=== PATIENT | male | born 1945 | race Caucasian/White ===

== ENCOUNTER → 2020-05-23 14:30 | Outpatient (BNV) | payer MEDICARE, SELFPAY | PROVIDERS: PCP Internal Medicine; Visit Provider Internal Medicine | DX: C15.9 Malignant neoplasm of esophagus, unspecified (principal); R13.10 Dysphagia, unspecified; G62.0 Drug-induced polyneuropathy | CPT/HCPCS: 99213; 99214; 99215; G2211 ==

== ENCOUNTER 2020-08-02 23:55 | Inpatient (IN) | payer MEDICARE, SELFPAY ==
[2020-08-03] VITALS (15 sets, daily range): BP systolic 131–160; BP diastolic 64–102; PULSE 66–94; RESP 16–18; TEMP 36.1–37.4; O2SAT 84–97; BMI 25.9
--- NOTE | 2020-08-03 00:18 | ED_ITS ---
HPI - Abdominal Pain General Chief Complaint: Abdominal Pain Stated Complaint: ABD PAIN X'S A COUPLE HOURS Time Seen by Provider: 08/03/20 00:18 Source: patient Mode of arrival: EMS Limitations: no limitations History of Present Illness HPI narrative: Patient history of esophageal cancer status post G-tube placement 2019 had small-bowel obstruction 6 months ago was doing fine for last few months today around 18:00 noticed mid abdominal pain with feeling of gas and slight distention with nausea similar to that in last time when he had small-bowel obstruction MD elicited complaint: abdominal pain Pertinent past history: constipation and other (Small-bowel obstruction) Onset (ago): hour(s) (6) Pain Consistency: constant Location: periumbilical Severity: moderate Quality: cramping Radiation: none Migration to: no migration Exacerbating factors: nothing Relieving factors: nothing Associated symptoms: nausea Related Data Home Medications Medication Instructions Recorded Confirmed cetirizine [Allergy Relief 10 mg PO DAILY 05/23/20 08/03/20 (cetirizine)] docusate calcium 100 mg PO BID 05/23/20 08/03/20 fluticasone propionate 50 mcg INTRANASAL DAILY 05/23/20 08/03/20 lisinopril 10 mg PO DAILY 05/23/20 08/03/20 omeprazole 40 mg PO DAILY 05/23/20 08/03/20 polyethylene glycol 3350 [Miralax] 17 g PO DAILY 05/23/20 08/03/20 rosuvastatin 20 mg PO DAILY 05/23/20 08/03/20 verapamil 240 mg PO DAILY 05/23/20 08/03/20 Allergies Allergy/AdvReac Type Severity Reaction Status Date / Time No Known Allergies Allergy Verified 05/23/20 15:11 [No Known Allergies*] Review of Systems Review of Systems Constitutional : No Weight loss, No Fever, No Chills ENT/Mouth : No sore throat, No Rhinorrhea Eyes: No Eye Pain, No Swelling Cardiovascular : No Chest Pain, no palpitations Respiratory : No Cough, No Sputum, no shortness of breath Gastrointestinal :+ Nausea, No Vomiting, No Diarrhea, + abdominal Pain, no black stools Genitourinary : No Dysuria, No Urinary Frequency Musculoskeletal : No joint pain, No Myalgias, No Joint Swelling Skin : No Skin Lesions, No rash Neuro : No Weakness, No Numbness, No Dizziness, No Headache Psych : No Anxiety/Panic, No Depression Heme/Lymph: No Bruising, No Lymphadenopathy Endocrine : No Polyuria, No Polydipsia All other systems reviewed and are negative Physical Exam Vital Signs: Vital Signs: Last Vital Signs Temp 97 F 08/03/20 00:18 Pulse 66 08/03/20 03:00 Resp 18 08/03/20 03:00 BP 143/90 H 08/03/20 03:00 Pulse Ox 94 08/03/20 03:00 Body Mass Index 25.9 Appearance: Alert. Oriented X3. No acute distress. Eyes: Pupils equal, round and reactive to light. ENT: Pharynx normal. Neck: Normal inspection. Neck supple. CVS: Normal heart rate and rhythm. Pulses normal. Respiratory: No respiratory distress. Breath sounds normal. Abdomen: Soft, mid abdominal tenderness with gaseous distension Bowel sounds are hyperactive, no mass palpable, no CVA tenderness Skin: Skin warm and dry. Normal skin color. Normal skin turgor. Extremities: No lower extremity edema. Neuro: Oriented X 3. No motor deficit. No sensory deficit. MDM - Abdominal Pain MDM Narrative Medical decision making narrative: Patient with mid abdominal distension with nausea clinical small-bowel obstruction CT scan showed small bowel obstruction likely from the previous G-tube. Patient felt better after NG tube was placed and 600 cc of gastric fluid drained. Case discussed Dr. Gregory surgeon will admit the patient to his service Differential Diagnosis Differential diagnosis: Likely pancreatitis and small bowel obstruction Medical Records Attestation: I reviewed the patient's medical records. Lab Data Attestation: I reviewed the patient's lab results. Result diagrams: 08/03/20 01:12 08/03/20 01:13 Labs: Lab Results 08/03/20 08/03/20 08/03/20 Range/Units 00:15 01:11 01:12 WBC 10.4 (4.8-10.8) X10*3/uL RBC 5.27 (4.60-5.80) X10*6/uL Hgb 15.9 (14.0-18.0) g/dl Hct 46.7 (42-52) % MCV 88.6 (80-98) fL MCH 30.2 (27.0-33.0) pg MCHC 34.0 (31.0-36.0) g/dl RDW 12.9 (11.0-16.0) % Plt Count 198 (160-400) X10*3/uL MPV 10.7 (9.4-12.4) fL Immature Gran % (Auto) 0.2 (0.0-0.4) % Neut % (Auto) 73.0 (45-73) % Lymph % (Auto) 16.8 L (20-40) % Beaver % (Auto) 8.7 (2-11) % Eos % (Auto) 1.1 (0-4) % Baso % (Auto) 0.2 (0-2) % Lymph # (Auto) 1.7 (1.2-4.9) X10*3/uL Beaver # (Auto) 0.9 (0.1-1.2) X10*3/uL Eos # (Auto) 0.1 (0.0-0.4) X10*3/uL Baso # (Auto) 0.0 (0.0-0.2) X10*3/uL Abs Immat Gran (auto) 0.02 (0.00-0.03) X10*3/uL Absolute Neuts (auto) 7.6 (2.0-8.3) X10*3/uL Absolute Nucleated RBC 0.000 (0.0-0.012) X10*3/uL Nucleated RBC % (auto) 0.0 (0.0-0.2) /100WBC Sodium (135-145) mmol/L Potassium (3.3-5.1) mmol/l Chloride (96-108) mmol/L Carbon Dioxide (22-29) mmol/L Anion Gap (12-20) BUN (9-16) mg/dL Creatinine (0.5-1.4) mg/dL Estim Creat Clear Calc Estimated GFR Random Glucose (60-115) mg/dL Lactic Acid 1.4 (0.5-2.0) mmol/L Calcium (8.4-10.2) mg/dL Total Bilirubin (0.0-1.0) mg/dL Direct Bilirubin (0.0-0.5) mg/dL AST (5-37) U/L ALT (0-40) U/L Alkaline Phosphatase (39-117) U/L Total Protein (6.5-8.0) g/dL Albumin (3.5-5.0) g/dL Lipase (8-78) U/L COVID-19 (NUZHAT) Negative (Negative) COVID-19 Clin Com See Note 08/03/20 08/03/20 Range/Units 01:13 01:13 WBC (4.8-10.8) X10*3/uL RBC (4.60-5.80) X10*6/uL Hgb (14.0-18.0) g/dl Hct (42-52) % MCV (80-98) fL MCH (27.0-33.0) pg MCHC (31.0-36.0) g/dl RDW (11.0-16.0) % Plt Count (160-400) X10*3/uL MPV (9.4-12.4) fL Immature Gran % (Auto) (0.0-0.4) % Neut % (Auto) (45-73) % Lymph % (Auto) (20-40) % Beaver % (Auto) (2-11) % Eos % (Auto) (0-4) % Baso % (Auto) (0-2) % Lymph # (Auto) (1.2-4.9) X10*3/uL Beaver # (Auto) (0.1-1.2) X10*3/uL Eos # (Auto) (0.0-0.4) X10*3/uL Baso # (Auto) (0.0-0.2) X10*3/uL Abs Immat Gran (auto) (0.00-0.03) X10*3/uL Absolute Neuts (auto) (2.0-8.3) X10*3/uL Absolute Nucleated RBC (0.0-0.012) X10*3/uL Nucleated RBC % (auto) (0.0-0.2) /100WBC Sodium 139 (135-145) mmol/L Potassium 4.4 (3.3-5.1) mmol/l Chloride 105 (96-108) mmol/L Carbon Dioxide 24 (22-29) mmol/L Anion Gap 14 (12-20) BUN 11 (9-16) mg/dL Creatinine 0.95 (0.5-1.4) mg/dL Estim Creat Clear Calc 61.8 Estimated GFR > 60 Random Glucose 127 H D (60-115) mg/dL Lactic Acid (0.5-2.0) mmol/L Calcium 8.7 (8.4-10.2) mg/dL Total Bilirubin 0.3 (0.0-1.0) mg/dL Direct Bilirubin 0.2 (0.0-0.5) mg/dL AST 17 (5-37) U/L ALT 13 (0-40) U/L Alkaline Phosphatase 115 (39-117) U/L Total Protein 6.8 (6.5-8.0) g/dL Albumin 4.0 (3.5-5.0) g/dL Lipase 19 (8-78) U/L COVID-19 (NUZHAT) (Negative) COVID-19 Clin Com ECG Data Attestation: I personally reviewed and interpreted this ECG as follows: Interpretation: Normal sinus rhythm heart rate 72 left axis deviation right bundle-branch block no acute ST T wave changes no acute ischemia Discharge Plan Discharge Clinical Impression: Small bowel obstruction Patient Disposition: Admitted As Inpatient [facility] Past Medical History Medical History (Updated 08/03/20 @ 02:07 by Ulisses Gregory MD) Basal cell carcinoma, scalp/neck Cervical spondylosis Diverticulosis History of jejunostomy tube placement Hypercholesterolemia Hypertension Melanoma Osteoarthritis Prostate CA Small bowel obstruction Vitamin B12 deficiency Surgical History (Updated 08/03/20 @ 02:07 by Ulisses Gregory MD) H/O esophagectomy History of appendectomy History of incisional hernia repair History of prostatectomy Social History Social History Advance Directives: No Advance Directives Information Provided: No
--- NOTE | 2020-08-03 00:25 | ECG_ITS ---
Test Reason : ABD PAIN Blood Pressure : / mmHG Vent. Rate : 072 BPM Atrial Rate : 072 BPM P-R Int : 138 ms QRS Dur : 122 ms QT Int : 424 ms P-R-T Axes : 037 -34 000 degrees QTc Int : 464 ms Normal sinus rhythm Left axis deviation Right bundle branch block Abnormal ECG When compared with ECG of 13-FEB-2020 01:45, No significant change was found Referred By: Saul Dee Electronically Signed By:MIKHAIL OLGUIN MD
--- NOTE | 2020-08-03 00:26 | XR_ITS ---
EXAMINATION: CHEST 1 VIEW CLINICAL INFORMATION: Pain. COMPARISON: 02/13/2020. TECHNIQUE: An AP view of the chest is provided. FINDINGS: The cardiac silhouette is not enlarged. A right-sided port is in unchanged position. The mediastinal and hilar contours are unremarkable. There are neither pleural effusions nor pneumothoraces. There are no consolidations. The osseous structures are stable. XR/XR chest 1V IMPRESSION: No evidence for acute disease.
--- NOTE | 2020-08-03 00:27 | CT_ITS ---
EXAMINATION: CT ABDOMEN AND PELVIS WITHOUT CONTRAST CLINICAL INFORMATION: Mid abdominal pain. COMPARISON: 02/13/2020. TECHNIQUE: Contiguous axial thin section helical images of the abdomen and pelvis were performed without oral or IV contrast. The data set was reformatted in the coronal and sagittal planes and reviewed on an independent workstation. DLP: 596 mGy-cm. FINDINGS: The visualized lung bases are clear. The visualized portions of the heart are unremarkable. The liver is of normal size and attenuation without focal lesions nor intrahepatic biliary ductal dilation. A normal gallbladder is identified. There is no wall thickening or discernible pericholecystic fluid. The spleen, pancreas, adrenal glands are unremarkable. Both kidneys are of normal size and attenuation without hydronephrosis or nephrolithiasis. There is no abdominal free fluid. There is neither mesenteric nor retroperitoneal lymphadenopathy. The patient is status post esophagectomy and gastric pull-up. There are multiple moderately dilated loops of proximal to mid small bowel. Distal loops of small bowel are slightly compressed. There is diverticulosis without evidence of diverticulitis; otherwise, unremarkable unopacified loops of small and large bowel are identified. There is no pelvic free fluid. Surgical clips are present within the left hemipelvis. The urinary bladder is unremarkable. There is neither pelvic nor inguinal lymphadenopathy. Bone windows: Neither sclerotic nor lytic bone lesions are identified. CT/CT abdomen pelvis wo con IMPRESSION: Small bowel obstruction. Diverticulosis without evidence of diverticulitis. Automated exposure control (Care Dose) Adjustment of the mA and/or kv according to patient size (this includes techniques or standardized protocols for targeted exams where dose is matched to indication / reason for exam; i.e. extremities or head).
[2020-08-03] MEDS: ondansetron HCL 4 MG/2 ML VIAL IVPUSH ×2 (00:38→19:43)
[2020-08-03] MEDS: Morphine Sulfate 4 MG/ML CARTRIDGE IVPUSH ×6 (00:38→19:43)
[2020-08-03] MEDS: 0.9 % Sodium Chloride 1,000 ML 999 ML IVCONT (00:40)
[2020-08-03 01:26] LABS: Basophils Percent Auto 0.2 % (0-2); Eosinophils Absolute Auto 0.1 X10*3/uL (0.0-0.4); Eosinophils Percent Auto 1.1 % (0-4); Hematocrit 46.7 % (42-52); Hemoglobin 15.9 g/dl (14.0-18.0); Imm Gran Abs Auto 0.02 X10*3/uL (0.00-0.03); Imm Gran Pct Auto 0.2 % (0.0-0.4); Lymphocytes Absolute Auto 1.7 X10*3/uL (1.2-4.9); Lymphocytes Percent Auto 16.8 % (20-40); Mean Corpuscular Hemoglobin 30.2 pg (27.0-33.0); Mean Corpuscular Volume 88.6 fL (80-98); Mean Platelet Volume 10.7 fL (9.4-12.4); Monocytes Absolute Auto 0.9 X10*3/uL (0.1-1.2); Monocytes Percent Auto 8.7 % (2-11); Neutrophils Absolute Auto 7.6 X10*3/uL (2.0-8.3); Platelet Count 198 X10*3/uL (160-400); Red Blood Count 5.27 X10*6/uL (4.60-5.80); Red Cell Distribution Width 12.9 % (11.0-16.0); White Blood Count 10.4 X10*3/uL (4.8-10.8)
[2020-08-03 01:27] LABS: MANUAL DIFF FLAG NO
[2020-08-03 01:33] LABS: COVID-19 Test Negative (Negative); IDNOW Serial# 9DD0AD1C
--- NOTE | 2020-08-03 01:54 | PC.NURSE ---
16F NG TUBE INSERTED BY . AWAITING FOR CONFIRMED PLACEMENT. PT TOLERATED WELL.
--- NOTE | 2020-08-03 01:58 | PM.HPGS ---
History of Present Illness History of Present Illness Date of Service: 08/03/20 Chief complaint: small bowel obstruction Narrative: Yoseph Orellana is a 74 year old male patient with a history of esophageal cancer s/p esophagectomy in [place], and a repair of an incisional hernia with mesh (Dr. Jj) and a previous history of small bowel obstruction 6 months ago now presenting with complaints of nausea and vomiting. The symptoms started at around 18:00 yesterday after eating a blueberry pie. He tried going to bed but the symptoms progressed and he subsequently presented to the emergency department after speaking with his primary care physician. In the emergency department he was found to have abdominal distension and a CT of the abdomen obtained. This revealed dilated loops of small bowel with a transition to decompressed bowel suggestive of a small bowel obstruction. NGT was placed in the ED. He is admitted to the surgical service for management of the SBO. Review of Systems Constitutional: Constitutional: Denies chills, Denies fever(s), Denies headache(s) and Denies poor appetite ENT: Denies dizziness and Denies headache(s) Cardiovascular: Cardiovascular: Denies chest pain, Denies rapid heart rate, Denies palpitations and Denies slow heart rate Respiratory: Respiratory: Denies chest congestion, Denies cough, Denies pain on inspiration and Denies wheezing Gastrointestinal: Gastrointestinal: Reports abdominal pain, Reports bloating, Reports nausea and Reports vomiting Musculoskeletal: Musculoskeletal: Denies back pain, Denies arthralgias, Denies joint swelling and Denies numbness Integumentary/Breasts: Skin/Breast: Denies change in pigmentation, Denies erythema and Denies rash Comments: Recent shingles rash on the left abdomen Neurologic: Denies confusion, Denies dizziness, Denies headache(s) and Denies numbness Psychiatric: Psychiatric: Denies anxiety, Denies confusion and Denies depression Endocrine: Endocrine: Denies palpitations Hematologic/Lymphatic: Hematologic/Lymphatic: Denies easy bleeding, Denies easy bruising and Denies lymphadenopathy Allergic/Immunologic: Allergic/Immunologic: Denies wheezing PMFSH Past Medical History Medical History (Updated 08/03/20 @ 08:17 by Ulisses Gregory MD) Basal cell carcinoma, scalp/neck Cervical spondylosis Diverticulosis History of jejunostomy tube placement Hypercholesterolemia Hypertension Melanoma Osteoarthritis Prostate CA Shingles Small bowel obstruction Vitamin B12 deficiency Surgical History Surgical History (Updated 08/03/20 @ 02:07 by Ulisses Gregory MD) H/O esophagectomy History of appendectomy History of incisional hernia repair History of prostatectomy Social History Social History Advance Directives: No Advance Directives Information Provided: No Meds Allergies Allergy/AdvReac Type Severity Reaction Status Date / Time No Known Allergies Allergy Verified 05/23/20 15:11 [No Known Allergies*] Home Medications Medication Instructions Recorded Confirmed Type cetirizine [Allergy Relief 10 mg PO DAILY 05/23/20 08/03/20 History (cetirizine)] docusate calcium 100 mg PO BID 05/23/20 08/03/20 History fluticasone propionate 50 mcg INTRANASAL DAILY 05/23/20 08/03/20 History lisinopril 10 mg PO DAILY 05/23/20 08/03/20 History omeprazole 40 mg PO DAILY 05/23/20 08/03/20 History polyethylene glycol 3350 [Miralax] 17 g PO DAILY 05/23/20 08/03/20 History rosuvastatin 20 mg PO DAILY 05/23/20 08/03/20 History verapamil 240 mg PO DAILY 05/23/20 08/03/20 History Physical Exam Vital Signs: Vital Signs: Last Vital Signs Temp 97 F 08/03/20 00:18 Pulse 72 08/03/20 01:17 Resp 18 08/03/20 01:17 BP 131/82 08/03/20 01:17 Pulse Ox 96 08/03/20 01:17 Body Mass Index 25.9 Const: General: cooperative, comfortable and well developed; No confusion Nutritional Appearance: well nourished Orientation/consciousness: patient oriented x3 and No confusion Eyes: Sclerae: sclerae normal EOM: EOMs intact bilaterally Neck: Neck: Yes normal visual inspection Resp: Effort & Inspection: normal respiratory effort, no cough and no respiratory distress Cardio: Jugular venous distension: no JVD Rate: regular rate Rhythm: regular rhythm GI: Inspection: Yes normal to inspection Palpation (GI): Soft to palpation, nontender, no guarding and not rigid Percussion: Yes normal to percussion Auscultation: normal bowel sounds Skin: General skin exam: dry skin Rashes: rashes noted (Small residual noted in the upper abdomen to the left of umbilicus) Neuro: General: patient oriented x3, no focal motor deficits and No confusion Extrem: General: Yes full ROM and Yes no clubbing, cyanosis or edema Results Results Labs: Short CBC 08/03/20 Range/Units 01:12 WBC 10.4 (4.8-10.8) X10*3/uL Hgb 15.9 (14.0-18.0) g/dl Hct 46.7 (42-52) % Plt Count 198 (160-400) X10*3/uL EXAMINATION: CT ABDOMEN AND PELVIS WITHOUT CONTRAST CLINICAL INFORMATION: Mid abdominal pain. COMPARISON: 02/13/2020. TECHNIQUE: Contiguous axial thin section helical images of the abdomen and pelvis were performed without oral or IV contrast. The data set was reformatted in the coronal and sagittal planes and reviewed on an independent workstation. DLP: 596 mGy-cm. FINDINGS: The visualized lung bases are clear. The visualized portions of the heart are unremarkable. The liver is of normal size and attenuation without focal lesions nor intrahepatic biliary ductal dilation. A normal gallbladder is identified. There is no wall thickening or discernible pericholecystic fluid. The spleen, pancreas, adrenal glands are unremarkable. Both kidneys are of normal size and attenuation without hydronephrosis or nephrolithiasis. There is no abdominal free fluid. There is neither mesenteric nor retroperitoneal lymphadenopathy. The patient is status post esophagectomy and gastric pull-up. There are multiple moderately dilated loops of proximal to mid small bowel. Distal loops of small bowel are slightly compressed. There is diverticulosis without evidence of diverticulitis; otherwise, unremarkable unopacified loops of small and large bowel are identified. There is no pelvic free fluid. Surgical clips are present within the left hemipelvis. The urinary bladder is unremarkable. There is neither pelvic nor inguinal lymphadenopathy. Bone windows: Neither sclerotic nor lytic bone lesions are identified. CT/CT abdomen pelvis wo con IMPRESSION: Small bowel obstruction. Diverticulosis without evidence of diverticulitis. Automated exposure control (Care Dose) Adjustment of the mA and/or kv according to patient size (this includes techniques or standardized protocols for targeted exams where dose is matched to indication / reason for exam; i.e. extremities or head). Dictated By:FARHAD NUNEZ MD Signed By:<Electronically signed by FARHAD NUNEZ MD in OV>08/03/20 0107 Assessment and Plan (1) Small bowel obstruction: Status: Acute 74-year-old male patient with a previous history of multiple abdominal surgeries and previous history of small-bowel obstruction managed non operatively 6 months ago now presenting with recurrent episode of abdominal distension, nausea, and vomiting. Symptoms began last evening and he subsequently presented to the emergency department. CT of the abdomen and pelvis confirmed a small-bowel obstruction perhaps due to adhesions. A nasogastric tube was placed in the emergency department and the patient reports some relief of the abdominal pain but denies passing flatus or bowel movement. Will continue with nasogastric tube decompression and IV fluid rehydration. Patient reports understanding and agrees with the plan.
[2020-08-03 02:00] LABS: Lactic Acid 1.4 mmol/L (0.5-2.0)
--- NOTE | 2020-08-03 02:00 | PC.NURSE ---
NG CONNECTED TO SUCTION AND APPROX 500ML OF STOMACH CONTENTS IN SUCTION CANISTER. PT REMAINS ALERT, RESPIRATIONS N/L. PT STATES IM FEELING MUCH BETTER. PT ON MONITOR. VS OBTAINED. AWAITING PENDING LABS.
[2020-08-03 02:06] LABS: Alanine Aminotransferase 13 U/L (0-40); Alkaline Phosphatase 115 U/L (39-117); Anion Gap 14 (12-20); Aspartate Amino Transferase 17 U/L (5-37); Bilirubin Direct 0.2 mg/dL (0.0-0.5); Bilirubin Total 0.3 mg/dL (0.0-1.0); Blood Urea Nitrogen 11 mg/dL (9-16); Calcium 8.7 mg/dL (8.4-10.2); Carbon Dioxide 24 mmol/L (22-29); Chloride 105 mmol/L (96-108); Creatinine Clr Calc Pharmacy 61.8; Estimated Glomerular Filt Rate > 60; Glucose Random 127 mg/dL (60-115); Lipase 19 U/L (8-78); Potassium 4.4 mmol/l (3.3-5.1); Sodium 139 mmol/L (135-145); Total Protein 6.8 g/dL (6.5-8.0)
--- NOTE | 2020-08-03 02:47 | PC.NURSE ---
PT C/O LOWER ABD PAIN AND CRAMPING. MD AWARE OF PAIN. PT ALERT, RESPIRATIONS EASY, N/L. NG TUBE CONECTED TO SUCTION. PT IN NAD. WILL CONTINUE TO MONITOR PT.
--- NOTE | 2020-08-03 02:55 | PC.NURSE ---
MED REC DONE.
--- NOTE | 2020-08-03 03:21 | PC.NURSE ---
PT RATING ABD PAIN 10/10, DR CHARLES AWARE AND PT MEDICATED PER EMAR FOR PAIN. NG TUBE REMAINS INTACT AND CONNECTED TO SUCTION. NO TUBE PLACEMENT PER DR CHARLES'S ORDER D/T STOMACH CONTENTS IN SUCTION CANISTER. WILL CONTINUE TO MONITOR PT.
--- NOTE | 2020-08-03 06:27 | PC.NURSE ---
report given to floor. pt on stretcher to room #380. pt left ed in nad. pt to floor at this time.
[2020-08-03] MEDS: Dextrose 5 % and Lactated Ring 1,000 ML 125 ML IVCONT ×3 (08:26→22:57)
--- NOTE | 2020-08-03 12:24 | MHC.CM.PN ---
PT REPORTS HE LIVES AT HOME WITH HIS ANGELY AND IS INDEPENDENT WITH ALL CARE AND MOBILITY. PT DENIES THE USE OF ANY DME OR HOME SERVICES. PT HAS A HCP ON FILE NAMING HIS AND SON, NANDO, HIS PRIMARY AND ALTERNATE AGENTS RESPECTIVELY. PT CONFIRMS HIS PCP IS EDGARD MARCELINO. IMM DELIVERED CURRENT DC PLAN IS HOME WITH NO SERVICES PT REPORTS HIS SON WILL PROVIDE TRANSPORTATION
[2020-08-03] MEDS: lisinopriL 10 MG TABLET PO (18:28)
[2020-08-03] MEDS: VerapamiL HCL SR 240 MG TABLET.ER PO (19:34)
[2020-08-04 03:50] VITALS: BP 133/75; PULSE 60; RESP 16; TEMP 36.6; O2SAT 94
[2020-08-04 06:00] LABS: MANUAL DIFF FLAG NO
[2020-08-04 06:05] LABS: Basophils Percent Auto 0.2 % (0-2); Eosinophils Absolute Auto 0.2 X10*3/uL (0.0-0.4); Eosinophils Percent Auto 3.2 % (0-4); Hemoglobin 13.4 g/dl (14.0-18.0); Imm Gran Abs Auto 0.01 X10*3/uL (0.00-0.03); Imm Gran Pct Auto 0.2 % (0.0-0.4); Lymphocytes Absolute Auto 1.2 X10*3/uL (1.2-4.9); Lymphocytes Percent Auto 25.7 % (20-40); Mean Corpuscular HGB Conc 32.7 g/dl (31.0-36.0); Mean Corpuscular Hemoglobin 29.9 pg (27.0-33.0); Mean Corpuscular Volume 91.5 fL (80-98); Mean Platelet Volume 10.9 fL (9.4-12.4); Monocytes Absolute Auto 0.9 X10*3/uL (0.1-1.2); Monocytes Percent Auto 19.2 % (2-11); Neutrophils Absolute Auto 2.4 X10*3/uL (2.0-8.3); Neutrophils Percent Auto 51.5 % (45-73); Platelet Count 153 X10*3/uL (160-400); Red Blood Count 4.48 X10*6/uL (4.60-5.80); Red Cell Distribution Width 13.2 % (11.0-16.0); White Blood Count 4.7 X10*3/uL (4.8-10.8)
[2020-08-04 06:31] LABS: Anion Gap 11 (12-20); Blood Urea Nitrogen 9 mg/dL (9-16); Carbon Dioxide 26 mmol/L (22-29); Chloride 109 mmol/L (96-108); Creatinine Clr Calc Pharmacy 73.4; Estimated Glomerular Filt Rate > 60; Glucose Random 117 mg/dL (60-115); Potassium 4.3 mmol/l (3.3-5.1); Sodium 142 mmol/L (135-145)
[2020-08-04] MEDS: Dextrose 5 % and Lactated Ring 1,000 ML 125 ML IVCONT ×2 (06:33→14:08)
[2020-08-04 07:59] VITALS: BP 152/78; PULSE 63; RESP 18; TEMP 37.2; O2SAT 94
[2020-08-04] MEDS: lisinopriL 10 MG TABLET PO (09:06)
[2020-08-04] MEDS: VerapamiL HCL SR 240 MG TABLET.ER PO (09:07)
--- NOTE | 2020-08-04 09:18 | PM.PNGS ---
Subjective Subjective Date of Service: 08/04/20 Interval history: Patient feels much improved this morning with decreased abdominal pain. NG tube output has decreased. He reports passing flatus and feels the urge to have a bowel movement. He denies any further nausea or vomiting. Physical Exam Vital Signs: Vital Signs: Last Vital Signs Temp 98.9 F 08/04/20 07:59 Pulse 63 08/04/20 07:59 Resp 18 08/04/20 07:59 BP 152/78 H 08/04/20 07:59 Pulse Ox 94 08/04/20 07:59 Body Mass Index 25.9 Const: General: cooperative, healthy appearing, comfortable and no acute distress Resp: Effort & Inspection: normal respiratory effort GI: Other: Soft, nondistended, nontender, no rebound, no guarding, no rigidity Skin: Other: Warm and dry, no rash Neuro: Other: Alert oriented x3 no motor weakness is Extrem: Other: Full range of motion, no edema Progress Note: A&P Assessment and plan (1) Small bowel obstruction: Status: Acute Assessment and Plan: 74-year-old male patient presenting with a history of small-bowel obstruction now hospital day number 2. Nasogastric tube was inserted in the emergency department and is now decreasing it output. Patient's abdominal exam is much improved and patient is symptomatically improved; now passing flatus but no bowel movement as of yet. Plan: Clamp NG tube for 4 hours and check residuals. If less than 100 mL residual will removed tube and start clear liquids. Patient understands and agrees with the plan. Fall Risk Details Current Medications: Current Medications Generic Name Dose Route Start Last Admin Trade Name Alexq PRN Reason Stop Dose Admin Acetaminophen 650 mg 08/03/20 06:40 Acetaminophen 325 Mg Tablet PO Q6H PRN Pain, Mild (Pain Scale 1-3) Docusate Sodium 100 mg 08/03/20 06:40 Docusate Sodium 100 Mg Capsule PO DAILY PRN Constipation Fluticasone Propionate 1 spray 08/04/20 09:00 Fluticasone Propionate Nasal 16 Gm [place] NOSTRIL-B DAILY GAYLA Dextrose/Lactated Ringer's 1,000 mls @ 125 mls/hr 08/03/20 06:40 08/04/20 06:33 D5lr IVCONT 125 mls/hr .Q8H GAYLA Administration Lisinopril 10 mg 08/03/20 17:00 08/04/20 09:06 Lisinopril 10 Mg Tablet PO 10 mg DAILY GAYLA Administration Protocol Morphine Sulfate 4 mg 08/03/20 06:40 08/03/20 19:43 Morphine Sulfate 4 Mg/Ml Cartridge IVPUSH 4 mg Q4H PRN Administration Pain, Severe (Pain Scale 7-10) Omeprazole 40 mg 08/04/20 09:00 08/04/20 09:07 Omeprazole 40 Mg Capsule.Dr PO 40 mg DAILY GAYLA Administration Ondansetron HCl 4 mg 08/03/20 06:40 08/03/20 19:43 Ondansetron Hcl 4 Mg/2 Ml Vial IVPUSH 4 mg Q8H PRN Administration Nausea and Vomiting Pharmacy Consult 1 each 08/03/20 06:40 Consult Rx Perform Med Rec MISCELLANE ONCE PRN Consult order Sodium Chloride 3 ml 08/03/20 08:00 08/04/20 09:18 0.9 % Sodium Chloride Flush 3 Ml Syringe IVFLUSH Not Given [facility] Verapamil HCl 240 mg 08/03/20 17:00 08/04/20 09:07 Verapamil Hcl Sr 240 Mg Tablet.Er PO 240 mg DAILY GAYLA Administration Protocol Zolpidem Tartrate 5 mg 08/03/20 06:40 Zolpidem Tartrate 5 Mg Tablet PO BEDTIME PRN Insomnia Time Spent With Patient Time: Total time spent is greater than 50% in coordination of care (as documented) at patient's floor/unit and/or counseling patient: Time with patient: 15 - 24 minutes
[2020-08-04 11:56] VITALS: BP 139/71; PULSE 62; RESP 18; TEMP 36.2; O2SAT 90
--- NOTE | 2020-08-04 13:15 | PC.NURSE ---
NGT CLAMPED AT 0900. RESIDUAL CHECKED AT 1300. RESIDUAL WAS 40ML. NGT REMOVED PER MD ORDER. NOTIFIED DOCTOR ELTON.
[2020-08-04 16:09] VITALS: BP 131/68; PULSE 59; RESP 18; TEMP 36.8; O2SAT 93
[2020-08-04 19:27] VITALS: BP 154/79; PULSE 63; TEMP 36.6; O2SAT 94
[2020-08-04 23:31] VITALS: BP 142/72; PULSE 59; RESP 20; TEMP 36.6; O2SAT 94
[2020-08-05 03:44] VITALS: BP 153/82; PULSE 61; RESP 19; TEMP 36.4; O2SAT 93
[2020-08-05 08:00] VITALS: BP 169/82; PULSE 74; RESP 18; TEMP 36.4; O2SAT 96
[2020-08-05] MEDS: 0.9 % Sodium Chloride Flush 3 ML SYRINGE IVFLUSH ×2 (08:26→17:20)
[2020-08-05 08:27] VITALS: BP 169/82; PULSE 74
[2020-08-05] MEDS: VerapamiL HCL SR 240 MG TABLET.ER PO (08:27)
[2020-08-05] MEDS: Fluticasone Propionate Nasal 16 GM SPRAY 1 SPRAY NOSTRIL-B (08:27)
[2020-08-05] MEDS: Omeprazole 40 MG CAPSULE.DR PO (08:27)
[2020-08-05] MEDS: lisinopriL 10 MG TABLET PO (08:27)
--- NOTE | 2020-08-05 09:26 | PM.PNGS ---
Subjective Subjective Date of Service: 08/05/20 Interval history: Nasogastric tube removed yesterday and patient did well without nausea or vomiting. He started on clear liquids last evening and was able to take a small amount. He continues to pass flatus but denies a bowel movement. He would like to stay on clear liquids for this morning. Physical Exam Vital Signs: Vital Signs: Last Vital Signs Temp 97.6 F 08/05/20 08:00 Pulse 74 08/05/20 08:27 Resp 18 08/05/20 08:00 BP 169/82 H 08/05/20 08:27 Pulse Ox 96 08/05/20 08:00 Body Mass Index 25.9 Const: General: cooperative, healthy appearing, comfortable and no acute distress Resp: Other: Breathing comfortably on room air, no respiratory distress GI: Other: Soft, nondistended, nontender to deep palpation, no rebound or guarding Skin: Other: Warm, dry, no rash Extrem: Other: No peripheral edema, normal range of motion Psych: Appearance: well kempt Speech and movement: Clear speech present Progress Note: A&P Assessment and plan (1) Small bowel obstruction: Status: Acute Assessment and Plan: Patient with a partial small-bowel obstruction which appears to be resolving with non operative means. The nasogastric tube was removed yesterday evening and he was started on clear liquids. He denies any further nausea or vomiting. I will continue the clear liquids for today and await return of full bowel function. Discharge plan when tolerating regular diet and having bowel movements. Fall Risk Details Current Medications: Current Medications Generic Name Dose Route Start Last Admin Trade Name Maureen PRN Reason Stop Dose Admin Acetaminophen 650 mg 08/03/20 06:40 Acetaminophen 325 Mg Tablet PO Q6H PRN Pain, Mild (Pain Scale 1-3) Docusate Sodium 100 mg 08/03/20 06:40 Docusate Sodium 100 Mg Capsule PO DAILY PRN Constipation Fluticasone Propionate 1 spray 08/04/20 09:00 08/05/20 08:27 Fluticasone Propionate Nasal 16 Gm [place] NOSTRIL-B 1 spray DAILY GAYLA Administration Lisinopril 10 mg 08/03/20 17:00 08/05/20 08:27 Lisinopril 10 Mg Tablet PO 10 mg DAILY GAYLA Administration Protocol Morphine Sulfate 4 mg 08/03/20 06:40 08/03/20 19:43 Morphine Sulfate 4 Mg/Ml Cartridge IVPUSH 4 mg Q4H PRN Administration Pain, Severe (Pain Scale 7-10) Omeprazole 40 mg 08/04/20 09:00 08/05/20 08:27 Omeprazole 40 Mg Capsule.Dr PO 40 mg DAILY GAYLA Administration Ondansetron HCl 4 mg 08/03/20 06:40 08/03/20 19:43 Ondansetron Hcl 4 Mg/2 Ml Vial IVPUSH 4 mg Q8H PRN Administration Nausea and Vomiting Oxycodone HCl 5 mg 08/04/20 18:47 Oxycodone Hcl Immed Release 5 Mg Tablet PO Q6H PRN Pain, Moderate (Pain Scale 4-6 Pharmacy Consult 1 each 08/03/20 06:40 Consult Rx Perform Med Rec MISCELLANE ONCE PRN Consult order Sodium Chloride 3 ml 08/03/20 08:00 08/05/20 08:26 0.9 % Sodium Chloride Flush 3 Ml Syringe IVFLUSH 3 ml QSHIFT GAYLA Administration Verapamil HCl 240 mg 08/03/20 17:00 08/05/20 08:27 Verapamil Hcl Sr 240 Mg Tablet.Er PO 240 mg DAILY GAYLA Administration Protocol Zolpidem Tartrate 5 mg 08/03/20 06:40 Zolpidem Tartrate 5 Mg Tablet PO BEDTIME PRN Insomnia Time Spent With Patient Time: Total time spent is greater than 50% in coordination of care (as documented) at patient's floor/unit and/or counseling patient: Time with patient: 15 - 24 minutes
[2020-08-05 12:00] VITALS: BP 155/85; RESP 18; TEMP 37.2; O2SAT 94
--- NOTE | 2020-08-05 12:10 | MHC.CM.PN ---
PER REVIEW OF PROGRESS NOTES, PATIENT STILL ON CLEAR LIQUIDS. PLAN IS TO DC ONCE TOLERATING PO CASE MANAGEMENT AVAILABLE FOR ANY DISCHARGE NEEDS.
[2020-08-05 16:00] VITALS: BP 146/68; PULSE 60; RESP 18; TEMP 37.2; O2SAT 100
[2020-08-05 19:29] VITALS: BP 115/67; PULSE 55; RESP 20; TEMP 37; O2SAT 98
[2020-08-06] VITALS (9 sets, daily range): BP systolic 127–160; BP diastolic 65–82; PULSE 55–77; RESP 17–19; TEMP 36.1–37.1; O2SAT 94–98
[2020-08-06] MEDS: 0.9 % Sodium Chloride Flush 3 ML SYRINGE IVFLUSH ×4 (01:02→21:54)
--- NOTE | 2020-08-06 09:05 | MHC.CM.PN ---
DISCHARGE PLAN HOME WITH NO SERVICES, SON NANDO TO TRANSPORT, POSSIBLE DISCHARGE LATER TODAY IF TOLERATES REGULAR DIET, SON TO DROP OF DENTURES. NO ANTICIPATED HOME SERVICES AT TIME OF THIS NOTE. NANDO RAMONITA [phone]
[2020-08-06] MEDS: VerapamiL HCL SR 240 MG TABLET.ER PO (09:52)
[2020-08-06] MEDS: lisinopriL 10 MG TABLET PO (09:53)
[2020-08-06] MEDS: Omeprazole 40 MG CAPSULE.DR PO (09:53)
[2020-08-06] MEDS: Fluticasone Propionate Nasal 16 GM SPRAY 1 SPRAY NOSTRIL-B (09:54)
--- NOTE | 2020-08-06 13:20 | PM.PNGS ---
Subjective Subjective Date of Service: 08/06/20 Interval history: Advanced to solid diet this morning and just had lunch. Currently denies pain. Passing flatus, had BM yesterday but not today. Reports difficulty with constipation normally. Physical Exam Vital Signs: Vital Signs: Last Vital Signs Temp 97.3 F 08/06/20 11:46 Pulse 62 08/06/20 11:46 Resp 18 08/06/20 11:46 BP 160/82 H 08/06/20 11:46 Pulse Ox 98 08/06/20 11:46 Body Mass Index 25.9 Const: General: comfortable, no acute distress and alert Orientation/consciousness: patient oriented x3 Eyes: Sclerae: sclerae normal Resp: Effort & Inspection: normal respiratory effort GI: Inspection: No distended Palpation (GI): Soft to palpation, nontender, no guarding, not rigid and No Rebound tenderness present Skin: General skin exam: no rashes or lesions noted Neuro: General: patient oriented x3 Extrem: General: Yes no clubbing, cyanosis or edema Progress Note: A&P Assessment and plan (1) Esophageal adenocarcinoma: Status: Chronic (2) Small bowel obstruction: Status: Acute Assessment and Plan: Resolved. Has evidence of return of GI function. Tolerating solid diet. VSS. Abd exam- soft, NTND. Will reassess tomorrow morning, if continues to feel well and tolerate diet, stable for d/c tomorrow. Patient comfortable with plan. Fall Risk Details Current Medications: Current Medications Generic Name Dose Route Start Last Admin Trade Name Freq PRN Reason Stop Dose Admin Acetaminophen 650 mg 08/03/20 06:40 Acetaminophen 325 Mg Tablet PO Q6H PRN Pain, Mild (Pain Scale 1-3) Docusate Sodium 100 mg 08/03/20 06:40 Docusate Sodium 100 Mg Capsule PO DAILY PRN Constipation Fluticasone Propionate 1 spray 08/04/20 09:00 08/06/20 09:54 Fluticasone Propionate Nasal 16 Gm [place] NOSTRIL-B 1 spray DAILY GAYLA Administration Lisinopril 10 mg 08/03/20 17:00 08/06/20 09:53 Lisinopril 10 Mg Tablet PO 10 mg DAILY GAYLA Administration Protocol Morphine Sulfate 4 mg 08/03/20 06:40 08/03/20 19:43 Morphine Sulfate 4 Mg/Ml Cartridge IVPUSH 4 mg Q4H PRN Administration Pain, Severe (Pain Scale 7-10) Omeprazole 40 mg 08/04/20 09:00 08/06/20 09:53 Omeprazole 40 Mg Capsule.Dr PO 40 mg DAILY GAYLA Administration Ondansetron HCl 4 mg 08/03/20 06:40 08/03/20 19:43 Ondansetron Hcl 4 Mg/2 Ml Vial IVPUSH 4 mg Q8H PRN Administration Nausea and Vomiting Oxycodone HCl 5 mg 08/04/20 18:47 Oxycodone Hcl Immed Release 5 Mg Tablet PO Q6H PRN Pain, Moderate (Pain Scale 4-6 Pharmacy Consult 1 each 08/03/20 06:40 Consult Rx Perform Med Rec MISCELLANE ONCE PRN Consult order Sodium Chloride 3 ml 08/03/20 08:00 08/06/20 09:55 0.9 % Sodium Chloride Flush 3 Ml Syringe IVFLUSH 3 ml QSHIFT GAYLA Administration Verapamil HCl 240 mg 08/03/20 17:00 08/06/20 09:52 Verapamil Hcl Sr 240 Mg Tablet.Er PO 240 mg DAILY GAYLA Administration Protocol Zolpidem Tartrate 5 mg 08/03/20 06:40 Zolpidem Tartrate 5 Mg Tablet PO BEDTIME PRN Insomnia Time Spent With Patient Time: Total time spent is greater than 50% in coordination of care (as documented) at patient's floor/unit and/or counseling patient: Time with patient: 15 - 24 minutes
--- NOTE | 2020-08-06 13:22 | PM.PNGS ---
Subjective Subjective Date of Service: 08/06/20 Interval history: Patient feels much improved today after tolerating clear liquids yesterday. He feels ready for a solid diet. He denies abdominal pain, nausea, or vomiting. He had several bowel movements in the past 24 hours. Physical Exam Vital Signs: Vital Signs: Last Vital Signs Temp 97.3 F 08/06/20 11:46 Pulse 62 08/06/20 11:46 Resp 18 08/06/20 11:46 BP 160/82 H 08/06/20 11:46 Pulse Ox 98 08/06/20 11:46 Body Mass Index 25.9 Const: General: cooperative, comfortable and no acute distress Neck: Neck: Yes normal visual inspection Resp: Other: Breathing comfortably on room air, no respiratory distress GI: Other: Soft, nondistended, nontender, no rebound or guarding Skin: Other: Warm and dry, no rash Extrem: Other: No edema Progress Note: A&P Assessment and plan (1) Small bowel obstruction: Status: Acute Assessment and Plan: 74-year-old male patient presenting with a recurrence small-bowel obstruction. The bowel obstruction is now resolved and he is tolerating clear liquids. He will be advanced to a low residue solid diet. If this is tolerated for the next several meals he would be ready for discharge to home. The patient understands and agrees with the plan. Fall Risk Details Current Medications: Current Medications Generic Name Dose Route Start Last Admin Trade Name Freq PRN Reason Stop Dose Admin Acetaminophen 650 mg 08/03/20 06:40 Acetaminophen 325 Mg Tablet PO Q6H PRN Pain, Mild (Pain Scale 1-3) Docusate Sodium 100 mg 08/03/20 06:40 Docusate Sodium 100 Mg Capsule PO DAILY PRN Constipation Fluticasone Propionate 1 spray 08/04/20 09:00 08/06/20 09:54 Fluticasone Propionate Nasal 16 Gm [place] NOSTRIL-B 1 spray DAILY GAYLA Administration Lisinopril 10 mg 08/03/20 17:00 08/06/20 09:53 Lisinopril 10 Mg Tablet PO 10 mg DAILY GAYLA Administration Protocol Morphine Sulfate 4 mg 08/03/20 06:40 08/03/20 19:43 Morphine Sulfate 4 Mg/Ml Cartridge IVPUSH 4 mg Q4H PRN Administration Pain, Severe (Pain Scale 7-10) Omeprazole 40 mg 08/04/20 09:00 08/06/20 09:53 Omeprazole 40 Mg Capsule.Dr PO 40 mg DAILY GAYLA Administration Ondansetron HCl 4 mg 08/03/20 06:40 08/03/20 19:43 Ondansetron Hcl 4 Mg/2 Ml Vial IVPUSH 4 mg Q8H PRN Administration Nausea and Vomiting Oxycodone HCl 5 mg 08/04/20 18:47 Oxycodone Hcl Immed Release 5 Mg Tablet PO Q6H PRN Pain, Moderate (Pain Scale 4-6 Pharmacy Consult 1 each 08/03/20 06:40 Consult Rx Perform Med Rec MISCELLANE ONCE PRN Consult order Sodium Chloride 3 ml 08/03/20 08:00 08/06/20 09:55 0.9 % Sodium Chloride Flush 3 Ml Syringe IVFLUSH 3 ml QSHIFT GAYLA Administration Verapamil HCl 240 mg 08/03/20 17:00 08/06/20 09:52 Verapamil Hcl Sr 240 Mg Tablet.Er PO 240 mg DAILY GAYLA Administration Protocol Zolpidem Tartrate 5 mg 08/03/20 06:40 Zolpidem Tartrate 5 Mg Tablet PO BEDTIME PRN Insomnia Time Spent With Patient Time: Total time spent is greater than 50% in coordination of care (as documented) at patient's floor/unit and/or counseling patient: Time with patient: 15 - 24 minutes
[2020-08-07 03:43] VITALS: BP 140/75; PULSE 59; RESP 19; TEMP 36.5; O2SAT 95
[2020-08-07 07:59] VITALS: BP 165/89; PULSE 58; RESP 16; TEMP 36.3; O2SAT 98
--- NOTE | 2020-08-07 08:13 | PM.PNGS ---
Subjective Subjective Date of Service: 08/07/20 <Katie Zavala PA-C - Last Filed: 08/07/20 08:15> 08/07/20 <Ulisses Gregory MD - Last Filed: 08/07/20 08:21> Interval history: Feeling well. Continues to tolerate solid diet without any further abdominal pain, nausea, vomiting. Passing flatus and has had a BM during stay. Feels ready to go home. <Katie Zavala PA-C - Last Filed: 08/07/20 08:15> Physical Exam Vital Signs: Vital Signs: Last Vital Signs Temp 97.3 F 08/07/20 07:59 Pulse 58 08/07/20 07:59 Resp 16 08/07/20 07:59 BP 165/89 H 08/07/20 07:59 Pulse Ox 98 08/07/20 07:59 Body Mass Index 25.9 <Katie Zavala PA-C - Last Filed: 08/07/20 08:15> Const: General: comfortable, no acute distress and alert <Katie Zavala PA-C - Last Filed: 08/07/20 08:15> Orientation/consciousness: patient oriented x3 <Katie Zavala PA-C - Last Filed: 08/07/20 08:15> Eyes: Sclerae: sclerae normal <Katie Zavala PA-C - Last Filed: 08/07/20 08:15> Resp: Effort & Inspection: normal respiratory effort <Katie Zavala PA-C - Last Filed: 08/07/20 08:15> GI: Inspection: No distended <Katie Zavala PA-C - Last Filed: 08/07/20 08:15> Palpation (GI): Soft to palpation and nontender <Katie Zavala PA-C - Last Filed: 08/07/20 08:15> Skin: General skin exam: no rashes or lesions noted <Katie Zavala PA-C - Last Filed: 08/07/20 08:15> Neuro: General: patient oriented x3 <Katie Zavala PA-C - Last Filed: 08/07/20 08:15> Progress Note: A&P Assessment and plan (1) Small bowel obstruction: Problem details: Resolved <Katie Zavala PA-C - Last Filed: 08/07/20 08:15> Status: Acute <Katie Zavala PA-C - Last Filed: 08/07/20 08:15> Assessment and Plan: Continues to tolerate solid diet with evidence of GI fxn. VSS. Abd exam- soft, NTND. Patient stable for d/c to home today. Can follow up as needed. Patient comfortable with plan. <Katie Zavala PA-C - Last Filed: 08/07/20 08:15> Patient is been able to tolerate lunch and dinner without nausea or vomiting. He continues to pass gas and stool feels his symptoms are much improved. Abdominal exam is soft and nondistended, nontender. Agree with the above assessment and plan. He may be discharged to home today with follow up as needed. <Ulisses Gregory MD - Last Filed: 08/07/20 08:21> (2) Esophageal adenocarcinoma: Status: Chronic <Katie Zavala PA-C - Last Filed: 08/07/20 08:15> Fall Risk Details Current Medications: Current Medications Generic Name Dose Route Start Last Admin Trade Name Freq PRN Reason Stop Dose Admin Acetaminophen 650 mg 08/03/20 06:40 Acetaminophen 325 Mg Tablet PO Q6H PRN Pain, Mild (Pain Scale 1-3) Docusate Sodium 100 mg 08/03/20 06:40 Docusate Sodium 100 Mg Capsule PO DAILY PRN Constipation Fluticasone Propionate 1 spray 08/04/20 09:00 08/06/20 09:54 Fluticasone Propionate Nasal 16 Gm [place] NOSTRIL-B 1 spray DAILY GAYLA Administration Lisinopril 10 mg 08/03/20 17:00 08/06/20 09:53 Lisinopril 10 Mg Tablet PO 10 mg DAILY GAYLA Administration Protocol Morphine Sulfate 4 mg 08/03/20 06:40 08/03/20 19:43 Morphine Sulfate 4 Mg/Ml Cartridge IVPUSH 4 mg Q4H PRN Administration Pain, Severe (Pain Scale 7-10) Omeprazole 40 mg 08/04/20 09:00 08/06/20 09:53 Omeprazole 40 Mg Capsule.Dr PO 40 mg DAILY GAYLA Administration Ondansetron HCl 4 mg 08/03/20 06:40 08/03/20 19:43 Ondansetron Hcl 4 Mg/2 Ml Vial IVPUSH 4 mg Q8H PRN Administration Nausea and Vomiting Oxycodone HCl 5 mg 08/04/20 18:47 Oxycodone Hcl Immed Release 5 Mg Tablet PO Q6H PRN Pain, Moderate (Pain Scale 4-6 Pharmacy Consult 1 each 08/03/20 06:40 Consult Rx Perform Med Rec MISCELLANE ONCE PRN Consult order Sodium Chloride 3 ml 08/03/20 08:00 08/06/20 21:54 0.9 % Sodium Chloride Flush 3 Ml Syringe IVFLUSH 3 ml QSHIFT GAYLA Administration Verapamil HCl 240 mg 08/03/20 17:00 08/06/20 09:52 Verapamil Hcl Sr 240 Mg Tablet.Er PO 240 mg DAILY GAYLA Administration Protocol Zolpidem Tartrate 5 mg 08/03/20 06:40 Zolpidem Tartrate 5 Mg Tablet PO BEDTIME PRN Insomnia <Katie Zavala PA-C - Last Filed: 08/07/20 08:15> Time Spent With Patient Time: Total time spent is greater than 50% in coordination of care (as documented) at patient's floor/unit and/or counseling patient: <Katie Zavala PA-C - Last Filed: 08/07/20 08:15> Time with patient: less than 15 minutes <Katie Zavala PA-C - Last Filed: 08/07/20 08:15>
--- NOTE | 2020-08-07 08:22 | MHC.CM.PN ---
PT DISCHARGING HOME SELF-CARE, SON TO TRANSPORT. PT TOLERATING REGULAR DIET AND HAS HAD BOWEL MOVEMENT PER REPORT.
--- NOTE | 2020-08-07 09:27 | P.DS_ITS ---
DS: Providers Provider Date of admission: 08/03/20 01:50 Primary care physician: Matthew Hirsch MD, DO DS: Diagnosis Discharge Diagnosis (1) Small bowel obstruction: Status: Acute Problem details: Resolved DS: Medications Discharge Medications Home Medications: Home Medications Medication Instructions Recorded Confirmed Allergy Relief (cetirizine) 10 mg PO DAILY 05/23/20 08/03/20 docusate calcium 100 mg PO BID 05/23/20 08/03/20 fluticasone propionate 50 mcg INTRANASAL DAILY 05/23/20 08/03/20 lisinopril 10 mg PO DAILY 05/23/20 08/03/20 omeprazole 40 mg PO DAILY 05/23/20 08/03/20 polyethylene glycol 3350 [Miralax] 17 g PO DAILY 05/23/20 08/03/20 rosuvastatin 20 mg PO DAILY 05/23/20 08/03/20 verapamil 240 mg PO DAILY 05/23/20 08/03/20 DS: Summary Hospital Course Hospital Course: BRIEF HPI:Yoseph Orellana is a 74 year old male patient with a history of esophageal cancer s/p esophagectomy in [place], and a repair of an incisional hernia with mesh (Dr. Jj) and a previous history of small bowel obstruction 6 months ago now presenting with complaints of nausea and vomiting. The sympt oms started at around 18:00 yesterday after eating a blueberry pie. He tried going to bed but the symptoms progressed and he subsequently presented to the emergency department after speaking with his primary care physician. In the emergency department he was found to have abdominal distension and a CT of the abdomen obtained. This revealed dilated loops of small bowel with a transition to decompressed bowel suggestive of a small bowel obstruction. NGT was placed in the ED. HOSPITAL COURSE: He was admitted to the surgical service for management of the SBO. The patient began to improve symptomatically with conservative measures, began to pass flatus and his NGT output decreased. His NGT was clamped and residuals checked, which were low. The NGT was therefore removed and he was started on clear liquids. He continued to feel well and moved his bowels. He was then advanced to a solid diet. He remained asymptomatic and evidence of GI function with a benign abdominal exam. On the day of discharge, he was tolerating a solid diet without N/V or any abdominal pain. His abdomen was soft, nontender and nondistended. He was clinically appearing well and felt ready for discharge. He was discharged to home on 08/07/20 in stable condition. Status at Discharge Functional status at discharge: independent ambulation Overall status at discharge: patient is back to baseline Time Spent with Patient Time attestation: Total time spent providing and/or coordinating discharge services: Physical Exam Vital Signs: Vital Signs: Last Vital Signs Temp 97.3 F 08/07/20 07:59 Pulse 58 08/07/20 07:59 Resp 16 08/07/20 07:59 BP 165/89 H 08/07/20 07:59 Pulse Ox 98 08/07/20 07:59 Body Mass Index 25.9 Const: General: comfortable, no acute distress and alert Orientation/consciousness: patient oriented x3 Eyes: Sclerae: sclerae normal Resp: Effort & Inspection: normal respiratory effort GI: Inspection: No distended Palpation (GI): Soft to palpation and nontender Skin: General skin exam: no rashes or lesions noted Neuro: General: patient oriented x3 DS: Data Data Completed and Pending Labs on day of discharge: 08/03/20 00:15 COVID-19 ID NOW (Richard) Stat 08/03/20 00:25 ECG 12 lead EKG Stat EKG Documentation DIRECTED Morphine Sulfate 4 mg IVPUSH ONCE ONE ondansetron HCL [Zofran] 4 mg IVPUSH ONCE ONE 08/03/20 00:26 XR chest 1V Stat 08/03/20 00:27 CT abdomen pelvis wo con Stat 08/03/20 00:30 0.9 % Sodium Chloride [Ns] 1,000 ml IVCONT 999 mls/hr 08/03/20 01:11 Lactic Acid Stat 08/03/20 01:12 Complete Blood Count Auto Diff Stat 08/03/20 01:13 Basic Metabolic Panel Stat Lipase Stat Liver Panel Stat 08/03/20 01:49 Transfer Order Routine 08/03/20 02:34 NG/OG Tube Insert/Maintain Q8H 08/03/20 03:05 Morphine Sulfate 4 mg IVPUSH ONCE ONE 08/03/20 06:10 Morphine Sulfate 4 mg IVPUSH ONCE ONE 08/03/20 06:40 Dextrose 5 % and Lactated Ring [D5lr] 1,000 ml IVCONT 125 mls/hr 08/03/20 Breakfast NPO Diet 08/04/20 05:38 Basic Metabolic Panel DAILY@0600 Complete Blood Count Auto Diff DAILY@0600 Laboratory Last Values WBC 4.7 X10*3/uL (4.8-10.8) L 08/04/20 05:38 RBC 4.48 X10*6/uL (4.60-5.80) L 08/04/20 05:38 Hgb 13.4 g/dl (14.0-18.0) L 08/04/20 05:38 Hct 41.0 % (42-52) L 08/04/20 05:38 MCV 91.5 fL (80-98) 08/04/20 05:38 MCH 29.9 pg (27.0-33.0) 08/04/20 05:38 MCHC 32.7 g/dl (31.0-36.0) 08/04/20 05:38 RDW 13.2 % (11.0-16.0) 08/04/20 05:38 Plt Count 153 X10*3/uL (160-400) L 08/04/20 05:38 MPV 10.9 fL (9.4-12.4) 08/04/20 05:38 Immature Gran % (Auto) 0.2 % (0.0-0.4) 08/04/20 05:38 Neut % (Auto) 51.5 % (45-73) 08/04/20 05:38 Lymph % (Auto) 25.7 % (20-40) 08/04/20 05:38 Wright % (Auto) 19.2 % (2-11) H 08/04/20 05:38 Eos % (Auto) 3.2 % (0-4) 08/04/20 05:38 Baso % (Auto) 0.2 % (0-2) 08/04/20 05:38 Lymph # (Auto) 1.2 X10*3/uL (1.2-4.9) 08/04/20 05:38 Wright # (Auto) 0.9 X10*3/uL (0.1-1.2) 08/04/20 05:38 Eos # (Auto) 0.2 X10*3/uL (0.0-0.4) 08/04/20 05:38 Baso # (Auto) 0.0 X10*3/uL (0.0-0.2) 08/04/20 05:38 Abs Immat Gran (auto) 0.01 X10*3/uL (0.00-0.03) 08/04/20 05:38 Absolute Neuts (auto) 2.4 X10*3/uL (2.0-8.3) 08/04/20 05:38 Absolute Nucleated RBC 0.000 X10*3/uL (0.0-0.012) 08/04/20 05:38 Nucleated RBC % (auto) 0.0 /100WBC (0.0-0.2) 08/04/20 05:38 Sodium 142 mmol/L (135-145) 08/04/20 05:38 Potassium 4.3 mmol/l (3.3-5.1) 08/04/20 05:38 Chloride 109 mmol/L (96-108) H 08/04/20 05:38 Carbon Dioxide 26 mmol/L (22-29) 08/04/20 05:38 Anion Gap 11 (12-20) L 08/04/20 05:38 BUN 9 mg/dL (9-16) 08/04/20 05:38 Creatinine 0.80 mg/dL (0.5-1.4) 08/04/20 05:38 Estim Creat Clear Calc 73.4 08/04/20 05:38 Estimated GFR > 60 08/04/20 05:38 Random Glucose 117 mg/dL (60-115) H 08/04/20 05:38 Lactic Acid 1.4 mmol/L (0.5-2.0) 08/03/20 01:11 Calcium 8.0 mg/dL (8.4-10.2) L D 08/04/20 05:38 Total Bilirubin 0.3 mg/dL (0.0-1.0) 08/03/20 01:13 Direct Bilirubin 0.2 mg/dL (0.0-0.5) 08/03/20 01:13 AST 17 U/L (5-37) 08/03/20 01:13 ALT 13 U/L (0-40) 08/03/20 01:13 Alkaline Phosphatase 115 U/L (39-117) 08/03/20 01:13 Total Protein 6.8 g/dL (6.5-8.0) 08/03/20 01:13 Albumin 4.0 g/dL (3.5-5.0) 08/03/20 01:13 Lipase 19 U/L (8-78) 08/03/20 01:13 COVID-19 (NUZHAT) Negative (Negative) 08/03/20 00:15 COVID-19 Clin Com See Note 08/03/20 00:15 Preliminary micro results at discharge 08/03/20 01:11 Blood Culture - Preliminary Blood - Venous No growth after 48 hours. 08/03/20 01:11 Blood Culture - Preliminary Blood - Venous No growth after 48 hours. Discharge Plan Discharge Patient Disposition: Home, Self-Care Referrals: Matthew Hirsch MD, DO [Primary Care Provider] - Ulisses Gregory MD [Physician] - (as needed) Discharge Medications: Continued omeprazole 40 mg capsule,delayed release(DR/EC) 40 mg PO DAILY RF: 0 lisinopril 10 mg tablet 10 mg PO DAILY RF: 0 verapamil 240 mg tablet extended release 240 mg PO DAILY RF: 0 polyethylene glycol 3350 [Miralax] 17 gram/dose Powder 17 g PO DAILY RF: 0 fluticasone propionate 50 mcg/actuation spray,suspension 50 mcg INTRANASAL DAILY RF: 0 docusate calcium 50 mg Capsule 100 mg PO BID RF: 0 rosuvastatin 20 mg tablet 20 mg PO DAILY RF: 0 Allergy Relief (cetirizine) 10 mg Capsule 10 mg PO DAILY RF: 0 Discharge Orders: Discharge Order (Routine); Ordered 08/07/20 Ordered By: Katie Zavala Diet: advance to usual diet Activity on Discharge: As tolerated Visit Report Forms: Patient Portal Discharge page Care Plan Goals: Return to baseline activity Health Concerns: SBO Plan of Treatment: Advance diet, discharge to home
[2020-08-07] MEDS: Fluticasone Propionate Nasal 16 GM SPRAY 1 SPRAY NOSTRIL-B (09:29)
[2020-08-07 09:30] VITALS: PULSE 58
[2020-08-07] MEDS: Omeprazole 40 MG CAPSULE.DR PO (09:30)
[2020-08-07 09:31] VITALS: BP 165/89; PULSE 58
[2020-08-07] MEDS: lisinopriL 10 MG TABLET PO (09:31)
[2020-08-07] MEDS: 0.9 % Sodium Chloride Flush 3 ML SYRINGE IVFLUSH (09:32)
[2020-08-07 12:00] VITALS: BP 186/95; PULSE 61; RESP 16; TEMP 36.2; O2SAT 97
== END 2020-08-07 16:20 | disposition home or self-care (01) | DRG 390 ==
LOC: HO.ED 08-03 01:44 → HO.S3 08-03 05:35
PROVIDERS: Admitting Provider Surgery; Emergency Provider Internal Medicine; PCP Internal Medicine; Visit Provider Surgery
DX: K56.609 Unspecified intestinal obstruction, unspecified as to partial versus complete obstruction (principal); Z20.828 Contact with and (suspected) exposure to other viral communicable diseases; Z85.01 Personal history of malignant neoplasm of esophagus; Z79.51 Long term (current) use of inhaled steroids; Z79.899 Other long term (current) drug therapy
CPT/HCPCS: 36415; 71045; 74176; 80048; 80076; 83605; 83690; 85025; 87040; 87635; 93005; 96361; 96374; 96375; 96376; 99285; J2270; J2405

== ENCOUNTER 2020-09-03 08:44 | Outpatient (REF) | payer MEDICARE, SELFPAY ==
[2020-09-03 11:49] LABS: Prostate Specific Antigen < 0.05 ng/mL (<0.05-4.0)
== END 2020-09-03 08:45 | disposition home or self-care (01) ==
LOC: HO.HMGCLDS 08:44
PROVIDERS: PCP Internal Medicine; Visit Provider Physician Assistant Surgical
DX: Z12.5 Encounter for screening for malignant neoplasm of prostate (principal); C61 Malignant neoplasm of prostate
CPT/HCPCS: 36415; 84153

== ENCOUNTER 2020-12-20 08:07 | Outpatient (REF) | payer MEDICARE, SELFPAY ==
[2020-12-20 11:26] LABS: MANUAL DIFF FLAG NO
[2020-12-20 11:40] LABS: Basophils Percent Auto 0.4 % (0-2); Eosinophils Absolute Auto 0.1 X10*3/uL (0.0-0.4); Eosinophils Percent Auto 2.6 % (0-4); Hematocrit 43.5 % (42-52); Hemoglobin 13.9 g/dl (14.0-18.0); Imm Gran Abs Auto 0.01 X10*3/uL (0.00-0.03); Imm Gran Pct Auto 0.2 % (0.0-0.4); Lymphocytes Absolute Auto 1.5 X10*3/uL (1.2-4.9); Lymphocytes Percent Auto 33.2 % (20-40); Mean Corpuscular Hemoglobin 28.6 pg (27.0-33.0); Mean Corpuscular Volume 89.5 fL (80-98); Mean Platelet Volume 11.5 fL (9.4-12.4); Monocytes Absolute Auto 0.5 X10*3/uL (0.1-1.2); Monocytes Percent Auto 11.1 % (2-11); Neutrophils Absolute Auto 2.4 X10*3/uL (2.0-8.3); Neutrophils Percent Auto 52.5 % (45-73); Platelet Count 199 X10*3/uL (160-400); Red Blood Count 4.86 X10*6/uL (4.60-5.80); Red Cell Distribution Width 13.2 % (11.0-16.0); White Blood Count 4.6 X10*3/uL (4.8-10.8)
[2020-12-20 12:15] LABS: Alanine Aminotransferase 16 U/L (0-40); Albumin Level 3.8 g/dL (3.5-5.0); Alkaline Phosphatase 106 U/L (39-117); Anion Gap 11 (12-20); Aspartate Amino Transferase 20 U/L (5-37); Bilirubin Total 0.4 mg/dL (0.0-1.0); Blood Urea Nitrogen 8 mg/dL (9-16); Calcium 9.2 mg/dL (8.4-10.2); Carbon Dioxide 28 mmol/L (22-29); Chloride 108 mmol/L (96-108); Cholesterol 146 mg/dL; Estimated Glomerular Filt Rate > 60; Glucose Fasting 83 mg/dL (60-99); HDL Cholesterol 46 mg/dL; LDL Cholesterol Calculated 74 mg/dl; Potassium 4.4 mmol/L (3.3-5.1); Sodium 143 mmol/L (135-145); Total Protein 6.4 g/dL (6.5-8.0); Triglycerides 133 mg/dL
[2020-12-20 12:24] LABS: Prostate Specific Antigen < 0.05 ng/mL (<0.05-4.0); Thyroid Stimulating Hormone 0.96 uIU/mL (0.32-4.0); Vitamin D 25-OH Total 39.7 ng/mL (>30)
== END 2020-12-20 08:08 | disposition home or self-care (01) ==
LOC: HO.HMGCLDS 08:07
PROVIDERS: PCP Internal Medicine; Visit Provider Internal Medicine
DX: Z12.5 Encounter for screening for malignant neoplasm of prostate (principal); I10 Essential (primary) hypertension; E78.00 Pure hypercholesterolemia, unspecified; Z85.46 Personal history of malignant neoplasm of prostate
CPT/HCPCS: 36415; 80053; 80061; 82306; 84153; 84443; 85025

== ENCOUNTER 2021-01-23 08:46 | Day surgery (SDC) | payer MEDICARE, SELFPAY ==
--- NOTE | 2021-01-22 22:09 | MHC.SHP ---
Pre-Procedural Eval Section A The patient is an INPATIENT: No Changes since office visit: No Cold of Flu in the past 2 weeks, No New Medical Problems, No Changes in Medication and No Patient answered all questions The History & Physical has been completed within 30 days and I have reviewed it.: Yes Section B Chief Complaint: dysphagia Allergies: Allergies Allergy/AdvReac Type Severity Reaction Status Date / Time No Known Allergies Allergy Verified 05/23/20 15:11 [No Known Allergies*] Plan I have reviewed the history and physical and performed a pertinent physical examination on my patient. No changes have occurred unless specified.
[2021-01-23 09:24] VITALS: BP 173/79; PULSE 54; RESP 16; TEMP 36.4; O2SAT 95; BMI 26.1
[2021-01-23] MEDS: Lactated Ringers 1,000 ML 100 ML IVCONT (09:45)
--- NOTE | 2021-01-23 10:44 | HO.ANESPROP2 ---
HPI - Anesthesia Eval Consult details Narrative: 75 yo male patient for EGD PMFSH Active Problems Active Problems: All Active Problems (Updated 09/21/20 @ 13:24 by Isabella Brooks MD) Esophageal adenocarcinoma (Chronic) Small bowel obstruction (Acute) Past Medical History Medical History Basal cell carcinoma, scalp/neck Cervical spondylosis Diverticulosis History of jejunostomy tube placement Hypercholesterolemia Hypertension Melanoma Osteoarthritis Prostate CA Shingles Small bowel obstruction Vitamin B12 deficiency Family History Family history of problems with anesthesia: No Surgical History Surgical History H/O esophagectomy History of appendectomy History of incisional hernia repair History of prostatectomy History of Problems with Anesthesia: No Social History Social History Household Members: Spouse Housing: [facility] Do you presently have visiting nurse or other home services: No Patient Tobacco Use Status: Former Tobacco user Years Smoked: 35 Second Hand Smoke Exposure: No Use of substances other than those prescribed or required for medical reasons: No Are you DNR?: No Advance Directives: No Advance Directives Information Provided: Yes service: Yes Current occupational status: retired Meds Allergies Allergy/AdvReac Type Severity Reaction Status Date / Time No Known Allergies Allergy Verified 05/23/20 15:11 [No Known Allergies*] Active Medications: Current Medications Generic Name Dose Route Start Last Admin Trade Name Freq PRN Reason Stop Dose Admin Lactated Ringer's 1,000 mls @ 100 mls/hr 01/23/21 10:15 01/23/21 09:45 Lr IVCONT 100 mls/hr .Q10H GAYLA Administration Home Medications Medication Instructions Recorded Confirmed Last Taken Type Allergy Relief (cetirizine) 10 mg PO DAILY 05/23/20 08/03/20 Unknown History docusate calcium 100 mg PO BID 05/23/20 08/03/20 Unknown History fluticasone propionate 50 mcg INTRANASAL DAILY 05/23/20 08/03/20 Unknown History lisinopril 10 mg PO DAILY 05/23/20 08/03/20 Unknown History omeprazole 40 mg PO DAILY 05/23/20 08/03/20 Unknown History polyethylene glycol 3350 [Miralax] 17 g PO DAILY 05/23/20 08/03/20 Unknown History rosuvastatin 20 mg PO DAILY 05/23/20 08/03/20 Unknown History verapamil 240 mg PO DAILY 05/23/20 08/03/20 Unknown History Exam Exam Date and Time: January 23, 2021 1044 Height,Weight and Vital Signs: Height 5 ft 8 in Weight 78.018 kg Last Vital Signs Temp 97.6 F 01/23/21 09:24 Pulse 54 01/23/21 09:24 Resp 16 01/23/21 09:24 BP 173/79 H 01/23/21 09:24 Pulse Ox 95 01/23/21 09:24 Airway Mallampati Class: II TM Dist: >3cm Neck ROM: Full Denture: Upper Heart: RRR ? sinus arrhythmia Lungs: CTAB Assessment and Plan Assessment Anesthesia Assessment: Anesthesia Plan Discussed and Chart Reviewed Final Anesthetic Review NPO: Yes ASA Class: II Final Preanesthetic Review: No Changes in Pt Med Stat, Meds/Allgs Chart Reviewed, Consent Obtained/Reviewed and Anes Risks/Benef Reviewed Patient Risk: Intermediate Procedure Risk: Low Assessment/Block/Sedation in SS: Assess/Block/Sedation-SS Anesthetic Plan Anesthetic Plan: MAC: Disposition: Standard PACU
[2021-01-23 11:40] VITALS: BP 95/62; PULSE 75; RESP 16; TEMP 36.2; O2SAT 94
--- NOTE | 2021-01-23 11:41 | P.BOP_ITS ---
Brief Operative Note Date of Service: 01/23/21 Pre-op diagnosis: Dysphagia Post-op diagnosis: other (Normal gastroesophageal anastomosis. Mild gastric retention) Procedure: EGD Surgeon: Matthew Powell Anesthesia: MAC Was an Fuel Storage Technician used for this Procedure?: No Estimated blood loss (mL): 0 Pathology: none sent Condition: stable Disposition: PACU
[2021-01-23 11:55] VITALS: BP 104/53; PULSE 62; RESP 18; O2SAT 97
[2021-01-23 12:04] VITALS: BP 125/71; PULSE 66; RESP 16; O2SAT 96
--- NOTE | 2021-01-25 10:56 | OP_ITS ---
SURGEON: Matthew Powell MD INDICATIONS: The patient presents for evaluation of dysphagia and personal history of esophageal cancer. Full consent has been obtained from him for this, including risks of bleeding and perforation. PREOPERATIVE DIAGNOSIS: POSTOPERATIVE DIAGNOSIS: PROCEDURE PERFORMED: Esophagogastroduodenoscopy. ESTIMATED BLOOD LOSS: COMPLICATIONS: ANESTHESIA: Monitored anesthesia care. ASSISTANTS: SPECIMENS: PREOPERATIVE DIAGNOSES: Dysphagia and history of esophageal cancer. POSTOPERATIVE DIAGNOSES: Dysphagia and history of esophageal cancer, normal anastomosis at 25 cm, mild gastric retention. DESCRIPTION OF PROCEDURE: The patient was placed in the left lateral decubitus position. The Olympus video gastroscope was passed in the posterior oropharynx and upper esophagus under direct vision. The scope was passed to 25 cm, where a normal and very patent anastomosis was noted. There was some slight areas of erythema just above this consistent with some reflux, but there were no areas of esophagitis, ulceration, nor mass. The scope easily passed the anastomosis. There was a small amount of retained food particles in the stomach. The pylorus was patent and allowed easy passage of the scope into the descending duodenum. The duodenum including the bulb appeared normal without mass or ulceration. The scope was withdrawn back into the stomach. The pylorus was at 45 cm. The stomach was insufflated and was well visualized other than the small areas of retained food. I did not visualize any sign of gastritis, ulceration, nor mass. Again, the anastomosis at 25 cm was normal and patent and therefore, no dilation was performed. Proximal to 25 cm, the esophageal mucosa appeared normal other than some areas of slight erythema. The scope was withdrawn from the patient. He tolerated the procedure well and was returned to recovery area in stable condition. IMPRESSION: 1. Normal and patent gastroesophageal anastomosis at 25 cm. 2. Mild gastric retention. PLAN: The patient will continue his daily omeprazole. At this point, I do not think any further workup is required. I suspect the sensation of some early satiety is in relation to the mild gastric retention seen today in relation to his previous surgery. As long as he is doing well, he will see me on a p.r.n. basis. This has been discussed with his . MD GARLAND Knox/JAZZMINEL / [phone]
== END 2021-01-23 12:55 | disposition home or self-care (01) ==
PROVIDERS: PCP Internal Medicine; Visit Provider Internal Medicine
PROC: (CPT 43235; principal; 2021-01-23 10:10)
DX: R13.10 Dysphagia, unspecified (principal); K31.89 Other diseases of stomach and duodenum; Z85.01 Personal history of malignant neoplasm of esophagus; I10 Essential (primary) hypertension; Z79.899 Other long term (current) drug therapy; Z92.3 Personal history of irradiation; Z92.21 Personal history of antineoplastic chemotherapy; Z98.0 Intestinal bypass and anastomosis status
CPT/HCPCS: 43235

== ENCOUNTER 2021-01-30 09:28 | Outpatient (REF) | payer MEDICARE, SELFPAY ==
--- NOTE | ~2021-01-30 | XR_ITS ---
EXAMINATION: XR ANKLE, RIGHT XR FOOT, RIGHT CLINICAL INFORMATION: Fall, trauma, pain COMPARISON: Report right foot radiographs 05/15/2006, images purged. TECHNIQUE: 2 views right ankle, 2 views right foot, and a lateral view of the combined right ankle and foot are obtained for a total of 5 views. FINDINGS: The malleoli are intact and the ankle mortise is symmetric. The talar dome shows no osteochondral lesion. The subtalar joint appears normal. The retrocalcaneal recess is preserved. There is small plantar calcaneal spur. Lateral view shows fine linear ossification at distal dorsal talus which may represent a cortical avulsion of indeterminate age. This may be correlated with patient's symptoms and clinical exam. Otherwise, the midfoot and forefoot show no fracture or dislocation. There is variable joint narrowing of the PIP and DIP joints without erosive changes. XR/XR foot RT min 3V IMPRESSION: 1. No ankle fracture or dislocation. 2. Fine linear ossification at distal dorsal talus. Recommend correlation with clinical exam to exclude acute avulsion. 3. Mild degenerative changes PIP and DIP joints. No erosive change.
--- NOTE | ~2021-01-30 | XR_ITS ---
EXAMINATION: XR ANKLE, RIGHT XR FOOT, RIGHT CLINICAL INFORMATION: Fall, trauma, pain COMPARISON: Report right foot radiographs 05/15/2006, images purged. TECHNIQUE: 2 views right ankle, 2 views right foot, and a lateral view of the combined right ankle and foot are obtained for a total of 5 views. FINDINGS: The malleoli are intact and the ankle mortise is symmetric. The talar dome shows no osteochondral lesion. The subtalar joint appears normal. The retrocalcaneal recess is preserved. There is small plantar calcaneal spur. Lateral view shows fine linear ossification at distal dorsal talus which may represent a cortical avulsion of indeterminate age. This may be correlated with patient's symptoms and clinical exam. Otherwise, the midfoot and forefoot show no fracture or dislocation. There is variable joint narrowing of the PIP and DIP joints without erosive changes. XR/XR ankle RT min 3V IMPRESSION: 1. No ankle fracture or dislocation. 2. Fine linear ossification at distal dorsal talus. Recommend correlation with clinical exam to exclude acute avulsion. 3. Mild degenerative changes PIP and DIP joints. No erosive change.
== END 2021-01-30 09:29 | disposition home or self-care (01) ==
LOC: HO.HMGCX 09:28
PROVIDERS: PCP Internal Medicine; Visit Provider Nurse Practitioner Family
DX: S99.911A Unspecified injury of right ankle, initial encounter (principal); S99.921A Unspecified injury of right foot, initial encounter; M79.89 Other specified soft tissue disorders; W19.XXXA Unspecified fall, initial encounter
CPT/HCPCS: 73610; 73630

== ENCOUNTER → 2021-02-28 08:27 | Outpatient (BNVA) | payer MEDICARE, SELFPAY | PROVIDERS: Visit Provider Physician Assistant | DX: S93.401A Sprain of unspecified ligament of right ankle, initial encounter (principal) | CPT/HCPCS: 99202 ==

== ENCOUNTER 2021-10-10 08:48 | Outpatient (REF) | payer MEDICARE, OTHER, SELFPAY ==
--- NOTE | ~2021-10-10 | CT_ITS ---
EXAMINATION: CT CHEST WITH CONTRAST CLINICAL INFORMATION: Surveillance of malignant neoplasm. COMPARISON: Prior study 02/28/2020. TECHNIQUE: Multidetector volumetric CT imaging of the chest was done. Axial MIP volume rendering provided. Sagittal and coronal reformatted images were obtained. This CT examination was performed using dose optimization techniques as appropriate, variously including the following: *Automated exposure control *Adjustment of mA and/or kV according to patient size (this includes techniques or standardized protocols for targeted exams where dose is matched to indication/reason for exam; i.e. extremities or head) *Use of iterative reconstruction technique CONTRAST: 65 mL of Omnipaque 350. 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 LUNGS: Lung parenchyma: No evidence of significant interstitial disease. Lung nodules/masses: No suspicious nodule or lung mass. There are scattered tiny lung densities measuring 3 mm or less mostly unchanged. AIRWAYS: Trachea and bronchi are normal. PLEURA: No pleural effusion or pneumothorax. MEDIASTINUM AND LIZBETH: No mediastinal, hilar or axillary lymphadenopathy. Postsurgical changes from prior esophageal resection and gastric pull-through. There is heterogeneous irregular soft tissue mass upper mediastinum sandwiched between the right thyroid lobe and right carotid and subclavian anteriorly, esophagus posteriorly and tracheal wall to the left, dorsal spine posteriorly. This mass has newly developed since prior CT scan and concerning for tumor recurrence. It measures about 3.9 x 3.6 cm. about 3.4 cm craniocaudally. The mass is abutting the adjacent carotid, however, not engulfing the vessels yet. VESSELS: HEART AND PERICARDIUM: Thoracic aorta is normal in size. Heart is normal in size. No pericardial effusion. There are coronary calcifications. Pulmonary arteries are normal in size. LOWER NECK, AXILLA: The visualized thyroid gland is unremarkable. No axillary mass or adenopathy. VISUALIZED ABDOMEN: Diffusely hypodense liver suggesting hepatic steatosis, there is subcapsular 1.1 cm hypodense area in the posterior segment right lobe. This has not changed from prior exam, not well characterized on single phase CT scan. CHEST WALL AND BONES: Port-A-Cath remains in place properly positioned. The visualized bony thorax is within normal limits. CT/CT chest w con IMPRESSION: * Newly developed superior mediastinal right paraesophageal mass 3.9 cm, sandwiched between the right thyroid, right carotid, trachea and dorsal spine, highly suspicious for neoplasm. This may be amenable for ultrasound or CT-guided biopsy. * Postsurgical changes from prior esophageal resection and gastric pull-through. * Other findings unchanged including few scattered tiny lung nodules, coronary calcification, hypodense fatty liver, subcentimeter hypodensities in the right lobe nonspecific unchanged. (Referring physician staff is being called, to be alerted of the above findings and recommendations.) CM
[2021-10-10] MEDS: iohexoL 350 MG/ML 75 ML INFUS..BTL 65 ML IV (09:43)
== END 2021-10-10 08:49 | disposition home or self-care (01) ==
LOC: HO.CT 08:48
PROVIDERS: Visit Provider Internal Medicine
DX: C15.9 Malignant neoplasm of esophagus, unspecified (principal)
CPT/HCPCS: 71260; Q9967

== ENCOUNTER 2021-10-22 14:39 | Outpatient (REF) | payer MEDICARE, OTHER, SELFPAY ==
--- NOTE | ~2021-10-22 | US_ITS ---
EXAMINATION: US SOFT TISSUE OF THE NECK CLINICAL INFORMATION: Neck mass. COMPARISON: None TECHNIQUE: Linear transducer grayscale and color Doppler examination of the right medial inferior neck paraclavicular area, posterior/inferior to thyroid, posterior to carotid artery. FINDINGS: Limited imaging through the right anterior neck. The clavicular region reveals a solid heterogeneous area low-lying slightly anterior and superior to the medial clavicle. It measures 3.74 x 3.19 x 1.74 cm. It lies adjacent to the clavicle and may represent a synovial cyst arising from the right sternoclavicular joint. A heterogeneous lymph node is not excluded. No such lesion was seen on the left side. US/US soft tiss head and/or neck IMPRESSION: Heterogeneous solid lesion right lower neck adjacent to the clavicle likely synovial cyst arising from the right AC joint. It is avascular.
== END 2021-10-22 14:40 | disposition home or self-care (01) ==
LOC: HO.US 14:39
PROVIDERS: Visit Provider Internal Medicine
DX: C15.9 Malignant neoplasm of esophagus, unspecified (principal); R22.1 Localized swelling, mass and lump, neck
CPT/HCPCS: 76536

== ENCOUNTER 2021-11-07 10:44 | Outpatient (REF) | payer MEDICARE, OTHER, SELFPAY ==
--- NOTE | ~2021-11-07 | FL_ITS ---
EXAMINATION: FL BARIUM SWALLOW CLINICAL INFORMATION: Esophageal carcinoma, dysphagia. COMPARISON: None. TECHNIQUE: Barium swallow examination is performed using fluoroscopic evaluation in addition to multiple fluoroscopic spot views. The patient is imaged both upright and prone and using both thick and thin sulfate along with effervescent granules. Fluoroscopy time: 3.1 minutes DAP: 4.559 Gycm2 Images: 49 FINDINGS: Following oral administration of thin barium, there is normal propagation of bolus from the oral cavity with a nathanael episode of laryngeal penetration on the second attempt. On oral administration of barium-coated turkey, there is normal propagation of bolus from the oral cavity through the pharynx and esophagus and into the stomach. There is moderate retention of barium in the valleculae and the piriform sinuses. On oral administration of thick barium, there is normal propagation of bolus from the oral cavity through the pharynx and esophagus and into the stomach with no laryngeal penetration or aspiration seen. Patient has gastric pull-through changes of stomach almost in the upper/mid chest area. No extrinsic compression or intrinsic abnormality seen. FL/FL barium swallow IMPRESSION: Nathanael laryngeal aspiration on thin barium. This was not visualized with thick barium and barium-coated turkey. Recommend modified barium swallow with speech therapy for further evaluation.
== END 2021-11-07 10:45 | disposition home or self-care (01) ==
LOC: HO.XRAY 10:44
PROVIDERS: Visit Provider Internal Medicine
DX: C15.9 Malignant neoplasm of esophagus, unspecified (principal); R13.10 Dysphagia, unspecified
CPT/HCPCS: 74220

== ENCOUNTER 2021-11-12 09:43 | Outpatient (REF) | payer MEDICARE, OTHER, SELFPAY ==
--- NOTE | ~2021-11-12 | PE_ITS ---
EXAMINATION: Fluorine-18 FDG PET/CT Scan CLINICAL INDICATION: Subsequent treatment management. Esophageal cancer, restaging. PROCEDURE: 60 minutes following the intravenous administration of 17.9 mCi of fluorine 18 FDG, images from the base of the skull to the mid thighs were obtained using a combined PET/CT scanner with CT scan based attenuation correction. No oral contrast was administered. No intravenous contrast was administered. Transverse, coronal, sagittal, and volume reconstruction projections were obtained. The patient's blood glucose as determined by a finger stick, was 88 mg/dl immediately prior to injection. Total CT exam dose-length product 423.51 mGy-cm * These CT images were obtained using dose optimization techniques as appropriate, variously including the following: Automated exposure control * Adjustment of mA and/or kV according to patient size (this includes techniques or standardized protocols for targeted exams where dose is matched to indication/reason for exam; i.e. extremities or head) * Use of iterative reconstruction technique COMPARISON: The previous PET CT scan dated 12/23/2018 is available for comparison. CT scans of the chest dated 10/10/2021 and 02/28/2020, and CT scan of the abdomen and pelvis dated 08/03/2020 are also available for comparison. FINDINGS: (Slice numbers described in this report are numbered superiorly to inferiorly with slice #1 in the head) NECK AND VISUALIZED HEAD: There is a mildly FDG avid soft tissue mass that arises from or abuts the posterior aspect of the, lower pole of the right thyroid lobe SUVmax 4.4, slice 60/267. On the CT images this measures approximately 3.8 x 3.0 cm in largest transverse dimensions and approximately 3.7 cm cephalocaudad. It abuts and slightly indents the adjacent right posterolateral aspect of the trachea and posteriorly abuts the prevertebral musculature at the T1 level. It also abuts or possibly arises from the adjacent right side of the upper esophagus. This is unchanged in appearance from 10/10/2021 CT scan but was not present on the prior 10/23/2018 PET/CT scan, or the more recent prior CT scan dated 02/28/2020. No other foci of abnormal FDG activity are present in the neck or visualized head. There is no cervical lymphadenopathy. THORAX: Postsurgical changes from a prior Nic-Grover procedure are noted, also unchanged from 10/10/2021 but not present on the prior 10/23/2018 PET/CT scan. There is no associated abnormal FDG activity with a pull-through. There is a 0.6 cm nodule in the lateral aspect of the left interlobar fissure, likely a fissural lymph node and unchanged from both the 12/23/2018 PET/CT scan and the more recent 10/10/2021 CT scan. This is too small to characterize on the FDG PET images. No other nodules are visualized. There is no pleural or pericardial fluid, or pneumothorax. There is no mediastinal, supraclavicular, or axillary lymphadenopathy. A right-sided chest port with internal jugular catheter terminating in the superior vena cava is noted. ABDOMEN AND PELVIS: Postsurgical changes including multiple metallic clips in the anterior abdominal wall are noted. There is no associated abnormal FDG activity. Metallic sutures and clips likely from prior anastomosis are noted in loops of small bowel in the right upper quadrant. These are new since the CT scan of the abdomen and pelvis dated 08/03/2020 and in addition a small bowel obstruction present at that time is resolved. There is mild FDG activity throughout the gastrointestinal tract but no suspicious focal component is present. There is diverticulosis without evidence of diverticulitis. The hollow viscera are otherwise unremarkable. The liver, gallbladder, and spleen are unremarkable. The kidneys, adrenal glands, and pancreas are unremarkable. There is no retroperitoneal, mesenteric, pelvic or inguinal lymphadenopathy. A very small fat-containing periumbilical hernia is present. The prostate gland has been resected and there are multiple metallic surgical clips in the prostate bed. The pelvic organs are otherwise unremarkable. MUSCULOSKELETAL: There is a small focus of minimally increased FDG activity in the right side of the lower sternum with sclerotic degenerative changes present at this site on the CT images and this is likely degenerative or posttraumatic in etiology. There are no other foci of abnormal FDG activity in the osseous structures. There are degenerative changes in the spine, most severely in the mid and lower thoracic spine. There are no suspicious sclerotic or lytic lesions visualized. VASCULAR: Diffuse vascular calcifications including coronary are noted. PET/PET CT fusion skull to thigh IMPRESSION: 1. The previously visualized mass abutting the lower pole the right thyroid lobe is mildly FDG avid. This is strongly suspicious for a malignant lesion, particularly because of its relatively short-term development since 02/28/2020. This is probably not of thyroid origin, as thyroid masses are usually more slow growing than these scans indicate. This mass should be amenable to ultrasound-guided fine-needle aspirate. 2. Postsurgical changes in the esophagus, abdomen and from prostatectomy are noted as described above. None of these is associated with abnormal FDG activity to suggest recurrent malignancy. 3. A small mild focus of increased FDG activity in the lower sternum is likely degenerative or posttraumatic in etiology. 4. No additional abnormalities suspicious for metastatic or other malignant lesions are noted. 5. Diffuse vascular calcifications including coronary.
== END 2021-11-12 09:44 | disposition home or self-care (01) ==
LOC: HO.PET 09:43
PROVIDERS: PCP Internal Medicine; Visit Provider Internal Medicine
DX: Z13.89 Encounter for screening for other disorder (principal)

== ENCOUNTER 2021-11-20 10:35 | Outpatient (REF) | payer MEDICARE, OTHER, SELFPAY ==
--- NOTE | ~2021-11-20 | US_ITS ---
EXAMINATION: US SOFT TISSUE OF THE NECK CLINICAL INFORMATION: Neck mass, right. COMPARISON: Ultrasound soft tissue of the neck 10/22/2021. Head CT November 2021. Chest CT October 2021 TECHNIQUE: Linear transducer grayscale and color Doppler examination of the right neck, supraclavicular/low neck. FINDINGS: There is a heterogeneous hypoechoic area posterior to the inferior right lobe of the thyroid gland and carotid and jugular vessels and subclavian vessels probably corresponding to the abnormal soft tissue in the right superior mediastinum seen on chest CT. This measures approximately 3.4 x 2.9 x 2.8 cm. This appears vascular. Due to the overlying of bone/right clavicular head and vessels, adequate percutaneous access could not be obtained and biopsy was not attempted. US/US soft tiss head and/or neck IMPRESSION: 3.4 x 2.9 x 2.8 cm hypoechoic heterogeneous soft tissue likely corresponding to abnormal soft tissue in the right superior mediastinum. Ultrasound-guided percutaneous fine needle aspiration was not attempted.
== END 2021-11-20 10:36 | disposition home or self-care (01) ==
LOC: HO.US 10:35
PROVIDERS: Visit Provider Internal Medicine
DX: R22.1 Localized swelling, mass and lump, neck (principal)
CPT/HCPCS: 76536

== ENCOUNTER 2021-11-26 21:11 | Inpatient (IN) | payer MEDICARE, OTHER, SELFPAY ==
--- NOTE | ~2021-11-26 | CT_ITS ---
EXAMINATION: CT ABDOMEN AND PELVIS WITH CONTRAST CLINICAL INFORMATION: Abdominal pain,nausea,hx gastroesophageal for ca, ?sbo COMPARISON: PET/CT 11/12/2021, CT abdomen pelvis 08/03/2020 TECHNIQUE: Multidetector volumetric images were obtained from the superior aspect of the liver through the pubic symphysis following administration 85 mL of Omnipaque 350 intravenous contrast. Sagittal and coronal reformatted images were obtained on the technologist's workstation. Oral contrast: No This CT examination was performed using dose optimization techniques as appropriate, variously including the following: *Automated exposure control *Adjustment of mA and/or kV according to patient size (this includes techniques or standardized protocols for targeted exams where dose is matched to indication/reason for exam; i.e. extremities or head) *Use of iterative reconstruction technique DLP: 537 mGy-cm FINDINGS: LUNG BASES: Some basilar scarring is present along with some traction bronchiectasis. LIVER, GALLBLADDER, AND BILIARY TREE: The liver is normal in size, shape, and attenuation. At least 3 tiny subcentimeter hypodensities are seen consistent with cysts. No worrisome solid focal hepatic lesion or biliary ductal dilatation is present. The gallbladder is unremarkable with no evidence of radiopaque gallstones, gallbladder wall thickening, or obvious pericholecystic inflammatory changes. PANCREAS: Unremarkable. SPLEEN: Unremarkable. ADRENAL GLANDS: Unremarkable. KIDNEYS AND URETERS: The kidneys are normal in size, shape, and attenuation. Some left-sided benign Bosniak class I parapelvic cysts are present. No suspicious solid renal masses are present. No hydronephrosis, hydroureter, or calculi seen. No perinephric stranding. BLADDER: Unremarkable. GASTROINTESTINAL TRACT: There has been a esophagectomy (partially visualized) with a gastric pull-through procedure with most of the stomach in the chest. There is small bowel obstruction present. Dilatation of the duodenum and proximal jejunum with decompression of the distal small bowel. A transition point appears to be present in the left mid abdomen (4:263 and 5:29). The colon is decompressed. Scattered colonic diverticula are present without diverticulitis. The appendix is not seen but there is no evidence of appendicitis. ABDOMINAL WALL: No significant hernia is appreciated. LYMPH NODES: No retroperitoneal lymphadenopathy. VASCULAR: Calcific atherosclerotic changes present in the aorta and iliofemoral vessels PELVIC VISCERA: Patient appears to be status post prostatectomy. OSSEOUS STRUCTURES: Unremarkable. Mild degenerative changes are present but no bony destructive lesions are seen CT/CT abdomen pelvis w con IMPRESSION: 1. Small bowel obstruction with transition point in the left midabdomen most likely secondary to stricture/adhesions. 2. Status post esophagectomy with gastric pull-through. 3. Other incidental findings as described above. Fleischner guidelines were followed.
--- NOTE | ~2021-11-26 | CT_ITS ---
PROCEDURE: CT FLUOROSCOPIC-GUIDED BIOPSY OF RIGHT ANTERIOR MEDIASTINAL MASS CLINICAL INFORMATION: Right anterior mediastinal mass in patient with history of melanoma and esophageal carcinoma. COMPARISON: 11/12/2021 and 10/10/2021. TECHNIQUE: CT fluoroscopic-guided fine-needle aspiration biopsy and core biopsy of anterior mediastinal mass. This CT examination was performed using dose optimization techniques as appropriate, variously including the following: *Automated exposure control *Adjustment of mA and/or kV according to patient size (this includes techniques or standardized protocols for targeted exams where dose is matched to indication/reason for exam; i.e. extremities or head) *Use of iterative reconstruction technique DLP: 106 mGy-cm FINDINGS: Informed consent was obtained from the patient prior to the procedure. During this process, the procedure and potential alternatives were explained, along with the intended outcome and benefits. The risks of the procedure, as well as the risk of not doing the procedure, were discussed. The patient was given the opportunity to ask questions regarding the procedure and appeared competent to make medical decisions. A signed consent form which documents this discussion was placed in the medical record. Using sterile technique and CT fluoroscopic guidance a 19-gauge guiding needle was directed along the right lateral aspect of the right thyroid gland just medial to the jugular vein and right carotid artery. A 20-gauge fine-needle aspiration biopsy was performed followed by two 20-gauge core biopsies. Preliminary cytologic result was of an adequate specimen. The patient tolerated the procedure without difficulty. CT/CT biopsy lung RT IMPRESSION: Successful right anterior mediastinal mass biopsy as described.
--- NOTE | ~2021-11-26 | FL_ITS ---
EXAMINATION: FL SMALL BOWEL SERIES CLINICAL INFORMATION: Small bowel obstruction COMPARISON: Previous CT of the abdomen and pelvis 11/26/2021 TECHNIQUE: Following a digital media sales consultant image of the abdomen, contrast was administered orally, and interval abdominal radiographs were performed to assess for contrast progression through the small bowel. Imaging was carried out up to 7 hours. FINDINGS: Credit Risk Specialist image of the abdomen demonstrates dilated loops of small bowel. There is evidence of previous ventral hernia repair. There are surgical clips in the pelvis. There are postsurgical changes from esophagectomy and gastric pull-up. There are dilated contrast filled loops of proximal small bowel. There is a caliber change with normal caliber distal small bowel. There is oral contrast seen in the nondilated distal small bowel and colon by 2 hours and 45 minutes. Appearance is suggestive of a partial proximal small bowel obstruction. Note there is retained oral contrast in the gastric pull-up that persists on the latest up to 7 hour images. FL/FL small bowel follow through IMPRESSION: Partial proximal small bowel obstruction. There is retained oral contrast in the gastric pull-up up to 7 hours. The patient should be kept upright to prevent aspiration.
--- NOTE | ~2021-11-26 | CT_ITS ---
PROCEDURE: CT FLUOROSCOPIC-GUIDED BIOPSY OF RIGHT ANTERIOR MEDIASTINAL MASS CLINICAL INFORMATION: Right anterior mediastinal mass in patient with history of melanoma and esophageal carcinoma. COMPARISON: 11/12/2021 and 10/10/2021. TECHNIQUE: CT fluoroscopic-guided fine-needle aspiration biopsy and core biopsy of anterior mediastinal mass. This CT examination was performed using dose optimization techniques as appropriate, variously including the following: *Automated exposure control *Adjustment of mA and/or kV according to patient size (this includes techniques or standardized protocols for targeted exams where dose is matched to indication/reason for exam; i.e. extremities or head) *Use of iterative reconstruction technique DLP: 106 mGy-cm FINDINGS: Informed consent was obtained from the patient prior to the procedure. During this process, the procedure and potential alternatives were explained, along with the intended outcome and benefits. The risks of the procedure, as well as the risk of not doing the procedure, were discussed. The patient was given the opportunity to ask questions regarding the procedure and appeared competent to make medical decisions. A signed consent form which documents this discussion was placed in the medical record. Using sterile technique and CT fluoroscopic guidance a 19-gauge guiding needle was directed along the right lateral aspect of the right thyroid gland just medial to the jugular vein and right carotid artery. A 20-gauge fine-needle aspiration biopsy was performed followed by two 20-gauge core biopsies. Preliminary cytologic result was of an adequate specimen. The patient tolerated the procedure without difficulty. CT/CT guided FNA IMPRESSION: Successful right anterior mediastinal mass biopsy as described.
--- NOTE | 2021-11-26 21:28 | ED.ABDPAIN ---
HPI - Abdominal Pain General Chief Complaint: Abdominal Pain Stated Complaint: CONSTIPATED Time Seen by Provider: 11/26/21 21:15 Source: patient Mode of arrival: EMS History of Present Illness HPI narrative: 76-year-old male presents via EMS with 2 days of worsening abdominal discomfort and decreasing flatus production with minimal to no stool involvement, mild nausea with small amount of bilious vomiting and patient reports and but of chills with diaphoresis just prior to arrival. Patient has a significant past medical history esophageal cancer with a gastroesophageal surgery and has had bowel obstruction previously. Patient also now reports that he has had identification of a mass again in his neck just posterior to the thyroid that is currently under investigation for biopsy and he reports that it has affected both his voice and his ability to swallow thin liquids. Related Data Home Medications Medication Instructions Recorded Confirmed cetirizine 10 mg capsule (Allergy 10 mg PO DAILY 05/23/20 09/27/21 Relief (cetirizine)) fluticasone propionate 50 50 mcg INTRANASAL DAILY 05/23/20 09/27/21 mcg/actuation nasal spray,suspension lisinopril 10 mg tablet 10 mg PO DAILY 05/23/20 09/27/21 omeprazole 40 mg capsule,delayed 40 mg PO DAILY 05/23/20 09/27/21 release polyethylene glycol 3350 17 17 g PO DAILY 05/23/20 09/27/21 gram/dose oral powder (Miralax) rosuvastatin 20 mg tablet 20 mg PO DAILY 05/23/20 09/27/21 Allergies Allergy/AdvReac Type Severity Reaction Status Date / Time No Known Allergies Allergy Verified 11/26/21 21:29 [No Known Allergies*] Review of Systems Review of Systems Pertinent positives and negatives as stated in HPI 10 point review of systems is otherwise negative. FORMERLY [facility], [facility] Past Medical History Source: nursing notes reviewed Medical History (Updated 11/26/21 @ 23:47 by Valerie Easton MD) Basal cell carcinoma, scalp/neck Cervical spondylosis Constipation Diverticulosis (~1998) Esophageal adenocarcinoma (~2017) GERD (gastroesophageal reflux disease) History of prostate cancer (~2004) History of small bowel obstruction (~2019) Hypercholesterolemia Hypertension Melanoma Osteoarthritis Personal history of nicotine dependence Shingles Throat mass Vitamin B12 deficiency Surgical History History of appendectomy History of colonoscopy History of esophagectomy (~2018) History of esophagogastroduodenoscopy (EGD) History of hemorrhoidectomy (~1993) History of incisional hernia repair (~2019) History of jejunostomy tube placement (~2018) History of meniscectomy of right knee (~2003) History of prostatectomy (~2004) Family History Family History Son Non-Hodgkin lymphoma Father Prostate cancer Mother No problems noted. Social History Social History Household Members: Spouse Housing: Condominium Are you a primary hospice care consultant to a significant other at home: No Do you presently have visiting nurse or other home services: No Alcohol intake: former Patient Tobacco Use Status: Former Tobacco user Years Smoked: 35 Second Hand Smoke Exposure: No Use of substances other than those prescribed or required for medical reasons: No Advance Directives: No Advance Directives Information Provided: No service: Yes Current occupational status: retired Current occupation: rt handed Physical Exam ED Vital Signs: Vital Signs - 24 hr 11/26/21 21:29 11/26/21 21:40 11/26/21 21:52 Temperature 98.2 F 98.2 F Pulse Rate 64 72 Respiratory Rate 18 18 18 Blood Pressure 136/76 136/76 Pulse Oximetry 96 95 11/26/21 22:15 11/26/21 23:41 Temperature Pulse Rate 63 68 Respiratory Rate 16 Blood Pressure 118/76 Pulse Oximetry 96 BMI result Body Mass Index 24.0 VITAL SIGNS: Reviewed. GENERAL: Well developed, well nourished, in no acute distress. HEAD: Normocephalic/atraumatic EYES: PERRLA, EOMI EARS: Ext canals without abnormality OROPHARYNX: no oral lesions noted, posterior pharynx clear LUNGS: Normal breath sounds. No adventitious sounds or accessory muscle use. CARDIOVASCULAR: Regular rate and rhythm without noted murmurs ABDOMEN: Soft, abdominal tenderness primarily in the left upper quadrant into left lower quadrant without rebound, non-distended with hypoactive bowel sounds. MUSCULOSKELETAL: No tenderness, deformities, or effusions noted on gross inspection. EXTREMITIES: No cyanosis, clubbing or edema. SKIN: Inspection of the skin reveals no rashes NEUROLOGIC: Alert and oriented x 4. Strength and sensation to light touch were grossly intact x 4. Course Course Course Narrative: 76-year-old male with history and clinical presentation most consistent with SBO and low clinical suspicion for perforation at this time. Patient is hemodynamically stable and will be reluctant to blindly placed nasogastric to given patient's recent diagnosis of throat mass with difficulties swallowing. Review of all investigations consistent with small-bowel obstruction, patient has received antibiotics, IV fluids, as well as pain medication. I discussed the case with general surgeon who accepts admission. MDM - Abdominal Pain Lab Data Result diagrams: 11/26/21 21:58 11/26/21 21:58 Labs: Lab Results 11/26/21 11/26/21 11/26/21 Range/Units 21:58 21:58 21:58 WBC 11.7 H (4.8-10.8) X10*3/uL RBC 5.82 H (4.60-5.80) X10*6/uL Hgb 16.6 (14.0-18.0) g/dl Hct 50.5 (42.0-52.0) % MCV 86.8 (80.0-98.0) fL MCH 28.5 (27.0-33.0) pg MCHC 32.9 (31.0-36.0) g/dl RDW 13.2 (11.0-16.0) % Plt Count 232 (160-400) X10*3/uL MPV 10.9 (9.4-12.4) fL Immature Gran % (Auto) 0.3 (0.0-0.4) % Neut % (Auto) 74.8 H (45-73) % Lymph % (Auto) 15.6 L (20-40) % [place] % (Auto) 8.4 (2-11) % Eos % (Auto) 0.6 (0-4) % Baso % (Auto) 0.3 (0-2) % Lymph # (Auto) 1.8 (1.2-4.9) X10*3/uL [place] # (Auto) 1.0 (0.1-1.2) X10*3/uL Eos # (Auto) 0.1 (0.0-0.4) X10*3/uL Baso # (Auto) 0.0 (0.0-0.2) X10*3/uL Abs Immat Gran (auto) 0.03 (0.00-0.03) X10*3/uL Absolute Neuts (auto) 8.8 H (2.0-8.3) x10*3/uL Absolute Nucleated RBC 0.000 (0.0-0.012) X10*3/uL Nucleated RBC % (auto) 0.0 (0.0-0.2) /100WBC PT 11.5 (9.9-13.0) SEC INR 1.0 (0.9-1.1) Sodium 141 (135-145) mmol/L Potassium 4.9 (3.3-5.1) mmol/L Chloride 102 (96-108) mmol/L Carbon Dioxide 27 (22-29) mmol/L Anion Gap 17 (12-20) BUN 14 (9-16) mg/dL Creatinine 1.09 (0.5-1.4) mg/dL Estim Creat Clear Calc 54.0 Estimated GFR > 60 Random Glucose 103 D (60-115) mg/dL Lactic Acid (0.5-2.0) mmol/L Calcium 9.9 (8.4-10.2) mg/dL Total Bilirubin 0.7 (0.0-1.0) mg/dL AST 23 (5-37) U/L ALT 17 (0-40) U/L Alkaline Phosphatase 102 (39-117) U/L Total Protein 7.3 (6.5-8.0) g/dL Albumin 4.1 (3.5-5.0) g/dL COVID-19 (NUZHAT) (Negative) COVID-19 Clin Com Influenza Type A (SHAILA) (Negative) Influenza Type B (SHAILA) (Negative) Influenza A & B Note 11/26/21 11/26/21 11/26/21 Range/Units 21:58 21:58 21:58 WBC (4.8-10.8) X10*3/uL RBC (4.60-5.80) X10*6/uL Hgb (14.0-18.0) g/dl Hct (42.0-52.0) % MCV (80.0-98.0) fL MCH (27.0-33.0) pg MCHC (31.0-36.0) g/dl RDW (11.0-16.0) % Plt Count (160-400) X10*3/uL MPV (9.4-12.4) fL Immature Gran % (Auto) (0.0-0.4) % Neut % (Auto) (45-73) % Lymph % (Auto) (20-40) % [place] % (Auto) (2-11) % Eos % (Auto) (0-4) % Baso % (Auto) (0-2) % Lymph # (Auto) (1.2-4.9) X10*3/uL [place] # (Auto) (0.1-1.2) X10*3/uL Eos # (Auto) (0.0-0.4) X10*3/uL Baso # (Auto) (0.0-0.2) X10*3/uL Abs Immat Gran (auto) (0.00-0.03) X10*3/uL Absolute Neuts (auto) (2.0-8.3) x10*3/uL Absolute Nucleated RBC (0.0-0.012) X10*3/uL Nucleated RBC % (auto) (0.0-0.2) /100WBC PT (9.9-13.0) SEC INR (0.9-1.1) Sodium (135-145) mmol/L Potassium (3.3-5.1) mmol/L Chloride (96-108) mmol/L Carbon Dioxide (22-29) mmol/L Anion Gap (12-20) BUN (9-16) mg/dL Creatinine (0.5-1.4) mg/dL Estim Creat Clear Calc Estimated GFR Random Glucose (60-115) mg/dL Lactic Acid 2.8 H* (0.5-2.0) mmol/L Calcium (8.4-10.2) mg/dL Total Bilirubin (0.0-1.0) mg/dL AST (5-37) U/L ALT (0-40) U/L Alkaline Phosphatase (39-117) U/L Total Protein (6.5-8.0) g/dL Albumin (3.5-5.0) g/dL COVID-19 (NUZHAT) Negative (Negative) COVID-19 Clin Com See Note Influenza Type A (SHAILA) Negative (Negative) Influenza Type B (SHAILA) Negative (Negative) Influenza A & B Note See Note ECG Data Attestation: I personally reviewed and interpreted this ECG as follows: Prior ECG tracings: available for review Interpretation: NSR, HR-84, RBBB, no STEMI, W[place]/QTC are within normal limits. Critical Care Time Critical Care Time Critical Care Time: Yes Total Critical Care Time: 30 Attestation: I personally attest to this time spent taking care of the patient. Discharge Plan Discharge Clinical Impression: SBO (small bowel obstruction), Mass of right side of neck Patient Disposition: Admitted As Inpatient
[2021-11-26 21:29] VITALS: BP 118/67; BP 136/76; PULSE 64; PULSE 65; RESP 18; TEMP 36.8; O2SAT 96; BMI 24.0
--- NOTE | 2021-11-26 21:30 | ECG_ITS ---
Test Reason : CONSTIPATION Blood Pressure : / mmHG Vent. Rate : 084 BPM Atrial Rate : 084 BPM P-R Int : 140 ms QRS Dur : 126 ms QT Int : 398 ms P-R-T Axes : 034 -48 034 degrees QTc Int : 470 ms Normal sinus rhythm Right bundle branch block Left anterior fascicular block Bifascicular block Abnormal ECG When compared with ECG of 03-AUG-2020 00:52, Nonspecific T wave abnormality has replaced inverted T waves in Inferior leads Referred By: Valerie Easton Electronically Signed By:MIKHAIL OLGUIN MD
[2021-11-26 21:40] VITALS: BP 136/76; PULSE 72; RESP 18; TEMP 36.8; O2SAT 95
[2021-11-26 21:52] VITALS: RESP 18
[2021-11-26] MEDS: fentaNYL citrate/PF 100 MCG/2 ML VIAL 25 MCG IVPUSH (21:52)
[2021-11-26] MEDS: ondansetron HCL 4 MG/2 ML VIAL IVPUSH (21:52)
--- NOTE | 2021-11-26 22:02 | PC.NURSE ---
pt a&ox3, vss, abd pain/nausea/constipation for 2d, hx of similar episode. labs drawn (1st set of cultures), 20G IV placed left forearm, 20G right hand placed by EMS. medicated per provider order. CT scan pending.
[2021-11-26 22:15] VITALS: PULSE 63
[2021-11-26 22:15] LABS: MANUAL DIFF FLAG NO
[2021-11-26 22:16] LABS: Basophils Percent Auto 0.3 % (0-2); Eosinophils Absolute Auto 0.1 X10*3/uL (0.0-0.4); Eosinophils Percent Auto 0.6 % (0-4); Hematocrit 50.5 % (42.0-52.0); Hemoglobin 16.6 g/dl (14.0-18.0); Imm Gran Abs Auto 0.03 X10*3/uL (0.00-0.03); Imm Gran Pct Auto 0.3 % (0.0-0.4); Lymphocytes Absolute Auto 1.8 X10*3/uL (1.2-4.9); Lymphocytes Percent Auto 15.6 % (20-40); Mean Corpuscular HGB Conc 32.9 g/dl (31.0-36.0); Mean Corpuscular Hemoglobin 28.5 pg (27.0-33.0); Mean Corpuscular Volume 86.8 fL (80.0-98.0); Mean Platelet Volume 10.9 fL (9.4-12.4); Monocytes Percent Auto 8.4 % (2-11); Neutrophils Absolute Auto 8.8 x10*3/uL (2.0-8.3); Neutrophils Percent Auto 74.8 % (45-73); Platelet Count 232 X10*3/uL (160-400); Red Blood Count 5.82 X10*6/uL (4.60-5.80); Red Cell Distribution Width 13.2 % (11.0-16.0); White Blood Count 11.7 X10*3/uL (4.8-10.8)
[2021-11-26 22:30] LABS: Alanine Aminotransferase 17 U/L (0-40); Albumin Level 4.1 g/dL (3.5-5.0); Alkaline Phosphatase 102 U/L (39-117); Anion Gap 17 (12-20); Aspartate Amino Transferase 23 U/L (5-37); Bilirubin Total 0.7 mg/dL (0.0-1.0); Blood Urea Nitrogen 14 mg/dL (9-16); Calcium 9.9 mg/dL (8.4-10.2); Carbon Dioxide 27 mmol/L (22-29); Chloride 102 mmol/L (96-108); Estimated Glomerular Filt Rate > 60; Glucose Random 103 mg/dL (60-115); Potassium 4.9 mmol/L (3.3-5.1); Sodium 141 mmol/L (135-145); Total Protein 7.3 g/dL (6.5-8.0)
[2021-11-26 22:31] LABS: Lactic Acid 2.8 mmol/L (0.5-2.0)
--- NOTE | 2021-11-26 22:37 | PC.NURSE ---
door operator applied - NSR. pt continues to c/o intermittent nausea and pain.
[2021-11-26 22:38] LABS: Prothrombin Time 11.5 SEC (9.9-13.0)
[2021-11-26] MEDS: iohexoL 350 MG/ML 100 ML INFUS..BTL IV (22:53)
[2021-11-26 22:57] LABS: COVID-19 Test Negative (Negative); IDNOW Serial# 16C4AD1C; Influenza A Negative (Negative); Influenza B2 Negative (Negative)
[2021-11-26] MEDS: Piperacillin Sodium/Tazobactam 3.375 GM in 0.9 % Sodium Chloride 50 ML IV (23:40)
[2021-11-26] MEDS: 0.9 % Sodium Chloride 1,000 ML 999 ML IV (23:40)
[2021-11-26 23:41] VITALS: BP 118/76; PULSE 68; RESP 16; O2SAT 96
[2021-11-27] VITALS (7 sets, daily range): BP systolic 109–139; BP diastolic 61–79; PULSE 64–95; RESP 17–20; TEMP 36–36.7; O2SAT 94–97
[2021-11-27 00:13] LABS: Reflex Lactate? Lactic Acid Added
[2021-11-27 01:01] LABS: ~Lactic Acid-LAB USE ONLY 1.8 mmol/L (0.5-2.0)
[2021-11-27] MEDS: 0.9 % Sodium Chloride 1,000 ML 100 ML IVCONT ×3 (01:14→20:58)
--- NOTE | 2021-11-27 01:21 | PC.NURSE ---
I assumed nursing care of Yoseph at 2300. Since that time he has been alert, oriented x 3, xcalm and cooperative, speech clear and appropriate, resting in bed - sleeping, wakes to verbal stimuli. Respirations non-labored. Room air sat's WNL. Skin pale/warm/dry. Yoseph is aware that his CT shows an SBO and is aware that at this time the decision has been made not to place an NGTube due to recent finding of a mass in the vicinity of his thyroid gland. He states he came to the ED with severe abdominal pain but, since the administration of Fentanyl shortly after arrival, his pain has decreased significantly to a 1-2/10. He does not feel the azam for additional pain medicines a this time but has been educated about the call mina and will notify me if his pain increases. Yoseph is TBADM and he verbalizes an understanding of this. We will continue to monitor Yoseph.
[2021-11-27] MEDS: ondansetron HCL 4 MG/2 ML VIAL IVPUSH ×3 (01:59→18:17)
[2021-11-27] MEDS: Morphine Sulfate 4 MG/ML CARTRIDGE IVPUSH ×3 (01:59→23:25)
[2021-11-27 05:32] LABS: MANUAL DIFF FLAG NO
[2021-11-27 05:43] LABS: Basophils Percent Auto 0.1 % (0-2); Eosinophils Percent Auto 0.3 % (0-4); Hematocrit 40.6 % (42.0-52.0); Hemoglobin 13.5 g/dl (14.0-18.0); Imm Gran Abs Auto 0.02 X10*3/uL (0.00-0.03); Imm Gran Pct Auto 0.3 % (0.0-0.4); Lymphocytes Absolute Auto 1.1 X10*3/uL (1.2-4.9); Lymphocytes Percent Auto 15.1 % (20-40); Mean Corpuscular HGB Conc 33.3 g/dl (31.0-36.0); Mean Corpuscular Hemoglobin 28.8 pg (27.0-33.0); Mean Corpuscular Volume 86.6 fL (80.0-98.0); Mean Platelet Volume 11.2 fL (9.4-12.4); Monocytes Absolute Auto 0.6 X10*3/uL (0.1-1.2); Monocytes Percent Auto 7.9 % (2-11); Neutrophils Absolute Auto 5.6 x10*3/uL (2.0-8.3); Neutrophils Percent Auto 76.3 % (45-73); Platelet Count 185 X10*3/uL (160-400); Red Blood Count 4.69 X10*6/uL (4.60-5.80); Red Cell Distribution Width 13.3 % (11.0-16.0); White Blood Count 7.3 X10*3/uL (4.8-10.8)
[2021-11-27 06:27] LABS: Anion Gap 12 (12-20); Blood Urea Nitrogen 12 mg/dL (9-16); Calcium 8.7 mg/dL (8.4-10.2); Carbon Dioxide 24 mmol/L (22-29); Chloride 106 mmol/L (96-108); Creatinine Clr Calc Pharmacy 64.7; Estimated Glomerular Filt Rate > 60; Glucose Random 110 mg/dL (60-115); Potassium 4.1 mmol/L (3.3-5.1); Sodium 138 mmol/L (135-145)
--- NOTE | 2021-11-27 08:14 | PHA.MEDREC ---
Pharmacy Consult ? Medication Reconciliation Pharmacy has completed the medication reconciliation.
--- NOTE | 2021-11-27 10:20 | MHC.CM.PN ---
met with pt who lives with his pt had no services prior to admission and does not anticapate needing servceis when dcd pt isvax x3 pts son will transport home
--- NOTE | 2021-11-27 11:09 | P.HPGS_ITS ---
History of Present Illness History of Present Illness Date of Service: 11/27/21 Chief complaint: SBO Narrative: Yoseph Orellana is a 76 year old male who had a distal esophagectomy with gastric pullthrough in 2019 at [facility] and has done well. he also had a j-tube placed at the time. He also has a history of prostate cancer and was operated remotely in the past for that. He has done well but has had a few episodes of SBO that have resolved with conservative care. He presented to [facility] yesterday with complaints of nausea dn vomiting and abdo pain similar to his SBO. In the past he has had ng decompression and ivf and bowel rest. he recently has been having some issues with dysphagia and swallow study shows aspiration wioth thin liquids does ok with thicker substances. Mass found behind thyroid and he needs to have that biopsied. Review of Systems Review of Systems: Yes all other systems are reviewed and are negative [facility] Past Medical History Medical History (Updated 11/26/21 @ 23:47 by Valerie Easton MD) Basal cell carcinoma, scalp/neck Cervical spondylosis Constipation Diverticulosis (~1998) Esophageal adenocarcinoma (~2017) GERD (gastroesophageal reflux disease) History of prostate cancer (~2004) History of small bowel obstruction (~2019) Hypercholesterolemia Hypertension Melanoma Osteoarthritis Personal history of nicotine dependence Shingles Throat mass Vitamin B12 deficiency Family History Family History Son Non-Hodgkin lymphoma Father Prostate cancer Mother No problems noted. Surgical History Surgical History History of appendectomy History of colonoscopy History of esophagectomy (~2018) History of esophagogastroduodenoscopy (EGD) History of hemorrhoidectomy (~1993) History of incisional hernia repair (~2019) History of jejunostomy tube placement (~2018) History of meniscectomy of right knee (~2003) History of prostatectomy (~2004) Social History Social History Household Members: Spouse Housing: Condominium Are you a primary critical care specialist to a significant other at home: No Do you presently have visiting nurse or other home services: No Alcohol intake: former Patient Tobacco Use Status: Former Tobacco user Years Smoked: 35 Second Hand Smoke Exposure: No Use of substances other than those prescribed or required for medical reasons: No Currently Displaying Signs/Symptoms of Drug Intoxication Withdrawal: No Have you been hit, kicked, punched, or otherwise hurt by someone within the past year? If so, by whom?: No Do you feel safe in your current relationship?: Yes Is there a partner from a previous relationship who is making you feel unsafe now?: No Advance Directives: No Advance Directives Information Provided: No Do you have thoughts of harming others: None Do you have a plan to hurt others: No Plan Recently lost weight without trying: Yes How much weight loss: 2-13 pounds Eating poorly because of decreased appetite: Yes Nutrition screen score: 4 Nutrition Risks: Difficulty swallowing Poor oral hygiene: No service: Yes Current occupational status: retired Current occupation: rt [employer] Allergies Allergy/AdvReac Type Severity Reaction Status Date / Time No Known Allergies Allergy Verified 11/26/21 21:29 [No Known Allergies*] Active Medications: Current Medications Sodium Chloride (Ns) 1,000 mls @ 100 mls/hr IVCONT .Q10H [facility] Last Admin: 11/27/21 01:14 Dose: 100 mls/hr Documented by: Metoclopramide HCl (Metoclopramide Hcl 10 Mg/2 Ml Vial) 10 mg IVPUSH Q6H PRN PRN Reason: Nausea Morphine Sulfate (Morphine Sulfate 4 Mg/Ml Cartridge) 4 mg IVPUSH Q4H PRN; Protocol PRN Reason: Pain, Severe (Pain Scale 7-10) Last Admin: 11/27/21 06:45 Dose: 4 mg Documented by: Ondansetron HCl (Ondansetron Hcl 4 Mg/2 Ml Vial) 4 mg IVPUSH Q8H PRN PRN Reason: Nausea and Vomiting Last Admin: 11/27/21 09:43 Dose: 4 mg Documented by: Sodium Chloride (0.9 % Sodium Chloride Flush 3 Ml Syringe) [address] [facility] Last Admin: 11/27/21 08:11 Dose: Not Given Documented by: Home Medications Medication Instructions Recorded Confirmed Last Taken Type cetirizine 10 mg capsule (Allergy 10 mg PO DAILY 05/23/20 11/27/21 11/26/21 History Relief (cetirizine)) fluticasone propionate 50 50 mcg INTRANASAL DAILY 05/23/20 11/27/21 11/26/21 History mcg/actuation nasal spray,suspension omeprazole 40 mg capsule,delayed 40 mg PO BID@0630,1630 05/23/20 11/27/21 11/26/21 History release polyethylene glycol 3350 17 17 g PO BEDTIME 05/23/20 11/27/21 11/26/21 History gram/dose oral powder (Miralax) rosuvastatin 20 mg tablet 20 mg PO BEDTIME 05/23/20 11/27/21 11/26/21 History hydrochlorothiazide 12.5 mg tablet 1 tab PO DAILY 11/27/21 11/27/21 11/26/21 History lisinopril 20 mg tablet 1 tab PO DAILY 11/27/21 11/27/21 11/26/21 History multivitamin 5 ml PO DAILY 11/27/21 11/27/21 Unknown History verapamil 240 mg 24 hr 1 cap PO DAILY 11/27/21 11/27/21 11/26/21 History capsule,extended release Physical Exam Vital Signs: Vital Signs: Last Vital Signs Temp 97 F 11/27/21 11:00 Pulse 94 11/27/21 11:00 Resp 20 11/27/21 11:00 BP 119/79 11/27/21 11:00 Pulse Ox 96 11/27/21 11:00 BMI result Body Mass Index 24.0 Const: General: cooperative, healthy appearing and acute distress (m) mild Nutritional Appearance: average body habitus Orientation/consciousness: oriented to person, oriented to place and oriented to time Eyes: General: appearance normal, both eyes and all related structures Resp: Effort & Inspection: normal respiratory effort and able to speak in complete sentences Auscultation: clear to auscultation bilaterally Cardio: Rate: regular rate Rhythm: regular rhythm GI: Other: soift nondistended mild tenderness left mid abdomen no guarding or rebound or peritoneal signs good active bowel sounds Skin: General skin exam: no rashes or lesions noted and no jaundice Neuro: General: oriented to person, oriented to place and oriented to time Extrem: General: Yes normal to inspection Psych: Appearance: grossly normal Mental Status: mental status grossly normal Speech and movement: Normal speech and movement present Affect: normal affect Results Results Labs: Short CBC 11/26/21 11/27/21 Range/Units 21:58 05:04 WBC 11.7 H 7.3 (4.8-10.8) X10*3/uL Hgb 16.6 13.5 L (14.0-18.0) g/dl Hct 50.5 40.6 L (42.0-52.0) % Plt Count 232 185 (160-400) X10*3/uL BMP 11/26/21 11/27/21 21:58 05:04 Sodium 141 138 Potassium 4.9 4.1 Chloride 102 106 Carbon Dioxide 27 24 BUN 14 12 Creatinine 1.09 0.91 Calcium 9.9 8.7 D Liver Function 11/26/21 Range/Units 21:58 Total Bilirubin 0.7 (0.0-1.0) mg/dL AST 23 (5-37) U/L ALT 17 (0-40) U/L Alkaline Phosphatase 102 (39-117) U/L Albumin 4.1 (3.5-5.0) g/dL Abdomen CT scan report/results: report reviewed and image reviewed CT scan - pelvis: report reviewed and image reviewed Assessment and Plan (1) SBO (small bowel obstruction): Status: Acute Plan 76 year old male with small bowel obstruction probably due to adhesions from previous surgeries - doing ok for now- complicated history with esophageal cancer and has had these episodes before and recovered conservatively. plan - npo and ivf and nausea meds - dry heaves no vomitus - due to increased dysphagia more cocnern with ngtube but we will see if he improves without need but if still symptomatic will try to place one. right now good bowel sounds and i want him to ambulate and move and less narcotic pain meds once this resovles he can proceed with neck mass bx. he understands and agrees with plan. abdo xr tomorrow. Quality Stroke Does the patient have a stroke diagnosis?: No VTE Prior VTE?: No VTE Risk Level:: Surgical - moderate VTE Device Contraindication: N/A - Device Ordered VTE Drug Contraindication: N/A - Med Ordered Procedures Date of Service Date of Service: 11/27/21
[2021-11-27] MEDS: Pantoprazole Sodium 40 MG/10 ML VIAL IVPUSH (12:36)
[2021-11-27] MEDS: 0.9 % Sodium Chloride Flush 3 ML SYRINGE IVFLUSH (23:25)
[2021-11-28] VITALS (10 sets, daily range): BP systolic 107–143; BP diastolic 62–76; PULSE 88–95; RESP 16–20; TEMP 36.3–37.3; O2SAT 90–94
[2021-11-28] MEDS: Pantoprazole Sodium 40 MG/10 ML VIAL IVPUSH (05:42)
[2021-11-28] MEDS: 0.9 % Sodium Chloride 1,000 ML 100 ML IVCONT ×2 (05:44→17:11)
[2021-11-28] MEDS: 0.9 % Sodium Chloride Flush 3 ML SYRINGE IVFLUSH (07:36)
--- NOTE | 2021-11-28 08:36 | P.PNGS_ITS ---
Subjective Subjective Date of Service: 11/28/21 <Katie Zavala PA-C - Last Filed: 11/28/21 08:43> 11/28/21 <Mylene Magallanes MD - Last Filed: 11/28/21 17:30> Interval history: Feels so, so . Pain is somewhat improved overall but continues to have crampy pains in upper abdomen, mostly left side. When the pain becomes severe (without medication), he becomes nauseous. Otherwise, he denies nausea. He has passed some flatus but not much and does endorse two small bowel movements. <Katie Zavala PA-C - Last Filed: 11/28/21 08:43> Physical Exam Vital Signs: Vital Signs: Last Vital Signs Temp 97.3 F 11/28/21 07:23 Pulse 94 11/28/21 07:23 Resp 20 11/28/21 07:23 BP 132/76 11/28/21 07:23 Pulse Ox 90 L 11/28/21 07:23 BMI result Body Mass Index 24.0 <Katie Zavala PA-C - Last Filed: 11/28/21 08:43> Const: General: comfortable, no acute distress and alert <TIMI Garcia Last Filed: 11/28/21 08:43> Orientation/consciousness: patient oriented x3 <TIMI Garcia Last Filed: 11/28/21 08:43> Resp: Effort & Inspection: normal respiratory effort <Katie Zavala PA-C - Last Filed: 11/28/21 08:43> GI: Inspection: No distended <TIMI Garcia Last Filed: 11/28/21 08:43> Palpation (GI): Soft to palpation, Tenderness to palpation present (GI) (upper abdomen, L>R) Negative for with no rebound tenderness, no guarding and not rigid <TIMI Garcia Last Filed: 11/28/21 08:43> Percussion: Yes normal to percussion <TIMI Garcia Last Filed: 11/28/21 08:43> Skin: General skin exam: no rashes or lesions noted <Katie Zavala PA-C - Last Filed: 11/28/21 08:43> Neuro: General: patient oriented x3 <Katie Zavala PA-C - Last Filed: 11/28/21 08:43> Extrem: General: Yes no clubbing, cyanosis or edema <Katie Zavala PA-C - Last Filed: 11/28/21 08:43> Objective Data Active Medications Sodium Chloride (Ns) 1,000 mls @ 100 mls/hr IVCONT .Q10H [facility] Last Admin: 11/28/21 05:44 Dose: 100 mls/hr Documented by: ROHAN Acetaminophen (Ofirmev) 1,000 mg in 100 mls @ 400 mls/hr IV Q6H PRN PRN Reason: Pain, Severe (Pain Scale 7-10) Stop: 11/28/21 19:59 Last Infusion: 11/28/21 07:58 Dose: 0 mls/hr Documented by: NARINDER Metoclopramide HCl (Metoclopramide Hcl 10 Mg/2 Ml Vial) 10 mg IVPUSH Q6H PRN PRN Reason: Nausea Morphine Sulfate (Morphine Sulfate 4 Mg/Ml Cartridge) 4 mg IVPUSH Q4H PRN; Protocol PRN Reason: Pain, Severe (Pain Scale 7-10) Last Admin: 11/27/21 23:25 Dose: 4 mg Documented by: ROHAN Ondansetron HCl (Ondansetron Hcl 4 Mg/2 Ml Vial) 4 mg IVPUSH Q8H PRN PRN Reason: Nausea and Vomiting Last Admin: 11/27/21 18:17 Dose: 4 mg Documented by: ANGELES Pantoprazole Sodium (Pantoprazole Sodium 40 Mg/10 Ml Vial) 40 mg IVPUSH DAILY@0630 [facility] Last Admin: 11/28/21 05:42 Dose: 40 mg Documented by: ROHAN Sodium Chloride (0.9 % Sodium Chloride Flush 3 Ml Syringe) 3 ml IVFLUSH QSHIFT [facility] Last Admin: 11/28/21 07:36 Dose: 3 ml Documented by: NARINDER <TIMI Garcia Last Filed: 11/28/21 08:43> Labs CBC & Chem 7: : 11/27/21 05:04 11/27/21 05:04 <Katie Zavala PA-C - Last Filed: 11/28/21 08:43> Microbiology Microbiology Results: Microbiology 11/26/21 23:27 Blood Culture - Preliminary Blood - Venous No growth after 24 hours. 11/26/21 22:01 Blood Culture - Preliminary Blood - Venous No growth after 24 hours. <TIMI Garcia Last Filed: 11/28/21 08:43> Procedures Date of Service Date of Service: 11/28/21 <TIMI Garcia Last Filed: 11/28/21 08:43> Progress Note: A&P Assessment and plan (1) Mass of right side of neck: Status: Acute <TIMI Garcia Last Filed: 11/28/21 08:43> (2) SBO (small bowel obstruction): Status: Acute <TIMI Garcia Last Filed: 11/28/21 08:43> Plan 76 year old male with hx of esophageal CA and subsequent distal esophagectomy and gastric pull through admitted for treatment of SBO. No significant improvement in pain however he does have some GI function. He does remain tender in the upper abdomen, specifically the left side but no peritoneal signs and he is nondistended. Will continue conservative management for now with NPO status, IVF. He was encouraged to ambulate at least 4x/day. F/u AXR tomorrow, consider SB series if no significant improvement in the next couple days. Patient comfortable with plan. Mass of right neck- undergoing w/u- US guided biopsy unable to be performed. Awaiting CT guided biopsy today. <TIMI Garcia Last Filed: 11/28/21 08:43> 76 year old male with hx of esophageal CA and subsequent distal esophagectomy and gastric pull through admitted for treatment of SBO. No significant improvement in pain however he does have some GI function. He does remain tender in the upper abdomen, specifically the left side but no peritoneal signs and he is nondistended. Will continue conservative management for now with NPO status, IVF. He was encouraged to ambulate at least 4x/day. F/u AXR tomorrow, consider SB series if no significant improvement in the next couple days. Patient comfortable with plan. Mass of right neck- undergoing w/u- US guided biopsy unable to be performed. Awaiting CT guided biopsy today. AGree with above. pt doing clinically better with sbo. had bx and path pending. slow progression of diet if xrays look good - clinical exam improved and BM and flatus. <Mylene Magallanes MD - Last Filed: 11/28/21 17:30> Fall Risk Details Current Medications: Current Medications Sodium Chloride (Ns) 1,000 mls @ 100 mls/hr IVCONT .Q10H [facility] Last Admin: 11/28/21 05:44 Dose: 100 mls/hr Documented by: Acetaminophen (Ofirmev) 1,000 mg in 100 mls @ 400 mls/hr IV Q6H PRN PRN Reason: Pain, Severe (Pain Scale 7-10) Stop: 11/28/21 19:59 Last Infusion: 11/28/21 07:58 Dose: Infused Documented by: Metoclopramide HCl (Metoclopramide Hcl 10 Mg/2 Ml Vial) 10 mg IVPUSH Q6H PRN PRN Reason: Nausea Morphine Sulfate (Morphine Sulfate 4 Mg/Ml Cartridge) 4 mg IVPUSH Q4H PRN; Protocol PRN Reason: Pain, Severe (Pain Scale 7-10) Last Admin: 11/27/21 23:25 Dose: 4 mg Documented by: Ondansetron HCl (Ondansetron Hcl 4 Mg/2 Ml Vial) 4 mg IVPUSH Q8H PRN PRN Reason: Nausea and Vomiting Last Admin: 11/27/21 18:17 Dose: 4 mg Documented by: Pantoprazole Sodium (Pantoprazole Sodium 40 Mg/10 Ml Vial) 40 mg IVPUSH DAILY@0630 [facility] Last Admin: 11/28/21 05:42 Dose: 40 mg Documented by: Sodium Chloride (0.9 % Sodium Chloride Flush 3 Ml Syringe) 3 ml IVFLUSH QSHIFT [facility] Last Admin: 11/28/21 07:36 Dose: 3 ml Documented by: <Katie Zavala PA-C - Last Filed: 11/28/21 08:43> Time Spent With Patient Time: Total time spent is greater than 50% in coordination of care (as documented) at patient's floor/unit and/or counseling patient: <Katie Zavala PA-C - Last Filed: 11/28/21 08:43> Quality Stroke Does the patient have a stroke diagnosis?: No <Katie Zavala PA-C - Last Filed: 11/28/21 08:43> VTE Prior VTE?: No <Katie Zavala PA-C - Last Filed: 11/28/21 08:43> VTE Risk Level:: Surgical - moderate <Katie Zavala PA-C - Last Filed: 11/28/21 08:43> VTE Device Contraindication: N/A - Device Ordered <Katie Zavala PA-C - Last Filed: 11/28/21 08:43> VTE Drug Contraindication: N/A - Med Ordered <Katie Zavala PA-C - Last Filed: 11/28/21 08:43>
[2021-11-28] MEDS: Morphine Sulfate 4 MG/ML CARTRIDGE IVPUSH (11:51)
[2021-11-28] MEDS: ondansetron HCL 4 MG/2 ML VIAL IVPUSH (11:51)
--- NOTE | 2021-11-28 14:55 | MHC.CM.PN ---
nurse home health care case manager note electronic medicAL RECORD REVIEWED ALONG WITH CASE DISCUSSED WITH STAFF NURSE AND PHYSICIAN , MET WITH PATIENT STILL HAVING ABD PAIN CAN BE SEVERE AND WHEN THIS HAPPENS HE FEELS NAUSEA . ADMITTED PER DOCUMENTAITON FOR SMALL BOWLE OBSTRUCTION ,PASSING FLATUS BUT NO STOOL YET. CONTINUES WITH IV HYDRPOMORPHINE , IV IV ONDAANSTERON AMINOPHLYM, METOCLOPRAMIDE AND MORPHINE SULFATE) DISCHARGE PLAN INITIIALLY HOME NO SERVICES , CASE MANGER TO CONTINUE TO FOLLOW FOR DISCHAGRE NEEDS HAS BEEN INDEPENDENT , LIVES WITH NO VNA NO DME SERVCIES ANS HAS TRANSPORTATION HOME
--- NOTE | 2021-11-28 17:57 | PC.NURSE ---
Pt down for CT guided biopsy, upon return has bandaid to right clavicle area. D/I. Denies pain. Pt seen by Dr Fulton. Popsiakhil given per MD order. Tolerating well
[2021-11-29] VITALS (7 sets, daily range): BP systolic 115–151; BP diastolic 60–78; PULSE 64–100; RESP 15–18; TEMP 36.2–37.3; O2SAT 92–96
[2021-11-29] MEDS: Morphine Sulfate 4 MG/ML CARTRIDGE IVPUSH (01:42)
[2021-11-29] MEDS: ondansetron HCL 4 MG/2 ML VIAL IVPUSH (01:42)
[2021-11-29] MEDS: 0.9 % Sodium Chloride 1,000 ML 100 ML IVCONT ×2 (01:42→16:01)
[2021-11-29] MEDS: Pantoprazole Sodium 40 MG/10 ML VIAL IVPUSH (05:45)
--- NOTE | 2021-11-29 08:02 | P.PNGS_ITS ---
Subjective Subjective Date of Service: 11/29/21 <Katie Zavala PA-C - Last Filed: 11/29/21 08:06> 11/29/21 <Ulisses Gregory MD - Last Filed: 11/29/21 16:17> Interval history: Feels much better this morning. Began to flatus and pass liquid stools early this morning. Pain resolved following this. Does not feel bloated anymore. Wants to eat and go home. <Katie Zavala PA-C - Last Filed: 11/29/21 08:06> Physical Exam Vital Signs: Vital Signs: Last Vital Signs Temp 97.2 F 11/29/21 04:00 Pulse 71 11/29/21 04:00 Resp 17 11/29/21 04:00 BP 126/67 11/29/21 04:00 Pulse Ox 94 11/29/21 04:00 BMI result Body Mass Index 24.0 <Katie Zavala PA-C - Last Filed: 11/29/21 08:06> Const: General: comfortable, no acute distress and alert <Katie Zavala PA-C - Last Filed: 11/29/21 08:06> Orientation/consciousness: patient oriented x3 <TIMI Garcia Last Filed: 11/29/21 08:06> Resp: Effort & Inspection: normal respiratory effort <Katie Zavala PA-C - Last Filed: 11/29/21 08:06> GI: Inspection: No distended <Katie Zavala PA-C - Last Filed: 11/29/21 08:06> Palpation (GI): Soft to palpation, Tenderness to palpation present (GI) (mild upper abdominal), no guarding and not rigid <Katie Zavala PA-C - Last Filed: 11/29/21 08:06> Percussion: Yes normal to percussion <TIMI Garcia Last Filed: 11/29/21 08:06> Skin: General skin exam: no rashes or lesions noted <TIMI Garcia Last Filed: 11/29/21 08:06> Neuro: General: patient oriented x3 <Katie Zavala PA-C - Last Filed: 11/29/21 08:06> Objective Data Active Medications Sodium Chloride (Ns) 1,000 mls @ 100 mls/hr IVCONT .Q10H [facility] Last Admin: 11/29/21 01:42 Dose: 100 mls/hr Documented by: SHARLENE Acetaminophen (Ofirmev) 1,000 mg in 100 mls @ 400 mls/hr IV Q6H PRN PRN Reason: Pain, Severe (Pain Scale 7-10) Stop: 11/29/21 09:29 Last Infusion: 11/28/21 22:40 Dose: 0 mls/hr Documented by: SHARLENE Metoclopramide HCl (Metoclopramide Hcl 10 Mg/2 Ml Vial) 10 mg IVPUSH Q6H PRN PRN Reason: Nausea Morphine Sulfate (Morphine Sulfate 4 Mg/Ml Cartridge) 4 mg IVPUSH Q4H PRN; Protocol PRN Reason: Pain, Severe (Pain Scale 7-10) Last Admin: 11/29/21 01:42 Dose: 4 mg Documented by: SHARLENE Ondansetron HCl (Ondansetron Hcl 4 Mg/2 Ml Vial) 4 mg IVPUSH Q8H PRN PRN Reason: Nausea and Vomiting Last Admin: 11/29/21 01:42 Dose: 4 mg Documented by: SHARLENE Pantoprazole Sodium (Pantoprazole Sodium 40 Mg/10 Ml Vial) 40 mg IVPUSH DA CHARLY@0630 [facility] Last Admin: 11/29/21 05:45 Dose: 40 mg Documented by: SHARLENE Sodium Chloride (0.9 % Sodium Chloride Flush 3 Ml Syringe) 3 ml IVFLUSH QSHIFT [facility] Last Admin: 11/28/21 20:31 Dose: Not Given Documented by: SHARLENE Non-Admin Reason: IV Running <Katie Zavala PA-C - Last Filed: 11/29/21 08:06> Labs CBC & Chem 7: : 11/27/21 05:04 11/27/21 05:04 <Katie Zavala PA-C - Last Filed: 11/29/21 08:06> Microbiology Microbiology Results: Microbiology 11/26/21 23:27 Blood Culture - Preliminary Blood - Venous No growth after 48 hours. 11/26/21 22:01 Blood Culture - Preliminary Blood - Venous No growth after 48 hours. <Katie Zavala PA-C - Last Filed: 11/29/21 08:06> Procedures Date of Service Date of Service: 11/29/21 <Katie Zavala PA-C - Last Filed: 11/29/21 08:06> Progress Note: A&P Assessment and plan (1) Mass of right side of neck: Status: Acute <Katie Zavala PA-C - Last Filed: 11/29/21 08:06> (2) SBO (small bowel obstruction): Status: Acute <Katie Zavala PA-C - Last Filed: 11/29/21 08:06> Plan 76 year old male with hx of esophageal CA and subsequent distal esophagectomy and gastric pull through admitted for treatment of SBO. SBO appears to be resolving. Resolution of pain and now with good GI function. Abd- soft, ND, mild tenderness of upper abd- markedly improved. Will advance to clear liquids and then further as tolerated. Continued to encourage ambulation. Patient comfortable with plan. Home when tolerating solid diet. CT guided biopsy of right anterior mediastinal mass performed yesterday. F/u with PCP regarding results. <Katie Zavala PA-C - Last Filed: 11/29/21 08:06> 76 year old male with hx of esophageal CA and subsequent distal esophagectomy and gastric pull through admitted for treatment of SBO. SBO appears to be resolving. Resolution of pain and now with good GI function. Abd- soft, ND, mild tenderness of upper abd- markedly improved. Will advance to clear liquids and then further as tolerated. Continued to encourage ambulation. Patient comfortable with plan. Home when tolerating solid diet. CT guided biopsy of right anterior mediastinal mass performed yesterday. F/u with PCP regarding results. Patient seen this afternoon after starting liquids. Noted increased bloating therefore stopped the liquids. Will continue to monitor. <Ulisses Gregory MD - Last Filed: 11/29/21 16:17> Fall Risk Details Current Medications: Current Medications Sodium Chloride (Ns) 1,000 mls @ 100 mls/hr IVCONT .Q10H [facility] Last Admin: 11/29/21 01:42 Dose: 100 mls/hr Documented by: Acetaminophen (Ofirmev) 1,000 mg in 100 mls @ 400 mls/hr IV Q6H PRN PRN Reason: Pain, Severe (Pain Scale 7-10) Stop: 11/29/21 09:29 Last Infusion: 11/28/21 22:40 Dose: Infused Documented by: Metoclopramide HCl (Metoclopramide Hcl 10 Mg/2 Ml Vial) 10 mg IVPUSH Q6H PRN PRN Reason: Nausea Morphine Sulfate (Morphine Sulfate 4 Mg/Ml Cartridge) 4 mg IVPUSH Q4H PRN; Protocol PRN Reason: Pain, Severe (Pain Scale 7-10) Last Admin: 11/29/21 01:42 Dose: 4 mg Documented by: Ondansetron HCl (Ondansetron Hcl 4 Mg/2 Ml Vial) 4 mg IVPUSH Q8H PRN PRN Reason: Nausea and Vomiting Last Admin: 11/29/21 01:42 Dose: 4 mg Documented by: Pantoprazole Sodium (Pantoprazole Sodium 40 Mg/10 Ml Vial) 40 mg IVPUSH DAILY@0630 [facility] Last Admin: 11/29/21 05:45 Dose: 40 mg Documented by: Sodium Chloride (0.9 % Sodium Chloride Flush 3 Ml Syringe) [facility] Last Admin: 11/28/21 20:31 Dose: Not Given Documented by: <Katie Zavala PA-C - Last Filed: 11/29/21 08:06> Time Spent With Patient Time: Total time spent is greater than 50% in coordination of care (as documented) at patient's floor/unit and/or counseling patient: <Katie Zavala PA-C - Last Filed: 11/29/21 08:06> Quality Stroke Does the patient have a stroke diagnosis?: No <Katie Zavala PA-C - Last Filed: 11/29/21 08:06> VTE Prior VTE?: No <Katie Zavala PA-C - Last Filed: 11/29/21 08:06> VTE Risk Level:: Surgical - moderate <TIMI Garcia Last Filed: 11/29/21 08:06> VTE Device Contraindication: N/A - Device Ordered <Katie Zavala PA-C - Last Filed: 11/29/21 08:06> VTE Drug Contraindication: N/A - Med Ordered <Katie Zavala PA-C - Last Filed: 11/29/21 08:06>
[2021-11-30 03:18] VITALS: BP 115/61; PULSE 60; RESP 18; TEMP 36.6; O2SAT 95
[2021-11-30] MEDS: Pantoprazole Sodium 40 MG/10 ML VIAL IVPUSH (06:04)
[2021-11-30] MEDS: 0.9 % Sodium Chloride Flush 3 ML SYRINGE IVFLUSH ×2 (07:46→15:12)
[2021-11-30 07:54] VITALS: BP 134/69; PULSE 60; RESP 20; TEMP 36.2; O2SAT 94
[2021-11-30] MEDS: ondansetron HCL 4 MG/2 ML VIAL IVPUSH (09:39)
[2021-11-30] MEDS: Metoclopramide HCl 10 MG/2 ML VIAL IVPUSH ×3 (11:08→23:16)
[2021-11-30 11:14] VITALS: BP 142/71; PULSE 67; RESP 17; TEMP 36.3; O2SAT 96
[2021-11-30 15:09] VITALS: BP 144/70; PULSE 72; RESP 18; TEMP 36.8; O2SAT 96
[2021-11-30] MEDS: 0.9 % Sodium Chloride 1,000 ML 100 ML IVCONT ×2 (15:10→23:18)
--- NOTE | 2021-11-30 15:11 | PM.PNGS ---
Subjective Subjective Date of Service: 11/30/21 Interval history: pt feeling abdominal cramping passing more gas and stool. feeling a little full with contrast that he drank Physical Exam Vital Signs: Vital Signs: Last Vital Signs Temp 98.3 F 11/30/21 15:09 Pulse 72 11/30/21 15:09 Resp 18 11/30/21 15:09 BP 144/70 H 11/30/21 15:09 Pulse Ox 96 11/30/21 15:09 BMI result Body Mass Index 24.0 Const: General: cooperative, healthy appearing and awake; No acute distress Resp: Effort & Inspection: normal respiratory effort Cardio: Rate: regular rate Rhythm: regular rhythm GI: Other: abdo soft nontender active bowel sounds nondistended Skin: General skin exam: no rashes or lesions noted Objective Data Active Medications Acetaminophen (Ofirmev) 1,000 mg in 100 mls @ 400 mls/hr IV Q6H [facility] Last Admin: 11/30/21 14:37 Dose: 400 mls/hr Documented by: NARINDER Metoclopramide HCl (Metoclopramide Hcl 10 Mg/2 Ml Vial) 10 mg IVPUSH Q6H PRN PRN Reason: Nausea Last Admin: 11/30/21 11:08 Dose: 10 mg Documented by: NARINDER Morphine Sulfate (Morphine Sulfate 4 Mg/Ml Cartridge) 4 mg IVPUSH Q4H PRN; Protocol PRN Reason: Pain, Severe (Pain Scale 7-10) Last Admin: 11/29/21 01:42 Dose: 4 mg Documented by: SHARLENE Ondansetron HCl (Ondansetron Hcl 4 Mg/2 Ml Vial) 4 mg IVPUSH Q8H PRN PRN Reason: Nausea and Vomiting Last Admin: 11/30/21 09:39 Dose: 4 mg Documented by: NARINDER Pantoprazole Sodium (Pantoprazole Sodium 40 Mg/10 Ml Vial) 40 mg IVPUSH DAILY@0630 [facility] Last Admin: 11/30/21 06:04 Dose: 40 mg Documented by: SHARLENE Sodium Chloride (0.9 % Sodium Chloride Flush 3 Ml Syringe) 3 ml IVFLUSH QSHIFT [facility] Last Admin: 11/30/21 07:46 Dose: 3 ml Documented by: NARINDER Labs CBC & Chem 7: 11/27/21 05:04 11/27/21 05:04 Procedures Date of Service Date of Service: 11/30/21 Progress Note: A&P Assessment and plan (1) SBO (small bowel obstruction): Status: Acute Assessment and Plan: pt with partial sbo due to probable adhesions from previous surgeries.- yesterday slow to progress on iquids despite having flatus and stools so gastrograffin sb protocol done earlier today - initial films showing slow transit but later films showing contrast in colon but with longer time. clinically this is consistent with his partial obstruction. pt also with some dysphagia and having aspiration with thin liquids - he had distal esophagectomy with gastric pullthough some stomach is a conduit in his chest. now pt having liquid diarrhea and passing more gas - i believe secondary to the gastrograffin moving through his system. ng tube placement attempted by me 3 times and coiling in the back of his throat and once mayb in resp tract so decided to stop. pt did throw up a bit in process of getting int in. At this time i think the risk of aspiration is worse with ng attempts so will just keep him sitting upright and go from there. axr - at 16:00 and tomorrow am i think it will show some resolution of the partial obstruction pt also had bx of neck lesion which preliminary is worrisome for metastatic cancer - final path pending pt has been very cooperative and understands and agrees with this plan Fall Risk Details Current Medications: Current Medications Acetaminophen (Ofirmev) 1,000 mg in 100 mls @ 400 mls/hr IV Q6H [facility] Last Admin: 11/30/21 14:37 Dose: 400 mls/hr Documented by: Metoclopramide HCl (Metoclopramide Hcl 10 Mg/2 Ml Vial) 10 mg IVPUSH Q6H PRN PRN Reason: Nausea Last Admin: 11/30/21 11:08 Dose: 10 mg Documented by: Morphine Sulfate (Morphine Sulfate 4 Mg/Ml Cartridge) 4 mg IVPUSH Q4H PRN; Protocol PRN Reason: Pain, Severe (Pain Scale 7-10) Last Admin: 11/29/21 01:42 Dose: 4 mg Documented by: Ondansetron HCl (Ondansetron Hcl 4 Mg/2 Ml Vial) 4 mg IVPUSH Q8H PRN PRN Reason: Nausea and Vomiting Last Admin: 11/30/21 09:39 Dose: 4 mg Documented by: Pantoprazole Sodium (Pantoprazole Sodium 40 Mg/10 Ml Vial) 40 mg IVPUSH DAILY@0630 [facility] Last Admin: 11/30/21 06:04 Dose: 40 mg Documented by: Sodium Chloride (0.9 % Sodium Chloride Flush 3 Ml Syringe) 3 ml IVFLUSH QSHIFT [facility] Last Admin: 11/30/21 07:46 Dose: 3 ml Documented by: Time Spent With Patient Time: Total time spent is greater than 50% in coordination of care (as documented) at patient's floor/unit and/or counseling patient: Quality Stroke Does the patient have a stroke diagnosis?: No VTE Prior VTE?: No VTE Risk Level:: Surgical - moderate VTE Device Contraindication: N/A - Device Ordered VTE Drug Contraindication: N/A - Med Ordered
[2021-11-30 19:02] VITALS: BP 143/70; PULSE 66; RESP 18; TEMP 36.7; O2SAT 95
[2021-11-30 23:54] VITALS: BP 165/77; PULSE 61; RESP 18; TEMP 36.4; O2SAT 95
[2021-12-01 03:28] VITALS: BP 153/70; PULSE 53; RESP 18; TEMP 36.4; O2SAT 96
[2021-12-01] MEDS: Metoclopramide HCl 10 MG/2 ML VIAL IVPUSH ×4 (04:44→23:31)
[2021-12-01] MEDS: Pantoprazole Sodium 40 MG/10 ML VIAL IVPUSH (04:44)
[2021-12-01 06:23] LABS: MANUAL DIFF FLAG NO
[2021-12-01 06:30] LABS: Basophils Percent Auto 0.4 % (0-2); Eosinophils Absolute Auto 0.1 X10*3/uL (0.0-0.4); Eosinophils Percent Auto 1.1 % (0-4); Hemoglobin 12.2 g/dl (14.0-18.0); Imm Gran Abs Auto 0.07 X10*3/uL (0.00-0.03); Imm Gran Pct Auto 1.2 % (0.0-0.4); Lymphocytes Absolute Auto 1.3 X10*3/uL (1.2-4.9); Lymphocytes Percent Auto 22.9 % (20-40); Mean Corpuscular HGB Conc 31.3 g/dl (31.0-36.0); Mean Corpuscular Hemoglobin 28.2 pg (27.0-33.0); Mean Corpuscular Volume 90.3 fL (80.0-98.0); Mean Platelet Volume 11.5 fL (9.4-12.4); Monocytes Absolute Auto 0.6 X10*3/uL (0.1-1.2); Monocytes Percent Auto 11.4 % (2-11); Neutrophils Absolute Auto 3.6 x10*3/uL (2.0-8.3); Platelet Count 182 X10*3/uL (160-400); Red Blood Count 4.32 X10*6/uL (4.60-5.80); Red Cell Distribution Width 13.9 % (11.0-16.0); White Blood Count 5.6 X10*3/uL (4.8-10.8)
[2021-12-01 08:00] VITALS: BP 122/67; PULSE 80; RESP 20; TEMP 36.4; O2SAT 100
[2021-12-01 08:41] LABS: Phosphorus 3.4 mg/dL (2.7-4.5)
[2021-12-01 08:42] LABS: Magnesium 2.1 mg/dL (1.6-2.6)
[2021-12-01 08:46] LABS: Anion Gap 18 (12-20); Blood Urea Nitrogen 15 mg/dL (9-16); Calcium 8.3 mg/dL (8.4-10.2); Carbon Dioxide 19 mmol/L (22-29); Chloride 116 mmol/L (96-108); Creatinine Clr Calc Pharmacy 69.2; Estimated Glomerular Filt Rate > 60; Glucose Random 70 mg/dL (60-115); Potassium 3.5 mmol/L (3.3-5.1); Sodium 149 mmol/L (135-145)
[2021-12-01] MEDS: 0.9 % Sodium Chloride 1,000 ML 100 ML IVCONT ×3 (09:12→23:32)
[2021-12-01 11:09] VITALS: BP 165/77; PULSE 60; RESP 19; TEMP 36.4; O2SAT 95
[2021-12-01 15:19] VITALS: BP 157/72; PULSE 52; RESP 18; TEMP 36.8; O2SAT 99
[2021-12-01 20:00] VITALS: BP 148/70; PULSE 66; RESP 18; TEMP 36.5; O2SAT 96
--- NOTE | 2021-12-01 21:22 | P.PNGS_ITS ---
Subjective Subjective Date of Service: 12/01/21 Interval history: feeling better passing lots of liquid stool, no pressure in chest, not nauseated now Physical Exam Vital Signs: Vital Signs: Last Vital Signs Temp 97.7 F 12/01/21 20:00 Pulse 66 12/01/21 20:00 Resp 18 12/01/21 20:00 BP 148/70 H 12/01/21 20:00 Pulse Ox 96 12/01/21 20:00 BMI result Body Mass Index 24.0 GI: Other: soft nontender nondistended better bowel sounds Objective Data Active Medications Acetaminophen (Ofirmev) 1,000 mg in 100 mls @ 400 mls/hr IV Q6H [facility] Last Infusion: 12/01/21 21:13 Dose: 0 mls/hr Documented by: BENOIT Sodium Chloride (Ns) 1,000 mls @ 100 mls/hr IVCONT .Q10H [facility] Last Admin: 12/01/21 16:13 Dose: 100 mls/hr Documented by: NARINDER Metoclopramide HCl (Metoclopramide Hcl 10 Mg/2 Ml Vial) 10 mg IVPUSH Q6H [facility] Last Admin: 12/01/21 17:24 Dose: 10 mg Documented by: NARINDER Morphine Sulfate (Morphine Sulfate 4 Mg/Ml Cartridge) 4 mg IVPUSH Q4H PRN; Protocol PRN Reason: Pain, Severe (Pain Scale 7-10) Last Admin: 11/29/21 01:42 Dose: 4 mg Documented by: SHARLENE Ondansetron HCl (Ondansetron Hcl 4 Mg/2 Ml Vial) 4 mg IVPUSH Q8H PRN PRN Reason: Nausea and Vomiting Last Admin: 11/30/21 09:39 Dose: 4 mg Documented by: NARINDER Sodium Chloride (0.9 % Sodium Chloride Flush 3 Ml Syringe) 3 ml IVFLUSH QSHIFT [facility] Last Admin: 12/01/21 20:56 Dose: Not Given Documented by: BENOIT Non-Admin Reason: IV Running Labs CBC & Chem 7: 12/01/21 05:33 12/01/21 05:33 Labs: Laboratory Results - last 24 hr 12/01/21 12/01/21 12/01/21 05:33 05:33 05:33 MCV 90.3 MCH 28.2 MCHC 31.3 RDW 13.9 Plt Count 182 MPV 11.5 Immature Gran % (Auto) 1.2 H Neut % (Auto) 63.0 Lymph % (Auto) 22.9 [place] % (Auto) 11.4 H Eos % (Auto) 1.1 Baso % (Auto) 0.4 Lymph # (Auto) 1.3 [place] # (Auto) 0.6 Eos # (Auto) 0.1 Baso # (Auto) 0.0 Abs Immat Gran (auto) 0.07 H Absolute Neuts (auto) 3.6 Absolute Nucleated RBC 0.000 Nucleated RBC % (auto) 0.0 Anion Gap 18 Estim Creat Clear Calc 69.2 Estimated GFR > 60 Random Glucose 70 D Calcium 8.3 L Phosphorus Magnesium 2.1 12/01/21 05:33 MCV MCH MCHC RDW Plt Count MPV Immature Gran % (Auto) Neut % (Auto) Lymph % (Auto) Thur[place] % (Auto) Eos % (Auto) Baso % (Auto) Lymph # (Auto) [place] # (Auto) Eos # (Auto) Baso # (Auto) Abs Immat Gran (auto) Absolute Neuts (auto) Absolute Nucleated RBC Nucleated RBC % (auto) Anion Gap Estim Creat Clear Calc Estimated GFR Random Glucose Calcium Phosphorus 3.4 Magnesium Procedures Date of Service Date of Service: 12/01/21 Progress Note: A&P Assessment and plan (1) SBO (small bowel obstruction): Status: Acute Assessment and Plan: 76 year old male with previous surgeries with psbo now resolving by imaging and feeling better. plan to increase diet to liquids, ambulate, cont with reglan, need to f.u on final bx pathology Fall Risk Details Current Medications: Current Medications Acetaminophen (Ofirmev) 1,000 mg in 100 mls @ 400 mls/hr IV Q6H [facility] Last Infusion: 12/01/21 21:13 Dose: Infused Documented by: Sodium Chloride (Ns) 1,000 mls @ 100 mls/hr IVCONT .Q10H [facility] Last Admin: 12/01/21 16:13 Dose: 100 mls/hr Documented by: Metoclopramide HCl (Metoclopramide Hcl 10 Mg/2 Ml Vial) 10 mg IVPUSH Q6H [facility] Last Admin: 12/01/21 17:24 Dose: 10 mg Documented by: Morphine Sulfate (Morphine Sulfate 4 Mg/Ml Cartridge) 4 mg IVPUSH Q4H PRN; Protocol PRN Reason: Pain, Severe (Pain Scale 7-10) Last Admin: 11/29/21 01:42 Dose: 4 mg Documented by: Ondansetron HCl (Ondansetron Hcl 4 Mg/2 Ml Vial) 4 mg IVPUSH Q8H PRN PRN Reason: Nausea and Vomiting Last Admin: 11/30/21 09:39 Dose: 4 mg Documented by: Sodium Chloride (0.9 % Sodium Chloride Flush 3 Ml Syringe) 3 ml IVFLUSH [facility] Last Admin: 12/01/21 20:56 Dose: Not Given Documented by: Time Spent With Patient Time: Total time spent is greater than 50% in coordination of care (as documented) at patient's floor/unit and/or counseling patient: Quality Stroke Does the patient have a stroke diagnosis?: No VTE Prior VTE?: No VTE Risk Level:: Surgical - moderate VTE Device Contraindication: N/A - Device Ordered VTE Drug Contraindication: N/A - Med Ordered
[2021-12-01 23:34] VITALS: BP 168/81; PULSE 50; RESP 16; TEMP 36.4; O2SAT 97
[2021-12-02 03:41] VITALS: BP 164/70; PULSE 50; RESP 16; TEMP 36.2; O2SAT 97
[2021-12-02] MEDS: Metoclopramide HCl 10 MG/2 ML VIAL IVPUSH ×4 (06:14→23:52)
[2021-12-02 06:59] VITALS: BP 172/70; RESP 18; TEMP 37.2; O2SAT 96
[2021-12-02] MEDS: 0.9 % Sodium Chloride 1,000 ML 100 ML IVCONT ×2 (08:49→21:15)
--- NOTE | 2021-12-02 08:52 | P.PNGS_ITS ---
Subjective Subjective Date of Service: 12/02/21 Interval history: Feels much better today. Denies pain. Tolerating clear liquids without worsening abd pain, nausea or vomiting. Continues with loose stools. OOB and ambulating. Physical Exam Vital Signs: Vital Signs: Last Vital Signs Temp 98.9 F 12/02/21 06:59 Pulse 50 12/02/21 03:41 Resp 18 12/02/21 06:59 BP 172/70 H 12/02/21 06:59 Pulse Ox 96 12/02/21 06:59 BMI result Body Mass Index 24.0 Const: General: no acute distress and alert Orientation/consciousness: patient oriented x3 Resp: Effort & Inspection: normal respiratory effort GI: Inspection: No distended Palpation (GI): Soft to palpation, Tenderness to palpation present (GI) (very mild to deep palpation, LUQ), no guarding and not rigid Percussion: Yes normal to percussion Skin: General skin exam: no rashes or lesions noted Neuro: General: patient oriented x3 Objective Data Active Medications Hydrochlorothiazide (Hydrochlorothiazide 12.5 Mg Tablet) 12.5 mg PO DAILY [facility]; Protocol Acetaminophen (Ofirmev) 1,000 mg in 100 mls @ 400 mls/hr IV Q6H [facility] Last Admin: 12/02/21 08:48 Dose: 400 mls/hr Documented by: NARINDER Sodium Chloride (Ns) 1,000 mls @ 100 mls/hr IVCONT .Q10H [facility] Last Admin: 12/02/21 08:49 Dose: 100 mls/hr Documented by: NARINDER Lisinopril (Lisinopril 20 Mg Tablet) 20 mg PO DAILY [facility]; Protocol Metoclopramide HCl (Metoclopramide Hcl 10 Mg/2 Ml Vial) 10 mg IVPUSH Q6H [facility] Last Admin: 12/02/21 06:14 Dose: 10 mg Documented by: BENOIT Omeprazole (Omeprazole 40 Mg Capsule.) 40 mg PO BID@0630,1630 [facility] Ondansetron HCl (Ondansetron Hcl 4 Mg/2 Ml Vial) 4 mg IVPUSH Q8H PRN PRN Reason: Nausea and Vomiting Last Admin: 11/30/21 09:39 Dose: 4 mg Documented by: NARINDER Sodium Chloride (0.9 % Sodium Chloride Flush 3 Ml Syringe) 3 ml IVFLUSH QSHIFT [facility] Last Admin: 12/02/21 07:02 Dose: Not Given Documented by: NARINDER Non-Admin Reason: IV Running Verapamil HCl (Verapamil Hcl Sr 240 Mg Tablet.Er) 240 mg PO DAILY [facility]; Protocol Labs CBC & Chem 7: 12/01/21 05:33 12/01/21 05:33 Microbiology Microbiology Results: Microbiology 11/26/21 23:27 Blood Culture - Final Blood - Venous No growth after 5 days. 11/26/21 22:01 Blood Culture - Final Blood - Venous No growth after 5 days. Procedures Date of Service Date of Service: 12/02/21 Progress Note: A&P Assessment and plan (1) Mass of right side of neck: Status: Acute (2) SBO (small bowel obstruction): Status: Acute Plan 76 year old male with hx of esophageal CA and subsequent distal esophagectomy and gastric pull through admitted for treatment of SBO. SB series over weekend- suggestive of PSBO. Started on reglan. Now with resolution of abd pain, nausea and passing flatus/loose stools. PSBO appears to be resolved. Tolerating clears with good GI function. Will adv ance to low residue diet. Patient comfortable with plan. Home when tolerating solid diet- possible today or tomorrow. HTN- resume home meds. CT guided biopsy of right anterior mediastinal mass performed yesterday. Pathology pending. F/u with PCP regarding results. Fall Risk Details Current Medications: Current Medications Hydrochlorothiazide (Hydrochlorothiazide 12.5 Mg Tablet) 12.5 mg PO DAILY [facility]; Protocol Acetaminophen (Ofirmev) 1,000 mg in 100 mls @ 400 mls/hr IV Q6H [facility] Last Admin: 12/02/21 08:48 Dose: 400 mls/hr Documented by: Sodium Chloride (Ns) 1,000 mls @ 100 mls/hr IVCONT .Q10H [facility] Last Admin: 12/02/21 08:49 Dose: 100 mls/hr Documented by: Lisinopril (Lisinopril 20 Mg Tablet) 20 mg PO DAILY [facility]; Protocol Metoclopramide HCl (Metoclopramide Hcl 10 Mg/2 Ml Vial) 10 mg IVPUSH Q6H [facility] Last Admin: 12/02/21 06:14 Dose: 10 mg Documented by: Omeprazole (Omeprazole 40 Mg Capsule.Dr) 40 mg PO BID@0630,1630 [facility] Ondansetron HCl (Ondansetron Hcl 4 Mg/2 Ml Vial) 4 mg IVPUSH Q8H PRN PRN Reason: Nausea and Vomiting Last Admin: 11/30/21 09:39 Dose: 4 mg Documented by: Sodium Chloride (0.9 % Sodium Chloride Flush 3 Ml Syringe) 3 ml IVFLUSH QSHIFT [facility] Last Admin: 12/02/21 07:02 Dose: Not Given Documented by: Verapamil HCl (Verapamil Hcl Sr 240 Mg Tablet.Er) 240 mg PO DAILY [facility]; Protocol Time Spent With Patient Time: Total time spent is greater than 50% in coordination of care (as documented) at patient's floor/unit and/or counseling patient: Quality Stroke Does the patient have a stroke diagnosis?: No VTE Prior VTE?: No VTE Risk Level:: Surgical - moderate VTE Device Contraindication: N/A - Device Ordered VTE Drug Contraindication: N/A - Med Ordered
[2021-12-02] MEDS: hydroCHLOROthiazide 12.5 MG TABLET PO (09:53)
[2021-12-02] MEDS: lisinopriL 20 MG TABLET PO (09:53)
[2021-12-02 10:35] VITALS: BP 165/72; PULSE 50; RESP 18; TEMP 36.6; O2SAT 97
--- NOTE | 2021-12-02 14:26 | MHC.CM.PN ---
nurse caser up note electronic medical reord reviewed along with case discussed with staff nurse . pmwt with patient ans his , he reported feeling much better and tolerating is clear liquid diet , plan is to slowly advance his diet and monitor his tolerance , has been haviong loose stools , and is ambulating with the staff in the hallways , he continues on iv fluids , iv nedications ivfluids, discharge plan after discussion today he still does not feel he needs or wants the vna at discharge , he will follow up with his pcp and his oncy dr alan mendezing the ct bx of his neck mass. transportation family pcp dr jd mccrary
[2021-12-02 15:09] VITALS: BP 144/72; PULSE 52; RESP 18; TEMP 36.6; O2SAT 95
--- NOTE | 2021-12-02 15:37 | PC.NURSE ---
Pt tolerating diet. Ambulating in hallways. Denies n/v or pain
[2021-12-02] MEDS: Omeprazole 40 MG CAPSULE.DR PO (17:35)
[2021-12-02 19:45] VITALS: BP 170/100; PULSE 50; RESP 15; TEMP 36.1; O2SAT 97
--- NOTE | 2021-12-02 21:45 | PC.NURSE ---
Patient hR in 50s, verapamil held today for HR in 40s-50s, BP is slowly elevating, Last BP 1900 170/[address] Guerin, told patient is not on his hospitalist list of patients and instructed to call surgery. Reported to Dr Cueva and was told to enter order for hospitalist consult. Also noted IVF order d/c by pharmacy, was told to continue NS @ 100/hr by Dr Cueva via [employer] connect. Patient takes in little po fluids or food.
[2021-12-02 22:44] VITALS: BP 160/68; PULSE 47; RESP 18; O2SAT 97
[2021-12-02] MEDS: Dextrose 5 % and 0.45 % NaCl 1,000 ML 50 ML IVCONT (23:07)
[2021-12-03 03:22] VITALS: BP 167/82; PULSE 55; RESP 16; TEMP 36.6; O2SAT 94
[2021-12-03] MEDS: Metoclopramide HCl 10 MG/2 ML VIAL IVPUSH ×2 (05:47→11:42)
[2021-12-03] MEDS: Omeprazole 40 MG CAPSULE.DR PO (05:47)
[2021-12-03 07:14] VITALS: BP 163/75; PULSE 52; RESP 16; TEMP 36.4; O2SAT 94
[2021-12-03] MEDS: hydroCHLOROthiazide 12.5 MG TABLET PO (07:24)
[2021-12-03] MEDS: lisinopriL 20 MG TABLET PO (07:25)
--- NOTE | 2021-12-03 07:42 | P.PNGS_ITS ---
Subjective Subjective Date of Service: 12/03/21 Patient reports: no new complaints, tolerating a regular diet and no bowel movement Physical Exam Vital Signs: Vital Signs: Last Vital Signs Temp 97.6 F 12/03/21 07:14 Pulse 52 12/03/21 07:14 Resp 16 12/03/21 07:14 BP 163/75 H 12/03/21 07:14 Pulse Ox 94 12/03/21 07:14 BMI result Body Mass Index 24.0 Const: General: no acute distress Nutritional Appearance: well nourished Orientation/consciousness: patient oriented x3 Limitations: no limitations Neck: Other: biopsy site is clean and intact without redness or discharge Resp: Effort & Inspection: normal respiratory effort, no respiratory distress, no stridor and not tachypneic GI: Inspection: Yes normal to inspection Palpation (GI): Soft to palpation, nontender, no guarding and not rigid Percussion: Yes normal to percussion Auscultation: normal bowel sounds Neuro: General: patient oriented x3 Objective Data Active Medications Hydrochlorothiazide (Hydrochlorothiazide 12.5 Mg Tablet) 12.5 mg PO DAILY [facility]; Protocol Last Admin: 12/03/21 07:24 Dose: 12.5 mg Documented by: SLOAN Comments: BP 163/75 Dextrose/Sodium Chloride (D51/2ns) 1,000 mls @ 50 mls/hr IVCONT .Q20H [facility] Last Admin: 12/02/21 23:07 Dose: 50 mls/hr Documented by: JACKSON Lisinopril (Lisinopril 20 Mg Tablet) 20 mg PO DAILY [facility]; Protocol Last Admin: 12/03/21 07:25 Dose: 20 mg Documented by: SLOAN Comments: BP 163/75 Metoclopramide HCl (Metoclopramide Hcl 10 Mg/2 Ml Vial) 10 mg IVPUSH Q6H [facility] Last Admin: 12/03/21 05:47 Dose: 10 mg Documented by: ROHAN Omeprazole (Omeprazole 40 Mg Capsule.) 40 mg PO BID@0630,1630 [facility] Last Admin: 12/03/21 05:47 Dose: 40 mg Documented by: ROHAN Ondansetron HCl (Ondansetron Hcl 4 Mg/2 Ml Vial) 4 mg IVPUSH Q8H PRN PRN Reason: Nausea and Vomiting Last Admin: 11/30/21 09:39 Dose: 4 mg Documented by: NARINDER Sodium Chloride (0.9 % Sodium Chloride Flush 3 Ml Syringe) 3 ml IVFLUSH QSHIFT [facility] Last Admin: 12/03/21 07:26 Dose: Not Given Documented by: SLOAN Non-Admin Reason: IV Running Verapamil HCl (Verapamil Hcl Sr 240 Mg Tablet.Er) 240 mg PO DAILY [facility]; Protocol Last Admin: 12/03/21 07:26 Dose: Not Given Documented by: SLOAN Non-Admin Reason: Due to pulse of 52 Labs CBC & Chem 7: 12/01/21 05:33 12/01/21 05:33 Procedures Date of Service Date of Service: 12/03/21 Progress Note: A&P Assessment and plan (1) SBO (small bowel obstruction): Status: Acute (2) Mass of right side of neck: Status: Acute (3) Esophageal adenocarcinoma: Status: Chronic Plan 76 year old male with hx of esophageal CA and subsequent distal esophagectomy and gastric pull through admitted for treatment of SBO. SB series over weekend- suggestive of PSBO. Started on reglan. Now with resolution of abd pain, nausea and passing flatus/loose stools. Patient started on regular diet yesterday and tolerated this well without nausea, vomiting, abdominal pain or distension. CT guided biopsy of right anterior mediastinal mass pathology results are pending. He will follow up with Dr. Hirsch for results. Will discharge to home today. Follow up in office in one week. Fall Risk Details Current Medications: Current Medications Hydrochlorothiazide (Hydrochlorothiazide 12.5 Mg Tablet) 12.5 mg PO DAILY [facility]; Protocol Last Admin: 12/03/21 07:24 Dose: 12.5 mg Documented by: Dextrose/Sodium Chloride (D51/2ns) 1,000 mls @ 50 mls/hr IVCONT .Q20H [facility] Last Admin: 12/02/21 23:07 Dose: 50 mls/hr Documented by: Lisinopril (Lisinopril 20 Mg Tablet) 20 mg PO DAILY [facility]; Protocol Last Admin: 12/03/21 07:25 Dose: 20 mg Documented by: Metoclopramide HCl (Metoclopramide Hcl 10 Mg/2 Ml Vial) 10 mg IVPUSH Q6H [facility] Last Admin: 12/03/21 05:47 Dose: 10 mg Documented by: Omeprazole (Omeprazole 40 Mg Capsule.Dr) 40 mg PO BID@0630,1630 [facility] Last Admin: 12/03/21 05:47 Dose: 40 mg Documented by: Ondansetron HCl (Ondansetron Hcl 4 Mg/2 Ml Vial) 4 mg IVPUSH Q8H PRN PRN Reason: Nausea and Vomiting Last Admin: 11/30/21 09:39 Dose: 4 mg Documented by: Sodium Chloride (0.9 % Sodium Chloride Flush 3 Ml Syringe) 3 ml IVFLUSH QSHIFT [facility] Last Admin: 12/03/21 07:26 Dose: Not Given Documented by: Verapamil HCl (Verapamil Hcl Sr 240 Mg Tablet.Er) 240 mg PO DAILY [facility]; Protocol Last Admin: 12/03/21 07:26 Dose: Not Given Documented by: Time Spent With Patient Time: Total time spent is greater than 50% in coordination of care (as documented) at patient's floor/unit and/or counseling patient: Quality Stroke Does the patient have a stroke diagnosis?: No VTE Prior VTE?: No VTE Risk Level:: Surgical - moderate VTE Device Contraindication: N/A - Device Ordered VTE Drug Contraindication: N/A - Med Ordered
--- NOTE | 2021-12-03 08:38 | MHC.CM.PN ---
NURSE CAWE MANAGEMENT NOTE ELECTRONIC MEIDCAL RECORD REVIEWED DISCHARGE PLAN HOME WITH (INDEPENDENT IN ADLS AND MOBILITY NO SERVICES TRANSPORTATIOJ FAMILY PCP DR EDGARD MARCELINO PATIENT TO CALL FOR [facility] DISCHARGE SURGICAL FOLLOW UP PER DISCHARGE INSTRUCTIONS MEDICARE IMM 12/02/21 MET WITH PATIENT AND HE IS EAGER TO BE DISCHARGED HOME
--- NOTE | 2021-12-03 10:21 | PM.DS ---
DS: Providers Provider Date of Service: 12/03/21 Date of admission: 11/27/21 00:10 Primary care physician: Matthew Hirsch MD, DO Attending physician on admission: Mylene Rivera Ranjeet Magallanes Consults: 12/02/21 21:43 Consult to Hospitalist Stat Consulting Provider: Hospitalist Reason For Exam: HTN Attending physician on discharge: Ulisses Gregory DS: Diagnosis Discharge Diagnosis (1) SBO (small bowel obstruction): Status: Acute (2) Mass of right side of neck: Status: Acute (3) Esophageal adenocarcinoma: Status: Chronic DS: Summary Hospital Course Hospital Course: BRIEF HPI: Yoseph Orellana is a 76 year old male who had a distal esophagectomy with gastric pullthrough in 2019 at [facility] and has done well. he also had a j-tube placed at the time. He also has a history of prostate cancer and was operated remotely in the past for that. He has done well but has had a few episodes of SBO that have resolved with conservative care. He presented to [facility] yesterday with complaints of nausea an vomiting and abdo pain similar to his SBO. In the past he has had ng decompression and ivf and bowel rest. he recently has been having some issues with dysphagia and swallow study shows aspiration with thin liquids does ok with thicker substances. Mass found behind thyroid and he needs to have that biopsied. HOSPITAL COURSE: The patient was admitted to the surgical service for further treatment of his SBO. He was made npo, kept on ivf and antiemetics. No vomiting at presentation and with pullthrough, NGT therefore held. The patient had a slow but uncomplicated recovery course. He initially improved over the first couple days with supportive measures. His abd pain improved and he began to pass flatus and had some loose bowel movements. He was ambulated. He was therefore advanced to clear liquids with which he had worsening abdominal pain and distention. He was therefore made NPO again. A SB series was obtained which was consistent with PSBO, there was later contrast in colon. He had cramping pain following which was thought to be secondary to the gastrograffin moving through GI system. He also did develop nausea. An NGT was therefore attempted but was unsuccessful and therefore held off due to risk of aspiration. He was started on reglan ATC for nausea and as a prokinetic. The following day, AXR was improved and he felt better as well with decreases abdominal pain. He continued to pass flatus, moving bowels. He was advanced to a clear liquid diet and then solid diet. On the day of discharge, he was tolerating a solid diet without abdominal pain, nausea or vomiting and had good GI function. He felt ready for discharge. He was discharged to home on 12/03/21 in stable condition. He is to follow up with Dr. Gregory in office in 1 week. He did undergo CT guided biopsy of the right mediastinal mass during his stay. Pathology is pending. He was instructed to follow up with his PCP regarding results. Status at Discharge Functional status at discharge: independent ambulation Overall status at discharge: patient is back to baseline Time Spent with Patient Time attestation: Total time spent providing and/or coordinating discharge services: Discharge coordination time: Greater than 30 minutes Quality: Safe Use of Opioids Does Pt have an Active Cancer Diagnosis on the Problem List?: No Quality: Stroke Does the patient have a stroke diagnosis?: No Physical Exam Vital Signs: Vital Signs: Last Vital Signs Temp 97.6 F 12/03/21 07:14 Pulse 52 12/03/21 07:14 Resp 16 12/03/21 07:14 BP 163/75 H 12/03/21 07:14 Pulse Ox 94 12/03/21 07:14 BMI result Body Mass Index 24.0 Const: General: comfortable, no acute distress and alert Orientation/consciousness: patient oriented x3 Resp: Effort & Inspection: normal respiratory effort GI: Inspection: No distended Palpation (GI): Soft to palpation, nontender, no guarding and not rigid Percussion: Yes normal to percussion Skin: General skin exam: no rashes or lesions noted Neuro: General: patient oriented x3 DS: Data Data Completed and Pending Pending studies at discharge: Pending at discharge 11/28/21 14:56 Surgical Path [Surgical] [PTH] Routine Cytology [PTH] Routine Discharge Plan Discharge Patient Disposition: Home, Self-Care Discharge Diagnosis: SBO Referrals: Matthew Hirsch MD, DO [Primary Care Provider] - 1 Week Ulisses Gregory MD [Physician] - 1 Week Discharge Medications: Continued omeprazole 40 mg capsule,delayed release(DR/EC) 40 mg PO BID@0630,1630 0RF polyethylene glycol 3350 [Miralax] 17 gram/dose Powder 17 g PO BEDTIME 0RF fluticasone propionate 50 mcg/actuation spray,suspension 50 mcg INTRANASAL DAILY 0RF rosuvastatin 20 mg tablet 20 mg PO BEDTIME 0RF Allergy Relief (cetirizine) 10 mg Capsule 10 mg PO DAILY 0RF lisinopril 20 mg tablet 1 tab PO DAILY 0RF verapamil 240 mg capsule,ext rel. pellets 24 hr 1 cap PO DAILY 0RF hydrochlorothiazide 12.5 mg tablet 1 tab PO DAILY 0RF multivitamin Liquid 5 ml PO DAILY 0RF Discharge Orders: Discharge Order (Routine); Ordered 12/03/21 Ordered By: Ulisses Gregory Diet: advance to usual diet Activity on Discharge: As tolerated Stand Alone Forms: Patient Portal Discharge page Care Plan Goals: Return to activity as tolerated. Health Concerns: SBO Right mediastinal mass Plan of Treatment: Supportive measures. F/u in office with PCP regarding biopsy results. Assessment: Improved
[2021-12-03 11:18] VITALS: BP 167/85; PULSE 55; RESP 18; TEMP 36.6; O2SAT 96
== END 2021-12-03 13:27 | disposition home or self-care (01) | DRG 167 ==
LOC: HO.ED 23:47 → HO.EDOVER 11-27 00:22 → HO.S3 11-27 01:47
PROVIDERS: Radiology Diagnostic Radiology; Admitting Provider Surgery; Emergency Provider Student in an Organized Health Care Education/Training Program; PCP Internal Medicine; Visit Provider Surgery
PROC: 0WBC3ZX Excision of Mediastinum, Percutaneous Approach, Diagnostic (ICD-10-PCS; principal; 2021-11-28 14:00)
DX: J98.59 Other diseases of mediastinum, not elsewhere classified (principal); K91.31 Postprocedural partial intestinal obstruction; K59.00 Constipation, unspecified; I10 Essential (primary) hypertension; Z20.822 Contact with and (suspected) exposure to COVID-19; Z85.46 Personal history of malignant neoplasm of prostate; Z87.891 Personal history of nicotine dependence; Z90.49 Acquired absence of other specified parts of digestive tract; Z85.820 Personal history of malignant melanoma of skin; Z85.01 Personal history of malignant neoplasm of esophagus; Z79.51 Long term (current) use of inhaled steroids; Z79.899 Other long term (current) drug therapy
CPT/HCPCS: 10009; 32408; 36415; 74177; 74250; 80048; 80053; 83605; 83735; 84100; 85025; 85610; 87040; 87502; 87635; 88172; 88173; 88305; 88333; 88341; 88342; 88360; 93005; 96361; 96365; 96375; 99152; 99153; 99285; J0131; J1642; J2270; J2405; J2543; J2765; J3010; Q9967

== ENCOUNTER → 2021-12-12 14:53 | Outpatient (BNVA) | payer MEDICARE, OTHER, SELFPAY | PROVIDERS: PCP Internal Medicine; Referring Provider Internal Medicine; Visit Provider Surgery | DX: K56.609 Unspecified intestinal obstruction, unspecified as to partial versus complete obstruction (principal); C78.89 Secondary malignant neoplasm of other digestive organs | CPT/HCPCS: 99212 ==

== ENCOUNTER 2022-03-10 15:24 | Outpatient (REF) | payer MEDICARE, OTHER, SELFPAY ==
--- NOTE | ~2022-03-10 | CT_ITS ---
EXAMINATION: CT CHEST WITH CONTRAST CLINICAL INFORMATION: Malignant neoplasm of esophagus. COMPARISON: CT chest 10/10/2021. TECHNIQUE: Multidetector volumetric CT imaging of the chest was obtained after the administration of 50 mL of Omnipaque 350 intravenous contrast without immediate adverse reactions. Axial MIP volume rendering provided. Sagittal and coronal reformatted images were obtained. This CT examination was performed using dose optimization techniques as appropriate, variously including the following: *Automated exposure control *Adjustment of mA and/or kV according to patient size (this includes techniques or standardized protocols for targeted exams where dose is matched to indication/reason for exam; i.e. 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 LUNGS: The lungs are well-expanded with 2 mm calcified nodule left upper lobe axial image 99/4, pleural-based 2 mm noncalcified nodule image 114/4, 2 mm cavitary nodule centrally left upper lobe axial image 130/4, 2 mm nodule right upper lobe axial image 151/4 and 134/4, 2 mm nodule left upper lobe axial image 167/4 and 189/4, 3 mm nodule left upper lobe axial image 181/4, 2 mm pleural-based nodule right middle lobe axial image 373/4 and 375/4. No acute consolidation seen. MEDIASTINUM: The thyroid lobes are symmetrical and normal. The trachea and the bronchi widely patent. The heart size and great vessels are normal caliber. Previously visualized right neck mass posterior right thyroid lobe has significantly improved with some residual changes persisting in the right paratracheal space. It measures approximately 1.35 x 1.0 cm axial image 11/3. Previously it measured 3.8 x 3.0 cm. There is no pericardial effusion. There are gastric pull-through surgical changes with air-fluid level within the pulled stomach and the mid and distal mediastinum. Right jugular central catheter tip is in mid SVC. PLEURA: There is no pleural effusion. No pleural mass or thickening. AXILLA: No lymphadenopathy. UPPER ABDOMEN: Visualized liver, spleen, pancreas and bilateral adrenal glands are unremarkable. OSSEOUS STRUCTURES: No lytic or sclerotic process seen. There is moderate spondylosis. CT/CT chest w con IMPRESSION: Interval significant improvement in the right supraclavicular mass in the paratracheal space and posterior right thyroid lobe. It now measures approximately 1.35 cm in maximum dimension. There are gastric pull-through changes with no additional mediastinal lesions or mass seen. Numerous small pulmonary nodules as described above. Fleischner guidelines were followed.
[2022-03-10] MEDS: iohexoL 350 MG/ML 100 ML INFUS..BTL IV (16:17)
== END 2022-03-10 15:25 | disposition home or self-care (01) ==
LOC: HO.CT 15:24
PROVIDERS: PCP Internal Medicine; Visit Provider Internal Medicine
DX: C15.9 Malignant neoplasm of esophagus, unspecified (principal)
CPT/HCPCS: 71260; Q9967

== ENCOUNTER 2022-06-19 03:23 | Inpatient (IN) | payer MEDICARE, OTHER, SELFPAY ==
[2022-06-19] VITALS (9 sets, daily range): BP systolic 130–154; BP diastolic 76–97; PULSE 67–97; RESP 12–16; TEMP 36.7–37.9; O2SAT 93–98; BMI 26.5
--- NOTE | ~2022-06-19 | CT_ITS ---
EXAMINATION: CT ABDOMEN AND PELVIS WITHOUT CONTRAST CLINICAL INFORMATION: Abdominal pain. History of small bowel obstruction. COMPARISON: Small bowel follow-through 11/30/2021. CT performed 11/26/2021. TECHNIQUE: Multidetector volumetric imaging was performed from the superior aspect of the liver through the pubic symphysis. Sagittal and coronal reformatted images were obtained on the technologist's workstation. This CT examination was performed using dose optimization techniques as appropriate, variously including the following: *Automated exposure control *Adjustment of mA and/or kV according to patient size (this includes techniques or standardized protocols for targeted exams where dose is matched to indication/reason for exam; i.e. extremities or head) *Use of iterative reconstruction technique DLP: 473 mGy-cm FINDINGS: LUNG BASES: Pleural thickening at the lung bases. Basilar atelectasis. Status post esophagectomy with gastric pull-through. LIVER, GALLBLADDER, AND BILIARY TREE: The liver is normal in size, shape, and attenuation. No focal hepatic lesion or biliary ductal dilatation is present. The gallbladder is unremarkable with no evidence of radiopaque gallstones, gallbladder wall thickening, or obvious pericholecystic inflammatory changes. PANCREAS: Somewhat atrophic with no focal abnormality. SPLEEN: Unremarkable. ADRENAL GLANDS: Unremarkable. KIDNEYS AND URETERS: The kidneys are normal in size, shape, and attenuation. No hydronephrosis, hydroureter, or calculi seen. No perinephric stranding. BLADDER: Unremarkable. GASTROINTESTINAL TRACT: Status post gastric pull-through. Contrast extends into the small bowel. The small bowel is dilated proximally. This leads to a segment of small bowel in the central abdomen which also shows mild wall thickening. There is eventually fecalization leading to the transition point in the anterior left midabdomen. This is seen on series 3 image 32. The small bowel distal to this location is decompressed. Colonic diverticulosis without diverticulitis. No free air. Small amount of pelvic free fluid. ABDOMINAL WALL: No significant hernia is appreciated. Prior ventral abdominal wall hernia repair. LYMPH NODES: Normal. VASCULAR: Normal caliber aorta with moderate atherosclerotic calcifications. PELVIC VISCERA: Prostate not seen. No pelvic mass. Surgical clips in the pelvis. OSSEOUS STRUCTURES: No acute or suspicious osseous abnormality. Mild degenerative changes throughout the spine. Mild degenerative change of both hips. CT/CT abdomen pelvis wo IV con IMPRESSION: Small bowel obstruction with transition point in the anterior left midabdomen. Fleischner guidelines were followed.
--- NOTE | ~2022-06-19 | XR_ITS ---
EXAMINATION: XR CHEST CLINICAL INFORMATION: NG tube placement COMPARISON: CT scan of March 10, 2022 TECHNIQUE: 2 AP portable views of the chest were obtained. FINDINGS: Patient is status post gastric pull-up surgery with soft tissue density seen overlying the medial right chest on oblique view with suture line evident. A right internal jugular port catheter seen in place with tip in the distal superior vena cava. Atelectasis or scarring is seen at the left base. No pneumothorax identified. No significant pleural effusion. Enteric catheter is seen traversing either into the right mainstem bronchus or lying within the gastric pull-up with tip in the right subcarinal region. On the second chest x-ray the enteric catheter takes a turn medially at its side-port with this tip lying at the level of the left hemidiaphragm. This catheter is likely within the gastric pull-up and clinical correlation with content being aspirated be of help in verifying this. XR/XR chest 1V IMPRESSION: Enteric tube likely within the gastric pull-up as described. This critical result was discussed with Dr.Domenick Joshua at 4:35 PM on June 19, 2022 and it was ascertained that the content and urgency of the report was understood at the time of direct communication.
--- NOTE | 2022-06-19 03:42 | ED_ITS ---
HPI - Abdominal Pain General Chief Complaint: Abdominal Pain Stated Complaint: ABD PAIN HX BOWEL OBSTRUCTIONS Time Seen by Provider: 06/19/22 03:37 Source: patient and EMS Mode of arrival: EMS Limitations: no limitations History of Present Illness HPI narrative: 76-year-old male with history of distal esophagectomy with gastric pullthrough in 2019 at [facility], also history of esophageal cancer and prostate cancer on c hemotherapy it , patient had a history of small-bowel obstruction x2. Presented for evaluation of abdominal cramps for 1 day feels like previous episode of small-bowel obstruction in the past, patient feels nauseous but no vomiting, had small bowel movement today, last passing gas was yesterday. No fever, no chills. Related Data Home Medications Medication Instructions Recorded Confirmed cetirizine 10 mg capsule (Allergy 10 mg PO DAILY 05/23/20 05/26/22 Relief (cetirizine)) omeprazole 40 mg capsule,delayed 40 mg PO BID@0630,1630 05/23/20 05/26/22 release polyethylene glycol 3350 17 17 g PO BEDTIME 05/23/20 05/26/22 gram/dose oral powder (Miralax) rosuvastatin 20 mg tablet 20 mg PO BEDTIME 05/23/20 05/26/22 hydrochlorothiazide 12.5 mg tablet 1 tab PO DAILY 11/27/21 05/26/22 lisinopril 20 mg tablet 1 tab PO DAILY 11/27/21 05/26/22 multivitamin 5 ml PO DAILY 11/27/21 05/26/22 verapamil 240 mg 24 hr 1 cap PO DAILY 11/27/21 05/26/22 capsule,extended release Previous Rx's Medication Instructions Recorded dexamethasone 4 mg tablet 4 mg PO BID #60 tabs 12/24/21 (Decadron) ondansetron 8 mg disintegrating 8 mg PO Q8H #60 tabs 12/24/21 tablet acyclovir 800 mg tablet 800 mg PO TID #21 tabs 02/14/22 Magic Mouthwash 10 ml PO QID #240 mL 04/18/22 Diphen/Lido/Antacid 1:1:1 240 mL suspension gabapentin 300 mg capsule 300 mg PO DAILY #30 caps 06/13/22 Allergies Allergy/AdvReac Type Severity Reaction Status Date / Time No Known Allergies Allergy Verified 05/26/22 11:03 [No Known Allergies*] Review of Systems Review of Systems All other systems are reviewed and are negative Constitutional: Reports as per HPI and Reports no additional constitutional complaints Eyes: Reports as per HPI and Reports no additional eye complaints Reports system reviewed and no additional complaints, except as documented Cardiovascular: Reports as per HPI and Reports no additional cardiovascular complaints Respiratory: Reports as per HPI and Reports no additional respiratory complaints Gastrointestinal: Reports as per HPI and Reports no additional gastrointestinal complaints Genitourinary: Reports no additional female genitourinary complaints Musculoskeletal: Reports no additional musculoskeletal complaints Skin/Breast: Reports system reviewed and no additional complaints, except as docu Psychiatric: Reports no additional psychiatric complaints Endocrine: Reports no additional endocrine complaints Hematologic/Lymphatic: Reports no additional hematologic/lymphatic complaints Allergic/Immunologic: Reports no additional allergic/immunologic complaints Reports system reviewed and no additional complaints, except as documented and Reports Abnormal speech present [facility] Past Medical History Medical History Basal cell carcinoma, scalp/neck Cervical spondylosis Constipation Diverticulosis (~1998) Esophageal adenocarcinoma (~2017) GERD (gastroesophageal reflux disease) History of prostate cancer (~2004) History of small bowel obstruction (~2019) Hypercholesterolemia Hypertension Melanoma Osteoarthritis Personal history of nicotine dependence Shingles Throat mass Vitamin B12 deficiency Surgical History History of appendectomy History of colonoscopy History of esophagectomy (~2018) History of esophagogastroduodenoscopy (EGD) History of hemorrhoidectomy (~1993) History of incisional hernia repair (~2019) History of jejunostomy tube placement (~2018) History of meniscectomy of right knee (~2003) History of prostatectomy (~2004) Family History Family History Son Non-Hodgkin lymphoma Father Prostate cancer Mother No problems noted. Social History Social History Household Members: Spouse Housing: Condominium Are you a primary infant childcare provider to a significant other at home: No Do you presently have visiting nurse or other home services: No Alcohol intake: former Patient Tobacco Use Status: Former Tobacco user Years Smoked: 35 Second Hand Smoke Exposure: No Advance Directives: No service: Yes Current occupational status: retired Current occupation: rt handed Physical Exam ED Vital Signs: Vital Signs - 24 hr 06/19/22 03:46 06/19/22 05:55 Temperature 98.4 F 98.0 F Pulse Rate 67 70 Respiratory Rate 16 16 Blood Pressure 152/80 H 131/76 Pulse Oximetry 98 96 Oxygen Delivery Method Room Air Room Air BMI result Body Mass Index 26.5 Vital signs have been reviewed as appeared to be correct. Blood pressure normal. Heart rate normal. Respiration rate normal. Temperature normal. Oxygen saturation normal. Appearance: Alert. Oriented X3. No acute distress. Head: Normal external exam. Normocephalic. Atraumatic. No Carney signs noted. No raccoon eyes noted Eyes: PERRLA. EOMI. Conjunctiva and sclera normal. Eyelids normal. ENT: TM's Normal. Pharynx normal. Uvula midline. Moist mucous membranes. No trismus noted. No drooling noted. No muffled voice noted. Neck: Normal inspection. Neck supple. FROM. No adenopathy. Thyroid Normal. No meningeal signs. No neck mass noted. CVS: Normal heart rate and rhythm. Heart sound normal. No murmurs noted. Pulses normal throughout. Respiratory: No respiratory distress. Painless inspiration. Breath sounds normal. No wheezes/rales/rhonchi noted. Chest nontender. No accessory muscle usage noted or decreased air movement noted. Abdomen: Distended, diffuse tenderness, with guarding. Bowel sounds hyperactive in all 4 quadrants. No distention noted. No organomegaly noted. No visible injury noted. Back: No CVA tenderness. Full range of motion noted. Skin: Skin warm and dry. Normal skin color. Normal skin turgor. No rashes/lesions/lacerations noted. Extremities: No lower extremity edema. Extremities exhibit normal range of motion. Extremities nontender. Neuro: Oriented X 3. Cranial nerve exam: II-XII are grossly intact No motor deficit. No sensory deficit. Reflexes normal. Course Course Course Narrative: 76-year-old male with history of abdominal surgeries and history of small-bowel obstruction presented with abdominal cramps, labs are unremarkable for significant abnormalities, awaiting for CT of the abdomen and pelvis and discuss with surgery case was signed out to Dr. khan. Medications Administered Discontinued Medications Generic Name Dose Route Start Last Admin Trade Name Freq PRN Reason Stop Dose Admin Diatrizoate Meglum/Diatrizoate Sod 30 ml 06/19/22 04:39 06/19/22 04:39 Diatrizoate Meglumine, Sodium 30 Ml Solution PO 06/19/22 04:40 30 ml ONCE ONE Administration MDM - Abdominal Pain Medical Records Attestation: I reviewed the patient's medical records. Lab Data Attestation: I reviewed the patient's lab results. Result diagrams: 06/19/22 03:59 06/19/22 03:59 Labs: Lab Results 06/19/22 06/19/22 06/19/22 Range/Units 03:59 03:59 03:59 WBC 5.3 (4.8-10.8) X10*3/uL RBC 4.05 L (4.60-5.80) X10*6/uL Hgb 13.0 L (14.0-18.0) g/dl Hct 40.7 L (42.0-52.0) % MCV 100.5 H (80.0-98.0) fL MCH 32.1 (27.0-33.0) pg MCHC 31.9 (31.0-36.0) g/dl RDW 13.7 (11.0-16.0) % Plt Count TNP MPV 10.6 (9.4-12.4) fL Immature Gran % (Auto) 0.2 (0.0-0.4) % Neut % (Auto) 69.8 (45-73) % Lymph % (Auto) 15.9 L (20-40) % [place] % (Auto) 12.0 H (2-11) % Eos % (Auto) 1.5 (0-4) % Baso % (Auto) 0.6 (0-2) % Lymph # (Auto) 0.8 L (1.2-4.9) X10*3/uL [place] # (Auto) 0.6 (0.1-1.2) X10*3/uL Eos # (Auto) 0.1 (0.0-0.4) X10*3/uL Baso # (Auto) 0.0 (0.0-0.2) X10*3/uL Abs Immat Gran (auto) 0.01 (0.00-0.03) X10*3/uL Absolute Neuts (auto) 3.7 (2.0-8.3) x10*3/uL Absolute Nucleated RBC 0.000 (0.0-0.012) X10*3/uL Nucleated RBC % (auto) 0.0 (0.0-0.2) /100WBC Smear Tech's Comments VERIFIED Sodium 142 (135-145) mmol/L Potassium 4.4 (3.3-5.1) mmol/L Chloride 111 H (96-108) mmol/L Carbon Dioxide 21 L (22-29) mmol/L Anion Gap 14 (12-20) BUN 8 L (9-16) mg/dL Creatinine 0.84 (0.5-1.4) mg/dL Estim Creat Clear Calc 74.8 Estimated GFR > 60 Random Glucose 111 (60-115) mg/dL Calcium 8.7 (8.4-10.2) mg/dL Total Bilirubin 0.3 (0.0-1.0) mg/dL Direct Bilirubin < 0.2 (0.0-0.5) mg/dL AST 29 (5-37) U/L ALT 15 (0-40) U/L Alkaline Phosphatase 126 H (39-117) U/L Total Protein 6.1 L (6.5-8.0) g/dL Albumin 3.1 L (3.5-5.0) g/dL Lipase 12 (8-78) U/L COVID-19 (NUZHAT) Negative (Negative) COVID-19 Clin Com See Note Discharge Plan Discharge Clinical Impression: SBO (small bowel obstruction) Patient Disposition: Admitted As Inpatient
--- NOTE | 2022-06-19 03:47 | PC.NURSE ---
pt got change into hospital attire .
[2022-06-19 04:04] LABS: Eosinophils Absolute Auto 0.1 X10*3/uL (0.0-0.4); Lymphocytes Percent Auto 15.9 % (20-40); Mean Corpuscular Volume 100.5 fL (80.0-98.0); PLT CLUMP 1; SCAN SMEAR FLAG 1
[2022-06-19 04:06] LABS: Basophils Percent Auto 0.6 % (0-2); Eosinophils Percent Auto 1.5 % (0-4); Hematocrit 40.7 % (42.0-52.0); Imm Gran Abs Auto 0.01 X10*3/uL (0.00-0.03); Imm Gran Pct Auto 0.2 % (0.0-0.4); Lymphocytes Absolute Auto 0.8 X10*3/uL (1.2-4.9); MANUAL DIFF FLAG SCAN; Mean Corpuscular HGB Conc 31.9 g/dl (31.0-36.0); Mean Corpuscular Hemoglobin 32.1 pg (27.0-33.0); Mean Platelet Volume 10.6 fL (9.4-12.4); Monocytes Absolute Auto 0.6 X10*3/uL (0.1-1.2); Neutrophils Absolute Auto 3.7 x10*3/uL (2.0-8.3); Neutrophils Percent Auto 69.8 % (45-73); Red Blood Count 4.05 X10*6/uL (4.60-5.80); Red Cell Distribution Width 13.7 % (11.0-16.0)
[2022-06-19 04:08] LABS: White Blood Count 5.3 X10*3/uL (4.8-10.8)
[2022-06-19 04:18] LABS: COVID-19 Test Negative (Negative)
[2022-06-19 04:25] LABS: SLIDE REVIEW VERIFIED
--- OUTSIDE RECORDS SUMMARY | 2022-06-19 04:29 | XMS_ITS ---
:1945 Author Organization [facility] Address [address] [place] [address] Care Team Providers Name Role Phone Matthew Powell Unavailable Unavailable PROBLEMS Type Condition ICD9-CM QBO46-SK Onset Condition SNOMED Cod e Code Code Dates Status Problem Abnormal upper R93.3 Active gastrointestinal barium series Problem Gastroesophageal K21.9 Active 235 268995 reflux disease, esophagitis presence not specified Problem Esophageal dysphagia R13.10 Active 69913949 Problem Personal history of Z85.01 Active malignant neoplasm of esophagus Problem Dysphagia R13.10 Active Problem 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 Problem Constipation, K59.00 Active 732720 08 unspecified constipation type Problem Small bowel K56.609 Active 12633477 4 obstruction Problem History of Z85.01 Active 678806394 esophageal cancer ALLERGIES No Known Allergies ENCOUNTERS Encounter Location Date Diagnosis [facility] Outpatient [address] [place] [place] [address] 16 Jan, 2021 Dysphagia R13.1 0 ; Bariatric [place], [place] [id number] surgery [address] atus Z98.84 and Personal history of malignant neopla sm of esophagus Z85.[address] Jan, Esophage al dysphagia R13.10 [facility] [address] [place], [place] ; [place] [id number] lower third of e sophagus C15.5 and Small bowel obstruction K56. [address] December, [facility] [address] [place] [address] Mar, Small teetee wel obstruction [facility] [address] [place] K56.609 ; [place] [address] esophageal cance r Z85.01 and Constipation, un specified constipation typ e K59.00 [facility] Inpatient [address] Nov, [place] [id number] [facility] [address] Jul, [facility] [address] [place] [phone] [facility] [address] Jul, Malignan t neoplasm of lower [facility] [address] [place] third of e sophagus C15.5 [address] [facility] Outpatient [address] Jul, [place] [id number] [facility] [address] Jul, Esophage al dysphagia R13.10 [facility] [address] [place] ; Abnormal upper [address] gastrointestinal barium series R93.3 and Gastroesophageal reflux disease, esophag itis presence not spe cified K21.9 [facility] [address] Jul, [facility] [address] [place] [address] [facility] Outpatient [address] Aug, [place] [id number] [facility] ER [address] Apr, My [place] [id number] [facility] ER [address] Nov, [place] Pe[place] [id number] IMMUNIZATIONS Vaccine Route Administration Date Status Influenza Unknown May 30, 2020 Administered Influenza Unknown May 10, 2019 Administered Influenza Unknown May 18, 2018 Administered SOCIAL HISTORY Qualifiers Date Former Smoker REASON FOR REFERRAL FUNCTIONAL STATUS PLAN OF CARE Activity Details Follow Up prn Reason: Future/Pending Procedure UPPER GI ENDOSCOPY BALLOOON DILATION OF ESOPH 20210122 Future/Pending Procedure UPPER GI ENDOSCOPY BALLOOON DILATION OF ESOPH 20180728 VITAL SIGNS Weight 171 lbs 2021-01-22 Weight 168 lbs 2020-03-28 Weight 194 lbs 2018-07-28 Height 68 in 2021-01-22 Height 68 in 2020-03-28 Height 68 in 2018-07-28 BMI 26.00 kg/m2 2021-01-22 BMI 25.54 kg/m2 2020-03-28 BMI 29.49 kg/m2 2018-07-28 Heart Rate 80 /min 2018-07-28 Temperature 98.2 degrees Fahrenheit 2021-01-22 Temperature 97.8 degrees Fahrenheit 2020-03-28 Blood pressure systolic 000 mm Hg 2021-01-22 Blood pressure diastolic 00 mm Hg 2021-01-22 MEDICATIONS Medication Instructions Dosage Frequency Start End Duration Statu s Date Date MiraLax - as directed Active Rosuvastatin Orally Once a 1 tablet 24h 30 day(s) Ac tive Calcium 20 MG day Flonase Allergy Nasally Once a 1 spray in 24h 30 day (s) Active Relief 50 day each MCG/ACT nostril Cetirizine HCl Orally Once a 1 tablet 24h 30 day(s) Active 10 MG day Omeprazole 40 Orally Once a 1 capsule 24h No t-Takin MG day g Lisinopril 10 Orally Once a 1 tablet 24h Act annamarie MG day Docusate Sodium Orally Once a 1 capsule 24h 30 day(s ) Active 100 MG day as needed Omeprazole 40 Orally Once a 1 capsule 24h 30 day(s) Active MG day 30 minutes before morning meal Centrum Silver Active Verapamil HCl Orally once a 2 tablet 24h Act annamarie 240 MG day PROCEDURES Procedure Date Ordered Result Body Site UPPR GI ENDOSCOPY, DIAGNOSIS January 23, 2021 TOBACCO NON-USER January 22, 2021 DOC MEDS VERIFIED W/PT OR RE Mar 28, 2020 FLU IMMUNIZE ORDER/ADMIN Jul 28, 2018 DOC MEDS VERIFIED W/PT OR RE January 22, 2021 UPPER GI ENDOSCOPY, BIOPSY November 25, 2018 BP SCR PRFRM RCMDD DEFIND SCR INTVL January 22, 2021 BMI >=30 CALCUATE W/FOLLOWUP Jul 28, 2018 COLORECTAL CA SCREEN DOC REV Jul 28, 2018 TOBACCO NON-USER Mar 28, 2020 BP SCR PRFRM RCMDD DEFIND SCR INTVL Jul 28, 2018 TOBACCO NON-USER Jul 28, 2018 DOC MEDS VERIFIED W/PT OR RE Jul 28, 2018 BP SCR PRFRM RCMDD DEFIND SCR INTVL Mar 28, 2020 RESULTS Name Result Date Reference Range GI BIOPSY 2018-11-25 G.I. BIOPSY VIRAL CULTURE 2018-11-25 SPECIMEN SOURCE DISTAL ESOPHAGUS ADENOVIRUS CULT SEE NOTE () CYTOMEGALOVIRUS CULTURE SEE NOTE () HSV VZV CULT SEE NOTE () ENTEROVIRUS CULT Test not performed VIRAL RESP CULTURE Test not performed RSV AG Test not performed HSV VZV AG Test not performed ROUTINE CULTURE 2018-11-25 BUN 2018-08-05 BUN 13 9-16 CREATININE 2018-08-05 CREATININE 1.08 0.5-1.4 ESTIMATED GFR > 60 CT ABD & PELVIS WITH CONTRAST 2018-08-13 CT CHEST WITH CONTRAST 2018-08-13 GI BIOPSY 2018-07-30 G.I. BIOPSY CYTOLOGY (NON-RUBBER STAMP ASSEMBLER) 2018-07-30 NON-RUBBER STAMP ASSEMBLER CYTOLOGY REASON FOR VISIT dysphagia,esophageal cancer, Patient presents today for dysphagia, esophageal cancer, Sooner OV, patient presents today for SMALL BOWEL OBSTRUCTIONS, DYSPHAGIA, Send over Contrast, Dysphagia, GERD, abnormal upper GI, PATIENT PRESENTS TODAY FOR esophageal lesions, esophageal lesions Insurance Providers [facility] Member Patient Patient Patient Patient Patient Subscriber Subscriber Subscriber Group Insurance Plan Plan Plan Plan ID Relationship Address Phone Name Date of ID Name Date of No Type Insurance Insurance Insurance Coverage to Subscriber Address Phone Name Dates [employer] [id number] [facility] FU[place] [phone] [id number] [address] [facility] [address] [place] [address]
[2022-06-19 04:33] LABS: Alanine Aminotransferase 15 U/L (0-40); Albumin Level 3.1 g/dL (3.5-5.0); Alkaline Phosphatase 126 U/L (39-117); Anion Gap 14 (12-20); Aspartate Amino Transferase 29 U/L (5-37); Bilirubin Direct < 0.2 mg/dL (0.0-0.5); Bilirubin Total 0.3 mg/dL (0.0-1.0); Blood Urea Nitrogen 8 mg/dL (9-16); Calcium 8.7 mg/dL (8.4-10.2); Carbon Dioxide 21 mmol/L (22-29); Chloride 111 mmol/L (96-108); Creatinine Clr Calc Pharmacy 74.8; Estimated Glomerular Filt Rate > 60; Glucose Random 111 mg/dL (60-115); Potassium 4.4 mmol/L (3.3-5.1); Sodium 142 mmol/L (135-145); Total Protein 6.1 g/dL (6.5-8.0)
[2022-06-19] MEDS: Diatrizoate Meglumine, Sodium 30 ML SOLUTION PO (04:39)
[2022-06-19 05:45] LABS: Lipase 12 U/L (8-78)
[2022-06-19] MEDS: ondansetron HCL 4 MG/2 ML VIAL IVPUSH (07:26)
[2022-06-19] MEDS: Pantoprazole Sodium 40 MG/10 ML VIAL IVPUSH (07:26)
[2022-06-19 08:41] LABS: Appearance Urine Cloudy; Color Urine Yellow; Glucose Urine UA Negative (Negative); Leukocyte Esterase Urine Negative (Negative); Nitrite Urine Negative (Negative); Urine Blood Negative (Negative); Urine Ketones Negative (Negative); Urine Protein Negative (Neg-Trace)
[2022-06-19] MEDS: Morphine Sulfate 4 MG/ML CARTRIDGE IVPUSH ×2 (09:17→12:23)
--- NOTE | 2022-06-19 10:01 | P.CONGS_ITS ---
History of Present Illness Consult details Consult date: 06/19/22 Requesting physician: Van Joshua Narrative: The patient is a 76-year-old gentleman who is accompanied by his . He reports a history of esophageal cancer and is status post gastric pull-up that was done via laparoscopy & thorascopic approach at [facility]. The patient is currently being treated with chemotherapy because of recurrent esophageal cancer. The patient is seen because of vomiting and this is the 3rd bowel obstruction that he has had. In communication with the patient, he notes that he is not told his surgical oncologist at [facility] about 2 of the obstructions and notes that the 1st obstruction that occurred was dealt with at [facility]. Patient denies any pain at this point but is having issues with vomiting. 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 In reviewing records, that the patient's last admission earlier this year here, there was great difficulty in placing a nasogastric tube so I would not endorse placing it if the patient has malignant stricture recurrence. Patient also notes that he had extensive problems with his feeding tube and ultimately, [facility] removed it. I was asked to help direct his care due to the bowel obstruction. Patient was diagnosed June, with poorly differentiated adenocarcinoma. He underwent chemo radiation preoperatively and ultimately underwent an MIS esophageal resection with gastric pull-up by Dr. Aamir Garvey at [facility] on 02/14/2019. In October, he was diagnosed with recurrent adenocarcinoma. The patient is describing a recurrence at the anastomosis as well. However, I cannot locate records on this. In reviewing the EMR, the patient had a J-tube placed in 2019 which the patient stated never worked properly and was ultimately removed. Review of Systems Review of Systems: Yes all other systems are reviewed and are negative Constitutional: Constitutional: Reports as per [facility] Past Medical History Medical History Basal cell carcinoma, scalp/neck Cervical spondylosis Constipation Diverticulosis (~1998) Esophageal adenocarcinoma (~2017) GERD (gastroesophageal reflux disease) History of prostate cancer (~2004) History of small bowel obstruction (~2019) Hypercholesterolemia Hypertension Melanoma Osteoarthritis Personal history of nicotine dependence Shingles Throat mass Vitamin B12 deficiency Family History Family History Son Non-Hodgkin lymphoma Father Prostate cancer Mother No problems noted. Surgical History Surgical History History of appendectomy History of colonoscopy History of esophagectomy (~2018) History of esophagogastroduodenoscopy (EGD) History of hemorrhoidectomy (~1993) History of incisional hernia repair (~2019) History of jejunostomy tube placement (~2018) History of meniscectomy of right knee (~2003) History of prostatectomy (~2004) Social History Social History Household Members: Spouse Housing: Condominium Are you a primary day care provider to a significant other at home: No Do you presently have visiting nurse or other home services: No Alcohol intake: former Patient Tobacco Use Status: Former Tobacco user Years Smoked: 35 Second Hand Smoke Exposure: No Advance Directives: No service: Yes Current occupational status: retired Current occupation: rt handed Meds Allergies Allergy/AdvReac Type Severity Reaction Status Date / Time No Known Allergies Allergy Verified 05/26/22 11:03 [No Known Allergies*] Home Medications Medication Instructions Recorded Confirmed Last Taken Type cetirizine 10 mg capsule (Allergy 10 mg PO DAILY 05/23/20 05/26/22 11/26/21 History Relief (cetirizine)) omeprazole 40 mg capsule,delayed 40 mg PO BID@0630,1630 05/23/20 05/26/22 11/26/21 History release polyethylene glycol 3350 17 17 g PO BEDTIME 05/23/20 05/26/22 11/26/21 History gram/dose oral powder (Miralax) rosuvastatin 20 mg tablet 20 mg PO BEDTIME 05/23/20 05/26/22 11/26/21 History hydrochlorothiazide 12.5 mg tablet 1 tab PO DAILY 11/27/21 05/26/22 11/26/21 History lisinopril 20 mg tablet 1 tab PO DAILY 11/27/21 05/26/22 11/26/21 History multivitamin 5 ml PO DAILY 11/27/21 05/26/22 Unknown History verapamil 240 mg 24 hr 1 cap PO DAILY 11/27/21 05/26/22 11/26/21 History capsule,extended release Physical Exam Vital Signs: Vital Signs: Last Vital Signs Temp 100.3 F 06/19/22 07:12 Pulse 84 06/19/22 07:12 Resp 12 06/19/22 07:12 BP 154/95 H 06/19/22 07:12 Pulse Ox 95 06/19/22 07:12 O2 Del Method 06/19/22 07:12 BMI result Body Mass Index 26.5 The patient is non-toxic & in good spirits NC/AT, PERRLA, EOMI Mood, affect & judgment all appear appropriate Heart is regular, normal S1-S2 no rubs or murmurs Lungs are clear and equal anteriorly with no audible wheezing, rubs or dullness to percussion Abdomen is soft with no demonstrable hernias. No HSM, rebound, rigidity, guarding, masses or bruits are present. No peritoneal sign is present Rectal exam is deferred Skin has decreased turgor and is free of rashes Extremities free of cyanosis clubbing edema Results Labs Result diagrams: 06/19/22 03:59 06/19/22 03:59 Labs: Abnormal lab results 06/19/22 06/19/22 Range/Units 03:59 03:59 RBC 4.05 L (4.60-5.80) X10*6/uL Hgb 13.0 L (14.0-18.0) g/dl Hct 40.7 L (42.0-52.0) % MCV 100.5 H (80.0-98.0) fL Lymph % (Auto) 15.9 L (20-40) % [place] % (Auto) 12.0 H (2-11) % Lymph # (Auto) 0.8 L (1.2-4.9) X10*3/uL Chloride 111 H (96-108) mmol/L Carbon Dioxide 21 L (22-29) mmol/L BUN 8 L (9-16) mg/dL Alkaline Phosphatase 126 H (39-117) U/L Total Protein 6.1 L (6.5-8.0) g/dL Albumin 3.1 L (3.5-5.0) g/dL Short CBC 06/19/22 Range/Units 03:59 WBC 5.3 (4.8-10.8) X10*3/uL Hgb 13.0 L (14.0-18.0) g/dl Hct 40.7 L (42.0-52.0) % Plt Count TNP BMP 06/19/22 03:59 Sodium 142 Potassium 4.4 Chloride 111 H Carbon Dioxide 21 L BUN 8 L Creatinine 0.84 Calcium 8.7 Liver Function 06/19/22 Range/Units 03:59 Total Bilirubin 0.3 (0.0-1.0) mg/dL Direct Bilirubin < 0.2 (0.0-0.5) mg/dL AST 29 (5-37) U/L ALT 15 (0-40) U/L Alkaline Phosphatase 126 H (39-117) U/L Albumin 3.1 L (3.5-5.0) g/dL Urine 06/19/22 Range/Units 08:33 Urine Color Yellow Urine Appearance Cloudy Urine pH 6.0 (5.0-9.0) Ur Specific [place] 1.020 (1.005-1.025) Urine Protein Negative (Neg-Trace) mg/dL Urine Glucose (UA) Negative (Negative) mg/dL All other labs normal. 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 It is unclear to me whether not the patient has intraluminal/anastomotic recurrence or a stricture that is an issue regarding NG placement, so I would not endorse putting one at this point and would communicate with [facility] regarding the complexity of the patient. Given the inability to pass a nasogastric tube in provide decompression/non operative management, the patient is at high risk for aspiration if his vomiting is ongoing. Procedures Date of Service Date of Service: 06/19/22
--- NOTE | 2022-06-19 10:28 | PC.NURSE ---
CALL PLACED TO [facility] DR LEA CHAMBERS [phone] @ REQUEST OF DR GEORGE REVENUE ENFORCEMENT AGENT ANSWERS AND SENDS THIS CALL TO A VOICEMAIL DETAILED MESSAGE LEFT WITH THE ER BACK LINE [phone] THE CALL BACK NUMBER FOR DR GEORGE
--- NOTE | 2022-06-19 12:04 | PC.NURSE ---
@ NOON CALL PLACED TO [facility] PT TX LINE [phone] @ REQUEST OF DR GEORGE PER THE SUGGESTION BY DR ALONZO FOR POSSIBLE TX OF THIS PT COORDINATOR ANSWERS AND STATES THEY ARE CLOSED FOR THIS TYPE OF TX DUE TO CAPACITY OF THEIR HOSPITAL DR GEORGE AWARE
[2022-06-19] MEDS: Metoclopramide HCl 10 MG/2 ML VIAL IVPUSH (12:23)
[2022-06-19] MEDS: Lidocaine HCl 4 % MPF 5 ML AMPUL 3 ML INHALE (13:43)
--- NOTE | 2022-06-19 14:07 | PC.NURSE ---
Nasogastric tube placed by this RN and Dr. Joshua. Pt tolerated procedure well. Has no complaints of pain at this time. Immediate output from tube approx 350mL
--- NOTE | 2022-06-19 17:55 | P.HPHOSP_ITS ---
History of Present Illness Date of Service: 06/19/22 Attending physician on admission: Macey Bowden Chief Complaint: abdominal pain 76-year-old gentleman with past medical history significant for distal esophagectomy with gastric pull-through in 2019 at [facility] due to esophageal cancer, patient also has history of prostate cancer now receiving chemotherapy for recurrence of esophageal cancer, currently chemotherapy is on hold due to peripheral neuropathy, patient is status post 2 episodes of small- bowel obstruction, that resolved with conservative management presented to [facility] with acute onset of mid abdominal crampy pain that started yesterday afternoon, without radiation, no relieving or aggravating factors, overnight patient pain got worsened he was unable to tolerate the pain therefore decided to come to the emergency room patient denies associated fever, chills has had no nausea, vomiting at home but after arrival to the emergency room had 1 episode of vomiting and had a bowel movement as well, CT abdomen and pelvis showed small-bowel obstruction with transition point in the anterior left mid abdomen, patient had NG tube placed by ER physician, chest x-ray showed enteric tube likely within the gastric pull-up, patient was evaluated by General surgery Dr. Card, he recommended communication with the operating surgeon given the complexity of both recurrent esophageal cancer and recurrent bowel obstruction in the setting of complex oncology goal operation and ongoing chemotherapy , ED physician contacted thoracic surgeon at [facility] Dr. Aamir Wakefield he stated if the patient requires surgery for bowel obstruction he needs to be admitted under the general surgeons, however [facility] is close for transfers, NG tube was placed in the emergency room by ED physician 400 cc of yellowish gastric content was aspirated, discussed treatment options with patient since this is a complicated high risk surgery that will involve thoracic surgeon as well as oncologist as per surgical recommendation however patient decided against surgery and wishes to pursue comfort care if surgery is needed therefore patient is being admitted to medical service with conservative management, at present patient denies abdominal pain denies lightheadedness dizziness, no chest pain, no palpitations, no shortness of breath, no weakness, no numbness. Review of Systems Review of Systems: General no headache no dizziness no fever chills. CVS no chest pain, no palpitation. Respiratory no cough no sob no urgency no frequency Skin no rash Neuro both hands and feet neuropathy Yes all other systems are reviewed and are negative [facility] Medical History Basal cell carcinoma, scalp/neck Cervical spondylosis Constipation Diverticulosis (~1998) Esophageal adenocarcinoma (~2017) GERD (gastroesophageal reflux disease) History of prostate cancer (~2004) History of small bowel obstruction (~2019) Hypercholesterolemia Hypertension Melanoma Osteoarthritis Personal history of nicotine dependence Shingles Throat mass Vitamin B12 deficiency Family History Son Non-Hodgkin lymphoma Father Prostate cancer Mother No problems noted. Surgical History History of appendectomy History of colonoscopy History of esophagectomy (~2018) History of esophagogastroduodenoscopy (EGD) History of hemorrhoidectomy (~1993) History of incisional hernia repair (~2019) History of jejunostomy tube placement (~2018) History of meniscectomy of right knee (~2003) History of prostatectomy (~2004) Social History Household Members: [facility] Are you a primary neonatal critical care nurse to a significant other at home: No Do you presently have visiting nurse or other home services: No Alcohol intake: never Patient Tobacco Use Status: Former Tobacco user Years Smoked: 35 Smoked in Last 30 Days: No Second Hand Smoke Exposure: No Use of substances other than those prescribed or required for medical reasons: No Advance Directives: No service: Yes Current occupational status: retired Current occupation: rt handed Meds Allergies Allergy/AdvReac Type Severity Reaction Status Date / Time No Known Allergies Allergy Verified 05/26/22 11:03 [No Known Allergies*] Home Medications Medication Instructions Recorded Confirmed Last Taken Type cetirizine 10 mg capsule (Allergy 10 mg PO DAILY 05/23/20 06/19/22 06/18/22 History Relief (cetirizine)) omeprazole 40 mg capsule,delayed 40 mg PO BID@0630,1630 05/23/20 06/19/22 06/18/22 History release multivitamin 5 ml PO DAILY 11/27/21 06/19/22 06/18/22 History verapamil 240 mg 24 hr 1 cap PO DAILY 11/27/21 06/19/22 06/18/22 History capsule,extended release Physical Exam Vital Signs and Narrative: Vital Signs: Last Vital Signs Temp 98.2 F 06/19/22 14:11 Pulse 88 06/19/22 14:11 Resp 13 06/19/22 14:11 BP 133/86 06/19/22 14:11 Pulse Ox 94 06/19/22 14:11 O2 Del Method 06/19/22 14:11 BMI result Body Mass Index 26.5 Const: Other: General patient awake alert x3 does not appear to be in acute distress, answering questions appropriately. Anicteric sclera Neck no JVD. CVS regular rate rhythm, Respiratory lungs clear to auscultation, no respiratory distress, no wheeze, no rhonchi. Gastrointestinal abdomen soft, nondistended mild tenderness to mid abdomen, no guarding , no rigidity, no peritoneal signs. Extremities no edema. Neuro nonfocal , moving all 4 extremity speech clear. Skin no rash, no lesions Psych appropriate affect Results Labs CBC and Chem 7: 06/19/22 03:59 06/19/22 03:59 Labs: Laboratory Results - last 24 hr 06/19/22 06/19/22 06/19/22 03:59 03:59 03:59 MCV 100.5 H MCH 32.1 MCHC 31.9 RDW 13.7 Plt Count TNP MPV 10.6 Immature Gran % (Auto) 0.2 Neut % (Auto) 69.8 Lymph % (Auto) 15.9 L [place] % (Auto) 12.0 H Eos % (Auto) 1.5 Baso % (Auto) 0.6 Lymph # (Auto) 0.8 L [place] # (Auto) 0.6 Eos # (Auto) 0.1 Baso # (Auto) 0.0 Abs Immat Gran (auto) 0.01 Absolute Neuts (auto) 3.7 Absolute Nucleated RBC 0.000 Nucleated RBC % (auto) 0.0 Smear Tech's Comments VERIFIED Anion Gap 14 Estim Creat Clear Calc 74.8 Estimated GFR > 60 Random Glucose 111 Calcium 8.7 Total Bilirubin 0.3 Direct Bilirubin < 0.2 AST 29 ALT 15 Alkaline Phosphatase 126 H Total Protein 6.1 L Albumin 3.1 L Lipase 12 Urine Color Urine Appearance Urine pH Ur Specific [place] Urine Protein Urine Glucose (UA) Urine Ketones Urine Blood Urine Nitrite Ur Leukocyte Esterase COVID-19 (NUZHAT) Negative COVID-19 Clin Com See Note 06/19/22 08:33 MCV MCH MCHC RDW Plt Count MPV Immature Gran % (Auto) Neut % (Auto) Lymph % (Auto) [place] % (Auto) Eos % (Auto) Baso % (Auto) Lymph # (Auto) [place] # (Auto) Eos # (Auto) Baso # (Auto) Abs Immat Gran (auto) Absolute Neuts (auto) Absolute Nucleated RBC Nucleated RBC % (auto) Smear Tech's Comments Anion Gap Estim Creat Clear Calc Estimated GFR Random Glucose Calcium Total Bilirubin Direct Bilirubin AST ALT Alkaline Phosphatase Total Protein Albumin Lipase Urine Color Yellow Urine Appearance Cloudy Urine pH 6.0 Ur Specific [place] 1.020 Urine Protein Negative Urine Glucose (UA) Negative Urine Ketones Negative Urine Blood Negative Urine Nitrite Negative Ur Leukocyte Esterase Negative COVID-19 (NUZHAT) COVID-19 Clin Com Imaging Radiologist's Impressions: Impressions Abdomen/Pelvis CT 06/19/22 05:47 IMPRESSION: Small bowel obstruction with transition point in the anterior left midabdomen. Fleischner guidelines were followed. Chest X-Ray 06/19/22 15:38 IMPRESSION: Enteric tube likely within the gastric pull-up as described. This critical result was discussed with Dr.Domenick Joshua at 4:35 PM on June 19, 2022 and it was ascertained that the content and urgency of the report was understood at the time of direct communication. Chest X-Ray 06/19/22 16:14 IMPRESSION: Enteric tube likely within the gastric pull-up as described. This critical result was discussed with Dr.Domenick Joshua at 4:35 PM on June 19, 2022 and it was ascertained that the content and urgency of the report was understood at the time of direct communication. 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: Status: Acute Plan 76-year-old gentleman with past medical history significant for recurrent esophageal cancer is status post esophagectomy with gastric pull through in 2019 at [facility], status post J-tube placement at that time that was subsequently removed, also history of prostate cancer, operated remotely, presented to [facility] due to acute onset of abdominal cramping of 24 hour duration associated with nausea vomiting with last bowel movement today in the emergency room CT abdomen consistent with small-bowel obstruction with transition point, patient has been admitted to [facility] twice in the past with similar symptoms and was treated conservatively with NG decompression, bowel rest and IV fluid with good response patient will be admitted to medical service. 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 Brooks. Code status wishes to be full code In my clinical opinion patient needs 2 night inpatient stay due to small-bowel obstruction requiring IV fluids NG decompression and close clinical follow-up Quality Stroke Does the patient have a stroke diagnosis?: No VTE Prior VTE?: No VTE Risk Level:: Medical - moderate - high VTE Device Contraindication: N/A - Device Ordered VTE Drug Contraindication: Treatment Not Indicated
--- NOTE | 2022-06-19 19:14 | PHA.MEDREC ---
Pharmacy Consult ? Medication Reconciliation Pharmacy has completed the medication reconciliation. Patient also states that he takes a stool softener twice daily but doesnt know what
[2022-06-19] MEDS: Lactated Ringers 1,000 ML 100 ML IVCONT (20:07)
--- NOTE | 2022-06-19 23:32 | PC.NURSE ---
Pt settled in bed on overflow unit
[2022-06-20] MEDS: Lactated Ringers 1,000 ML 100 ML IVCONT ×2 (05:22→14:50)
[2022-06-20] MEDS: Pantoprazole Sodium 40 MG/10 ML VIAL IVPUSH (06:01)
--- NOTE | 2022-06-20 08:16 | P.PNGS_ITS ---
Subjective Subjective Date of Service: 06/20/22 Patient reports: feels better Interval history: The patient was admitted here at [facility] because note tertiary care beds were available. An NG was successfully placed in the patient reports his abdominal pain has resolved. While he has not had any flatus nor bowel movement, he feels like he is going to have a bowel movement. He notes that he had a prior bowel movement in the hospital yesterday. Patient relates longstanding history of ongoing heartburn in voiced frustration that he had no idea that his esophageal cancer could possibly return. Physical Exam Vital Signs: Vital Signs: Last Vital Signs Temp 98.2 F 06/19/22 23:54 Pulse 86 06/19/22 23:54 Resp 16 06/19/22 23:54 BP 150/83 H 06/19/22 23:54 Pulse Ox 93 06/19/22 23:54 O2 Del Method 06/19/22 23:54 BMI result Body Mass Index 26.5 Patient is nontoxic His abdomen is less distended and soft with no rebound, rigidity or guarding No tympany, peritoneal irritation to percussion is present Objective Data Active Medications Acetaminophen (Acetaminophen 325 Mg Tablet) 650 mg PO Q6H PRN PRN Reason: Fever Lactated Ringer's (Lr) 1,000 mls @ 100 mls/hr IVCONT .Q10H [facility] Last Admin: 06/20/22 05:22 Dose: 100 mls/hr Documented By: AMY Morphine Sulfate (Morphine Sulfate 4 Mg/Ml Cartridge) 3 mg IVPUSH Q3H PRN; Protocol PRN Reason: Pain, Severe (Pain Scale 7-10) Pantoprazole Sodium (Pantoprazole Sodium 40 Mg/10 Ml Vial) 40 mg IVPUSH DAILY@0630 [facility] Last Admin: 06/20/22 06:01 Dose: 40 mg Documented By: AMY Pharmacy Consult (Consult Rx Perform Med Rec) 1 each MISCELLANE ONCE PRN PRN Reason: Consult order Sodium Chloride (0.9 % Sodium Chloride Flush 3 Ml Syringe) 3 ml IVFLUSH QSHIFT [facility] Last Admin: 06/20/22 07:55 Dose: Not Given Documented By: SHANEKA Non-Admin Reason: IV Running Labs CBC & Chem 7: 06/19/22 03:59 06/19/22 03:59 Labs: Laboratory Results - last 24 hr 06/19/22 08:33 Urine Color Yellow Urine Appearance Cloudy Urine pH 6.0 Ur Specific [place] 1.020 Urine Protein Negative Urine Glucose (UA) Negative Urine Ketones Negative Urine Blood Negative Urine Nitrite Negative Ur Leukocyte Esterase Negative Procedures Date of Service Date of Service: 06/20/22 Progress Note: A&P Assessment and plan (1) 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 The patient candidly notes that he was apprised that it went down because there was so much difficulty last time. Patient should have an endoscopy to assess this and has not had follow-up with his surgeon. Patient is clinically improved at this time with nasogastric decompression. Continue NG until flatus. The patient notes a preference to stay more locally of he needs to go to a tertiary care center. I am sending a copy of this note to his oncologist to help facilitate patient's request. Time Spent With Patient Time: Total time spent is greater than 50% in coordination of care (as documented) at patient's floor/unit and/or counseling patient: Quality Stroke Does the patient have a stroke diagnosis?: No VTE Prior VTE?: No VTE Risk Level:: Medical - moderate - high VTE Device Contraindication: N/A - Device Ordered VTE Drug Contraindication: Treatment Not Indicated
[2022-06-20 08:20] VITALS: BP 133/72; PULSE 78; RESP 16; O2SAT 93
--- NOTE | 2022-06-20 09:25 | MHC.CM.PN ---
PT REPORTS HE LIVES WITH [facility] AND IS INDEPENDENT WITH CARE PT DENIES USE OF DME OR HOME SERVICES PT IS [place] AND HAS HAD ONE BOOSTER HCP ON FILE PCP: EDGARD MARCELINO [facility]MM DELIVERED, COPY SENT TO [facility] CURRENT DC PLAN IS HOME WITH NO SERVICES VS HOME WITH [facility] TO TRANSPORT
--- NOTE | 2022-06-20 11:36 | PC.NURSE ---
Dr. Bowden instructed that she does not want this patient on a [facility] hold
[2022-06-20 16:00] VITALS: BP 146/77; PULSE 66; RESP 16; TEMP 36.6; O2SAT 94
--- NOTE | 2022-06-20 16:15 | P.PNIM_ITS ---
Subjective Subjective Date of Service: 06/20/22 Interval History: Patient awake alert, denies abdominal pain, NG drainage 325 in last 9 hours, patient offers no other complaints of headache dizziness, no fevers no chills no nausea, no flatus , had 1 bowel movement in ER soon after arrival no bowel movement since. Review of Systems [employer] no headache no dizziness CVS no chest pain, no palpitation no urgency, no frequency Review of Systems: Yes all other systems are reviewed and are negative Physical Exam Vital Signs: Vital Signs: Last Vital Signs Temp 98.2 F 06/19/22 23:54 Pulse 78 06/20/22 08:20 Resp 16 06/20/22 08:20 BP 133/72 06/20/22 08:20 Pulse Ox 93 06/20/22 08:20 O2 Del Method 06/20/22 08:20 BMI result Body Mass Index 26.5 Const: Other: General patient awake alert x3 does not appear to be in acute distress, answering questions appropriately. Anicteric sclera? Neck no JVD. CVS? regular rate rhythm, Respiratory lungs clear to auscultation, no respiratory distress, no wheeze, no rhonchi. Gastrointestinal abdomen soft, non distended , nontender, no guarding , no rigidity, no peritoneal signs, positive bowel sounds. Extremities no edema. Neuro nonfocal , moving all 4 extremity speech clear. Skin no rash, no lesions Psych appropriate affect Objective Data Active Medications Acetaminophen (Acetaminophen 325 Mg Tablet) 650 mg PO Q6H PRN PRN Reason: Fever Lactated Ringer's (Lr) 1,000 mls @ 100 mls/hr IVCONT .Q10H [facility] Last Admin: 06/20/22 14:50 Dose: 100 mls/hr Documented By: SHANEKA Morphine Sulfate (Morphine Sulfate 4 Mg/Ml Cartridge) 3 mg IVPUSH Q3H PRN; Protocol PRN Reason: Pain, Severe (Pain Scale 7-10) Pantoprazole Sodium (Pantoprazole Sodium 40 Mg/10 Ml Vial) 40 mg IVPUSH DAILY@0630 [facility] Last Admin: 06/20/22 06:01 Dose: 40 mg Documented By: AMY Pharmacy Consult (Consult Rx Perform Med Rec) 1 each MISCELLANE ONCE PRN PRN Reason: Consult order Sodium Chloride (0.9 % Sodium Chloride Flush 3 Ml Syringe) 3 ml IVFLUSH QSHIFT [facility] Last Admin: 06/20/22 14:56 Dose: Not Given Documented By: SHANEKA Non-Admin Reason: IV Running Labs CBC & Chem 7: 06/19/22 03:59 06/19/22 03:59 Assessment and Plan (1) 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: Status: Acute (2) SBO (small bowel obstruction): Status: Acute Plan 76-year-old gentleman with past medical history significant for recurrent esophageal cancer is status post esophagectomy with gastric pull through in 2019 at [facility], status post J-tube placement at that time that was subsequently removed, also history of prostate cancer, operated remotely, presented to [facility] due to acute onset of abdominal cramping of 24 hour duration associated with nausea vomiting with last bowel movement today in the emergency room CT abdomen consistent with small-bowel obstruction with transition point, patient has been admitted to [facility] twice in the past with similar symptoms and was treated conservatively with NG decompression, bowel rest and IV fluid with good response patient will be admitted to medical service. Small-bowel obstruction likely due to adhesions no abdominal pain, denies nausea Patient is high risk for surgery, patient has declined surgical treatment and wishes to be treated conservatively continue NG tube, NPO, IV fluids, will clamp NG tube once less drainage for 4 hours, and check residuals if less than 100 then can remove the tube and will start patient on clear liquid diet If unable to remove NG tube and patient remains NPO for greater than 3 days will consider PPN Continue analgesics, antiemetics Being followed by General surgery Monitor electrolytes, CBC Peripheral neuropathy due to chemotherapy hold gabapentin Hypertension BP stable , will resume verapamil 240 mg extended release, when able to take by mouth, at present will place on as needed IV Lopressor. Recurrent esophageal cancer outpatient follow-up with Dr. Brooks. Code status? full code In my clinical opinion patient needs continued inpatient stay due to small-bowel obstruction requiring IV fluids NG decompression and close clinical follow-up Quality Stroke Does the patient have a stroke diagnosis?: No VTE Prior VTE?: No VTE Risk Level:: Medical - moderate - high VTE Device Contraindication: N/A - Device Ordered VTE Drug Contraindication: Treatment Not Indicated
--- NOTE | 2022-06-20 17:21 | PC.NURSE ---
Patient denied oxygen at 2LPM
--- NOTE | 2022-06-20 18:43 | PC.NURSE ---
Small amount of bright red blood in NG tube, patient requested to stop suction and discuss with MD. Paged Dr Bowden. Denies pain, reports there was some discomfort upon insertion. NO bloody discharge noted around nare.
[2022-06-21] VITALS: BP 145/80; PULSE 70; RESP 16; TEMP 37; O2SAT 92
[2022-06-21] MEDS: Lactated Ringers 1,000 ML 100 ML IVCONT ×3 (00:24→13:51)
[2022-06-21] MEDS: Pantoprazole Sodium 40 MG/10 ML VIAL IVPUSH (05:58)
[2022-06-21 05:59] LABS: Hematocrit 33.7 % (42.0-52.0); Hemoglobin 10.7 g/dl (14.0-18.0); Mean Corpuscular HGB Conc 31.8 g/dl (31.0-36.0); Mean Corpuscular Volume 97.7 fL (80.0-98.0); Mean Platelet Volume 10.1 fL (9.4-12.4); Platelet Count 120 X10*3/uL (160-400); Red Blood Count 3.45 X10*6/uL (4.60-5.80); Red Cell Distribution Width 13.2 % (11.0-16.0); White Blood Count 3.7 X10*3/uL (4.8-10.8)
[2022-06-21 06:14] LABS: Anion Gap 13 (12-20); Blood Urea Nitrogen 10 mg/dL (9-16); Calcium 8.2 mg/dL (8.4-10.2); Carbon Dioxide 24 mmol/L (22-29); Chloride 108 mmol/L (96-108); Creatinine Clr Calc Pharmacy 91.1; Estimated Glomerular Filt Rate > 60; Glucose Random 69 mg/dL (60-115); Potassium 3.8 mmol/L (3.3-5.1); Sodium 141 mmol/L (135-145)
[2022-06-21 07:38] VITALS: BP 122/77; PULSE 73; RESP 16; TEMP 37; O2SAT 94
--- NOTE | 2022-06-21 08:23 | PM.PNGS ---
Subjective Subjective Date of Service: 06/23/22 Interval history: feels much better denies abdominal pain passing flatus scanty output from the NG tube Physical Exam Vital Signs: Vital Signs: Last Vital Signs Temp 98.6 F 06/21/22 07:38 Pulse 73 06/21/22 07:38 Resp 16 06/21/22 07:38 BP 122/77 06/21/22 07:38 Pulse Ox 94 06/21/22 07:38 O2 Del Method 06/21/22 07:38 BMI result Body Mass Index 26.5 Const: General: comfortable and no acute distress Resp: Effort & Inspection: normal respiratory effort Cardio: Rate: regular rate GI: Other: soft, nondistended, nontender, no guarding or rebound Objective Data Active Medications Acetaminophen (Acetaminophen 325 Mg Tablet) 650 mg PO Q6H PRN PRN Reason: Fever Lactated Ringer's (Lr) 1,000 mls @ 100 mls/hr IVCONT .Q10H [facility] Last Admin: 06/21/22 00:24 Dose: 100 mls/hr Documented By: KRISTY Metoprolol Tartrate (Metoprolol Tartrate 5 Mg/5 Ml Vial) 2.5 mg IVPUSH Q6H PRN PRN Reason: SBP > 160 Morphine Sulfate (Morphine Sulfate 4 Mg/Ml Cartridge) 3 mg IVPUSH Q3H PRN; Protocol PRN Reason: Pain, Severe (Pain Scale 7-10) Pantoprazole Sodium (Pantoprazole Sodium 40 Mg/10 Ml Vial) 40 mg IVPUSH DAILY@0630 [facility] Last Admin: 06/21/22 05:58 Dose: 40 mg Documented By: KRISTY Pharmacy Consult (Consult Rx Perform Med Rec) 1 each MISCELLANE ONCE PRN PRN Reason: Consult order Sodium Chloride (0.9 % Sodium Chloride Flush 3 Ml Syringe) 3 ml IVFLUSH QSHIFT [facility] Last Admin: 06/21/22 07:33 Dose: Not Given Documented By: CARRILLO Non-Admin Reason: IV Running Labs CBC & Chem 7: 06/22/22 05:13 06/22/22 05:13 Labs: Laboratory Results - last 24 hr 06/21/22 06/21/22 05:34 05:34 MCV 97.7 MCH 31.0 MCHC 31.8 RDW 13.2 Plt Count 120 L D MPV 10.1 Absolute Nucleated RBC 0.000 Nucleated RBC % (auto) 0.0 Anion Gap 13 Estim Creat Clear Calc 91.1 Estimated GFR > 60 Random Glucose 69 Calcium 8.2 L Procedures Date of Service Date of Service: 06/21/22 Progress Note: A&P Assessment and plan (1) SBO (small bowel obstruction): Status: Acute Assessment and Plan: symptoms have resolved plan to remove NG tube today okay to have sips of clear liquids after NG tube removal abdominal exam is very benign he is asymptomatic with regards to his abdomen Time Spent With Patient Time: Total time spent is greater than 50% in coordination of care (as documented) at patient's floor/unit and/or counseling patient: Quality Stroke Does the patient have a stroke diagnosis?: No VTE Prior VTE?: No VTE Risk Level:: Medical - moderate - high VTE Device Contraindication: N/A - Device Ordered VTE Drug Contraindication: Treatment Not Indicated
--- NOTE | 2022-06-21 10:55 | HO.PM.IMPN ---
Subjective Subjective Date of Service: 06/21/22 Interval History: Patient seen and examined at bedside. He is feeling significantly better. He reports that he had a small bowel movement this morning. He has been passing gas. He was seen by surgery with a plan to removed the NG tube later in the afternoon with a plan for small clear liquids and advanced as tolerated patient denies any chest pain, no shortness of breath, denies any abdominal pain, no urinary symptoms and no lower extremity edema. patient does report pins and needles in his hands and feet that are bothering him a lot more than usual and would like his medications restarted Review of Systems Review of Systems: Yes all other systems are reviewed and are negative Physical Exam Vital Signs: Vital Signs: Last Vital Signs Temp 98.6 F 06/21/22 07:38 Pulse 73 06/21/22 07:38 Resp 16 06/21/22 07:38 BP 122/77 06/21/22 07:38 Pulse Ox 94 06/21/22 07:38 O2 Del Method 06/21/22 07:38 BMI result Body Mass Index 26.5 Const: Other: Alert oriented, no acute distress Resp: Other: lungs clear to auscultation bl Cardio: Other: normal rate and rhythm GI: Other: abdomen is soft, nontender on palpation, normal bowel sounds Extrem: Other: no lower extremity edema Objective Data Active Medications Acetaminophen (Acetaminophen 325 Mg Tablet) 650 mg PO Q6H PRN PRN Reason: Fever Lactated Ringer's (Lr) 1,000 mls @ 100 mls/hr IVCONT .Q10H [facility] Last Admin: 06/21/22 00:24 Dose: 100 mls/hr Documented By: KRISTY Metoprolol Tartrate (Metoprolol Tartrate 5 Mg/5 Ml Vial) 2.5 mg IVPUSH Q6H PRN PRN Reason: SBP > 160 Morphine Sulfate (Morphine Sulfate 4 Mg/Ml Cartridge) 3 mg IVPUSH Q3H PRN; Protocol PRN Reason: Pain, Severe (Pain Scale 7-10) Pantoprazole Sodium (Pantoprazole Sodium 40 Mg/10 Ml Vial) 40 mg IVPUSH DAILY@0630 [facility] Last Admin: 06/21/22 05:58 Dose: 40 mg Documented By: KRISTY Pharmacy Consult (Consult Rx Perform Med Rec) 1 each MISCELLANE ONCE PRN PRN Reason: Consult order Sodium Chloride (0.9 % Sodium Chloride Flush 3 Ml Syringe) 3 ml IVFLUSH QSHIFT [facility] Last Admin: 06/21/22 07:33 Dose: Not Given Documented By: CARRILLO Non-Admin Reason: IV Running Labs CBC & Chem 7: 06/21/22 05:34 06/21/22 05:34 Labs: Laboratory Results - last 24 hr 06/21/22 06/21/22 05:34 05:34 MCV 97.7 MCH 31.0 MCHC 31.8 RDW 13.2 Plt Count 120 L D MPV 10.1 Absolute Nucleated RBC 0.000 Nucleated RBC % (auto) 0.0 Anion Gap 13 Estim Creat Clear Calc 91.1 Estimated GFR > 60 Random Glucose 69 Calcium 8.2 L Assessment and Plan (1) SBO (small bowel obstruction): Status: Acute (2) 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, status post J-tube placement at that time that was subsequently removed, also history of prostate cancer, operated remotely, presented to [facility] with abdominal pain nausea and vomiting and diagnosed with small-bowel obstruction treated conservatively with NG decompression, bowel rest and IV fluid with good response patient will be admitted to medical service. # Small-bowel obstruction likely due to adhesions - seems to have resolved - no abdominal pain at this time, denies nausea - had a BM last night with flatus - patient was seen by General surgery this morning, with plan to remove NG tube - continue IV fluids - plan for clear liquids this afternoon - Continue analgesics- switch to oral, antiemetics - Being followed by General surgery - Monitor electrolytes, CBC # Peripheral neuropathy due to chemotherapy - restart gabapentin # Hypertension - BP stable , - will resume verapamil 240 mg extended release no other patient able to take by mouth medications # Recurrent esophageal cancer outpatient follow-up with Dr. Brooks. Code status? full code In my clinical opinion patient needs continued inpatient stay due to small-bowel obstruction requiring IV fluids, with slow recovery possible discharge in a.m. if tolerating p.o. intake Quality Stroke Does the patient have a stroke diagnosis?: No VTE Prior VTE?: No VTE Risk Level:: Medical - moderate - high VTE Device Contraindication: N/A - Device Ordered VTE Drug Contraindication: Treatment Not Indicated
[2022-06-21 12:09] VITALS: BP 147/86; PULSE 66; RESP 17; TEMP 36.4; O2SAT 97
[2022-06-21] MEDS: Gabapentin 300 MG CAPSULE PO (12:19)
[2022-06-21 15:05] VITALS: BP 157/82; PULSE 76; RESP 18; TEMP 36.2; O2SAT 97
[2022-06-21 19:05] VITALS: BP 137/74; PULSE 77; RESP 18; TEMP 36.4; O2SAT 97
[2022-06-22] VITALS: BP 130/63; PULSE 60; RESP 16; TEMP 36.8; O2SAT 95
[2022-06-22 03:09] VITALS: BP 135/70; PULSE 57; RESP 14; TEMP 36.6; O2SAT 92
[2022-06-22 05:33] LABS: Imm Gran Abs Auto 0.01 X10*3/uL (0.00-0.03); Imm Gran Pct Auto 0.3 % (0.0-0.4); Mean Corpuscular HGB Conc 32.5 g/dl (31.0-36.0); PLT CLUMP 1; SCAN SMEAR FLAG 1
[2022-06-22 05:35] LABS: Basophils Percent Auto 0.5 % (0-2); Eosinophils Absolute Auto 0.1 X10*3/uL (0.0-0.4); Eosinophils Percent Auto 3.5 % (0-4); Hemoglobin 10.4 g/dl (14.0-18.0); Lymphocytes Percent Auto 26.4 % (20-40); Mean Corpuscular Hemoglobin 31.4 pg (27.0-33.0); Mean Corpuscular Volume 96.7 fL (80.0-98.0); Mean Platelet Volume 9.7 fL (9.4-12.4); Monocytes Absolute Auto 0.5 X10*3/uL (0.1-1.2); Monocytes Percent Auto 13.9 % (2-11); Neutrophils Absolute Auto 2.1 x10*3/uL (2.0-8.3); Neutrophils Percent Auto 55.4 % (45-73); Red Blood Count 3.31 X10*6/uL (4.60-5.80); Red Cell Distribution Width 12.9 % (11.0-16.0)
[2022-06-22 05:36] LABS: MANUAL DIFF FLAG NO; Platelet Count 129 X10*3/uL (160-400); White Blood Count 3.8 X10*3/uL (4.8-10.8)
[2022-06-22 05:48] LABS: Anion Gap 14 (12-20); Blood Urea Nitrogen 6 mg/dL (9-16); Calcium 8.3 mg/dL (8.4-10.2); Carbon Dioxide 25 mmol/L (22-29); Chloride 109 mmol/L (96-108); Creatinine Clr Calc Pharmacy 91.1; Estimated Glomerular Filt Rate > 60; Glucose Random 97 mg/dL (60-115); Potassium 3.6 mmol/L (3.3-5.1); Sodium 144 mmol/L (135-145)
[2022-06-22] MEDS: Pantoprazole Sodium 40 MG/10 ML VIAL IVPUSH (06:07)
[2022-06-22 07:24] VITALS: BP 146/67; PULSE 54; RESP 18; TEMP 36.1; O2SAT 96
[2022-06-22] MEDS: VerapamiL HCL SR 240 MG TABLET.ER PO (07:33)
[2022-06-22] MEDS: 0.9 % Sodium Chloride Flush 3 ML SYRINGE IVFLUSH ×3 (07:33→20:54)
[2022-06-22] MEDS: Gabapentin 300 MG CAPSULE PO (07:33)
--- NOTE | 2022-06-22 07:43 | P.PNIM_ITS ---
Subjective Subjective Date of Service: 06/22/22 Interval History: patient seen and examined at bedside. He is tolerating his full liquid diet, with no abdominal pain, no nausea or vomiting. Has continued to pass flatus and has had soft bowel movements. Denies no chest pain, no shortness of breath, no palpitations, no urinary symptoms. No lower extremity edema. He is eager to advance his diet and try regular food Review of Systems Review of Systems: Yes all other systems are reviewed and are negative Physical Exam Vital Signs: Vital Signs: Last Vital Signs Temp 96.9 F 06/22/22 07:24 Pulse 54 06/22/22 07:24 Resp 18 06/22/22 07:24 BP 146/67 H 06/22/22 07:24 Pulse Ox 96 06/22/22 07:24 O2 Del Method 06/22/22 07:24 BMI result Body Mass Index 26.5 Const: Other: Alert oriented, no acute distress Resp: Other: lungs clear to auscultation bl Cardio: Other: normal rate and rhythm GI: Other: abdomen is soft, nontender on palpation, normal bowel sounds Extrem: Other: no lower extremity edema Objective Data Active Medications Acetaminophen (Acetaminophen 325 Mg Tablet) 650 mg PO Q6H PRN PRN Reason: Fever Gabapentin (Gabapentin 300 Mg Capsule) 300 mg PO DAILY [facility] Last Admin: 06/22/22 07:33 Dose: 300 mg Documented By: CARLTON Metoprolol Tartrate (Metoprolol Tartrate 5 Mg/5 Ml Vial) 2.5 mg IVPUSH Q6H PRN PRN Reason: SBP > 160 Oxycodone HCl (Oxycodone Hcl Immed Release 5 Mg Tablet) 5 mg PO Q4H PRN PRN Reason: Pain, Severe (Pain Scale 7-10) Pantoprazole Sodium (Pantoprazole Sodium 40 Mg/10 Ml Vial) 40 mg IVPUSH DAILY@0630 [facility] Last Admin: 06/22/22 06:07 Dose: 40 mg Documented By: KRISTY Pharmacy Consult (Consult Rx Perform Med Rec) 1 each MISCELLANE ONCE PRN PRN Reason: Consult order Sodium Chloride (0.9 % Sodium Chloride Flush 3 Ml Syringe) 3 ml IVFLUSH QSHIFT [facility] Last Admin: 06/22/22 07:33 Dose: 3 ml Documented By: CARLTON Verapamil HCl (Verapamil Hcl Sr 240 Mg Tablet.Er) 240 mg PO DAILY [facility]; Protocol Last Admin: 06/22/22 07:33 Dose: 240 mg Documented By: CARLTON Labs CBC & Chem 7: 06/22/22 05:13 06/22/22 05:13 Labs: Laboratory Results - last 24 hr 06/22/22 06/22/22 05:13 05:13 MCV 96.7 MCH 31.4 MCHC 32.5 RDW 12.9 Plt Count 129 L MPV 9.7 Immature Gran % (Auto) 0.3 Neut % (Auto) 55.4 Lymph % (Auto) 26.4 [place] % (Auto) 13.9 H Eos % (Auto) 3.5 Baso % (Auto) 0.5 Lymph # (Auto) 1.0 L [place] # (Auto) 0.5 Eos # (Auto) 0.1 Baso # (Auto) 0.0 Abs Immat Gran (auto) 0.01 Absolute Neuts (auto) 2.1 Absolute Nucleated RBC 0.000 Nucleated RBC % (auto) 0.0 Anion Gap 14 Estim Creat Clear Calc 91.1 Estimated GFR > 60 Random Glucose 97 Calcium 8.3 L Assessment and Plan (1) SBO (small bowel obstruction): Status: Acute (2) 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: Status: Acute Plan this is a 76-year-old gentleman with past medical history significant for recurrent esophageal cancer is status post esophagectomy with gastric pull through in 2019 at [facility], status post J-tube placement at that time that was subsequently removed, also history of prostate cancer, operated remotely, presented to [facility] with abdominal pain nausea and vomiting and diagnosed with small-bowel obstruction treated conservatively with NG decompression, bowel rest and IV fluid with good response patient will be ad mitted to medical service. # Small-bowel obstruction likely due to adhesions - resolved - no abdominal pain, no nausea vomiting - multiple BMs since yesterday - tolerated liquid diet - ill advance diet to regular bland - DC IVF - DC analgesics - Being followed by General surgery - Monitor electrolytes, CBC - plan for discharge in AM if able to tolerate regular diet # Peripheral neuropathy due to chemotherapy - restart gabapentin # Hypertension - BP stable , - continue verapamil # Recurrent esophageal cancer outpatient follow-up with Dr. Brooks. Code status? full code In my clinical opinion patient needs continued inpatient stay due to small-bowel obstruction requiring IV fluids, with slow recovery possible discharge in a.m. if tolerating regular diet Quality Stroke Does the patient have a stroke diagnosis?: No VTE Prior VTE?: No VTE Risk Level:: Medical - moderate - high VTE Device Contraindication: N/A - Device Ordered VTE Drug Contraindication: Treatment Not Indicated
[2022-06-22 08:24] LABS: Ferritin 277 ng/mL (20-250)
[2022-06-22 08:52] LABS: Folate 16.4 ng/mL (> or = 4.0); Vitamin B12 520 pg/mL (200-900)
--- NOTE | 2022-06-22 09:55 | PM.PNGS ---
Subjective Subjective Date of Service: 06/22/22 Interval history: feels well denies abdominal pain NG tube removed yesterday tolerating clear liquids passing flatus Physical Exam Vital Signs: Vital Signs: Last Vital Signs Temp 96.9 F 06/22/22 07:24 Pulse 54 06/22/22 07:24 Resp 18 06/22/22 07:24 BP 146/67 H 06/22/22 07:24 Pulse Ox 96 06/22/22 07:24 O2 Del Method 06/22/22 07:24 BMI result Body Mass Index 26.5 Const: General: comfortable and no acute distress Resp: Effort & Inspection: normal respiratory effort Cardio: Rate: regular rate GI: Palpation (GI): Soft to palpation, not firm and nontender Objective Data Active Medications Acetaminophen (Acetaminophen 325 Mg Tablet) 650 mg PO Q6H PRN PRN Reason: Fever Gabapentin (Gabapentin 300 Mg Capsule) 300 mg PO DAILY [facility] Last Admin: 06/22/22 07:33 Dose: 300 mg Documented By: CARLTON Metoprolol Tartrate (Metoprolol Tartrate 5 Mg/5 Ml Vial) 2.5 mg IVPUSH Q6H PRN PRN Reason: SBP > 160 Oxycodone HCl (Oxycodone Hcl Immed Release 5 Mg Tablet) 5 mg PO Q4H PRN PRN Reason: Pain, Severe (Pain Scale 7-10) Pantoprazole Sodium (Pantoprazole Sodium 40 Mg/10 Ml Vial) 40 mg IVPUSH DAILY@0630 [facility] Last Admin: 06/22/22 06:07 Dose: 40 mg Documented By: KRISTY Pharmacy Consult (Consult Rx Perform Med Rec) 1 each MISCELLANE ONCE PRN PRN Reason: Consult order Sodium Chloride (0.9 % Sodium Chloride Flush 3 Ml Syringe) 3 ml IVFLUSH QSHIFT [facility] Last Admin: 06/22/22 07:33 Dose: 3 ml Documented By: CARLTON Verapamil HCl (Verapamil Hcl Sr 240 Mg Tablet.Er) 240 mg PO DAILY [facility]; Protocol Last Admin: 06/22/22 07:33 Dose: 240 mg Documented By: CARLTON Labs CBC & Chem 7: 06/22/22 05:13 06/22/22 05:13 Labs: Laboratory Results - last 24 hr 06/22/22 06/22/22 06/22/22 05:13 05:13 05:13 MCV 96.7 MCH 31.4 MCHC 32.5 RDW 12.9 Plt Count 129 L MPV 9.7 Immature Gran % (Auto) 0.3 Neut % (Auto) 55.4 Lymph % (Auto) 26.4 [place] % (Auto) 13.9 H Eos % (Auto) 3.5 Baso % (Auto) 0.5 Lymph # (Auto) 1.0 L [place] # (Auto) 0.5 Eos # (Auto) 0.1 Baso # (Auto) 0.0 Abs Immat Gran (auto) 0.01 Absolute Neuts (auto) 2.1 Absolute Nucleated RBC 0.000 Nucleated RBC % (auto) 0.0 Anion Gap 14 Estim Creat Clear Calc 91.1 Estimated GFR > 60 Random Glucose 97 Calcium 8.3 L Ferritin 277 H Vitamin B12 520 Folate 16.4 Procedures Date of Service Date of Service: 06/22/22 Progress Note: A&P Assessment and plan (1) SBO (small bowel obstruction): Status: Acute Assessment and Plan: symptoms completely resolved tolerating clear liquids - okay to advance slowly as tolerated likely from postop adhesions rest of management as per hospitalist service patient has metastatic disease Time Spent With Patient Time: Total time spent is greater than 50% in coordination of care (as documented) at patient's floor/unit and/or counseling patient: Quality Stroke Does the patient have a stroke diagnosis?: No VTE Prior VTE?: No VTE Risk Level:: Medical - moderate - high VTE Device Contraindication: N/A - Device Ordered VTE Drug Contraindication: Treatment Not Indicated
[2022-06-22 14:54] VITALS: BP 109/64; PULSE 67; RESP 17; TEMP 36.2; O2SAT 97
[2022-06-22 20:16] VITALS: BP 136/69; PULSE 57; RESP 18; TEMP 36.5; O2SAT 94
[2022-06-23] VITALS: BP 145/68; PULSE 57; RESP 16; TEMP 36.6; O2SAT 93
[2022-06-23] MEDS: Pantoprazole Sodium 40 MG/10 ML VIAL IVPUSH (06:17)
[2022-06-23 07:09] VITALS: BP 158/78; PULSE 56; RESP 18; TEMP 36.8; O2SAT 95
[2022-06-23] MEDS: Gabapentin 300 MG CAPSULE PO (07:30)
[2022-06-23] MEDS: 0.9 % Sodium Chloride Flush 3 ML SYRINGE IVFLUSH (07:30)
--- NOTE | 2022-06-23 11:36 | MHC.CM.PN ---
PER HOSPITALIST PT MEDICALLY CLEARED FOR D/C TODAY HOME NO SERVICES W/ FOR TRANSPORT HOME.
--- NOTE | 2022-06-23 11:52 | P.DS_ITS ---
DS: Providers Provider Date of Service: 06/23/22 Date of admission: 06/19/22 18:27 Primary care physician: Matthew Hirsch DO Consults: 06/19/22 12:31 Consult to Gastroenterology Stat Consulting Provider: Tea Kc Reason for consultation: Consult for NG tube placement in patient with esophagectomy and stomach pul Has provider been notified: Yes 06/20/22 07:36 Consult to General Surgery Routine Consulting Provider: Jesus Card Reason for consultation: sbo Has provider been notified: No DS: Diagnosis Discharge Diagnosis (1) SBO (small bowel obstruction): Status: Acute DS: Summary Hospital Course Hospital Course: History of presenting illness Chief Complaint: abdominal pain 76-year-old gentleman with past medical history significant for distal esophagectomy with gastric pull-through in 2019 at [facility] due to esophageal cancer, patient also has history of prostate cancer now receiving chemotherapy for recurrence of esophageal cancer, currently chemotherapy is on hold due to peripheral neuropathy, patient is status post 2 episodes of small- bowel obstruction, that resolved with conservative management presented to [facility] with acute onset of mid abdominal crampy pain that started yesterday afternoon, without radiation, no relieving or aggravating factors, overnight patient pain got worsened he was unable to tolerate the pain therefore decided to come to the emergency room patient denies associated fever, chills has had no nausea, vomiting at home but after arrival to the emergency room had 1 episode of vomiting and had a bowel movement as well, CT abdomen and pelvis showed small-bowel obstruction with transition point in the anterior left mid abdomen, patient had NG tube placed by ER physician, chest x-ray showed enteric tube likely within the gastric pull-up, patient was evaluated by General surgery Dr. Card, he recommended communication with the operating surgeon given the complexity of both recurrent esophageal cancer and recurrent bowel obstruction in the setting of complex oncology goal operation and ongoing chemotherapy , ED physician contacted thoracic surgeon at [facility] Dr. Aamir Wakefield he stated if the patient requires surgery for bowel obstruction he needs to be admitted under the general surgeons, however [facility] is close for transfers, NG tube was placed in the emergency room by ED physician 400 cc of yellowish gastric content was aspirated, discussed treatment options with patient since this is a complicated high risk surgery that will involve thoracic surgeon as well as oncologist as per surgical recommendation however patient decided against surgery and wishes to pursue comfort care if surgery is needed therefore patient is being admitted to medical service with conservative management, at present patient denies abdominal pain denies lightheadedness dizziness, no chest pain, no palpitations, no shortness of breath, no weakness, no numbness. Hospital course SBO 76-year-old gentleman with past medical history significant for recurrent esophageal cancer is status post esophagectomy with gastric pull through in 2019 at [facility], status post J-tube placement at that time that was subsequently removed, also history of prostate cancer, operated remotely, presented? to [facility] with abdominal pain nausea and vomiting and diagnosed with small-bowel obstruction treated conservatively with NG decompression, bowel rest and IV fluid with good response , subsequently NG was removed, patient diet was gradually advanced, since patient passing flatus and having bowel movements with no recurrent nausea vomiting or abdominal pain he is being discharged home, or home medications have been resumed likely bowel obstruction was related to adhesions patient was followed closely by General surgery and they agreed with treatment plan Peripheral neuropathy due to chemotherapy recommend to continue gabapentin Hypertension - BP stable ,continue verapamil Recurrent esophageal cancer outpatient follow-up with Dr. Brooks. Time Spent with Patient Time attestation: Total time spent providing and/or coordinating discharge services: Discharge coordination time: Greater than 30 minutes Quality: Safe Use of Opioids Does Pt have an Active Cancer Diagnosis on the Problem List?: No Quality: Stroke Does the patient have a stroke diagnosis?: No Physical Exam Vital Signs: Vital Signs: Last Vital Signs Temp 98.2 F 06/23/22 07:09 Pulse 56 06/23/22 07:09 Resp 18 06/23/22 07:09 BP 158/78 H 06/23/22 07:09 Pulse Ox 95 06/23/22 07:09 O2 Del Method 06/23/22 07:09 BMI result Body Mass Index 26.5 Const: Other: General patient awake alert x3 no acute distress Anicteric sclera? Neck no JVD. CVS? regular rate rhythm, Respiratory lungs clear to auscultation, no respiratory distress, no wheeze, no rhonchi. Gastrointestinal abdomen soft, non distended , nontender, no guarding , no rigidity, no peritoneal signs, positive bowel sounds. Extremities no edema. Neuro nonfocal , moving all 4 extremity speech clear. Skin no rash, no lesions Psych appropriate affect DS: Data Data Completed and Pending Completed studies during hospitalization [Text1]: Procedures Drainage of Mediastinum, Percutaneous Approach, Diagnostic (11/27/21) Excision of Mediastinum, Percutaneous Approach, Diagnostic (11/27/21) Discharge Plan Discharge Anticipated Discharge Date/Time: 06/23/22 09:58 Patient Disposition: Home, Self-Care Discharge Diagnosis: Small-bowel obstruction Referrals: Matthew Hirsch DO [Primary Care Provider] - 1 Week Discharge Medications: Continued omeprazole 40 mg capsule,delayed release(DR/EC) 40 mg PO BID@0630,1630 Allergy Relief (cetirizine) 10 mg Capsule 10 mg PO DAILY gabapentin 300 mg Capsule 300 mg PO DAILY Qty: 30 3RF verapamil 240 mg capsule,ext rel. pellets 24 hr 1 cap PO DAILY multivitamin Liquid 5 ml PO DAILY Discharge Orders: Discharge Order (Routine); Ordered 06/23/22 Ordered By: Macey Bowden Diet: Advance to usual diet Activity on Discharge: As tolerated Stand Alone Forms: Patient Portal Discharge page Care Plan Goals: Small-bowel obstruction resolved likely due to adhesions Health Concerns: Continue all home medications as before Plan of Treatment: Outpatient follow-up primary care physician, and Oncology Assessment: As above
== END 2022-06-23 13:29 | disposition home or self-care (01) | DRG 389 ==
LOC: HO.ED 07:15 → HO.EDOVER 19:37 → HO.S3 06-20 16:12
PROVIDERS: Emergency Medicine; Internal Medicine; Admitting Provider Hospitalist; Emergency Provider Emergency Medicine Emergency Medical Services; PCP Internal Medicine; Visit Provider Hospitalist
DX: K56.50 Intestinal adhesions [bands], unspecified as to partial versus complete obstruction (principal); C15.9 Malignant neoplasm of esophagus, unspecified; K21.9 Gastro-esophageal reflux disease without esophagitis; G62.0 Drug-induced polyneuropathy; T45.1X5A Adverse effect of antineoplastic and immunosuppressive drugs, initial encounter; I10 Essential (primary) hypertension; Z20.822 Contact with and (suspected) exposure to COVID-19; Z85.46 Personal history of malignant neoplasm of prostate; Z91.199 Patient's noncompliance with other medical treatment and regimen due to unspecified reason; Z92.3 Personal history of irradiation; Z79.899 Other long term (current) drug therapy
CPT/HCPCS: 36415; 71045; 74176; 80048; 80076; 81003; 82607; 82728; 82746; 83690; 85025; 85027; 87635; 94640; 99285; J2270; J2405; J2765

== ENCOUNTER 2022-06-30 13:34 | Outpatient (REF) | payer MEDICARE, SELFPAY ==
--- NOTE | ~2022-06-30 | CT_ITS ---
EXAMINATION: CT CHEST WITH CONTRAST CLINICAL INFORMATION: Esophageal cancer. Assess response to treatment. COMPARISON: Previous chest CT most recent March 2022 TECHNIQUE: Multidetector volumetric CT imaging of the chest was obtained after the administration of 65 mL of Omnipaque 350 intravenous contrast without immediate adverse reactions. Axial MIP volume rendering provided. Sagittal and coronal reformatted images were obtained. This CT examination was performed using dose optimization techniques as appropriate, variously including the following: *Automated exposure control *Adjustment of mA and/or kV according to patient size (this includes techniques or standardized protocols for targeted exams where dose is matched to indication/reason for exam; i.e. extremities or head) *Use of iterative reconstruction technique DLP: 112 mGy-cm FINDINGS: LUNGS: New right upper lobe nodules axial image 21 series 3 and 30 series 3 new right middle lobe nodule axial image 38 series. New right lower lobe nodules axial image 39 series 3. New right middle lobe nodules axial image 51 series 3 largest nodules are a lobulated 1 cm right upper lobe nodule axial image 98 series 9 and irregularly-shaped medial segment right middle lobe nodule measuring 0.6-3.3 cm axial image 164 series 9. There is evidence of mild bronchiectasis in both lower lobes and bronchial wall thickening.. New left lower lobe atelectasis or small infiltrate. MEDIASTINUM: Postsurgical changes following esophagectomy and gastric pull-up. Increased soft tissue in the right superior mediastinum adjacent to the right side of the trachea and anterior esophagus axial image 12 series 3. This does not appear appreciably changed. Small more inferior mediastinal lymph nodes. No hilar adenopathy. Normal heart size. No pericardial effusion. Right jugular port with tip projecting over the SVC. PLEURA: New small left pleural effusion. No right pleural effusion. AXILLA: No lymphadenopathy. UPPER ABDOMEN: Postsurgical changes. Evidence of previous abdominal wall hernia repair with mesh. OSSEOUS STRUCTURES: Degenerative changes of the spine. CT/CT chest w IV con IMPRESSION: Stable postsurgical changes following esophagectomy and gastric pull-up. Multiple new right pulmonary nodules largest in the right upper and right middle lobes. Infectious, inflammatory and neoplastic processes should be considered. New left lower lobe atelectasis/small infiltrate and small pleural effusion. Stable abnormal soft tissue in the right superior mediastinum adjacent to the trachea and esophagus. Fleischner guidelines were followed.
[2022-06-30] MEDS: iohexoL 350 MG/ML 100 ML INFUS..BTL 65 ML IV (14:14)
== END 2022-06-30 13:35 | disposition home or self-care (01) ==
LOC: HO.CT 13:34
PROVIDERS: Visit Provider Internal Medicine
DX: C15.9 Malignant neoplasm of esophagus, unspecified (principal)
CPT/HCPCS: 71260; Q9967

== ENCOUNTER → 2022-07-23 14:16 | Outpatient (BNVA) | payer MEDICARE, SELFPAY | PROVIDERS: PCP Internal Medicine; Visit Provider Psychiatry & Neurology Neurology | DX: G62.0 Drug-induced polyneuropathy (principal); T45.1X5A Adverse effect of antineoplastic and immunosuppressive drugs, initial encounter; Z85.01 Personal history of malignant neoplasm of esophagus; Z79.899 Other long term (current) drug therapy | CPT/HCPCS: 99202 ==

== ENCOUNTER 2022-09-10 14:00 | Outpatient (RCR) | payer MEDICARE, OTHER, SELFPAY ==
--- NOTE | 2022-07-31 09:44 | MHC.PT.EP ---
[facility] [place] Office [place] Office [place] Office [address] Jon Isaac [address] [phone] F: [phone] F: [phone] F: [phone] F: [phone] Physical Therapy Plan of Care Date of Evaluation: Date of Surgery: Diagnosis: NEUROPATHY () Assessment: FUAD IS A PLEAANT 76 YO RETIRED GENTLEMAN WHO PRESENTS WITH DIAGNOSIS OF NEUROPATHY. HE STATES THAT AFTER THE D/C OF CHEMO 3 MONTHS AGO NEUROPATHY SYMPTOMS BEGAN TO WORSEN IN LOWER LEGS AND HANDS. HE REPORTS NEUROPATHY CONTINUES TO INCREASE EVEN WITH HIGHER DOSES OF GABAPENTIN. HE REPORTS HE HAS MINIMAL USE OF HANDS WITH DIFFICULTY HOLDING OBJECTS, BUTTONING SHIRTS AND FEEDING HIMSELF. HE HAS DIFFICULTY IN THE SHOWER AND HIS WILL BE ON STAND BY IN CASE HE LOSES HIS BALANCE. HE DOES ADMIT TO SEVERAL FALLS OVER THE LAST FEW MONTHS BUT DOES NOT USE AN ASSISTIVE DEVICE. UPON EXAM IMPAIRMENTS INCLUDE DECREASED LE STRENGTH, ALTERED POSTURE AND POSITIONING, ALTERED SENSATION AND PROPRIOCEPTION, POOR BALANCE. FUNCTIONAL LIMITATIONS INCLUDE DECREAED ABILTIY TO PERFORM HOMEMAKING AND SELF CARE TASKS, DECREASED ABILITY TO HOLD AND CARRY OBJECTS, DECREASED ABILITY TO PERFORM INDEPENDENT TRANSFERS AND GAIT, DECREASED Frequency and Duration: The patient will be seen 2 X WEEK FOR 4 WEEKS Short Term Goals: INITIATE HEP AND PROMOTE SELF MANAGEMENT OF SYMPTOMS Fci Goals: Independent HEP Full LE strength to tolerate balance EO/EC for a minimum of 30 seconds without LOB Patient will negotiate community obstacles such as curbs, ramps and open spaces without LOB for a minimum of 1000 feet. Treatment Plan: Modalities to reduce pain, spasms and effusion. Manual therapy to restore motion and function. Therapeutic exercise to improve strength and flexibility. Neuromuscular re-education for posture and balance. Therapeutic activities to return to functional activities of daily living. Electronically signed by: JASON PEARSON PT, DPT Please sign and return to therapist. Thank you for your referral.
== END 2022-10-09 08:10 | disposition home or self-care (01) ==
LOC: HO.PT 14:00
PROVIDERS: PCP Internal Medicine; Visit Provider Internal Medicine
DX: R26.0 Ataxic gait (principal); G60.9 Hereditary and idiopathic neuropathy, unspecified
CPT/HCPCS: 97110; 97162; 97530

== ENCOUNTER 2022-09-12 14:00 | Outpatient (RCR) | payer MEDICARE, OTHER, SELFPAY ==
--- NOTE | 2022-09-12 16:17 | MHC.OT.DC ---
[address] [phone] F: [phone] Occupational Therapy Discharge Note Provider: Isabella Brooks Diagnosis: Chemotherapy induced polyneuropathy Date of Surgery: Date of Evaluation: 08/27/22 Date of Discharge: 09/12/22 Treatments to Date: 5 Cancellations to Date: 0 No Shows to Date: 0 Discharge Status: Achieved Goals Improved Function Discharge Summary: Pt reports some improvement in pain ,sensation and finger dexterity with warming hands to ~ 100 deg and using hand warming lotion. He is able to discriminate textures with moving touch with 100% accuracy. Unable with static touch. He reports improved with shirt buttons but continues to have difficulty with dining utensils , finger foods and washing dishes. Recommendations were made for adapted methods and devices for increased ease and safety with daily activities. Electronically Signed By: Rosey Tan OT CHT CLT Reviewed/agree with student documentation: Therapist: Please Sign and return to therapist, thank you for your referral.
== END 2022-09-12 16:18 | disposition home or self-care (01) ==
LOC: HO.OT 14:00
PROVIDERS: Visit Provider Internal Medicine
DX: G62.9 Polyneuropathy, unspecified (principal); R26.89 Other abnormalities of gait and mobility
CPT/HCPCS: 97035; 97110; 97112; 97140; 97167; 97535

== ENCOUNTER 2022-09-17 08:18 | Outpatient (REF) | payer MEDICARE, OTHER, SELFPAY ==
[2022-09-17 13:49] LABS: Prostate Specific Antigen < 0.10 ng/mL (<0.05-4.0)
== END 2022-09-17 08:19 | disposition home or self-care (01) ==
LOC: HO.HMGCLDS 08:18
PROVIDERS: Visit Provider Physician Assistant Surgical
DX: C61 Malignant neoplasm of prostate (principal)
CPT/HCPCS: 36415; 84153

== ENCOUNTER 2022-09-18 09:30 | Outpatient (REF) | payer MEDICARE, OTHER, SELFPAY ==
--- NOTE | ~2022-09-18 | FL_ITS ---
EXAMINATION: FL BARIUM SWALLOW CLINICAL INFORMATION: Dysphagia. Additional history obtained from prior imaging notes prior esophageal cancer with partial esophagectomy and gastric pull up. COMPARISON: CT chest and abdomen 06/19/2022. PET/CT 11/12/2021. Barium swallow 11/07/2021, upper GI 03/16/2020 TECHNIQUE: Barium swallow examination is performed on 09/18/[address] Mccloud. Radiologist is away and unable to provide report. Submitted images are reviewed. Addendum requested for any additional fluoroscopic evaluation findings. The patient is imaged using both thick and thin barium sulfate along with effervescent granules. Fluoroscopy time: 2.1 minutes. DAP: 6.674 Gycm2. Images: 46. FINDINGS: There is no aspiration. The cervical esophagus shows no web or diverticulum or stricture. The cervical thoracic junction appears normal. There is a tunneled port again seen overlying the right chest. There is been prior partial esophagectomy with gastric pull up. Anastomosis is in the region of mid thoracic esophagus, close to the hasmukh. There is no stricture. The mucosa appears smooth. No ulcerations. A cursory view of the upper abdomen shows no gastric outlet obstruction. FL/FL barium swallow IMPRESSION: -Status post prior partial gastrectomy with gastric pull-up. -No obstruction or stricture or ulceration. -Addendum request submitted for the performing radiologist for any additional fluoroscopic evaluation findings.
== END 2022-09-18 09:31 | disposition home or self-care (01) ==
LOC: HO.XRAY 09:30
PROVIDERS: PCP Internal Medicine; Visit Provider Internal Medicine
DX: K56.609 Unspecified intestinal obstruction, unspecified as to partial versus complete obstruction (principal); C15.9 Malignant neoplasm of esophagus, unspecified; R13.10 Dysphagia, unspecified
CPT/HCPCS: 74220

== ENCOUNTER 2022-09-23 08:09 | Outpatient (REF) | payer MEDICARE, OTHER, SELFPAY ==
[2022-09-23 12:22] LABS: Folate 9.9 ng/mL (> or = 4.0); Vitamin B12 227 pg/mL (200-900)
[2022-09-27 13:58] LABS: Nicotinamide 39 ng/mL; Vit B3 - Nicotinic Acid <20 ng/mL
[2022-09-29 14:38] LABS: Vitamin B6 5.8 ng/mL (2.1-21.7)
[2022-09-30 05:28] LABS: Vitamin B1 23 nmol/L (8-30)
== END 2022-09-23 08:10 | disposition home or self-care (01) ==
LOC: HO.HMGCLDS 08:09
PROVIDERS: PCP Internal Medicine; Visit Provider Psychiatry & Neurology Neurology
DX: G62.0 Drug-induced polyneuropathy (principal); T45.1X5A Adverse effect of antineoplastic and immunosuppressive drugs, initial encounter
CPT/HCPCS: 36415; 82607; 82746; 84207; 84425; 84591

== ENCOUNTER 2022-10-02 13:39 | Outpatient (REF) | payer MEDICARE, OTHER, SELFPAY ==
--- NOTE | 2022-10-02 08:00 | EMG_ITS ---
Bilateral median and ulnar motor and sensory studies were performed. Bilateral radial sensory studies were performed and paraspinal muscles were tested with a needle. IMPRESSION: 1. [id number] bilateral median neuropathy across carpal tunnel. 2. [id number] bilateral ulnar neuropathy across cubital tunnel. MD AIDE Phillip/LINNETTE / [id number]
== END 2022-10-02 13:40 | disposition home or self-care (01) ==
LOC: HO.NEURO 13:39
PROVIDERS: PCP Internal Medicine; Visit Provider Psychiatry & Neurology Neurology
DX: G62.0 Drug-induced polyneuropathy (principal); T45.1X5A Adverse effect of antineoplastic and immunosuppressive drugs, initial encounter
CPT/HCPCS: 95886; 95911

== ENCOUNTER → 2022-11-12 08:49 | Outpatient (BNVA) | payer MEDICARE, OTHER, SELFPAY | PROVIDERS: PCP Internal Medicine; Visit Provider Psychiatry & Neurology Neurology | DX: G62.0 Drug-induced polyneuropathy (principal); T45.1X5D Adverse effect of antineoplastic and immunosuppressive drugs, subsequent encounter | CPT/HCPCS: 99212 ==

== ENCOUNTER → 2022-12-05 13:45 | Outpatient (BNVA) | payer MEDICARE, SELFPAY | PROVIDERS: PCP Internal Medicine; Visit Provider Psychiatry & Neurology Neurology | DX: G62.0 Drug-induced polyneuropathy (principal); T45.1X5A Adverse effect of antineoplastic and immunosuppressive drugs, initial encounter | CPT/HCPCS: 99212 ==

== ENCOUNTER 2022-12-08 14:59 | Outpatient (REF) | payer MEDICARE, OTHER, SELFPAY ==
--- NOTE | ~2022-12-08 | CT_ITS ---
EXAMINATION: CT CHEST WITH CONTRAST CLINICAL INFORMATION: Esophageal cancer. Surveillance. COMPARISON: Previous chest CT most recent June 2022 TECHNIQUE: Multidetector volumetric CT imaging of the chest was obtained after the administration of 65 mL of Omnipaque 350 intravenous contrast without immediate adverse reactions. Axial MIP volume rendering provided. Sagittal and coronal reformatted images were obtained. This CT examination was performed using dose optimization techniques as appropriate, variously including the following: *Automated exposure control *Adjustment of mA and/or kV according to patient size (this includes techniques or standardized protocols for targeted exams where dose is matched to indication/reason for exam; i.e. extremities or head) *Use of iterative reconstruction technique DLP: 102 mGy-cm FINDINGS: LUNGS: The previously identified right pulmonary nodules that were new on June 2022 exam are no longer seen. There is mild traction bronchiectasis seen in both lower lobes. There is increased peripheral attenuation and interstitial markings questionable for mild interstitial lung disease. Small stable 2 x 4 mm peripheral or subpleural left lower lobe nodule adjacent to fissure probably representing a subpleural lymph node axial image 73 series 7. No new pulmonary nodule. MEDIASTINUM: There is abnormal soft tissue in the right superior mediastinum adjacent right side of the trachea and esophagus that is not appreciably changed. There are postsurgical changes following esophagectomy and gastric pull-up. There are small more inferior mediastinal and bilateral hilar lymph nodes. These do not appear appreciably changed. Normal heart size. No pericardial effusion. Normal caliber thoracic aorta. Mild coronary artery calcification. PLEURA: There is no pleural effusion. No pleural mass or thickening. AXILLA: Small bilateral axillary lymph nodes. No enlarged lymph nodes. UPPER ABDOMEN: Fatty liver. OSSEOUS STRUCTURES: Degenerative changes of the spine. CT/CT chest w IV con IMPRESSION: Stable postsurgical changes from esophagectomy and gastric pull-up. Stable abnormal soft tissue in the right superior mediastinum adjacent to the right side of the trachea and esophagus. Previously identified right pulmonary nodules that were new on June 2022 exam are no longer seen. Fleischner guidelines were followed.
[2022-12-09 07:03] LABS: Creatinine POC 0.7 mg/dL (0.5-1.4); GFR POC > 60
== END 2022-12-08 15:00 | disposition home or self-care (01) ==
LOC: HO.CT 14:59
PROVIDERS: PCP Internal Medicine; Visit Provider Internal Medicine
DX: C15.9 Malignant neoplasm of esophagus, unspecified (principal)
CPT/HCPCS: 71260; 82565

== ENCOUNTER 2022-12-10 12:09 | Outpatient (REF) | payer MEDICARE, SELFPAY ==
--- NOTE | 2022-12-10 10:15 | EMG_ITS ---
Please see scanned EMG / Nerve Conduction Report. MTDD
== END 2022-12-10 12:10 | disposition home or self-care (01) ==
LOC: HO.NEURO 12:09
PROVIDERS: PCP Internal Medicine; Visit Provider Psychiatry & Neurology Neurology
DX: G62.0 Drug-induced polyneuropathy (principal); T45.1X5A Adverse effect of antineoplastic and immunosuppressive drugs, initial encounter
CPT/HCPCS: 95885; 95911

== ENCOUNTER 2023-03-19 14:12 | Outpatient (AMB) | payer MEDICARE, SELFPAY ==
--- NOTE | 2023-03-19 14:13 | MHC.OFFVIS ---
Intake Vital Signs 03/19/23 14:14 Height 5 ft 8 in BP 120/72 Blood Pressure Location Rt brachial Position Sitting Pulse 82 Pulse Source Pulse Oximeter Pulse Oximetry (%) 96 Oxygen Delivery Method Room Air Intake Visit Reasons: 3m follow up neuropathy-LVM Intake Note: Patient presents for 3 month follow up neuropathy Allergies No Known Allergies [No Known Allergies*] Allergy (Verified 03/19/23 14:15) HPI HPI Comments History of Present Illness Details 77y/o male comes for follow up of neuropathy.EMG Ue showed mustapha carpal tunnel and ulnar nerve compression.EMG LE - moderately severe axonal sensory neuropathy PT helps with strength His hands have improved . His legs are same - he is exercising more.He tried alpha lipoic acid - had cough so he stopped . He feels unsteady in his feetHe started golfing Past history- He was diagnosed with Esophageal adeno ca in 2018 treated with chemo, radiation and surgery . In November 2021 - he was diagnosed with a malignant mediastinal mass . He was?started palliative chemotherapy with FOLFOX regimen plus nivolumab in the first-line setting from 12/24/2021.? CT chest performed 06/30/2022 shows? stable postsurgical changes of esophagectomy, multiple new right pulmonary nodules largest in the right upper and middle lobes.? Infectious, inflammatory and neoplastic processes should be considered.? New left lower lobe atelectasis /small infiltrate and small pleural effusion.? Stable abnormal soft tissue in the right superior mediastinum adjacent to the trachea and esophagus. ? Chemotherapy stopped after cycle 10,? Nivolumab has been discontinued after cycle 12 due to onset on numbness and tingling PFSH Medical History Basal cell carcinoma, scalp/neck Cervical spondylosis Constipation Diverticulosis (~1998) Esophageal adenocarcinoma (~2017) GERD (gastroesophageal reflux disease) History of prostate cancer (~2004) History of small bowel obstruction (~2019) Hypercholesterolemia Hypertension Mass of right side of neck Melanoma 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 Osteoarthritis Personal history of nicotine dependence Shingles Throat mass Vitamin B12 deficiency Surgical History History of appendectomy History of colonoscopy History of esophagectomy (~2018) History of esophagogastroduodenoscopy (EGD) History of hemorrhoidectomy (~1993) History of incisional hernia repair (~2019) History of jejunostomy tube placement (~2018) History of meniscectomy of right knee (~2003) History of prostatectomy (~2004) Family History Son Non-Hodgkin lymphoma Father Prostate cancer Mother No problems noted. Social History Household Members: [facility] Are you a primary rn progressive care to a significant other at home: No Do you presently have visiting nurse or other home services: No Alcohol intake: never Patient Tobacco Use Status: Former Tobacco user Years Smoked: 35 Second Hand Smoke Exposure: No service: Yes Current occupational status: retired Current occupation: rt handed Review of Systems Neuro Reports Sensory deficit (Neuro) Physical Exam Vital Signs: Last Vital Signs Pulse 82 03/19/23 14:14 BP 120/72 03/19/23 14:14 Pulse Ox 96 03/19/23 14:14 Oxygen Delivery Method Room Air 03/19/23 14:14 Const General: cooperative, healthy appearing, comfortable and no acute distress Nutritional Appearance: average body habitus Orientation/consciousness: patient oriented x3 HEENT Head: Yes normal to inspection, Yes normocephalic and Yes atraumatic Neck Other: antecollis Neck: Yes normal visual inspection and Yes full ROM Neuro General: patient oriented x3, gait normal, tone normal, moves all extremities and no focal motor deficits Cranial nerves: Yes Facial sensation intact/muscles of mastication intact, Yes Bilaterally intact EOM present, Yes Nystagmus not present, Yes Normal facial strength present, Yes Midline tongue present and Yes Symmetric palate elevation present Cognition (Neuro): normal cognition Gait exam (Neuro): Other gait observations present (slow mild off balance) Motor exam (neuro): Other motor observations present (mild weakness of hands and feet) Sensory Exam: Sensory deficit (Neuro) and other (decreased PP Light touch vibration in LE upto upper thighs . ) Deep tendon reflexes (DTR's): Right triceps reflex intensity grade: 1+, Left triceps reflex intensity grade: 1+, Rt Biceps (C5, C6): 1+, Left biceps reflex intensity grade: 1+, Right brachioradialis reflex intensity grade: 1+, Left brachioradialis reflex intensity grade: 1+, Right patellar reflex intensity grade: 1+, Left patellar reflex intensity grade: 1+, Right ankle reflex intensity grade: 0 and Left ankle reflex intensity grade: 0 Coordination: [id number] test normal Results Reviewed Results Reviewed: Moderate sensory axonal neuropathy LE Assessment & Plan Assessment & Plan (1) Chemotherapy-induced peripheral neuropathy: Code(s): G62.0 - Drug-induced polyneuropathy; T45.1X5A - Adverse effect of antineoplastic and immunosuppressive drugs, initial encounter Plan Vit B 12 , B6 and B1 levels were normal Gabapentin 600mg bid Amitriptyline 25mg qhs suggested to use cane or walker alphalipoic acid 300mg bid for paresthesias - try a different brand Coding Level of Care Code Est Pt Level 4 (17918) Diagnoses Chemotherapy-induced peripheral neuropathy G62.0; T45.1X5A
[2023-03-19 14:14] VITALS: BP 120/72; PULSE 82; O2SAT 96
== END 2023-03-19 14:40 | disposition home or self-care (01) ==
PROVIDERS: Visit Provider Psychiatry & Neurology Neurology
DX: G62.0 Drug-induced polyneuropathy (principal); T45.1X5A Adverse effect of antineoplastic and immunosuppressive drugs, initial encounter
CPT/HCPCS: 99214

== ENCOUNTER → 2023-03-19 14:12 | Outpatient (BNVA) | payer MEDICARE, SELFPAY | PROVIDERS: Visit Provider Psychiatry & Neurology Neurology | DX: G62.0 Drug-induced polyneuropathy (principal); T45.1X5A Adverse effect of antineoplastic and immunosuppressive drugs, initial encounter | CPT/HCPCS: 99212 ==

== ENCOUNTER 2023-07-20 15:00 | Outpatient (REF) | payer MEDICARE, SELFPAY ==
--- NOTE | ~2023-07-20 | CT_ITS ---
EXAMINATION: CT CHEST WITH CONTRAST CLINICAL INFORMATION: History of esophageal cancer. For surveillance. COMPARISON: CT chest 12/12/2022. TECHNIQUE: Multidetector volumetric CT imaging of the chest was obtained after the administration of 65 mL of Omnipaque 350 intravenous contrast without immediate adverse reactions. Axial MIP volume rendering provided. Sagittal and coronal reformatted images were obtained. This CT examination was performed using dose optimization techniques as appropriate, variously including the following: *Automated exposure control *Adjustment of mA and/or kV according to patient size (this includes techniques or standardized protocols for targeted exams where dose is matched to indication/reason for exam; i.e. extremities or head) *Use of iterative reconstruction technique DLP: 135 mGy-cm FINDINGS: SENIOR APPLICATIONS ENGINEER: Well-inflated lungs. LUNGS: There is a 2 mm nodule, likely intrabronchiolar focal thickening or debris right upper lobe axial image 78/7, 4 mm tubular intrabronchiolar nodule or debris axial image 108/7. These are stable. No additional nodules or lesion seen. MEDIASTINUM: There is intrathoracic gastric pull-through stomach. The heart size and the great vessels are normal caliber. The thyroid lobes are symmetrical and normal. Central trachea and the bronchi are widely patent. No abnormal size mediastinal or hilar lymph nodes seen. No pericardial effusion. There is trace coronary artery calcification. There is soft tissue density in right superior mediastinum, stable PLEURA: There is no pleural effusion. No pleural mass or thickening. AXILLA: Small shotty lymph nodes seen in bilateral axilla. UPPER ABDOMEN: Visualized liver, spleen, adrenal glands and gallbladder appear unremarkable. OSSEOUS STRUCTURES: No aggressive lytic or sclerotic process seen. There is mild ventral spondylosis mid dorsal spine. There is a right central venous port with its tip in mid SVC. CT/CT chest w IV con IMPRESSION: Intrabronchiolar debris or nodules in the right upper lobe, as described above, are stable. No new nodule seen. Esophagectomy and gastric pull-through is stable. Stable right superior mediastinal soft tissue density. Fleischner guidelines were followed.
[2023-07-24 09:28] LABS: Creatinine POC 0.9 mg/dL (0.5-1.4); GFR POC > 60
== END 2023-07-20 15:01 | disposition home or self-care (01) ==
LOC: HO.CT 15:00
PROVIDERS: PCP Internal Medicine; Visit Provider Internal Medicine
DX: C15.9 Malignant neoplasm of esophagus, unspecified (principal)
CPT/HCPCS: 71260; 82565

== ENCOUNTER 2023-07-29 10:51 | Outpatient (REF) | payer MEDICARE, SELFPAY ==
--- NOTE | ~2023-07-29 | FL_ITS ---
EXAMINATION: XR FLUOROSCOPY BARIUM SWALLOW CLINICAL INFORMATION: Dysphagia. History of esophageal cancer status post esophagogastrectomy COMPARISON: Barium swallow 11/07/2021 TECHNIQUE: Fluoroscopic air contrast upper GI examination was performed utilizing standard techniques with thin and thick barium and effervescent granules. Numerous spot images were obtained. FINDINGS: A port is present in the right chest wall. Lateral cine images of the oropharynx and hypopharynx demonstrate normal swallow mechanism with normal epiglottic inversion and soft palate elevation. There was a small amount of subglottic aspiration that occurred mid exam. No tracheal aspiration was seen. No nasopharyngeal reflux present. Hypopharyngeal structures appear normal without evidence of mass or diverticulum. There was no significant cricopharyngeal achalasia. Dual and single contrast images of the esophagus demonstrate postoperative changes consistent with prior history of esophagogastrectomy and intrathoracic position of the stomach. No evidence of stricture, mass, or ulcerations identified. Gastroesophageal anastomosis is patent. Esophageal peristalsis was normal. No significant gastroesophageal reflux was seen during the course of the examination and on reflux views. Evaluation of the stomach is limited due to poor coating and pull-through procedure. Grossly no mass, ulceration, or other abnormality is seen. Contrast freely passed into the gastric antrum and duodenal bulb without delay. Single and air-contrast images of the duodenal bulb demonstrate no abnormality. The duodenal sweep has a normal appearance, course, and mucosal fold appearance. The imaged proximal jejunum has a normal fold pattern and caliber. FLUOROSCOPY TIME: 3 minutes 21 seconds Number of Spot Images: 8 Number of Cine: 7 DOSE AREA PRODUCT: 1061 uGy-m2 (microgray-meter squared) FL/FL barium swallow IMPRESSION: 1. Small amount of subglottic barium aspiration that occurred mid examination. 2. Postsurgical changes consistent with prior esophagogastrectomy and intrathoracic addition of the stomach 3. Gastroesophageal anastomosis is patent. No reflux is seen on this examination. 4. Limited evaluation of the stomach due to poor coating, however, no obvious masses, ulcerations, or other abnormalities are seen. If warranted, EGD recommended. This procedure was performed by Quang Watson PA-C, and supervised by Dr. Acosta
== END 2023-07-29 10:52 | disposition home or self-care (01) ==
LOC: HO.XRAY 10:51
PROVIDERS: PCP Internal Medicine; Visit Provider Internal Medicine
DX: R13.10 Dysphagia, unspecified (principal); K56.609 Unspecified intestinal obstruction, unspecified as to partial versus complete obstruction; C15.9 Malignant neoplasm of esophagus, unspecified
CPT/HCPCS: 74220

== ENCOUNTER → 2023-07-29 10:53 | Outpatient (BNV) | payer MEDICARE, SELFPAY | PROVIDERS: PCP Internal Medicine; Visit Provider Radiology Diagnostic Radiology | DX: R13.10 Dysphagia, unspecified (principal); Z85.01 Personal history of malignant neoplasm of esophagus | CPT/HCPCS: 74246 ==

== ENCOUNTER 2023-08-27 14:41 | Outpatient (REF) | payer MEDICARE, SELFPAY ==
[2023-08-27 15:50] LABS: Blood Urea Nitrogen 11 mg/dL (9-16); Estimated Glomerular Filt Rate > 60
== END 2023-08-27 14:42 | disposition home or self-care (01) ==
LOC: HO.LAB 14:41
PROVIDERS: Internal Medicine; Visit Provider Otolaryngology
DX: C15.9 Malignant neoplasm of esophagus, unspecified (principal); R49.0 Dysphonia
CPT/HCPCS: 36415; 82565; 84520

== ENCOUNTER 2023-09-09 14:03 | Outpatient (REF) | payer MEDICARE, SELFPAY ==
--- NOTE | ~2023-09-09 | FL_ITS ---
EXAMINATION: Modified Barium Swallows CLINICAL INFORMATION: Mild aspiration seen on recent barium swallow study 07/29/2023; history of esophageal CA, hoarseness, pharyngeal dysphagia, chronic cough. COMPARISON: None TECHNIQUE: Modified barium swallow was performed under lateral fluoroscopy with patient in standing position. Different consistency of barium mixed with solids and liquids of varying consistencies was administered by the speech therapist. Exam was recorded in the fluoroscopy suite. FINDINGS: There was trace laryngeal penetration with thin liquids above the true vocal cords. No subglottic aspiration was seen during this examination. FLUOROSCOPY TIME: 1 minute 48 seconds Number of Spot Images: 1 DOSE AREA PRODUCT: 637.9 uGy-m2 (microgray-meter squared) FL/FL barium swallow modified IMPRESSION: Trace laryngeal penetration with thin liquids above the vocal cords. No subglottic aspiration was seen during this examination. Refer to the full speech therapy report for further clarification. This procedure was performed by Quang Watson PA-C, and supervised by Dr. Acosta
--- NOTE | 2023-09-16 16:33 | MHC.SL.IMP ---
Date of Plan of Treatment: 09/09/23 Onset of Symptoms/Illness: 08/09/18 Date Treatment Started: 09/09/23 Admitting Diagnosis: R49.0 Hoarseness Z85.01 History of esophageal cancer R13.13 Pharyngeal dysphagia R05.3 Chronic cough Primary Speech & Language Diagnosis: R13.12 Oropharyngeal Phase Dysphagia Reason for Today's Visit: 81923 Modified Barium Swallow Study Pre-evaluation Dietary Consistencies: Regular Pre-evaluation Liquid Consistency: Thin Pre-evaluation Medication Administration: Whole with Liquid Medical History: Modified Barium Swallow Study Fluoroscopic Evaluation of Swallowing Function CPT Code 01028 Evaluation Year: 2023 Reason for Study: Pt reporting difficulty swallowing. Referring Physician: Matthew Powell MD Evaluating Clinician: Shu Elizalde MA, CCC-BACKFILLER Study Number: 1 Patient Name: Yoseph Orellana Status: Outpatient Age: 78 Gender: Male Medical History Medical History Basal cell carcinoma, scalp/neck Cervical spondylosis Constipation Diverticulosis (~1998) Esophageal adenocarcinoma (~2017) GERD (gastroesophageal reflux disease) History of prostate cancer (~2004) History of small bowel obstruction (~2019) Hypercholesterolemia Hypertension Mass of right side of neck Melanoma 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 Osteoarthritis Personal history of nicotine dependence Shingles Throat mass Vitamin B12 deficiency Surgical History History of appendectomy History of colonoscopy History of esophagectomy (~2018) History of esophagogastroduodenoscopy (EGD) History of hemorrhoidectomy (~1993) History of incisional hernia repair (~2019) History of jejunostomy tube placement (~2018) History of meniscectomy of right knee (~2003) History of prostatectomy (~2004) Current (pre-evaluation) Intake/Diet: Route: PO Diet Grade: Regular Liquid Consistencies: Thin Pre-Study Functional Oral Intake Scale (FOIS): 7- Total oral intake with no restrictions Pain: None reported at time of study SUBJECTIVE: Pt is an 78 year old male referred by Gastroenterology for a modified barium swallow study. Pt was reportedly diagnosed with esophageal cancer in July 2018 and has history of esophagectomy and having a J-tube for feeding in the past. He reports his cancer came back in his thyroid and that he had undergone chemotherapy treatment for it. 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 Pt recalls having been recommended further workup in [place] to determine what had caused his vocal fold to become paralyzed. However, it is unclear if this has yet been done. Pt complains of changes to his voice as well as having difficulty swallowing. He reports coughing and choking ?every now and then? with liquids, solids, and his own saliva. Pt also describes having globus sensation, stating, ?I feel something in my throat after I eat.? Pt did have a Barium Swallow X-Ray at [facility] on 07/29/23 showing aspiration. Oral Motor Exam Facial Symmetry: Symmetrical Mouth Occlusion: Normal Oral-Facial Teeth Characteristics: Intact/Normal Oral-Facial Smile (Lips) Description: Normal Oral-Facial Puff Cheeks Description: Normal Tongue Size: Normal Tongue Excursion Description: Normal Tongue Range of Movement Description: Normal Tongue Speed of Movement Description: Normal Tongue Strength of Movement (against opposing pressure): Normal Tongue Movement Characteristics: Normal/Absent Food and Liquid Trials: Oral Impairment: Lip Closure: Did not test Oral Impairment: Tongue Control During Bolus Hold: 1=Escape to lateral buccal cavity/floor of mouth (FOM) Oral Impairment: Bolus Preparation/Mastication: 1=Slow prolonged chewing/mashing with complete re-collection Oral Impairment: Bolus Transport/Lingual Motion: 2=Slowed tongue motion Oral Impairment: Oral Residue: 2=Residue collection on oral structures Oral Impairment:Initiation of Pharyngeal Swallow: 1=Bolus head in valleculae Pharyngeal Impairment: Soft Palate Elevation: 0=No bolus between soft palate (SP)/pharyngeal wall (PW) Pharyngeal Impairment: Laryngeal Elevation: 1=Partial thyroid cartilage/arytenoids to epiglottic petiole movement Pharyngeal Impairment: Anterior Hyoid Excursion: 1=Partial anterior movement Pharyngeal Impairment: Epiglottic Movement: 1=Partial inversion Pharyngeal Impairment: Laryngeal Vestibular Closure:: 1=Incomplete: narrow column air/contrast in laryngeal vestibule Pharyngeal Impairment: Pharyngeal Stripping Wave: 1=Present: diminished Pharyngeal Impairment: Pharyngeal Contraction: Did not test Pharyngeal Impairment: Pharyngoesophageal Segment Openin=Complete distension and complete duration: no obstruction of flow Pharyngeal Impairment: Tongue Base (TB) Retraction: 2=Narrow column of contrast/air between TB and posterior PW Pharyngeal Impairment: Pharyngeal Residue: 2=Collection of residue within or on pharyngeal structures Pharyngeal Impairment: Esophageal Clearance Upright Position: Did not test Impressions and Recommendations OBJECTIVE: Time-out: performed at 15:00 Evaluation Start: 14:30; Stop: 14:35 Patient Positioning: Standing Viewing Planes: LATERAL ONLY Contrast: MBSImP? Standardized Protocol using commercially prepared, standardized Barium viscosities, including: Varibar? THIN LIQUID (40% w/v, <15 cps) , Varibar? NECTAR (40% w/v, <150-450 cps) , 1/2 Shortbread Cookie (1 x1 x.25 ) MBSImP ID: [id number] MBSImP Results: Lip closure for intraoral bolus containment could not be assessed due to logistical reasons not related to physiologic impairment. Tongue control during bolus hold allowed bolus escape to the lateral buccal cavity/floor of mouth. Bolus preparation and mastication resulted in slow, prolonged chewing/mashing but with complete re-collection. Bolus transport/lingual motion was with slowed tongue motion. Oral residue was a collection on oral structures. Initiation of the pharyngeal swallow occurred when the bolus head was in the valleculae. Soft palate elevation resulted in no bolus between the soft palate and the pharyngeal wall. Laryngeal elevation was decreased, with partial superior movement of the thyroid cartilage/partial approximation of the arytenoids to the epiglottic petiole. Anterior hyoid excursion demonstrated partial anterior movement. Epiglottic movement resulted in partial inversion. Laryngeal vestibular closure was incomplete, with a narrow column of air/contrast noted within the laryngeal vestibule at the height of the swallow. Pharyngeal stripping wave was present, but diminished. Pharyngeal contraction could not be determined due to logistical reasons not related to physiologic impairment. Pharyngoesophageal segment opening was completely distended for complete duration with no obstruction of bolus flow. Tongue base retraction allowed a narrow column of contrast or air between the retracted tongue base and the posterior pharyngeal wall. Pharyngeal residue was a collection of residue within or on pharyngeal structures. Esophageal clearance in the upright position could not be assessed due to logistical reasons not related to physiologic impairment. Oral Impairment Score: 7 (absence of score, component 1) Pharyngeal Impairment Score: 9 (absence of score, component 13) Esophageal Impairment Score: --- (absence of score, component 17) Laryngeal Penetration and Aspiration: Penetration was observed in today's study. Thin Contrast entered the airway, remained above the vocal folds, and was ejected from the airway. ASSESSMENT: Clinician Assessment: This exam was performed by the speech pathologist and the radiologist. Pt was standing for lateral view only and trialed thin, nectar thick, pureed, and regular solid consistencies. Note reduced bolus control, with some pooling of contrast to the floor of mouth. Posterior lingual movements were mildly slowed and delayed. Mastication was also prolonged, characterized by piece meal deglutition. There was mild residue on the palate and tongue, which cleared with subsequent swallows. Pharyngeal swallow trigger initiated as the bolus head reached the valleculae. Partial laryngeal elevation. Incomplete epiglottic inversion and incomplete laryngeal vestibular closure. There was a singular episode of flash penetration with trial of thin liquid. A very trace amount of contrast entered the airway above the vocal folds and spontaneously ejected. No evidence of aspiration during this exam. There was mild residue on the tongue base, on the posterior pharyngeal wall, and in the vallecuale. Pharyngeal residue was reduced after pt was cued for an additional swallow. Liquid wash also mostly cleared residuals. Liquid Intake Recommendation: Thin Liquid Intake Strategies: Small Sips, No Straws, Double Swallow Dietary Recommendations: Regular Medication Administration: Whole with Liquid Please contact the pharmacy regarding appropriate crushable or liquid drug formulations that are available whenever modified delivery is recommended. Compensatory Strategies Recommended: Sitting Upright (90 deg), Double Swallow, No Straw, Small Bites and Sips, Alternate Liquids/Solids, Rate of Ingestion Change Supervision during eating and or drinking: None Needed Recommendation for Speech Therapy: NA:Typical Evaluation Text Comment: PLAN: Intake Recommendations: Route: PO Diet Grade: Regular Liquid Consistencies: Thin Post-Study Functional Oral Intake Scale (FOIS): 6- Total oral intake with no special preparation, but must avoid specific foods or liquid items Slowed oral phase. Singular episode of flash penetration with thin liquid. No evidence of aspiration during this exam. Mild oral and pharyngeal residue cleared with subsequent swallows and/or liquid wash. Suggested Referrals: The patient might benefit from a referral to: Otolaryngology Indication for Referral: Personal reports of vocal fold paralysis Therapy Recommendations: Based on observations made during this exam, dysphagia treatment is not warranted at this time. Given his history of esophageal cancer/esophagectomy, vocal fold pathology, and prior aspiration noted on Barium Swallow 07/29/23, pt is recommended to take precautions when eating and drinking. He is recommended standard aspiration precautions, which were discussed with him at the conclusion of this exam: take small bites, chew food well, cut food into small manageable pieces, swallow 2-3 times per bite, drink by teaspoon or cup, avoid straws, take one sip at a time, swallow 2-3 times per sip, alternate solids and liquids, maintain upright position during PO intake. Pt is recommended to monitor his dysphagia closely. If there are any changes or worsening of symptoms, contact PCP, at which point a re-assessment may be warranted. Additionally recommend consultation with an Engine Tester followed likely by a voice evaluation with a speech- language pathologist for work-up of self-reported vocal fold paralysis. Subjectively, pt?s voice was perceived to be notably weak and breathy. The following compensatory strategies and/or therapeutic exercises will be part of the upcoming therapy/management plan: Liquid Wash Additional Swallow(s) per Bolus Clinician - Supplemental, Miscellaneous Communication: It is important to note MBSS objective studies are snapshots in time and Patient function might vary with factors such as time of day or concomitant medical conditions. For this reason, the final treatment plan for this patient should rest with their medical care team. Additional recommendations should be considered with the totality of the Patient in mind. Thank for the opportunity to participate in the care of this patient. If you have any questions about the content of this report, please contact the [facility] at [facility]. Education: Education regarding findings from today's study and plans for therapy were provided to Patient only through Verbal Instruction. Understanding was expressed by the Patient only. Cushion Installer Clinician/Clinical Fellow: No Supervisory Statement: N/A Speech Language Pathologist: Shu Elizalde M.A., CCC-BACKFILLER
== END 2023-09-09 14:04 | disposition home or self-care (01) ==
LOC: HO.XRAY 14:03
PROVIDERS: Visit Provider Internal Medicine
DX: R49.0 Dysphonia (principal); R13.13 Dysphagia, pharyngeal phase; R05.3 Chronic cough; Z85.01 Personal history of malignant neoplasm of esophagus
CPT/HCPCS: 74230; 92611

== ENCOUNTER → 2023-09-09 14:05 | Outpatient (BNV) | payer MEDICARE, SELFPAY | PROVIDERS: Visit Provider Radiology Diagnostic Radiology | DX: R13.13 Dysphagia, pharyngeal phase (principal) | CPT/HCPCS: 74230 ==

== ENCOUNTER 2023-09-15 08:57 | Outpatient (REF) | payer MEDICARE, SELFPAY ==
--- NOTE | ~2023-09-15 | PE_ITS ---
EXAMINATION: FLUORINE-18 FDG PET/CT SCAN CLINICAL INFORMATION: Subsequent treatment management. History of esophageal cancer. Follow-up to have right-sided neck mass on outside imaging and right-sided vocal cord palsy also on outside imaging. TECHNIQUE: 77 minutes following the intravenous administration of 17.71 mCi of fluorine 18 FDG, images from the base of skull to mid-thigh were obtained using a combined PET/CT scanner with CT scan based attenuation correction. No intravenous contrast was administered. Transverse, coronal, sagittal, and volume reconstruction projections were obtained. The patient's blood glucose as determined by a finger stick, was 74 mg/dL immediately prior to injection. The radiotracer was injected intravenously through the left antecubital superficial vein, without any complications. Total CT exam dose-length product 754.31 mGy-cm. * These CT images were obtained using dose optimization techniques as appropriate, variously including the following: Automated exposure control * Adjustment of mA and/or kV according to patient size (this includes techniques or standardized protocols for targeted exams where dose is matched to indication/reason for exam; i.e. extremities or head) * Use of iterative reconstruction technique COMPARISON: PET/CT study done on 11/12/2021 and 12/23/2018. FINDINGS: SUV max REFERENCE: Blood: 2.4 (current). 2.2 (11/12/2021). 1.6 (12/23/2018. Liver: 3.3 (current). 3.2 (11/12/2021). 3.0 (12/23/2018). HEAD AND NECK: Note is made of right-sided vocal cord palsy and asymmetric physiologic increased tracer avidity within the left-sided vocal cord. No evidence of any discrete right-sided soft tissue mass or tracer avid disease identified. Previously documented mild tracer avid heterogeneous ill-defined hypodense mass measuring up proximally 4.7 x 3.2 cm with SUV max of 3.6 seen at right lower neck abutting the right lobe of the thyroid gland and producing mass effect over the adjacent part of the trachea (256/512-coronal images), currently measures 3.5 x 1.8 cm with SUV max of 2.3 (59/267). No large intracranial hemorrhage, acute territorial infarct or significant shift of midline structures. CHEST: Ports and Devices: Right-sided Port-A-Cath is noted with its tip seen at the cavoatrial junction. Lungs: No abnormal radiotracer uptake. Pleura: No significant pleural effusion. Lymph Nodes: No tracer-avid mediastinal, hilar or internal mammary or axillary lymphadenopathy. Mediastinum: There is no significant pericardial effusion/thickening. Postsurgical changes of gastric pull-up is noted within the right posterior mediastinum without any tracer avidity at the anastomotic site, unchanged since 11/12/2021. Breasts/Chest Wall: No abnormal radiotracer uptake. ABDOMEN/PELVIS: Liver/Biliary System: No focal tracer-avid liver lesion. The gallbladder appears unremarkable. Pancreas: Normal. Spleen: No abnormal radiotracer uptake. No evidence of splenomegaly. Adrenal Glands: No abnormal radiotracer uptake. Kidneys: No hydronephrosis, hydroureter or renal calculi bilaterally. Bowel: There is no significant bowel dilatation to suggest obstruction. Postsurgical changes are noted within the anterior abdominal wall, unchanged since 11/12/2021. Lymph Nodes: No tracer avid retroperitoneal, mesenteric or pelvic and/or groin lymphadenopathy. Pelvic Organs: The urinary bladder is underdistended. Postsurgical changes are present within the pelvis likely represent prior prostatectomy. No evidence of local disease recurrence. MUSCULOSKELETAL: No suspicious tracer avid osseous disease. VASCULAR: Calcific atherosclerotic disease of the aorta including carotid and coronary artery calcifications. No significant change. THE SITE(S) OF MOST INTENSE FDG AVIDITY AND SUV MAX: Physiologic uptake within the left vocal cord. PET/PET CT fusion skull to thigh IMPRESSION: 1. The index right lower neck soft tissue mass seen on the most recent prior PET CT study done on 11/12/2021 appear smaller in size (previously measured 4.7 x 3.2 cm, currently 3.5 x 1.8 cm) and also shows lower tracer avidity (previous SUV max of 3.6, currently 2.3). Please correlate with detailed interim treatment history. 2. Persistent right-sided vocal cord palsy. 3. No other significant interval change. Specifically, no new abnormalities.
== END 2023-09-15 08:58 | disposition home or self-care (01) ==
LOC: HO.PET 08:57
PROVIDERS: PCP Internal Medicine; Visit Provider Internal Medicine
DX: Z13.89 Encounter for screening for other disorder (principal)

== ENCOUNTER 2023-09-29 08:29 | Outpatient (REF) | payer MEDICARE, SELFPAY ==
[2023-09-29 12:05] LABS: Prostate Specific Antigen < 0.10 ng/mL (<0.05-4.0)
== END 2023-09-29 08:30 | disposition home or self-care (01) ==
LOC: HO.HMGCLDS 08:29
PROVIDERS: PCP Internal Medicine; Visit Provider Physician Assistant
DX: C61 Malignant neoplasm of prostate (principal); Z12.5 Encounter for screening for malignant neoplasm of prostate
CPT/HCPCS: 36415; 84153

== ENCOUNTER 2023-11-18 14:47 | Outpatient (AMB) | payer MEDICARE, SELFPAY ==
--- NOTE | 2023-11-18 14:53 | A.OFFVIS_ITS ---
Intake Vital Signs 11/18/23 14:55 Height 5 ft 8 in Weight 168 lb 2 oz BMI 25.6 BP 98/58 L Blood Pressure Location Rt brachial Position Sitting Respiration 16 Pulse 72 Pulse Source Pulse Oximeter Pulse Oximetry (%) 95 Oxygen Delivery Method Room Air Intake Visit Reasons: follow up r/s from 11/05- CONF Intake Note: Pt presents tot he office for an 8 month follow up for Chemotherapy-induced peripheral neuropathy. Post Partum Nurse Required: No Allergies No Known Allergies [No Known Allergies*] Allergy (Verified 11/18/23 14:54) HPI HPI Comments History of Present Illness Details 78y/o male comes for follow up of shamar tavares.He started having dysphonia- about 1 year ago and was diagnosed with vocal cord frozen- not sure what caused it - but could have been due to his thyroid cancer. He sees Dr. Mary who is planning a procedure. -He also has dysphagia EMG Ue showed mustapha carpal tunnel and ulnar nerve compression. EMG LE - moderately severe axonal sensory neuropathy- worse now. He has numbness upto his waist and he feels his balance is worse. PT helps with strength His hands have improved . His legs are same - he is exercising more.He tried alpha lipoic acid - had cough so he stopped . He feels unsteady in his feet He started golfing. Past history- He was diagnosed with Esophageal adeno ca in 2018 treated with chemo, radiation and surgery . In November 2021 - he was diagnosed with a malignant mediastinal mass . He was?started palliative chemotherapy with FOLFOX regimen plus nivolumab in the first-line setting from 12/24/2021.? CT chest performed 06/30/2022 shows? stable postsurgical changes of esophagectomy, multiple new right pulmonary nodules largest in the right upper and middle lobes.? Infectious, inflammatory and neoplastic processes should be considered.? New left lower lobe atelectasis /small infiltrate and small pleural effusion.? Stable abnormal soft tissue in the right superior mediastinum adjacent to the trachea and esophagus. ? Chemotherapy stopped after cycle 10,? 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 GERD (gastroesophageal reflux disease) Constipation Throat mass Mass of right side of neck Personal history of nicotine dependence History of prostate cancer (~2004) History of small bowel obstruction (~2019) Shingles Vitamin B12 deficiency Diverticulosis (~1998) Osteoarthritis Basal cell carcinoma, scalp/neck Cervical spondylosis Hypercholesterolemia Hypertension Melanoma Esophageal adenocarcinoma (~2017) Surgical History History of hemorrhoidectomy (~1993) History of esophagogastroduodenoscopy (EGD) History of colonoscopy History of meniscectomy of right knee (~2003) History of esophagectomy (~2018) History of jejunostomy tube placement (~2018) History of incisional hernia repair (~2019) History of appendectomy History of prostatectomy (~2004) Family History Son Non-Hodgkin lymphoma Father Prostate cancer Mother No problems noted. Social History Household Members: [facility] Are you a primary home care manager to a significant other at home: No Do you presently have visiting nurse or other home services: No Alcohol intake: never Patient Tobacco Use Status: Former Tobacco user Years Smoked: 35 Second Hand Smoke Exposure: No service: Yes Current occupational status: retired Current occupation: rt handed Review of Systems Neuro Reports Sensory deficit (Neuro) Physical Exam Vital Signs: Last Vital Signs Pulse 72 11/18/23 14:55 Resp 16 11/18/23 14:55 BP 98/58 L 11/18/23 14:55 Pulse Ox 95 11/18/23 14:55 Oxygen Delivery Method Room Air 11/18/23 14:55 BMI result Body Mass Index 25.6 Const General: cooperative, healthy appearing, comfortable and no acute distress Nutritional Appearance: average body habitus Orientation/consciousness: patient oriented x3 HEENT Head: Yes normal to inspection, Yes normocephalic and Yes atraumatic Neck Other: antecollis Neck: Yes normal visual inspection and Yes full ROM Neuro Other: severe dysphonia Gait - wide based -sensory ataxia General: patient oriented x3, gait normal, tone normal, moves all extremities and no focal motor deficits Cranial nerves: Yes Facial sensation intact/muscles of mastication intact, Yes Bilaterally intact EOM present, Yes Nystagmus not present, Yes Normal facial strength present, Yes Midline tongue present and Yes Symmetric palate elevation present Cognition (Neuro): normal cognition Motor exam (neuro): Other motor observations present (mild weakness of hands and feet) Sensory Exam: Sensory deficit (Neuro) and other (decreased PP Light touch vibration in LE upto upper thighs . ) Deep tendon reflexes (DTR's): Right triceps reflex intensity grade: 1+, Left triceps reflex intensity grade: 1+, Rt Biceps (C5, C6): 1+, Left biceps reflex intensity grade: 1+, Right brachioradialis reflex intensity grade: 1+, Left brachioradialis reflex intensity grade: 1+, Right patellar reflex intensity grade: 1+, Left patellar reflex intensity grade: 1+, Right ankle reflex intensity grade: 0 and Left ankle reflex intensity grade: 0 Coordination: [id number] test normal Assessment & Plan Assessment & Plan (1) Chemotherapy-induced peripheral neuropathy: Code(s): G62.0 - Drug-induced polyneuropathy; T45.1X5A - Adverse effect of antineoplastic and immunosuppressive drugs, initial encounter Plan Vit B 12 , B6 and B1 levels were normal Gabapentin 600mg bid suggested to use cane or walker F/u ENT Coding Level of Care Code Est Pt Level 4 (74877) Diagnoses Chemotherapy-induced peripheral neuropathy G62.0; T45.1X5A
[2023-11-18 14:55] VITALS: BP 98/58; PULSE 72; RESP 16; O2SAT 95; BMI 25.6
== END 2023-11-18 15:14 | disposition home or self-care (01) ==
PROVIDERS: PCP Internal Medicine; Visit Provider Psychiatry & Neurology Neurology
DX: G62.0 Drug-induced polyneuropathy (principal); T45.1X5A Adverse effect of antineoplastic and immunosuppressive drugs, initial encounter
CPT/HCPCS: 99214

== ENCOUNTER → 2023-11-18 14:47 | Outpatient (BNVA) | payer MEDICARE, SELFPAY | PROVIDERS: PCP Internal Medicine; Visit Provider Psychiatry & Neurology Neurology | DX: G62.0 Drug-induced polyneuropathy (principal); T45.1X5D Adverse effect of antineoplastic and immunosuppressive drugs, subsequent encounter | CPT/HCPCS: 99212 ==

== ENCOUNTER 2023-11-19 08:16 | Outpatient (REF) | payer MEDICARE, SELFPAY ==
--- NOTE | 2023-11-19 08:25 | ECG_ITS ---
Test Reason : R13.10 ESOPHAGEAL DYSPHAGIA Blood Pressure : / mmHG Vent. Rate : 072 BPM Atrial Rate : 072 BPM P-R Int : 142 ms QRS Dur : 130 ms QT Int : 416 ms P-R-T Axes : 035 -10 023 degrees QTc Int : 455 ms Normal sinus rhythm Right bundle branch block Abnormal ECG When compared with ECG of 26-NOV-2021 21:37, QRS axis Shifted right Referred By: Matthew Hirsch Electronically Signed By:Jarrod Daniel
[2023-11-19 08:33] LABS: MANUAL DIFF FLAG NO
[2023-11-19 08:41] LABS: Basophils Percent Auto 0.6 % (0-2); Eosinophils Absolute Auto 0.2 X10*3/uL (0.0-0.4); Eosinophils Percent Auto 3.6 % (0-4); Hematocrit 43.4 % (42.0-52.0); Hemoglobin 14.3 g/dl (14.0-18.0); Imm Gran Abs Auto 0.01 X10*3/uL (0.00-0.03); Imm Gran Pct Auto 0.2 % (0.0-0.4); Lymphocytes Absolute Auto 1.6 X10*3/uL (1.2-4.9); Lymphocytes Percent Auto 31.9 % (20-40); Mean Corpuscular HGB Conc 32.9 g/dl (31.0-36.0); Mean Corpuscular Hemoglobin 29.4 pg (27.0-33.0); Mean Corpuscular Volume 89.1 fL (80.0-98.0); Mean Platelet Volume 10.4 fL (9.4-12.4); Monocytes Absolute Auto 0.6 X10*3/uL (0.1-1.2); Monocytes Percent Auto 12.4 % (2-11); Neutrophils Absolute Auto 2.6 x10*3/uL (2.0-8.3); Neutrophils Percent Auto 51.3 % (45-73); Platelet Count 204 X10*3/uL (160-400); Red Blood Count 4.87 X10*6/uL (4.60-5.80); Red Cell Distribution Width 13.2 % (11.0-16.0)
[2023-11-19 10:14] LABS: Anion Gap 11 (12-20); Blood Urea Nitrogen 11 mg/dL (9-16); Calcium 9.4 mg/dL (8.4-10.2); Carbon Dioxide 29 mmol/L (22-29); Chloride 108 mmol/L (96-108); Estimated Glomerular Filt Rate 54; Glucose Random 89 mg/dL (60-115); Potassium 4.6 mmol/L (3.3-5.1); Sodium 143 mmol/L (135-145)
== END 2023-11-19 08:17 | disposition home or self-care (01) ==
LOC: HO.LAB 08:16
PROVIDERS: PCP Internal Medicine; Visit Provider Internal Medicine
DX: R13.10 Dysphagia, unspecified (principal); J38.00 Paralysis of vocal cords and larynx, unspecified; I10 Essential (primary) hypertension; J30.9 Allergic rhinitis, unspecified; K56.609 Unspecified intestinal obstruction, unspecified as to partial versus complete obstruction; N52.9 Male erectile dysfunction, unspecified; C15.9 Malignant neoplasm of esophagus, unspecified
CPT/HCPCS: 36415; 80048; 85025; 93005

== ENCOUNTER → 2023-11-19 08:25 | Outpatient (BNV) | payer MEDICARE, SELFPAY | PROVIDERS: PCP Internal Medicine; Visit Provider Internal Medicine Cardiovascular Disease | DX: R94.31 Abnormal electrocardiogram [ECG] [EKG] (principal) | CPT/HCPCS: 93010 ==

== ENCOUNTER 2024-01-01 10:43 | Emergency (ER) | payer MEDICARE, SELFPAY ==
--- NOTE | 2024-01-01 | ECG_ITS ---
Test Reason : DIZZINESS Blood Pressure : / mmHG Vent. Rate : 066 BPM Atrial Rate : 066 BPM P-R Int : 144 ms QRS Dur : 132 ms QT Int : 440 ms P-R-T Axes : 025 -08 020 degrees QTc Int : 461 ms Normal sinus rhythm Right bundle branch block Abnormal ECG When compared with ECG of 19-NOV-2023 08:37, No significant change was found Referred By: Rebecca Alvarenga Electronically Signed By:Jarrod Daniel
--- NOTE | ~2024-01-01 | CT_ITS ---
EXAMINATION: CT CHEST, ABDOMEN AND PELVIS WITH CONTRAST CLINICAL INFORMATION: Abdominal pain. Diarrhea. COMPARISON: 07/20/2023 and 06/19/2022 TECHNIQUE: Multidetector volumetric imaging was performed of the chest, abdomen and pelvis following administration of 85 mL Omnipaque 350 intravenous contrast. Oral contrast was administered. Sagittal and coronal reformatted images were obtained on the technologist's workstation. This CT examination was performed using dose optimization techniques as appropriate, variously including the following: *Automated exposure control *Adjustment of mA and/or kV according to patient size (this includes techniques or standardized protocols for targeted exams where dose is matched to indication/reason for exam; i.e. extremities or head) *Use of iterative reconstruction technique DLP: 737 mGy-cm FINDINGS: CHEST: LUNGS: Moderate centrilobular emphysema. Thickening of the interlobular septi. Bilateral lower lobe bronchiectasis. Scattered areas of mucus plugging. No suspicious pulmonary nodule. Central airways are patent. PLEURA: No pleural effusion. MEDIASTINUM: Irregular soft tissue surrounding the right innominate artery and abutting the posterior right thyroid lobe measuring approximately 1.7 x 2.6 cm. This previously measured 1.7 x 2.2 cm by my measurements on 09/15/2023. Few subcentimeter mediastinal and bilateral hilar lymph nodes. Status post gastric pull-up. Heart size is normal. Great vessels are of normal caliber. No pericardial effusion. CORONARY ARTERY CALCIFICATION: Moderate. CHEST WALL/AXILLA: No axillary or internal mammary lymphadenopathy. Right chest wall Port-A-Cath with tip in the distal SVC. ABDOMEN AND PELVIS: LIVER AND BILIARY TREE: The liver is decreased in attenuation. Few scattered hypodensities too small to characterize. No biliary ductal dilatation. GALLBLADDER: Unremarkable. PANCREAS: Atrophic. SPLEEN: Not enlarged. ADRENAL GLANDS: No adrenal mass. KIDNEYS AND URETERS: Symmetric in size and enhancement. No hydronephrosis or perinephric fluid collection. GASTROINTESTINAL TRACT: Diverticular disease of the sigmoid colon. No small bowel obstruction. VASCULAR: Normal caliber abdominal aorta. LYMPH NODES: No bulky lymphadenopathy. FREE FLUID: No free fluid. BLADDER: Underdistended. PELVIC VISCERA: Status post prostatectomy. OSSEOUS STRUCTURES: No destructive bone lesions. CT/CT abdomen pelvis w IV con IMPRESSION: Stable to slight increase in irregular soft tissue in the right lower neck abutting the posterior aspect of the right thyroid lobe and surrounding the right innominate artery. Continued imaging surveillance is advised. Status post esophagectomy and gastric pull-through. No suspicious pulmonary nodule. No new disease in the abdomen or pelvis.
[2024-01-01 11:07] VITALS: BP 187/90; PULSE 68
[2024-01-01 11:16] VITALS: BP 158/87; PULSE 72; RESP 18; TEMP 36.9; O2SAT 95; BMI 23.3
--- NOTE | 2024-01-01 11:23 | PC.NURSE ---
Alert and oriented, reports 5/10 abdominal pain and cramping that started yesterday. Patient with hx of bowel obstructions and reports take extensive bowel regimen and has not had an obstruction in 3 years. Denies blood in stool but reports he spit up dark mucous. Patient reports he becomes dizzy when he walks but at rest he is fine. Denies sob or chest pain. hx of throat/esophageal ca with last treatment being two years ago and states he is CA free.
--- NOTE | 2024-01-01 12:14 | ED.GENADULT ---
HPI - General Adult General Chief complaint: General Medical Stated complaint: NAUSEA DIZZINESS THROAT CA Time Seen by Provider: 01/01/24 12:01 Source: patient, family and old records reviewed Mode of arrival: EMS Limitations: no limitations History of Present Illness ED Provider: LARRY PELAYO narrative: 78 yo male with PMH of recurrent esophageal cancer s/p esophagectomy with gastric pull through in 2019 at [facility], remote hx of prostate cancer, follows with Dr. Brooks did have recurrence of his esophageal adenocarcinoma but notes about a month ago was told he was clear. He notes he gets GERD if he lays flat at night given his anatomy and last night he laid flat the other night felt the acid in his throat, mouth and eyes. Since then he has felt nauseated but no vomiting, abdominal cramping when he stands, dizzy when he stand and overall not well. He also notes a cough but no fevers. MD complaint: cough, malaise, weakness, dizziness Onset (ago): day(s) (1) Location: chest and abdomen Radiation: non-radiation Severity: moderate Quality: dull Pain Consistency: intermittent Relieving factors: none Exacerbating factors: movement Associated symptoms: cough, loss of appetite, malaise, nausea/vomiting and weakness Treatments prior to arrival: none Related Data Home Medications ?Medication ?Instructions ?Recorded ?Confirmed cetirizine 10 mg capsule (Allergy 10 mg PO DAILY 05/23/20 10/14/23 Relief (cetirizine)) verapamil 240 mg 24 hr 1 cap PO DAILY 11/27/21 10/14/23 capsule,extended release lisinopril 20 mg tablet 20 mg PO DAILY 07/23/22 10/14/23 omeprazole 40 mg capsule,delayed 40 mg PO BID 06/05/23 10/14/23 release polyethylene glycol 3350 17 17 g PO DAILY 06/05/23 10/14/23 gram/dose oral powder (Miralax) Centrum Adult 50 Plus 1 tab PO DAILY 10/14/23 10/14/23 Colace 1 tab PO DAILY 10/14/23 10/14/23 gabapentin 300 mg capsule 600 mg PO BID 11/18/23 Previous Rx's ?Medication ?Instructions ?Recorded ondansetron 4 mg disintegrating 4 mg PO Q8H PRN nausea and 01/01/24 tablet vomiting #20 tabs sucralfate 100 mg/mL oral 10 ml PO BID 10 days #200 mL 01/01/24 suspension (Carafate) Allergies Allergy/AdvReac Type Severity Reaction Status Date / Time No Known Allergies Allergy Verified 01/01/24 11:17 [No Known Allergies*] Review of Systems Review of Systems: Constitutional : No Fever, No Chills, No Fatigue ENT/Mouth : No sore throat, No Rhinorrhea Eyes: No Eye Pain, No Swelling, No Redness Cardiovascular : No Chest Pain, No SOB, No Dyspnea on Exertion Respiratory : pos Cough, pos Sputum Gastrointestinal : pos Nausea, No Vomiting, No Diarrhea, No abdominal Pain Genitourinary : No Dysuria, No Urinary Frequency, No Hematuria, Musculoskeletal : No joint pain, No Myalgias, No Joint Swelling Skin : No Skin Lesions, No rash Neuro : No Weakness, No Numbness, pos Dizziness, no Headache Psych : No Anxiety/Panic, No Depression All other systems reviewed and are negative PMFSH Past Medical History Attestation statement: The following information was validated with the patient. 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 GERD (gastroesophageal reflux disease) Constipation Throat mass Mass of right side of neck Personal history of nicotine dependence History of prostate cancer (~2004) History of small bowel obstruction (~2019) Shingles Vitamin B12 deficiency Diverticulosis (~1998) Osteoarthritis Basal cell carcinoma, scalp/neck Cervical spondylosis Hypercholesterolemia Hypertension Melanoma Esophageal adenocarcinoma (~2017) Surgical History History of hemorrhoidectomy (~1993) History of esophagogastroduodenoscopy (EGD) History of colonoscopy History of meniscectomy of right knee (~2003) History of esophagectomy (~2018) History of jejunostomy tube placement (~2018) History of incisional hernia repair (~2019) History of appendectomy History of prostatectomy (~2004) Family History Family History Son Non-Hodgkin lymphoma Father Prostate cancer Mother No problems noted. Social History Social History Household Members: Spouse Housing: Condominium Are you a primary manager medicare marketing to a significant other at home: No Do you presently have visiting nurse or other home services: No Alcohol intake: former Patient Tobacco Use Status: Former Tobacco user Years Smoked: 35 Smoked in Last 30 Days: No Second Hand Smoke Exposure: No Use of substances other than those prescribed or required for medical reasons: No Advance Directives: Yes Advance Directives on File: Yes Advance Directives Date on File: 12/04/21 service: Yes Current occupational status: retired Current occupation: rt handed Physical Exam ED Vital Signs: Vital Signs - 24 hr 01/01/24 11:16 01/01/24 16:36 Temperature 98.4 F 97.6 F Pulse Rate 72 76 Respiratory Rate 18 16 Blood Pressure 158/87 H 154/90 H Pulse Oximetry 95 92 Oxygen Delivery Method Room Air Room Air BMI result Body Mass Index 23.3 Appearance: Alert. Oriented X3. No acute distress. Eyes: Pupils equal, round and reactive to light. ENT: Pharynx normal. Neck: Normal inspection. Neck supple. CVS: Normal heart rate and rhythm. Pulses normal. Respiratory: No respiratory distress. Breath sounds normal. Abdomen: Soft and mild epigastric ttp Skin: Skin warm and dry. Normal skin color. Normal skin turgor. Extremities: No lower extremity edema. No calf ttp Neuro: Oriented X 3. No motor deficit. No sensory deficit. Medications Administered Discontinued Medications Generic Name Dose Route Start Last Admin Trade Name Freq PRN Reason Stop Dose Admin Al Hydroxide/Mg Hydroxide 15 ml 01/01/24 16:49 01/01/24 17:01 Magnesium Hydrox/Alum Hydrox 30 Ml Oral.Susp PO 01/01/24 16:50 15 ml ONCE ONE Administration Sodium Chloride 1,000 mls @ 999 mls/hr 01/01/24 12:32 01/01/24 17:00 Ns IV 01/01/24 13:32 Infused .Q1H1M ONE Infusion Iohexol 100 ml 01/01/24 15:13 01/01/24 15:14 Iohexol 350 Mg/Ml 100 Ml Infus..Btl IV 01/01/24 15:14 70 ml ONCE ONE Administration Lidocaine HCl 15 ml 01/01/24 16:49 01/01/24 17:01 Lidocaine Hcl Viscous 2 % 15 Ml Solution MUCOUS MEM 01/01/24 16:50 15 ml ONCE ONE Administration Ondansetron HCl 4 mg 01/01/24 12:13 01/01/24 12:40 Ondansetron Hcl 4 Mg/2 Ml Vial IVPUSH 01/01/24 12:14 4 mg ONCE ONE Administration Pantoprazole Sodium 40 mg 01/01/24 12:32 01/01/24 12:43 Pantoprazole Sodium 40 Mg/10 Ml Vial IVPUSH 01/01/24 12:33 40 mg ONCE ONE Administration Medical Decision Making Medical Decision Making [facility] Narrative: 78 yo male with PMH of recurrent esophageal cancer s/p esophagectomy with gastric pull through in 2019 at [facility], remote hx of prostate cancer, states he had a recurrence of his esophageal cancer but was cleared a month ago by Cecilia comes in with c/o acid episode the other night now with c/o cough, sputum, weakness, dizziness and abdominal cramps at this time given complaints will obtain basic labs, EKG, start on zofran, fluids, protonix and obtain CT chest for mass/aspiration, CT abdomen for any signs of anastomosis issue or SBO. Differential Diagnosis Differential Diagnoses: The differential diagnosis associated with the presentation includes aspiration, gastritis, GERD, SBO Admission/Observation Consideration of admission/observation: Escalation of care including admission/observation considered no acute findings. stable for DC. CT scan reassuring. can follow up with Dr. Brooks given 1.7 x 2.2 now 1.7 x 2.6cm he is aware, able to tolerate PO in the ED Lab Data [facility] Lab Attestation statement: I reviewed the patient's lab results. 01/01/24 12:39 01/01/24 12:39 Labs: Lab Results 01/01/24 Range/Units 12:39 WBC 8.3 (4.8-10.8) X10*3/uL RBC 4.85 (4.60-5.80) X10*6/uL Hgb 14.4 (14.0-18.0) g/dl Hct 42.9 (42.0-52.0) % MCV 88.5 (80.0-98.0) fL MCH 29.7 (27.0-33.0) pg MCHC 33.6 (31.0-36.0) g/dl RDW 13.0 (11.0-16.0) % Plt Count 182 (160-400) X10*3/uL MPV 10.6 (9.4-12.4) fL Immature Gran % (Auto) 0.2 (0.0-0.4) % Neut % (Auto) 72.9 (45-73) % Lymph % (Auto) 16.8 L (20-40) % Alcorn % (Auto) 8.3 (2-11) % Eos % (Auto) 1.4 (0-4) % Baso % (Auto) 0.4 (0-2) % Lymph # (Auto) 1.4 (1.2-4.9) X10*3/uL [place]corn # (Auto) 0.7 (0.1-1.2) X10*3/uL Eos # (Auto) 0.1 (0.0-0.4) X10*3/uL Baso # (Auto) 0.0 (0.0-0.2) X10*3/uL Abs Immat Gran (auto) 0.02 (0.00-0.03) X10*3/uL Absolute Neuts (auto) 6.0 (2.0-8.3) x10*3/uL Absolute Nucleated RBC 0.000 (0.0-0.012) X10*3/uL Nucleated RBC % (auto) 0.0 (0.0-0.2) /100WBC PT 12.6 (11.1-13.3) SEC INR 1.0 (0.9-1.1) Sodium 141 (135-145) mmol/L Potassium 4.2 (3.3-5.1) mmol/L Chloride 109 H (96-108) mmol/L Carbon Dioxide 23 (22-29) mmol/L Anion Gap 13 (12-20) BUN 12 (9-16) mg/dL Creatinine 0.97 (0.5-1.4) mg/dL Estim Creat Clear Calc 60.7 Estimated GFR > 60 Fasting Glucose 81 (60-99) mg/dL Calcium 9.2 (8.4-10.2) mg/dL Magnesium 2.1 (1.6-2.6) mg/dL Total Bilirubin 0.5 (0.0-1.0) mg/dL Direct Bilirubin 0.2 (0.0-0.5) mg/dL AST 17 (5-37) U/L ALT 11 (0-40) U/L Alkaline Phosphatase 99 (39-117) U/L Total Protein 6.9 (6.5-8.0) g/dL Albumin 3.7 (3.5-5.0) g/dL Lipase 15 (8-78) U/L Independent Interpretation I performed an independent interpretation of an: EKG and CT Scan (no acute cause) Interpretation: Rate: 66 Rhythm: NSR [place]: left Normal P waves. Normal LUKE. incomplete RBBB ST T wave : normal no OMAR qTC: 461 prior studies: no acute ischemia The study has been interpreted contemporaneously by me. . Radiology Impression Discussion of test interpretation with radiology: I have reviewed the radiologist's reading. Independent Historian Clinical information obtained from an independent historian. History obtained from or confirmed by: EMS External Record Review External record reviewed: Inpatient record and Office record Prescription Management I considered prescription management with: Other Discharge Plan Discharge Clinical Impression: Nausea Gastroesophageal reflux disease Qualifiers: Esophagitis presence: esophagitis presence not specified Qualified Code(s): K21.9 - Gastro-esophageal reflux disease without esophagitis Patient Disposition: Home, Self-Care Instructions: Acute Nausea and Vomiting (ED) Additional Instructions: CT scans no pneumonia, no acute findings, anastomosis stable. the mass near thyroid area was 1.7 x 2.2 today it is 1.7 x 2.6cm so slight increase but sometimes measurements are a little variable. At this time follow up with Dr. Brooks next week given size change return for worsening symptoms or concerns. will start on carafate for the next one week to see if that helps with acid reflux Prescriptions: New ondansetron 4 mg tablet,disintegrating 4 mg PO Q8H PRN (Reason: nausea and vomiting) Qty: 20 0RF sucralfate [Carafate] 100 mg/mL suspension 10 ml PO BID 10 Days Qty: 200 0RF No Action Allergy Relief (cetirizine) 10 mg Capsule 10 mg PO DAILY omeprazole 40 mg Capsule,Delayed Release(Dr/Ec) 40 mg PO BID polyethylene glycol 3350 [Miralax] 17 gram/dose Powder 17 g PO DAILY Centrum Adult 50 Plus 1 tab PO DAILY Colace 1 tab PO DAILY gabapentin 300 mg capsule 600 mg PO BID verapamil 240 mg capsule,ext rel. pellets 24 hr 1 cap PO DAILY lisinopril 20 mg tablet 20 mg PO DAILY Print Language: Uzbek
[2024-01-01] MEDS: ondansetron HCL 4 MG/2 ML VIAL IVPUSH (12:40)
[2024-01-01] MEDS: 0.9 % Sodium Chloride 1,000 ML 999 ML IV (12:40)
[2024-01-01 12:41] LABS: MANUAL DIFF FLAG NO
[2024-01-01 12:43] LABS: Basophils Percent Auto 0.4 % (0-2); Eosinophils Absolute Auto 0.1 X10*3/uL (0.0-0.4); Eosinophils Percent Auto 1.4 % (0-4); Hematocrit 42.9 % (42.0-52.0); Hemoglobin 14.4 g/dl (14.0-18.0); Imm Gran Abs Auto 0.02 X10*3/uL (0.00-0.03); Imm Gran Pct Auto 0.2 % (0.0-0.4); Lymphocytes Absolute Auto 1.4 X10*3/uL (1.2-4.9); Lymphocytes Percent Auto 16.8 % (20-40); Mean Corpuscular HGB Conc 33.6 g/dl (31.0-36.0); Mean Corpuscular Hemoglobin 29.7 pg (27.0-33.0); Mean Corpuscular Volume 88.5 fL (80.0-98.0); Mean Platelet Volume 10.6 fL (9.4-12.4); Monocytes Absolute Auto 0.7 X10*3/uL (0.1-1.2); Monocytes Percent Auto 8.3 % (2-11); Neutrophils Percent Auto 72.9 % (45-73); Platelet Count 182 X10*3/uL (160-400); Red Blood Count 4.85 X10*6/uL (4.60-5.80); White Blood Count 8.3 X10*3/uL (4.8-10.8)
[2024-01-01] MEDS: Pantoprazole Sodium 40 MG/10 ML VIAL IVPUSH (12:43)
[2024-01-01 12:50] LABS: Prothrombin Time 12.6 SEC (11.1-13.3)
[2024-01-01 13:03] LABS: Alanine Aminotransferase 11 U/L (0-40); Albumin Level 3.7 g/dL (3.5-5.0); Alkaline Phosphatase 99 U/L (39-117); Anion Gap 13 (12-20); Aspartate Amino Transferase 17 U/L (5-37); Bilirubin Direct 0.2 mg/dL (0.0-0.5); Bilirubin Total 0.5 mg/dL (0.0-1.0); Blood Urea Nitrogen 12 mg/dL (9-16); Calcium 9.2 mg/dL (8.4-10.2); Carbon Dioxide 23 mmol/L (22-29); Chloride 109 mmol/L (96-108); Creatinine Clr Calc Pharmacy 60.7; Estimated Glomerular Filt Rate > 60; Glucose Fasting 81 mg/dL (60-99); Lipase 15 U/L (8-78); Magnesium 2.1 mg/dL (1.6-2.6); Potassium 4.2 mmol/L (3.3-5.1); Sodium 141 mmol/L (135-145); Total Protein 6.9 g/dL (6.5-8.0)
[2024-01-01] MEDS: iohexoL 350 MG/ML 100 ML INFUS..BTL IV (15:14)
[2024-01-01 16:36] VITALS: BP 154/90; PULSE 76; RESP 16; TEMP 36.4; O2SAT 92
[2024-01-01] MEDS: Magnesium Hydrox/Alum Hydrox 30 ML ORAL.SUSP 15 ML PO (17:01)
[2024-01-01] MEDS: Lidocaine HCl Viscous 2 % 15 ML SOLUTION MUCOUS MEM (17:01)
--- NOTE | 2024-01-01 17:34 | PC.NURSE ---
son jessica called to pick patient up ,stating he will pick patient up in 45 minutes
[2024-01-01 18:31] VITALS: BP 154/90; PULSE 76; RESP 18; TEMP 36.4; O2SAT 98
== END 2024-01-01 18:33 | disposition home or self-care (01) ==
PROVIDERS: Emergency Provider Emergency Medicine; PCP Internal Medicine
DX: K21.9 Gastro-esophageal reflux disease without esophagitis (principal); R11.0 Nausea; R42 Dizziness and giddiness; R93.89 Abnormal findings on diagnostic imaging of other specified body structures; I10 Essential (primary) hypertension; R10.9 Unspecified abdominal pain; Z85.46 Personal history of malignant neoplasm of prostate; Z85.01 Personal history of malignant neoplasm of esophagus
CPT/HCPCS: 36415; 71260; 74177; 80048; 80076; 83690; 83735; 85025; 85610; 93005; 96361; 96374; 96375; 99284; C9113; J2405; Q9967

== ENCOUNTER → 2024-01-01 12:16 | Outpatient (BNV) | payer MEDICARE, SELFPAY | PROVIDERS: Emergency Provider Emergency Medicine; PCP Internal Medicine; Visit Provider Internal Medicine Cardiovascular Disease | DX: R94.31 Abnormal electrocardiogram [ECG] [EKG] (principal) | CPT/HCPCS: 93010 ==

== ENCOUNTER 2024-03-11 03:08 | Inpatient (IN) | payer MEDICARE, SELFPAY ==
--- NOTE | ~2024-03-11 | CT_ITS ---
EXAMINATION: CT ABDOMEN AND PELVIS WITH CONTRAST CLINICAL INFORMATION: Abdominal pain. Nausea/vomiting. Blurred about small bowel obstruction. COMPARISON: 01/01/2024 TECHNIQUE: Multidetector volumetric images were obtained from the superior aspect of the liver through the pubic symphysis following administration 85 mL of Omnipaque 350 intravenous contrast. Sagittal and coronal reformatted images were obtained on the technologist's workstation. Oral contrast: No This CT examination was performed using dose optimization techniques as appropriate, variously including the following: *Automated exposure control *Adjustment of mA and/or kV according to patient size (this includes techniques or standardized protocols for targeted exams where dose is matched to indication/reason for exam; i.e. extremities or head) *Use of iterative reconstruction technique DLP: 554 mGy-cm FINDINGS: LUNG BASES: Mild bibasilar atelectasis. Status post gastric pull-through, partially imaged. Atherosclerotic calcifications are present in the coronary arteries. LIVER, GALLBLADDER, AND BILIARY TREE: The liver is normal in size, shape, and attenuation. Multiple small sharply defined subcentimeter foci of hypoattenuation in hepatic parenchyma is consistent with cysts though too small to characterize. No recommended imaging follow-up. No biliary ductal dilatation is present. The gallbladder is unremarkable with no evidence of radiopaque gallstones, gallbladder wall thickening, or obvious pericholecystic inflammatory changes. PANCREAS: Unremarkable. SPLEEN: Unremarkable. ADRENAL GLANDS: Unremarkable. KIDNEYS AND URETERS: The kidneys are normal in size, shape, and attenuation. No hydronephrosis, hydroureter, or calculi seen. No perinephric stranding. BLADDER: Unremarkable. GASTROINTESTINAL TRACT: Status post gastric pull-through procedure and esophagectomy. There are multiple dilated loops of proximal small bowel bowel in the left mid abdomen measuring up to 4 cm in diameter. There is a focal transition point within a matted region of small bowel loops just deep to the hernia mesh., Most consistent with the site of obstruction and most likely due to adhesions. The distal small bowel is decompressed. No evidence of appendicitis. Moderate to severe diverticulosis in the descending and sigmoid colon without evidence of acute diverticulitis. No intraperitoneal free air or free fluid. ABDOMINAL WALL: Status post mesh repair of a midline ventral abdominal hernia in the supraumbilical region. No fluid collections. LYMPH NODES: Normal. VASCULAR: Atherosclerotic calcifications are present in the abdominal aorta and iliac arteries. No aneurysmal dilatation. PELVIC VISCERA: Status post prostatectomy. OSSEOUS STRUCTURES: [id number] multilevel degenerative disc disease in the lower lumbar spine with more pronounced facet arthropathy. Grade 1 anterolisthesis of L4 on L5. No acute fractures. Moderate osteoarthritis in the right hip and more mild osteoarthritis in the left hip. No acute osseous abnormalities. CT/CT abdomen pelvis w IV con IMPRESSION: 1. Small bowel obstruction with a focal transition point in the left mid abdomen deep to the ventral abdominal herniorrhaphy, most likely due to adhesions. 2. Status post gastric pull-through procedure and esophagectomy. 3. Moderate to severe colonic diverticulosis without evidence of acute diverticulitis. Fleischner guidelines were followed.
[2024-03-11 03:17] VITALS: BP 146/82; BP 147/81; PULSE 71; PULSE 72; RESP 18; TEMP 36.8; O2SAT 96; BMI 24.3
--- OUTSIDE RECORDS SUMMARY | 2024-03-11 03:54 | XMS_ITS ---
Author Organization Matthew Hirsch DO, [facility] Address [address] [place], [place] [id number] Care Team Providers Care Solder Sprayer Name Role Phone JoycelynMatthew fenton Primary Care Provider [phone] REASON FOR VISIT Refills MEDICATIONS Medication SIG (Take, Route, Fr equency, Duration) Notes Start Date End Date Status Gabapentin 300 MG 2 capsules Orally Tw ice a day for 90 days Active Encounters Encounter Location Date Provider Diagnosis [facility] Hirsch DO, [facility] [address], [place] [phone] 02/22/2024 Matthew Hirsch Esophageal carcinoma C15.9 ASSESSMENTS Encounter Date Diagnosis Assessment Notes Treatment Notes Treatment Clinical Notes 02/22/2024 Esophageal carcinoma (ICD-10 - C15.9) PLAN OF TREATMENT Medication Medication Name Sig Start Date Stop Date Notes Gabapentin 300 MG 2 capsules Orally Tw ice a day for 90 days Next Appt Details Provider Name:Matthew byrne, 04/20/2024 01:30:00 PM, [address] [place], [place], [phone],
--- OUTSIDE RECORDS SUMMARY | 2024-03-11 03:54 | XMS_ITS ---
Author Organization Matthew Hirsch DO, [facility] Address [address] [place], [place] [phone] Care Team Providers Care Soil Fertility Extension Specialist Name Role Phone Matthew Hirsch Primary Care Provider [phone] REASON FOR VISIT FYI only Encounters Encounter Location Date Provider Diagnosis Matthew Hirsch DO, FACP [address] [place] [phone] 02/01/2024 Matthew Hirsch PLAN OF TREATMENT Next Appt Details Provider Name:Matthew byrne, 04/20/2024 01:30:00 PM, [address] [place], [place], [phone],
--- OUTSIDE RECORDS SUMMARY | 2024-03-11 03:54 | XMS_ITS ---
Author Organization Matthew Hirsch DO, [facility] Address [address] [place], [place] [id number] Care Team Providers Care Plaster Mechanic Name Role Phone Matthew Hirsch Primary Care Provider REASON FOR VISIT Refill and message MEDICATIONS Medication SIG (Take, Route, Frequency, Duration) Notes Start Date End Date Status Viagra 50 MG 1 tablet as needed Orally Once a day for 30 day(s) No Substitution. Dispense as written. 01/19/2024 Active Encounters Encounter Location Date Provider Diagnosis Matthew Hirsch DO, FACP [address] [place] [phone] 01/22/2024 Matthew Hirsch PLAN OF TREATMENT Medication Medication Name Sig Start Date Stop Date Notes Viagra 50 MG 1 tablet as needed Orally Once a day for 30 day(s) 01/19/2024 No Substitution. Dis pense as written. Next Appt Details Provider Name:Mtathew byrne, 04/20/2024 01:30:00 PM, [address] [place] [address], [phone],
--- OUTSIDE RECORDS SUMMARY | 2024-03-11 03:55 | XMS_ITS ---
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 Role Phone Matthew Hirsch DO Primary Care Provider Unavail able Matthew Powell Unavailable [phone] ALLERGIES No Known Allergies REASON FOR VISIT patient presents today for esophageal dysphagia MEDICATIONS Medication SIG (Take, Route, Frequency, Duration) Notes Start Date End Date Status Omeprazole 40 MG 1 capsule Orally Onc e a day Not-Taking Lisinopril 20 MG 1 tablet Orally Once a day Active MiraLax - as directed Orally A ctive Docusate Sodium 100 MG 1 capsule as need ed Orally twice a day Active Gabapentin 300 MG 3 tablets Oral twice a day Active Centrum Silver Activ e Cetirizine HCl 10 MG 1 tablet Orally Onc e a day for 30 day(s) Active Verapamil HCl 240 MG 2 tablet Orally onc e a day Active Omeprazole 40 MG 1 capsule 30 minutes before morning meal Orally twice a day Active SOCIAL HISTORY Tobacco Use: Social History Observation Description Date Details (start date - stop date) Former Smoker NA - NA Sex Assigned At : Social History Observation Description Sex Assigned At Unknown Tobacco Use/Smoking Question Answer Notes Patient is a former smoker How long has it been since you last smoked? > 10 years Alcohol Screen Question Answer Notes Did you have a drink containing alcohol in the p ast year? No Points 0 Interpretation Negative PROBLEMS Problem Type ICD Code Onset Dates Problem Status W/U Status Risk SNOMED Code Notes Problem Hoarseness (R49.0) Active confirmed 06746959 Problem Pharyngeal dysphagia (R13.13) Active confirmed [id number] Problem Chronic cough (R05.3) Active confirmed [id number] VITAL SIGNS BMI 25.09 kg/m2 08/13/2023 Blood pressure systolic 00 mm Hg 08/13/19 24 Blood pressure diastolic 00 mm Hg 024 Height 68 in 08/13/2023 Temperature 97.7 degrees Fahrenheit 08/13/19 24 Weight 165 lbs 08/13/2023 Encounters Encounter Location Date Provider Diagnosis [facility] [address] [place] [address] 08/13/2023 Matthew Powell Hoarseness R49.0 ; Pharyngeal dysphagia R13.13 ; History of esophageal cancer Z85.01 and Chronic cough R05.3 ASSESSMENTS Encounter Date Diagnosis Assessment Notes Treatment Notes Treatment Clinical Notes 08/13/2023 Hoarseness (ICD-10 - R49.0) Let me know what Dr. Baird says--tell him to send me a report 08/13/2023 Pharyngeal dysphagia (ICD-10 - R13.13) 08/13/2023 History of esophageal cancer (ICD-10 - Z85.01) 08/13/2023 Chronic cough (ICD-10 - R05.3) PLAN OF TREATMENT Treatment Notes Assessment Notes Hoarseness Let me know what Dr. Baird says--tell him to send me a report Pending Test Test Name Order Date XR BARIUM SWALLOW, MODIFIED VIDEO 2023 Next Appt Details Follow Up: prn, Reason: Progress Notes * Examination Category Sub-Category Detail Notes General Examination GENERAL APPEARANCE: pleasant , well nourished, well developed, in no acute distress HEAD: EYES: sclera non-icteric EARS: NOSE: THROAT: NECK/THYROID: no cervical lymphade nopathy, neck supple HEART: S1, S2 normal CHEST: LUNGS: clear to auscultatio n bilaterally ABDOMEN: normal bowel sounds, no guarding or rigidity, no guarding or rigidity, no masses palpable, soft, nontender, nondistended--well-healed scars NEUROLOGIC: alert and oriented SKIN: nonjaundiced, no spi alfredito angiomata EXTREMITIES: no edema PERIPHERAL PULSES: BACK: BREASTS: MUSCULOSKELETAL: MALE GENITOURINARY: LYMPH NODES: RECTAL EXAM: FEMALE GENITOURINARY: ORAL CAVITY: mucosa moist
--- OUTSIDE RECORDS SUMMARY | 2024-03-11 03:55 | XMS_ITS | Patient Health Record ---
Author Organization Matthew Hirsch DO, FACP Address [address], [place] [id number] Care Team Providers Care Supervisor Mapping Name Role Phone Matthew Hirsch Primary Care Provider [phone] ALLERGIES No Known Allergies RESULTS Component Value Reference Range Notes Complete Blood Count Auto Di ff Reviewed date:04/07/2023 03:08:13 PM Interpretation:Abnormal Performing Lab:[facility], [address] [place] [phone] Notes/Report: White Blood Count 4.3 4.8-10.8 X10*3/uL Red Blood Count 4.62 4.60-5.80 X10*6/uL Hemoglobin 13.5 14.0-18.0 g/dl Hematocrit 40.8 42.0-52.0 % Mean Corpuscular Volume 88.3 80.0-98.0 fL Mean Corpuscular Hemoglobin 29.2 27.0-33.0 pg Mean Corpuscular HGB Conc 33.1 31.0-36.0 g/dl Red Cell Distribution Width 13.8 11.0-16.0 % Platelet Count 162 160-400 X10*3/uL Mean Platelet Volume 10.8 9.4-12.4 fL Neutrophils Percent Auto 47.1 45-73 % Imm Gran Pct Auto 0.2 0.0-0.4 % Lymphocytes Percent Auto 34.6 20-40 % Monocytes Percent Auto 13.9 2-11 % Eosinophils Percent Auto 3.7 0-4 % Basophils Percent Auto 0.5 0-2 % NRBC Pct Auto 0.0 0.0-0.2 /100WBC Neutrophils Absolute Auto 2.0 2.0-8.3 x10*3/u L Imm Gran Abs Auto 0.01 0.00-0.03 X10*3/uL Lymphocytes Absolute Auto 1.5 1.2-4.9 X10*3/u L Monocytes Absolute Auto 0.6 0.1-1.2 X10*3/uL Eosinophils Absolute Auto 0.2 0.0-0.4 X10*3/u L Basophils Absolute Auto 0.0 0.0-0.2 X10*3/uL NRBC Abs Auto 0.000 0.0-0.012 X10*3/uL Comprehensive Met. Panel Reviewed date:04/07/2023 03:37:59 PM Interpretation:Abnormal Performing Lab:[facility], [address] [place] [phone] Notes/Report: Sodium 142 135-145 mmol/L Potassium 4.0 3.3-5.1 mmol/L Chloride 110 96-108 mmol/L Carbon Dioxide 27 22-29 mmol/L Anion Gap 9 12-20 Blood Urea Nitrogen 9 9-16 mg/dL Creatinine 0.94 0.5-1.4 mg/dL Creatinine Clr Calc Pharmacy 61.6 eGFR (calculated from the MDRD study equation) and eCrCl (calculated from the Cockcroft-Gault equation) are based on different parameters and may not yield comparable results. If eCrCl result is absurd, please check patient's height/weight. Estimated Glomerular Filt Rate > 60 NOTE: For -Romanian individuals, multiply the result by 1.210. Chronic Kidney Disease: Estimated GFR < 60 mL/min/1.73m2 Severe Kidney Disease: Estimated GFR < 15 mL/min/1.73m2 Glucose Random 105 60-115 mg/dL Calcium 9.0 8.4-10.2 mg/dL Bilirubin Total 0.3 0.0-1.0 mg/dL Aspartate Amino Transferase 19 5-37 U/L Alanine Aminotransferase 13 0-40 U/L Total Protein 6.4 6.5-8.0 g/dL Albumin Level 3.7 3.5-5.0 g/dL Alkaline Phosphatase 105 39-117 U/L Complete Blood Count Auto Di ff Reviewed date:06/05/2023 02:22:33 PM Interpretation:Abnormal Performing Lab:[facility], [address] [place] [phone] Notes/Report: White Blood Count 4.7 4.8-10.8 X10*3/uL Red Blood Count 4.70 4.60-5.80 X10*6/uL Hemoglobin 14.0 14.0-18.0 g/dl Hematocrit 42.5 42.0-52.0 % Mean Corpuscular Volume 90.4 80.0-98.0 fL Mean Corpuscular Hemoglobin 29.8 27.0-33.0 pg Mean Corpuscular HGB Conc 32.9 31.0-36.0 g/dl Red Cell Distribution Width 13.3 11.0-16.0 % Platelet Count 183 160-400 X10*3/uL Mean Platelet Volume 11.3 9.4-12.4 fL Neutrophils Percent Auto 47.4 45-73 % Imm Gran Pct Auto 0.2 0.0-0.4 % Lymphocytes Percent Auto 38.9 20-40 % Monocytes Percent Auto 9.5 2-11 % Eosinophils Percent Auto 3.4 0-4 % Basophils Percent Auto 0.6 0-2 % NRBC Pct Auto 0.0 0.0-0.2 /100WBC Neutrophils Absolute Auto 2.2 2.0-8.3 x10*3/u L Imm Gran Abs Auto 0.01 0.00-0.03 X10*3/uL Lymphocytes Absolute Auto 1.8 1.2-4.9 X10*3/u L Monocytes Absolute Auto 0.4 0.1-1.2 X10*3/uL Eosinophils Absolute Auto 0.2 0.0-0.4 X10*3/u L Basophils Absolute Auto 0.0 0.0-0.2 X10*3/uL NRBC Abs Auto 0.000 0.0-0.012 X10*3/uL Comprehensive Met. Panel Reviewed date:06/05/2023 02:22:33 PM Interpretation:Abnormal Performing Lab:[facility], [address] [place] [phone] Notes/Report: Sodium 142 135-145 mmol/L Potassium 4.2 3.3-5.1 mmol/L Chloride 109 96-108 mmol/L Carbon Dioxide 24 22-29 mmol/L Anion Gap 13 12-20 Blood Urea Nitrogen 10 9-16 mg/dL Creatinine 1.03 0.5-1.4 mg/dL Creatinine Clr Calc Pharmacy 56.2 eGFR (calculated from the MDRD study equation) and eCrCl (calculated from the Cockcroft-Gault equation) are based on different parameters and may not yield comparable results. If eCrCl result is absurd, please check patient's height/weight. Estimated Glomerular Filt Rate > 60 NOTE: For -Romanian individuals, multiply the result by 1.210. Chronic Kidney Disease: Estimated GFR < 60 mL/min/1.73m2 Severe Kidney Disease: Estimated GFR < 15 mL/min/1.73m2 Glucose Random 133 60-115 mg/dL Calcium 9.2 8.4-10.2 mg/dL Bilirubin Total 0.3 0.0-1.0 mg/dL Aspartate Amino Transferase 23 5-37 U/L Alanine Aminotransferase 14 0-40 U/L Total Protein 6.7 6.5-8.0 g/dL Albumin Level 3.7 3.5-5.0 g/dL Alkaline Phosphatase 111 39-117 U/L Creatinine GFR POC Reviewed date:07/24/2023 09:37:08 AM Interpretation:Normal Performing Lab:[facility], [address] [place] [phone] Notes/Report: [id number] 0.85 >60 1520 HO.HAIGHTA Creatinine POC 0.9 0.5-1.4 mg/dL GFR POC > 60 Chronic Kidney Disease: Estimated GFR < 60 mL/min/1.73m2 Severe Kidney Disease: Estimated GFR < 15 mL/min/1.73m2 CT chest w con Reviewed date:07/21/2023 06:34:30 PM Interpretation:Stable Performing Lab: Notes/Report: [address] [address] [address] Scan Report Signed Patient: Yoseph Orellana MR#: [id number] : 1945 Acct:[id number] Age/Sex: 77 / M ADM Date: 07/20/23 Loc: HO.CT Attending Dr: Isabella Brooks MD Ordering Physician: Isabella Brooks MD Date of Service: 07/20/23 Procedure(s): CT chest w IV con Accession Number(s): [id number] cc: Isabella Brooks MD; Matthew Hirsch DO EXAMINATION: CT CHEST WITH CONTRAST CLINICAL INFORMATION: History of esophageal cancer. For surveillance. COMPARISON: CT chest 12/12/2022. TECHNIQUE: Multidetector volumetric CT imaging of the chest was obtained after the administration of 65 mL of Omnipaque 350 intravenous contrast without immediate adverse reactions. Axial MIP volume rendering provided. Sagittal and coronal reformatted images were obtained. This CT examination was performed using dose optimization techniques as appropriate, variously including the following: *Automated exposure control *Adjustment of mA and/or kV according to patient size (this includes techniques or standardized protocols for targeted exams where dose is matched to indication/reason for exam; i.e. extremities or head) *Use of iterative reconstruction technique DLP: 135 mGy-cm FINDINGS: PRODUCTION TECHNOLOGIST: Well-inflated lungs. LUNGS: There is a 2 mm nodule, likely intrabronchiolar focal thickening or debris right upper lobe axial image 78/7, 4 mm tubular intrabronchiolar nodule or debris axial image 108/7. These are stable. No additional nodules or lesion seen. MEDIASTINUM: There is intrathoracic gastric pull-through stomach. The heart size and the great vessels are normal caliber. The thyroid lobes are symmetrical and normal. Central trachea and the bronchi are widely patent. No abnormal size mediastinal or hilar lymph nodes seen. No pericardial effusion. There is trace coronary artery calcification. There is soft tissue density in right superior mediastinum, stable PLEURA: There is no pleural effusion. No pleural mass or thickening. AXILLA: Small shotty lymph nodes seen in bilateral axilla. UPPER ABDOMEN: Visualized liver, spleen, adrenal glands and gallbladder appear unremarkable. OSSEOUS STRUCTURES: No aggressive lytic or sclerotic process seen. There is mild ventral spondylosis mid dorsal spine. There is a right central venous port with its tip in mid SVC. CT/CT chest w IV con IMPRESSION: Intrabronchiolar debris or nodules in the right upper lobe, as described above, are stable. No new nodule seen. Esophagectomy and gastric pull-through is stable. Stable right superior mediastinal soft tissue density. Fleischner guidelines were followed. Dictated By: Byron Mccloud MD Signed By: <Electronically signed by Byron Mccloud MD in OV> 07/21/23 1645 DD/ 1540 TD/TT: Supervisor Particleboard: KARLI FL barium swallow Reviewed date:07/29/2023 05:29:07 PM Interpretation:Abnormal Performing Lab: Notes/Report: [address] [address] Fluoroscopy Report Signed Patient: Yoseph Orellana MR#: [id number] : 1945 Acct:[id number] Age/Sex: 77 / M ADM Date: 07/29/23 Loc: HO.XRAY Attending Dr: Matthew Hirsch DO Ordering Physician: Matthew Hirsch DO Date of Service: 07/29/23 Procedure(s): FL barium swallow Accession Number(s): [id number] cc: Matthew Hirsch DO EXAMINATION: XR FLUOROSCOPY BARIUM SWALLOW CLINICAL INFORMATION: Dysphagia. History of esophageal cancer status post esophagogastrectomy COMPARISON: Barium swallow 11/07/2021 TECHNIQUE: Fluoroscopic air contrast upper GI examination was performed utilizing standard techniques with thin and thick barium and effervescent granules. Numerous spot images were obtained. FINDINGS: A port is present in the right chest wall. Lateral cine images of the oropharynx and hypopharynx demonstrate normal swallow mechanism with normal epiglottic inversion and soft palate elevation. There was a small amount of subglottic aspiration that occurred mid exam. No tracheal aspiration was seen. No nasopharyngeal reflux present. Hypopharyngeal structures appear normal without evidence of mass or diverticulum. There was no significant cricopharyngeal achalasia. Dual and single contrast images of the esophagus demonstrate postoperative changes consistent with prior history of esophagogastrectomy and intrathoracic position of the stomach. No evidence of stricture, mass, or ulcerations identified. Gastroesophageal anastomosis is patent. Esophageal peristalsis was normal. No significant gastroesophageal reflux was seen during the course of the examination and on reflux views. Evaluation of the stomach is limited due to poor coating and pull-through procedure. Grossly no mass, ulceration, or other abnormality is seen. Contrast freely passed into the gastric antrum and duodenal bulb without delay. Single and air-contrast images of the duodenal bulb demonstrate no abnormality. The duodenal sweep has a normal appearance, course, and mucosal fold appearance. The imaged proximal jejunum has a normal fold pattern and caliber. FLUOROSCOPY TIME: 3 minutes 21 seconds Number of Spot Images: 8 Number of Cine: 7 DOSE AREA PRODUCT: 1061 uGy-m2 (microgray-meter squared) FL/FL barium swallow IMPRESSION: 1. Small amount of subglottic barium aspiration that occurred mid examination. 2. Postsurgical changes consistent with prior esophagogastrectomy and intrathoracic addition of the stomach 3. Gastroesophageal anastomosis is patent. No reflux is seen on this examination. 4. Limited evaluation of the stomach due to poor coating, however, no obvious masses, ulcerations, or other abnormalities are seen. If warranted, EGD recommended. This procedure was performed by uQang Watson PA-C, and supervised by Dr. Acosta Dictated By: Martin Acosta MD Signed By: <Electronically signed by Martin Acosta MD in OV> 07/29/23 1611 DD/ 1145 TD/TT: Supervisor Particleboard: PET CT fusion skull to thigh Reviewed date:09/18/2023 05:16:53 PM Interpretation:Abnormal Performing Lab: Notes/Report: [place] [address] PET Report Signed Patient: Yoseph Orellana MR#: [id number] : 1945 Acct:[id number] Age/Sex: 78 / M ADM Date: 09/15/23 Loc: HO.PET Attending Dr: Isabella Brooks MD Ordering Physician: Isabella Brooks MD Date of Service: 09/15/23 Procedure(s): PET CT fusion skull to thigh Accession Number(s): [id number] cc: Isabella Brooks MD; Matthew Hirsch DO EXAMINATION: FLUORINE-18 FDG PET/CT SCAN CLINICAL INFORMATION: Subsequent treatment management. History of esophageal cancer. Follow-up to have right-sided neck mass on outside imaging and right-sided vocal cord palsy also on outside imaging. TECHNIQUE: 77 minutes following the intravenous administration of 17.71 mCi of fluorine 18 FDG, images from the base of skull to mid-thigh were obtained using a combined PET/CT scanner with CT scan based attenuation correction. No intravenous contrast was administered. Transverse, coronal, sagittal, and volume reconstruction projections were obtained. The patient's blood glucose as determined by a finger stick, was 74 mg/dL immediately prior to injection. The radiotracer was injected intravenously through the left antecubital superficial vein, without any complications. Total CT exam dose-length product 754.31 mGy-cm. * These CT images were obtained using dose optimization techniques as appropriate, variously including the following: Automated exposure control * Adjustment of mA and/or kV according to patient size (this includes techniques or standardized protocols for targeted exams where dose is matched to indication/reason for exam; i.e. extremities or head) * Use of iterative reconstruction technique COMPARISON: PET/CT study done on 11/12/2021 and 12/23/2018. FINDINGS: SUV max REFERENCE: Blood: 2.4 (current). 2.2 (11/12/2021). 1.6 (12/23/2018. Liver: 3.3 (current). 3.2 (11/12/2021). 3.0 (12/23/2018). HEAD AND NECK: Note is made of right-sided vocal cord palsy and asymmetric physiologic increased tracer avidity within the left-sided vocal cord. No evidence of any discrete right-sided soft tissue mass or tracer avid disease identified. Previously documented mild tracer avid heterogeneous ill-defined hypodense mass measuring up proximally 4.7 x 3.2 cm with SUV max of 3.6 seen at right lower neck abutting the right lobe of the thyroid gland and producing mass effect over the adjacent part of the trachea (256/512-coronal images), currently measures 3.5 x 1.8 cm with SUV max of 2.3 (59/267). No large intracranial hemorrhage, acute territorial infarct or significant shift of midline structures. CHEST: Ports and Devices: Right-sided Port-A-Cath is noted with its tip seen at the cavoatrial junction. Lungs: No abnormal radiotracer uptake. Pleura: No significant pleural effusion. Lymph Nodes: No tracer-avid mediastinal, hilar or internal mammary or axillary lymphadenopathy. Mediastinum: There is no significant pericardial effusion/thickening. Postsurgical changes of gastric pull-up is noted within the right posterior mediastinum without any tracer avidity at the anastomotic site, unchanged since 11/12/2021. Breasts/Chest Wall: No abnormal radiotracer uptake. ABDOMEN/PELVIS: Liver/Biliary System: No focal tracer-avid liver lesion. The gallbladder appears unremarkable. Pancreas: Normal. Spleen: No abnormal radiotracer uptake. No evidence of splenomegaly. Adrenal Glands: No abnormal radiotracer uptake. Kidneys: No hydronephrosis, hydroureter or renal calculi bilaterally. Bowel: There is no significant bowel dilatation to suggest obstruction. Postsurgical changes are noted within the anterior abdominal wall, unchanged since 11/12/2021. Lymph Nodes: No tracer avid retroperitoneal, mesenteric or pelvic and/or groin lymphadenopathy. Pelvic Organs: The urinary bladder is underdistended. Postsurgical changes are present within the pelvis likely represent prior prostatectomy. No evidence of local disease recurrence. MUSCULOSKELETAL: No suspicious tracer avid osseous disease. VASCULAR: Calcific atherosclerotic disease of the aorta including carotid and coronary artery calcifications. No significant change. THE SITE(S) OF MOST INTENSE FDG AVIDITY AND SUV MAX: Physiologic uptake within the left vocal cord. PET/PET CT fusion skull to thigh IMPRESSION: 1. The index right lower neck soft tissue mass seen on the most recent prior PET CT study done on 11/12/2021 appear smaller in size (previously measured 4.7 x 3.2 cm, currently 3.5 x 1.8 cm) and also shows lower tracer avidity (previous SUV max of 3.6, currently 2.3). Please correlate with detailed interim treatment history. 2. Persistent right-sided vocal cord palsy. 3. No other significant interval change. Specifically, no new abnormalities. Dictated By: George Brown MD Signed By: <Electronically signed by George Brown MD in OV> 09/18/23 1257 DD/ 1030 TD/TT: Supervisor Particleboard: DAWOOD Prostate Specific Antigen Reviewed date:09/29/2023 12:25:21 PM Interpretation:Undetectable Performing Lab:[facility], [address] [place] [phone] Notes/Report: Prostate Specific Antigen < 0.10 <0.05-4.0 ng/mL PSA methodology: Richard Alinity i Chemiluminescent Microparticle Immunoassay (CMIA) Complete Blood Count Auto Di ff Reviewed date:10/14/2023 04:33:51 PM Interpretation:Normal Performing Lab:[address] [phone] Notes/Report: White Blood Count 6.8 4.8-10.8 X10*3/uL Red Blood Count 4.77 4.60-5.80 X10*6/uL Hemoglobin 14.0 14.0-18.0 g/dl Hematocrit 42.2 42.0-52.0 % Mean Corpuscular Volume 88.5 80.0-98.0 fL Mean Corpuscular Hemoglobin 29.4 27.0-33.0 pg Mean Corpuscular HGB Conc 33.2 31.0-36.0 g/dl Red Cell Distribution Width 12.6 11.0-16.0 % Platelet Count 198 160-400 X10*3/uL Mean Platelet Volume 11.0 9.4-12.4 fL Neutrophils Percent Auto 62.0 45-73 % Imm Gran Pct Auto 0.1 0.0-0.4 % Lymphocytes Percent Auto 25.2 20-40 % Monocytes Percent Auto 10.4 2-11 % Eosinophils Percent Auto 1.9 0-4 % Basophils Percent Auto 0.4 0-2 % NRBC Pct Auto 0.0 0.0-0.2 /100WBC Neutrophils Absolute Auto 4.2 2.0-8.3 x10*3/u L Imm Gran Abs Auto 0.01 0.00-0.03 X10*3/uL Lymphocytes Absolute Auto 1.7 1.2-4.9 X10*3/u L Monocytes Absolute Auto 0.7 0.1-1.2 X10*3/uL Eosinophils Absolute Auto 0.1 0.0-0.4 X10*3/u L Basophils Absolute Auto 0.0 0.0-0.2 X10*3/uL NRBC Abs Auto 0.000 0.0-0.012 X10*3/uL Comprehensive Met. Panel Reviewed date:10/14/2023 04:34:57 PM Interpretation:Abnormal Performing Lab:[facility], [address] [place] [phone] Notes/Report: Sodium 142 135-145 mmol/L Potassium 3.8 3.3-5.1 mmol/L Chloride 109 96-108 mmol/L Carbon Dioxide 26 22-29 mmol/L Anion Gap 11 12-20 Blood Urea Nitrogen 10 9-16 mg/dL Creatinine 0.89 0.5-1.4 mg/dL Creatinine Clr Calc Pharmacy 64.0 eGFR (calculated from the MDRD study equation) and eCrCl (calculated from the Cockcroft-Gault equation) are based on different parameters and may not yield comparable results. If eCrCl result is absurd, please check patient's height/weight. Estimated Glomerular Filt Rate > 60 NOTE: For -Romanian individuals, multiply the result by 1.210. Chronic Kidney Disease: Estimated GFR < 60 mL/min/1.73m2 Severe Kidney Disease: Estimated GFR < 15 mL/min/1.73m2 Glucose Random 103 60-115 mg/dL Calcium 8.8 8.4-10.2 mg/dL Bilirubin Total 0.3 0.0-1.0 mg/dL Aspartate Amino Transferase 18 5-37 U/L Alanine Aminotransferase 12 0-40 U/L Total Protein 6.7 6.5-8.0 g/dL Albumin Level 3.7 3.5-5.0 g/dL Alkaline Phosphatase 98 39-117 U/L Basic Metabolic Panel Reviewed date:11/19/2023 10:35:14 AM Interpretation:Normal Performing Lab:[facility], [address] [place] [phone] Notes/Report: Sodium 143 135-145 mmol/L Potassium 4.6 3.3-5.1 mmol/L Chloride 108 96-108 mmol/L Carbon Dioxide 29 22-29 mmol/L Anion Gap 11 12-20 Blood Urea Nitrogen 11 9-16 mg/dL Creatinine 1.28 0.5-1.4 mg/dL Estimated Glomerular Filt Rate 54 NOTE: For -Romanian individuals, multiply the result by 1.210. Chronic Kidney Disease: Estimated GFR < 60 mL/min/1.73m2 Severe Kidney Disease: Estimated GFR < 15 mL/min/1.73m2 Glucose Random 89 60-115 mg/dL Calcium 9.4 8.4-10.2 mg/dL Complete Blood Count Auto Di ff Reviewed date:11/19/2023 08:53:06 AM Interpretation:Normal Performing Lab:[address] [phone] Notes/Report: White Blood Count 5.0 4.8-10.8 X10*3/uL Red Blood Count 4.87 4.60-5.80 X10*6/uL Hemoglobin 14.3 14.0-18.0 g/dl Hematocrit 43.4 42.0-52.0 % Mean Corpuscular Volume 89.1 80.0-98.0 fL Mean Corpuscular Hemoglobin 29.4 27.0-33.0 pg Mean Corpuscular HGB Conc 32.9 31.0-36.0 g/dl Red Cell Distribution Width 13.2 11.0-16.0 % Platelet Count 204 160-400 X10*3/uL Mean Platelet Volume 10.4 9.4-12.4 fL Neutrophils Percent Auto 51.3 45-73 % Imm Gran Pct Auto 0.2 0.0-0.4 % Lymphocytes Percent Auto 31.9 20-40 % Monocytes Percent Auto 12.4 2-11 % Eosinophils Percent Auto 3.6 0-4 % Basophils Percent Auto 0.6 0-2 % NRBC Pct Auto 0.0 0.0-0.2 /100WBC Neutrophils Absolute Auto 2.6 2.0-8.3 x10*3/u L Imm Gran Abs Auto 0.01 0.00-0.03 X10*3/uL Lymphocytes Absolute Auto 1.6 1.2-4.9 X10*3/u L Monocytes Absolute Auto 0.6 0.1-1.2 X10*3/uL Eosinophils Absolute Auto 0.2 0.0-0.4 X10*3/u L Basophils Absolute Auto 0.0 0.0-0.2 X10*3/uL NRBC Abs Auto 0.000 0.0-0.012 X10*3/uL Complete Blood Count Auto Di ff Reviewed date:01/01/2024 01:07:57 PM Interpretation:Normal Performing Lab:[facility], [address] [place] [phone] Notes/Report: White Blood Count 8.3 4.8-10.8 X10*3/uL Red Blood Count 4.85 4.60-5.80 X10*6/uL Hemoglobin 14.4 14.0-18.0 g/dl Hematocrit 42.9 42.0-52.0 % Mean Corpuscular Volume 88.5 80.0-98.0 fL Mean Corpuscular Hemoglobin 29.7 27.0-33.0 pg Mean Corpuscular HGB Conc 33.6 31.0-36.0 g/dl Red Cell Distribution Width 13.0 11.0-16.0 % Platelet Count 182 160-400 X10*3/uL Mean Platelet Volume 10.6 9.4-12.4 fL Neutrophils Percent Auto 72.9 45-73 % Imm Gran Pct Auto 0.2 0.0-0.4 % Lymphocytes Percent Auto 16.8 20-40 % Monocytes Percent Auto 8.3 2-11 % Eosinophils Percent Auto 1.4 0-4 % Basophils Percent Auto 0.4 0-2 % NRBC Pct Auto 0.0 0.0-0.2 /100WBC Neutrophils Absolute Auto 6.0 2.0-8.3 x10*3/u L Imm Gran Abs Auto 0.02 0.00-0.03 X10*3/uL Lymphocytes Absolute Auto 1.4 1.2-4.9 X10*3/u L Monocytes Absolute Auto 0.7 0.1-1.2 X10*3/uL Eosinophils Absolute Auto 0.1 0.0-0.4 X10*3/u L Basophils Absolute Auto 0.0 0.0-0.2 X10*3/uL NRBC Abs Auto 0.000 0.0-0.012 X10*3/uL Prothrombin Time INR Reviewed date:01/01/2024 12:55:22 PM Interpretation:Normal Performing Lab:[address] [phone] Notes/Report: Prothrombin Time 12.6 11.1-13.3 SEC INTERNATIONAL NORM RATIO 1.0 0.9-1.1 INTERNATIONAL NORMALIZED RATIO (INR) REFERENCE RANGES Reference Range For patients not on anticoagulant therapy: 0.9 - 1.1 INR ranges for oral anticoagulant therapy: For prevention and treatment of venous thrombosis and pulmonary embolism: 2.0 - 3.0 For acute myocardial infarction with aspirin therapy: 2.0 - 3.0 For acute myocardial infarction without aspirin therapy: 3.0 - 4.0 For patients with mechanical prosthetic heart valves: 2.5 - 3.5 Liver Panel Reviewed date:01/01/2024 01:09:00 PM Interpretation:Normal Performing Lab:[address] [phone] Notes/Report: Bilirubin Total 0.5 0.0-1.0 mg/dL Bilirubin Direct 0.2 0.0-0.5 mg/dL Aspartate Amino Transferase 17 5-37 U/L Alanine Aminotransferase 11 0-40 U/L Total Protein 6.9 6.5-8.0 g/dL Albumin Level 3.7 3.5-5.0 g/dL Alkaline Phosphatase 99 39-117 U/L Basic Metabolic Panel Fastin g Reviewed date:01/01/2024 01:09:00 PM Interpretation:Normal Performing Lab:[facility], [address] [place] [phone] Notes/Report: Sodium 141 135-145 mmol/L Potassium 4.2 3.3-5.1 mmol/L Chloride 109 96-108 mmol/L Carbon Dioxide 23 22-29 mmol/L Anion Gap 13 12-20 Blood Urea Nitrogen 12 9-16 mg/dL Creatinine 0.97 0.5-1.4 mg/dL Creatinine Clr Calc Pharmacy 60.7 eGFR (calculated from the MDRD study equation) and eCrCl (calculated from the Cockcroft-Gault equation) are based on different parameters and may not yield comparable results. If eCrCl result is absurd, please check patient's height/weight. Estimated Glomerular Filt Rate > 60 NOTE: For -Romanian individuals, multiply the result by 1.210. Chronic Kidney Disease: Estimated GFR < 60 mL/min/1.73m2 Severe Kidney Disease: Estimated GFR < 15 mL/min/1.73m2 Glucose Fasting 81 60-99 mg/dL Calcium 9.2 8.4-10.2 mg/dL Magnesium Reviewed date:01/01/2024 01:09:00 PM Interpretation:Normal Performing Lab:[facility], [address] [place] [phone] Notes/Report: Magnesium 2.1 1.6-2.6 mg/dL Lipase Reviewed date:01/01/2024 01:09:00 PM Interpretation:Normal Performing Lab:[facility], [address] [place] [phone] Notes/Report: Lipase 15 8-78 U/L CT chest w con Reviewed date:01/02/2024 11:16:28 AM Interpretation:Abnormal Performing Lab: Notes/Report: [address] [place] [address] CT Scan Report Signed Patient: Yoseph Orellana MR#: [id number] : 1945 Acct:[id number] Age/Sex: 78 / M ADM Date: 01/01/24 Loc: HO.ED Attending Dr: Ordering Physician: Rebecca Alvarenga DO Date of Service: 01/01/24 Procedure(s): CT chest w IV con Accession Number(s): [id number] cc: Rebecca Alvarenga DO; JoycelynMatthew DYER EXAMINATION: CT CHEST, ABDOMEN AND PELVIS WITH CONTRAST CLINICAL INFORMATION: Abdominal pain. Diarrhea. COMPARISON: 07/20/2023 and 06/19/2022 TECHNIQUE: Multidetector volumetric imaging was performed of the chest, abdomen and pelvis following administration of 85 mL Omnipaque 350 intravenous contrast. Oral contrast was administered. Sagittal and coronal reformatted images were obtained on the technologist's workstation. This CT examination was performed using dose optimization techniques as appropriate, variously including the following: *Automated exposure control *Adjustment of mA and/or kV according to patient size (this includes techniques or standardized protocols for targeted exams where dose is matched to indication/reason for exam; i.e. extremities or head) *Use of iterative reconstruction technique DLP: 737 mGy-cm FINDINGS: CHEST: LUNGS: Moderate centrilobular emphysema. Thickening of the interlobular septi. Bilateral lower lobe bronchiectasis. Scattered areas of mucus plugging. No suspicious pulmonary nodule. Central airways are patent. PLEURA: No pleural effusion. MEDIASTINUM: Irregular soft tissue surrounding the right innominate artery and abutting the posterior right thyroid lobe measuring approximately 1.7 x 2.6 cm. This previously measured 1.7 x 2.2 cm by my measurements on 09/15/2023. Few subcentimeter mediastinal and bilateral hilar lymph nodes. Status post gastric pull-up. Heart size is normal. Great vessels are of normal caliber. No pericardial effusion. CORONARY ARTERY CALCIFICATION: Moderate. CHEST WALL/AXILLA: No axillary or internal mammary lymphadenopathy. Right chest wall Port-A-Cath with tip in the distal SVC. ABDOMEN AND PELVIS: LIVER AND BILIARY TREE: The liver is decreased in attenuation. Few scattered hypodensities too small to characterize. No biliary ductal dilatation. GALLBLADDER: Unremarkable. PANCREAS: Atrophic. SPLEEN: Not enlarged. ADRENAL GLANDS: No adrenal mass. KIDNEYS AND URETERS: Symmetric in size and enhancement. No hydronephrosis or perinephric fluid collection. GASTROINTESTINAL TRACT: Diverticular disease of the sigmoid colon. No small bowel obstruction. VASCULAR: Normal caliber abdominal aorta. LYMPH NODES: No bulky lymphadenopathy. FREE FLUID: No free fluid. BLADDER: Underdistended. PELVIC VISCERA: Status post prostatectomy. OSSEOUS STRUCTURES: No destructive bone lesions. CT/CT chest w IV con IMPRESSION: Stable to slight increase in irregular soft tissue in the right lower neck abutting the posterior aspect of the right thyroid lobe and surrounding the right innominate artery. Continued imaging surveillance is advised. Status post esophagectomy and gastric pull-through. No suspicious pulmonary nodule. No new disease in the abdomen or pelvis. Dictated By: Kosta Campbell MD Signed By: <Electronically signed by Kosta Campbell MD in OV> 01/01/24 1640 DD/ 1510 TD/TT: Supervisor Particleboard: CT abdomen pelvis w con Reviewed date:01/02/2024 11:17:42 AM Interpretation:Abnormal Performing Lab: Notes/Report: [address] [address] [address] Scan Report Signed Patient: Yoseph Orellana MR#: [id number] : 1945 Acct:[id number] Age/Sex: 78 / M ADM Date: 01/01/24 Loc: HO.ED Attending Dr: Ordering Physician: Rebecca Alvarenga DO Date of Service: 01/01/24 Procedure(s): CT abdomen pelvis w IV con Accession Number(s): [id number] cc: Rebecca Alvarenga DO; Matthew Hirsch DO EXAMINATION: CT CHEST, ABDOMEN AND PELVIS WITH CONTRAST CLINICAL INFORMATION: Abdominal pain. Diarrhea. COMPARISON: 07/20/2023 and 06/19/2022 TECHNIQUE: Multidetector volumetric imaging was performed of the chest, abdomen and pelvis following administration of 85 mL Omnipaque 350 intravenous contrast. Oral contrast was administered. Sagittal and coronal reformatted images were obtained on the technologist's workstation. This CT examination was performed using dose optimization techniques as appropriate, variously including the following: *Automated exposure control *Adjustment of mA and/or kV according to patient size (this includes techniques or standardized protocols for targeted exams where dose is matched to indication/reason for exam; i.e. extremities or head) *Use of iterative reconstruction technique DLP: 737 mGy-cm FINDINGS: CHEST: LUNGS: Moderate centrilobular emphysema. Thickening of the interlobular septi. Bilateral lower lobe bronchiectasis. Scattered areas of mucus plugging. No suspicious pulmonary nodule. Central airways are patent. PLEURA: No pleural effusion. MEDIASTINUM: Irregular soft tissue surrounding the right innominate artery and abutting the posterior right thyroid lobe measuring approximately 1.7 x 2.6 cm. This previously measured 1.7 x 2.2 cm by my measurements on 09/15/2023. Few subcentimeter mediastinal and bilateral hilar lymph nodes. Status post gastric pull-up. Heart size is normal. Great vessels are of normal caliber. No pericardial effusion. CORONARY ARTERY CALCIFICATION: Moderate. CHEST WALL/AXILLA: No axillary or internal mammary lymphadenopathy. Right chest wall Port-A-Cath with tip in the distal SVC. ABDOMEN AND PELVIS: LIVER AND BILIARY TREE: The liver is decreased in attenuation. Few scattered hypodensities too small to characterize. No biliary ductal dilatation. GALLBLADDER: Unremarkable. PANCREAS: Atrophic. SPLEEN: Not enlarged. ADRENAL GLANDS: No adrenal mass. KIDNEYS AND URETERS: Symmetric in size and enhancement. No hydronephrosis or perinephric fluid collection. GASTROINTESTINAL TRACT: Diverticular disease of the sigmoid colon. No small bowel obstruction. VASCULAR: Normal caliber abdominal aorta. LYMPH NODES: No bulky lymphadenopathy. FREE FLUID: No free fluid. BLADDER: Underdistended. PELVIC VISCERA: Status post prostatectomy. OSSEOUS STRUCTURES: No destructive bone lesions. CT/CT abdomen pelvis w IV con IMPRESSION: Stable to slight increase in irregular soft tissue in the right lower neck abutting the posterior aspect of the right thyroid lobe and surrounding the right innominate artery. Continued imaging surveillance is advised. Status post esophagectomy and gastric pull-through. No suspicious pulmonary nodule. No new disease in the abdomen or pelvis. Dictated By: Kosta Campbell MD Signed By: <Electronically signed by Kosta Campbell MD in OV> 01/01/24 1640 DD/ 1510 TD/TT: Supervisor Particleboard: REASON FOR REFERRAL Reason Esophageal dysphagia Diagnosis 1 Esophageal dysphagia (R13.10) Referral Organization Matthew Mireles, FACP Referring Provider First Name Matthew Referring Provider Last Name Joycelyn Referring Provider [facility] Referred Provider Matthew Powell Referred Provider Specialty Gastroentero logy General Notes [facility] 10:27:16 AM EST > PLEASE REVIEW FOR EXPEDITED APPOINTMENT. THANKS FOR YOUR HELP!, [facility] 08/12/2023 10:27:26 AM EST > referral faxed. Torie, at Dr. Powell's office, will contact this office with appointment details., [facility] 08/12/2023 01:16:00 PM EST > patient notified. Referral Priority Routine Referral Appointment Date 08/13/2023 Reason Esophageal Dysphagia History of esophageal cancer Diagnosis 1 Esophageal dysphagia (R13.10) Referral Organization Matthew Mireles FACP Referring Provider First Name Matthew Referring Provider Last Name Joycelyn Referring Provider [facility] Referred Provider Estiven Baird Referred Provider Specialty Otology, Lar yngology, Rhinology General Notes [facility] 10:30:30 AM EST > PLEASE REVIEW FOR EXPEDITED APPOINTMENT. PATIENT WILL CALL YOUR OFFICE FOR APPOINTMENT. THANKS FOR YOUR HELP!, [facility] 08/12/2023 10:34:15 AM EST > Dr. Baird's office is closed on Wednesdays and Fridays. Patient is aware this office cannot contact the specialist until Thursday., [facility] 08/21/2023 09:03:04 AM EST > patient notified. Referral not faxed, at specialist's request. Referral Priority Routine Referral Appointment Date 08/24/2023 Reason Esophageal dysphagia Diagnosis 1 Esophageal dysphagia (R13.10) Referral Organization Matthew Mireles FACP Referring Provider First Name Matthew Referring Provider Last Name Joycelyn Referring Provider [facility] Referred Provider [facility] Referred Provider Specialty Audiologists General Notes Emelia Trujillo 02:39:40 PM EDT > Referral faxed prior to scheduling, [facility] 02/10/2024 01:18:46 PM EDT > patient agrees to initial consultation regarding achievable goals. Referral Priority Routine MEDICATIONS Medication SIG (Take, Route, Frequency, Duration) Notes Start Date End Date Status Cetirizine HCl 10 MG 1 tablet Orally Once a day Active Multivitamin - 1 tablet Orally Once a day Active Verapamil HCl ER 240 MG 1 capsule Orally Once a day Active Omeprazole 40 MG 1 capsule Orally Twice a day Active MiraLax 17 GM/SCOOP 1 scoop in a glass of prune juice Orally Once a day Active Gabapentin 300 MG 2 capsules Orally Twice a day for 90 days Active Viagra 50 MG 1 tablet as needed Orally Once a day for 30 day(s) No Substitution. Dispense as written. 01/19/2024 Active IMMUNIZATIONS Vaccine Route Administration Date Status Comme nts Influenza IM Intramuscular 05/16/2011 Administered H1N1 Unknown 11/19/2009 Administered Pneumococcal - PPSV23 Unknown 01/29/2009 Administered Zoster Vaccine Unknown 04/03/2012 Administered Influenza IM Intramuscular 04/20/2012 Administered Influenza Unknown 06/28/2013 Administered Influenza IM Intramuscular 04/28/2014 Administered PCV 13 IM Intramuscular 05/04/2015 Administered Influenza Quad IM Intramuscular 05/04/2015 Administered Influenza High Dose IM Intramuscular 05/02/2016 Administer ed Influenza High Dose IM Intramuscular 05/04/2017 Administer ed Influenza High Dose IM Intramuscular 05/03/2018 Administer ed Influenza Quad IM Intramuscular 06/03/2019 Administered Influenza High Dose IM Intramuscular 04/30/2020 Administer ed Influenza High Dose IM Intramuscular 06/04/2021 Administer ed COVID-19 Moderna Vaccine Unknown 09/08/2020 Administere d COVID-19 Moderna Vaccine Unknown 10/10/2020 Administere d COVID-19 Moderna Vaccine Unknown 06/10/2021 Administere d Influenza High Dose IM Intramuscular 05/21/2022 Administer ed Influnza High Dose Quad Unknown 05/21/2022 Administered Influenza High Dose IM Intramuscular 06/02/2023 Administer ed SOCIAL HISTORY Tobacco Use: Social History Observation Description Date Details (start date - stop date) Former Smoker NA - NA Sex Assigned At : Social History Observation Description Sex Assigned At Unknown Tobacco Use/Smoking Question Answer Notes Patient is a former smoker How long has it been since y ou last smoked? > 10 years Additional Findings: Tobacco Non-User Fo rmer smoker, currently using no form of tobacco Alcohol Screen Question Answer Notes Did you have a drink containing alcohol in the p ast year? No Points 0 Interpretation Negative PROBLEMS Problem Type ICD Code Onset Dates Problem Status W/U Status Risk SNOMED Code Notes Problem Essential hypertensi on (I10) Active confirmed 04924131 Problem Erectile dysfunction , unspecified erectile dysfunction type (N52.9) Active confirmed 007446254 Problem Neuropathy (G62.9) Active confirmed 386 703128 Problem History of prostate cancer (Z85.46) Active confirmed 686602211 Problem Incisional hernia, without obstruction or gangrene (K43.2) Active confirmed 828530281 Problem Hypercholesterolemia (E78.00) Active confirmed 33236434 Problem Esophageal dysphagia (R13.10) Active confirmed 77275455 Problem Allergic rhinitis, unspecified seasonality, unspecified trigger (J30.9) Active confirmed 39983115 Problem Esophageal carcinoma (C15.9) Active confirmed 952436763 Problem Pressure injury of sacral region, stage 1 (L89.151) Active confirmed 574668649 Problem SBO (small bowel obstruction) (K56.609) Active confirmed 051139673 Problem Vocal cord paralysis (J38.00) Active confirmed 095356054 VITAL SIGNS Blood pressure diastolic 68 mm Hg 06/02/2023 Height 66.75 in 06/02/2023 Blood pressure systolic 122 mm Hg 06/02/2023 Weight 172 lbs 06/02/2023 BMI 27.14 kg/m2 06/02/2023 Encounters Encounter Location Date Provider Diagnosis Matthew Hirsch DO [facility] [address] [place], [place] [id number] 06/02/2023 Matthew Hirsch Esophageal carcinoma C15.9 ; Essential hypertension I10 ; Allergic rhinitis, unspecified seasonality, unspecified trigger J30.9 and Erectile dysfunction, unspecified erectile dysfunction type N52.9 Matthew Hirsch DO, [facility] [address] [place], [place] [id number] 01/19/2024 Matthew Hirsch Esophageal dysphagia R13.10 ; Essential hypertension I10 ; Esophageal carcinoma C15.9 and Allergic rhinitis, unspecified seasonality, unspecified trigger J30.9 Matthew Hirsch DO, [facility] [address] [place], [place] [id number] 11/17/2023 Matthew Hirsch Esophageal dysphagia R13.10 ; Vocal cord paralysis J38.00 ; Essential hypertension I10 ; Allergic rhinitis, unspecified seasonality, unspecified trigger J30.9 ; SBO (small bowel obstruction) K56.609 ; Erectile dysfunction, unspecified erectile dysfunction type N52.9 and Esophageal carcinoma C15.9 Matthew Hirsch DO, FACP [address] [place], [place] [id number] 06/15/2023 Matthew Hirsch Esophageal carcinoma C15.9 Matthew Patinoman DO, [facility] [address] [place], [place] [id number] 06/15/2023 Matthew Hirsch DO, [address] [id number] 06/29/2023 Matthew Hirsch Esophageal carcinoma C15.9 and Esophageal dysphagia R13.10 Matthew Hdez Joycelyn DO, [facility] [address] [place], [place] [id number] 07/13/2023 Matthew Hirsch Esophageal carcinoma C15.9 Matthew Hdez Joycelyn DO, [address] [id number] 08/11/2023 Matthew Patinoman Matthew Ketty Hirsch DO, [address] [id number] 09/10/2023 Matthew Hdez Joycelyn DO, [address] [id number] 10/09/2023 Matthew Hirsch Matthew Ketty Hirsch DO, [address] [id number] 10/26/2023 Matthew Hirsch Esophageal carcinoma C15.9 Matthew Patinoman DO, [address] [id number] 01/18/2024 Matthew Hirsch Esophageal dysphagia R13.10 Matthew Hdez Joycelyn DYER, [address] [id number] 01/20/2024 Matthew Hdez Joycelyn DO, [address] [id number] 01/22/2024 Matthew Hirsch Matthew Hdez Joycelyn DYER, [address] [id number] 02/01/2024 Matthew Patinoman Matthew Hdez Joycelyn DYER, [address] [id number] 02/22/2024 Matthew Hirsch Esophageal carcinoma C15.9 ASSESSMENTS Encounter Date Diagnosis Assessment Notes Treatment Notes Treatment Clinical Notes 06/02/2023 Essential hypertension (ICD-10 - I10) 06/02/2023 Esophageal carcinoma (ICD-10 - C15.9) May increase the gabapentin and see if it helps with the neuropathy 01/19/2024 Essential hypertension (ICD-10 - I10) Check BP in the office next week 01/19/2024 Esophageal dysphagia (ICD-10 - R13.10) 11/17/2023 Esophageal dysphagia (ICD-10 - R13.10) 11/17/2023 Vocal cord paralysis (ICD-10 - J38.00) If Yoseph's lab work and EKG are reasonable he will be an acceptable candidate for the proposed surgical procedure and will be medically cleared for surgery 06/15/2023 Esophageal carcinoma (ICD-10 - C15.9) 06/29/2023 Esophageal dysphagia (ICD-10 - R13.10) 06/29/2023 Esophageal carcinoma (ICD-10 - C15.9) 07/13/2023 Esophageal carcinoma (ICD-10 - C15.9) 10/26/2023 Esophageal carcinoma (ICD-10 - C15.9) 01/18/2024 Esophageal dysphagia (ICD-10 - R13.10) 02/22/2024 Esophageal carcinoma (ICD-10 - C15.9) 06/02/2023 Allergic rhinitis, unspecified seasonality, unspecified trigger (ICD-10 - J30.9) 01/19/2024 Esophageal carcinoma (ICD-10 - C15.9) 11/17/2023 Essential hypertension (ICD-10 - I10) 06/02/2023 Erectile dysfunction, unspecified erectile dysfunction type (ICD-10 - N52.9) 01/19/2024 Allergic rhinitis, unspecified seasonality, unspecified trigger (ICD-10 - J30.9) 11/17/2023 Allergic rhinitis, unspecified seasonality, unspecified trigger (ICD-10 - J30.9) 11/17/2023 SBO (small bowel obstruction) (ICD-10 - K56.609) 11/17/2023 Erectile dysfunction, unspecified erectile dysfunction type (ICD-10 - N52.9) 11/17/2023 Esophageal carcinoma (ICD-10 - C15.9) PLAN OF TREATMENT Pending Test Test Name Order Date Electrocardiogram (EKG) 11/17/2023 Next Appt Details Provider Name:Matthew byrne, 04/20/2024 01:30:00 PM, [address] [place] [address], [phone], Insurance Providers Payer Name Payer Address Payer Phone Subscriber Number Group Number Insured Name Patient Relationship to Insured Coverage Start Date Coverage End Date [employer]- MEDICARE [address] [place] [phone] [id number] Magdyangelcinthia Yoseph Self - patient is the insured 1 MEDICAL (GENERAL) HISTORY Medical History History ICD Code hypertension hypercholesterolemia gastroesophageal reflux disease (GERD) cervical strain cervical spondylosis low back pain osteoarthritis Vitamin B 12 deficiency gout prostate cancer allergic rhinitis anxiety diverticulosis tendonitis melanoma Esophageal dysphagia R13.10 esophageal cancer SBO (small bowel obstruction) K56.609 Surgical History Surgery Date(Month/Year) radical prostatectomy arthroscopic knee surgery, r ight knee, secondary to a torn right medial meniscus appendectomy, age 1 hemorrhoidectomy, twice melanoma excision colonoscopy, diverticulosis, internal he morrhoids 08/2009 trigger finger release esophagectomy
--- OUTSIDE RECORDS SUMMARY | 2024-03-11 03:55 | XMS_ITS | Patient Health Record ---
Author Organization [facility] Address [address] [place] [address] Care Team Providers Care Violin Teacher Name Role Phone Matthew Hirsch DO Primary Care Provider Unavail able Matthew Powell Unavailable [phone] ALLERGIES No Known Allergies RESULTS Component Value Reference Range Notes FL barium swallow modified Reviewed date:10/27/2023 10:59:30 PM Interpretation: Performing Lab: Notes/Report: [address] [address] Fluoroscopy Report Signed Patient: Fuad Orellana MR#: [id number] : 1945 Acct:[id number] Age/Sex: 78 / M ADM Date: 09/09/23 Loc: [facility] Attending Dr: Matthew Powell MD Ordering Physician: Matthew Powell Date of Service: 09/09/23 Procedure(s): FL barium swallow modified Accession Number(s): [id number] cc: Matthew Powell EXAMINATION: Modified Barium Swallows CLINICAL INFORMATION: Mild aspiration seen on recent barium swallow study 07/29/2023; history of esophageal CA, hoarseness, pharyngeal dysphagia, chronic cough. COMPARISON: None TECHNIQUE: Modified barium swallow was performed under lateral fluoroscopy with patient in standing position. Different consistency of barium mixed with solids and liquids of varying consistencies was administered by the speech therapist. Exam was recorded in the fluoroscopy suite. FINDINGS: There was trace laryngeal penetration with thin liquids above the true vocal cords. No subglottic aspiration was seen during this examination. FLUOROSCOPY TIME: 1 minute 48 seconds Number of Spot Images: 1 DOSE AREA PRODUCT: 637.9 uGy-m2 (microgray-meter squared) FL/FL barium swallow modified IMPRESSION: Trace laryngeal penetration with thin liquids above the vocal cords. No subglottic aspiration was seen during this examination. Refer to the full speech therapy report for further clarification. This procedure was performed by Quang Watson PA-C, and supervised by Dr. Acosta Dictated By: Martin Acosta MD Signed By: <Electronically signed by Martin Acosta MD in OV> 10/05/23 1124 DD/ 1507 TD/TT: Business Solutions Director: REASON FOR REFERRAL No Information MEDICATIONS Medication SIG (Take, Route, Frequency, Duration) Notes Start Date End Date Status MiraLax - as directed Orally A ctive Docusate Sodium 100 MG 1 capsule as need ed Orally twice a day Active Gabapentin 300 MG 3 tablets Oral twice a day Active Centrum Silver Activ e Omeprazole 40 MG 1 capsule Orally Onc e a day Not-Taking Verapamil HCl 240 MG 2 tablet Orally onc e a day Active Lisinopril 20 MG 1 tablet Orally Once a day Active Cetirizine HCl 10 MG 1 tablet Orally Onc e a day for 30 day(s) Active Omeprazole 40 MG 1 capsule 30 minutes before morning meal Orally twice a day Active IMMUNIZATIONS Vaccine Route Administration Date Status Comme nts Influenza Unknown 05/18/2018 Administered Influenza Unknown 05/10/2019 Administered Influenza Unknown 05/30/2020 Administered SOCIAL HISTORY Tobacco Use: Social History Observation [...] W/U Status Risk SNOMED Code Notes Problem Esophageal dysphagia (R13.10) Active confirmed 47254429 Problem Gastroesophageal reflux disease, esophagitis presence not specified (K21.9) Active confirmed 753015434 Problem Abnormal upper gastrointestinal barium series (R93.3) Active confirmed 889127378 Problem 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) Active confirmed 699517455 Problem History of esophageal cancer (Z85.01) Active confirmed 582298254 Problem Small bowel obstruction (K56.609) Active confirmed 423750242 Problem Constipation, unspecified constipation type (K59.00) Active confirmed 71288528 Problem Dysphagia (R13.10) Active confirmed Dys phagia (75555068) Problem Personal history of malignant neoplasm of esophagus (Z85.01) Active confirmed History of malignant neoplasm of esophagus (188367272) Problem Hoarseness (R49.0) Active confirmed 502 [address] Problem Pharyngeal dysphagia (R13.13) Active confirmed 94995405757362 Problem Chronic cough (R05.3) Active confirmed 84620908 VITAL SIGNS Temperature 97.7 degrees Fahrenheit 08/13/2023 Blood pressure diastolic 00 mm Hg 08/13/2023 Height 68 in 08/13/2023 Blood pressure systolic 00 mm Hg 08/13/2023 Weight 165 lbs 08/13/2023 BMI 25.09 kg/m2 08/13/2023 Encounters Encounter Location Date Provider Diagnosis [facility] [address] [place] [address] 08/13/2023 Matthew Powell Hoarseness R49.0 ; Pharyngeal dysphagia R13.13 ; History of esophageal cancer Z85.01 and Chronic cough R05.3 [facility] [address] [place] [address] 08/12/2023 Matthew Powell ASSESSMENTS Encounter Date Diagnosis Assessment Notes Treatment Notes Treatment Clinical Notes 08/13/2023 Pharyngeal dysphagia (ICD-10 - R13.13) 08/13/2023 Hoarseness (ICD-10 - R49.0) Let me know what Dr. Baird says--tell him to send me a report 08/13/2023 History of esophageal cancer (ICD-10 - Z85.01) 08/13/2023 Chronic cough (ICD-10 - R05.3) PLAN OF TREATMENT Pending Test Test Name Order Date XR BARIUM SWALLOW, MODIFIED VIDEO 2023 Future Test Test Name Order Date UPPER GI ENDOSCOPY BALLOOON DILATION OF ESOPH 07/28/2018 UPPER GI ENDOSCOPY BALL[place]ON DILATION OF ESOPH 01/22/2021 Insurance Providers Payer Name Payer Address Payer Phone Subscriber Number Group Number Insured Name Patient Relationship to Insured Coverage Start Date Coverage End Date [facility] [address] [facility] [place], [place] [phone] [id number] NORMANDI N, FUAD Self - patient is the insured MEDICAL (GENERAL) HISTORY Medical History History ICD Code Denies [place],DM,CVA,Lung disease,renal dise ase Prostate cancer--surgery as below HTN Hyperlipidemia Negative screening colonoscopies in 1998 and in 2009 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 Brooks--surgery with Dr. 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 Surgical History Surgery Date(Month/Year) Prostatectomy for prostate cancer in 200 5 Appendectomy Knee surgery Distal esophagectomy laparoscopically as above 02/2019 Incisional hernia repair with a mesh-Dr. Jj 09/2019
--- OUTSIDE RECORDS SUMMARY | 2024-03-11 03:55 | XMS_ITS ---
Author Organization [facility] Address [address] [place] [address] Care Team Providers Care Senior Compliance Officer Name Role Phone Matthew Hirsch DO Primary Care Provider Unavail able Matthew Powell Unavailable [phone] REASON FOR VISIT requesting soon appt pt with dysphagia/hx of esophageal ca Encounters Encounter Location Date Provider Diagnosis [facility] [address] [place] [address] 08/12/2023 Matthew Powell PLAN OF TREATMENT No Information
[2024-03-11] MEDS: ondansetron HCL 4 MG/2 ML VIAL IVPUSH (04:00)
[2024-03-11] MEDS: 0.9 % Sodium Chloride 1,000 ML 999 ML IV (04:00)
--- NOTE | 2024-03-11 04:00 | ED_ITS ---
HPI - Abdominal Pain General Chief Complaint: Abdominal Pain Stated Complaint: ABDOMINAL PAIN/GI BLOCK Time Seen by Provider: 03/11/24 03:41 Source: patient, family, EMS and old records reviewed Mode of arrival: EMS Limitations: no limitations History of Present Illness ED Provider: LARRY PELAYO narrative: 78 yo male with PMH of esophageal adenocarcinoma s/p distal esophagectomy with gastric pull through in 2019 at [facility], prostate cancer, recurrence of esophageal cancer follows with Dr. Brooks no current treatment, hx of SBO in past that responded to medical management. Notes that he developed loose stool x 2 yesterday that stopped then his typical crampy abdominal pain with nausea. No flatus. Pain comes and goes. He is worried about SBO. MD elicited complaint: abdominal pain Pertinent past history: other (SBO) Onset (ago): day(s) (yesterday) Pain Consistency: intermittent Location: diffuse Severity: moderate Quality: aching and fullness Radiation: none Migration to: no migration Exacerbating factors: eating and movement Relieving factors: nothing Context: history of similar episodes Associated symptoms: nausea Related Data Home Medications ?Medication ?Instructions ?Recorded ?Confirmed cetirizine 10 mg capsule (Allergy 10 mg PO DAILY 05/23/20 10/14/23 Relief (cetirizine)) verapamil 240 mg 24 hr 1 cap PO DAILY 11/27/21 10/14/23 capsule,extended release lisinopril 20 mg tablet 20 mg PO DAILY 07/23/22 10/14/23 omeprazole 40 mg capsule,delayed 40 mg PO BID 06/05/23 10/14/23 release polyethylene glycol 3350 17 17 g PO DAILY 06/05/23 10/14/23 gram/dose oral powder (Miralax) Centrum Adult 50 Plus 1 tab PO DAILY 10/14/23 10/14/23 Colace 1 tab PO DAILY 10/14/23 10/14/23 gabapentin 300 mg capsule 600 mg PO BID 11/18/23 Previous Rx's ?Medication ?Instructions ?Recorded ondansetron 4 mg disintegrating 4 mg PO Q8H PRN nausea and 01/01/24 tablet vomiting #20 tabs sucralfate 100 mg/mL oral 10 ml PO BID 10 days #200 mL 01/01/24 suspension (Carafate) Allergies Allergy/AdvReac Type Severity Reaction Status Date / Time No Known Allergies Allergy Verified 03/11/24 03:20 [No Known Allergies*] Review of Systems Review of Systems Constitutional : No Weight loss, No Fever, No Chills ENT/Mouth : No sore throat, No Rhinorrhea Eyes: No Swelling, No Redness Cardiovascular : No Chest Pain, No SOB, NoEdema Respiratory : No Cough, No Sputum, No Wheezing Gastrointestinal : Positive Nausea, no Vomiting, no Diarrhea, positive abdominal Pain, No Hematochezia, No Melena Genitourinary : No Dysuria, No Urinary Frequency, No Hematuria, No Urgency Musculoskeletal : No joint pain, No Myalgias, No Joint Swelling Skin : No Skin Lesions, No rash Neuro : No Weakness, No Numbness, No Dizziness, No Headache All other systems reviewed and are negative. [facility] Past Medical History Attestation statement: The following information was validated with the patient. 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 GERD (gastroesophageal reflux disease) Constipation Throat mass Mass of right side of neck Personal history of nicotine dependence History of prostate cancer (~2004) History of small bowel obstruction (~2019) Shingles Vitamin B12 deficiency Diverticulosis (~1998) Osteoarthritis Basal cell carcinoma, scalp/neck Cervical spondylosis Hypercholesterolemia Hypertension Melanoma Esophageal adenocarcinoma (~2017) Surgical History History of hemorrhoidectomy (~1993) History of esophagogastroduodenoscopy (EGD) History of colonoscopy History of meniscectomy of right knee (~2003) History of esophagectomy (~2018) History of jejunostomy tube placement (~2018) History of incisional hernia repair (~2019) History of appendectomy History of prostatectomy (~2004) Family History Family History Son Non-Hodgkin lymphoma Father Prostate cancer Mother No problems noted. Social History Social History Household Members: Spouse Housing: Condominium Are you a primary eye care professional to a significant other at home: No Do you presently have visiting nurse or other home services: No Alcohol intake: former Patient Tobacco Use Status: Former Tobacco user Years Smoked: 35 Smoked in Last 30 Days: No Second Hand Smoke Exposure: No Use of substances other than those prescribed or required for medical reasons: No Advance Directives: Yes Advance Directives on File: Yes Advance Directives Date on File: 12/04/21 Do you have a plan to hurt others: No Plan service: Yes Current occupational status: retired Current occupation: rt handed Physical Exam ED Vital Signs: Vital Signs - 24 hr 03/11/24 03:17 03/11/24 05:11 Temperature 98.2 F 97.8 F Pulse Rate 71 67 Respiratory Rate 18 19 Blood Pressure 147/81 H 135/72 Pulse Oximetry 96 93 Oxygen Delivery Method Room Air Room Air BMI result Body Mass Index 24.3 Appearance: Alert. Oriented X3. No acute distress. Eyes: Pupils equal, round and reactive to light. ENT: Pharynx normal. Neck: Normal inspection. Neck supple. CVS: Normal heart rate and rhythm. Pulses normal. Respiratory: No respiratory distress. Breath sounds normal. Abdomen: Soft mild distention no rebound mild diffuse ttp Skin: Skin warm and dry. Normal skin color. Normal skin turgor. Extremities: No lower extremity edema. No calf ttp Neuro: Oriented X 3. No motor deficit. No sensory deficit. Medical Decision Making Medical Decision Making MDM Narrative: 78 yo male with PMH of esophageal adenocarcinoma s/p distal esophagectomy with gastric pull through in 2019 at [facility], prostate cancer, recurrence of esophageal cancer follows with Dr. Brooks no current treatment, hx of SBO here with abdominal pain nausea and lack of BM and flatus since loose stools yesterday AM he is worried about SBO as this has happened to him before. He has no CP/SOB or fevers. Differential Diagnosis Differential Diagnoses: The differential diagnosis associated with the presentation includes abdominal pain, SBO, constipation Admission/Observation Consideration of admission/observation: Escalation of care including admission/observation considered admit for SBO Consult Healthcare Provider Management of the patient was discussed with: Ash Conveyor Operator (Bri canas will admit) Lab Data [facility] Lab Attestation statement: I reviewed the patient's lab results. 03/11/24 03:58 03/11/24 03:58 Labs: Lab Results 03/11/24 03/11/24 Range/Units 03:58 04:46 WBC 9.9 (4.8-10.8) X10*3/uL RBC 4.94 (4.60-5.80) X10*6/uL Hgb 14.1 (14.0-18.0) g/dl Hct 42.3 (42.0-52.0) % MCV 85.6 (80.0-98.0) fL MCH 28.5 (27.0-33.0) pg MCHC 33.3 (31.0-36.0) g/dl RDW 13.6 (11.0-16.0) % Plt Count 208 (160-400) X10*3/uL MPV 10.5 (9.4-12.4) fL Immature Gran % (Auto) 0.2 (0.0-0.4) % Neut % (Auto) 76.1 H (45-73) % Lymph % (Auto) 11.7 L (20-40) % Cochran % (Auto) 10.2 (2-11) % Eos % (Auto) 1.5 (0-4) % Baso % (Auto) 0.3 (0-2) % Lymph # (Auto) 1.2 (1.2-4.9) X10*3/uL Cochran # (Auto) 1.0 (0.1-1.2) X10*3/uL Eos # (Auto) 0.2 (0.0-0.4) X10*3/uL Baso # (Auto) 0.0 (0.0-0.2) X10*3/uL Abs Immat Gran (auto) 0.02 (0.00-0.03) X10*3/uL Absolute Neuts (auto) 7.5 (2.0-8.3) x10*3/uL Absolute Nucleated RBC 0.000 (0.0-0.012) X10*3/uL Nucleated RBC % (auto) 0.0 (0.0-0.2) /100WBC Sodium 141 (135-145) mmol/L Potassium 3.9 (3.3-5.1) mmol/L Chloride 108 (96-108) mmol/L Carbon Dioxide 25 (22-29) mmol/L Anion Gap 12 (12-20) BUN 11 (9-16) mg/dL Creatinine 1.03 (0.5-1.4) mg/dL Estim Creat Clear Calc 55.3 Estimated GFR > 60 Random Glucose 101 (60-115) mg/dL Calcium 8.7 (8.4-10.2) mg/dL Magnesium 2.0 (1.6-2.6) mg/dL Total Bilirubin 0.4 (0.0-1.0) mg/dL Direct Bilirubin 0.1 (0.0-0.5) mg/dL AST 16 (5-37) U/L ALT 10 (0-40) U/L Alkaline Phosphatase 95 (39-117) U/L Total Protein 6.3 L (6.5-8.0) g/dL Albumin 3.6 (3.5-5.0) g/dL Lipase 16 (8-78) U/L Urine Color Yellow Urine Appearance Clear Urine pH 5.5 (5.0-9.0) Ur Specific [place] 1.025 (1.005-1.025) Urine Protein Negative (Neg-Trace) mg/dL Urine Glucose (UA) Negative (Negative) mg/dL Urine Ketones Negative (Negative) mg/dL Urine Blood Negative (Negative) Urine Nitrite Negative (Negative) Ur Leukocyte Esterase Negative (Negative) Independent Interpretation I performed an independent interpretation of an: CT Scan (SBO) Radiology Impression Discussion of test interpretation with radiology: I have reviewed the radiologist's reading. Independent Historian Clinical information obtained from an independent historian. History obtained from or confirmed by: Spouse External Record Review External record reviewed: Inpatient record Medications Administered Discontinued Medications Generic Name Dose Route Start Last Admin Trade Name Freq PRN Reason Stop Dose Admin Sodium Chloride 1,000 mls @ 999 mls/hr 03/11/24 03:47 03/11/24 05:01 Ns IV 03/11/24 04:47 Infused .Q1H1M ONE Infusion Iohexol 85 ml 03/11/24 04:50 03/11/24 04:50 Iohexol 350 Mg/Ml 100 Ml Infus..Btl IV 03/11/24 04:51 85 ml ONCE ONE Administration Morphine Sulfate 2 mg 03/11/24 03:47 03/11/24 04:01 Morphine Sulfate 2 Mg/Ml Cartridge IVPUSH 03/11/24 03:48 2 mg ONCE ONE Administration Protocol Ondansetron HCl 4 mg 03/11/24 03:47 03/11/24 04:00 Ondansetron Hcl 4 Mg/2 Ml Vial IVPUSH 03/11/24 03:48 4 mg ONCE ONE Administration Discharge Plan Discharge Clinical Impression: Small bowel obstruction Patient Disposition: Admitted As Inpatient Print Language: Bruneian
[2024-03-11] MEDS: Morphine Sulfate 2 MG/ML CARTRIDGE IVPUSH (04:01)
[2024-03-11 04:08] LABS: MANUAL DIFF FLAG NO
[2024-03-11 04:09] LABS: Basophils Percent Auto 0.3 % (0-2); Eosinophils Absolute Auto 0.2 X10*3/uL (0.0-0.4); Eosinophils Percent Auto 1.5 % (0-4); Hematocrit 42.3 % (42.0-52.0); Hemoglobin 14.1 g/dl (14.0-18.0); Imm Gran Abs Auto 0.02 X10*3/uL (0.00-0.03); Imm Gran Pct Auto 0.2 % (0.0-0.4); Lymphocytes Absolute Auto 1.2 X10*3/uL (1.2-4.9); Lymphocytes Percent Auto 11.7 % (20-40); Mean Corpuscular HGB Conc 33.3 g/dl (31.0-36.0); Mean Corpuscular Hemoglobin 28.5 pg (27.0-33.0); Mean Corpuscular Volume 85.6 fL (80.0-98.0); Mean Platelet Volume 10.5 fL (9.4-12.4); Monocytes Percent Auto 10.2 % (2-11); Neutrophils Absolute Auto 7.5 x10*3/uL (2.0-8.3); Neutrophils Percent Auto 76.1 % (45-73); Platelet Count 208 X10*3/uL (160-400); Red Blood Count 4.94 X10*6/uL (4.60-5.80); Red Cell Distribution Width 13.6 % (11.0-16.0); White Blood Count 9.9 X10*3/uL (4.8-10.8)
[2024-03-11 04:25] LABS: Alanine Aminotransferase 10 U/L (0-40); Albumin Level 3.6 g/dL (3.5-5.0); Alkaline Phosphatase 95 U/L (39-117); Anion Gap 12 (12-20); Aspartate Amino Transferase 16 U/L (5-37); Bilirubin Direct 0.1 mg/dL (0.0-0.5); Bilirubin Total 0.4 mg/dL (0.0-1.0); Blood Urea Nitrogen 11 mg/dL (9-16); Calcium 8.7 mg/dL (8.4-10.2); Carbon Dioxide 25 mmol/L (22-29); Chloride 108 mmol/L (96-108); Creatinine Clr Calc Pharmacy 55.3; Estimated Glomerular Filt Rate > 60; Glucose Random 101 mg/dL (60-115); Lipase 16 U/L (8-78); Potassium 3.9 mmol/L (3.3-5.1); Sodium 141 mmol/L (135-145); Total Protein 6.3 g/dL (6.5-8.0)
--- NOTE | 2024-03-11 04:31 | MHC.EDTECH ---
Late entry,at 316 patient was BIBA,changed into hospital attire vitals taken, at bedside call mina in reach
[2024-03-11] MEDS: iohexoL 350 MG/ML 100 ML INFUS..BTL 85 ML IV (04:50)
[2024-03-11 04:57] LABS: Appearance Urine Clear; Color Urine Yellow; Glucose Urine UA Negative (Negative); Leukocyte Esterase Urine Negative (Negative); Nitrite Urine Negative (Negative); PH 5.5 (5.0-9.0); Specific Gravity - Urine 1.025 (1.005-1.025); Urine Blood Negative (Negative); Urine Ketones Negative (Negative); Urine Protein Negative (Neg-Trace)
[2024-03-11 05:11] VITALS: BP 135/72; PULSE 67; RESP 19; TEMP 36.6; O2SAT 93
--- NOTE | 2024-03-11 05:11 | MHC.EDTECH ---
Rounds and vitals completed, at bedside call mina in reach
--- NOTE | 2024-03-11 07:31 | PM.HPGS ---
History of Present Illness History of Present Illness Date of Service: 03/11/24 Chief complaint: Small-bowel obstruction due to adhesions Narrative: Yoseph Orellana is a 78 year old male presenting with complaints of abdominal pain in the lower abdomen associated with nausea and vomiting. He reports 2 episodes of diarrhea yesterday but no flatus. He has not passed any gas or bowels since coming to the emergency department. He has a previous history of esophageal CA and previously underwent radiation therapy. He underwent an esophagectomy with gastric pull-through. He also underwent ventral hernia repair. He has had prior episodes of small-bowel obstruction treated non operatively. Workup in the emergency department with CT abdomen and pelvis confirmed dilated loops of small bowel with a transition point in the mid small bowel suggestive of a small-bowel obstruction due to adhesions. He is admitted to the surgical service for further management. Review of Systems Review of Systems: Yes all other systems are reviewed and are negative Constitutional: Constitutional: Denies chills, Denies fever(s), Denies headache(s), Denies poor appetite and Denies weakness ENT: Denies headache(s) Cardiovascular: Cardiovascular: Denies chest pain, Denies irregular heart rhythm, Denies palpitations and Denies dyspnea Respiratory: Respiratory: Denies cough, Denies excessive phlegm production and Denies dyspnea Gastrointestinal: Gastrointestinal: Reports abdominal pain, Reports bloating, Denies change in bowel habits, Reports constipation, Denies heartburn, Denies diarrhea, Reports nausea and Reports vomiting Genitourinary: Genitourinary: Denies difficulty urinating and Denies urinary frequency Musculoskeletal: Musculoskeletal: Denies back pain, Denies muscle weakness and Denies numbness Integumentary/Breasts: Skin/Breast: Denies changing lesions and Denies unusual bruising Neurologic: Denies headache(s), Denies numbness, Denies paresthesias and Denies weakness Psychiatric: Psychiatric: Denies anxiety and Denies depression Endocrine: Endocrine: Denies palpitations Hematologic/Lymphatic: Hematologic/Lymphatic: Denies lymphadenopathy PMFSH Past Medical History Medical History 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 Surgical History Surgical History History of hemorrhoidectomy (~1993) History of esophagogastroduodenoscopy (EGD) History of colonoscopy History of meniscectomy of right knee (~2003) History of esophagectomy (~2018) History of jejunostomy tube placement (~2018) History of incisional hernia repair (~2019) History of appendectomy History of prostatectomy (~2004) Social History Social History Household Members: Spouse Housing: [facility] Are you a primary pediatric critical care nurse to a significant other at home: No Do you presently have visiting nurse or other home services: No Alcohol intake: former Patient Tobacco Use Status: Former Tobacco user Years Smoked: 35 Smoked in Last 30 Days: No Second Hand Smoke Exposure: No Use of substances other than those prescribed or required for medical reasons: No Advance Directives: Yes Advance Directives on File: Yes Advance Directives Date on File: 12/04/21 Do you have a plan to hurt others: No Plan service: Yes Current occupational status: retired Current occupation: rt handed Meds Allergies Allergy/AdvReac Type Severity Reaction Status Date / Time No Known Allergies Allergy Verified 03/11/24 03:20 [No Known Allergies*] Active Medications: Current Medications Acetaminophen (Acetaminophen 325 Mg Tablet) 650 mg PO Q6H PRN PRN Reason: Pain, Mild (Pain Scale 1-3), fever or headache Calcium Carbonate (Calcium Carbonate 750 Mg Tab.Chew) 750 mg PO Q4H PRN PRN Reason: Heartburn Enoxaparin Sodium (Enoxaparin Sodium 40 Mg/0.4 Ml Syringe) 40 mg SUBCUT Q24H G[facility] Hydromorphone HCl (Hydromorphone Hcl 1 Mg/Ml Syringe) 0.5 mg IVPUSH Q4H PRN; Protocol PRN Reason: Pain, Severe (Pain Scale 7-10) Lactated Ringer's (Lr) 1,000 mls @ 80 mls/hr IVCONT .[id number] [facility] Dextrose/Lactated Ringer's (D5lr) 1,000 mls @ 125 mls/hr IVCONT .Q8H [facility] Magnesium Hydroxide (Milk Of Magnesia 30 Ml Oral.Susp) 30 ml PO DAILY PRN PRN Reason: Constipation Melatonin (Melatonin 3 Mg Tablet) 6 mg PO BEDTIME PRN PRN Reason: Insomnia Ondansetron HCl (Ondansetron Hcl 4 Mg/2 Ml Vial) 4 mg IVPUSH QID PRN PRN Reason: Nausea Oxycodone HCl (Oxycodone Hcl Immed Release 5 Mg Tablet) 5 mg PO Q6H PRN PRN Reason: Pain, Moderate(Pain Scale 4-6) Sodium Chloride (0.9 % Sodium Chloride Flush 3 Ml Syringe) 3 ml IVFLUSH QSHIFT [facility] Home Medications ?Medication ?Instructions ?Recorded ?Confirmed ?Last Taken ?Type cetirizine 10 mg capsule (Allergy 10 mg PO DAILY 05/23/20 10/14/23 06/18/22 History Relief (cetirizine)) verapamil 240 mg 24 hr 1 cap PO DAILY 11/27/21 10/14/23 06/18/22 History capsule,extended release lisinopril 20 mg tablet 20 mg PO DAILY 07/23/22 10/14/23 Unknown History omeprazole 40 mg capsule,delayed 40 mg PO BID 06/05/23 10/14/23 Unknown History release polyethylene glycol 3350 17 17 g PO DAILY 06/05/23 10/14/23 Unknown History gram/dose oral powder (Miralax) Centrum Adult 50 Plus 1 tab PO DAILY 10/14/23 10/14/23 Unknown History Colace 1 tab PO DAILY 10/14/23 10/14/23 Unknown History gabapentin 300 mg capsule 600 mg PO BID 11/18/23 Unknown History Physical Exam Vital Signs: Vital Signs: Last Vital Signs Temp 97.8 F 03/11/24 05:11 Pulse 67 03/11/24 05:11 Resp 19 03/11/24 05:11 BP 135/72 03/11/24 05:11 Pulse Ox 93 03/11/24 05:11 O2 Del Method Room Air 03/11/24 05:11 BMI result Body Mass Index 24.3 Const: General: cooperative and no acute distress Nutritional Appearance: well nourished Orientation/consciousness: patient oriented x3 Limitations: no limitations HEENT: Head: Yes normocephalic and Yes atraumatic Ears: hearing grossly normal bilaterally Resp: Effort & Inspection: normal respiratory effort, no audible wheezes, no cough and no respiratory distress Cardio: Jugular venous distension: no JVD GI: Inspection: Yes normal to inspection and Yes distended Palpation (GI): Soft to palpation, nontender, no guarding and not rigid Percussion: Yes tympanic to percussion Auscultation: normal bowel sounds Rectal Exam - Male: Yes deferred Skin: Other: Warm, dry, no rash Neuro: General: patient oriented x3 Extrem: General: Yes no clubbing, cyanosis or edema Results Results Labs: Short CBC 03/11/24 Range/Units 03:58 WBC 9.9 (4.8-10.8) X10*3/uL Hgb 14.1 (14.0-18.0) g/dl Hct 42.3 (42.0-52.0) % Plt Count 208 (160-400) X10*3/uL BMP 03/11/24 03:58 Sodium 141 Potassium 3.9 Chloride 108 Carbon Dioxide 25 BUN 11 Creatinine 1.03 Calcium 8.7 Liver Function 03/11/24 Range/Units 03:58 Total Bilirubin 0.4 (0.0-1.0) mg/dL Direct Bilirubin 0.1 (0.0-0.5) mg/dL AST 16 (5-37) U/L ALT 10 (0-40) U/L Alkaline Phosphatase 95 (39-117) U/L Albumin 3.6 (3.5-5.0) g/dL Urine 03/11/24 Range/Units 04:46 Urine Color Yellow Urine Appearance Clear Urine pH 5.5 (5.0-9.0) Ur Specific [place] 1.025 (1.005-1.025) Urine Protein Negative (Neg-Trace) mg/dL Urine Glucose (UA) Negative (Negative) mg/dL Assessment and Plan (1) Small bowel obstruction: Status: Acute Plan 78-year-old male patient with history of esophageal adenocarcinoma, status post esophagectomy with gastric pull-through, ventral hernia repair now with a recurrent small bowel obstruction. He presents with nausea, vomiting, abdominal pain and is found to have a small-bowel obstruction. I will hold off on nasogastric decompression given his esophagectomy. We will keep NPO with IV fluids. We will continue to monitor patient's symptoms. Repeat labs in a.m.. We will need med reconciliation. Quality Stroke Does the patient have a stroke diagnosis?: No VTE Prior VTE?: No VTE Risk Level:: Surgical - moderate VTE Device Contraindication: N/A - Device Ordered VTE Drug Contraindication: N/A - Med Ordered Procedures Date of Service Date of Service: 03/11/24
[2024-03-11 07:44] VITALS: BP 141/78; PULSE 65; RESP 17; TEMP 36.3; O2SAT 94
[2024-03-11] MEDS: Dextrose 5 % and Lactated Ring 1,000 ML 100 ML IVCONT ×2 (07:44→18:24)
--- NOTE | 2024-03-11 07:47 | PC.NURSE ---
patient resting quietly in bed, respirations equal and unlabored, skin dry and intact. VSS, patient has D5LR 100ml/hr running
[2024-03-11] MEDS: Enoxaparin Sodium 40 MG/0.4 ML SYRINGE SUBCUT (08:35)
[2024-03-11] MEDS: oxyCODONE HCl Immed Release 5 MG TABLET PO (08:38)
--- NOTE | 2024-03-11 08:40 | PHA.MEDREC ---
Addendum entered by Lawanda Alcantara [facility] 03/11/24 08:59: reviewed Original Note: Pharmacy Consult ? Medication Reconciliation Pharmacy has completed the medication reconciliation. Spoke with patient and at bedside to confirm med list. Patient and where very friendly. had a list of patients medications with her. Patient stated he is no longer taking Lisinopril 20 mg daily, Colace 1 cap daily, Ondansetron 4 mg Q8H prn, Polyethylene Glycol 3350 17 g daily, and Verapamil 240 mg daily.
--- NOTE | 2024-03-11 11:14 | PC.NURSE ---
Addendum entered by Aneta Scott RN 03/11/24 11:15: this nurse took over pt care from luis at 11am Original Note: patient a&ox3, vss, at bedside, pt currently denying pain/discomfort, bowel sounds absent all 4 quadrants at this time, abdomen soft/non-distended. call mina within reach, will continue to monitor
[2024-03-11] MEDS: Omeprazole 40 MG CAPSULE.DR PO (15:56)
[2024-03-11 17:02] VITALS: BP 168/79; PULSE 63; RESP 18; TEMP 36.1; O2SAT 95
[2024-03-11 19:24] VITALS: BP 164/79; PULSE 57; RESP 17; TEMP 36.2; O2SAT 93
[2024-03-11] MEDS: Gabapentin 300 MG CAPSULE 600 MG PO (20:11)
[2024-03-12 03:38] VITALS: BP 166/87; PULSE 55; RESP 16; TEMP 36.3; O2SAT 92
[2024-03-12] MEDS: Dextrose 5 % and Lactated Ring 1,000 ML 100 ML IVCONT ×2 (04:22→14:49)
[2024-03-12] MEDS: Omeprazole 40 MG CAPSULE.DR PO ×2 (05:35→16:00)
[2024-03-12 06:19] LABS: MANUAL DIFF FLAG NO
[2024-03-12 06:24] LABS: Basophils Percent Auto 0.3 % (0-2); Eosinophils Absolute Auto 0.2 X10*3/uL (0.0-0.4); Eosinophils Percent Auto 5.8 % (0-4); Hematocrit 39.5 % (42.0-52.0); Hemoglobin 13.2 g/dl (14.0-18.0); Imm Gran Abs Auto 0.01 X10*3/uL (0.00-0.03); Imm Gran Pct Auto 0.3 % (0.0-0.4); Lymphocytes Absolute Auto 1.3 X10*3/uL (1.2-4.9); Lymphocytes Percent Auto 34.2 % (20-40); Mean Corpuscular HGB Conc 33.4 g/dl (31.0-36.0); Mean Corpuscular Hemoglobin 29.2 pg (27.0-33.0); Mean Corpuscular Volume 87.4 fL (80.0-98.0); Mean Platelet Volume 11.3 fL (9.4-12.4); Monocytes Absolute Auto 0.5 X10*3/uL (0.1-1.2); Monocytes Percent Auto 12.6 % (2-11); Neutrophils Absolute Auto 1.8 x10*3/uL (2.0-8.3); Neutrophils Percent Auto 46.8 % (45-73); Platelet Count 160 X10*3/uL (160-400); Red Blood Count 4.52 X10*6/uL (4.60-5.80); Red Cell Distribution Width 13.5 % (11.0-16.0); White Blood Count 3.8 X10*3/uL (4.8-10.8)
[2024-03-12 06:47] LABS: Anion Gap 11 (12-20); Blood Urea Nitrogen 7 mg/dL (9-16); Calcium 8.6 mg/dL (8.4-10.2); Carbon Dioxide 25 mmol/L (22-29); Chloride 109 mmol/L (96-108); Creatinine Clr Calc Pharmacy 63.3; Estimated Glomerular Filt Rate > 60; Glucose Random 101 mg/dL (60-115); Potassium 3.8 mmol/L (3.3-5.1); Sodium 141 mmol/L (135-145)
[2024-03-12] MEDS: ondansetron HCL 4 MG/2 ML VIAL IVPUSH (07:01)
[2024-03-12 07:04] VITALS: BP 170/84; PULSE 60; RESP 16; TEMP 36.6; O2SAT 94
[2024-03-12] MEDS: Simethicone 80 MG TAB.CHEW PO (08:26)
[2024-03-12] MEDS: Enoxaparin Sodium 40 MG/0.4 ML SYRINGE SUBCUT (08:26)
[2024-03-12] MEDS: Gabapentin 300 MG CAPSULE 600 MG PO ×2 (08:26→20:07)
[2024-03-12] MEDS: VerapamiL HCL SR 240 MG TABLET.ER PO (08:26)
--- NOTE | 2024-03-12 08:35 | P.PNGS_ITS ---
Subjective Subjective Date of Service: 03/12/24 Interval history: Patient reports a large bowel movement this morning although developed some abdominal cramping following this. Overall he feels improved. Physical Exam 2 Vital Signs: Vital Signs: Last Vital Signs Temp 97.9 F 03/12/24 07:04 Pulse 60 03/12/24 07:04 Resp 16 03/12/24 07:04 BP 170/84 H 03/12/24 07:04 Pulse Ox 94 03/12/24 07:04 O2 Del Method Room Air 03/12/24 07:04 BMI result Body Mass Index 24.3 Const: General: no acute distress Resp: Effort & Inspection: normal respiratory effort GI: Inspection: Yes normal to inspection Palpation (GI): Soft to palpation, nontender, no guarding and not rigid Percussion: Yes normal to percussion Objective Data Active Medications Acetaminophen (Acetaminophen 325 Mg Tablet) 650 mg PO Q6H PRN PRN Reason: Pain, Mild (Pain Scale 1-3), fever or headache Calcium Carbonate (Calcium Carbonate 750 Mg Tab.Chew) 750 mg PO Q4H PRN PRN Reason: Heartburn Enoxaparin Sodium (Enoxaparin Sodium 40 Mg/0.4 Ml Syringe) 40 mg SUBCUT Q24H [facility] Last Admin: 03/12/24 08:26 Dose: 40 mg Documented By: NORMA Gabapentin (Gabapentin 300 Mg Capsule) 600 mg PO BID [facility] Last Admin: 03/12/24 08:26 Dose: 600 mg Documented By: NORMA Hydromorphone HCl (Hydromorphone Hcl 1 Mg/Ml Syringe) 0.5 mg IVPUSH Q4H PRN; Protocol PRN Reason: Pain, Severe (Pain Scale 7-10) Dextrose/Lactated Ringer's (D5lr) 1,000 mls @ 100 mls/hr IVCONT .Q10H [facility] Last Admin: 03/12/24 04:22 Dose: 100 mls/hr Documented By: ODRISM Magnesium Hydroxide (Milk Of Magnesia 30 Ml Oral.Susp) 30 ml PO DAILY PRN PRN Reason: Constipation Melatonin (Melatonin 3 Mg Tablet) 6 mg PO BEDTIME PRN PRN Reason: Insomnia Omeprazole (Omeprazole 40 Mg Capsule.) 40 mg PO BID@0630,1630 [facility] Last Admin: 03/12/24 05:35 Dose: 40 mg Documented By: RASHEED Ondansetron HCl (Ondansetron Hcl 4 Mg/2 Ml Vial) 4 mg IVPUSH QID PRN PRN Reason: Nausea Last Admin: 03/12/24 07:01 Dose: 4 mg Documented By: NORMA Oxycodone HCl (Oxycodone Hcl Immed Release 5 Mg Tablet) 5 mg PO Q6H PRN PRN Reason: Pain, Moderate(Pain Scale 4-6) Last Admin: 03/11/24 08:38 Dose: 5 mg Documented By: EBER Simethicone (Simethicone 80 Mg Tab.Chew) 80 mg PO QIDWMHS PRN PRN Reason: Gas Last Admin: 03/12/24 08:26 Dose: 80 mg Documented By: NORMA Sodium Chloride (0.9 % Sodium Chloride Flush 3 Ml Syringe) 3 ml IVFLUSH QSHIFT [facility] Last Admin: 03/12/24 08:22 Dose: Not Given Documented By: NORMA Non-Admin Reason: IV Running Verapamil HCl (Verapamil Hcl Sr 240 Mg Tablet.Er) 240 mg PO DAILY [facility]; Protocol Last Admin: 03/12/24 08:26 Dose: 240 mg Documented By: NORMA Labs 03/12/24 05:43 03/12/24 05:43 Labs: Laboratory Results - last 24 hr 03/12/24 05:43 MCV 87.4 MCH 29.2 MCHC 33.4 RDW 13.5 Plt Count 160 MPV 11.3 Immature Gran % (Auto) 0.3 Neut % (Auto) 46.8 Lymph % (Auto) 34.2 [place] % (Auto) 12.6 H Eos % (Auto) 5.8 H Baso % (Auto) 0.3 Lymph # (Auto) 1.3 [place] # (Auto) 0.5 Eos # (Auto) 0.2 Baso # (Auto) 0.0 Abs Immat Gran (auto) 0.01 Absolute Neuts (auto) 1.8 L Absolute Nucleated RBC 0.000 Nucleated RBC % (auto) 0.0 Anion Gap 11 L Estim Creat Clear Calc 63.3 Estimated GFR > 60 Random Glucose 101 Calcium 8.6 Procedures Date of Service Date of Service: 03/12/24 Progress Note: A&P Assessment and plan (1) Small bowel obstruction: Status: Acute Plan 78-year-old male patient with multiple previous abdominal surgeries presenting with abdominal pain nausea, vomiting, consistent with a recurrent small bowel obstruction due to adhesions. The bowel obstruction appears to be partial and he is now moving his bowels. We will start clear liquid diet and add simethicone for gas pain. Encouraged out of bed and ambulation. Time Spent With Patient Time: Total time managing care of this patient today ____ minutes. Quality Stroke Does the patient have a stroke diagnosis?: No VTE Prior VTE?: No VTE Risk Level:: Surgical - moderate VTE Device Contraindication: N/A - Device Ordered VTE Drug Contraindication: N/A - Med Ordered
--- NOTE | 2024-03-12 14:51 | MHC.CM.PN ---
IMM DELIVERED. PATIENT LIVES IN A HOME W/ . FUNCTIONALLY INDEPENDENT. DENIES USE OF DME OR SERVICES. PCP EDGARD MARCELINO DO HCP ON FILE AND VERIFIED. DP: HOME SELF CARE, SON TO TRANSPORT.
[2024-03-12 15:18] VITALS: BP 144/66; PULSE 51; RESP 14; TEMP 36.3; O2SAT 95
[2024-03-12 19:35] VITALS: BP 148/71; PULSE 56; RESP 20; TEMP 36.1; O2SAT 94
[2024-03-13] MEDS: Dextrose 5 % and Lactated Ring 1,000 ML 100 ML IVCONT (01:15)
[2024-03-13 03:43] VITALS: BP 168/81; PULSE 51; RESP 18; TEMP 36.7; O2SAT 95
[2024-03-13] MEDS: Omeprazole 40 MG CAPSULE.DR PO ×2 (05:47→17:04)
[2024-03-13 06:55] VITALS: BP 150/80; PULSE 58; RESP 17; TEMP 36.6; O2SAT 94
[2024-03-13] MEDS: Gabapentin 300 MG CAPSULE 600 MG PO (08:03)
[2024-03-13] MEDS: VerapamiL HCL SR 240 MG TABLET.ER PO (08:03)
[2024-03-13] MEDS: Simethicone 80 MG TAB.CHEW PO (08:04)
[2024-03-13] MEDS: Enoxaparin Sodium 40 MG/0.4 ML SYRINGE SUBCUT (08:05)
--- NOTE | 2024-03-13 09:44 | P.PNGS_ITS ---
Subjective Subjective Date of Service: 03/13/24 Interval history: Patient reports a small bowel movement this morning with subsequent cramping abdominal pain. Denies nausea or vomiting. Overall feels improved. Patient tolerating clear liquid diet. Physical Exam 2 Vital Signs: Vital Signs: Last Vital Signs Temp 97.8 F 03/13/24 06:55 Pulse 58 03/13/24 06:55 Resp 17 03/13/24 06:55 BP 150/80 H 03/13/24 06:55 Pulse Ox 94 03/13/24 06:55 O2 Del Method Room Air 03/13/24 06:55 BMI result Body Mass Index 24.3 Const: General: no acute distress Resp: Effort & Inspection: normal respiratory effort GI: Inspection: Yes normal to inspection Palpation (GI): Soft to palpation, nontender, no guarding and not rigid Percussion: Yes normal to percussion Objective Data Active Medications Acetaminophen (Acetaminophen 325 Mg Tablet) 650 mg PO Q6H PRN PRN Reason: Pain, Mild (Pain Scale 1-3), fever or headache Calcium Carbonate (Calcium Carbonate 750 Mg Tab.Chew) 750 mg PO Q4H PRN PRN Reason: Heartburn Enoxaparin Sodium (Enoxaparin Sodium 40 Mg/0.4 Ml Syringe) 40 mg SUBCUT Q24H [facility] Last Admin: 03/13/24 08:05 Dose: 40 mg Documented By: NORMA Gabapentin (Gabapentin 300 Mg Capsule) 600 mg PO BID [facility] Last Admin: 03/13/24 08:03 Dose: 600 mg Documented By: NORMA Hydromorphone HCl (Hydromorphone Hcl 1 Mg/Ml Syringe) 0.5 mg IVPUSH Q4H PRN; Protocol PRN Reason: Pain, Severe (Pain Scale 7-10) Dextrose/Lactated Ringer's (D5lr) 1,000 mls @ 80 mls/hr IVCONT .[id number] [facility] Last Admin: 03/13/24 01:15 Dose: 100 mls/hr Documented By: CHRISTINARISKetty Magnesium Hydroxide (Milk Of Magnesia 30 Ml Oral.Susp) 30 ml PO DAILY PRN PRN Reason: Constipation Melatonin (Melatonin 3 Mg Tablet) 6 mg PO BEDTIME PRN PRN Reason: Insomnia Omeprazole (Omeprazole 40 Mg Capsule.) 40 mg PO BID@0630,1630 [facility] Last Admin: 03/13/24 05:47 Dose: 40 mg Documented By: CHRISTINARISKetty Ondansetron HCl (Ondansetron Hcl 4 Mg/2 Ml Vial) 4 mg IVPUSH QID PRN PRN Reason: Nausea Last Admin: 03/12/24 07:01 Dose: 4 mg Documented By: NORMA Oxycodone HCl (Oxycodone Hcl Immed Release 5 Mg Tablet) 5 mg PO Q6H PRN PRN Reason: Pain, Moderate(Pain Scale 4-6) Last Admin: 03/11/24 08:38 Dose: 5 mg Documented By: EBER Simethicone (Simethicone 80 Mg Tab.Chew) 80 mg PO QIDWMHS PRN PRN Reason: Gas Last Admin: 03/13/24 08:04 Dose: 80 mg Documented By: NORMA Sodium Chloride (0.9 % Sodium Chloride Flush 3 Ml Syringe) 3 ml IVFLUSH QSHIFT [facility] Last Admin: 03/13/24 07:54 Dose: Not Given Documented By: NORMA Non-Admin Reason: IV Running Verapamil HCl (Verapamil Hcl Sr 240 Mg Tablet.Er) 240 mg PO DAILY [facility]; Protocol Last Admin: 03/13/24 08:03 Dose: 240 mg Documented By: NORMA Labs 03/12/24 05:43 03/12/24 05:43 Procedures Date of Service Date of Service: 03/13/24 Progress Note: A&P Assessment and plan (1) Small bowel obstruction: Status: Acute Plan 78-year-old male patient with multiple previous abdominal surgeries presenting with abdominal pain nausea, vomiting, consistent with a recurrent small bowel obstruction due to adhesions. He continues to make progress with several small bowel movements over the past 24 hours. We will advance diet to a soft regular diet. Continue to monitor clinical examination. Time Spent With Patient Time: Total time managing care of this patient today ____ minutes. Quality Stroke Does the patient have a stroke diagnosis?: No VTE Prior VTE?: No VTE Risk Level:: Surgical - moderate VTE Device Contraindication: N/A - Device Ordered VTE Drug Contraindication: N/A - Med Ordered
[2024-03-13] MEDS: Loratadine 10 MG TABLET PO (09:56)
[2024-03-13 15:35] VITALS: BP 149/69; PULSE 63; RESP 20; TEMP 37.1; O2SAT 96
--- NOTE | 2024-03-29 16:39 | PM.DS ---
DS: Providers Provider Date of Service: 03/29/24 Date of admission: 03/11/24 07:22 Date of discharge: 03/13/24 Primary care physician: Matthew Hirsch DO Admitting clinician: Ulisses Gregory Attending physician on discharge: Ulisses Gregory DS: Diagnosis Discharge Diagnosis (1) Small bowel obstruction: Status: Inactive DS: Summary Hospital Course Hospital Course: Yoseph Orellana is a 78 year old male presenting with complaints of abdominal pain in the lower abdomen associated with nausea and vomiting. He reports 2 episodes of diarrhea yesterday but no flatus. He has not passed any gas or bowels since coming to the emergency department. He has a previous history of esophageal CA and previously underwent radiation therapy. He underwent an esophagectomy with gastric pull-through. He also underwent ventral hernia repair. He has had prior episodes of small-bowel obstruction treated non operatively. Workup in the emergency department with CT abdomen and pelvis confirmed dilated loops of small bowel with a transition point in the mid small bowel suggestive of a small-bowel obstruction due to adhesions. He is admitted to the surgical service for further management. He was made NPO started on IV fluids. Because of his recent esophageal surgery no attempt was made to place an NG tube. By the next hospital day, the patient reports passing a large bowel movement. His abdomen but much improved with no further nausea, vomiting, or abdominal pain. He was subsequently started on clear liquids and gradually advanced to a solid diet over the next 24 hours. Having tolerated a regular diet without any further abdominal pain, nausea or vomiting , he was subsequently discharged to home on 03/13/2024 in stable condition. Discharge instructions were to avoid fibrous foods and remain on stool softeners. He will return to the office in approximately 1 week for follow-up examination. He should return to the ER should the symptoms return. Time spent discussing smoking cessation with patient: 3 to 10 minutes Status at Discharge Functional status at discharge: independent ambulation Overall status at discharge: patient is back to baseline Time Attestation Discharge Coordination Time (in mins): 20 Quality: Safe Use of Opioids Does Pt have an Active Cancer Diagnosis on the Problem List?: Yes Opioid Measure Date for [facility] Report: 02/28/24 Opioid Measure Time for [facility] Report: 16:42 Quality: Stroke Does the patient have a stroke diagnosis?: No Physical Exam Vital Signs: Vital Signs: Last Vital Signs Temp 98.8 F 03/13/24 15:35 Pulse 63 03/13/24 15:35 Resp 20 03/13/24 15:35 BP 149/69 H 03/13/24 15:35 Pulse Ox 96 03/13/24 15:35 O2 Del Method Room Air 03/13/24 15:35 BMI result Body Mass Index 24.3 Const: General: no acute distress Resp: Effort & Inspection: normal respiratory effort GI: Inspection: Yes normal to inspection Palpation (GI): Soft to palpation, nontender, no guarding and not rigid Percussion: Yes normal to percussion DS: Data Data Completed and Pending Completed studies during hospitalization [Text1]: Procedures Drainage of Mediastinum, Percutaneous Approach, Diagnostic (11/27/21) Excision of Mediastinum, Percutaneous Approach, Diagnostic (11/27/21) Discharge Plan Discharge Anticipated Discharge Date/Time: 03/13/24 16:39 Patient Disposition: Home, Self-Care Discharge Diagnosis: Partial Small Bowel Obstruction Referrals: Ulisses Gregory MD [Physician] - 2 Weeks PhysicianDeidre [Physician] - 1 Week Discharge Medications: Continued Allergy Relief (cetirizine) 10 mg Capsule 10 mg PO DAILY omeprazole 40 mg Capsule,Delayed Release(Dr/Ec) 40 mg PO BID@0630,1630 gabapentin 300 mg capsule 600 mg PO BID verapamil 240 mg capsule,ext rel. pellets 24 hr 240 mg PO DAILY Centrum Adult 50 Plus 80 mcg Tablet,Chewable 1 tab PO DAILY No Action polyethylene glycol 3350 17 gram Powder In Packet 17 g PO DAILY Qty: 30 0RF sennosides-docusate sodium [Senna Plus] 8.6-50 mg Tablet 2 tab PO BID Qty: 120 0RF bisacodyl 5 mg Tablet,Delayed Release (Dr/Ec) 10 mg PO DAILY Qty: 30 0RF Discharge Orders: Discharge Order (Routine); Ordered 03/13/24 Ordered By: Ulisses Gregory Diet: Advance to usual diet Activity on Discharge: As tolerated Stand Alone Forms: Patient Portal Discharge page Print Language: Telugu Care Plan Goals: Return to normal diet and activity Health Concerns: Small bowel obstruction due to adhesions Plan of Treatment: Bowel rest and IV fluid hydration Assessment: Resolved partial small bowel obstruction Discharge Date/Time: 03/13/24 17:47
== END 2024-03-13 17:47 | disposition home or self-care (01) | DRG 390 ==
LOC: HO.ED 06:06 → HO.EDOVER 07:34 → HO.S3 13:52
PROVIDERS: Admitting Provider Surgery; Emergency Provider Emergency Medicine; PCP Internal Medicine; Visit Provider Surgery
DX: K56.51 Intestinal adhesions [bands], with partial obstruction (principal); Z85.01 Personal history of malignant neoplasm of esophagus; Z79.899 Other long term (current) drug therapy
CPT/HCPCS: 36415; 74177; 80048; 80076; 81003; 83690; 83735; 85025; 99285; J1650; J2270; J2405; Q9967

== ENCOUNTER → 2024-03-11 07:22 | Outpatient (BNV) | payer MEDICARE, SELFPAY | PROVIDERS: Admitting Provider Surgery; Emergency Provider Emergency Medicine; Visit Provider Surgery | DX: K56.609 Unspecified intestinal obstruction, unspecified as to partial versus complete obstruction (principal) | CPT/HCPCS: 99222; 99232; 99238 ==

== ENCOUNTER 2024-03-19 15:44 | Observation (INO) | payer MEDICARE, SELFPAY ==
--- NOTE | ~2024-03-19 | CT_ITS ---
EXAMINATION: CT ABDOMEN AND PELVIS WITHOUT CONTRAST CLINICAL INFORMATION: Constipation, query impaction COMPARISON: 03/11/2024 TECHNIQUE: Multidetector volumetric imaging was performed from the superior aspect of the liver through the pubic symphysis. Sagittal and coronal reformatted images were obtained on the technologist's workstation. This CT examination was performed using dose optimization techniques as appropriate, variously including the following: *Automated exposure control *Adjustment of mA and/or kV according to patient size (this includes techniques or standardized protocols for targeted exams where dose is matched to indication/reason for exam; i.e. extremities or head) *Use of iterative reconstruction technique DLP: 554 mGy-cm FINDINGS: LUNG BASES: Unremarkable. ABDOMINAL AND PELVIC WALL: Unremarkable. LIVER AND BILIARY TREE: Unremarkable. GALLBLADDER: Unremarkable. PANCREAS: Unremarkable. SPLEEN: Unremarkable. ADRENAL GLANDS: Unremarkable. KIDNEYS AND URETERS: Benign-appearing left parapelvic cyst. GASTROINTESTINAL TRACT: Postsurgical changes related to gastric pull-through procedure and esophagectomy. Large volume stool in the rectum with some circumferential thickening of the distal rectum which may reflect early stercoral colitis. No evidence of obstruction. Colonic diverticulosis, no findings of diverticulitis. Appendix is not visualized, no inflammatory changes in the right lower quadrant to suggest appendicitis.Distal perirectal surgical clips are again noted. VASCULAR: Aortic atherosclerotic calcifications, no aneurysmal dilation. LYMPH NODES/PERITONEUM: No lymphadenopathy. FREE FLUID: None. BLADDER: Unremarkable. PELVIC VISCERA: Unremarkable. OSSEOUS STRUCTURES: Mild degenerative changes of the thoracolumbar spine. CT/CT abdomen pelvis wo IV con IMPRESSION: Large volume stool in the rectum with some circumferential thickening of the distal rectum which may reflect early stercoral colitis. No evidence of obstruction.
[2024-03-19 15:53] VITALS: BP 148/74; BP 172/50; PULSE 73; PULSE 81; RESP 16; TEMP 36.5; O2SAT 97; BMI 25.1
[2024-03-19 15:58] VITALS: BP 148/74; PULSE 73; RESP 16; TEMP 36.5; O2SAT 97
--- OUTSIDE RECORDS SUMMARY | 2024-03-19 16:07 | XMS_ITS ---
Author Organization Matthew Hirsch DO, [facility] Address [address], [place] [id number] Care Team Providers Care Preparation Supervisor Freezing Name Role Phone Matthew Hirsch Primary Care Provider REASON FOR VISIT FYI only Encounters Encounter Location Date Provider Diagnosis Matthew Hirsch DO, FACP [address] [place] [phone] 02/01/2024 Matthew Hirsch PLAN OF TREATMENT Next Appt Details Provider Name:Matthew byrne, 04/20/2024 01:30:00 PM, [address], [place], [phone],
--- OUTSIDE RECORDS SUMMARY | 2024-03-19 16:07 | XMS_ITS ---
Author Organization Matthew Hirsch DO, [facility] Address [address], [place] [id number] Care Team Providers Care Steam And Power Superintendent Name Role Phone Matthew Hirsch Primary Care Provider [phone] REASON FOR VISIT Refill and message MEDICATIONS Medication SIG (Take, Route, Frequency, Duration) Notes Start Date End Date Status Viagra 50 MG 1 tablet as needed Orally Once a day for 30 day(s) No Substitution. Dispense as written. 01/19/2024 Active Encounters Encounter Location Date Provider Diagnosis Matthew Hirsch DO, FACP [address] [place] [phone] 01/22/2024 Matthew Hirsch PLAN OF TREATMENT Medication Medication Name Sig Start Date Stop Date Notes Viagra 50 MG 1 tablet as needed Orally Once a day for 30 day(s) 01/19/2024 No Substitution. Dis pense as written. Next Appt Details Provider Name:Matthew byrne, 04/20/2024 01:30:00 PM, [address] [place] [address], [phone],
--- OUTSIDE RECORDS SUMMARY | 2024-03-19 16:07 | XMS_ITS ---
Author Organization Matthew Hirsch DO, [facility] Address [address] [place], [place] [id number] Care Team Providers Care Information Assurance Name Role Phone JoycelynMatthew fneton Primary Care Provider [phone] REASON FOR VISIT Refills MEDICATIONS Medication SIG (Take, Route, Fr equency, Duration) Notes Start Date End Date Status Gabapentin 300 MG 2 capsules Orally Tw ice a day for 90 days Active Encounters Encounter Location Date Provider Diagnosis [facility] [address] [place], [place] [phone] 02/22/2024 Matthew Hirsch Esophageal carcinoma C15.9 ASSESSMENTS Encounter Date Diagnosis Assessment Notes Treatment Notes Treatment Clinical Notes 02/22/2024 Esophageal carcinoma (ICD-10 - C15.9) PLAN OF TREATMENT Medication Medication Name Sig Start Date Stop Date Notes Gabapentin 300 MG 2 capsules Orally Tw ice a day for 90 days Next Appt Details Provider Name:Matthew byrne, 04/20/2024 01:30:00 PM, [address] [place], [place], [phone],
--- OUTSIDE RECORDS SUMMARY | 2024-03-19 16:08 | XMS_ITS | Patient Health Record ---
Author Organization Matthew Hirsch DO, FACP Address [address], [place] [id number] Care Team Providers Care Size Changer Name Role Phone Matthew Hirsch Primary Care Provider ALLERGIES No Known Allergies RESULTS Component Value Reference Range Notes Complete Blood Count Auto Di ff Reviewed date:04/07/2023 03:08:13 PM Interpretation:Abnormal Performing Lab:[facility], [address] [place] [address] Notes/Report: White Blood Count 4.3 4.8-10.8 X10*3/uL [...] Panel Reviewed date:04/07/2023 03:37:59 PM Interpretation:Abnormal Performing Lab:[facility], [address] [place] [address] Notes/Report: Sodium 142 135-145 mmol/L Potassium 4.0 [...] Glomerular Filt Rate > 60 NOTE: For -Canadian individuals, multiply the result by 1.210. Chronic [...] ff Reviewed date:06/05/2023 02:22:33 PM Interpretation:Abnormal Performing Lab:[facility], [address] [place] [address] Notes/Report: White Blood Count 4.7 4.8-10.8 X10*3/uL [...] Panel Reviewed date:06/05/2023 02:22:33 PM Interpretation:Abnormal Performing Lab:[facility], [address] [place] [address] Notes/Report: Sodium 142 135-145 mmol/L Potassium 4.2 [...] Glomerular Filt Rate > 60 NOTE: For -Canadian individuals, multiply the result by 1.210. Chronic [...] POC Reviewed date:07/24/2023 09:37:08 AM Interpretation:Normal Performing Lab:[facility], [address] [place] [address] Notes/Report: [id number] 0.85 >60 1520 HO.HAIGHTA Creatinine POC 0.9 0.5-1.4 mg/dL GFR POC > 60 Chronic Kidney Disease: Estimated GFR < 60 mL/min/1.73m2 Severe Kidney Disease: Estimated GFR < 15 mL/min/1.73m2 CT chest w con Reviewed date:07/21/2023 06:34:30 PM Interpretation:Stable Performing Lab: Notes/Report: [address] [address] [address] Scan Report Signed Patient: Yoseph Orellana MR#: [id number] : 1945 Acct:[id number] Age/Sex: 77 / M ADM Date: 07/20/23 Loc: HO.CT Attending Dr: Isabella Brooks MD Ordering Physician: Isabella Brooks MD Date of Service: 07/20/23 Procedure(s): CT chest w IV con Accession Number(s): [id number] cc: Isabella Brooks MD; Matthew Hirsch DO [...] iterative reconstruction technique DLP: 135 mGy-cm FINDINGS: BIODIESEL ENGINE SPECIALIST: Well-inflated lungs. LUNGS: There is a 2 [...] in OV> 07/21/23 1645 DD/ 1540 TD/TT: Scrap Handler: KARLI FL barium swallow Reviewed date:07/29/2023 05:29:07 PM Interpretation:Abnormal Performing Lab: Notes/Report: [address] [address] Fluoroscopy Report Signed Patient: Yoseph Orellana MR#: [id number] : 1945 Acct:[id number] Age/Sex: 77 / M ADM Date: 07/29/23 Loc: HO.XRAY Attending Dr: Matthew Hirsch DO Ordering Physician: Matthew Hirsch DO Date of Service: 07/29/23 Procedure(s): FL barium swallow Accession Number(s): [id number] cc: Matthew Hirsch DO EXAMINATION: XR FLUOROSCOPY [...] EGD recommended. This procedure was performed by Quang Watson PA-C, and supervised by Dr. Acotsa Dictated By: Martin Acosta MD Signed By: <Electronically signed by Martin Acosta MD in OV> 07/29/23 1611 DD/ 1145 TD/TT: Scrap Handler: PET CT fusion skull to thigh Reviewed date:09/18/2023 05:16:53 PM Interpretation:Abnormal Performing Lab: Notes/Report: [place] [address] PET Report Signed Patient: Yoseph Orellana MR#: [id number] : 1945 Acct:[id number] Age/Sex: 78 / M ADM Date: 09/15/23 Loc: HO.PET Attending Dr: Isabella Brooks MD Ordering Physician: Isabella Brooks MD Date of Service: 09/15/23 Procedure(s): PET CT fusion skull to thigh Accession Number(s): [id number] cc: Isabella Brooks MD; Matthew Hirsch DO [...] in OV> 09/18/23 1257 DD/ 1030 TD/TT: Scrap Handler: DAWOOD Prostate Specific Antigen Reviewed date:09/29/2023 12:25:21 PM Interpretation:Undetectable Performing Lab:[facility], [address] [place] [address] Notes/Report: Prostate Specific Antigen < 0.10 <0.05-4.0 ng/mL PSA methodology: Richard Alinity i Chemiluminescent Microparticle Immunoassay (CMIA) Complete Blood Count Auto Di ff Reviewed date:10/14/2023 04:33:51 PM Interpretation:Normal Performing Lab:[address] [address] Notes/Report: White Blood Count 6.8 4.8-10.8 X10*3/uL [...] Panel Reviewed date:10/14/2023 04:34:57 PM Interpretation:Abnormal Performing Lab:[facility], [address] [place] [address] Notes/Report: Sodium 142 135-145 mmol/L Potassium 3.8 [...] Glomerular Filt Rate > 60 NOTE: For -Canadian individuals, multiply the result by 1.210. Chronic [...] Panel Reviewed date:11/19/2023 10:35:14 AM Interpretation:Normal Performing Lab:[facility], [address] [place] [address] Notes/Report: Sodium 143 135-145 mmol/L Potassium 4.6 3.3-5.1 mmol/L Chloride 108 96-108 mmol/L Carbon Dioxide 29 22-29 mmol/L Anion Gap 11 12-20 Blood Urea Nitrogen 11 9-16 mg/dL Creatinine 1.28 0.5-1.4 mg/dL Estimated Glomerular Filt Rate 54 NOTE: For -Canadian individuals, multiply the result by 1.210. Chronic Kidney Disease: Estimated GFR < 60 mL/min/1.73m2 Severe Kidney Disease: Estimated GFR < 15 mL/min/1.73m2 Glucose Random 89 60-115 mg/dL Calcium 9.4 8.4-10.2 mg/dL Complete Blood Count Auto Di ff Reviewed date:11/19/2023 08:53:06 AM Interpretation:Normal Performing Lab:[address] [address] Notes/Report: White Blood Count 5.0 4.8-10.8 X10*3/uL [...] ff Reviewed date:01/01/2024 01:07:57 PM Interpretation:Normal Performing Lab:[facility], [address] [place] [address] Notes/Report: White Blood Count 8.3 4.8-10.8 X10*3/uL [...] INR Reviewed date:01/01/2024 12:55:22 PM Interpretation:Normal Performing Lab:[address] [address] Notes/Report: Prothrombin Time 12.6 11.1-13.3 [employer] [...] Panel Reviewed date:01/01/2024 01:09:00 PM Interpretation:Normal Performing Lab:[address] [address] Notes/Report: Bilirubin Total 0.5 0.0-1.0 mg/dL Bilirubin Direct 0.2 0.0-0.5 mg/dL Aspartate Amino Transferase 17 5-37 U/L Alanine Aminotransferase 11 0-40 U/L Total Protein 6.9 6.5-8.0 g/dL Albumin Level 3.7 3.5-5.0 g/dL Alkaline Phosphatase 99 39-117 U/L Basic Metabolic Panel Fastin g Reviewed date:01/01/2024 01:09:00 PM Interpretation:Normal Performing Lab:[facility], [address] [place] [address] Notes/Report: Sodium 141 135-145 mmol/L Potassium 4.2 [...] Glomerular Filt Rate > 60 NOTE: For -Canadian individuals, multiply the result by 1.210. Chronic Kidney Disease: Estimated GFR < 60 mL/min/1.73m2 Severe Kidney Disease: Estimated GFR < 15 mL/min/1.73m2 Glucose Fasting 81 60-99 mg/dL Calcium 9.2 8.4-10.2 mg/dL Magnesium Reviewed date:01/01/2024 01:09:00 PM Interpretation:Normal Performing Lab:[facility], [address] [place] [address] Notes/Report: Magnesium 2.1 1.6-2.6 mg/dL Lipase Reviewed date:01/01/2024 01:09:00 PM Interpretation:Normal Performing Lab:[facility], [address] [place] [address] Notes/Report: Lipase 15 8-78 U/L CT chest w con Reviewed date:01/02/2024 11:16:28 AM Interpretation:Abnormal Performing Lab: Notes/Report: [address] [place] [address] CT Scan Report Signed Patient: Yoseph Orellana MR#: [id number] : 1945 Acct:[id number] Age/Sex: 78 / M ADM Date: 01/01/24 Loc: HO.ED Attending Dr: Ordering Physician: Rebecca Alvarenga DO Date of Service: 01/01/24 Procedure(s): CT chest w IV con Accession Number(s): [id number] cc: Rebecca Alvarenga DO; JoycelynMatthew DYER EXAMINATION: [...] in OV> 01/01/24 1640 DD/ 1510 TD/TT: Scrap Handler: CT abdomen pelvis w con Reviewed date:01/02/2024 11:17:42 AM Interpretation:Abnormal Performing Lab: Notes/Report: [address] [address] [address] Scan Report Signed Patient: Yoseph Orellana MR#: [id number] : 1945 Acct:[id number] Age/Sex: 78 / M ADM Date: 01/01/24 Loc: HO.ED Attending Dr: Ordering Physician: Rebecca Alvarenga DO Date of Service: 01/01/24 Procedure(s): CT abdomen pelvis w IV con Accession Number(s): [id number] cc: Rebecca Alvarenga DO; Matthew Hirsch DO [...] in OV> 01/01/24 1640 DD/ 1510 TD/TT: Scrap Handler: REASON FOR REFERRAL Reason Esophageal dysphagia Diagnosis 1 Esophageal dysphagia (R13.10) Referral Organization Matthew Mireles, FACP Referring Provider First Name Matthew Referring Provider Last Name Joycelyn Referring Provider edicine Referred Provider Matthew Powell Referred Provider [...] Referring Provider Last Name Joycelyn Referring Provider edicine Referred Provider Estiven Baird Referred Provider [...] Referring Provider Last Name Joycelyn Referring Provider edicine Referred Provider [facility] [place] Referred Provider Specialty [...] Problem Essential hypertensi on (I10) Active confirmed 74908336 Problem Erectile dysfunction , unspecified erectile dysfunction type (N52.9) Active confirmed 053910709 Problem Neuropathy (G62.9) Active confirmed 386 880033 Problem History of prostate cancer (Z85.46) Active confirmed 366890318 Problem Incisional hernia, without obstruction or gangrene (K43.2) Active confirmed 437334284 Problem Hypercholesterolemia (E78.00) Active confirmed 57628479 Problem Esophageal dysphagia (R13.10) Active confirmed 49438643 Problem Allergic rhinitis, unspecified seasonality, unspecified trigger (J30.9) Active confirmed 12810224 Problem Esophageal carcinoma (C15.9) Active confirmed 010051524 Problem Pressure injury of sacral region, stage 1 (L89.151) Active confirmed 872256111 Problem SBO (small bowel obstruction) (K56.609) Active confirmed 513892519 Problem Vocal cord paralysis (J38.00) Active confirmed 195965153 VITAL SIGNS Blood pressure diastolic 68 mm Hg 06/02/2023 Height 66.75 in 06/02/2023 Blood pressure systolic 122 mm Hg 06/02/2023 Weight 172 lbs 06/02/2023 BMI 27.14 kg/m2 06/02/2023 Encounters Encounter Location Date Provider Diagnosis Matthew Hirsch DO [facility] [address], [place] [id number] 06/02/2023 Matthew Hirsch Esophageal carcinoma C15.9 ; Essential hypertension I10 ; Allergic rhinitis, unspecified seasonality, unspecified trigger J30.9 and Erectile dysfunction, unspecified erectile dysfunction type N52.9 Matthew Hirsch DO, [facility] [address], [place] [id number] 01/19/2024 Matthew Hirsch Esophageal dysphagia R13.10 ; Essential hypertension I10 ; Esophageal carcinoma C15.9 and Allergic rhinitis, unspecified seasonality, unspecified trigger J30.9 Matthew Hirsch DO, [facility] [address], [place] [id number] 11/17/2023 Matthew Hirsch Esophageal dysphagia R13.10 ; Vocal cord paralysis J38.00 ; Essential hypertension I10 ; Allergic rhinitis, unspecified seasonality, unspecified trigger J30.9 ; SBO (small bowel obstruction) K56.609 ; Erectile dysfunction, unspecified erectile dysfunction type N52.9 and Esophageal carcinoma C15.9 Matthew Hirsch DO, FACP [address], [place] [id number] 06/15/2023 Matthew Hirsch Esophageal carcinoma C15.9 Matthew Patinoman DO, [facility] [address], [place] [id number] 06/15/2023 Matthew Hirsch DO, [address] [id number] 06/29/2023 Matthew Hirsch Esophageal carcinoma C15.9 and Esophageal dysphagia R13.10 Matthew Hdez Joycelyn DO, [facility] [address], [place] [id number] 07/13/2023 Matthew Hirsch Esophageal carcinoma C15.9 Matthew Hdez Joycelyn DO, [address] [id number] 08/11/2023 Matthew Patinoman Matthew Ketty Hirsch DO, [address] [id number] 09/10/2023 Matthew Hdez Joycelyn DO, [address] [id number] 10/09/2023 Matthew Hirsch Matthew Ketty Hirsch DO, [address] [id number] 10/26/2023 Matthew Hirsch Esophageal carcinoma C15.9 Matthew Patinoman DO, [address] [id number] 01/18/2024 Matthew Hirsch Esophageal dysphagia R13.10 Matthew Hdez Joycelyn DYER, [address] [id number] 01/20/2024 Matthew Hdez Joycelyn DO, [address] [id number] 01/22/2024 Matthew Hirsch Matthew Hdez Joycelyn DYER, [address] [id number] 02/01/2024 Matthew Patinoman Matthew Hdez Joycelyn DYER, [address] [id number] 02/22/2024 Matthew Hirsch Esophageal carcinoma C15.9 ASSESSMENTS [...] Details Provider Name:Matthew byrne, 04/20/2024 01:30:00 PM, [address] [place] [address], [id number], Insurance Providers Payer Name Payer Address Payer Phone Subscriber Number Group Number Insured Name Patient Relationship to Insured Coverage Start Date Coverage End Date [employer] MEDICARE [address] [facility] [place] [phone] [id number] Magydangelcinthia Yoseph Self - patient is the insured [...]
--- OUTSIDE RECORDS SUMMARY | 2024-03-19 16:08 | XMS_ITS ---
Author Organization [facility] Address [address] [place] [address] Care Team Providers Care Funeral Home Director Name Role Phone Matthew Hirsch DO Primary Care Provider Unavail able Matthew Powell Unavailable [phone] REASON FOR VISIT requesting soon appt pt with dysphagia/hx of esophageal ca Encounters Encounter Location Date Provider Diagnosis [facility] [address] [place] [address] 08/12/2023 Matthew Powell PLAN OF TREATMENT No Information
--- OUTSIDE RECORDS SUMMARY | 2024-03-19 16:08 | XMS_ITS | Patient Health Record ---
Author Organization [facility] Address [address] [place] [address] Care Team Providers Care Test Developer Name Role Phone Matthew Hirsch DO Primary Care Provider Unavail able Matthew Powell Unavailable [phone] ALLERGIES No Known Allergies RESULTS Component Value Reference Range Notes FL barium swallow modified Reviewed date:10/27/2023 10:59:30 PM Interpretation: Performing Lab: Notes/Report: [address] [address] Fluoroscopy Report Signed Patient: Fuad Orellana MR#: [id number] : 1945 Acct:[id number] Age/Sex: 78 / M ADM Date: 09/09/23 Loc: PENNY Attending Dr: Matthew Powell MD Ordering Physician: Matthew Powell Date of Service: 09/09/23 Procedure(s): FL barium swallow modified Accession Number(s): [id number] cc: Matthew Powell EXAMINATION: Modified Barium Swallows [...] in OV> 10/05/23 1124 DD/ 1507 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: REASON FOR REFERRAL No Information MEDICATIONS [...] Notes Problem Esophageal dysphagia (R13.10) Active confirmed 62745248 Problem Gastroesophageal reflux disease, esophagitis presence not specified (K21.9) Active confirmed 892297538 Problem Abnormal upper gastrointestinal barium series (R93.3) Active confirmed 417484392 Problem 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) Active confirmed 307611238 Problem History of esophageal cancer (Z85.01) Active confirmed 714739931 Problem Small bowel obstruction (K56.609) Active confirmed 921211706 Problem Constipation, unspecified constipation type (K59.00) Active confirmed 71132559 Problem Dysphagia (R13.10) Active confirmed Dys phagia (61286655) Problem Personal history of malignant neoplasm of esophagus (Z85.01) Active confirmed History of malignant neoplasm of esophagus (073725963) Problem Hoarseness (R49.0) Active confirmed 502 02203 Problem Pharyngeal dysphagia (R13.13) Active confirmed 00334198745713 Problem Chronic cough (R05.3) Active confirmed 85047274 VITAL SIGNS Temperature 97.7 degrees Fahrenheit 08/13/2023 Blood pressure diastolic 00 mm Hg 08/13/2023 Height 68 in 08/13/2023 Blood pressure systolic 00 mm Hg 08/13/2023 Weight 165 lbs 08/13/2023 BMI 25.09 kg/m2 08/13/2023 Encounters Encounter Location Date Provider Diagnosis [facility] [address] [place] [address] 08/13/2023 Matthew Powell Hoarseness R49.0 ; Pharyngeal dysphagia R13.13 ; History of esophageal cancer Z85.01 and Chronic cough R05.3 [facility] [address] [place] [address] 08/12/2023 Matthew Powell ASSESSMENTS Encounter Date Diagnosis [...] Insured Coverage Start Date Coverage End Date [facility] [address] [facility] [place] [place] [phone] [id number] NORMANDI N, FUAD Self - patient is the insured MEDICAL (GENERAL) HISTORY Medical History History ICD Code Denies SD,DM,CVA,Lung disease,renal dise ase Prostate cancer--surgery as below HTN Hyperlipidemia Negative screening colonoscopies in 1998 and in 2009 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 Brooks--surgery with Dr. Garvey at [facility] 02/2019 SBO 02/2020--treated with NG tube--normal SB [...]
--- OUTSIDE RECORDS SUMMARY | 2024-03-19 16:08 | XMS_ITS ---
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 Role Phone Matthew Hirsch DO Primary Care Provider Unavail able Matthew Powell Unavailable [phone] ALLERGIES No Known Allergies REASON FOR VISIT [...] Code Notes Problem Hoarseness (R49.0) Active confirmed 75029750 Problem Pharyngeal dysphagia (R13.13) Active confirmed 28044206843939 Problem Chronic cough (R05.3) Active confirmed 19440580 VITAL SIGNS BMI 25.09 kg/m2 08/13/2023 Blood pressure systolic 00 mm Hg 08/13/19 24 Blood pressure diastolic 00 mm Hg 024 Height 68 in 08/13/2023 Temperature 97.7 degrees Fahrenheit 08/13/19 24 Weight 165 lbs 08/13/2023 Encounters Encounter Location Date Provider Diagnosis [facility] [address] [place] [address] 08/13/2023 Matthew Powell Hoarseness R49.0 ; Pharyngeal [...]
--- NOTE | 2024-03-19 16:33 | PC.NURSE ---
Addendum entered by Saadia Francisco RN 03/19/24 16:38: 20g R hand placed by EMS. Original Note: Pt comes from home today via EMS for complaints of no BM in 5 days with significant burning/pain to the rectum. States he attempted to use a suppository today with no success. Also reports was seen here last Thursday for the same issue. VSS, A&Ox3, afebrile. NAD at this time; awaiting ED Provider.
--- NOTE | 2024-03-19 16:58 | ED.GENADULT ---
HPI - General Adult General Chief complaint: General Medical Stated complaint: from home, bowel obstruction x5 days Time Seen by Provider: 03/19/24 16:04 Source: patient, RN notes reviewed and old records reviewed Mode of arrival: ambulatory Limitations: no limitations History of Present Illness ED Provider: Nina North PA-C HPI narrative: 78 year old male with a PMHx of esophageal adenocarcinoma s/p distal esophagectomy with gastric pull-through in 2019 at [facility] [place] [facility] [place] prostate CA, recurrence of esophageal cancer followed by [facility], not currently on treatment, SBO with recent admission to our facility managed nonsurgically, discharged on 03/13, presenting to ED with rectal discomfort and constipation without BM x 5 days. Admits is passing flatus. Also reports dysuria. Admits to taking Miralax and prune juice without relief & placed a suppository in the rectum about 2 hours before arrival to ED. States he evacuated the suppository but no stool came out. Denies nausea, vomiting, fever, incontinence/retention, abdominal pain Onset (ago): day(s) (5) Location: buttocks (Anus/Rectum) Severity: mild Quality: burning and constant Pain Consistency: constant Relieving factors: none Exacerbating factors: none Treatments prior to arrival: other (Suppository ) Related Data Home Medications ?Medication ?Instructions ?Recorded ?Confirmed cetirizine 10 mg capsule (Allergy 10 mg PO DAILY 05/23/20 03/11/24 Relief (cetirizine)) verapamil 240 mg 24 hr 240 mg PO DAILY 11/27/21 03/11/24 capsule,extended release omeprazole 40 mg capsule,delayed 40 mg PO BID@0630,1630 06/05/23 03/11/24 release gabapentin 300 mg capsule 600 mg PO BID 11/18/23 03/11/24 multivitamin with minerals-folic 1 tab PO DAILY 03/11/24 03/11/24 acid 80 mcg chewable tablet (Centrum Adult 50 Plus) Allergies Allergy/AdvReac Type Severity Reaction Status Date / Time No Known Allergies Allergy Verified 03/19/24 15:56 [No Known Allergies*] Review of Systems Review of Systems: Constitutional: No Fever, No Chills ENT/Mouth: No Ear Pain, No Nasal Congestion, No Sinus Pain, No Hoarseness, No sore throat, No Rhinorrhea, No Swallowing Difficulty Cardiovascular: No Chest Pain, No SOB Respiratory: No Cough, No Sputum, No Wheezing Gastrointestinal: No Nausea, No Vomiting, No Diarrhea, + Constipation, No Abdominal pain, +rectal pain Genitourinary: + Dysuria, No Urinary Incontinence/retention, No Urgency, No Flank Pain Musculoskeletal: No joint pain, No Myalgias, No Joint Swelling Skin: No Skin Lesions, No rash Neuro: No Weakness, No Numbness, No Paresthesias Yes all other systems are reviewed and are negative Constitutional: Constitutional: Reports as per HPI Gastrointestinal: Gastrointestinal: Reports abdominal pain, Reports constipation and Reports GI cramping Genitourinary: Genitourinary: Reports no additional male genitourinary complaints [facility] Past Medical History Attestation statement: The following information was validated with the patient. 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 GERD (gastroesophageal reflux disease) Constipation Throat mass Mass of right side of neck Personal history of nicotine dependence History of prostate cancer (~2004) History of small bowel obstruction (~2019) Shingles Vitamin B12 deficiency Diverticulosis (~1998) Osteoarthritis Basal cell carcinoma, scalp/neck Cervical spondylosis Hypercholesterolemia Hypertension Melanoma Esophageal adenocarcinoma (~2017) Surgical History History of hemorrhoidectomy (~1993) History of esophagogastroduodenoscopy (EGD) History of colonoscopy History of meniscectomy of right knee (~2003) History of esophagectomy (~2018) History of jejunostomy tube placement (~2018) History of incisional hernia repair (~2019) History of appendectomy History of prostatectomy (~2004) Family History Family History Son Non-Hodgkin lymphoma Father Prostate cancer Mother No problems noted. Social History Social History Household Members: Spouse Housing: Condominium Are you a primary wound care specialist to a significant other at home: No Do you presently have visiting nurse or other home services: No Alcohol intake: former Patient Tobacco Use Status: Former Tobacco user Years Smoked: 35 Second Hand Smoke Exposure: No Advance Directives Date on File: 12/04/21 service: No Current occupational status: retired Current occupation: rt handed Physical Exam ED Vital Signs: Vital Signs - 24 hr 03/19/24 15:53 03/19/24 15:58 03/19/24 18:07 Temperature 97.7 F 97.7 F Pulse Rate 73 73 71 Respiratory Rate 16 16 16 Blood Pressure 148/74 H 148/74 H 139/62 Pulse Oximetry 97 97 95 Oxygen Delivery Method Room Air Room Air Room Air BMI result Body Mass Index 25.1 Const General: cooperative Nutritional Appearance: average body habitus and well nourished Orientation/consciousness: patient oriented x3 Limitations: no limitations HENMT Head: Yes normal to inspection and Yes atraumatic Ears: hearing grossly normal bilaterally General nose exam: Normal external nose present Face and sinus: Yes normal facial exam Eyes General: appearance normal, both eyes and all related structures EOM: EOMs intact bilaterally Neck Neck: Yes normal visual inspection and Yes no meningeal signs Chest Chest palpation & inspection: normal inspection of the chest Resp Effort & Inspection: normal respiratory effort and able to speak in complete sentences Auscultation: clear to auscultation bilaterally Cardio Jugular venous distension: no JVD Palpation: normal PMI Rate: regular rate Rhythm: regular rhythm Heart sounds: S1 normal heart sound present and S2 normal heart sound present GI Other: +soft stool appreciated in rectum Inspection: Yes normal to inspection Palpation (GI): Soft to palpation, nontender, no guarding, no hernias and No Bladder palpation abnormal Auscultation: normal bowel sounds Rectal Exam - Male: Yes normal sphincter tone General: No Bladder palpation abnormal and Yes no CVA tenderness Back/Spine/Pelvis Back: no CVA tenderness Skin General skin exam: no rashes or lesions noted Lesions: no lesions Rashes: no rashes Wounds: no wounds Neuro General: patient oriented x3 and no meningeal signs Cranial nerves: Yes CN's II-XII intact bilaterally Gait exam (Neuro): Normal gait present Extrem General: Yes normal to inspection Course Course Course Narrative: -Dr. Cueva evaluated patient in the ED, nonsurgical. Recommended if patient needs admission will go to medicine -labs reassuring > patient with liquidy BMs in the ED after medications. No substantial a BM. -0942--patient is still without BM. Liquid on pad. Additional rectal exam performed and still unable to palpate impaction. Will obtain CT for further eval and repeat bladder scan -2199--bladder scan with greater than 500 cc > will place Dia CT abdomen pelvis wo IV con IMPRESSION: Large volume stool in the rectum with some circumferential thickening of the distal rectum which may reflect early stercoral colitis. No evidence of obstruction. > will give additional enema and likely admit -case discussed with hospitalist who accepted admission. General surgery consult placed Medications Administered Generic Name Dose Route Start Last Admin Trade Name Freq PRN Reason Stop Dose Admin Sodium Chloride 3 ml 03/20/24 00:00 03/20/24 01:16 0.9 % Sodium Chloride Flush 3 Ml Syringe IVFLUSH Not Given QSHIFT GAYLA Discontinued Medications Generic Name Dose Route Start Last Admin Trade Name Freq PRN Reason Stop Dose Admin Bisacodyl 10 mg 03/19/24 23:49 03/20/24 00:50 Bisacodyl 10 Mg Supp.Rect AL 03/19/24 23:50 Not Given ONCE ONE Mineral Oil 133 ml 03/19/24 17:05 03/19/24 18:07 Mineral Oil Enema 133 Ml Enema AL 03/19/24 17:06 133 ml ONCE ONE Administration Polyethylene Glycol 17 gm 03/19/24 18:56 03/19/24 20:14 Polyethylene Glycol 3350 17 Gm Powd.Pack PO 03/19/24 18:57 17 gm ONCE ONE Administration Senna 15 ml 03/19/24 18:37 03/19/24 18:54 Senna Piney Extract Oral Syrup 15 Ml Syrup PO 03/19/24 18:38 15 ml ONCE ONE Administration Medical Decision Making Medical Decision Making MDM Narrative: 78 year old male with a PMHx of esophageal adenocarcinoma s/p distal esophagectomy with gastric pull-through in 2019 at [facility] [place] [facility] [place] prostate [place], recurrence of esophageal cancer followed by [facility], not currently on treatment, SBO with recent admission to our facility managed nonsurgically, discharged on 03/13, presenting to ED with rectal discomfort and constipation without BM x 5 days. On exam vital signs stable, NAD/nontoxic appearing, abdomen soft/nontender. On rectal exam soft stool appreciated in the rectum, no hemorrhoid or palpable mass. Concern for fecal impaction, likely soft distally due to recent suppository use. Lower suspicion for recurrent SBO, appendicitis/diverticulitis or pancreatitis Plan: labs, UA, fecal disimpaction attempted, enema, re-evaluate Differential Diagnosis Differential Diagnoses: The differential diagnosis associated with the presentation includes Fecal impaction, SBO, LBO, constipation, Hemorrhoids, Prostate hyperplasia Admission/Observation Consideration of admission/observation: Escalation of care including admission/observation considered Lab Data MDM Lab Attestation statement: I reviewed the patient's lab results. 03/19/24 17:19 03/19/24 17:19 Labs: Lab Results 03/19/24 03/19/24 Range/Units 17:19 23:12 WBC 8.5 (4.8-10.8) X10*3/uL RBC 4.71 (4.60-5.80) X10*6/uL Hgb 13.7 L (14.0-18.0) g/dl Hct 40.7 L (42.0-52.0) % MCV 86.4 (80.0-98.0) fL MCH 29.1 (27.0-33.0) pg MCHC 33.7 (31.0-36.0) g/dl RDW 13.6 (11.0-16.0) % Plt Count 213 D (160-400) X10*3/uL MPV 10.8 (9.4-12.4) fL Immature Gran % (Auto) 0.2 (0.0-0.4) % Neut % (Auto) 68.5 (45-73) % Lymph % (Auto) 18.6 L (20-40) % Dewitt % (Auto) 10.8 (2-11) % Eos % (Auto) 1.5 (0-4) % Baso % (Auto) 0.4 (0-2) % Lymph # (Auto) 1.6 (1.2-4.9) X10*3/uL Dewitt # (Auto) 0.9 (0.1-1.2) X10*3/uL Eos # (Auto) 0.1 (0.0-0.4) X10*3/uL Baso # (Auto) 0.0 (0.0-0.2) X10*3/uL Abs Immat Gran (auto) 0.02 (0.00-0.03) X10*3/uL Absolute Neuts (auto) 5.8 (2.0-8.3) x10*3/uL Absolute Nucleated RBC 0.000 (0.0-0.012) X10*3/uL Nucleated RBC % (auto) 0.0 (0.0-0.2) /100WBC Sodium 143 (135-145) mmol/L Potassium 3.7 (3.3-5.1) mmol/L Chloride 110 H (96-108) mmol/L Carbon Dioxide 24 (22-29) mmol/L Anion Gap 13 (12-20) BUN 10 (9-16) mg/dL Creatinine 1.02 (0.5-1.4) mg/dL Estim Creat Clear Calc 55.8 Estimated GFR > 60 Random Glucose 107 (60-115) mg/dL Calcium 8.8 (8.4-10.2) mg/dL Magnesium 2.2 (1.6-2.6) mg/dL Total Bilirubin 0.3 (0.0-1.0) mg/dL Direct Bilirubin 0.1 (0.0-0.5) mg/dL AST 20 (5-37) U/L ALT 14 (0-40) U/L Alkaline Phosphatase 90 (39-117) U/L Total Protein 6.8 (6.5-8.0) g/dL Albumin 3.8 (3.5-5.0) g/dL Lipase 28 (8-78) U/L Urine Color Yellow Urine Appearance Clear Urine pH 7.0 (5.0-9.0) Ur Specific [place] 1.010 (1.005-1.025) Urine Protein Trace (Neg-Trace) mg/dL Urine Glucose (UA) Negative (Negative) mg/dL Urine Ketones Negative (Negative) mg/dL Urine Blood Negative (Negative) Urine Nitrite Negative (Negative) Ur Leukocyte Esterase Trace H (Negative) Urine RBC 0-2 (0-2) /HPF Urine WBC 0-5 (0-5) /HPF Ur Squamous Epith Cells 0-2 (0-2) /HPF Urine Bacteria None Seen (None Seen) Hyaline Casts 0-2 (0-2) /LPF Radiology Impression Discussion of test interpretation with radiology: I have reviewed the radiologist's reading. Independent Historian Clinical information obtained from an independent historian. History obtained from or confirmed by: Spouse External Record Review External record reviewed: Inpatient record, Office record, Outpatient record, Prior outpatient labs, Prior outpatient radiology, Primary care record and Outside ED record Tests considered The following testing was considered but not selected: As above Prescription Management I considered prescription management with: Pain Medication Chronic Conditions Patient?s care impacted by: Other Critical Care Time Critical Care Time Critical Care Time: No Discharge Plan Discharge Clinical Impression: Fecal impaction, Acute urinary retention Patient Disposition: Admitted As Inpatient Interventions: Admission Worksheet (ED) Last Done: 03/20/24 00:57 Discharge Date/Time: 03/20/24 02:24
[2024-03-19 17:24] LABS: MANUAL DIFF FLAG NO
[2024-03-19 17:25] LABS: Basophils Percent Auto 0.4 % (0-2); Eosinophils Absolute Auto 0.1 X10*3/uL (0.0-0.4); Eosinophils Percent Auto 1.5 % (0-4); Hematocrit 40.7 % (42.0-52.0); Hemoglobin 13.7 g/dl (14.0-18.0); Imm Gran Abs Auto 0.02 X10*3/uL (0.00-0.03); Imm Gran Pct Auto 0.2 % (0.0-0.4); Lymphocytes Absolute Auto 1.6 X10*3/uL (1.2-4.9); Lymphocytes Percent Auto 18.6 % (20-40); Mean Corpuscular HGB Conc 33.7 g/dl (31.0-36.0); Mean Corpuscular Hemoglobin 29.1 pg (27.0-33.0); Mean Corpuscular Volume 86.4 fL (80.0-98.0); Mean Platelet Volume 10.8 fL (9.4-12.4); Monocytes Absolute Auto 0.9 X10*3/uL (0.1-1.2); Monocytes Percent Auto 10.8 % (2-11); Neutrophils Absolute Auto 5.8 x10*3/uL (2.0-8.3); Neutrophils Percent Auto 68.5 % (45-73); Platelet Count 213 X10*3/uL (160-400); Red Blood Count 4.71 X10*6/uL (4.60-5.80); Red Cell Distribution Width 13.6 % (11.0-16.0); White Blood Count 8.5 X10*3/uL (4.8-10.8)
[2024-03-19 17:39] LABS: Alanine Aminotransferase 14 U/L (0-40); Albumin Level 3.8 g/dL (3.5-5.0); Alkaline Phosphatase 90 U/L (39-117); Anion Gap 13 (12-20); Aspartate Amino Transferase 20 U/L (5-37); Bilirubin Direct 0.1 mg/dL (0.0-0.5); Bilirubin Total 0.3 mg/dL (0.0-1.0); Blood Urea Nitrogen 10 mg/dL (9-16); Calcium 8.8 mg/dL (8.4-10.2); Carbon Dioxide 24 mmol/L (22-29); Chloride 110 mmol/L (96-108); Creatinine Clr Calc Pharmacy 55.8; Estimated Glomerular Filt Rate > 60; Glucose Random 107 mg/dL (60-115); Lipase 28 U/L (8-78); Magnesium 2.2 mg/dL (1.6-2.6); Potassium 3.7 mmol/L (3.3-5.1); Sodium 143 mmol/L (135-145); Total Protein 6.8 g/dL (6.5-8.0)
[2024-03-19 18:07] VITALS: BP 139/62; PULSE 71; RESP 16; O2SAT 95
[2024-03-19] MEDS: Mineral OiL enema 133 ML ENEMA PR (18:07)
--- NOTE | 2024-03-19 18:07 | PC.NURSE ---
Mineral Oil given as charted. Pt on bedpan at this time
--- NOTE | 2024-03-19 18:45 | PC.NURSE ---
Small results of borwn liquid stool from Enema given Nina provider aware
[2024-03-19] MEDS: polyethylene glycoL 3350 17 GM POWD.PACK PO (20:14)
[2024-03-19 23:27] LABS: Appearance Urine Clear; Color Urine Yellow; Glucose Urine UA Negative (Negative); Leukocyte Esterase Urine Trace (Negative); Nitrite Urine Negative (Negative); UMIC TRIGGER UACC YES; Urine Blood Negative (Negative); Urine Ketones Negative (Negative); Urine Protein Trace mg/dL (Neg-Trace)
[2024-03-19 23:34] LABS: Bacteria Urine None Seen (None Seen); Hyaline Casts Urine 0-2 /LPF (0-2); RBC Urine 0-2 /HPF (0-2); Squamous Epithelial Cell Urine 0-2 /HPF (0-2); WBC Urine 0-5 /HPF (0-5)
--- NOTE | 2024-03-19 23:39 | P.HPHOSP_ITS ---
History of Present Illness Date of Service: 03/19/24 Chief Complaint: Constipation This is a 78-year-old male with pertinent history of esophageal cancer status post distal esophagectomy with gastric pull-through in 2008, history of prostate cancer, history of recent hospitalization due to SBO, peripheral neuropathy, gastroesophageal reflux disease who presents to the emergency department for evaluation of constipation. Patient was recently admitted with small-bowel obstruction and discharged on 03/13. Patient states he only took clear liquids for the 1st 2 days. He started having solid from the 3rd day after discharge. Patient states his last bowel movement was 5 days prior to presentation. He is able to pass gas. No nausea or vomiting. No fever, chills, chest discomfort, palpitations, shortness of breath. Does endorse generalized abdominal discomfort which is intermittent and nonradiating. Also has been having urinary hesitancy. In the emergency department, General surgery was consulted who requested admission by medicine team. Patient was given enema in the ER. Imaging with stercoral colitis. Bladder scan with high postvoid residual and Dia catheter was inserted in the ER. 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 Surgical History History of hemorrhoidectomy (~1993) History of esophagogastroduodenoscopy (EGD) History of colonoscopy History of meniscectomy of right knee (~2003) History of esophagectomy (~2018) History of jejunostomy tube placement (~2018) History of incisional hernia repair (~2019) History of appendectomy History of prostatectomy (~2004) Social History Household Members: Spouse [facility] Are you a primary respite care provider to a significant other at home: No Do you presently have visiting nurse or other home services: No Alcohol intake: former Patient Tobacco Use Status: Former Tobacco user Years Smoked: 35 Smoked in Last 30 Days: No Second Hand Smoke Exposure: No Use of substances other than those prescribed or required for medical reasons: No Advance Directives: Yes Advance Directives on File: Yes Advance Directives Date on File: 12/04/21 Do you have a plan to hurt others: No Plan Nutrition Risks: No Nutritional Risk service: No Current occupational status: retired Current occupation: rt handed [employer] Allergies Allergy/AdvReac Type Severity Reaction Status Date / Time No Known Allergies Allergy Verified 03/19/24 15:56 [No Known Allergies*] Home Medications ?Medication ?Instructions ?Recorded ?Confirmed ?Last Taken ?Type cetirizine 10 mg capsule (Allergy 10 mg PO DAILY 05/23/20 03/11/24 03/10/24 History Relief (cetirizine)) verapamil 240 mg 24 hr 240 mg PO DAILY 11/27/21 03/11/24 03/10/24 History capsule,extended release omeprazole 40 mg capsule,delayed 40 mg PO BID@0630,1630 06/05/23 03/11/24 03/10/24 History release gabapentin 300 mg capsule 600 mg PO BID 11/18/23 03/11/24 03/10/24 History multivitamin with minerals-folic 1 tab PO DAILY 03/11/24 03/11/24 03/10/24 History acid 80 mcg chewable tablet (Centrum Adult 50 Plus) Physical Exam 2 Vital Signs and Narrative: Vital Signs: Last Vital Signs Temp 97.7 F 03/19/24 15:58 Pulse 71 03/19/24 18:07 Resp 16 03/19/24 18:07 BP 139/62 03/19/24 18:07 Pulse Ox 95 03/19/24 18:07 O2 Del Method Room Air 03/19/24 18:07 BMI result Body Mass Index 25.1 Middle-aged male lying in bed in no distress Neck supple, no JVD Regular rate and rhythm, S1-S2 heard Regular breath sounds bilaterally, no wheezing or crackles appreciated Abdomen soft nontender, no guarding, no rigidity Patient is awake, alert and oriented to self, place, time and person ; no focal motor deficit Psych: Normal mood No pedal edema Results Labs 03/19/24 17:19 03/19/24 17:19 Labs: Laboratory Results - last 24 hr 03/19/24 03/19/24 17:19 23:12 MCV 86.4 MCH 29.1 MCHC 33.7 RDW 13.6 Plt Count 213 D MPV 10.8 Immature Gran % (Auto) 0.2 Neut % (Auto) 68.5 Lymph % (Auto) 18.6 L Dickinson % (Auto) 10.8 Eos % (Auto) 1.5 Baso % (Auto) 0.4 Lymph # (Auto) 1.6 Dickinson # (Auto) 0.9 Eos # (Auto) 0.1 Baso # (Auto) 0.0 Abs Immat Gran (auto) 0.02 Absolute Neuts (auto) 5.8 Absolute Nucleated RBC 0.000 Nucleated RBC % (auto) 0.0 Anion Gap 13 Estim Creat Clear Calc 55.8 Estimated GFR > 60 Random Glucose 107 Calcium 8.8 Magnesium 2.2 Total Bilirubin 0.3 Direct Bilirubin 0.1 AST 20 ALT 14 Alkaline Phosphatase 90 Total Protein 6.8 Albumin 3.8 Lipase 28 Urine Color Yellow Urine Appearance Clear Urine pH 7.0 Ur Specific Jackson 1.010 Urine Protein Trace Urine Glucose (UA) Negative Urine Ketones Negative Urine Blood Negative Urine Nitrite Negative Ur Leukocyte Esterase Trace H Urine RBC 0-2 Urine WBC 0-5 Ur Squamous Epith Cells 0-2 Urine Bacteria None Seen Hyaline Casts 0-2 Imaging Radiologist's Impressions: Impressions Abdomen/Pelvis CT 03/19/24 21:56 IMPRESSION: Large volume stool in the rectum with some circumferential thickening of the distal rectum which may reflect early stercoral colitis. No evidence of obstruction. Assessment and Plan (1) Fecal impaction: Status: Acute (2) Acute urinary retention: Status: Acute Plan This is a 78-year-old male with pertinent history of esophageal cancer status post distal esophagectomy with gastric pull-through in 2008, history of prostate cancer, history of recent hospitalization due to SBO, peripheral neuropathy, gastroesophageal reflux disease who presents to the emergency department for evaluation of constipation. #. Constipation with stercoral colitis: Large volume stool in the rectum on imaging. General surgery consulted from the ER, appreciate assistance. Mineral oil and soap suds enema, senna, MiraLax and Dulcolax being given at the time of admission. Npo for now #. Urinary retention in the setting of above: Dia catheter placed in the ER. Consulted Urology #. Peripheral neuropathy due to chemotherapy: On gabapentin Med rec pending DVT prophylaxis: Mechanical Full code Quality Stroke Does the patient have a stroke diagnosis?: No VTE Prior VTE?: No VTE Risk Level:: Medical - moderate - high VTE Device Contraindication: N/A - Device Ordered VTE Drug Contraindication: Treatment Not Indicated
[2024-03-20] VITALS (9 sets, daily range): BP systolic 128–172; BP diastolic 64–89; PULSE 60–82; RESP 16–18; TEMP 36–37.1; O2SAT 93–98; BMI 25.1
--- NOTE | 2024-03-20 00:50 | PC.NURSE ---
pt refusing further suppositories and soap suds enema. states he has used multiple at home w/o good effect. also rpts not having any good relief with enema done earlier in the shift. rpts feeling rectal discomfort after these meds and does not wish to have any further. Dr Engle aware via [place] [employer].
--- NOTE | 2024-03-20 02:35 | MHC.PIE ---
p; pt arrived from ed asking for something to drink. note; diet NPO with no specification. i; dr chung notified. no ice chip, sips or meds e; will cont to monitor
[2024-03-20 06:55] LABS: MANUAL DIFF FLAG NO
[2024-03-20 07:04] LABS: Basophils Percent Auto 0.2 % (0-2); Eosinophils Absolute Auto 0.1 X10*3/uL (0.0-0.4); Eosinophils Percent Auto 1.5 % (0-4); Hematocrit 40.5 % (42.0-52.0); Hemoglobin 13.4 g/dl (14.0-18.0); Imm Gran Abs Auto 0.02 X10*3/uL (0.00-0.03); Imm Gran Pct Auto 0.2 % (0.0-0.4); Lymphocytes Absolute Auto 1.4 X10*3/uL (1.2-4.9); Lymphocytes Percent Auto 17.5 % (20-40); Mean Corpuscular HGB Conc 33.1 g/dl (31.0-36.0); Mean Corpuscular Hemoglobin 28.7 pg (27.0-33.0); Mean Corpuscular Volume 86.7 fL (80.0-98.0); Mean Platelet Volume 11.3 fL (9.4-12.4); Monocytes Percent Auto 12.4 % (2-11); Neutrophils Absolute Auto 5.5 x10*3/uL (2.0-8.3); Neutrophils Percent Auto 68.2 % (45-73); Platelet Count 221 X10*3/uL (160-400); Red Blood Count 4.67 X10*6/uL (4.60-5.80); Red Cell Distribution Width 13.8 % (11.0-16.0); White Blood Count 8.1 X10*3/uL (4.8-10.8)
[2024-03-20 07:12] LABS: Anion Gap 11 (12-20); Blood Urea Nitrogen 10 mg/dL (9-16); Carbon Dioxide 25 mmol/L (22-29); Chloride 109 mmol/L (96-108); Estimated Glomerular Filt Rate > 60; Glucose Random 90 mg/dL (60-115); Potassium 3.7 mmol/L (3.3-5.1); Sodium 141 mmol/L (135-145)
[2024-03-20] MEDS: bisacodyL 5 MG TABLET.DR 10 MG PO (09:11)
[2024-03-20] MEDS: 0.9 % Sodium Chloride Flush 3 ML SYRINGE IVFLUSH ×3 (09:11→20:05)
[2024-03-20] MEDS: Sennosides/Docusate Sodium TABLET 2 TAB PO ×2 (09:11→20:04)
[2024-03-20] MEDS: polyethylene glycoL 3350 17 GM POWD.PACK PO (09:11)
--- NOTE | 2024-03-20 10:07 | PHA.MEDREC ---
Pharmacy Consult ? Medication Reconciliation Pharmacy has completed the medication reconciliation. Patient recently discharged 03/13. Utilized discharge packet.
[2024-03-20] MEDS: VerapamiL HCL SR 240 MG TABLET.ER PO (10:36)
--- NOTE | 2024-03-20 10:44 | P.CONGS_ITS ---
History of Present Illness Consult details Consult date: 03/20/24 Narrative: 78-year-old male with history of esophagectomy and radiation with pull through procedure for esophageal adenocarcinoma, admitted because of constipation. He came to the emergency room yesterday because he said that he has had no bowel movement for 5 days. He says that he had some suppositories yesterday but this did not help and seemed to have caused some pain in the rectum. He was recently discharged from the hospital for question of partial small-bowel obstruction. He currently denies any abdominal pain. He denies any nausea or vomiting. He is tolerating diet well. He was noted to start having bowel movements this morning. He was in urinary retention as well yesterday so a Dia catheter was inserted. Review of Systems 2 Constitutional: Constitutional: Denies chills and Denies fever(s) Cardiovascular: Cardiovascular: Denies chest pain, Denies dyspnea and Reports dyspnea on exertion Respiratory: Respiratory: Denies cough, Denies dyspnea and Reports dyspnea on exertion Gastrointestinal: Gastrointestinal: Denies hematochezia, Denies change in bowel habits and Reports constipation Genitourinary: Genitourinary: Denies hematuria and Denies difficulty urinating Musculoskeletal: Musculoskeletal: Reports abnormal gait, Reports back pain and Reports limited range of motion Neurologic: Reports abnormal gait, Denies focal weakness and Denies convulsions Psychiatric: Psychiatric: Denies depression and Denies mood swings PMFSH Past Medical History Medical History 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 Surgical History Surgical History History of hemorrhoidectomy (~1993) History of esophagogastroduodenoscopy (EGD) History of colonoscopy History of meniscectomy of right knee (~2003) History of esophagectomy (~2018) History of jejunostomy tube placement (~2018) History of incisional hernia repair (~2019) History of appendectomy History of prostatectomy (~2004) Social History Social History Household Members: Sp[facility] Are you a primary transition of care specialist to a significant other at home: No Do you presently have visiting nurse or other home services: No Alcohol intake: former Patient Tobacco Use Status: Former Tobacco user Years Smoked: 35 Second Hand Smoke Exposure: No Advance Directives Date on File: 12/04/21 service: Yes Current occupational status: retired Current occupation: rt [employer] Allergies Allergy/AdvReac Type Severity Reaction Status Date / Time No Known Allergies Allergy Verified 03/19/24 15:56 [No Known Allergies*] Active Medications: Current Medications Acetaminophen (Acetaminophen 325 Mg Tablet) 650 mg PO Q6H PRN PRN Reason: Pain, Mild (Pain Scale 1-3), fever or headache Bisacodyl (Bisacodyl 5 Mg Tablet.Dr) 10 mg PO DAILY [facility] Last Admin: 03/20/24 09:11 Dose: 10 mg Calcium Carbonate (Calcium Carbonate 750 Mg Tab.Chew) 750 mg PO Q4H PRN PRN Reason: Heartburn Gabapentin (Gabapentin 300 Mg Capsule) 600 mg PO BID [facility] Magnesium Hydroxide (Milk Of Magnesia 30 Ml Oral.Susp) 30 ml PO DAILY PRN PRN Reason: Constipation Melatonin (Melatonin 3 Mg Tablet) 6 mg PO BEDTIME PRN PRN Reason: Insomnia Multivitamins/Vitamin C (Multivitamin Tablet) 1 tab PO DAILY [facility] Omeprazole (Omeprazole 40 Mg Capsule.Dr) 40 mg PO BID@0630,1630 [facility] Ondansetron HCl (Ondansetron Hcl 4 Mg/2 Ml Vial) 4 mg IVPUSH Q8H PRN PRN Reason: Nausea and Vomiting Polyethylene Glycol (Polyethylene Glycol 3350 17 Gm Powd.Pack) 17 gm PO DAILY [facility] Last Admin: 03/20/24 09:11 Dose: 17 gm Senna/Docusate Sodium (Sennosides/Docusate Sodium Tablet) 2 tab PO BID [facility] Last Admin: 03/20/24 09:11 Dose: 2 tab Sodium Chloride (0.9 % Sodium Chloride Flush 3 Ml Syringe) 3 ml IVFLUSH QSHIFT [facility] Last Admin: 03/20/24 09:11 Dose: 3 ml Verapamil HCl (Verapamil Hcl Sr 240 Mg Tablet.Er) 240 mg PO DAILY [facility]; Protocol Last Admin: 03/20/24 10:36 Dose: 240 mg Home Medications ?Medication ?Instructions ?Recorded ?Confirmed ?Last Taken ?Type cetirizine 10 mg capsule (Allergy 10 mg PO DAILY 05/23/20 03/20/24 03/10/24 History Relief (cetirizine)) verapamil 240 mg 24 hr 240 mg PO DAILY 11/27/21 03/20/24 03/11/24 History capsule,extended release omeprazole 40 mg capsule,delayed 40 mg PO BID@0630,1630 06/05/23 03/20/24 03/18/24 History release gabapentin 300 mg capsule 600 mg PO BID 11/18/23 03/20/24 03/18/24 History multivitamin with minerals-folic 1 tab PO DAILY 03/11/24 03/20/24 03/18/24 08:00 History acid 80 mcg chewable tablet (Centrum Adult 50 Plus) Physical Exam 2 Vital Signs: Vital Signs: Last Vital Signs Temp 97.7 F 03/20/24 08:00 Pulse 67 03/20/24 10:37 Resp 18 03/20/24 08:00 BP 165/88 H 03/20/24 10:27 Pulse Ox 96 03/20/24 08:00 O2 Del Method Room Air 03/20/24 08:00 BMI result Body Mass Index 25.1 Const: General: comfortable and no acute distress Resp: Effort & Inspection: normal respiratory effort Cardio: Rate: regular rate GI: Other: Digital rectal exam done now - no fecaloma, no hard stools but with soft stool in the vault, no masses, he did have some tenderness on digital exam in the anal canal Palpation (GI): Soft to palpation, not firm, nontender and no guarding Results Labs 03/20/24 05:24 03/20/24 05:24 Labs: Abnormal lab results 03/19/24 03/19/24 03/20/24 Range/Units 17:19 23:12 05:24 Hgb 13.7 L 13.4 L (14.0-18.0) g/dl Hct 40.7 L 40.5 L (42.0-52.0) % Lymph % (Auto) 18.6 L 17.5 L (20-40) % [place] % (Auto) 12.4 H (2-11) % Chloride 110 H 109 H (96-108) mmol/L Anion Gap 11 L (12-20) Ur Leukocyte Esterase Trace H (Negative) Short CBC 03/19/24 03/20/24 Range/Units 17:19 05:24 WBC 8.5 8.1 (4.8-10.8) X10*3/uL Hgb 13.7 L 13.4 L (14.0-18.0) g/dl Hct 40.7 L 40.5 L (42.0-52.0) % Plt Count 213 D 221 (160-400) X10*3/uL BMP 03/19/24 03/20/24 17:19 05:24 Sodium 143 141 Potassium 3.7 3.7 Chloride 110 H 109 H Carbon Dioxide 24 25 BUN 10 10 Creatinine 1.02 0.89 Calcium 8.8 9.0 Liver Function 03/19/24 Range/Units 17:19 Total Bilirubin 0.3 (0.0-1.0) mg/dL Direct Bilirubin 0.1 (0.0-0.5) mg/dL AST 20 (5-37) U/L ALT 14 (0-40) U/L Alkaline Phosphatase 90 (39-117) U/L Albumin 3.8 (3.5-5.0) g/dL Urine 03/19/24 Range/Units 23:12 Urine Color Yellow Urine Appearance Clear Urine pH 7.0 (5.0-9.0) Ur Specific [place] 1.010 (1.005-1.025) Urine Protein Trace (Neg-Trace) mg/dL Urine Glucose (UA) Negative (Negative) mg/dL All other labs normal. Imaging Abdomen CT scan report/results: report reviewed and image reviewed CT scan - pelvis: report reviewed and image reviewed Additional studies: Laboratory Results WBC 8.1 X10*3/uL (4.8-10.8) 03/20/24 05:24 RBC 4.67 X10*6/uL (4.60-5.80) 03/20/24 05:24 Hgb 13.4 g/dl (14.0-18.0) L 03/20/24 05:24 Hct 40.5 % (42.0-52.0) L 03/20/24 05:24 MCV 86.7 fL (80.0-98.0) 03/20/24 05:24 MCH 28.7 pg (27.0-33.0) 03/20/24 05:24 MCHC 33.1 g/dl (31.0-36.0) 03/20/24 05:24 RDW 13.8 % (11.0-16.0) 03/20/24 05:24 Plt Count 221 X10*3/uL (160-400) 03/20/24 05:24 MPV 11.3 fL (9.4-12.4) 03/20/24 05:24 Immature Gran % (Auto) 0.2 % (0.0-0.4) 03/20/24 05:24 Neut % (Auto) 68.2 % (45-73) 03/20/24 05:24 Lymph % (Auto) 17.5 % (20-40) L 03/20/24 05:24 [place] % (Auto) 12.4 % (2-11) H 03/20/24 05:24 Eos % (Auto) 1.5 % (0-4) 03/20/24 05:24 Baso % (Auto) 0.2 % (0-2) 03/20/24 05:24 Lymph # (Auto) 1.4 X10*3/uL (1.2-4.9) 03/20/24 05:24 [place] # (Auto) 1.0 X10*3/uL (0.1-1.2) 03/20/24 05:24 Eos # (Auto) 0.1 X10*3/uL (0.0-0.4) 03/20/24 05:24 Baso # (Auto) 0.0 X10*3/uL (0.0-0.2) 03/20/24 05:24 Abs Immat Gran (auto) 0.02 X10*3/uL (0.00-0.03) 03/20/24 05:24 Absolute Neuts (auto) 5.5 x10*3/uL (2.0-8.3) 08/11/24 05:24 Absolute Nucleated RBC 0.000 X10*3/uL (0.0-0.012) 03/20/24 05:24 Nucleated RBC % (auto) 0.0 /100WBC (0.0-0.2) 03/20/24 05:24 Sodium 141 mmol/L (135-145) 03/20/24 05:24 Potassium 3.7 mmol/L (3.3-5.1) 03/20/24 05:24 Chloride 109 mmol/L (96-108) H 03/20/24 05:24 Carbon Dioxide 25 mmol/L (22-29) 03/20/24 05:24 Anion Gap 11 (12-20) L 03/20/24 05:24 BUN 10 mg/dL (9-16) 03/20/24 05:24 Creatinine 0.89 mg/dL (0.5-1.4) 03/20/24 05:24 Estim Creat Clear Calc 64.0 03/20/24 05:24 Estimated GFR > 60 03/20/24 05:24 Random Glucose 90 mg/dL (60-115) 03/20/24 05:24 Calcium 9.0 mg/dL (8.4-10.2) 03/20/24 05:24 Magnesium 2.2 mg/dL (1.6-2.6) 03/19/24 17:19 Total Bilirubin 0.3 mg/dL (0.0-1.0) 03/19/24 17:19 Direct Bilirubin 0.1 mg/dL (0.0-0.5) 03/19/24 17:19 AST 20 U/L (5-37) 03/19/24 17:19 ALT 14 U/L (0-40) 03/19/24 17:19 Alkaline Phosphatase 90 U/L (39-117) 03/19/24 17:19 Total Protein 6.8 g/dL (6.5-8.0) 03/19/24 17:19 Albumin 3.8 g/dL (3.5-5.0) 03/19/24 17:19 Lipase 28 U/L (8-78) 03/19/24 17:19 Urine Color Yellow 03/19/24 23:12 Urine Appearance Clear 03/19/24 23:12 Urine pH 7.0 (5.0-9.0) 03/19/24 23:12 Ur Specific [place] 1.010 (1.005-1.025) 03/19/24 23:12 Urine Protein Trace mg/dL (Neg-Trace) 03/19/24 23:12 Urine Glucose (UA) Negative mg/dL (Negative) 03/19/24 23:12 Urine Ketones Negative mg/dL (Negative) 03/19/24 23:12 Urine Blood Negative (Negative) 03/19/24 23:12 Urine Nitrite Negative (Negative) 03/19/24 23:12 Ur Leukocyte Esterase Trace (Negative) H 03/19/24 23:12 Urine RBC 0-2 /HPF (0-2) 03/19/24 23:12 Urine WBC 0-5 /HPF (0-5) 03/19/24 23:12 Ur Squamous Epith Cells 0-2 /HPF (0-2) 03/19/24 23:12 Urine Bacteria None Seen (None Seen) 03/19/24 23:12 Hyaline Casts 0-2 /LPF (0-2) 03/19/24 23:12 Impressions Abdomen/Pelvis CT 03/19/24 21:56 IMPRESSION: Large volume stool in the rectum with some circumferential thickening of the distal rectum which may reflect early stercoral colitis. No evidence of obstruction. Assessment and Plan (1) Fecal impaction: Status: Acute He has had some constipation. I did a digital rectal exam just now. Actually had started to have some bowel movements this morning so the rectal vault had some soft stools without any fecal lipoma or hard stools I did not feel any anal mass or rectal mass I would continue with a good bowel regimen including stool softeners, fiber supplements and occasional MiraLax. His abdominal exam is otherwise benign. He looks well overall. He says he was up-to-date with his colonoscopies. Procedures Date of Service Date of Service: 03/24/24
--- NOTE | 2024-03-20 11:30 | P.PNIM_ITS ---
Subjective Subjective Date of Service: 03/20/24 Interval History: passing small amount of liquid stool no N/V Review of Systems Review of Systems: Yes all other systems are reviewed and are negative Physical Exam 2 Vital Signs: Vital Signs: Last Vital Signs Temp 97.7 F 03/20/24 08:00 Pulse 67 03/20/24 10:37 Resp 18 03/20/24 08:00 BP 165/88 H 03/20/24 10:27 Pulse Ox 96 03/20/24 08:00 O2 Del Method Room Air 03/20/24 08:00 BMI result Body Mass Index 25.1 Gen: in no acute distress HEENT: sclera anicteric, moist mucus membranes Neck: supple Lungs: clear to auscultation bilaterally Heart: regular rate and rhythm, no murmurs Abd: soft, non-tender, non-distended, active bowel sounds Ext: no edema Skin: warm/well-perfused Neuro: alert and oriented x3, no focal findings Psych: appropriate affect Objective Data Active Medications Acetaminophen (Acetaminophen 325 Mg Tablet) 650 mg PO Q6H PRN PRN Reason: Pain, Mild (Pain Scale 1-3), fever or headache Bisacodyl (Bisacodyl 5 Mg Tablet.) 10 mg PO DAILY [facility] Last Admin: 03/20/24 09:11 Dose: 10 mg Documented By: VAMSI Calcium Carbonate (Calcium Carbonate 750 Mg Tab.Chew) 750 mg PO Q4H PRN PRN Reason: Heartburn Gabapentin (Gabapentin 300 Mg Capsule) 600 mg PO BID [facility] Magnesium Hydroxide (Milk Of Magnesia 30 Ml Oral.Susp) 30 ml PO DAILY PRN PRN Reason: Constipation Melatonin (Melatonin 3 Mg Tablet) 6 mg PO BEDTIME PRN PRN Reason: Insomnia Multivitamins/Vitamin C (Multivitamin Tablet) 1 tab PO DAILY [facility] Omeprazole (Omeprazole 40 Mg Capsule.) 40 mg PO BID@0630,1630 [facility] Ondansetron HCl (Ondansetron Hcl 4 Mg/2 Ml Vial) 4 mg IVPUSH Q8H PRN PRN Reason: Nausea and Vomiting Polyethylene Glycol (Polyethylene Glycol 3350 17 Gm Powd.Pack) 17 gm PO DAILY [facility] Last Admin: 03/20/24 09:11 Dose: 17 gm Documented By: VAMSI Senna/Docusate Sodium (Sennosides/Docusate Sodium Tablet) 2 tab PO BID [facility] Last Admin: 03/20/24 09:11 Dose: 2 tab Documented By: VAMSI Sodium Chloride (0.9 % Sodium Chloride Flush 3 Ml Syringe) 3 ml IVFLUSH QSHIFT [facility] Last Admin: 03/20/24 09:11 Dose: 3 ml Documented By: VAMSI Verapamil HCl (Verapamil Hcl Sr 240 Mg Tablet.Er) 240 mg PO DAILY [facility]; Protocol Last Admin: 03/20/24 10:36 Dose: 240 mg Documented By: VAMSI Labs 03/20/24 05:24 03/20/24 05:24 Labs: Laboratory Results - last 24 hr 03/19/24 03/19/24 03/20/24 17:19 23:12 05:24 MCV 86.4 86.7 MCH 29.1 28.7 MCHC 33.7 33.1 RDW 13.6 13.8 Plt Count 213 D 221 MPV 10.8 11.3 Immature Gran % (Auto) 0.2 0.2 Neut % (Auto) 68.5 68.2 Lymph % (Auto) 18.6 L 17.5 L [place] % (Auto) 10.8 12.4 H Eos % (Auto) 1.5 1.5 Baso % (Auto) 0.4 0.2 Lymph # (Auto) 1.6 1.4 [place] # (Auto) 0.9 1.0 Eos # (Auto) 0.1 0.1 Baso # (Auto) 0.0 0.0 Abs Immat Gran (auto) 0.02 0.02 Absolute Neuts (auto) 5.8 5.5 Absolute Nucleated RBC 0.000 0.000 Nucleated RBC % (auto) 0.0 0.0 Anion Gap 13 11 L Estim Creat Clear Calc 55.8 64.0 Estimated GFR > 60 > 60 Random Glucose 107 90 Calcium 8.8 9.0 Magnesium 2.2 Total Bilirubin 0.3 Direct Bilirubin 0.1 AST 20 ALT 14 Alkaline Phosphatase 90 Total Protein 6.8 Albumin 3.8 Lipase 28 Urine Color Yellow Urine Appearance Clear Urine pH 7.0 Ur Specific [place] 1.010 Urine Protein Trace Urine Glucose (UA) Negative Urine Ketones Negative Urine Blood Negative Urine Nitrite Negative Ur Leukocyte Esterase Trace H Urine RBC 0-2 Urine WBC 0-5 Ur Squamous Epith Cells 0-2 Urine Bacteria None Seen Hyaline Casts 0-2 Assessment and Plan (1) Acute urinary retention: Status: Acute (2) Fecal impaction: Status: Acute Plan d2 78yo M with hx esophageal CA s/p esophagectomy + gastric pull-through, hx prostate CA, recent hospitalization for SBO. Presenting with no BM x5d, admitted for constipation with stercoral colitis constipation/stercoral colitis - Surgery consult; bowel regimen; advance diet to clears acute urinary retention - likely due to stool burdern; Dia in place; Urology consult pending peripheral neuropathy - gabapentin HTN - verapamil VTE ppx - enoxaparin dispo - eventual home In my clinical judgment, the patient requires continued inpatient hospitalization for the following reasons: colitis Total time managing care of this patient today: 35 minutes. Quality Stroke Does the patient have a stroke diagnosis?: No VTE Prior VTE?: No VTE Risk Level:: Medical - moderate - high VTE Device Contraindication: N/A - Device Ordered VTE Drug Contraindication: Treatment Not Indicated
[2024-03-20] MEDS: Enoxaparin Sodium 40 MG/0.4 ML SYRINGE SUBCUT (12:09)
[2024-03-20] MEDS: ondansetron HCL 4 MG/2 ML VIAL IVPUSH (12:11)
--- NOTE | 2024-03-20 15:36 | PC.NURSE ---
Pt was able to have two small, soft, formed bowel movements this shift.
--- NOTE | 2024-03-20 15:37 | PM.UROCN ---
History of Present Illness Consult details Consult date: 03/20/24 Narrative: 78-year-old male with pertinent history of esophageal cancer status post distal esophagectomy with gastric pull-through in 2008, history of prostate cancer s/p prostatectomy, history of recent hospitalization due to SBO, peripheral neuropathy, gastroesophageal reflux disease who presents to the emergency department for evaluation of constipation. Patient was recently admitted with small-bowel obstruction and discharged on 03/13. Last bowel movement was 5 days prior to presentation. No nausea or vomiting. No fever, chills, chest discomfort, palpitations, shortness of breath. Hoskins placed in ED. Review of Systems Review of Systems: Yes all other systems are reviewed and are negative Constitutional: Constitutional: Reports no additional constitutional complaints Eyes: Eyes: Reports no additional eye complaints ENT: Reports system reviewed and no additional complaints, except as documented Cardiovascular: Cardiovascular: Reports no additional cardiovascular complaints Respiratory: Respiratory: Reports no additional respiratory complaints Gastrointestinal: Gastrointestinal: Reports no additional gastrointestinal complaints Genitourinary: Genitourinary: Reports as per HPI Musculoskeletal: Musculoskeletal: Reports no additional musculoskeletal complaints Integumentary/Breasts: Skin/Breast: Reports system reviewed and no additional complaints, except as docu Neurologic: Reports system reviewed and no additional complaints, except as documented Psychiatric: Psychiatric: Reports no additional psychiatric complaints Endocrine: Endocrine: Reports no additional endocrine complaints Hematologic/Lymphatic: Hematologic/Lymphatic: Reports no additional hematologic/lymphatic complaints Allergic/Immunologic: Allergic/Immunologic: Reports no additional allergic/immunologic complaints PMFSH Past Medical History Medical History 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 Surgical History Surgical History History of hemorrhoidectomy (~1993) History of esophagogastroduodenoscopy (EGD) History of colonoscopy History of meniscectomy of right knee (~2003) History of esophagectomy (~2018) History of jejunostomy tube placement (~2018) History of incisional hernia repair (~2019) History of appendectomy History of prostatectomy (~2004) Social History Social History Household Members: Spouse [facility] Are you a primary care attendant to a significant other at home: No Do you presently have visiting nurse or other home services: No Alcohol intake: former Patient Tobacco Use Status: Former Tobacco user Years Smoked: 35 Second Hand Smoke Exposure: No Advance Directives Date on File: 12/04/21 service: No Current occupational status: retired Current occupation: rt [employer] Allergies Allergy/AdvReac Type Severity Reaction Status Date / Time No Known Allergies Allergy Verified 03/19/24 15:56 [No Known Allergies*] Active Medications: Current Medications Acetaminophen (Acetaminophen 325 Mg Tablet) 650 mg PO Q6H PRN PRN Reason: Pain, Mild (Pain Scale 1-3), fever or headache Bisacodyl (Bisacodyl 5 Mg Tablet.) 10 mg PO DAILY [facility] Last Admin: 03/20/24 09:11 Dose: 10 mg Calcium Carbonate (Calcium Carbonate 750 Mg Tab.Chew) 750 mg PO Q4H PRN PRN Reason: Heartburn Enoxaparin Sodium (Enoxaparin Sodium 40 Mg/0.4 Ml Syringe) 40 mg SUBCUT Q24H [facility] Last Admin: 03/20/24 12:09 Dose: 40 mg Gabapentin (Gabapentin 300 Mg Capsule) 600 mg PO BID [facility] Magnesium Hydroxide (Milk Of Magnesia 30 Ml Oral.Susp) 30 ml PO DAILY PRN PRN Reason: Constipation Melatonin (Melatonin 3 Mg Tablet) 6 mg PO BEDTIME PRN PRN Reason: Insomnia Multivitamins/Vitamin C (Multivitamin Tablet) 1 tab PO DAILY GAY[facility] Omeprazole (Omeprazole 40 Mg Capsule.Dr) 40 mg PO BID@0630,1630 [facility] Ondansetron HCl (Ondansetron Hcl 4 Mg/2 Ml Vial) 4 mg IVPUSH Q8H PRN PRN Reason: Nausea and Vomiting Last Admin: 03/20/24 12:11 Dose: 4 mg Polyethylene Glycol (Polyethylene Glycol 3350 17 Gm Powd.Pack) 17 gm PO DAILY [facility] Last Admin: 03/20/24 09:11 Dose: 17 gm Senna/Docusate Sodium (Sennosides/Docusate Sodium Tablet) 2 tab PO BID [facility] Last Admin: 03/20/24 09:11 Dose: 2 tab Sodium Chloride (0.9 % Sodium Chloride Flush 3 Ml Syringe) 3 ml IVFLUSH QSHIFT [facility] Last Admin: 03/20/24 09:11 Dose: 3 ml Verapamil HCl (Verapamil Hcl Sr 240 Mg Tablet.Er) 240 mg PO DAILY [facility]; Protocol Last Admin: 03/20/24 10:36 Dose: 240 mg Home Medications ?Medication ?Instructions ?Recorded ?Confirmed ?Last Taken ?Type cetirizine 10 mg capsule (Allergy 10 mg PO DAILY 05/23/20 03/20/24 03/10/24 History Relief (cetirizine)) verapamil 240 mg 24 hr 240 mg PO DAILY 11/27/21 03/20/24 03/11/24 History capsule,extended release omeprazole 40 mg capsule,delayed 40 mg PO BID@0630,1630 06/05/23 03/20/24 03/18/24 History release gabapentin 300 mg capsule 600 mg PO BID 11/18/23 03/20/24 03/18/24 History multivitamin with minerals-folic 1 tab PO DAILY 03/11/24 03/20/24 03/18/24 08:00 History acid 80 mcg chewable tablet (Centrum Adult 50 Plus) Physical Exam Vital Signs: Vital Signs: Last Vital Signs Temp 98.2 F 03/20/24 14:58 Pulse 66 03/20/24 14:58 Resp 16 03/20/24 14:58 BP 129/72 03/20/24 14:58 Pulse Ox 95 03/20/24 14:58 O2 Del Method Room Air 03/20/24 14:58 BMI result Body Mass Index 25.1 Const: General: healthy appearing, no acute distress and well developed Orientation/consciousness: patient oriented x3 HEENT: Head: Yes normocephalic and Yes atraumatic Eyes: Conjunctivae: conjunctivae normal Neck: Neck: Yes normal visual inspection Chest: Chest palpation & inspection: normal inspection of the chest Resp: Effort & Inspection: normal respiratory effort Cardio: Rate: regular rate GI: Inspection: Yes normal to inspection Palpation (GI): Soft to palpation : Other: hoskins in place Penis: normal penis Neuro: General: patient oriented x3 Psych: Appearance: grossly normal Affect: normal affect Results Labs 03/20/24 05:24 03/20/24 05:24 Labs: Abnormal lab results 03/19/24 03/19/24 03/20/24 Range/Units 17:19 23:12 05:24 Hgb 13.7 L 13.4 L (14.0-18.0) g/dl Hct 40.7 L 40.5 L (42.0-52.0) % Lymph % (Auto) 18.6 L 17.5 L (20-40) % Gem % (Auto) 12.4 H (2-11) % Chloride 110 H 109 H (96-108) mmol/L Anion Gap 11 L (12-20) Ur Leukocyte Esterase Trace H (Negative) Short CBC 03/19/24 03/20/24 Range/Units 17:19 05:24 WBC 8.5 8.1 (4.8-10.8) X10*3/uL Hgb 13.7 L 13.4 L (14.0-18.0) g/dl Hct 40.7 L 40.5 L (42.0-52.0) % Plt Count 213 D 221 (160-400) X10*3/uL BMP 03/19/24 03/20/24 17:19 05:24 Sodium 143 141 Potassium 3.7 3.7 Chloride 110 H 109 H Carbon Dioxide 24 25 BUN 10 10 Creatinine 1.02 0.89 Calcium 8.8 9.0 Liver Function 03/19/24 Range/Units 17:19 Total Bilirubin 0.3 (0.0-1.0) mg/dL Direct Bilirubin 0.1 (0.0-0.5) mg/dL AST 20 (5-37) U/L ALT 14 (0-40) U/L Alkaline Phosphatase 90 (39-117) U/L Albumin 3.8 (3.5-5.0) g/dL Urine 03/19/24 Range/Units 23:12 Urine Color Yellow Urine Appearance Clear Urine pH 7.0 (5.0-9.0) Ur Specific [place] 1.010 (1.005-1.025) Urine Protein Trace (Neg-Trace) mg/dL Urine Glucose (UA) Negative (Negative) mg/dL Imaging Additional studies: Date of Service: 03/19/24 EXAMINATION: CT ABDOMEN AND PELVIS WITHOUT CONTRAST CLINICAL INFORMATION: Constipation, query impaction COMPARISON: 03/11/2024 TECHNIQUE: Multidetector volumetric imaging was performed from the superior aspect of the liver through the pubic symphysis. Sagittal and coronal reformatted images were obtained on the technologist's workstation. This CT examination was performed using dose optimization techniques as appropriate, variously including the following: *Automated exposure control *Adjustment of mA and/or kV according to patient size (this includes techniques or standardized protocols for targeted exams where dose is matched to indication/reason for exam; i.e. extremities or head) *Use of iterative reconstruction technique DLP: 554 mGy-cm FINDINGS: LUNG BASES: Unremarkable. ABDOMINAL AND PELVIC WALL: Unremarkable. LIVER AND BILIARY TREE: Unremarkable. GALLBLADDER: Unremarkable. PANCREAS: Unremarkable. SPLEEN: Unremarkable. ADRENAL GLANDS: Unremarkable. KIDNEYS AND URETERS: Benign-appearing left parapelvic cyst. GASTROINTESTINAL TRACT: Postsurgical changes related to gastric pull-through procedure and esophagectomy. Large volume stool in the rectum with some circumferential thickening of the distal rectum which may reflect early stercoral colitis. No evidence of obstruction. Colonic diverticulosis, no findings of diverticulitis. Appendix is not visualized, no inflammatory changes in the right lower quadrant to suggest appendicitis.Distal perirectal surgical clips are again noted. VASCULAR: Aortic atherosclerotic calcifications, no aneurysmal dilation. LYMPH NODES/PERITONEUM: No lymphadenopathy. FREE FLUID: None. BLADDER: Unremarkable. PELVIC VISCERA: Unremarkable. OSSEOUS STRUCTURES: Mild degenerative changes of the thoracolumbar spine. IMPRESSION: Large volume stool in the rectum with some circumferential thickening of the distal rectum which may reflect early stercoral colitis. No evidence of obstruction. Assessment and Plan (1) Acute urinary retention: Status: Acute (2) Fecal impaction: Status: Acute Plan h/o prostate cancer s/p prostatectomy urinary retention likely secondary to fecal impaction recommend voiding trial once constipaton treated Procedures Date of Service Date of Service: 03/20/24
--- NOTE | 2024-03-20 15:54 | MHC.CM.PN ---
CM MET WITH PT AND AT BEDSIDE PT LIVES AT HOME AND IS INDEPENDENT WITH CARE HE HAS NO DME AND NO SERVICES PT HAS A HCP ON FILE AND HIS PCP IS EDGARD MARCELINO OBSERVATION NOTICE DELIVERED PT STATES HE CANNOT BE ON OBS BECAUSE HIS INSURANCE WILL NOT COVER HIS STAY HE WAS INFORMED THIS WOULD BE REVIEWED THROUGHOUT HIS STAY AND HE WOULD BE UPDATED IF THE STATUS CHANGED DCP: HOME NO SERVICES VIA PRIVATE TRANSPORT
[2024-03-20] MEDS: Omeprazole 40 MG CAPSULE.DR PO (16:27)
[2024-03-20] MEDS: Gabapentin 300 MG CAPSULE 600 MG PO (20:05)
[2024-03-21 03:43] VITALS: BP 125/67; PULSE 61; RESP 18; TEMP 36; O2SAT 91
[2024-03-21] MEDS: Omeprazole 40 MG CAPSULE.DR PO (05:47)
[2024-03-21 08:00] VITALS: BP 152/76; PULSE 70; RESP 17; TEMP 36.2; O2SAT 94
--- NOTE | 2024-03-21 08:07 | P.PNGS_ITS ---
Subjective Subjective Date of Service: 03/21/24 Interval history: States that he slept well overnight States that his rectal pain/discomfort is better He does not recall passing more stools Rectal exam done yesterday - rectal vault emptied of soft stools Physical Exam 2 Vital Signs: Vital Signs: Last Vital Signs Temp 96.8 F 03/21/24 03:43 Pulse 61 03/21/24 03:43 Resp 18 03/21/24 03:43 BP 125/67 03/21/24 03:43 Pulse Ox 91 L 03/21/24 03:43 O2 Del Method Room Air 03/21/24 03:43 BMI result Body Mass Index 25.1 Const: General: comfortable and no acute distress Resp: Effort & Inspection: normal respiratory effort Cardio: Rate: regular rate GI: Palpation (GI): Soft to palpation, not firm, nontender and no guarding Objective Data Active Medications Acetaminophen (Acetaminophen 325 Mg Tablet) 650 mg PO Q6H PRN PRN Reason: Pain, Mild (Pain Scale 1-3), fever or headache Bisacodyl (Bisacodyl 5 Mg Tablet.) 10 mg PO DAILY [facility] Last Admin: 03/20/24 09:11 Dose: 10 mg Documented By: VAMSI Calcium Carbonate (Calcium Carbonate 750 Mg Tab.Chew) 750 mg PO Q4H PRN PRN Reason: Heartburn Enoxaparin Sodium (Enoxaparin Sodium 40 Mg/0.4 Ml Syringe) 40 mg SUBCUT Q24H [facility] Last Admin: 03/20/24 12:09 Dose: 40 mg Documented By: VAMSI Gabapentin (Gabapentin 300 Mg Capsule) 600 mg PO BID [facility] Last Admin: 03/20/24 20:05 Dose: 600 mg Documented By: RASHEED Magnesium Hydroxide (Milk Of Magnesia 30 Ml Oral.Susp) 30 ml PO DAILY PRN PRN Reason: Constipation Melatonin (Melatonin 3 Mg Tablet) 6 mg PO BEDTIME PRN PRN Reason: Insomnia Multivitamins/Vitamin C (Multivitamin Tablet) 1 tab PO DAILY [facility] Omeprazole (Omeprazole 40 Mg Capsule.) 40 mg PO BID@0630,1630 [facility] Last Admin: 03/21/24 05:47 Dose: 40 mg Documented By: RASHEED Ondansetron HCl (Ondansetron Hcl 4 Mg/2 Ml Vial) 4 mg IVPUSH Q8H PRN PRN Reason: Nausea and Vomiting Last Admin: 03/20/24 12:11 Dose: 4 mg Documented By: VAMSI Polyethylene Glycol (Polyethylene Glycol 3350 17 Gm Powd.Pack) 17 gm PO DAILY [facility] Last Admin: 03/20/24 09:11 Dose: 17 gm Documented By: VAMSI Senna/Docusate Sodium (Sennosides/Docusate Sodium Tablet) 2 tab PO BID [facility] Last Admin: 03/20/24 20:04 Dose: 2 tab Documented By: RASHEED Sodium Chloride (0.9 % Sodium Chloride Flush 3 Ml Syringe) 3 ml IVFLUSH QSHIFT [facility] Last Admin: 03/20/24 20:05 Dose: 3 ml Documented By: RASHEED Verapamil HCl (Verapamil Hcl Sr 240 Mg Tablet.Er) 240 mg PO DAILY [facility]; Protocol Last Admin: 03/20/24 10:36 Dose: 240 mg Documented By: VAMSI Labs 03/20/24 05:24 03/20/24 05:24 Procedures Date of Service Date of Service: 03/21/24 Progress Note: A&P Assessment and plan (1) Fecal impaction: Status: Acute Assessment and Plan: Digital exam done yesterday - rectal vault seems to have emptied, he had passed stools yesterday Rectal pain better Continue on bowel regimen Abdomen is soft and benign Looks well overall Time Spent With Patient Time: Total time managing care of this patient today ____ minutes. Quality Stroke Does the patient have a stroke diagnosis?: No VTE Prior VTE?: No VTE Risk Level:: Medical - moderate - high VTE Device Contraindication: N/A - Device Ordered VTE Drug Contraindication: Treatment Not Indicated
[2024-03-21] MEDS: polyethylene glycoL 3350 17 GM POWD.PACK PO (08:22)
[2024-03-21] MEDS: Sennosides/Docusate Sodium TABLET 2 TAB PO (08:22)
[2024-03-21] MEDS: Multivitamin TABLET 1 TAB PO (08:22)
[2024-03-21] MEDS: Gabapentin 300 MG CAPSULE 600 MG PO (08:22)
[2024-03-21] MEDS: VerapamiL HCL SR 240 MG TABLET.ER PO (08:23)
[2024-03-21] MEDS: bisacodyL 5 MG TABLET.DR 10 MG PO (08:23)
[2024-03-21] MEDS: 0.9 % Sodium Chloride Flush 3 ML SYRINGE IVFLUSH (08:26)
--- NOTE | 2024-03-21 11:33 | P.DS_ITS ---
DS: Providers Provider Date of Service: 03/21/24 Date of admission: 03/19/24 23:38 Date of discharge: 03/21/24 Primary care physician: Matthew Hirsch DO Consults: 03/19/24 23:22 Consult to General Surgery Stat Consulting Provider: [facility] General Surgeons Reason for consultation: fecal impaction Has provider been notified: No 03/20/24 00:52 Consult to Urology Routine Consulting Provider: [facility] Urology Services Reason for consultation: urinary retention DS: Diagnosis Discharge Diagnosis (1) Fecal impaction: Status: Acute (2) Acute urinary retention: Status: Acute (3) Stercoral colitis: Status: Acute DS: Summary Hospital Course Hospital Course: From the history and physical by the admitting hospitalist, Bruno Engle MD, 03/19/24: This is a 78-year-old male with pertinent history of esophageal cancer status post distal esophagectomy with gastric pull-through in 2008, history of prostate cancer, history of recent hospitalization due to SBO, peripheral neuropathy, gastroesophageal reflux disease who presents to the emergency department for evaluation of constipation. Patient was recently admitted with small-bowel obstruction and discharged on 03/13. Patient states he only took clear liquids for the 1st 2 days. He started having solid from the 3rd day after discharge. Patient states his last bowel movement was 5 days prior to presentation. He is able to pass gas. No nausea or vomiting. No fever, chills, chest discomfort, palpitations, shortness of breath. Does endorse generalized abdominal discomfort which is intermittent and nonradiating. Also has been having urinary hesitancy. In the emergency department, General surgery was consulted who requested admiss ion by medicine team. Patient was given enema in the ER. Imaging with stercoral colitis. Bladder scan with high postvoid residual and Dia catheter was inserted in the ER. 78yo M with hx esophageal CA s/p esophagectomy + gastric pull-through, hx prostate CA, recent hospitalization for SBO. Presenting with no BM x5d, admitted for constipation with stercoral colitis. Admitted to the medical- surgical unit with Surgery and Urology consultation. With Miralax, Dulcolax, and Senokot, he was able to void and tolerate solid diet. Urinary retention resolved and Dia was removed; he voided successfully. He was discharged home and should follow up with Primary Care in 1 week and Surgery in 2 weeks. Time Attestation Discharge Coordination Time (in mins): 35 Quality: Safe Use of Opioids Does Pt have an Active Cancer Diagnosis on the Problem List?: No Quality: Stroke Does the patient have a stroke diagnosis?: No Physical Exam Vital Signs: Vital Signs: Last Vital Signs Temp 97.1 F 03/21/24 08:00 Pulse 70 03/21/24 08:00 Resp 17 03/21/24 08:00 BP 152/76 H 03/21/24 08:00 Pulse Ox 94 03/21/24 08:00 O2 Del Method Room Air 03/21/24 08:00 BMI result Body Mass Index 25.1 Gen: in no acute distress HEENT: sclera anicteric, moist mucus membranes Neck: supple Lungs: clear to auscultation bilaterally Heart: regular rate and rhythm, no murmurs Abd: soft, non-tender, non-distended Ext: no edema Skin: warm/well-perfused Neuro: alert and oriented x3, no focal findings Psych: appropriate affect DS: Data Data Completed and Pending Completed studies during hospitalization [Text1]: Laboratory Results WBC 8.1 X10*3/uL (4.8-10.8) 03/20/24 05:24 RBC 4.67 X10*6/uL (4.60-5.80) 03/20/24 05:24 Hgb 13.4 g/dl (14.0-18.0) L 03/20/24 05:24 Hct 40.5 % (42.0-52.0) L 03/20/24 05:24 MCV 86.7 fL (80.0-98.0) 03/20/24 05:24 MCH 28.7 pg (27.0-33.0) 03/20/24 05:24 MCHC 33.1 g/dl (31.0-36.0) 03/20/24 05:24 RDW 13.8 % (11.0-16.0) 03/20/24 05:24 Plt Count 221 X10*3/uL (160-400) 03/20/24 05:24 MPV 11.3 fL (9.4-12.4) 03/20/24 05:24 Immature Gran % (Auto) 0.2 % (0.0-0.4) 08/11/24 05:24 Neut % (Auto) 68.2 % (45-73) 03/20/24 05:24 Lymph % (Auto) 17.5 % (20-40) L 03/20/24 05:24 [place] % (Auto) 12.4 % (2-11) H 03/20/24 05:24 Eos % (Auto) 1.5 % (0-4) 03/20/24 05:24 Baso % (Auto) 0.2 % (0-2) 03/20/24 05:24 Lymph # (Auto) 1.4 X10*3/uL (1.2-4.9) 03/20/24 05:24 [place] # (Auto) 1.0 X10*3/uL (0.1-1.2) 03/20/24 05:24 Eos # (Auto) 0.1 X10*3/uL (0.0-0.4) 03/20/24 05:24 Baso # (Auto) 0.0 X10*3/uL (0.0-0.2) 03/20/24 05:24 Abs Immat Gran (auto) 0.02 X10*3/uL (0.00-0.03) 03/20/24 05:24 Absolute Neuts (auto) 5.5 x10*3/uL (2.0-8.3) 03/20/24 05:24 Absolute Nucleated RBC 0.000 X10*3/uL (0.0-0.012) 03/20/24 05:24 Nucleated RBC % (auto) 0.0 /100WBC (0.0-0.2) 03/20/24 05:24 Sodium 141 mmol/L (135-145) 03/20/24 05:24 Potassium 3.7 mmol/L (3.3-5.1) 03/20/24 05:24 Chloride 109 mmol/L (96-108) H 03/20/24 05:24 Carbon Dioxide 25 mmol/L (22-29) 03/20/24 05:24 Anion Gap 11 (12-20) L 03/20/24 05:24 BUN 10 mg/dL (9-16) 03/20/24 05:24 Creatinine 0.89 mg/dL (0.5-1.4) 03/20/24 05:24 Estim Creat Clear Calc 64.0 03/20/24 05:24 Estimated GFR > 60 03/20/24 05:24 Random Glucose 90 mg/dL (60-115) 03/20/24 05:24 Calcium 9.0 mg/dL (8.4-10.2) 03/20/24 05:24 Magnesium 2.2 mg/dL (1.6-2.6) 03/19/24 17:19 Total Bilirubin 0.3 mg/dL (0.0-1.0) 03/19/24 17:19 Direct Bilirubin 0.1 mg/dL (0.0-0.5) 03/19/24 17:19 AST 20 U/L (5-37) 03/19/24 17:19 ALT 14 U/L (0-40) 03/19/24 17:19 Alkaline Phosphatase 90 U/L (39-117) 03/19/24 17:19 Total Protein 6.8 g/dL (6.5-8.0) 03/19/24 17:19 Albumin 3.8 g/dL (3.5-5.0) 03/19/24 17:19 Lipase 28 U/L (8-78) 03/19/24 17:19 Urine Color Yellow 03/19/24 23:12 Urine Appearance Clear 03/19/24 23:12 Urine pH 7.0 (5.0-9.0) 03/19/24 23:12 Ur Specific [place] 1.010 (1.005-1.025) 03/19/24 23:12 Urine Protein Trace mg/dL (Neg-Trace) 03/19/24 23:12 Urine Glucose (UA) Negative mg/dL (Negative) 03/19/24 23:12 Urine Ketones Negative mg/dL (Negative) 03/19/24 23:12 Urine Blood Negative (Negative) 03/19/24 23:12 Urine Nitrite Negative (Negative) 03/19/24 23:12 Ur Leukocyte Esterase Trace (Negative) H 03/19/24 23:12 Urine RBC 0-2 /HPF (0-2) 03/19/24 23:12 Urine WBC 0-5 /HPF (0-5) 03/19/24 23:12 Ur Squamous Epith Cells 0-2 /HPF (0-2) 03/19/24 23:12 Urine Bacteria None Seen (None Seen) 03/19/24 23:12 Hyaline Casts 0-2 /LPF (0-2) 03/19/24 23:12 Impressions Abdomen/Pelvis CT 03/19/24 21:56 IMPRESSION: Large volume stool in the rectum with some circumferential thickening of the distal rectum which may reflect early stercoral colitis. No evidence of obstruction. Discharge Plan Discharge Anticipated Discharge Date/Time: 03/21/24 15:31 Patient Disposition: Home, Self-Care Discharge Diagnosis: urinary retention and constipation Referrals: Matthew Hirsch DO [Primary Care Provider] - 1 Week Wai Cueva MD [Physician] - 2 Weeks Discharge Medications: New polyethylene glycol 3350 17 gram Powder In Packet 17 g PO DAILY Qty: 30 0RF sennosides-docusate sodium [Senna Plus] 8.6-50 mg Tablet 2 tab PO BID Qty: 120 0RF bisacodyl 5 mg Tablet,Delayed Release (Dr/Ec) 10 mg PO DAILY Qty: 30 0RF Continued Allergy Relief (cetirizine) 10 mg Capsule 10 mg PO DAILY omeprazole 40 mg Capsule,Delayed Release(Dr/Ec) 40 mg PO BID@0630,1630 gabapentin 300 mg capsule 600 mg PO BID verapamil 240 mg capsule,ext rel. pellets 24 hr 240 mg PO DAILY Centrum Adult 50 Plus 80 mcg Tablet,Chewable 1 tab PO DAILY Discharge Orders: Discharge Order (Routine); Ordered 03/21/24 Ordered By: Gamaliel Gilbert Diet: Advance to usual diet Activity on Discharge: As tolerated Stand Alone Forms: Patient Portal Discharge page Print Language: Belarusian Care Plan Goals: normal bowel + bladder function Health Concerns: urinary retention and constipation Plan of Treatment: take stool softeners as prescribed; drink plenty of water; follow up with surgery at [facility] in 2 weeks Please follow up with your primary care doctor within 1 week. Return to the hospital if you experience recurrent or worsening symptoms. Assessment: See Discharge Summary.
[2024-03-21] MEDS: Enoxaparin Sodium 40 MG/0.4 ML SYRINGE SUBCUT (11:35)
[2024-03-21 12:00] VITALS: BP 122/66; PULSE 70; RESP 18; TEMP 36.2; O2SAT 92
--- NOTE | 2024-03-21 14:39 | MHC.CM.PN ---
PT WILL DC HOME TODAY WITH NO SERVICES VIA FAMILY TRANSPORT
--- NOTE | 2024-03-21 14:57 | MHC.CM.PN ---
pt dcd home self care
== END 2024-03-21 15:33 | disposition home or self-care (01) ==
LOC: HO.ED 23:25 → HO.EDOVER 23:48 → HO.S3 03-20 00:35
PROVIDERS: Physician Assistant; Admitting Provider Student in an Organized Health Care Education/Training Program; Emergency Provider Emergency Medicine Emergency Medical Services; PCP Internal Medicine; Visit Provider Family Medicine
DX: K56.41 Fecal impaction (principal); R33.8 Other retention of urine; G62.0 Drug-induced polyneuropathy; T45.1X5A Adverse effect of antineoplastic and immunosuppressive drugs, initial encounter; Y92.9 Unspecified place or not applicable; K52.89 Other specified noninfective gastroenteritis and colitis; I10 Essential (primary) hypertension; E78.00 Pure hypercholesterolemia, unspecified; K21.9 Gastro-esophageal reflux disease without esophagitis; Z85.46 Personal history of malignant neoplasm of prostate; Z90.79 Acquired absence of other genital organ(s); Z79.899 Other long term (current) drug therapy; Z85.01 Personal history of malignant neoplasm of esophagus
CPT/HCPCS: 36415; 74176; 80048; 80076; 81001; 83690; 83735; 85025; 96372; 96374; 99221; 99285; C1758; J1650; J2405

== ENCOUNTER → 2024-03-19 23:38 | Outpatient (BNV) | payer MEDICARE, SELFPAY | PROVIDERS: Admitting Provider Student in an Organized Health Care Education/Training Program; Emergency Provider Emergency Medicine Emergency Medical Services; PCP Internal Medicine; Visit Provider Urology | DX: R33.8 Other retention of urine (principal); K56.41 Fecal impaction | CPT/HCPCS: 99222 ==

== ENCOUNTER → 2024-03-19 23:38 | Outpatient (BNV) | payer MEDICARE, SELFPAY | PROVIDERS: Admitting Provider Student in an Organized Health Care Education/Training Program; Emergency Provider Emergency Medicine Emergency Medical Services; PCP Internal Medicine; Visit Provider Student in an Organized Health Care Education/Training Program | DX: K56.41 Fecal impaction (principal); R33.8 Other retention of urine; K52.89 Other specified noninfective gastroenteritis and colitis | CPT/HCPCS: 99222; 99232; 99239 ==

== ENCOUNTER → 2024-03-19 23:38 | Outpatient (BNV) | payer MEDICARE, SELFPAY | PROVIDERS: Admitting Provider Student in an Organized Health Care Education/Training Program; Emergency Provider Emergency Medicine Emergency Medical Services; PCP Internal Medicine; Visit Provider Surgery | DX: K56.41 Fecal impaction (principal) | CPT/HCPCS: 99222; 99232 ==

== ENCOUNTER 2024-03-25 10:27 | Outpatient (AMB) | payer MEDICARE, SELFPAY ==
--- NOTE | 2024-03-25 10:29 | MHC.OFFVIS ---
Vital Signs 03/25/24 10:39 Height 5 ft 8 in Weight 162 lb BMI 24.6 BP 122/75 Blood Pressure Location Lt brachial Position Sitting Pulse 88 Intake Visit Reasons: intestinal blockage Intake Note: Patient is seen in office for ER follow up visit, following on intestinal blockage. 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 He is now on regime which is causing frequent loose stools. He is uncertain if she should cut back on some of his medications. His appetite is reduced but he is eating daily. He denies significant abdominal pain at this time. 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 GERD (gastroesophageal reflux disease) Constipation Throat mass Mass of right side of neck Personal history of nicotine dependence History of prostate cancer (~2004) History of small bowel obstruction (~2019) Shingles Vitamin B12 deficiency Diverticulosis (~1998) Osteoarthritis Basal cell carcinoma, scalp/neck Cervical spondylosis Hypercholesterolemia Hypertension Melanoma Esophageal adenocarcinoma (~2017) Surgical History History of hemorrhoidectomy (~1993) History of esophagogastroduodenoscopy (EGD) History of colonoscopy History of meniscectomy of right knee (~2003) History of esophagectomy (~2018) History of jejunostomy tube placement (~2018) History of incisional hernia repair (~2019) History of appendectomy History of prostatectomy (~2004) Family History Son Non-Hodgkin lymphoma Father Prostate cancer Mother No problems noted. Social History Household Members: Spouse Housing: Condominium Are you a primary long term acute care registered nurse to a significant other at home: No Do you presently have visiting nurse or other home services: No Alcohol intake: former Patient Tobacco Use Status: Former Tobacco user Years Smoked: 35 Second Hand Smoke Exposure: No Advance Directives Date on File: 12/04/21 service: Yes Current occupational status: retired Current occupation: rt handed Review of Systems Const All systems reviewed & are unremarkable except as noted in HPI and below ENT Reports dysphagia GI Denies constipation, Reports dysphagia, Reports diarrhea and Denies hematemesis Denies urinary hesitancy Physical Exam Vital Signs: Last Vital Signs Pulse 88 03/25/24 10:39 BP 122/75 03/25/24 10:39 BMI result Body Mass Index 24.6 Const General: no acute distress Nutritional Appearance: thin Orientation/consciousness: patient oriented x3 Limitations: no limitations Resp Other: hoarse voice, no respiratory distress GI Palpation (GI): Soft to palpation, nontender, no guarding and not rigid Percussion: Yes normal to percussion Auscultation: normal bowel sounds Skin General skin exam: no rashes or lesions noted Neuro General: patient oriented x3 Extrem General: Yes no clubbing, cyanosis or edema Assessment & Plan Assessment & Plan (1) Small bowel obstruction: Comment: Resolved Code(s): K56.609 - Unspecified intestinal obstruction, unspecified as to partial versus complete obstruction Category: Medical Plan The patient overall is much improved with his current regime of stool softeners. I suggested he slowly back off on the medications over the next several weeks to allow his body to catch up. He expressed understanding and agrees with the plan. Coding Level of Care Code Est Pt Level 3 (87297) Diagnoses Small bowel obstruction K56.609
[2024-03-25 10:39] VITALS: BP 122/75; PULSE 88; BMI 24.6
== END 2024-03-25 10:52 | disposition home or self-care (01) ==
PROVIDERS: PCP Internal Medicine; Visit Provider Surgery
DX: K56.609 Unspecified intestinal obstruction, unspecified as to partial versus complete obstruction (principal)
CPT/HCPCS: 99213

== ENCOUNTER → 2024-03-25 10:27 | Outpatient (BNVA) | payer MEDICARE, SELFPAY | PROVIDERS: PCP Internal Medicine; Visit Provider Surgery | DX: K56.609 Unspecified intestinal obstruction, unspecified as to partial versus complete obstruction (principal); R19.7 Diarrhea, unspecified | CPT/HCPCS: 99212 ==

== ENCOUNTER 2024-04-13 15:15 | Outpatient (AMB) | payer MEDICARE, SELFPAY ==
--- NOTE | 2024-04-13 15:38 | MHC.OFFVIS ---
Vital Signs 04/13/24 15:43 Height 5 ft 8 in Weight 160 lb BMI 24.3 Intake Visit Reasons: s/p Fecal impaction, Small bowel obstruction Intake Note: This patient presents for a follow-up assessment for small bowel obstruction. Pt c/o; reports his stools are soft, reports good appetite. Administrative Fellow Required: No Accompanied by: Self / Same As Patient Allergies No Known Allergies [No Known Allergies*] Allergy (Verified 04/13/24 15:45) Medication List - Last Reconciled 04/13/24 by Wai Cueva MD bisacodyl 10 mg (2 x 5 mg) PO DAILY cetirizine (Allergy Relief (cetirizine)) 10 mg PO DAILY gabapentin 600 mg PO BID multivit with min-folic acid 80 mcg (Centrum Adult 50 Plus) 1 tab PO DAILY omeprazole 40 mg PO BID@0630,1630 polyethylene glycol 3350 17 grams PO DAILY sennosides-docusate sodium 8.6-50 mg (Senna Plus) 2 tabs PO BID verapamil ER 240 mg PO DAILY HPI HPI s/p Fecal impaction, Small bowel obstruction: Details: He is here for follow-up for his history of small-bowel obstruction and constipation with fecal impaction. He had been admitted to the hospital by Dr. Gregory last 03/11/2024 for. partial small-bowel obstruction. This was deemed to be likely secondary to his postop adhesions from his previous surgeries. He says he currently is doing well. He has had good bowel movements. He says that his stools have been soft. He is passing flatus. He has good oral intake. He denies any abdominal pain. 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 GERD (gastroesophageal reflux disease) Constipation Throat mass Mass of right side of neck Personal history of nicotine dependence History of prostate cancer (~2004) History of small bowel obstruction (~2019) Shingles Vitamin B12 deficiency Diverticulosis (~1998) Osteoarthritis Basal cell carcinoma, scalp/neck Cervical spondylosis Hypercholesterolemia Hypertension Melanoma Esophageal adenocarcinoma (~2017) Surgical History History of hemorrhoidectomy (~1993) History of esophagogastroduodenoscopy (EGD) History of colonoscopy History of meniscectomy of right knee (~2003) History of esophagectomy (~2018) History of jejunostomy tube placement (~2018) History of incisional hernia repair (~2019) History of appendectomy History of prostatectomy (~2004) Family History Son Non-Hodgkin lymphoma Father Prostate cancer Mother No problems noted. Social History Household Members: [facility] Are you a primary patient care manager to a significant other at home: No Do you presently have visiting nurse or other home services: No Alcohol intake: former Patient Tobacco Use Status: Former Tobacco user Years Smoked: 35 Second Hand Smoke Exposure: No Advance Directives Date on File: 12/04/21 service: Yes Current occupational status: retired Current occupation: rt handed Review of Systems Const Denies chills and Denies fever(s) Card Denies chest pain Resp Denies cough GI Denies abdominal pain and Denies constipation Denies difficulty urinating Physical Exam Vital Signs: BMI result Body Mass Index 24.3 Const Other: Looks well General: comfortable and no acute distress Resp Effort & Inspection: normal respiratory effort Cardio Rate: regular rate GI Palpation (GI): Soft to palpation, not firm, nontender and no guarding Assessment & Plan Assessment & Plan (1) Small bowel obstruction: Code(s): K56.609 - Unspecified intestinal obstruction, unspecified as to partial versus complete obstruction Category: Medical Plan: He has a history of small-bowel obstruction. He currently doing well. He denies any abdominal pain. Has good oral intake. He has good flatus and BMs He abdomen is soft and benign He does understand that there was always the possibility of recurrences with regards to his episodes of small-bowel obstruction in view of his previous abdominal surgeries He can otherwise follow up with us on a p.r.n. basis. Coding Level of Care Code Est Pt Level 2 (55383) Diagnoses Small bowel obstruction K56.609
[2024-04-13 15:43] VITALS: BMI 24.3
== END 2024-04-13 16:00 ==
PROVIDERS: PCP Internal Medicine; Visit Provider Surgery
DX: K56.609 Unspecified intestinal obstruction, unspecified as to partial versus complete obstruction (principal)
CPT/HCPCS: 99212

== ENCOUNTER → 2024-04-13 15:15 | Outpatient (BNVA) | payer MEDICARE, SELFPAY | PROVIDERS: PCP Internal Medicine; Visit Provider Surgery | DX: K56.609 Unspecified intestinal obstruction, unspecified as to partial versus complete obstruction (principal) | CPT/HCPCS: 99212 ==

== ENCOUNTER 2024-05-25 10:57 | Inpatient (IN) | payer MEDICARE, SELFPAY ==
[2024-05-25] VITALS (11 sets, daily range): BP systolic 108–168; BP diastolic 51–96; PULSE 81–130; RESP 12–19; TEMP 36.2–38.8; O2SAT 84–96; BMI 23.7; BMI 24.8
--- NOTE | ~2024-05-25 | CT_ITS ---
EXAMINATION: CT ABDOMEN AND PELVIS WITHOUT CONTRAST CLINICAL INFORMATION: vomiting COMPARISON: CT abdomen/pelvis 03/19/2024 TECHNIQUE: Multidetector volumetric imaging was performed from the superior aspect of the liver through the pubic symphysis. Sagittal and coronal reformatted images were obtained on the technologist's workstation. This CT examination was performed using dose optimization techniques as appropriate, variously including the following: *Automated exposure control *Adjustment of mA and/or kV according to patient size (this includes techniques or standardized protocols for targeted exams where dose is matched to indication/reason for exam; i.e. extremities or head) *Use of iterative reconstruction technique DLP: 553 mGy-cm FINDINGS: LUNG BASES: Bilateral lower lobe peribronchial thickening and bronchiectasis with ill-defined groundglass opacities. LIVER, GALLBLADDER, AND BILIARY TREE: The liver is normal in size, shape, and attenuation. No focal hepatic lesion or biliary ductal dilatation is present. The gallbladder is unremarkable with no evidence of radiopaque gallstones, gallbladder wall thickening, or obvious pericholecystic inflammatory changes. PANCREAS: Unremarkable. SPLEEN: Unremarkable. ADRENAL GLANDS: Unremarkable. KIDNEYS AND URETERS: Small left greater than right perinephric cysts. The kidneys are normal in size, shape, and attenuation. No hydronephrosis, hydroureter, or calculi seen. No perinephric stranding. BLADDER: The bladder is distended without focal wall thickening or bladder calcified. GASTROINTESTINAL TRACT: Status post esophagectomy and gastric pull-through with stable postoperative changes. The small and large bowel are nondilated. Mild scattered colonic diverticulosis evidence of acute diverticulitis. Although the appendix is not visualized, there is no right lower quadrant stranding to suggest acute appendicitis. ABDOMINAL WALL: No significant hernia is appreciated. Ventral abdominal hernia repair mesh again noted. LYMPH NODES: Normal. VASCULAR: The aorta is nonaneurysmal. Moderate scattered atheromatous calcifications. PELVIC VISCERA: Status post prostatectomy. OSSEOUS STRUCTURES: No acute or suspicious osseous abnormality. Moderate multilevel thoracolumbar spondylosis. Mild multilevel thoracolumbar degenerative disc disease. L5 limbus vertebra again noted. CT/CT abdomen pelvis wo IV con IMPRESSION: 1. No acute abnormality within the abdomen or pelvis. 2. Bilateral lower lobe peribronchial thickening and bronchiectasis with ill-defined groundglass opacities. Findings may represent aspiration pneumonitis versus infectious etiology. 3. Stable postoperative changes status post esophagectomy and gastric pull-through. Fleischner guidelines were followed. Electronically signed by: Barbara Jeter DO 05/25/2024 03:13 PM EDT RP
--- NOTE | ~2024-05-25 | XR_ITS ---
EXAMINATION: XR CHEST CLINICAL INFORMATION: Cough. Difficulty breathing COMPARISON: CT chest dated 01/01/2024 TECHNIQUE: Frontal view of the chest was obtained. FINDINGS: Points. At with slight elevation of the left hemidiaphragm and atelectasis at the left base. Right lung is grossly clear as is the left mid and upper lung. Gastric pull-through noted. Heart size normal. Pulmonary vessels are normal caliber. There is a right-sided port with its tip in the SVC. XR/XR chest 1V IMPRESSION: No active disease. Electronically signed by: Armando Love MD 05/25/2024 02:13 PM EDT
--- NOTE | 2024-05-25 11:14 | ECG_ITS ---
Test Reason : N/V Blood Pressure : / mmHG Vent. Rate : 119 BPM Atrial Rate : 119 BPM P-R Int : 138 ms QRS Dur : 122 ms QT Int : 334 ms P-R-T Axes : 000 220 174 degrees QTc Int : 469 ms Sinus tachycardia Right bundle branch block Abnormal ECG When compared with ECG of 01-JAN-2024 12:16, Vent. rate has increased BY 53 BPM T wave inversion now evident in Lateral leads Referred By: José Oglesby Electronically Signed By:ENIO VALENTINE
--- NOTE | 2024-05-25 11:18 | ED.NAVMDI ---
HPI - Nausea/Vomiting/Diarrhea General Chief complaint: Nausea/Vomiting/Diarrhea Stated complaint: VOMITING BILE SINCE 2AM PER EMS Time Seen by Provider: 05/25/24 11:11 Source: patient Mode of arrival: EMS History of Present Illness HPI Narrative: This is 78 years old male with history of esophageal adenocarcinoma status post distal esophagectomy, history of prostate cancer, presented to emergency department complaining of nausea vomiting chills and fever. Symptoms started this morning. Denies any diarrhea. MD elicited complaint: nausea and vomiting Onset (ago): hour(s) (6) Description of vomiting: watery and bilious Associated abdominal pain: No Quality: cramping Exacerbating factors: none Relieving factors: none Related Data Home Medications ?Medication ?Instructions ?Recorded ?Confirmed cetirizine 10 mg capsule (Allergy 10 mg PO DAILY 05/23/20 04/15/24 Relief (cetirizine)) verapamil 240 mg 24 hr 240 mg PO DAILY 11/27/21 04/15/24 capsule,extended release omeprazole 40 mg capsule,delayed 40 mg PO BID@0630,1630 06/05/23 04/15/24 release gabapentin 300 mg capsule 600 mg PO BID 11/18/23 04/15/24 multivitamin with minerals-folic 1 tab PO DAILY 03/11/24 04/15/24 acid 80 mcg chewable tablet (Centrum Adult 50 Plus) Previous Rx's ?Medication ?Instructions ?Recorded bisacodyl 5 mg tablet,delayed 10 mg (2 x 5 mg) PO DAILY #30 tabs 03/21/24 release polyethylene glycol 3350 17 gram 17 g PO DAILY #30 ea 03/21/24 oral powder packet sennosides 8.6 mg-docusate sodium 2 tab PO BID #120 tabs 03/21/24 50 mg tablet (Senna Plus) Allergies Allergy/AdvReac Type Severity Reaction Status Date / Time No Known Allergies Allergy Verified 05/25/24 11:11 [No Known Allergies*] Review of Systems Constitutional: Constitutional: Reports no additional constitutional complaints ENT: Reports system reviewed and no additional complaints, except as documented Gastrointestinal: Gastrointestinal: Reports no additional gastrointestinal complaints PMFSH Past Medical History Medical History Small bowel obstruction 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 GERD (gastroesophageal reflux disease) Constipation Throat mass Mass of right side of neck Personal history of nicotine dependence History of prostate cancer (~2004) History of small bowel obstruction (~2019) Shingles Vitamin B12 deficiency Diverticulosis (~1998) Osteoarthritis Basal cell carcinoma, scalp/neck Cervical spondylosis Hypercholesterolemia Hypertension Melanoma Esophageal adenocarcinoma (~2017) Surgical History History of hemorrhoidectomy (~1993) History of esophagogastroduodenoscopy (EGD) History of colonoscopy History of meniscectomy of right knee (~2003) History of esophagectomy (~2018) History of jejunostomy tube placement (~2018) History of incisional hernia repair (~2019) History of appendectomy History of prostatectomy (~2004) Family History Family History Son Non-Hodgkin lymphoma Father Prostate cancer Mother No problems noted. Social History Social History Household Members: [facility] Are you a primary morning caregiver to a significant other at home: No Do you presently have visiting nurse or other home services: No Alcohol intake: former Patient Tobacco Use Status: Former Tobacco user Years Smoked: 35 Smoked in Last 30 Days: No Second Hand Smoke Exposure: No Use of substances other than those prescribed or required for medical reasons: No Advance Directives: Yes Advance Directives on File: Yes Advance Directives Date on File: 12/04/21 service: Yes Current occupational status: retired Current occupation: rt handed Physical Exam Vital Signs: Vital Signs: Last Vital Signs Temp 98.8 F 05/25/24 13:14 Pulse 107 H 05/25/24 13:46 Resp 16 05/25/24 13:14 BP 108/59 L 05/25/24 13:46 Pulse Ox 95 05/25/24 13:46 O2 Del Method Nasal Cannula 05/25/24 13:46 O2 Flow Rate 3 05/25/24 13:14 BMI result Body Mass Index 23.7 Const: General: cooperative and no acute distress Nutritional Appearance: well nourished Orientation/consciousness: patient oriented x3 Limitations: no limitations HEENT: Head: Yes normal to inspection Face and sinus: Yes normal facial exam Neck: Neck: Yes normal visual inspection and Yes full ROM Chest: Chest palpation & inspection: normal inspection of the chest Resp: Effort & Inspection: normal respiratory effort Auscultation: clear to auscultation bilaterally Cardio: Jugular venous distension: no JVD Rate: regular rate Rhythm: regular rhythm GI: Inspection: Yes normal to inspection Palpation (GI): Soft to palpation, not firm and nontender Skin: General skin exam: no rashes or lesions noted and elasticity normal Lesions: no lesions Rashes: no rashes Neuro: General: patient oriented x3 Course Reevaluation(s) Reevaluation #1: doing better on reexam awake alert good capillary refill,good perusion Time: 15:34 Medications Administered Generic Name Dose Route Start Last Admin Trade Name Freq PRN Reason Stop Dose Admin Vancomycin HCl 1,000 mg/ 270 mls @ 270 mls/hr 05/25/24 15:24 05/25/24 15:51 Sodium Chloride IV 05/25/24 16:23 270 mls/hr PREOP ONE Administration Discontinued Medications Generic Name Dose Route Start Last Admin Trade Name Freq PRN Reason Stop Dose Admin Acetaminophen 975 mg 05/25/24 11:45 05/25/24 11:48 Acetaminophen 325 Mg Tablet PO 05/25/24 11:46 975 mg ONCE ONE Administration Sodium Chloride 2,124 mls @ 2,124 mls/hr 05/25/24 11:16 05/25/24 13:13 Ns 30 ml/kg infuse over 1 hr (2124 ml) 05/25/24 12:15 Infused IV Infusion .Q1H STA Piperacillin Sod/Tazobactam 50 mls @ 100 mls/hr 05/25/24 11:34 05/25/24 12:47 Sod 3.375 gm/ Sodium Chloride IV 05/25/24 12:03 Infused ONCE ONE Infusion Ondansetron HCl 4 mg 05/25/24 11:17 05/25/24 11:51 Ondansetron Hcl 4 Mg/2 Ml Vial IVPUSH 05/25/24 11:18 4 mg ONCE ONE Administration Medical Decision Making Medical Decision Making [facility] Narrative: Patient presented with nausea vomiting and fever will check labs administer fluid antiemetic Differential Diagnosis Differential Diagnoses: The differential diagnosis associated with the presentation includes Small bowel obstruction/gastroenteritis/sepsis Admission/Observation Consideration of admission/observation: Escalation of care including admission/observation considered Lab Data [facility] Lab Attestation statement: I reviewed the patient's lab results. 05/25/24 12:03 05/25/24 12:03 Labs: Lab Results 05/25/24 05/25/24 05/25/24 Range/Units 12:03 12:48 15:03 WBC 12.6 H (4.8-10.8) X10*3/uL RBC 5.09 (4.60-5.80) X10*6/uL Hgb 14.6 (14.0-18.0) g/dl Hct 44.9 (42.0-52.0) % MCV 88.2 (80.0-98.0) fL MCH 28.7 (27.0-33.0) pg MCHC 32.5 (31.0-36.0) g/dl RDW 14.2 (11.0-16.0) % Plt Count 188 (160-400) X10*3/uL MPV 10.8 (9.4-12.4) fL Immature Gran % (Auto) 0.6 H (0.0-0.4) % Neut % (Auto) 88.1 H (45-73) % Lymph % (Auto) 4.2 L (20-40) % Reagan % (Auto) 6.8 (2-11) % Eos % (Auto) 0.0 (0-4) % Baso % (Auto) 0.3 (0-2) % Lymph # (Auto) 0.5 L (1.2-4.9) X10*3/uL Reagan # (Auto) 0.9 (0.1-1.2) X10*3/uL Eos # (Auto) 0.0 (0.0-0.4) X10*3/uL Baso # (Auto) 0.0 (0.0-0.2) X10*3/uL Abs Immat Gran (auto) 0.08 H (0.00-0.03) X10*3/uL Absolute Neuts (auto) 11.1 H (2.0-8.3) x10*3/uL Absolute Nucleated RBC 0.000 (0.0-0.012) X10*3/uL Nucleated RBC % (auto) 0.0 (0.0-0.2) /100WBC PT 11.8 (10.9-12.4) SEC INR 1.0 (0.9-1.1) Sodium 141 (135-145) mmol/L Potassium 4.2 (3.3-5.1) mmol/L Chloride 110 H (96-108) mmol/L Carbon Dioxide 22 (22-29) mmol/L Anion Gap 13 (12-20) BUN 9 (9-16) mg/dL Creatinine 0.94 (0.5-1.4) mg/dL Estim Creat Clear Calc 60.6 Estimated GFR > 60 Random Glucose 110 (60-115) mg/dL Lactic Acid 3.1 H* (0.5-2.0) mmol/L Lactic Acid F/U @ 2Hr 1.3 (0.5-2.0) mmol/L Calcium 9.2 (8.4-10.2) mg/dL Total Bilirubin 0.4 (0.0-1.0) mg/dL AST 23 (5-37) U/L ALT 14 (0-40) U/L Alkaline Phosphatase 94 (39-117) U/L Troponin I High Sens 2.8 (<3.5-35.0) ng/L Total Protein 6.7 (6.5-8.0) g/dL Albumin 3.7 (3.5-5.0) g/dL Urine Color Yellow Urine Appearance Clear Urine pH 7.0 (5.0-9.0) Ur Specific [place] 1.015 (1.005-1.025) Urine Protein Negative (Neg-Trace) mg/dL Urine Glucose (UA) Negative (Negative) mg/dL Urine Ketones Negative (Negative) mg/dL Urine Blood Negative (Negative) Urine Nitrite Negative (Negative) Ur Leukocyte Esterase Negative (Negative) Urine RBC 0-2 (0-2) /HPF Urine WBC 0-5 (0-5) /HPF Ur Squamous Epith Cells 0-2 (0-2) /HPF Urine Bacteria None Seen (None Seen) Hyaline Casts 0-2 (0-2) /LPF Independent Interpretation I performed an independent interpretation of an: Plain X-Ray Interpretation: CXR read by me as NAD Radiology Impression Discussion of test interpretation with radiology: I have reviewed the radiologist's reading. Independent Historian Clinical information obtained from an independent historian. History obtained from or confirmed by: EMS External Record Review External record reviewed: Inpatient record and Office record Chronic Conditions Patient?s care impacted by: Cancer Critical Care Time Critical Care Time Critical Care Time: Yes Total Critical Care Time: 60 Attestation: IV antibiotic,fluids for sepsis Discharge Plan Discharge Clinical Impression: Hypoxia, Acidosis, lactic Fever Qualifiers: Fever type: unspecified Qualified Code(s): R50.9 - Fever, unspecified Vomiting Qualifiers: Vomiting type: unspecified Nausea presence: with nausea Qualified Code(s): R11.2 - Nausea with vomiting, unspecified Patient Disposition: Admitted As Inpatient
[2024-05-25] MEDS: SODIUM CHLORIDE 2124 ML IV (11:28)
--- NOTE | 2024-05-25 11:35 | PC.NURSE ---
Pt BIBA from home, reports N/V and burning in throat since 2Am this morning, also reports rigors and feeling cold. EMS placed 20G in LAC and gave 4 mg of Zofran. Pt is alert and oriented, breathing even and unlabored but found to be 84% on RA, improves quickly to 94% on 4L O2. Skin hot, rectal temp 102. MD notified and sepsis alert called. Sinus tach on bedside personnel monitor, BP stable. Denies CP or SOB.
--- NOTE | 2024-05-25 11:37 | PC.NURSE ---
Pt hard stick, multiple attempts. Pt taken to CT
[2024-05-25] MEDS: Acetaminophen 325 MG TABLET 975 MG PO (11:48)
[2024-05-25] MEDS: ondansetron HCL 4 MG/2 ML VIAL IVPUSH (11:51)
--- NOTE | 2024-05-25 11:57 | PC.NURSE ---
Pt continues to be hard stick, two techs attempting at this time.
[2024-05-25] MEDS: Piperacillin Sodium/Tazobactam 3.375 GM in 0.9 % Sodium Chloride 50 ML IV (12:03)
[2024-05-25 12:08] LABS: MANUAL DIFF FLAG NO
[2024-05-25 12:14] LABS: Basophils Percent Auto 0.3 % (0-2); Hematocrit 44.9 % (42.0-52.0); Hemoglobin 14.6 g/dl (14.0-18.0); Imm Gran Abs Auto 0.08 X10*3/uL (0.00-0.03); Imm Gran Pct Auto 0.6 % (0.0-0.4); Lymphocytes Absolute Auto 0.5 X10*3/uL (1.2-4.9); Lymphocytes Percent Auto 4.2 % (20-40); Mean Corpuscular HGB Conc 32.5 g/dl (31.0-36.0); Mean Corpuscular Hemoglobin 28.7 pg (27.0-33.0); Mean Corpuscular Volume 88.2 fL (80.0-98.0); Mean Platelet Volume 10.8 fL (9.4-12.4); Monocytes Absolute Auto 0.9 X10*3/uL (0.1-1.2); Monocytes Percent Auto 6.8 % (2-11); Neutrophils Absolute Auto 11.1 x10*3/uL (2.0-8.3); Neutrophils Percent Auto 88.1 % (45-73); Platelet Count 188 X10*3/uL (160-400); Red Blood Count 5.09 X10*6/uL (4.60-5.80); Red Cell Distribution Width 14.2 % (11.0-16.0); White Blood Count 12.6 X10*3/uL (4.8-10.8)
[2024-05-25 12:17] LABS: Prothrombin Time 11.8 SEC (10.9-12.4)
[2024-05-25 12:24] LABS: Alanine Aminotransferase 14 U/L (0-40); Albumin Level 3.7 g/dL (3.5-5.0); Alkaline Phosphatase 94 U/L (39-117); Anion Gap 13 (12-20); Aspartate Amino Transferase 23 U/L (5-37); Bilirubin Total 0.4 mg/dL (0.0-1.0); Blood Urea Nitrogen 9 mg/dL (9-16); Calcium 9.2 mg/dL (8.4-10.2); Carbon Dioxide 22 mmol/L (22-29); Chloride 110 mmol/L (96-108); Creatinine Clr Calc Pharmacy 60.6; Estimated Glomerular Filt Rate > 60; Glucose Random 110 mg/dL (60-115); Potassium 4.2 mmol/L (3.3-5.1); Sodium 141 mmol/L (135-145); Total Protein 6.7 g/dL (6.5-8.0)
[2024-05-25 12:26] LABS: Lactic Acid 3.1 mmol/L (0.5-2.0)
[2024-05-25 12:32] LABS: Troponin-I High Sensitivity 2.8 ng/L (<3.5-35.0)
[2024-05-25 13:00] LABS: Appearance Urine Clear; Color Urine Yellow; Glucose Urine UA Negative (Negative); Leukocyte Esterase Urine Negative (Negative); Nitrite Urine Negative (Negative); Specific Gravity - Urine 1.015 (1.005-1.025); Urine Blood Negative (Negative); Urine Ketones Negative (Negative); Urine Protein Negative (Neg-Trace)
[2024-05-25 13:05] LABS: Bacteria Urine None Seen (None Seen); Hyaline Casts Urine 0-2 /LPF (0-2); RBC Urine 0-2 /HPF (0-2); Squamous Epithelial Cell Urine 0-2 /HPF (0-2); WBC Urine 0-5 /HPF (0-5)
[2024-05-25 14:07] LABS: Reflex Lactate? Lactic Acid Added
[2024-05-25 15:38] LABS: ~Lactic Acid-LAB USE ONLY 1.3 mmol/L (0.5-2.0)
[2024-05-25] MEDS: vancomycin HCL 1,000 MG in 0.9 % Sodium Chloride 250 ML 270 MG IV (15:51)
--- NOTE | 2024-05-25 16:00 | PM.IMHP ---
History of Present Illness Date of Service: 05/25/24 Chief Complaint: Fever, chills, rigors An 78 years old male with PMH of Esophageal adenocarcinoma s\p distal esophagectomy , prostate CA, neuropathy among others who presents to the hospital with rigors, nausea, vomiting and fever. No chest pain, palpitations, diarrhea or urinary symptoms. denies any sick contacts. reports all symptoms started earlier today with rigors and feeling sick to his stomach complicated with vomoiting mainly bile. In ED found to be septic with fever, tachycardia and elevated lactic acid. CT Abd showing likely pneumonia\pneumonitis. Will be admitted for further work up and treatment. 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 Surgical History History of hemorrhoidectomy (~1993) History of esophagogastroduodenoscopy (EGD) History of colonoscopy History of meniscectomy of right knee (~2003) History of esophagectomy (~2018) History of jejunostomy tube placement (~2018) History of incisional hernia repair (~2019) History of appendectomy History of prostatectomy (~2004) Social History Household Members: Spouse Housing: Condominium Are you a primary skin care specialist to a significant other at home: No Do you presently have visiting nurse or other home services: No Alcohol intake: former Patient Tobacco Use Status: Former Tobacco user Years Smoked: 35 Smoked in Last 30 Days: No Second Hand Smoke Exposure: No Use of substances other than those prescribed or required for medical reasons: No Advance Directives: Yes Advance Directives on File: Yes Advance Directives Date on File: 12/04/21 service: Yes Current occupational status: retired Current occupation: rt handed Meds Allergies Allergy/AdvReac Type Severity Reaction Status Date / Time No Known Allergies Allergy Verified 05/25/24 11:11 [No Known Allergies*] Active Medications: Current Medications Acetaminophen (Acetaminophen 325 Mg Tablet) 650 mg PO Q6H PRN PRN Reason: Pain, Mild (Pain Scale 1-3), fever or headache Benzonatate (Benzonatate 100 Mg Capsule) 100 mg PO TID PRN PRN Reason: Cough Calcium Carbonate (Calcium Carbonate 750 Mg Tab.Chew) 750 mg PO Q4H PRN PRN Reason: Heartburn Enoxaparin Sodium (Enoxaparin Sodium 40 Mg/0.4 Ml Syringe) 40 mg SUBCUT Q24H [facility] Vancomycin HCl 1,000 mg/ (Sodium Chloride) 270 mls @ 270 mls/hr IV PREOP ONE Stop: 05/25/24 16:23 Last Admin: 05/25/24 15:51 Dose: 270 mls/hr Lactated Ringer's (Lr) 1,000 mls @ 75 mls/hr IVCONT .[id number] [facility] Piperacillin Sod/Tazobactam (Sod 4.5 gm/ Sodium Chloride) 100 mls @ 200 mls/hr IV Q6H [facility] Vancomycin HCl 750 mg/ Sodium (Chloride) 265 mls @ 265 mls/hr IV ONCE ONE Stop: 05/25/24 16:57 Magnesium Hydroxide (Milk Of Magnesia 30 Ml Oral.Susp) 30 ml PO DAILY PRN PRN Reason: Constipation Melatonin (Melatonin 3 Mg Tablet) 6 mg PO BEDTIME PRN PRN Reason: Insomnia Methylprednisolone Sodium Succinate (Methylprednisolone Sod Succ 40 Mg/Ml Vial) 40 mg IVPUSH ONCE ONE Stop: 05/25/24 15:57 Omeprazole (Omeprazole 40 Mg Capsule.Dr) 40 mg PO BID@0630,1630 [facility] Ondansetron HCl (Ondansetron Hcl 4 Mg/2 Ml Vial) 4 mg IVPUSH Q8H PRN PRN Reason: Nausea and Vomiting Pharmacy Consult (Consult Rx Vancomycin Dosing) 1 each MISCELLANE DAILY PRN PRN Reason: Consult order Sodium Chloride (0.9 % Sodium Chloride Flush 3 Ml Syringe) 3 ml IVFLUSH QSHIFT [facility] Verapamil HCl (Verapamil Hcl Sr 240 Mg Tablet.Er) 240 mg PO DAILY [facility]; Protocol Home Medications ?Medication ?Instructions ?Recorded ?Confirmed ?Last Taken ?Type verapamil 240 mg 24 hr 240 mg PO DAILY 11/27/21 05/25/24 05/24/24 History capsule,extended release omeprazole 40 mg capsule,delayed 40 mg PO BID@0630,1630 06/05/23 05/25/24 05/24/24 History release gabapentin 300 mg capsule 600 mg PO BID 11/18/23 05/25/24 05/24/24 History docusate sodium 100 mg tablet 100 mg PO BID 05/25/24 05/25/24 05/24/24 History multivitamin 1 tab PO DAILY 05/25/24 05/25/24 05/24/24 History Physical Exam Vital Signs and Narrative: Vital Signs: Last Vital Signs Temp 98.8 F 05/25/24 13:14 Pulse 107 H 05/25/24 13:46 Resp 16 05/25/24 13:14 BP 108/59 L 05/25/24 13:46 Pulse Ox 95 05/25/24 13:46 O2 Del Method Nasal Cannula 05/25/24 13:46 O2 Flow Rate 3 05/25/24 13:14 BMI result Body Mass Index 23.7 Const: Other: Constitutional : Awake, interactive, not in distress Neck : Normal inspection, Supple Cardiovascular : RRR, no JVP, no lower extremity edema Respiratory : fair bilateral air entry, basal fine bilateral crackles, no wheezes Gastrointestinal: soft, lax, Normal bowel sounds, Non tender Skin : Warm, Dry Neurological : Alert & oriented x3, No focal deficit Results Labs 05/25/24 12:03 05/25/24 12:03 Labs: Laboratory Results - last 24 hr 05/25/24 05/25/24 05/25/24 12:03 12:48 15:03 MCV 88.2 MCH 28.7 MCHC 32.5 RDW 14.2 Plt Count 188 MPV 10.8 Immature Gran % (Auto) 0.6 H Neut % (Auto) 88.1 H Lymph % (Auto) 4.2 L [place] % (Auto) 6.8 Eos % (Auto) 0.0 Baso % (Auto) 0.3 Lymph # (Auto) 0.5 L [place] # (Auto) 0.9 Eos # (Auto) 0.0 Baso # (Auto) 0.0 Abs Immat Gran (auto) 0.08 H Absolute Neuts (auto) 11.1 H Absolute Nucleated RBC 0.000 Nucleated RBC % (auto) 0.0 PT 11.8 INR 1.0 Anion Gap 13 Estim Creat Clear Calc 60.6 Estimated GFR > 60 Random Glucose 110 Lactic Acid 3.1 H* Lactic Acid F/U @ 2Hr 1.3 Calcium 9.2 Total Bilirubin 0.4 AST 23 ALT 14 Alkaline Phosphatase 94 Troponin I High Sens 2.8 Total Protein 6.7 Albumin 3.7 Urine Color Yellow Urine Appearance Clear Urine pH 7.0 Ur Specific [place] 1.015 Urine Protein Negative Urine Glucose (UA) Negative Urine Ketones Negative Urine Blood Negative Urine Nitrite Negative Ur Leukocyte Esterase Negative Urine RBC 0-2 Urine WBC 0-5 Ur Squamous Epith Cells 0-2 Urine Bacteria None Seen Hyaline Casts 0-2 Imaging Radiologist's Impressions: Impressions Abdomen/Pelvis CT 05/25/24 11:17 IMPRESSION: 1. No acute abnormality within the abdomen or pelvis. 2. Bilateral lower lobe peribronchial thickening and bronchiectasis with ill-defined groundglass opacities. Findings may represent aspiration pneumonitis versus infectious etiology. 3. Stable postoperative changes status post esophagectomy and gastric pull-through. Fleischner guidelines were followed. Electronically signed by: Barbara Jeter DO 05/25/2024 03:13 PM EDT Chest X-Ray 05/25/24 12:00 IMPRESSION: No active disease. Electronically signed by: Armando Love MD 05/25/2024 02:13 PM EDT Assessment and Plan (1) Acidosis, lactic: Status: Acute (2) Hypoxia: Status: Acute (3) Sepsis: Status: Acute (4) Fever: Qualifiers: Fever type: unspecified Qualified Code(s): R50.9 - Fever, unspecified Status: Acute (5) Vomiting: Qualifiers: Nausea presence: with nausea Vomiting type: unspecified Qualified Code(s): R11.2 - Nausea with vomiting, unspecified Status: Acute Plan An 78 years old male with PMH of Esophageal adenocarcinoma s\p distal esophagectomy , prostate CA, neuropathy among others who presents to the hospital with rigors, nausea, vomiting and fever. Sepsis 2/2 Aspiration pneumonia with Lactic acidosis complicated with Hypoxemia Lactic acid normalized with IVF bolus Pending blood culture check viral panel CT scan negative for any acute intraabdominal abnormalities but showing lower lobes infiltrates IV Zosyn for now Cough medicine Wean O2 down as tolerated Zofran for nausea GERD Omeprazole HTN Verapamil Neuropathy Gabapentin DVT PPx Lovenox The patient will need 2 overnight hospital stay for treatment of sepsis pending final blood cultures and clinical improvement Quality Stroke Does the patient have a stroke diagnosis?: No VTE Prior VTE?: No VTE Risk Level:: Medical - moderate - high VTE Device Contraindication: Treatment Not Indicated VTE Drug Contraindication: N/A - Med Ordered
--- NOTE | 2024-05-25 16:12 | PHA.MEDREC ---
Addendum entered by Lawanda Alcantara RPh 05/25/24 16:20: reviewed Original Note: Pharmacy Consult ? Medication Reconciliation Pharmacy has completed the medication reconciliation. Confirmed medications with patient and list patient brought in. Patient confirmed he is no longer taking Pregabalin 50mg, he had ut in the list he presented but states he doesnt remember that medication and the name and what it was for did not seem familiar and it looks like in claims patient only filled it 04/05 for 30 days. Patient states he took his medications last night.
[2024-05-25] MEDS: Piperacillin Sodium/Tazobactam 4.5 GM in 0.9 % Sodium Chloride 100 ML IV ×2 (17:23→22:23)
[2024-05-25] MEDS: 0.9 % Sodium Chloride Flush 3 ML SYRINGE IVFLUSH ×2 (17:24→22:23)
[2024-05-25] MEDS: Omeprazole 40 MG CAPSULE.DR PO (17:25)
[2024-05-25] MEDS: Lactated Ringers 1,000 ML 75 ML IVCONT (17:26)
[2024-05-25] MEDS: Enoxaparin Sodium 40 MG/0.4 ML SYRINGE SUBCUT (17:27)
[2024-05-25] MEDS: methylPREDNISolone Sod Succ 40 MG/ML VIAL IVPUSH (17:29)
[2024-05-25] MEDS: Gabapentin 300 MG CAPSULE 600 MG PO (20:37)
[2024-05-25 21:22] LABS: COVID-19 Test Negative (Negative); IDNOW Serial# 08D9AD1C
[2024-05-25] MEDS: Flu Vacc TS2024-25(6mos up)/PF 0.5 ML SYRINGE IM (22:19)
[2024-05-26 03:01] VITALS: BP 161/79; PULSE 75; RESP 16; TEMP 36; O2SAT 95
[2024-05-26] MEDS: Piperacillin Sodium/Tazobactam 4.5 GM in 0.9 % Sodium Chloride 100 ML IV ×4 (03:06→21:35)
[2024-05-26] MEDS: Omeprazole 40 MG CAPSULE.DR PO ×2 (06:12→16:21)
[2024-05-26] MEDS: Lactated Ringers 1,000 ML 75 ML IVCONT (06:32)
[2024-05-26 07:04] LABS: Anion Gap 11 (12-20); Blood Urea Nitrogen 10 mg/dL (9-16); Calcium 8.9 mg/dL (8.4-10.2); Carbon Dioxide 24 mmol/L (22-29); Chloride 111 mmol/L (96-108); Creatinine Clr Calc Pharmacy 59.3; Estimated Glomerular Filt Rate > 60; Glucose Random 142 mg/dL (60-115); Potassium 4.1 mmol/L (3.3-5.1); Sodium 142 mmol/L (135-145)
[2024-05-26 07:07] LABS: Hematocrit 38.7 % (42.0-52.0); Hemoglobin 12.7 g/dl (14.0-18.0); Mean Corpuscular HGB Conc 32.8 g/dl (31.0-36.0); Mean Corpuscular Hemoglobin 28.8 pg (27.0-33.0); Mean Corpuscular Volume 87.8 fL (80.0-98.0); Mean Platelet Volume 11.6 fL (9.4-12.4); Platelet Count 189 X10*3/uL (160-400); Red Blood Count 4.41 X10*6/uL (4.60-5.80); Red Cell Distribution Width 14.2 % (11.0-16.0); White Blood Count 16.4 X10*3/uL (4.8-10.8)
[2024-05-26 07:25] VITALS: BP 165/78; PULSE 70; RESP 18; TEMP 36.6; O2SAT 96
[2024-05-26 07:58] VITALS: BP 165/78; PULSE 70; O2SAT 96
[2024-05-26] MEDS: polyethylene glycoL 3350 17 GM POWD.PACK PO (07:59)
[2024-05-26] MEDS: VerapamiL HCL SR 240 MG TABLET.ER PO (07:59)
[2024-05-26] MEDS: Multivitamin TABLET 1 TAB PO (07:59)
[2024-05-26] MEDS: Gabapentin 300 MG CAPSULE 600 MG PO ×2 (08:00→20:35)
[2024-05-26 08:04] VITALS: O2SAT 93
[2024-05-26 08:59] LABS: Adenovirus PCR Not Detected (Not Detect.); Bordetella parapertussis PCR Not Detected (Not Detect.); Bordetella pertussis PCR Not Detected (Not Detect.); Chlamydia pneumoniae PCR Not Detected (Not Detect.); Coronavirus 229E PCR Not Detected (Not Detect.); Coronavirus HKU1 PCR Not Detected (Not Detect.); Coronavirus NL63 PCR Not Detected (Not Detect.); Coronavirus OC43 PCR Not Detected (Not Detect.); Human metapneumovirus PCR Not Detected (Not Detect.); Influenza A PCR Not Detected (Not Detect.); Influenza B PCR Not Detected (Not Detect.); Mycoplasma pneumoniae PCR Not Detected (Not Detect.); Parainfluenza 1 PCR Not Detected (Not Detect.); Parainfluenza 2 PCR Not Detected (Not Detect.); Parainfluenza 3 PCR Not Detected (Not Detect.); Parainfluenza 4 PCR Not Detected (Not Detect.); RSV PCR Not Detected (Not Detect.); Rhino/Enterovirus PCR Not Detected (Not Detect.)
[2024-05-26 09:10] LABS: SARS-CoV-2 PCR Not Detected (Not Detect.)
--- NOTE | 2024-05-26 14:01 | MHC.CM.PN ---
CM MET WITH PT AND AT BEDSIDE PT LIVES AT HOME AND IS INDEPENDENT WITH CARE PT HAS NO SERVICES PT HAS HCP ON FILE AND PCP IS EDGARD MARCELINO (PCP SET TO CHANGE ON 08/10/24) IMM DELIVERED DCP: HOME NO SERVICES VIE PRIVATE TRANSPORT
--- NOTE | 2024-05-26 14:16 | P.PNIM_ITS ---
Subjective Subjective Date of Service: 05/26/24 Interval History: feels better off O2 no fever Review of Systems Review of Systems: Yes all other systems are reviewed and are negative Physical Exam 2 Vital Signs: Vital Signs: Last Vital Signs Temp 97.9 F 05/26/24 07:25 Pulse 70 05/26/24 07:58 Resp 18 05/26/24 07:25 BP 165/78 H 05/26/24 07:58 Pulse Ox 93 05/26/24 08:04 O2 Del Method Room Air 05/26/24 08:04 O2 Flow Rate 2 05/26/24 07:25 BMI result Body Mass Index 24.8 Const: Other: Constitutional : Awake, interactive, not in distress Neck : Normal inspection, Supple Cardiovascular : RRR, no JVP, no lower extremity edema Respiratory : fair bilateral air entry, basal fine bilateral crackles, no wheezes Gastrointestinal: soft, lax, Normal bowel sounds, Non tender Skin : Warm, Dry Neurological : Alert & oriented x3, No focal deficit Objective Data Active Medications Acetaminophen (Acetaminophen 325 Mg Tablet) 650 mg PO Q6H PRN PRN Reason: Pain, Mild (Pain Scale 1-3), fever or headache Benzocaine (Throat Lozenge, Medicated Lozenge) 1 lozenge MUCOUS MEM Q2H PRN PRN Reason: Sore Throat Benzonatate (Benzonatate 100 Mg Capsule) 100 mg PO TID PRN PRN Reason: Cough Calcium Carbonate (Calcium Carbonate 750 Mg Tab.Chew) 750 mg PO Q4H PRN PRN Reason: Heartburn Enoxaparin Sodium (Enoxaparin Sodium 40 Mg/0.4 Ml Syringe) 40 mg SUBCUT Q24H [facility] Last Admin: 05/25/24 17:27 Dose: 40 mg Documented By: JYOTI Gabapentin (Gabapentin 300 Mg Capsule) 600 mg PO BID [facility] Last Admin: 05/26/24 08:00 Dose: 600 mg Documented By: FREEMAN Piperacillin Sod/Tazobactam (Sod 4.5 gm/ Sodium Chloride) 100 mls @ 200 mls/hr IV Q6H [facility] Last Infusion: 05/26/24 11:25 Dose: Infused Documented By: FREEMAN Magnesium Hydroxide (Milk Of Magnesia 30 Ml Oral.Susp) 30 ml PO DAILY PRN PRN Reason: Constipation Melatonin (Melatonin 3 Mg Tablet) 6 mg PO BEDTIME PRN PRN Reason: Insomnia Multivitamins/Vitamin C (Multivitamin Tablet) 1 tab PO DAILY [facility] Last Admin: 05/26/24 07:59 Dose: 1 tab Documented By: FREEMAN Omeprazole (Omeprazole 40 Mg Capsule.Dr) 40 mg PO BID@0630,1630 [facility] Last Admin: 05/26/24 06:12 Dose: 40 mg Documented By: KEVAN Ondansetron HCl (Ondansetron Hcl 4 Mg/2 Ml Vial) 4 mg IVPUSH Q8H PRN PRN Reason: Nausea and Vomiting Polyethylene Glycol (Polyethylene Glycol 3350 17 Gm Powd.Pack) 17 gm PO DAILY [facility] Last Admin: 05/26/24 07:59 Dose: 17 gm Documented By: FREEMAN Sodium Chloride (0.9 % Sodium Chloride Flush 3 Ml Syringe) 3 ml IVFLUSH QSHIFT [facility] Last Admin: 05/26/24 07:59 Dose: Not Given Documented By: FREEMAN Non-Admin Reason: IV Running Verapamil HCl (Verapamil Hcl Sr 240 Mg Tablet.Er) 240 mg PO DAILY [facility]; Protocol Last Admin: 05/26/24 07:59 Dose: 240 mg Documented By: FREEMAN Labs 05/26/24 05:25 05/26/24 05:25 Labs: Laboratory Results - last 24 hr 05/25/24 05/25/24 05/25/24 15:03 17:50 21:01 MCV MCH MCHC RDW Plt Count MPV Absolute Nucleated RBC Nucleated RBC % (auto) Anion Gap Estim Creat Clear Calc Estimated GFR Random Glucose Lactic Acid F/U @ 2Hr 1.3 Calcium Respiratory Panel [place] See Note Adenovirus (Rapid PCR) Not Detected B.pert (TEM-PCR) Not Detected B.parapertussis DNA PCR Not Detected C. pneumoniae DNA (PCR) Not Detected Coronavirus OC43 (PCR) Not Detected Coronavirus HKU1 (PCR) Not Detected Coronavirus 229E (PCR) Not Detected COVID-19 (NUZHAT) Negative COVID-19 Clin Com See Note Coronavirus NL63 (PCR) Not Detected Human Metapneumovir PCR Not Detected Influenza A (RT-PCR) Not Detected Influenza B (RT-PCR) Not Detected M. pneumoniae (PCR) Not Detected Parainfluenza 1 (PCR) Not Detected Parainfluenza 2 (PCR) Not Detected Parainfluenza 3 (PCR) Not Detected Parainfluenza 4 (PCR) Not Detected RSV (PCR) Not Detected Entero/Rhino (PCR) Not Detected SARS-CoV-2 RNA (RT-PCR) Not Detected 05/26/24 05:25 MCV 87.8 MCH 28.8 MCHC 32.8 RDW 14.2 Plt Count 189 MPV 11.6 Absolute Nucleated RBC 0.000 Nucleated RBC % (auto) 0.0 Anion Gap 11 L Estim Creat Clear Calc 59.3 Estimated GFR > 60 Random Glucose 142 H Lactic Acid F/U @ 2Hr Calcium 8.9 Respiratory Panel H[place]key Adenovirus (Rapid PCR) B.pert (TEM-PCR) B.parapertussis DNA PCR C. pneumoniae DNA (PCR) Coronavirus OC43 (PCR) Coronavirus HKU1 (PCR) Coronavirus 229E (PCR) COVID-19 (NUZHAT) COVID-19 Clin Com Coronavirus NL63 (PCR) Human Metapneumovir PCR Influenza A (RT-PCR) Influenza B (RT-PCR) M. pneumoniae (PCR) Parainfluenza 1 (PCR) Parainfluenza 2 (PCR) Parainfluenza 3 (PCR) Parainfluenza 4 (PCR) RSV (PCR) Entero/Rhino (PCR) SARS-CoV-2 RNA (RT-PCR) Microbiology Microbiology Results: Microbiology 05/25/24 12:03 Blood Culture - Preliminary Blood - Venous No growth after 24 hours. 05/25/24 11:59 Blood Culture - Preliminary Blood - Venous No growth after 24 hours. Assessment and Plan (1) Sepsis: Status: Acute (2) Acidosis, lactic: Status: Acute (3) Hypoxia: Status: Acute (4) Pneumonia: Status: Acute Plan An 78 years old male with PMH of Esophageal adenocarcinoma s\p distal esophagectomy , prostate CA, neuropathy among others who presents to the hospital with rigors, nausea, vomiting and fever. Sepsis 2/2 Aspiration pneumonia with Lactic acidosis complicated with Hypoxemia looks better, off O2 Pending blood culture negative viral panel CT scan negative for any acute intraabdominal abnormalities but showing lower lobes infiltrates continue IV Zosyn f Cough medicine Zofran for nausea GERD Omeprazole HTN Verapamil Neuropathy Gabapentin DVT PPx Lovenox The patient will need overnight hospital stay for treatment of sepsis pending final blood cultures and clinical improvement Quality Stroke Does the patient have a stroke diagnosis?: No VTE Prior VTE?: No VTE Risk Level:: Medical - moderate - high VTE Device Contraindication: Treatment Not Indicated VTE Drug Contraindication: N/A - Med Ordered
[2024-05-26 15:00] VITALS: BP 135/63; PULSE 67; RESP 20; TEMP 36.8; O2SAT 92
[2024-05-26] MEDS: Enoxaparin Sodium 40 MG/0.4 ML SYRINGE SUBCUT (16:21)
[2024-05-26] MEDS: 0.9 % Sodium Chloride Flush 3 ML SYRINGE IVFLUSH ×2 (16:39→21:36)
[2024-05-26 18:58] VITALS: BP 141/71; PULSE 65; RESP 20; TEMP 36.9; O2SAT 93
[2024-05-27 03:36] VITALS: BP 167/73; PULSE 68; RESP 17; TEMP 37.3; O2SAT 94
[2024-05-27] MEDS: Piperacillin Sodium/Tazobactam 4.5 GM in 0.9 % Sodium Chloride 100 ML IV ×2 (03:45→08:57)
[2024-05-27] MEDS: Omeprazole 40 MG CAPSULE.DR PO (06:03)
[2024-05-27 07:00] LABS: Hematocrit 35.6 % (42.0-52.0); Hemoglobin 11.6 g/dl (14.0-18.0); Mean Corpuscular HGB Conc 32.6 g/dl (31.0-36.0); Mean Corpuscular Hemoglobin 28.4 pg (27.0-33.0); Mean Platelet Volume 11.7 fL (9.4-12.4); Platelet Count 177 X10*3/uL (160-400); Red Blood Count 4.09 X10*6/uL (4.60-5.80); Red Cell Distribution Width 14.3 % (11.0-16.0); White Blood Count 9.8 X10*3/uL (4.8-10.8)
[2024-05-27 07:59] VITALS: BP 168/76; PULSE 76; RESP 18; TEMP 37.1; O2SAT 93
[2024-05-27 08:29] LABS: Anion Gap 11 (12-20); Blood Urea Nitrogen 10 mg/dL (9-16); Calcium 8.6 mg/dL (8.4-10.2); Carbon Dioxide 26 mmol/L (22-29); Chloride 107 mmol/L (96-108); Creatinine Clr Calc Pharmacy 58.1; Estimated Glomerular Filt Rate > 60; Glucose Random 80 mg/dL (60-115); Potassium 3.7 mmol/L (3.3-5.1); Sodium 140 mmol/L (135-145)
[2024-05-27] MEDS: Multivitamin TABLET 1 TAB PO (08:56)
[2024-05-27] MEDS: VerapamiL HCL SR 240 MG TABLET.ER PO (08:56)
[2024-05-27] MEDS: Gabapentin 300 MG CAPSULE 600 MG PO (08:56)
[2024-05-27] MEDS: polyethylene glycoL 3350 17 GM POWD.PACK PO (08:59)
--- NOTE | 2024-05-27 09:14 | P.CDIM_ITS ---
PROVIDER RESPONSE TEXT: To clarify, the appropriate diagnosis supported by the clinical indicators: Acute QUERY TEXT: PHYSICIAN'S DOCUMENTATION REQUEST Date of Query: 05/26/2024 08:08 AM EDT Patient Name: Yoseph Orellana Admit Date: 05/25/2024 Dear Staci Whipple MD, A review of the medical record indicates additional documentation may be needed. Please review below and update the documentation accordingly. Clinical Indicators: H&P - lactic acidosis complicated with with hypoxemia. LA 3.1 normalized with IVF. Clarify which of the following accurately represents the acuity of the Lactic acidosis within the bod y of your written Plan: Possible options might include: Acute Chronic Other (explain) Clinically unable to determine (explain) Thank you, Lexy Bacon, CCS, CDIS Use of terms such as suspected, likely, concern for, or probable (associated with a specific diagnosi s that is being evaluated, monitored, or treated as if it exists) are acceptable and can be coded in the inpatient se tting, when documented at the time of discharge. Please use your independent medical judgment in providing your response. THIS QUERY IS PART OF THE PERMANENT MEDICAL RECORD
--- NOTE | 2024-05-27 09:49 | P.DS_ITS ---
DS: Providers Provider Date of Service: 05/27/24 Date of admission: 05/25/24 15:54 Date of discharge: 05/27/24 Primary care physician: Matthew Hirsch DO DS: Diagnosis Discharge Diagnosis (1) Sepsis: Status: Acute (2) Acidosis, lactic: Status: Acute (3) Hypoxia: Status: Acute (4) Pneumonia: Status: Acute DS: Summary Hospital Course Hospital Course: Admission note HPI An 78 years old male with PMH of Esophageal adenocarcinoma s\p distal esophagectomy , prostate CA, neuropathy among others who presents to the [facility] with rigors, nausea, vomiting and fever. No chest pain, palpitations, diarrhea or urinary symptoms. denies any sick contacts. reports all symptoms started earlier today with rigors and feeling sick to his stomach complicated with vomoiting mainly bile. In ED found to be septic with fever, tachycardia and elevated lactic acid. CT Abd showing likely pneumonia\pneumonitis. Will be admitted for further work up and treatment. Hospital course The patient was treated for Sepsis secondary to Aspiration pneumonia with Lactic acidosis complicated with Hypoxemia as CT scan negative for any acute intraabdominal abnormalities but showed lower lobes infiltrates. He was treated with IV antibiotic of Unasyn as he reports history of reflux and Prev partial Esophagectomy for Adenocarcinoma. Blood cultures remained negative and negative viral panel. To be discharged on Augmentin and cough medicine with a plan to follow with his PCP next week. Was seen by PT who did not feel he needs therapy on discharge. Was weaned off O2 and able to ambulate on room air with no reported dyspnea. Discharge plan Continue Augmentin for 1 more week Tessalon as needed for cough Follow with PCP next week for evaluation Time Attestation Discharge Coordination Time (in mins): 38 Quality: Safe Use of Opioids Does Pt have an Active Cancer Diagnosis on the Problem List?: No Quality: Stroke Does the patient have a stroke diagnosis?: No Physical Exam Vital Signs: Vital Signs: Last Vital Signs Temp 98.8 F 05/27/24 07:59 Pulse 76 05/27/24 07:59 Resp 18 05/27/24 07:59 BP 168/76 H 05/27/24 07:59 Pulse Ox 93 05/27/24 07:59 O2 Del Method Nasal Cannula 05/27/24 07:59 O2 Flow Rate 1 05/27/24 07:59 BMI result Body Mass Index 24.8 Const: Other: Constitutional : Awake, interactive, not in distress Neck : Normal inspection, Supple Cardiovascular : RRR, no JVP, no lower extremity edema Respiratory : good bilateral air entry, basal fine bilateral crackles, no wheezes Gastrointestinal: soft, lax, Normal bowel sounds, Non tender Skin : Warm, Dry Neurological : Alert & oriented x3, No focal deficit DS: Data Data Completed and Pending Completed studies during hospitalization [Text1]: Procedures Drainage of Mediastinum, Percutaneous Approach, Diagnostic (11/27/21) Excision of Mediastinum, Percutaneous Approach, Diagnostic (11/27/21) Labs on day of discharge: Laboratory Results - last 24 hr 05/27/24 05:18 WBC 9.8 RBC 4.09 L Hgb 11.6 L Hct 35.6 L MCV 87.0 MCH 28.4 MCHC 32.6 RDW 14.3 Plt Count 177 MPV 11.7 Absolute Nucleated RBC 0.000 Nucleated RBC % (auto) 0.0 Sodium 140 Potassium 3.7 Chloride 107 Carbon Dioxide 26 Anion Gap 11 L BUN 10 Creatinine 0.98 Estim Creat Clear Calc 58.1 Estimated GFR > 60 Random Glucose 80 Calcium 8.6 Preliminary micro results at discharge 05/25/24 12:03 Blood Culture - Preliminary Blood - Venous No growth after 24 hours. 05/25/24 11:59 Blood Culture - Preliminary Blood - Venous No growth after 24 hours. Imaging Chest x-ray: Radiologist's impression: ITS Impressions Abdomen/Pelvis CT 05/25/24 11:17 IMPRESSION: 1. No acute abnormality within the abdomen or pelvis. 2. Bilateral lower lobe peribronchial thickening and bronchiectasis with ill-defined groundglass opacities. Findings may represent aspiration pneumonitis versus infectious etiology. 3. Stable postoperative changes status post esophagectomy and gastric pull-through. Fleischner guidelines were followed. Electronically signed by: Barbara Jeter DO 05/25/2024 03:13 PM EDT RP Chest X-Ray 05/25/24 12:00 IMPRESSION: No active disease. Electronically signed by: Armando Love MD 05/25/2024 02:13 PM EDT RP Discharge Plan Discharge Anticipated Discharge Date/Time: 05/27/24 09:46 Patient Disposition: Home, Self-Care Discharge Diagnosis: Sepsis, Pneumonia Referrals: Matthew Hirsch DO [Primary Care Provider] - 1 Week Discharge Medications: New Sore Throat (benzocaine-menth) 15-3.6 mg Lozenge 1 afshan mucous membrane Q2H PRN (Reason: Sore Throat) Qty: 18 0RF benzonatate 100 mg Capsule 100 mg PO TID PRN (Reason: Cough) Qty: 20 0RF amoxicillin-pot clavulanate 875-125 mg tablet 1 tab PO BID Qty: 14 0RF Continued omeprazole 40 mg Capsule,Delayed Release(Dr/Ec) 40 mg PO BID@0630,1630 gabapentin 300 mg capsule 600 mg PO BID verapamil 240 mg capsule,ext rel. pellets 24 hr 240 mg PO DAILY polyethylene glycol 3350 17 gram Powder In Packet 17 g PO DAILY Qty: 30 0RF multivitamin Tablet 1 tab PO DAILY docusate sodium 100 mg Tablet 100 mg PO BID Diet: Advance to usual diet Activity on Discharge: As tolerated Stand Alone Forms: Patient Portal Discharge page Print Language: Luxembourgish Care Plan Goals: You were treated for sepsis as a result of pneumonia. responded well to IV antibiotics and oxygen supplement. Continue Augmentin for 1 more week Tessalon as needed for cough Follow with PCP next week for evaluation Health Concerns: Pneumonia Plan of Treatment: Antibiotics Assessment: as above
[2024-05-27 09:59] VITALS: BP 169/82
[2024-05-27 10:53] VITALS: BP 158/77
--- NOTE | 2024-05-27 11:38 | MHC.CM.PN ---
PT WILL DC HOME TODAY WITH NO SERVICES VIA FAMILY TRANSPORT
== END 2024-05-27 13:51 | disposition home or self-care (01) | DRG 871 ==
LOC: HO.ED 15:31 → HO.EDOVER 16:03 → HO.S3 17:09
PROVIDERS: Admitting Provider Student in an Organized Health Care Education/Training Program; Emergency Provider Emergency Medicine; PCP Internal Medicine; Visit Provider Student in an Organized Health Care Education/Training Program
DX: A41.9 Sepsis, unspecified organism (principal); J69.0 Pneumonitis due to inhalation of food and vomit; E87.21 Acute metabolic acidosis; K21.9 Gastro-esophageal reflux disease without esophagitis; I10 Essential (primary) hypertension; R09.02 Hypoxemia; Z20.822 Contact with and (suspected) exposure to COVID-19; Z85.46 Personal history of malignant neoplasm of prostate; Z85.01 Personal history of malignant neoplasm of esophagus; Z87.891 Personal history of nicotine dependence; Z79.899 Other long term (current) drug therapy
CPT/HCPCS: 36415; 71045; 74176; 80048; 80053; 81001; 83605; 84484; 85025; 85027; 85610; 87040; 87633; 87635; 90656; 93005; 97162; 99285; J1650; J2405; J2543; J2919; J3370; J7120

== ENCOUNTER → 2024-05-25 11:14 | Outpatient (BNV) | payer MEDICARE, SELFPAY | PROVIDERS: Emergency Provider Emergency Medicine; PCP Internal Medicine; Visit Provider Internal Medicine | DX: R00.0 Tachycardia, unspecified (principal) | CPT/HCPCS: 93010 ==

== ENCOUNTER → 2024-05-25 15:54 | Outpatient (BNV) | payer MEDICARE, SELFPAY | PROVIDERS: Admitting Provider Student in an Organized Health Care Education/Training Program; Emergency Provider Emergency Medicine; PCP Internal Medicine; Visit Provider Student in an Organized Health Care Education/Training Program | DX: A41.9 Sepsis, unspecified organism (principal); J69.0 Pneumonitis due to inhalation of food and vomit; R09.02 Hypoxemia; E87.20 Acidosis, unspecified | CPT/HCPCS: 99223; 99232; 99239 ==

== ENCOUNTER 2024-06-08 08:27 | Outpatient (REF) | payer MEDICARE, SELFPAY ==
--- NOTE | ~2024-06-08 | XR_ITS ---
EXAMINATION: XR CHEST CLINICAL INFORMATION: ASPIRATION PNEUMONIA, UNSPECIFIED ASPIRATION LATERALITY COMPARISON: Most recent chest radiograph dated 05/25/2024. TECHNIQUE: 2 views of the chest were obtained. FINDINGS: Right chest wall port with it's catheter tip in the region of the SVC. No airspace consolidation. No pleural effusion or pneumothorax. Stable cardiomediastinal silhouette. XR/XR chest 2V IMPRESSION: No acute cardiopulmonary findings. Electronically signed by: Samuel Becerra MD 07/02/2024 08:08 PM [facility]
[2024-06-08 10:04] LABS: MANUAL DIFF FLAG NO
[2024-06-08 10:11] LABS: Basophils Absolute Auto 0.1 X10*3/uL (0.0-0.2); Eosinophils Absolute Auto 0.1 X10*3/uL (0.0-0.4); Eosinophils Percent Auto 1.4 % (0-4); Hematocrit 46.4 % (42.0-52.0); Hemoglobin 14.9 g/dl (14.0-18.0); Imm Gran Abs Auto 0.01 X10*3/uL (0.00-0.03); Imm Gran Pct Auto 0.2 % (0.0-0.4); Lymphocytes Absolute Auto 1.3 X10*3/uL (1.2-4.9); Lymphocytes Percent Auto 25.7 % (20-40); Mean Corpuscular HGB Conc 32.1 g/dl (31.0-36.0); Mean Corpuscular Hemoglobin 28.5 pg (27.0-33.0); Mean Corpuscular Volume 88.7 fL (80.0-98.0); Mean Platelet Volume 10.7 fL (9.4-12.4); Monocytes Absolute Auto 0.6 X10*3/uL (0.1-1.2); Monocytes Percent Auto 11.4 % (2-11); Neutrophils Absolute Auto 3.1 x10*3/uL (2.0-8.3); Neutrophils Percent Auto 60.3 % (45-73); Platelet Count 350 X10*3/uL (160-400); Red Blood Count 5.23 X10*6/uL (4.60-5.80); Red Cell Distribution Width 14.5 % (11.0-16.0); White Blood Count 5.1 X10*3/uL (4.8-10.8)
[2024-06-08 10:51] LABS: Alanine Aminotransferase 12 U/L (0-40); Albumin Level 3.8 g/dL (3.5-5.0); Alkaline Phosphatase 90 U/L (39-117); Anion Gap 14 (12-20); Aspartate Amino Transferase 30 U/L (5-37); Bilirubin Total 0.4 mg/dL (0.0-1.0); Blood Urea Nitrogen 9 mg/dL (9-16); Calcium 9.1 mg/dL (8.4-10.2); Carbon Dioxide 26 mmol/L (22-29); Chloride 105 mmol/L (96-108); Estimated Glomerular Filt Rate > 60; Glucose Random 90 mg/dL (60-115); Potassium 4.2 mmol/L (3.3-5.1); Sodium 141 mmol/L (135-145); Total Protein 7.5 g/dL (6.5-8.0)
== END 2024-06-08 08:28 | disposition home or self-care (01) ==
LOC: HO.HMGCX 08:27
PROVIDERS: PCP Internal Medicine; Visit Provider Internal Medicine
DX: J69.0 Pneumonitis due to inhalation of food and vomit (principal)
CPT/HCPCS: 36415; 71046; 80053; 85025

== ENCOUNTER 2024-07-01 03:31 | Inpatient (IN) | payer MEDICARE, SELFPAY ==
[2024-07-01] VITALS (9 sets, daily range): BP systolic 111–144; BP diastolic 67–93; PULSE 88–115; RESP 16–21; TEMP 36.2–36.8; O2SAT 77–98; BMI 25.5
--- NOTE | ~2024-07-01 | XR_ITS ---
EXAMINATION: XR CHEST CLINICAL INFORMATION: Shortness of breath. COMPARISON: Most recent chest radiograph dated 07/06/2024. TECHNIQUE: Frontal view of the chest was obtained. FINDINGS: Diffuse interstitial prominence with slight interval increase in pulmonary vascular prominence. Right upper lobe airspace opacities are unchanged. Right chest wall port with catheter tip in the SVC. No pleural effusion or pneumothorax. Stable cardiomediastinal silhouette. XR/XR chest 1V IMPRESSION: Diffuse interstitial prominence with slight interval increase in pulmonary vascular prominence. Stable right upper lobe airspace opacities. Electronically signed by: Samuel Becerra MD 07/09/2024 11:26 AM [facility]
--- NOTE | ~2024-07-01 | XR_ITS ---
EXAMINATION: XR CHEST CLINICAL INFORMATION: NG tube placement. COMPARISON: None available. TECHNIQUE: Frontal view of the chest was obtained. FINDINGS: Enterogastric tube with the tip coiled in the esophagus and directed cranially. Removal and replacement of the tube is recommended. Right-sided chest port in unchanged position. Interstitial and pulmonary vascular prominence, new when compared to the prior examination. Streaky bibasilar airspace opacities. Stable cardiomediastinal silhouette. XR/XR chest 1V IMPRESSION: 1. Enterogastric tube with the tip coiled in the esophagus and directed cranially. Removal and replacement of the tube is recommended. 2. Interstitial and pulmonary vascular prominence, new when compared to the prior examination. Streaky bibasilar airspace opacities. Findings can be seen in the setting of pulmonary edema. This critical result was discussed with Dr. Menchaca at 8:05 PM on 07/02/2024 and it was ascertained that the content and urgency of the report was understood at the time of direct communication. Electronically signed by: Samuel Becerra MD 07/02/2024 08:17 PM [facility]
--- NOTE | ~2024-07-01 | XR_ITS ---
EXAMINATION: XR CHEST CLINICAL INFORMATION: Hypoxia. History of esophageal cancer. COMPARISON: Chest radiograph 06/08/2024. Chest CT 01/01/2024. TECHNIQUE: 2 views of the chest were obtained. FINDINGS: Right costophrenic sulcus contour shown to represent the gastric pull-through. Mild basilar atelectasis. No consolidation or edema or effusion. Stable cardiomediastinal silhouette. Soft tissue indentation along the right lateral border of the trachea as was shown previously on the prior chest x-ray and chest CT. XR/XR chest 2V IMPRESSION: 1. Mild basilar atelectasis. No acute cardiopulmonary findings. 2. Soft tissue mass indentation along the right lateral border of the trachea. Electronically signed by: Elroy Mckinnon MD 07/01/2024 05:28 PM [facility]
--- NOTE | ~2024-07-01 | XR_ITS ---
EXAMINATION: XR CHEST CLINICAL INFORMATION: dyspnea COMPARISON: 07/02/2024, 07/01/2024, dating back to 05/25/2024. CT chest 01/01/2024. TECHNIQUE: AP portable view of the chest was obtained. FINDINGS: Right chest port in place, with tip terminating in the region of the cavoatrial junction. Previously seen malpositioned NG tube has been removed. Previously seen hazy opacities involving the bilateral lower lobes have resolved. There is now new airspace opacity in the right upper lung, suspicious for either asymmetrical pulmonary edema or pneumonia. Bronchiectasis is noted in the medial lower lungs bilaterally. No definite effusions or pneumothorax. Cardiac size is normal. Hilar silhouettes and mediastinal contours appear normal. Aorta is calcified and tortuous. Gastric pull-through procedure. Vertically oriented suture line noted right suprahilar region. No acute bony abnormality. XR/XR chest 1V IMPRESSION: 1. Right chest port is well-positioned, unchanged. 2. Malpositioned NG tube has been removed. 3. Interval development of airspace opacity in the right upper lobe, findings suggestive of pneumonia versus asymmetrical pulmonary edema. 4. Previously seen bibasilar opacities have resolved. Electronically signed by: Martin Acosta MD 07/06/2024 04:32 PM [facility]
--- NOTE | ~2024-07-01 | CT_ITS ---
EXAMINATION: CT ABDOMEN AND PELVIS WITHOUT CONTRAST CLINICAL INFORMATION: Small bowel obstruction. Abdominal pain. COMPARISON: CT abdomen and pelvis 05/25/2024 TECHNIQUE: Multidetector volumetric imaging was performed from the superior aspect of the liver through the pubic symphysis. Sagittal and coronal reformatted images were obtained on the technologist's workstation. This CT examination was performed using dose optimization techniques as appropriate, variously including the following: *Automated exposure control *Adjustment of mA and/or kV according to patient size (this includes techniques or standardized protocols for targeted exams where dose is matched to indication/reason for exam; i.e. extremities or head) *Use of iterative reconstruction technique DLP: 552 mGy-cm FINDINGS: LUNG BASES: Mild bibasilar bronchiectasis and. Bronchial wall thickening. LIVER, GALLBLADDER, AND BILIARY TREE: The liver is normal in size, shape, and attenuation. No focal hepatic lesion or biliary ductal dilatation is present. The gallbladder is unremarkable with no evidence of radiopaque gallstones, gallbladder wall thickening, or obvious pericholecystic inflammatory changes. PANCREAS: Unremarkable. SPLEEN: Unremarkable. ADRENAL GLANDS: Unremarkable. KIDNEYS AND URETERS: The kidneys are normal in size, shape, and attenuation. No hydronephrosis, hydroureter, or calculi seen. No perinephric stranding. BLADDER: Decompressed GASTROINTESTINAL TRACT: Mild sigmoid diverticulosis. The appendix is not visualized. No pericecal inflammatory changes. Normal appearance of the terminal ileum. Swirling of the small bowel mesentery is noted. Multiple thin-walled dilated small bowel segments measuring up to 3.5 cm in diameter are identified. The transition between dilated and nondilated small bowel is suggested within the left upper abdominal quadrant (series 3 image 25, series 7 image 21. Mild reticulation of the adjacent small bowel mesentery is noted in this region (series 3 image 32). No free intraperitoneal gas identified. No free intraperitoneal fluid collections noted. Status post esophagectomy with gastric pull-through. The visualized stomach demonstrates moderate-marked fluid distention. No gross twisting or volvulus of the visualized stomach noted. The gastroesophageal junction is not included within the imaged field of view. Similar findings are present on the comparison CT abdomen and pelvis 05/25/2024. Moderate-marked fluid distention of the visualized stomach is noted. ABDOMINAL WALL: Midline abdominal mesh graft suture anchors are noted. No abdominal wall hernia is visualized. LYMPH NODES: Normal. VASCULAR: Diffuse calcific atherosclerosis PELVIC VISCERA: The prostate is not visualized. Surgical clips are present in the region of the prostate bed. OSSEOUS STRUCTURES: No suspicious skeletal lesions noted. CT/CT abdomen pelvis wo IV con IMPRESSION: *High-grade small bowel obstruction. A transition between dilated and nondilated small bowel is noted in the left upper abdominal quadrant adjacent to an area of twisting of the small bowel mesentery. Findings may represent obstruction related to otherwise occult adhesions or an occult internal hernia. Mild reticulation of the small bowel mesentery is noted in the region of twisting and is suspicious for mild edema and/or venous congestion of the small bowel mesentery. Venous congestion may indicate early ischemic changes of the small bowel. No evidence of intestinal perforation. Status post esophagectomy and gastric pull-through. The visualized thoracic stomach demonstrates moderate-marked fluid distention. No evidence of intestinal perforation. No abdominal wall hernias. A midline abdominal mesh graft is present without associated intestinal herniation. *Status post prostatectomy. No evidence of neoplasm within the abdomen and pelvis. *Bibasilar bronchiectasis and peribronchial inflammatory changes. Findings are suspicious for chronic aspiration pneumonitis. Electronically signed by: Tyler Lopez MD 07/01/2024 06:09 AM [facility]EN[facility]
--- NOTE | ~2024-07-01 | FL_ITS ---
EXAMINATION: FL SMALL BOWEL SERIES CLINICAL INFORMATION: Rule out complete SBO COMPARISON: None available. Correlation made with CT abdomen and pelvis dated same day, as well as 05/25/2024, and 03/19/2024. TECHNIQUE: Following a car servicer image of the abdomen, contrast was administered orally, and interval abdominal radiographs were performed to assess for contrast progression through the small bowel. Following contrast transit through the small bowel, multiple overhead radiographs of the abdomen were obtained. FINDINGS: Molecular Biology Professor image of the abdomen demonstrates loops of dilated small bowel within the central and left upper abdomen suggestive of SBO as seen on the CT examination of same day. Please refer to that report. There are herniorrhaphy clips present, as well as surgical clips within the inferior pelvis. There are foci of scarring in the lower lobes with mildly elevated left hemidiaphragm. Contrast opacifies the gastric pull-through procedure within the inferior thorax. The duodenal sweep, and proximal jejunum are markedly dilated and stacked, in an obstructive appearance. At 90 minutes, there is no further progression of contrast past 30 minute film, with no progression passed the suspected transition point in the left mid abdomen. No progression in past 30 minute film is evident. At 90 minutes, there is persistent opacification of the entire gastric pull-through with contrast. It has not progressed. No indirect evidence of free air. FL/FL small bowel follow through IMPRESSION: -Findings consistent with high-grade mechanical small bowel obstruction, with transition point as described on CT, which may be secondary to underlying small bowel volvulus or internal hernia given the CT appearance. Contrast remains within dilated proximal small bowel and throughout the gastric pull-through in the inferior thorax at 90 minutes. No definite progression of contrast past the 30 minute film. -For further elucidation of findings, please refer to the dedicated CT interpretation of same day, of which I concur. Electronically signed by: Martin Acosta MD 07/01/2024 05:20 PM [facility] [place]
--- NOTE | 2024-07-01 03:48 | ECG_ITS ---
Test Reason : ABD PAIN Blood Pressure : / mmHG Vent. Rate : 088 BPM Atrial Rate : 088 BPM P-R Int : 130 ms QRS Dur : 124 ms QT Int : 394 ms P-R-T Axes : 034 -39 017 degrees QTc Int : 476 ms Normal sinus rhythm Left axis deviation Right bundle branch block Minimal voltage criteria for LVH, may be normal variant ( R in aVL ) Abnormal ECG When compared with ECG of 25-MAY-2024 11:39, Questionable change in QRS axis T wave inversion no longer evident in Lateral leads Referred By: Generic ED Physician Electronically Signed By:MIKHAIL OLGUIN MD
--- NOTE | 2024-07-01 04:07 | MHC.EDTECH ---
Patient was biba from home ,vitals taken ,Patient was change into hospital attire ,and hooked up to ekg monitor ,ekg taken and was read by Provider ,blood draw3n and sent to lab ,Patient at bedside .
[2024-07-01 04:10] LABS: Hematocrit 44.7 % (42.0-52.0); Hemoglobin 14.9 g/dl (14.0-18.0); Mean Corpuscular HGB Conc 33.3 g/dl (31.0-36.0); Mean Corpuscular Hemoglobin 28.3 pg (27.0-33.0); Mean Corpuscular Volume 84.8 fL (80.0-98.0); Mean Platelet Volume 10.5 fL (9.4-12.4); Platelet Count 222 X10*3/uL (160-400); Red Blood Count 5.27 X10*6/uL (4.60-5.80); White Blood Count 10.9 X10*3/uL (4.8-10.8)
[2024-07-01 04:31] LABS: Alanine Aminotransferase 11 U/L (0-40); Albumin Level 3.8 g/dL (3.5-5.0); Alkaline Phosphatase 134 U/L (39-117); Anion Gap 17 (12-20); Aspartate Amino Transferase 22 U/L (5-37); Bilirubin Total 0.4 mg/dL (0.0-1.0); Blood Urea Nitrogen 12 mg/dL (9-16); Calcium 9.6 mg/dL (8.4-10.2); Carbon Dioxide 20 mmol/L (22-29); Chloride 105 mmol/L (96-108); Creatinine Clr Calc Pharmacy 61.9; Estimated Glomerular Filt Rate > 60; Glucose Random 132 mg/dL (60-115); Lipase 14 U/L (8-78); Potassium 3.9 mmol/L (3.3-5.1); Sodium 138 mmol/L (135-145)
[2024-07-01 04:39] LABS: Troponin-I High Sensitivity < 2.7 ng/L (<3.5-35.0)
--- NOTE | 2024-07-01 04:42 | ED.ABDPAIN ---
HPI - Abdominal Pain General Chief Complaint: Abdominal Pain Stated Complaint: Ab pain, hx of intestial blockages Time Seen by Provider: 07/01/24 04:39 Source: patient, family ( Spouse) and old records reviewed Mode of arrival: ambulatory Limitations: no limitations History of Present Illness ED Provider: DR. 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 Past surgical history significant for appendectomy, cholecystectomy, hernia repair, and distal esophagectomy. Related Data Home Medications ?Medication ?Instructions ?Recorded ?Confirmed verapamil 240 mg 24 hr 240 mg PO DAILY 11/27/21 05/25/24 capsule,extended release omeprazole 40 mg capsule,delayed 40 mg PO BID@0630,1630 06/05/23 05/25/24 release gabapentin 300 mg capsule 600 mg PO BID 11/18/23 05/25/24 docusate sodium 100 mg tablet 100 mg PO BID 05/25/24 05/25/24 multivitamin 1 tab PO DAILY 05/25/24 05/25/24 Previous Rx's ?Medication ?Instructions ?Recorded polyethylene glycol 3350 17 gram 17 g PO DAILY #30 ea 03/21/24 oral powder packet amoxicillin 875 mg-potassium 1 tab PO BID #14 tabs 05/27/24 clavulanate 125 mg tablet benzocaine 15 mg-menthol 3.6 mg 1 afshan mucous membrane Q2H PRN Sore 05/27/24 lozenges (Sore Throat (benzocaine Throat #18 ea with menthol)) benzonatate 100 mg capsule 100 mg PO TID PRN Cough #20 caps 05/27/24 Allergies Allergy/AdvReac Type Severity Reaction Status Date / Time No Known Allergies Allergy Verified 07/01/24 03:43 [No Known Allergies*] Review of Systems Review of Systems All other systems are reviewed and are negative Constitutional: Reports as per HPI and Reports no additional constitutional complaints Eyes: Reports as per HPI and Reports no additional eye complaints Reports system reviewed and no additional complaints, except as documented Cardiovascular: Reports as per HPI and Reports no additional cardiovascular complaints Respiratory: Reports as per HPI and Reports no additional respiratory complaints Gastrointestinal: Reports as per HPI and Reports no additional gastrointestinal complaints Genitourinary: Reports no additional female genitourinary complaints Musculoskeletal: Reports no additional musculoskeletal complaints Skin/Breast: Reports system reviewed and no additional complaints, except as docu Psychiatric: Reports no additional psychiatric complaints Endocrine: Reports no additional endocrine complaints Hematologic/Lymphatic: Reports no additional hematologic/lymphatic complaints Allergic/Immunologic: Reports no additional allergic/immunologic complaints Reports system reviewed and no additional complaints, except as documented and Reports Abnormal speech present [facility] Past Medical History Medical History Small bowel obstruction 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 GERD (gastroesophageal reflux disease) Constipation Throat mass Mass of right side of neck Personal history of nicotine dependence History of prostate cancer (~2004) History of small bowel obstruction (~2019) Shingles Vitamin B12 deficiency Diverticulosis (~1998) Osteoarthritis Basal cell carcinoma, scalp/neck Cervical spondylosis Hypercholesterolemia Hypertension Melanoma Esophageal adenocarcinoma (~2017) Surgical History History of hemorrhoidectomy (~1993) History of esophagogastroduodenoscopy (EGD) History of colonoscopy History of meniscectomy of right knee (~2003) History of esophagectomy (~2018) History of jejunostomy tube placement (~2018) History of incisional hernia repair (~2019) History of appendectomy History of prostatectomy (~2004) Family History Family History Son Non-Hodgkin lymphoma Father Prostate cancer Mother No problems noted. Social History Social History Household Members: Spouse Housing: House Are you a primary health care marketing manager to a significant other at home: No Do you presently have visiting nurse or other home services: No Alcohol intake: current Alcohol intake frequency: a few times a week Alcohol type: beer Patient Tobacco Use Status: Former Tobacco user Years Smoked: 35 Smoked in Last 30 Days: No Second Hand Smoke Exposure: No Use of substances other than those prescribed or required for medical reasons: No Advance Directives: Yes Advance Directives on File: Yes Advance Directives Date on File: 12/04/21 Do you have a plan to hurt others: No Plan service: No Current occupational status: retired Current occupation: rt handed Physical Exam ED Vital Signs: Vital Signs - 24 hr 07/01/24 03:36 07/01/24 06:29 Temperature 98.1 F 98.0 F Pulse Rate 98 98 Respiratory Rate 16 16 Blood Pressure 116/79 114/67 Pulse Oximetry 93 92 Oxygen Delivery Method Room Air Room Air BMI result Body Mass Index 25.5 Vital signs have been reviewed and appear to be correct. Blood pressure elevated. Heart rate normal. Respiratory rate normal. Temperature normal. Oxygen saturation normal. Appearance: Alert. Oriented X3. No acute distress. Head: Normal external exam. Normocephalic. Atraumatic. No Carney signs noted. No raccoon eyes noted Eyes: PERRLA. EOMI. Conjunctiva and sclera normal. Eyelids normal. ENT: TM's Normal. Pharynx normal. Uvula midline. Moist mucous membranes. No trismus noted. No drooling noted. No muffled voice noted. Neck: Normal inspection. Neck supple. FROM. No adenopathy. Thyroid Normal. No meningeal signs. No neck mass noted. CVS: Normal heart rate and rhythm. Heart sound normal. No murmurs noted. Pulses normal throughout. Respiratory: No respiratory distress. Painless inspiration. Breath sounds normal. No wheezes/rales/rhonchi noted. Chest nontender. No accessory muscle usage noted or decreased air movement noted. Abdomen: Mild distention, diffuse abdominal tenderness, no rebound tenderness, no guarding.Bowel sounds normal in all 4 quadrants. No distention noted. No organomegaly noted. No visible injury noted. Back: No CVA tenderness. Full range of motion noted. Skin: Skin warm and dry. Normal skin color. Normal skin turgor. No rashes/lesions/lacerations noted. Extremities: No lower extremity edema. Extremities exhibit normal range of motion. Extremities nontender. Neuro: Oriented X 3. Cranial nerve exam: II-XII are grossly intact No motor deficit. No sensory deficit. Reflexes normal. Course Reevaluation(s) Reevaluation #1: patient's symptoms and CT abdomen and pelvis are both consistent with high-grade small-bowel obstruction, case was discussed with Dr. Cueva recommended to admit to hospitalist, will insert NG tube. Time: 06:23 Reevaluation #2: unsuccessful several attempt to pass NG tube, epistaxis from the right nostril, patient currently refuses any more trial of NG tube. Time: 07:09 Medical Decision Making Differential Diagnosis Differential Diagnoses: The differential diagnosis associated with the presentation includes ( small-bowel obstruction, bowel perforation, colitis, diverticulitis, pancreatitis, gastritis.) Admission/Observation Consideration of admission/observation: Escalation of care including admission/observation considered Consult Healthcare Provider Management of the patient was discussed with: Hospitalist ( Dr. Engle) and Youth Advocate ( Dr. Cueva) Lab Data MDM Lab Attestation statement: I reviewed the patient's lab results. 07/01/24 04:05 07/01/24 04:05 Labs: Lab Results 07/01/24 Range/Units 04:05 WBC 10.9 H (4.8-10.8) X10*3/uL RBC 5.27 (4.60-5.80) X10*6/uL Hgb 14.9 (14.0-18.0) g/dl Hct 44.7 (42.0-52.0) % MCV 84.8 (80.0-98.0) fL MCH 28.3 (27.0-33.0) pg MCHC 33.3 (31.0-36.0) g/dl RDW 14.0 (11.0-16.0) % Plt Count 222 D (160-400) X10*3/uL MPV 10.5 (9.4-12.4) fL Absolute Nucleated RBC 0.000 (0.0-0.012) X10*3/uL Nucleated RBC % (auto) 0.0 (0.0-0.2) /100WBC Sodium 138 (135-145) mmol/L Potassium 3.9 (3.3-5.1) mmol/L Chloride 105 (96-108) mmol/L Carbon Dioxide 20 L (22-29) mmol/L Anion Gap 17 (12-20) BUN 12 (9-16) mg/dL Creatinine 0.92 (0.5-1.4) mg/dL Estim Creat Clear Calc 61.9 Estimated GFR > 60 Random Glucose 132 H (60-115) mg/dL Calcium 9.6 (8.4-10.2) mg/dL Total Bilirubin 0.4 (0.0-1.0) mg/dL AST 22 (5-37) U/L ALT 11 (0-40) U/L Alkaline Phosphatase 134 H (39-117) U/L Troponin I High Sens < 2.7 (<3.5-35.0) ng/L Total Protein 7.0 (6.5-8.0) g/dL Albumin 3.8 (3.5-5.0) g/dL Lipase 14 (8-78) U/L Independent Interpretation I performed an independent interpretation of an: CT Scan ( abdomen and pelvis:*High-grade small bowel obstruction. A transition between dilated and nondilated small bowel is noted in the left upper abdominal quadrant adjacent to an area of twisting of the small bowel mesentery. Findings may represent obstruction related to otherwise occult adhesions or ) Radiology Impression Discussion of test interpretation with radiology: I have reviewed the radiologist's reading. Medications Administered Discontinued Medications Generic Name Dose Route Start Last Admin Trade Name Freq PRN Reason Stop Dose Admin Ondansetron HCl 4 mg 07/01/24 04:39 07/01/24 05:25 Ondansetron Hcl 4 Mg/2 Ml Vial IVPUSH 07/01/24 04:40 4 mg ONCE ONE Administration Discharge Plan Discharge Clinical Impression: Small bowel obstruction Patient Disposition: Admitted As Inpatient Print Language: Kittitian
[2024-07-01] MEDS: ondansetron HCL 4 MG/2 ML VIAL IVPUSH ×3 (05:25→20:21)
--- NOTE | 2024-07-01 07:04 | PC.NURSE ---
This RN attempted to insert 14 Fr NG tube into left nostril with no success-noted resistance during the tube insertion. When attempted to insert NG in right nostril noted moderate amount of blood coming from right nostril. Pressure applied to the both nostrils with some effect. Dr. Zabala called to bedside and attempted NG tube insertion into left nostril-no success, nose clip applied for nose bleed control. Dr. Zabala offered patient another attempt for NG tube insertion via left nostril, patient refused at this time.
--- NOTE | 2024-07-01 08:16 | PC.NURSE ---
pt ambulated to the bathroom with the PCT, it was reproted to this rn that pt did have a medium size bowel movement and vomited a good amount as well
--- NOTE | 2024-07-01 08:18 | PC.NURSE ---
dr benoit at bedside to evaluate the pt, at this time will be holding off on the ng-tube
--- NOTE | 2024-07-01 09:06 | PHA.MEDREC ---
Addendum entered by Leandro Sandoval RPh 07/01/24 10:13: Med rec was reviewed by [facility]. Original Note: Pharmacy Consult ? Medication Reconciliation Pharmacy has completed the medication reconciliation. Spoke to patent and at bedside to confirm med list. patient was able tell me what medications he is taking.
--- NOTE | 2024-07-01 09:33 | PM.CNGS ---
History of Present Illness Consult details Consult date: 07/01/24 Narrative: Yoseph Orellana is a 78 year old male known to the service because of multiple episodes of partial small-bowel obstruction. He came to the ER early this morning because of another episode of abdominal pain with some nausea. He says that this woke him up from sleep at around 02:30 a.m. He says that he knew that his pain was from small-bowel obstruction as he is familiar with the symptoms. He actually feels much better now. He said he had passed flatus and BMs in the emergency room. An NG tube had been attempted multiple times but he had some bleeding from the nose so this has been aborted. He has a previous history of esophageal CA and previously underwent radiation therapy. He underwent an esophagectomy with gastric pull-through. He also underwent ventral hernia repair. He has had prior episodes of small-bowel obstruction treated non operatively. His CAT scan in the ER earlier does show dilated loops of small bowel with a transition point in the mid small bowel suggestive of a small-bowel obstruction due to adhesions. He has known COPD and history of smoking. He admits that his respiratory status has been worsening for the past few months. He says he gets of breath easily now. Review of Systems Constitutional: Constitutional: Denies chills Cardiovascular: Cardiovascular: Denies chest pain, Reports dyspnea and Reports dyspnea on exertion Respiratory: Respiratory: Denies cough, Reports dyspnea and Reports dyspnea on exertion Gastrointestinal: Gastrointestinal: Denies hematochezia and Denies change in bowel habits Genitourinary: Genitourinary: Denies hematuria and Denies difficulty urinating Musculoskeletal: Musculoskeletal: Denies back pain and Denies limited range of motion Neurologic: Denies focal weakness and Denies convulsions Psychiatric: Psychiatric: Denies depression and Denies mood swings [facility] Past Medical History Medical History Small bowel obstruction 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 Surgical History Surgical History History of hemorrhoidectomy (~1993) History of esophagogastroduodenoscopy (EGD) History of colonoscopy History of meniscectomy of right knee (~2003) History of esophagectomy (~2018) History of jejunostomy tube placement (~2018) History of incisional hernia repair (~2019) History of appendectomy History of prostatectomy (~2004) Social History Social History Household Members: Spouse Housing: Condominium Are you a primary healthcare applications analyst to a significant other at home: No Do you presently have visiting nurse or other home services: No Alcohol intake: current Alcohol intake frequency: a few times a week Alcohol type: beer Patient Tobacco Use Status: Former Tobacco user Years Smoked: 35 e-Cigarette/Vaping Use: Never Used Second Hand Smoke Exposure: No Advance Directives Date on File: 12/04/21 service: Yes Current occupational status: retired Current occupation: rt [employer] Allergies Allergy/AdvReac Type Severity Reaction Status Date / Time No Known Allergies Allergy Verified 07/01/24 03:43 [No Known Allergies*] Home Medications ?Medication ?Instructions ?Recorded ?Confirmed ?Last Taken ?Type verapamil 240 mg 24 hr 240 mg PO DAILY 11/27/21 07/01/24 06/30/24 History capsule,extended release omeprazole 40 mg capsule,delayed 40 mg PO BID@0630,1630 06/05/23 07/01/24 06/30/24 History release gabapentin 300 mg capsule 600 mg PO BID 11/18/23 07/01/24 06/30/24 History docusate sodium 100 mg tablet 100 mg PO BID 05/25/24 07/01/24 06/30/24 History multivitamin 1 tab PO DAILY 05/25/24 07/01/24 06/30/24 History Physical Exam Vital Signs: Vital Signs: Last Vital Signs Temp 98.0 F 07/01/24 06:29 Pulse 98 07/01/24 06:29 Resp 16 07/01/24 06:29 BP 114/67 07/01/24 06:29 Pulse Ox 92 07/01/24 06:29 O2 Del Method Room Air 11/22/24 06:29 BMI result Body Mass Index 25.5 Const: Other: Seems short of breath when talking General: comfortable Resp: Other: Some shortness of breath when talking Cardio: Rate: regular rate GI: Palpation (GI): Soft to palpation, not firm, nontender and no guarding Results Labs 07/05/24 06:45 07/05/24 06:45 Labs: Abnormal lab results 07/01/24 Range/Units 04:05 WBC 10.9 H (4.8-10.8) X10*3/uL Carbon Dioxide 20 L (22-29) mmol/L Random Glucose 132 H (60-115) mg/dL Alkaline Phosphatase 134 H (39-117) U/L Short CBC 07/01/24 Range/Units 04:05 WBC 10.9 H (4.8-10.8) X10*3/uL Hgb 14.9 (14.0-18.0) g/dl Hct 44.7 (42.0-52.0) % Plt Count 222 D (160-400) X10*3/uL BMP 07/01/24 04:05 Sodium 138 Potassium 3.9 Chloride 105 Carbon Dioxide 20 L BUN 12 Creatinine 0.92 Calcium 9.6 Liver Function 07/01/24 Range/Units 04:05 Total Bilirubin 0.4 (0.0-1.0) mg/dL AST 22 (5-37) U/L ALT 11 (0-40) U/L Alkaline Phosphatase 134 H (39-117) U/L Albumin 3.8 (3.5-5.0) g/dL Laboratory Results WBC 10.9 X10*3/uL (4.8-10.8) H 07/01/24 04:05 RBC 5.27 X10*6/uL (4.60-5.80) 07/01/24 04:05 Hgb 14.9 g/dl (14.0-18.0) 07/01/24 04:05 Hct 44.7 % (42.0-52.0) 07/01/24 04:05 MCV 84.8 fL (80.0-98.0) 07/01/24 04:05 MCH 28.3 pg (27.0-33.0) 07/01/24 04:05 MCHC 33.3 g/dl (31.0-36.0) 07/01/24 04:05 RDW 14.0 % (11.0-16.0) 07/01/24 04:05 Plt Count 222 X10*3/uL (160-400) D 07/01/24 04:05 MPV 10.5 fL (9.4-12.4) 07/01/24 04:05 Absolute Nucleated RBC 0.000 X10*3/uL (0.0-0.012) 07/01/24 04:05 Nucleated RBC % (auto) 0.0 /100WBC (0.0-0.2) 07/01/24 04:05 Sodium 138 mmol/L (135-145) 07/01/24 04:05 Potassium 3.9 mmol/L (3.3-5.1) 07/01/24 04:05 Chloride 105 mmol/L (96-108) 07/01/24 04:05 Carbon Dioxide 20 mmol/L (22-29) L 07/01/24 04:05 Anion Gap 17 (12-20) 07/01/24 04:05 BUN 12 mg/dL (9-16) 07/01/24 04:05 Creatinine 0.92 mg/dL (0.5-1.4) 07/01/24 04:05 Estim Creat Clear Calc 61.9 07/01/24 04:05 Estimated GFR > 60 07/01/24 04:05 Random Glucose 132 mg/dL (60-115) H 07/01/24 04:05 Calcium 9.6 mg/dL (8.4-10.2) 07/01/24 04:05 Total Bilirubin 0.4 mg/dL (0.0-1.0) 07/01/24 04:05 AST 22 U/L (5-37) 07/01/24 04:05 ALT 11 U/L (0-40) 07/01/24 04:05 Alkaline Phosphatase 134 U/L (39-117) H 07/01/24 04:05 Troponin I High Sens < 2.7 ng/L (<3.5-35.0) 07/01/24 04:05 Total Protein 7.0 g/dL (6.5-8.0) 07/01/24 04:05 Albumin 3.8 g/dL (3.5-5.0) 07/01/24 04:05 Lipase 14 U/L (8-78) 07/01/24 04:05 Impressions Abdomen/Pelvis CT 07/01/24 04:51 IMPRESSION: *High-grade small bowel obstruction. A transition between dilated and nondilated small bowel is noted in the left upper abdominal quadrant adjacent to an area of twisting of the small bowel mesentery. Findings may represent obstruction related to otherwise occult adhesions or an occult internal hernia. Mild reticulation of the small bowel mesentery is noted in the region of twisting and is suspicious for mild edema and/or venous congestion of the small bowel mesentery. Venous congestion may indicate early ischemic changes of the small bowel. No evidence of intestinal perforation. Status post esophagectomy and gastric pull-through. The visualized thoracic stomach demonstrates moderate-marked fluid distention. No evidence of intestinal perforation. No abdominal wall hernias. A midline abdominal mesh graft is present without associated intestinal herniation. *Status post prostatectomy. No evidence of neoplasm within the abdomen and pelvis. *Bibasilar bronchiectasis and peribronchial inflammatory changes. Findings are suspicious for chronic aspiration pneumonitis. Electronically signed by: Tyler Lopez MD 07/01/2024 06:09 AM [facility] Imaging Abdomen CT scan report/results: report reviewed and image reviewed CT scan - pelvis: report reviewed and image reviewed Assessment and Plan (1) Small bowel obstruction: Status: Acute His CAT scan does show dilated small bowel loops in question of twisting of the mesentery. However, his exam is very benign. His abdomen is soft and currently he is not tender . He has good amounts of air in the colon distally. He has had multiple episodes of partial small-bowel obstruction in the past. In view of problems with putting an NG tube, I would hold off on reinsertion because of his nasal bleed. He should be kept NPO for now however He says that his symptoms have improved significantly. He currently denies abdominal pain and nausea. He will be followed along closely by the surgical service. He does state that he would like to avoid any surgical intervention for his abdomen as much as possible. He understands the possibility of requiring surgical intervention for his partial small-bowel obstruction. Procedures Date of Service Date of Service: 07/05/24
--- NOTE | 2024-07-01 09:51 | PC.NURSE ---
pt had another large bowel movement, pt reports feeling much better then he did this morning, pain at 5/10, abd soft and non-tender
--- NOTE | 2024-07-01 11:08 | PC.NURSE ---
reached out to Dr Gilbert in regards to the pt pending admission for the last 4 and half hours, dr Gilbert was not aware of this pt, spoke with dr Isaacs as well and he will reach out to Vladimir about this patient so the patient can get admitted
--- NOTE | 2024-07-01 12:09 | PC.NURSE ---
pt is reporting abd pain at 8/10 and is requesting pain medication
[2024-07-01] MEDS: Morphine Sulfate 4 MG/ML CARTRIDGE IVPUSH ×3 (12:21→21:15)
--- NOTE | 2024-07-01 12:26 | P.HPHOSP_ITS ---
History of Present Illness Date of Service: 07/01/24 Attending physician on admission: Gamaliel Gilbert Chief Complaint: Abdominal pain Pt is an 78-year-old male with a PMH significant for?esophageal adenocarcinoma s/p distal esophagectomy with gastric pull-through and 2019 with recurrence 2021 s/p chemo, hx of prostate cancer, peripheral neuropathy, HTN, hx of multiple SBOS, and GERD who presents to the ED with?lower abdominal pain, nausea, vomiting since 02:30. Patient has a history of 5-6 episodes of small-bowel obstruction since 2019, and reports symptoms are similar to previous. CT of abdomen and pelvis found high-grade SBO with transition point in left upper abdominal quadrant. Insertion of NGT was attempted x2, but aborted due to pain and nasal bleed. Patient notes has had 2 small formed bowel movements while in the ED and has been passing gas. Abdominal pain currently well-controlled, but it continues to have some nausea and vomiting. General surgery was consulted who recommended admitting patient to Medicine, keeping NPO, and holding off on NGT for now. Chronic cough at baseline. Denies shortness or breath or difficulty breathing. No chest pain/pressure, palpitations. Of note, patient reports has been having increased sore throat and difficulty swallowing for the past 6 months, and often feels like he has food stuck in his throat. Reports eats a normal diet but avoid certain foods that are course and thin such as coleslaw. In the ED pt was tachycardic up to 115, tachypneic up to 21, satting at 92% on RA. Labs were significant for alk-phos slightly elevated at 134, otherwise grossly unremarkable and baseline for patient. No significant leukocytosis. Stable H&H. No significant electrolyte abnormalities. Renal function baseline. Troponin negative. CT?of abdomen and pelvis found high-grade SBO with transition point in left upper abdominal quadrant. EKG demonstrated normal sinus rhythm with RBBB but no evidence of significant ST elevations or depressions. Pt was treated with ondansetron and morphine. Pt will be admitted to the hospital for treatment and further evaluation of small-bowel obstruction. 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 Surgical History History of hemorrhoidectomy (~1993) History of esophagogastroduodenoscopy (EGD) History of colonoscopy History of meniscectomy of right knee (~2003) History of esophagectomy (~2018) History of jejunostomy tube placement (~2018) History of incisional hernia repair (~2019) History of appendectomy History of prostatectomy (~2004) Social History Household Members: Spouse Housing: House Are you a primary director career services to a significant other at home: No Do you presently have visiting nurse or other home services: No Alcohol intake: current Alcohol intake frequency: a few times a week Alcohol type: beer Patient Tobacco Use Status: Former Tobacco user Years Smoked: 35 Smoked in Last 30 Days: No Second Hand Smoke Exposure: No Use of substances other than those prescribed or required for medical reasons: No Advance Directives: Yes Advance Directives on File: Yes Advance Directives Date on File: 12/04/21 Do you have a plan to hurt others: No Plan service: No Current occupational status: retired Current occupation: rt [employer] Meds Allergies Allergy/AdvReac Type Severity Reaction Status Date / Time No Known Allergies Allergy Verified 07/01/24 03:43 [No Known Allergies*] Home Medications ?Medication ?Instructions ?Recorded ?Confirmed ?Last Taken ?Type verapamil 240 mg 24 hr 240 mg PO DAILY 11/27/21 07/01/24 06/30/24 History capsule,extended release omeprazole 40 mg capsule,delayed 40 mg PO BID@0630,1630 06/05/23 07/01/24 06/30/24 History release gabapentin 300 mg capsule 600 mg PO BID 11/18/23 07/01/24 06/30/24 History docusate sodium 100 mg tablet 100 mg PO BID 05/25/24 07/01/24 06/30/24 History multivitamin 1 tab PO DAILY 05/25/24 07/01/24 06/30/24 History Physical Exam 2 Vital Signs and Narrative: Vital Signs: Last Vital Signs Temp 98.2 F 07/01/24 11:59 Pulse 115 H 07/01/24 11:59 Resp 21 H 07/01/24 11:59 BP 113/76 07/01/24 11:59 Pulse Ox 92 07/01/24 11:59 O2 Del Method Room Air 07/01/24 11:59 BMI result Body Mass Index 25.5 Constitutional: Alert, in no acute distress. Mental Status: Oriented to person, place and time. Eyes: Pupils are equal, round, and reactive to light. Ear, Nose, and Throat: Oropharynx clear, mucous membranes moist. Ears and nose without deformities. Trachea midline. Chronically speaks in a broken whisper. Respiratory: Clear to auscultation bilaterally. No wheezing, rales, or rhonchi. Cardiovascular: S1, S2 regular rhythm, tachycardic. No murmurs, rubs, or gallops. Gastrointestinal: Abdomen soft, non-distended, mild lower abd pain. +BS Neurologic: Cranial nerves II-XII are grossly intact bilaterally. No focal neurological deficits. Moves all extremities spontaneously. Skin: Warm, dry. Extremities: No edema. Psychiatric: Normal mood and affect. Results Labs 07/01/24 04:05 07/01/24 04:05 Labs: Laboratory Results - last 24 hr 07/01/24 04:05 MCV 84.8 MCH 28.3 MCHC 33.3 RDW 14.0 Plt Count 222 D MPV 10.5 Absolute Nucleated RBC 0.000 Nucleated RBC % (auto) 0.0 Anion Gap 17 Estim Creat Clear Calc 61.9 Estimated GFR > 60 Random Glucose 132 H Calcium 9.6 Total Bilirubin 0.4 AST 22 ALT 11 Alkaline Phosphatase 134 H Troponin I High Sens < 2.7 Total Protein 7.0 Albumin 3.8 Lipase 14 Imaging Radiologist's Impressions: Impressions Abdomen/Pelvis CT 07/01/24 04:51 IMPRESSION: *High-grade small bowel obstruction. A transition between dilated and nondilated small bowel is noted in the left upper abdominal quadrant adjacent to an area of twisting of the small bowel mesentery. Findings may represent obstruction related to otherwise occult adhesions or an occult internal hernia. Mild reticulation of the small bowel mesentery is noted in the region of twisting and is suspicious for mild edema and/or venous congestion of the small bowel mesentery. Venous congestion may indicate early ischemic changes of the small bowel. No evidence of intestinal perforation. Status post esophagectomy and gastric pull-through. The visualized thoracic stomach demonstrates moderate-marked fluid distention. No evidence of intestinal perforation. No abdominal wall hernias. A midline abdominal mesh graft is present without associated intestinal herniation. *Status post prostatectomy. No evidence of neoplasm within the abdomen and pelvis. *Bibasilar bronchiectasis and peribronchial inflammatory changes. Findings are suspicious for chronic aspiration pneumonitis. Electronically signed by: Tyler Lopez MD 07/01/2024 06:09 AM [facility] Assessment and Plan (1) Small bowel obstruction: Status: Acute Plan Pt is an 78-year-old male with a PMH significant for?esophageal adenocarcinoma s/p distal esophagectomy with gastric pull-through and 2019 with recurrence 2021 s/p chemo, hx of prostate cancer, peripheral neuropathy, HTN, hx of multiple SBOS, and GERD who presents to the ED with?lower abdominal pain, nausea, vomiting since 02:30. Pt will be admitted to the hospital for treatment and further evaluation of small-bowel obstruction. Small bowel obstruction Patient with N/V, lower abdominal pain since 2:30 CT showing high-grade SBO with transition in left upper abdominal quadrant Has had 2 bowel movements while in the ED, currently passing gas Will keep NPO Antiemetics, analgesics, IVF NGT placement failed x2 due to nasal bleeding, will hold off for now General surgery consult Tachycardia Secondary to SBO, not sepsis No indication for antibiotics at this time Dysphagia Patient reports worsening sore throat and difficulty swallowing x6 months Hx of recurrent esophageal cancer in 2018 and 2021 Consider formal speech and swallow evaluation once no longer NPO HTN Continue verapamil Peripheral neuropathy Continue gabapentin GERD Continue PPI Full Code Attending:?Dr. Gilbert DVT Prophylaxis: Lovenox Pt will require a hospitalization of at least two nights for treatment of?small- bowel obstruction that will require administration of IVF, IV analgesics, IV antiemetics, and close monitoring for full resolution. Quality Stroke Does the patient have a stroke diagnosis?: No VTE Prior VTE?: No VTE Risk Level:: Medical - moderate - high VTE Device Contraindication: Treatment Not Indicated VTE Drug Contraindication: N/A - Med Ordered
--- NOTE | 2024-07-01 13:06 | PC.NURSE ---
pt oxygen does dip down occasional at rest, this time it dropped all the way down to 77% on room air, pt in distress at this time, pt took a couple of deep breaths and oxygen goes right up to 90-92%
[2024-07-01] MEDS: Lactated Ringers 1,000 ML 100 ML IVCONT ×2 (13:29→22:21)
[2024-07-01] MEDS: Enoxaparin Sodium 40 MG/0.4 ML SYRINGE SUBCUT (13:29)
[2024-07-01] MEDS: Gabapentin 300 MG CAPSULE 600 MG PO ×2 (13:35→20:33)
--- NOTE | 2024-07-01 14:22 | PM.EVENT ---
Event Note Date of Service: 07/01/24 Event Note: Seen on afternoon rounds Says he has no abdominal pain this morning No further episodes of nausea or vomiting Admits to shortness of breath - he says that he his respiratory status has been worse the past few months Abdomen is soft, no guarding, no rebound, no tenderness at this time Keep NPO with ice chips Despite CT scan finding of question of mesenteric twisting, his exam is very benign He reiterated that he would like to avoid any surgical intervention as much as possible Time Spent With Patient Time: Total time managing care of this patient today ____ minutes.
[2024-07-01] MEDS: Omeprazole 40 MG CAPSULE.DR PO (16:16)
[2024-07-01] MEDS: Diatrizoate Meglumine, Sodium 120 ML SOLUTION PO (16:32)
[2024-07-02] VITALS (15 sets, daily range): BP systolic 91–165; BP diastolic 54–92; PULSE 90–120; RESP 16–21; TEMP 36–37.1; O2SAT 89–97
[2024-07-02] MEDS: Calcium Carbonate 750 MG TAB.CHEW PO (00:42)
[2024-07-02] MEDS: Morphine Sulfate 4 MG/ML CARTRIDGE IVPUSH ×2 (02:27→06:21)
[2024-07-02] MEDS: ondansetron HCL 4 MG/2 ML VIAL IVPUSH ×3 (02:35→16:00)
--- NOTE | 2024-07-02 02:47 | PC.NURSE ---
0230 pt has not voided all shift bladder scanned for 108 cc.
[2024-07-02] MEDS: Lactated Ringers 1,000 ML 100 ML IVCONT (08:22)
[2024-07-02 08:25] LABS: Anion Gap 19 (12-20); Blood Urea Nitrogen 26 mg/dL (9-16); Calcium 9.5 mg/dL (8.4-10.2); Carbon Dioxide 25 mmol/L (22-29); Chloride 102 mmol/L (96-108); Creatinine Clr Calc Pharmacy 43.5; Estimated Glomerular Filt Rate 53; Glucose Random 133 mg/dL (60-115); Magnesium 2.5 mg/dL (1.6-2.6); Potassium 4.3 mmol/L (3.3-5.1); Sodium 142 mmol/L (135-145)
--- NOTE | 2024-07-02 09:36 | P.PNGS_ITS ---
Subjective Subjective Date of Service: 07/02/24 Interval history: Patient was had progression of his abdominal symptoms. He is complaining of abdominal swelling and colicky pain. Upper GI from last evening confirmed CT scan findings of complete/high-grade small-bowel obstruction. Yesterday the patient did not want to consider surgical intervention. I discussed the findings with him as well as his exam progressing with marked distention and diffuse abdominal tenderness. Physical Exam 2 Vital Signs: Vital Signs: Last Vital Signs Temp 97.6 F 07/02/24 08:00 Pulse 102 H 07/02/24 08:00 Resp 20 07/02/24 08:00 BP 122/82 07/02/24 08:00 Pulse Ox 93 07/02/24 08:00 O2 Del Method Nasal Cannula 07/02/24 08:00 O2 Flow Rate 2 07/02/24 08:00 BMI result Body Mass Index 25.5 GI: Other: Marked abdominal distention and diffuse tenderness. Objective Data Active Medications Acetaminophen (Acetaminophen 325 Mg Tablet) 650 mg PO Q6H PRN PRN Reason: Pain, Mild (Pain Scale 1-3), fever or headache Calcium Carbonate (Calcium Carbonate 750 Mg Tab.Chew) 750 mg PO Q4H PRN PRN Reason: Heartburn Last Admin: 07/02/24 00:42 Dose: 750 mg Documented By: TOM Enoxaparin Sodium (Enoxaparin Sodium 40 Mg/0.4 Ml Syringe) 40 mg SUBCUT Q24H [facility] Last Admin: 07/01/24 13:29 Dose: 40 mg Documented By: SHADE Gabapentin (Gabapentin 300 Mg Capsule) 600 mg PO BID [facility] Last Admin: 07/02/24 08:31 Dose: Not Given Documented By: EMILY Non-Admin Reason: Nausea Lactated Ringer's (Lr) 1,000 mls @ 100 mls/hr IVCONT .Q10H [facility] Last Admin: 07/02/24 08:22 Dose: 100 mls/hr Documented By: EMILY Magnesium Hydroxide (Milk Of Magnesia 30 Ml Oral.Susp) 30 ml PO DAILY PRN PRN Reason: Constipation Melatonin (Melatonin 3 Mg Tablet) 6 mg PO BEDTIME PRN PRN Reason: Insomnia Morphine Sulfate (Morphine Sulfate 4 Mg/Ml Cartridge) 4 mg IVPUSH Q4H PRN; Protocol PRN Reason: Pain, Severe (Pain Scale 7-10) Last Admin: 07/02/24 06:21 Dose: 4 mg Documented By: ROHAN Omeprazole (Omeprazole 40 Mg Capsule.Dr) 40 mg PO BID@0630,1630 [facility] Last Admin: 07/02/24 06:26 Dose: Not Given Documented By: ROHAN Non-Admin Reason: Patient Refused Ondansetron HCl (Ondansetron Hcl 4 Mg/2 Ml Vial) 4 mg IVPUSH Q4H PRN PRN Reason: Nausea and Vomiting Last Admin: 07/02/24 06:20 Dose: 4 mg Documented By: ROHAN Sodium Chloride (0.9 % Sodium Chloride Flush 3 Ml Syringe) 3 ml IVFLUSH QSHIFT [facility] Last Admin: 07/02/24 08:20 Dose: Not Given Documented By: EMILY Non-Admin Reason: IV Running Verapamil HCl (Verapamil Hcl Sr 240 Mg Tablet.Er) 240 mg PO DAILY [facility]; Protocol Last Admin: 07/02/24 08:31 Dose: Not Given Documented By: EMILY Non-Admin Reason: Nausea Labs 07/01/24 04:05 07/02/24 06:41 Labs: Laboratory Results - last 24 hr 07/02/24 06:41 Hold Purple Top SEE NOTE Anion Gap 19 Estim Creat Clear Calc 43.5 Estimated GFR 53 Random Glucose 133 H Calcium 9.5 Magnesium 2.5 Procedures Date of Service Date of Service: 07/02/24 Progress Note: A&P Assessment and plan (1) Small bowel obstruction: Status: Acute Plan Options were discussed with the patient which are to proceed with the surgical intervention or no surgery and consider comfort measures only. After lengthy discussion, patient would like to proceed with surgery. A review of the risks, benefits, and alternatives of exploratory laparotomy with possible lysis of adhesions, bowel resection, possible ostomy, ventilatory dependence, bleeding, infection, recurrence, even were extensively reviewed with the patient and he understands. All questions answered. He wishes to proceed. Consent signed. Patient will be an add on case for this morning. Time Spent With Patient Time: Total time managing care of this patient today ____ minutes. Quality Stroke Does the patient have a stroke diagnosis?: No VTE Prior VTE?: No VTE Risk Level:: Medical - moderate - high VTE Device Contraindication: Treatment Not Indicated VTE Drug Contraindication: N/A - Med Ordered
--- NOTE | 2024-07-02 10:48 | HO.PM.IMPN ---
Subjective Subjective Date of Service: 07/02/24 Interval History: ongoing N/V + abdominal pain NPO for OR Review of Systems Review of Systems: Yes all other systems are reviewed and are negative Physical Exam Vital Signs: Vital Signs: Last Vital Signs Temp 97.6 F 07/02/24 08:00 Pulse 102 H 07/02/24 08:00 Resp 20 07/02/24 08:00 BP 122/82 07/02/24 08:00 Pulse Ox 93 07/02/24 08:00 O2 Del Method Nasal Cannula 07/02/24 08:00 O2 Flow Rate 2 07/02/24 08:00 BMI result Body Mass Index 25.5 Gen: in no acute distress HEENT: sclera anicteric, moist mucus membranes Neck: supple Lungs: clear to auscultation bilaterally Heart: regular rate and rhythm, no murmurs Abd: distended, tender throughout Ext: no edema Skin: warm/well-perfused Neuro: alert and oriented x3, no focal findings Psych: appropriate affect Objective Data Active Medications Acetaminophen (Acetaminophen 325 Mg Tablet) 650 mg PO Q6H PRN PRN Reason: Pain, Mild (Pain Scale 1-3), fever or headache Calcium Carbonate (Calcium Carbonate 750 Mg Tab.Chew) 750 mg PO Q4H PRN PRN Reason: Heartburn Last Admin: 07/02/24 00:42 Dose: 750 mg Documented By: TOM Enoxaparin Sodium (Enoxaparin Sodium 40 Mg/0.4 Ml Syringe) 40 mg SUBCUT Q24H [facility] Last Admin: 07/01/24 13:29 Dose: 40 mg Documented By: SHADE Gabapentin (Gabapentin 300 Mg Capsule) 600 mg PO BID [facility] Last Admin: 07/02/24 08:31 Dose: Not Given Documented By: EMILY Non-Admin Reason: Nausea Lactated Ringer's (Lr) 1,000 mls @ 100 mls/hr IVCONT .Q10H [facility] Last Admin: 07/02/24 08:22 Dose: 100 mls/hr Documented By: EMILY Magnesium Hydroxide (Milk Of Magnesia 30 Ml Oral.Susp) 30 ml PO DAILY PRN PRN Reason: Constipation Melatonin (Melatonin 3 Mg Tablet) 6 mg PO BEDTIME PRN PRN Reason: Insomnia Morphine Sulfate (Morphine Sulfate 4 Mg/Ml Cartridge) 4 mg IVPUSH Q4H PRN; Protocol PRN Reason: Pain, Severe (Pain Scale 7-10) Last Admin: 07/02/24 06:21 Dose: 4 mg Documented By: ROHAN Omeprazole (Omeprazole 40 Mg Capsule.Dr) 40 mg PO BID@0630,1630 [facility] Last Admin: 07/02/24 06:26 Dose: Not Given Documented By: ROHAN Non-Admin Reason: Patient Refused Ondansetron HCl (Ondansetron Hcl 4 Mg/2 Ml Vial) 4 mg IVPUSH Q4H PRN PRN Reason: Nausea and Vomiting Last Admin: 07/02/24 06:20 Dose: 4 mg Documented By: ROHAN Sodium Chloride (0.9 % Sodium Chloride Flush 3 Ml Syringe) 3 ml IVFLUSH QSHIFT [facility] Last Admin: 07/02/24 08:20 Dose: Not Given Documented By: EMILY Non-Admin Reason: IV Running Verapamil HCl (Verapamil Hcl Sr 240 Mg Tablet.Er) 240 mg PO DAILY [facility]; Protocol Last Admin: 07/02/24 08:31 Dose: Not Given Documented By: EMILY Non-Admin Reason: Nausea Labs 07/01/24 04:05 07/02/24 06:41 Labs: Laboratory Results - last 24 hr Laboratory Results WBC 10.9 X10*3/uL (4.8-10.8) H 07/01/24 04:05 RBC 5.27 X10*6/uL (4.60-5.80) 07/01/24 04:05 Hgb 14.9 g/dl (14.0-18.0) 07/01/24 04:05 Hct 44.7 % (42.0-52.0) 07/01/24 04:05 MCV 84.8 fL (80.0-98.0) 07/01/24 04:05 MCH 28.3 pg (27.0-33.0) 07/01/24 04:05 MCHC 33.3 g/dl (31.0-36.0) 07/01/24 04:05 RDW 14.0 % (11.0-16.0) 07/01/24 04:05 Plt Count 222 X10*3/uL (160-400) D 07/01/24 04:05 MPV 10.5 fL (9.4-12.4) 07/01/24 04:05 Absolute Nucleated RBC 0.000 X10*3/uL (0.0-0.012) 07/01/24 04:05 Nucleated RBC % (auto) 0.0 /100WBC (0.0-0.2) 07/01/24 04:05 Hold Purple Top SEE NOTE 07/02/24 06:41 Sodium 142 mmol/L (135-145) 07/02/24 06:41 Potassium 4.3 mmol/L (3.3-5.1) 07/02/24 06:41 Chloride 102 mmol/L (96-108) 07/02/24 06:41 Carbon Dioxide 25 mmol/L (22-29) 07/02/24 06:41 Anion Gap 19 (12-20) 07/02/24 06:41 BUN 26 mg/dL (9-16) H 07/02/24 06:41 Creatinine 1.31 mg/dL (0.5-1.4) 07/02/24 06:41 Estim Creat Clear Calc 43.5 07/02/24 06:41 Estimated GFR 53 07/02/24 06:41 Random Glucose 133 mg/dL (60-115) H 07/02/24 06:41 Calcium 9.5 mg/dL (8.4-10.2) 07/02/24 06:41 Magnesium 2.5 mg/dL (1.6-2.6) 07/02/24 06:41 Total Bilirubin 0.4 mg/dL (0.0-1.0) 07/01/24 04:05 AST 22 U/L (5-37) 07/01/24 04:05 ALT 11 U/L (0-40) 07/01/24 04:05 Alkaline Phosphatase 134 U/L (39-117) H 07/01/24 04:05 Troponin I High Sens < 2.7 ng/L (<3.5-35.0) 07/01/24 04:05 Total Protein 7.0 g/dL (6.5-8.0) 07/01/24 04:05 Albumin 3.8 g/dL (3.5-5.0) 07/01/24 04:05 Lipase 14 U/L (8-78) 07/01/24 04:05 Impressions Abdomen/Pelvis CT 07/01/24 04:51 IMPRESSION: *High-grade small bowel obstruction. A transition between dilated and nondilated small bowel is noted in the left upper abdominal quadrant adjacent to an area of twisting of the small bowel mesentery. Findings may represent obstruction related to otherwise occult adhesions or an occult internal hernia. Mild reticulation of the small bowel mesentery is noted in the region of twisting and is suspicious for mild edema and/or venous congestion of the small bowel mesentery. Venous congestion may indicate early ischemic changes of the small bowel. No evidence of intestinal perforation. Status post esophagectomy and gastric pull-through. The visualized thoracic stomach demonstrates moderate-marked fluid distention. No evidence of intestinal perforation. No abdominal wall hernias. A midline abdominal mesh graft is present without associated intestinal herniation. *Status post prostatectomy. No evidence of neoplasm within the abdomen and pelvis. *Bibasilar bronchiectasis and peribronchial inflammatory changes. Findings are suspicious for chronic aspiration pneumonitis. Electronically signed by: Tyler Lopez MD 07/01/2024 06:09 AM EST RP Chest X-Ray 07/01/24 14:00 IMPRESSION: 1. Mild basilar atelectasis. No acute cardiopulmonary findings. 2. Soft tissue mass indentation along the right lateral border of the trachea. Electronically signed by: Elroy Mckinnon MD 07/01/2024 05:28 PM EST RP Upper GI and Small Bowel X-Ray 07/01/24 14:20 IMPRESSION: -Findings consistent with high-grade mechanical small bowel obstruction, with transition point as described on CT, which may be secondary to underlying small bowel volvulus or internal hernia given the CT appearance. Contrast remains within dilated proximal small bowel and throughout the gastric pull-through in the inferior thorax at 90 minutes. No definite progression of contrast past the 30 minute film. -For further elucidation of findings, please refer to the dedicated CT interpretation of same day, of which I concur. 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], 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, prostate CA, peripheral neuropathy, HTN, GERD, and multiple SBOs presenting with N/V/abd pain and found to have high-grade SBO SBO - Surg consulted, due to worsening symptoms of high-grade obstruction plan operative intervention today; NPO; IV fluids dysphagia - 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 Quality Stroke Does the patient have a stroke diagnosis?: No VTE Prior VTE?: No VTE Risk Level:: Medical - moderate - high VTE Device Contraindication: Treatment Not Indicated VTE Drug Contraindication: N/A - Med Ordered
--- NOTE | 2024-07-02 12:14 | P.CONAN_ITS ---
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 Family history of problems with anesthesia: No Surgical History Surgical History History of hemorrhoidectomy (~1993) History of esophagogastroduodenoscopy (EGD) History of colonoscopy History of meniscectomy of right knee (~2003) History of esophagectomy (~2018) History of jejunostomy tube placement (~2018) History of incisional hernia repair (~2019) History of appendectomy History of prostatectomy (~2004) History of Problems with Anesthesia: No Social History Social History Household Members: Spouse Housing: [facility] Are you a primary residential child care counselor to a significant other at home: No Do you presently have visiting nurse or other home services: No Alcohol intake: current Alcohol intake frequency: a few times a week Alcohol type: beer Patient Tobacco Use Status: Former Tobacco user Years Smoked: 35 e-Cigarette/Vaping Use: Never Used Second Hand Smoke Exposure: No Advance Directives Date on File: 12/04/21 service: No Current occupational status: retired Current occupation: rt handed Meds Allergies Allergy/AdvReac Type Severity Reaction Status Date / Time No Known Allergies Allergy Verified 07/01/24 03:43 [No Known Allergies*] Active Medications: Current Medications Acetaminophen (Acetaminophen 325 Mg Tablet) 650 mg PO Q6H PRN PRN Reason: Pain, Mild (Pain Scale 1-3), fever or headache Calcium Carbonate (Calcium Carbonate 750 Mg Tab.Chew) 750 mg PO Q4H PRN PRN Reason: Heartburn Last Admin: 07/02/24 00:42 Dose: 750 mg Enoxaparin Sodium (Enoxaparin Sodium 40 Mg/0.4 Ml Syringe) 40 mg SUBCUT Q24H [facility] Last Admin: 07/01/24 13:29 Dose: 40 mg Gabapentin (Gabapentin 300 Mg Capsule) 600 mg PO BID [facility] Last Admin: 07/02/24 08:31 Dose: Not Given Lactated Ringer's (Lr) 1,000 mls @ 100 mls/hr IVCONT .Q10H [facility] Last Admin: 07/02/24 08:22 Dose: 100 mls/hr Magnesium Hydroxide (Milk Of Magnesia 30 Ml Oral.Susp) 30 ml PO DAILY PRN PRN Reason: Constipation Melatonin (Melatonin 3 Mg Tablet) 6 mg PO BEDTIME PRN PRN Reason: Insomnia Morphine Sulfate (Morphine Sulfate 4 Mg/Ml Cartridge) 4 mg IVPUSH Q4H PRN; Protocol PRN Reason: Pain, Severe (Pain Scale 7-10) Last Admin: 07/02/24 06:21 Dose: 4 mg Omeprazole (Omeprazole 40 Mg Capsule.Dr) 40 mg PO BID@0630,1630 [facility] Last Admin: 07/02/24 06:26 Dose: Not Given Ondansetron HCl (Ondansetron Hcl 4 Mg/2 Ml Vial) 4 mg IVPUSH Q4H PRN PRN Reason: Nausea and Vomiting Last Admin: 07/02/24 06:20 Dose: 4 mg Sodium Chloride (0.9 % Sodium Chloride Flush 3 Ml Syringe) 3 ml IVFLUSH QSHIFT [facility] Last Admin: 07/02/24 08:20 Dose: Not Given Verapamil HCl (Verapamil Hcl Sr 240 Mg Tablet.Er) 240 mg PO DAILY [facility]; Protocol Last Admin: 07/02/24 08:31 Dose: Not Given Home Medications ?Medication ?Instructions ?Recorded ?Confirmed ?Last Taken ?Type verapamil 240 mg 24 hr 240 mg PO DAILY 11/27/21 07/01/24 06/30/24 History capsule,extended release omeprazole 40 mg capsule,delayed 40 mg PO BID@0630,1630 06/05/23 07/01/24 06/30/24 History release gabapentin 300 mg capsule 600 mg PO BID 11/18/23 07/01/24 06/30/24 History docusate sodium 100 mg tablet 100 mg PO BID 05/25/24 07/01/24 06/30/24 History multivitamin 1 tab PO DAILY 05/25/24 07/01/24 06/30/24 History Exam Height,Weight and Vital Signs: Height 5 ft 8 in Weight 76.2 kg Last Vital Signs Temp 97.6 F 07/02/24 08:00 Pulse 102 H 07/02/24 08:00 Resp 20 07/02/24 08:00 BP 122/82 07/02/24 08:00 Pulse Ox 93 07/02/24 08:00 O2 Del Method Nasal Cannula 07/02/24 08:00 O2 Flow Rate 2 07/02/24 08:00 Pertinent Lab Results Pertinent Lab Results: Laboratory Tests 07/01/24 07/02/24 04:05 06:41 WBC 10.9 H RBC 5.27 Hgb 14.9 Hct 44.7 MCV 84.8 MCH 28.3 MCHC 33.3 RDW 14.0 Plt Count 222 D MPV 10.5 Absolute Nucleated RBC 0.000 Nucleated RBC % (auto) 0.0 Hold Purple Top SEE NOTE Sodium 138 142 Potassium 3.9 4.3 Chloride 105 102 Carbon Dioxide 20 L 25 Anion Gap 17 19 BUN 12 26 H Creatinine 0.92 1.31 Estim Creat Clear Calc 61.9 43.5 Estimated GFR > 60 53 Random Glucose 132 H 133 H Calcium 9.6 9.5 Magnesium 2.5 Total Bilirubin 0.4 AST 22 ALT 11 Alkaline Phosphatase 134 H Troponin I High Sens < 2.7 Total Protein 7.0 Albumin 3.8 Lipase 14 Airway Mallampati Class: III TM Dist: >3cm Neck ROM: Limited Assessment and Plan Assessment Anesthesia Assessment: Anesthesia Plan Discussed and Chart Reviewed Final Anesthetic Review Family History of Problems with Anesthesia: No History of Problems with Anesthesia: No NPO: Yes ASA Class: III and Emergency Final Preanesthetic Review: No Changes in Pt Med Stat, Meds/Allgs Chart Reviewed, Consent Obtained/Reviewed, Anes Risks/Benef Reviewed and DNR Form (If Appl.) Patient Risk: Intermediate Procedure Risk: Intermediate Anesthetic Plan Anesthetic Plan: GA Disposition: Standard PACU
--- NOTE | 2024-07-02 12:39 | W.PM.OPN ---
Operative Note Operative Note Date of Service: 07/02/24 Narrative: Preoperative diagnosis: [] Complete small bowel obstruction Postop diagnosis: [] The same Procedure [] exploratory laparotomy, extensive enterolysis and adhesionolysis Surgeon: [] Remy Health Information Specialist: [] Sally Type of Anesthesia: [] General Indication for surgery: [] Complete small bowel obstruction. Patient was status post esophagogastrectomy with radiation therapy, open prostatectomy, appendectomy, supraumbilical ventral hernia repair with mesh in the past , who now presents with a complete all bowel obstruction. Intraoperative findings demonstrated extensive adhesions of the small bowel to the anterior abdominal wall and abdominal wall mesh. Patient had massively dilated proximal bowel to the site of obstruction. Bowel was decompressed normal caliber beyond the obstruction site. The obstruction site was a knuckle of small bowel adhered to the mesh which was twisted upon itself causing the complete obstruction. Findings: [] Patient brought to the operating room, placed on the operative table in the supine position, and after an adequate level of general anesthesia was induced, an NG tube was placed because this was unable to be placed preoperatively because of bleeding and distorted anatomy. Roughly 2 L of fluid/enteric con tense were retrieved from this. Under sterile technique a Dia catheter was then placed. Patient's abdomen was prepped and draped in usual sterile fashion. Using a midline incision encompassing both in upper and lower periumbilical incision which involve the scars from the patient's previous surgeries, this carried down through skin, subcutaneous tissue and linea alba. Posterior fascia and peritoneum were entered sharply and marked adhesions of small bowel to the anterior abdominal wall necessitating meticulous and prolonged enterolysis was undertaken sharply and with Bovie just to gain entry into the abdominal cavity. Once this was accomplished, further exploration and further adhesion takedown demonstrated the marked dilated proximal bowel and the transition point of the knuckle of bowel adhered to the abdominal wall mesh which was situated in the upper abdominal wall. This was taken down. This was the site of the obstruction. The Bowel dissected which was dissected out was run several times with no evidence of any enterotomies or transmural defects. Abdominal cavity was copiously irrigated and secured hemostasis. It was closed in the mass closure fascia using looped 1. PDS. Skin was closed using interrupted inverted dermal 3-0 Vicryl sutures followed by Steri-Strips and sterile dressings. Wound was infiltrated 0.5% Marcaine at completion. Sponge, needle, and instrument counts reported correct. Patient tolerated the procedure well and emerged from anesthesia stable condition. EBL minimal
[2024-07-02] MEDS: Lactated Ringers 1,000 ML 125 ML IVCONT (14:21)
[2024-07-02] MEDS: Furosemide 40 MG/4 ML VIAL IVPUSH (15:18)
[2024-07-02] MEDS: 0.9 % Sodium Chloride Flush 3 ML SYRINGE IVFLUSH (15:20)
[2024-07-02] MEDS: Acetaminophen 1,000 MG/100 ML PIGGYBACK 400 MG IV ×2 (15:59→22:43)
[2024-07-02 16:39] LABS: Appearance Urine Clear; Color Urine Yellow; Glucose Urine UA Negative (Negative); Leukocyte Esterase Urine Negative (Negative); Nitrite Urine Negative (Negative); UMIC TRIGGER UACC YES; Urine Blood Moderate (2+) (Negative); Urine Ketones Negative (Negative); Urine Protein Negative (Neg-Trace)
[2024-07-02 16:45] LABS: Bacteria Urine None Seen (None Seen); Hyaline Casts Urine 0-2 /LPF (0-2); Squamous Epithelial Cell Urine 0-2 /HPF (0-2); WBC Urine 0-5 /HPF (0-5)
--- NOTE | 2024-07-02 16:57 | PM.EVENT ---
Event Note Date of Service: 07/02/24 Event Note: postop noted to be hypoxic to 80s despite 15L Oxymask diffuse crackles gave 40mg IV Lasix, placed on HFNC, SaO2 now 96 transferred to IMC Time Spent With Patient Time: Total time managing care of this patient today ____ minutes.
--- NOTE | 2024-07-02 17:04 | PC.NURSE ---
this RN tried calling to inform about transfer from [facility] to [facility]
[2024-07-02 17:16] LABS: Influenza A PCR NEGATIVE (Negative); Influenza B PCR NEGATIVE (Negative); Resp Syncy Virus RNA Qual PCR NEGATIVE (Negative); SARS COV2 PCR INHOUSE NEGATIVE (Negative)
--- NOTE | 2024-07-02 22:25 | PC.NURSE ---
Oniel CHEUNG made this RN aware NG tube is coiled in esophagus and asked RN to replace, pt became vert upset stating he has had it done many times and its very painful, this RN and RN supervisor chemical at bedside to speak with pt, DR Alberto made aware stated to leave NG tube where it is.
[2024-07-03] VITALS (7 sets, daily range): BP systolic 115–156; BP diastolic 64–89; PULSE 96–106; RESP 16–20; TEMP 36.5–37.1; O2SAT 92–95
[2024-07-03] MEDS: Acetaminophen 1,000 MG/100 ML PIGGYBACK 400 MG IV ×4 (04:09→22:15)
[2024-07-03 07:11] LABS: Anion Gap 14 (12-20); Blood Urea Nitrogen 33 mg/dL (9-16); Calcium 8.3 mg/dL (8.4-10.2); Carbon Dioxide 27 mmol/L (22-29); Chloride 105 mmol/L (96-108); Creatinine Clr Calc Pharmacy 37.2; Estimated Glomerular Filt Rate 44; Glucose Random 100 mg/dL (60-115); Potassium 4.3 mmol/L (3.3-5.1); Sodium 142 mmol/L (135-145)
--- NOTE | 2024-07-03 09:45 | P.PNIM_ITS ---
Subjective Subjective Date of Service: 07/03/24 Interval History: discomfort from NG tube breathing improved; weaned off of HFNC to Oxymask abd discomfort Review of Systems Review of Systems: Yes all other systems are reviewed and are negative Physical Exam 2 Vital Signs: Vital Signs: Last Vital Signs Temp 97.8 F 07/03/24 08:00 Pulse 102 H 07/03/24 08:00 Resp 20 07/03/24 08:00 BP 115/64 07/03/24 08:00 Pulse Ox 94 07/03/24 08:00 O2 Del Method High Flow Nasal C annula 07/03/24 08:00 O2 Flow Rate 45 07/03/24 08:00 FiO2 30 07/03/24 08:00 BMI result Body Mass Index 25.5 Gen: in no acute distress HEENT: sclera anicteric, moist mucus membranes Neck: supple Lungs: inspiratory crackles Heart: regular rate and rhythm, no murmurs Abd: midline incision with dry dressing, NG tube in place Ext: no edema Skin: warm/well-perfused Neuro: alert and oriented x3, no focal findings Psych: appropriate affect Objective Data Active Medications Benzocaine (Throat Lozenge, Medicated Lozenge) 1 lozenge MUCOUS MEM Q2H PRN PRN Reason: Sore Throat Calcium Carbonate (Calcium Carbonate 750 Mg Tab.Chew) 750 mg PO Q4H PRN PRN Reason: Heartburn Last Admin: 07/02/24 00:42 Dose: 750 mg Documented By: TOM Enoxaparin Sodium (Enoxaparin Sodium 40 Mg/0.4 Ml Syringe) 40 mg SUBCUT Q24H [facility] Last Admin: 07/02/24 14:21 Dose: Not Given Documented By: EMILY Non-Admin Reason: Physician Held Med Gabapentin (Gabapentin 300 Mg Capsule) 600 mg PO BID [facility] Last Admin: 07/02/24 21:13 Dose: Not Given Documented By: PAYAL Non-Admin Reason: NPO Acetaminophen (Ofirmev) 1,000 mg in 100 mls @ 400 mls/hr IV Q6H [facility] Last Infusion: 07/03/24 04:37 Dose: Infused Documented By: PAYAL Melatonin (Melatonin 3 Mg Tablet) 6 mg PO BEDTIME PRN PRN Reason: Insomnia Metoclopramide HCl (Metoclopramide Hcl 10 Mg/2 Ml Vial) 10 mg IVPUSH Q6H PRN PRN Reason: Nausea and Vomiting Morphine Sulfate (Morphine Sulfate 4 Mg/Ml Cartridge) 4 mg IVPUSH Q4H PRN; Protocol PRN Reason: Pain, Severe (Pain Scale 7-10) Last Admin: 07/02/24 06:21 Dose: 4 mg Documented By: ROHAN Omeprazole (Omeprazole 40 Mg Capsule.Dr) 40 mg PO BID@0630,1630 [facility] Last Admin: 07/03/24 05:46 Dose: Not Given Documented By: PAYAL Non-Admin Reason: NPO Ondansetron HCl (Ondansetron Hcl 4 Mg/2 Ml Vial) 4 mg IVPUSH Q4H PRN PRN Reason: Nausea and Vomiting Last Admin: 07/02/24 16:00 Dose: 4 mg Documented By: BAILEY Sodium Chloride (0.9 % Sodium Chloride Flush 3 Ml Syringe) 3 ml IVFLUSH QSHIFT [facility] Last Admin: 07/03/24 00:36 Dose: Not Given Documented By: PAYAL Non-Admin Reason: IV Running Verapamil HCl (Verapamil Hcl Sr 240 Mg Tablet.Er) 240 mg PO DAILY [facility]; Protocol Last Admin: 07/02/24 08:31 Dose: Not Given Documented By: EMILY Non-Admin Reason: Nausea Labs 07/01/24 04:05 07/03/24 06:23 Labs: Laboratory Results - last 24 hr 07/02/24 07/02/24 07/03/24 16:08 16:20 06:23 Hold Purple Top SEE NOTE Anion Gap 14 Estim Creat Clear Calc 37.2 Estimated GFR 44 Random Glucose 100 Calcium 8.3 L D Urine Color Yellow Urine Appearance Clear Urine pH 5.0 Ur Specific Barre 1.010 Urine Protein Negative Urine Glucose (UA) Negative Urine Ketones Negative Urine Blood Moderate (2+) H Urine Nitrite Negative Ur Leukocyte Esterase Negative Urine RBC 6-10 H Urine WBC 0-5 Ur Squamous Epith Cells 0-2 Urine Bacteria None Seen Hyaline Casts 0-2 Influenza Type A (PCR) NEGATIVE Influenza Type B (PCR) NEGATIVE RSV RNA Qual (PCR) NEGATIVE SARS-CoV-2 RNA (RT-PCR) NEGATIVE Assessment and Plan (1) Small bowel obstruction: Status: Acute Plan d3 for 78yo M with 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], 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, prostate CA, peripheral neuropathy, HTN, GERD, and multiple SBOs presenting with N/V/abd pain and found to have high-grade SBO and went to OR 07/02 SBO - Surg consulted, due to worsening symptoms of high-grade obstruction, underwent exploratory laparotomy, extensive enterolysis and adhesionolysis by Dr Alberto 07/02 - NG tube management per Surgery AHRF - diuresed yesterday for pulmonary edema and was briefly on HFNC; currently on Oxymask; check BNP and TTE JUAN - suspect due to operation/anesthesia; will resume IV fluids cautiously and recheck BMP tomorrow dysphagia - [facility]PER evaluation once taking POs HTN - verapamil once taking POs peripheral neuropathy - continue gabapentin once taking POs GERD - PPI IV VTE prophylaxis - enoxaparin dispo - TBD In my clinical judgment, the patient requires continued inpatient hospitalization for the following reasons: postop care, JUAN, IV fluids, NPO Total time managing care of this patient today: 40 minutes. Quality Stroke Does the patient have a stroke diagnosis?: No VTE Prior VTE?: No VTE Risk Level:: Medical - moderate - high VTE Device Contraindication: Treatment Not Indicated VTE Drug Contraindication: N/A - Med Ordered
--- NOTE | 2024-07-03 09:50 | PC.NURSE ---
per Dr. Alberto, NG tube removed
[2024-07-03] MEDS: 0.9 % Sodium Chloride Flush 3 ML SYRINGE IVFLUSH ×3 (10:44→20:19)
[2024-07-03] MEDS: Pantoprazole Sodium 40 MG/10 ML VIAL IVPUSH ×2 (10:44→16:25)
[2024-07-03] MEDS: Lactated Ringers 1,000 ML 100 ML IVCONT ×2 (10:51→20:03)
--- NOTE | 2024-07-03 14:53 | MHC.CM.PN ---
IMM 07/03/24, Pt lives with his , he is independent, no home health services or DME. HCP on file and confirmed: Garcia. PCP confirmed: Dr. Hirsch. Son to transport home at DC. DCP: home, self care. CM to follow for DC needs.
--- NOTE | 2024-07-03 15:54 | P.PNGS_ITS ---
Subjective Subjective Date of Service: 07/03/24 Interval history: All things considered, patient is doing well. His vital signs are stable. He is making good urine. Aside from incisional discomfort he is doing fairly well. He has minimal respiratory issues. Physical Exam 2 Vital Signs: Vital Signs: Last Vital Signs Temp 98.7 F 07/03/24 11:49 Pulse 103 H 07/03/24 11:49 Resp 20 07/03/24 11:49 BP 136/70 07/03/24 11:49 Pulse Ox 94 07/03/24 11:49 O2 Del Method High Flow Nasal C annula 07/03/24 11:49 O2 Flow Rate 45 07/03/24 11:49 FiO2 30 07/03/24 11:49 BMI result Body Mass Index 25.5 GI: Other: Abdomen is soft. Incision clean dry and intact Objective Data Active Medications Benzocaine (Throat Lozenge, Medicated Lozenge) 1 lozenge MUCOUS MEM Q2H PRN PRN Reason: Sore Throat Calcium Carbonate (Calcium Carbonate 750 Mg Tab.Chew) 750 mg PO Q4H PRN PRN Reason: Heartburn Last Admin: 07/02/24 00:42 Dose: 750 mg Documented By: TOM Enoxaparin Sodium (Enoxaparin Sodium 40 Mg/0.4 Ml Syringe) 40 mg SUBCUT Q24H [facility] Last Admin: 07/02/24 14:21 Dose: Not Given Documented By: EMILY Non-Admin Reason: Physician Held Med Gabapentin (Gabapentin 300 Mg Capsule) 600 mg PO BID [facility] Last Admin: 07/03/24 09:53 Dose: Not Given Documented By: PAUL Non-Admin Reason: NPO Acetaminophen (Ofirmev) 1,000 mg in 100 mls @ 400 mls/hr IV Q6H [facility] Last Infusion: 07/03/24 11:25 Dose: Infused Documented By: PAUL Lactated Ringer's (Lr) 1,000 mls @ 100 mls/hr IVCONT .Q10H [facility] Last Admin: 07/03/24 10:51 Dose: 100 mls/hr Documented By: PAUL Melatonin (Melatonin 3 Mg Tablet) 6 mg PO BEDTIME PRN PRN Reason: Insomnia Metoclopramide HCl (Metoclopramide Hcl 10 Mg/2 Ml Vial) 10 mg IVPUSH Q6H PRN PRN Reason: Nausea and Vomiting Morphine Sulfate (Morphine Sulfate 4 Mg/Ml Cartridge) 4 mg IVPUSH Q4H PRN; Protocol PRN Reason: Pain, Severe (Pain Scale 7-10) Last Admin: 07/02/24 06:21 Dose: 4 mg Documented By: ROHAN Ondansetron HCl (Ondansetron Hcl 4 Mg/2 Ml Vial) 4 mg IVPUSH Q4H PRN PRN Reason: Nausea and Vomiting Last Admin: 07/02/24 16:00 Dose: 4 mg Documented By: BAILEY Pantoprazole Sodium (Pantoprazole Sodium 40 Mg/10 Ml Vial) 40 mg IVPUSH BID@0630,1630 [facility] Last Admin: 07/03/24 10:44 Dose: 40 mg Documented By: PAUL Sodium Chloride (0.9 % Sodium Chloride Flush 3 Ml Syringe) [facility] Last Admin: 07/03/24 10:44 Dose: 3 ml Documented By: PAUL Verapamil HCl (Verapamil Hcl Sr 240 Mg Tablet.Er) 240 mg PO DAILY [facility]; Protocol Last Admin: 07/03/24 09:53 Dose: Not Given Documented By: PAUL Non-Admin Reason: NPO Labs 07/01/24 04:05 07/03/24 06:23 Labs: Laboratory Results - last 24 hr 07/02/24 07/02/24 07/03/24 16:08 16:20 06:23 Hold Purple Top SEE NOTE Anion Gap 14 Estim Creat Clear Calc 37.2 Estimated GFR 44 Random Glucose 100 Calcium 8.3 L D Urine Color Yellow Urine Appearance Clear Urine pH 5.0 Ur Specific [place] 1.010 Urine Protein Negative Urine Glucose (UA) Negative Urine Ketones Negative Urine Blood Moderate (2+) H Urine Nitrite Negative Ur Leukocyte Esterase Negative Urine RBC 6-10 H Urine WBC 0-5 Ur Squamous Epith Cells 0-2 Urine Bacteria None Seen Hyaline Casts 0-2 Influenza Type A (PCR) NEGATIVE Influenza Type B (PCR) NEGATIVE RSV RNA Qual (PCR) NEGATIVE SARS-CoV-2 RNA (RT-PCR) NEGATIVE Procedures Date of Service Date of Service: 07/03/24 Progress Note: A&P Assessment and plan (1) Postop check: Status: Acute Plan Patient had insisted on having NG tube removed. This was done. Current plan is to encourage incentive spirometry, out of bed to chair if possible, ice pack to wound, ice chips only. Time Spent With Patient Time: Total time managing care of this patient today ____ minutes. Quality Stroke Does the patient have a stroke diagnosis?: No VTE Prior VTE?: No VTE Risk Level:: Medical - moderate - high VTE Device Contraindication: Treatment Not Indicated VTE Drug Contraindication: N/A - Med Ordered
--- NOTE | 2024-07-03 16:32 | HO.POSTANES ---
Post Anesthesia Evaluation Post Anesthesia Evaluation Date of Service: 07/03/24 Vital Signs: Vital Signs Temp Pulse Resp BP Pulse Ox O2 Del Method O2 Flow Rate 07/03/24 16:00 97.7 F 106 H 20 119/89 92 High Flow Nasal Cannula 45 07/03/24 11:49 98.7 F 103 H 20 136/70 94 High Flow Nasal Cannula 45 07/03/24 08:00 97.8 F 102 H 20 115/64 94 High Flow Nasal Cannula 45 FiO2 07/03/24 16:00 30 07/03/24 11:49 30 07/03/24 08:00 30 Anesthesia: General Endotracheal-GETA Mental Status: Awake Pain Control: Satisfactory Nausea/Vomiting: None Hydration: Adequate Anesthesia-Related Issues: No Anes. Related Issues
[2024-07-04] VITALS (10 sets, daily range): BP systolic 160–180; BP diastolic 77–83; PULSE 74–90; RESP 14–22; TEMP 36.4–37.2; O2SAT 9–98
[2024-07-04] MEDS: Acetaminophen 1,000 MG/100 ML PIGGYBACK 400 MG IV ×4 (03:04→22:36)
[2024-07-04] MEDS: Lactated Ringers 1,000 ML 100 ML IVCONT (03:09)
[2024-07-04] MEDS: Pantoprazole Sodium 40 MG/10 ML VIAL IVPUSH (05:37)
[2024-07-04 06:41] LABS: Hematocrit 36.6 % (42.0-52.0); Hemoglobin 11.7 g/dl (14.0-18.0); Mean Corpuscular Hemoglobin 28.3 pg (27.0-33.0); Mean Corpuscular Volume 88.6 fL (80.0-98.0); Mean Platelet Volume 11.3 fL (9.4-12.4); Platelet Count 183 X10*3/uL (160-400); Red Blood Count 4.13 X10*6/uL (4.60-5.80); Red Cell Distribution Width 14.4 % (11.0-16.0); White Blood Count 15.9 X10*3/uL (4.8-10.8)
[2024-07-04 06:52] LABS: Anion Gap 12 (12-20); Blood Urea Nitrogen 26 mg/dL (9-16); Calcium 9.1 mg/dL (8.4-10.2); Carbon Dioxide 26 mmol/L (22-29); Chloride 107 mmol/L (96-108); Estimated Glomerular Filt Rate > 60; Glucose Random 86 mg/dL (60-115); Potassium 3.9 mmol/L (3.3-5.1); Sodium 141 mmol/L (135-145)
[2024-07-04 06:56] LABS: B Type Natriuretic Peptide 54 pg/mL (<100)
--- NOTE | 2024-07-04 07:00 | CA_ITS ---
Transthoracic Echocardiogram Patient (Last, First, Middle): Yoseph Orellana L Gender: Male Date of : 1945 Age: 78 Procedure Date: 07/04/2024 Procedure Type: Transthoracic Echocardiogram Location: [facility] [place] Height: 172.72 cm Weight: 75.75 kg BSA: 1.89 m2 Heart Rate: 98 bpm BP: 160 / 80 mmHg [employer] Lab Manager: Referring MD: Gamaliel Gilbert MD Symptoms: pulmonary edema Study Quality: Fair ECG Rhythm: Sinus Conclusions: - The left ventricular systolic function is normal. The calculated ejection fraction is 57% by biplane method. - No obvious valvular pathology seen on this study. Findings Left Ventricle Normal left ventricular cavity size. There is normal left ventricular wall thickness. The left ventricular systolic function is normal. The calculated ejection fraction is 57% by biplane method. There is no evidence of regional wall motion abnormalities. Evidence suggests grade I (mild) diastolic dysfunction. Right Ventricle Normal right ventricular cavity size and systolic function. Atria Both atria are normal in size. Aortic Valve There is mild calcification of the aortic valve. There is no aortic valve stenosis. Trace to mild aortic regurgitation. Mitral Valve The mitral valve appears normal. There is no mitral valve regurgitation. There is no mitral valve stenosis. Pulmonic Valve The pulmonic valve is likely normal. Tricuspid Valve There is trace tricuspid valve regurgitation. There is no evidence of pulmonary hypertension. Great Vessels The asc aorta is normal in size. Venous The inferior vena cava is normal in size and collapses greater than 50% with inspiration. Pericardium/Pleural There is no evidence of pericardial effusion. Prior Study Comparison No prior study available for comparison. Recommendations, Care & Conclusions No obvious valvular pathology seen on this study. Measurements 2D Linear Measurements IVSd: 0.96 0.6-0.9/0.6-1.0 cm LVIDd: 3.84 3.9-5.3/4.2-5.9 cm LVIDd Index: 2.03 2.4-3.2/2.2-3.1 cm/m2 LVIDs: 2.57 2.0-3.6 cm LVPWd: 1.02 0.7-1.1 cm LA Diam: 2.80 2.7-3.8/3.0-4.0 cm LAIDs Index: 1.48 1.5-2.3 cm/m2 LV Mass: 145.71 67-162/88-224 g LV Mass Index: 77.10 43-95/49-115 g/m2 LVOT Diam: 2.00 3.0+(-)1.3 cm 2D Systolic Function EF 4C: 60.40 >55% EF 2C: 53.10 >55% EF BiP: 56.60 >55% Mitral Valve MV Pk E: 0.73 MV PK A: 1.20 MV Decel Time: 114.00 E/A: 0.60 E'Lateral: 10.20 E'Medial: 5.87 E/E' Med: 12.40 E/E' Lat: 7.10 PHT: 33.00 MVA PHT: 6.67 Decel Vermillion: 6.41 Aortic Valve AoV Pk Jenaro: 1.87 AoV Mn Jenaro: 1.20 AoV VTI: 0.37 AoV Pk Grad: 14.00 Aov Mn Grad: 7.00 ESAU Cont.VTI: 1.80 AI Pk Jenaro: 5.21 AI Vermillion: 5.68 LVOT LVOT Pk Jenaro: 1.09 LVOT Mn Jenaro: 0.71 LVOT VTI: 0.21 LVOT Pk Grad: 5.00 LVOT Mn Grad: 3.00 LVOT Diam: 2.00 LVOT Area: 3.14 Diastolic Function MV Pk E: 0.73 MV Pk A: 1.20 E/A: 0.60 E'Medial: 5.87 E/E' Med: 12.40 E' Laterial: 10.20 E/E' Lat: 7.10 Right Ventricle TAPSE (mm): 23.90 TVS' Jenaro: 19.10 Tricuspid Valve TR Pk Jenaro: 2.52 TR Pk Grad: 25.00 Great Vessels Aorta Sinus of Valsalva: 3.70 2.0-3.5 cm Ao Asc: 3.40 2.1-3.4 cm Pulmonary Valve PV Pk Jenaro: 0.94 Peak PV Grad: 4.00 Updated in Other Vendor System with Status of Final Oswald You MD electronically signed on 07/04/2024 4:31:30 PM with status of Final
[2024-07-04] MEDS: 0.9 % Sodium Chloride Flush 3 ML SYRINGE IVFLUSH ×3 (09:37→22:34)
--- NOTE | 2024-07-04 11:57 | P.PNIM_ITS ---
Subjective Subjective Date of Service: 07/04/24 Interval History: no dyspnea had a BM abd pain controlled Review of Systems Review of Systems: Yes all other systems are reviewed and are negative Physical Exam 2 Vital Signs: Vital Signs: Last Vital Signs Temp 98.9 F 07/04/24 11:28 Pulse 77 07/04/24 11:28 Resp 17 07/04/24 11:28 BP 169/78 H 07/04/24 11:28 Pulse Ox 98 07/04/24 11:28 O2 Del Method Nasal Cannula 07/04/24 11:28 O2 Flow Rate 6 07/04/24 11:28 FiO2 30 07/03/24 16:00 BMI result Body Mass Index 25.5 Gen: in no acute distress HEENT: sclera anicteric, moist mucus membranes Neck: supple Lungs: clear bilaterally Heart: regular rate and rhythm, no murmurs Abd: midline incision with dry dressing, active bowel sounds Ext: no edema Skin: warm/well-perfused Neuro: alert and oriented x3, no focal findings Psych: appropriate affect Objective Data Active Medications Benzocaine (Throat Lozenge, Medicated Lozenge) 1 lozenge MUCOUS MEM Q2H PRN PRN Reason: Sore Throat Calcium Carbonate (Calcium Carbonate 750 Mg Tab.Chew) 750 mg PO Q4H PRN PRN Reason: Heartburn Last Admin: 07/02/24 00:42 Dose: 750 mg Documented By: TOM Enoxaparin Sodium (Enoxaparin Sodium 40 Mg/0.4 Ml Syringe) 40 mg SUBCUT Q24H [facility] Last Admin: 07/02/24 14:21 Dose: Not Given Documented By: EMILY Non-Admin Reason: Physician Held Med Gabapentin (Gabapentin 300 Mg Capsule) 600 mg PO BID [facility] Last Admin: 07/03/24 09:53 Dose: Not Given Documented By: PAUL Non-Admin Reason: NPO Acetaminophen (Ofirmev) 1,000 mg in 100 mls @ 400 mls/hr IV Q6H [facility] Last Infusion: 07/04/24 10:01 Dose: Infused Documented By: LIANE Melatonin (Melatonin 3 Mg Tablet) 6 mg PO BEDTIME PRN PRN Reason: Insomnia Metoclopramide HCl (Metoclopramide Hcl 10 Mg/2 Ml Vial) 10 mg IVPUSH Q6H PRN PRN Reason: Nausea and Vomiting Morphine Sulfate (Morphine Sulfate 4 Mg/Ml Cartridge) 4 mg IVPUSH Q4H PRN; Protocol PRN Reason: Pain, Severe (Pain Scale 7-10) Last Admin: 07/02/24 06:21 Dose: 4 mg Documented By: ROHAN Ondansetron HCl (Ondansetron Hcl 4 Mg/2 Ml Vial) 4 mg IVPUSH Q4H PRN PRN Reason: Nausea and Vomiting Last Admin: 07/02/24 16:00 Dose: 4 mg Documented By: BAILEY Pantoprazole Sodium (Pantoprazole Sodium 40 Mg/10 Ml Vial) 40 mg IVPUSH BID@0630,1630 [facility] Last Admin: 07/04/24 05:37 Dose: 40 mg Documented By: TARA Sodium Chloride (0.9 % Sodium Chloride Flush 3 Ml Syringe) 3 ml IVFLUSH QSHIFT [facility] Last Admin: 07/04/24 09:37 Dose: 3 ml Documented By: LIANE Verapamil HCl (Verapamil Hcl Sr 240 Mg Tablet.Er) 240 mg PO DAILY [facility]; Protocol Last Admin: 07/03/24 09:53 Dose: Not Given Documented By: PAUL Non-Admin Reason: NPO Labs 07/04/24 06:11 07/04/24 06:11 Labs: Laboratory Results - last 24 hr 07/04/24 06:11 MCV 88.6 MCH 28.3 MCHC 32.0 RDW 14.4 Plt Count 183 MPV 11.3 Absolute Nucleated RBC 0.000 Nucleated RBC % (auto) 0.0 Anion Gap 12 Estim Creat Clear Calc 67.0 Estimated GFR > 60 Random Glucose 86 Calcium 9.1 D B-Natriuretic Peptide 54 Assessment and Plan (1) Small bowel obstruction: Status: Acute Plan d4 for 78yo M with 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], 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, prostate CA, peripheral neuropathy, HTN, GERD, and multiple SBOs presenting with N/V/abd pain and found to have high-grade SBO and went to OR 07/02 SBO - underwent exploratory laparotomy, extensive enterolysis and adhesionolysis by Dr Alberto 07/02 - NGT out 07/03, advance to clear liquids today, PT eval AHRF - diuresed postop for pulmonary edema and was briefly on HFNC; currently on Oxymask and continue to wean; TTE pending; BNP normal JUAN - suspect due to operation/anesthesia; resolved after IV fluid hydration dysphagia - COMMUNICATIONS LEAD evaluation once on solids HTN - resume verapamil peripheral neuropathy - resume gabapentin GERD - PPI change IV to PO VTE prophylaxis - enoxaparin dispo - TBD In my clinical judgment, the patient requires continued inpatient hospitalization for the following reasons: postop care, JUAN, IV fluids, NPO Total time managing care of this patient today: 40 minutes. Quality Stroke Does the patient have a stroke diagnosis?: No VTE Prior VTE?: No VTE Risk Level:: Medical - moderate - high VTE Device Contraindication: Treatment Not Indicated VTE Drug Contraindication: N/A - Med Ordered
[2024-07-04] MEDS: Morphine Sulfate 4 MG/ML CARTRIDGE IVPUSH ×2 (13:59→22:25)
[2024-07-04] MEDS: Enoxaparin Sodium 40 MG/0.4 ML SYRINGE SUBCUT (13:59)
--- NOTE | 2024-07-04 14:24 | MHC.CM.PN ---
EMR reviewed and per MD rounds, pt is not medically cleared for discharge due to pending PT eval and diet advancement.
[2024-07-04] MEDS: Labetalol HCL 100 MG/20 ML VIAL IVPUSH (22:54)
[2024-07-05] VITALS (8 sets, daily range): BP systolic 157–178; BP diastolic 76–90; PULSE 71–84; RESP 16–20; TEMP 36.9–37.1; O2SAT 92–97
[2024-07-05 06:57] LABS: Hematocrit 34.6 % (42.0-52.0); Hemoglobin 11.3 g/dl (14.0-18.0); Mean Corpuscular HGB Conc 32.7 g/dl (31.0-36.0); Mean Corpuscular Hemoglobin 28.4 pg (27.0-33.0); Mean Corpuscular Volume 86.9 fL (80.0-98.0); Mean Platelet Volume 11.1 fL (9.4-12.4); Platelet Count 187 X10*3/uL (160-400); Red Blood Count 3.98 X10*6/uL (4.60-5.80); Red Cell Distribution Width 14.4 % (11.0-16.0); White Blood Count 12.9 X10*3/uL (4.8-10.8)
[2024-07-05 07:14] LABS: Anion Gap 15 (12-20); Blood Urea Nitrogen 21 mg/dL (9-16); Calcium 9.2 mg/dL (8.4-10.2); Carbon Dioxide 26 mmol/L (22-29); Chloride 107 mmol/L (96-108); Creatinine Clr Calc Pharmacy 79.1; Estimated Glomerular Filt Rate > 60; Glucose Random 84 mg/dL (60-115); Potassium 3.8 mmol/L (3.3-5.1); Sodium 144 mmol/L (135-145)
[2024-07-05] MEDS: 0.9 % Sodium Chloride Flush 3 ML SYRINGE IVFLUSH ×2 (09:20→20:22)
[2024-07-05] MEDS: Acetaminophen 1,000 MG/100 ML PIGGYBACK 400 MG IV (09:20)
--- NOTE | 2024-07-05 09:57 | P.PNGS_ITS ---
Subjective Subjective Date of Service: 07/05/24 Interval history: Continues to pass flatus, have BMs. Did not have any liquids yesterday per patient. Refusing to have liquids, reported difficulty swallowing prior and does not want to try them. He is willing to try the small ice chips but not the large ice chips as last time he had these he vomited. He still has yet to get OOB. Using incentive spirometer well. Denies SOB. Physical Exam 2 Vital Signs: Vital Signs: Last Vital Signs Temp 98.6 F 07/05/24 07:34 Pulse 78 07/05/24 07:34 Resp 20 07/05/24 07:34 BP 158/76 H 07/05/24 07:34 Pulse Ox 92 07/05/24 07:34 O2 Del Method Nasal Cannula 07/05/24 07:34 O2 Flow Rate 4 07/05/24 07:34 FiO2 30 07/03/24 16:00 BMI result Body Mass Index 25.5 Const: General: comfortable, no acute distress and alert O rientation/consciousness: patient oriented x3 Resp: Effort & Inspection: no respiratory distress, not tachypneic and no use of accessory muscles GI: Inspection: No distended and Yes incision (clean) Palpation (GI): Soft to palpation, Tenderness to palpation present (GI) (mild incisional) and no guarding Skin: General skin exam: no rashes or lesions noted Neuro: General: patient oriented x3 and moves all extremities Objective Data Active Medications Benzocaine (Throat Lozenge, Medicated Lozenge) 1 lozenge MUCOUS MEM Q2H PRN PRN Reason: Sore Throat Calcium Carbonate (Calcium Carbonate 750 Mg Tab.Chew) 750 mg PO Q4H PRN PRN Reason: Heartburn Last Admin: 07/02/24 00:42 Dose: 750 mg Documented By: TOM Enoxaparin Sodium (Enoxaparin Sodium 40 Mg/0.4 Ml Syringe) 40 mg SUBCUT Q24H [facility] Last Admin: 07/04/24 13:59 Dose: 40 mg Documented By: LIANE Gabapentin (Gabapentin 300 Mg Capsule) 600 mg PO BID [facility] Last Admin: 07/05/24 09:18 Dose: Not Given Documented By: SVETLANA Non-Admin Reason: NPO Acetaminophen (Ofirmev) 1,000 mg in 100 mls @ 400 mls/hr IV Q6H [facility] Last Infusion: 07/05/24 09:35 Dose: Infused Documented By: SVETLANA Melatonin (Melatonin 3 Mg Tablet) 6 mg PO BEDTIME PRN PRN Reason: Insomnia Morphine Sulfate (Morphine Sulfate 4 Mg/Ml Cartridge) 4 mg IVPUSH Q4H PRN; Protocol PRN Reason: Pain, Severe (Pain Scale 7-10) Last Admin: 07/04/24 22:25 Dose: 4 mg Documented By: MACIEL Omeprazole (Omeprazole 40 Mg Capsule.Dr) 40 mg PO BID@0630,1630 [facility] Last Admin: 07/05/24 04:53 Dose: Not Given Documented By: MACIEL Non-Admin Reason: NPO Ondansetron HCl (Ondansetron Hcl 4 Mg/2 Ml Vial) 4 mg IVPUSH Q4H PRN PRN Reason: Nausea and Vomiting Last Admin: 07/02/24 16:00 Dose: 4 mg Documented By: BAILEY Sodium Chloride (0.9 % Sodium Chloride Flush 3 Ml Syringe) [facility] Admin: 07/05/24 09:20 Dose: 3 ml Documented By: SVETLANA Verapamil HCl (Verapamil Hcl Sr 240 Mg Tablet.Er) 240 mg PO DAILY [facility]; Protocol Last Admin: 07/05/24 09:19 Dose: Not Given Documented By: SVETLANA Non-Admin Reason: NPO Labs 07/05/24 06:45 07/05/24 06:45 Labs: Laboratory Results - last 24 hr 07/05/24 06:45 MCV 86.9 MCH 28.4 MCHC 32.7 RDW 14.4 Plt Count 187 MPV 11.1 Absolute Nucleated RBC 0.000 Nucleated RBC % (auto) 0.0 Anion Gap 15 Estim Creat Clear Calc 79.1 Estimated GFR > 60 Random Glucose 84 Calcium 9.2 Procedures Date of Service Date of Service: 07/05/24 Progress Note: A&P Assessment and plan (1) Small bowel obstruction: Status: Acute (2) S/P exploratory laparotomy: Status: Acute Plan POD #3 s/p exploratory laparotomy, extensive enterolysis and adhesionolysis for complete SBO. Now with evidence of GI function. Can advance diet as tolerated. ?Swallow eval given his report of dysphagia and inability to advance diet per patients refusal. It was again discussed need to get OOB at least to recliner today and attempt to ambulate, increase activity. He is in agreement. This was discussed with RN. Time Spent With Patient Time: Total time managing care of this patient today ____ minutes. Quality Stroke Does the patient have a stroke diagnosis?: No VTE Prior VTE?: No VTE Risk Level:: Medical - moderate - high VTE Device Contraindication: Treatment Not Indicated VTE Drug Contraindication: N/A - Med Ordered
--- NOTE | 2024-07-05 11:11 | HO.PM.IMPN ---
Subjective Subjective Date of Service: 07/05/24 Interval History: breathing improved c/o abd pain passing gas Review of Systems Review of Systems: Yes all other systems are reviewed and are negative Physical Exam Vital Signs: Vital Signs: Last Vital Signs Temp 98.8 F 07/05/24 10:51 Pulse 74 07/05/24 10:51 Resp 18 07/05/24 10:51 BP 166/80 H 07/05/24 10:51 Pulse Ox 96 07/05/24 10:51 O2 Del Method Nasal Cannula 07/05/24 10:51 O2 Flow Rate 4 07/05/24 10:51 FiO2 30 07/03/24 16:00 BMI result Body Mass Index 25.5 Gen: in no acute distress HEENT: sclera anicteric, moist mucus membranes Neck: supple Lungs: clear bilaterally Heart: regular rate and rhythm, no murmurs Abd: midline incision with dry dressing, active bowel sounds Ext: no edema Skin: warm/well-perfused Neuro: alert and oriented x3, no focal findings Psych: appropriate affect Objective Data Active Medications Benzocaine (Throat Lozenge, Medicated Lozenge) 1 lozenge MUCOUS MEM Q2H PRN PRN Reason: Sore Throat Calcium Carbonate (Calcium Carbonate 750 Mg Tab.Chew) 750 mg PO Q4H PRN PRN Reason: Heartburn Last Admin: 07/02/24 00:42 Dose: 750 mg Documented By: TOM Enoxaparin Sodium (Enoxaparin Sodium 40 Mg/0.4 Ml Syringe) 40 mg SUBCUT Q24H [facility] Last Admin: 07/04/24 13:59 Dose: 40 mg Documented By: LIANE Gabapentin (Gabapentin 300 Mg Capsule) 600 mg PO BID [facility] Last Admin: 07/05/24 09:18 Dose: Not Given Documented By: SVETLANA Non-Admin Reason: NPO Acetaminophen (Ofirmev) 1,000 mg in 100 mls @ 400 mls/hr IV Q6H [facility] Last Infusion: 07/05/24 09:35 Dose: Infused Documented By: SVETLANA Melatonin (Melatonin 3 Mg Tablet) 6 mg PO BEDTIME PRN PRN Reason: Insomnia Morphine Sulfate (Morphine Sulfate 4 Mg/Ml Cartridge) 4 mg IVPUSH Q4H PRN; Protocol PRN Reason: Pain, Severe (Pain Scale 7-10) Last Admin: 07/04/24 22:25 Dose: 4 mg Documented By: MACIEL Omeprazole (Omeprazole 40 Mg Capsule.) 40 mg PO BID@0630,1630 [facility] Last Admin: 07/05/24 04:53 Dose: Not Given Documented By: MACIEL Non-Admin Reason: NPO Ondansetron HCl (Ondansetron Hcl 4 Mg/2 Ml Vial) 4 mg IVPUSH Q4H PRN PRN Reason: Nausea and Vomiting Last Admin: 07/02/24 16:00 Dose: 4 mg Documented By: BAILEY Sodium Chloride (0.9 % Sodium Chloride Flush 3 Ml Syringe) 3 ml IVFLUSH QSHIFT [facility] Last Admin: 07/05/24 09:20 Dose: 3 ml Documented By: SVETLANA Verapamil HCl (Verapamil Hcl Sr 240 Mg Tablet.Er) 240 mg PO DAILY [facility]; Protocol Last Admin: 07/05/24 09:19 Dose: Not Given Documented By: SVETLANA Non-Admin Reason: NPO Labs 07/05/24 06:45 07/05/24 06:45 Labs: Laboratory Results - last 24 hr 07/05/24 06:45 MCV 86.9 MCH 28.4 MCHC 32.7 RDW 14.4 Plt Count 187 MPV 11.1 Absolute Nucleated RBC 0.000 Nucleated RBC % (auto) 0.0 Anion Gap 15 Estim Creat Clear Calc 79.1 Estimated GFR > 60 Random Glucose 84 Calcium 9.2 Assessment and Plan (1) Small bowel obstruction: Status: Acute Plan d5 for 78yo M with 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], 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, prostate CA, peripheral neuropathy, HTN, GERD, and multiple SBOs presenting with N/V/abd pain and found to have high-grade SBO and went to OR 07/02 SBO - underwent exploratory laparotomy, extensive enterolysis and adhesionolysis by Dr Alberto 07/02 - NGT out 07/03, may advance diet surgically but has dysphagia and undergoing MBSS dysphagia - 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 The calculated ejection fraction is 57% by biplane method. - No obvious valvular pathology seen on this study JUAN - suspect due to operation/anesthesia; resolved after IV fluid hydration HTN - resume verapamil when taking POs peripheral neuropathy - resume gabapentin when taking POs GERD - PPI VTE prophylaxis - enoxaparin dispo - PT eval: STR In my clinical judgment, the patient requires continued inpatient hospitalization for the following reasons: dysphagia Total time managing care of this patient today: 40 minutes. Quality Stroke Does the patient have a stroke diagnosis?: No VTE Prior VTE?: No VTE Risk Level:: Medical - moderate - high VTE Device Contraindication: Treatment Not Indicated VTE Drug Contraindication: N/A - Med Ordered
--- NOTE | 2024-07-05 12:09 | MHC.SLORD ---
Speech Language Pathology Order Status: Per RN, Pt not responding to sternal rub or light pain. Not appropriate for PO trials at this time. Please contact RECORD KEEPER if more alter this afternoon.
--- NOTE | 2024-07-05 12:23 | MHC.SLORD ---
Speech Language Pathology Order Status: Per RN, Pt NPO for procedure. AIR DRIER continuing to follow. Has only been on Clear Liquids to this point.
[2024-07-05] MEDS: Enoxaparin Sodium 40 MG/0.4 ML SYRINGE SUBCUT (15:12)
[2024-07-05] MEDS: Lactated Ringers 1,000 ML 80 ML IVCONT (15:13)
[2024-07-05] MEDS: Morphine Sulfate 4 MG/ML CARTRIDGE IVPUSH (20:46)
[2024-07-06] VITALS (11 sets, daily range): BP systolic 162–194; BP diastolic 76–92; PULSE 71–79; RESP 17–20; TEMP 36.2–37.2; O2SAT 91–97
--- NOTE | 2024-07-06 00:37 | PM.EVENT ---
Event Note Date of Service: 07/06/24 Event Note: Pt with HTN episode again tonight, same last night. BP 178/80, not taking regular PO meds as he is NPO, order placed for IV labetalol 5mg again. Time Spent With Patient Time: Total time managing care of this patient today ____ minutes.
[2024-07-06] MEDS: Labetalol HCL 100 MG/20 ML VIAL IVPUSH (01:11)
[2024-07-06] MEDS: Lactated Ringers 1,000 ML 80 ML IVCONT ×2 (01:14→17:36)
[2024-07-06] MEDS: Morphine Sulfate 4 MG/ML CARTRIDGE IVPUSH ×2 (01:19→17:33)
[2024-07-06] MEDS: Labetalol HCL 100 MG/20 ML VIAL 10 MG IVPUSH (04:46)
--- NOTE | 2024-07-06 08:41 | P.PNGS_ITS ---
Subjective Subjective Date of Service: 07/06/24 Interval history: Uneventful evening. Patient is still afraid to take any oral intake in his just sucking on ice cubes. He is not beginning up out of bed. He is doing his incentive spirometer Physical Exam 2 Vital Signs: Vital Signs: Last Vital Signs Temp 98.8 F 07/06/24 07:43 Pulse 75 07/06/24 07:43 Resp 20 07/06/24 07:43 BP 178/81 H 07/06/24 07:43 Pulse Ox 92 07/06/24 07:43 O2 Del Method Nasal Cannula 07/06/24 07:43 O2 Flow Rate 4 07/06/24 07:43 FiO2 30 07/03/24 16:00 BMI result Body Mass Index 25.5 GI: Other: Abdomen is soft. Incision clean dry and intact healing well Objective Data Active Medications Benzocaine (Throat Lozenge, Medicated Lozenge) 1 lozenge MUCOUS MEM Q2H PRN PRN Reason: Sore Throat Calcium Carbonate (Calcium Carbonate 750 Mg Tab.Chew) 750 mg PO Q4H PRN PRN Reason: Heartburn Last Admin: 07/02/24 00:42 Dose: 750 mg Documented By: TOM Enoxaparin Sodium (Enoxaparin Sodium 40 Mg/0.4 Ml Syringe) 40 mg SUBCUT Q24H [facility] Last Admin: 07/05/24 15:12 Dose: 40 mg Documented By: SVETLANA Gabapentin (Gabapentin 300 Mg Capsule) 600 mg PO BID [facility] Last Admin: 07/06/24 08:41 Dose: Not Given Documented By: MIKI Non-Admin Reason: NPO Lactated Ringer's (Lr) 1,000 mls @ 80 mls/hr IVCONT .[id number] [facility] Last Admin: 07/06/24 01:14 Dose: 80 mls/hr Documented By: NAHEED Melatonin (Melatonin 3 Mg Tablet) 6 mg PO BEDTIME PRN PRN Reason: Insomnia Morphine Sulfate (Morphine Sulfate 4 Mg/Ml Cartridge) 4 mg IVPUSH Q4H PRN; Protocol PRN Reason: Pain, Severe (Pain Scale 7-10) Last Admin: 07/06/24 01:19 Dose: 4 mg Documented By: NAHEED Omeprazole (Omeprazole 40 Mg Capsule.) 40 mg PO BID@0614,8300 [facility] Last Admin: 07/06/24 05:14 Dose: Not Given Documented By: NAHEED Non-Admin Reason: NPO Ondansetron HCl (Ondansetron Hcl 4 Mg/2 Ml Vial) 4 mg IVPUSH Q4H PRN PRN Reason: Nausea and Vomiting Last Admin: 07/02/24 16:00 Dose: 4 mg Documented By: BAILEY Sodium Chloride (0.9 % Sodium Chloride Flush 3 Ml Syringe) 3 ml IVFLUSH QSHIFT [facility] Last Admin: 07/06/24 08:41 Dose: Not Given Documented By: MIKI Non-Admin Reason: IV Running Verapamil HCl (Verapamil Hcl Sr 240 Mg Tablet.Er) 240 mg PO DAILY [facility]; Protocol Last Admin: 07/06/24 08:41 Dose: Not Given Documented By: MIKI Non-Admin Reason: NPO Labs 07/05/24 06:45 07/05/24 06:45 Procedures Date of Service Date of Service: 07/06/24 Progress Note: A&P Assessment and plan (1) S/P exploratory laparotomy: Status: Acute (2) Postop check: Status: Acute Plan I strongly encouraged the patient to attempt oral intake. He also has been very strongly encouraged to get up out of bed and ambulate. Time Spent With Patient Time: Total time managing care of this patient today ____ minutes. Quality Stroke Does the patient have a stroke diagnosis?: No VTE Prior VTE?: No VTE Risk Level:: Medical - moderate - high VTE Device Contraindication: Treatment Not Indicated VTE Drug Contraindication: N/A - Med Ordered
--- NOTE | 2024-07-06 12:07 | MHC.SLORD ---
Speech Language Pathology Order Status: Pt NPO for barium swallow today. AIRCRAFT MECHANIC ARMAMENT to check status this afternoon.
[2024-07-06] MEDS: Enoxaparin Sodium 40 MG/0.4 ML SYRINGE SUBCUT (13:00)
--- NOTE | 2024-07-06 14:16 | MHC.CM.PN ---
Per rounds, pt is not ready for DC. PT rec STR, CM discussed this with pt., he is agreeable to going, he did not state a preference for which one, referrals out.
--- NOTE | 2024-07-06 15:27 | MHC.SL.SWA ---
Speech Pathologist Impression: Moderate to significant pharyngeal and esophageal dysphagia as diagnosed previously Risk of Aspiration Due to: Medically Fragile History of Pneumonia Poor PO Intake Weak Cough Weak Voice Esophageal CA Aspiration visualized on prior swallow studies Dysphasia Diet Status: Clear liquid diet, aspiration precautions Liquid Consistency and Strategies for Safe Swallow: Liquid Intake Recommendation: Thin Liquid Intake Strategies: Small Sips Double Swallow Solid Food Consistency: Dietary Recommendations: Clear liquids Additional Modifications to Solid Foods: Oral Medication Intake: Please contact the pharmacy regarding appropriate crushable or liquid drug formulations that are available whenever modified delivery is recommended. Compensatory Strategies and Precautions to be Taken for Safe Swallow: Supervision While Eating and Drinking for Safe Swallow: Total Supervision (1:1) Foods to Avoid: Swallowing Recommended Treatments: Compens. Strategy Educat. Recommendation for Speech: Further Testing Needed/input from GI, ENT, and RD Comment: Frequency/Duration: daily inpatient Date Range for Service Req: Timeline to reassess: Rib Knitter Clinican/Clinical Fellow: No Supervisory Statement: I have reviewed and agree with the student/clinical fellow's documentation: N/A Speech Language Pathologist: Ranjana Fontaine M.S., CCC-FITNESS DIRECTOR
--- NOTE | 2024-07-06 16:27 | P.PNIM_ITS ---
Subjective Subjective Date of Service: 07/06/24 Interval History: difficulty swallowing postop pain controlled Review of Systems Review of Systems: Yes all other systems are reviewed and are negative Physical Exam 2 Vital Signs: Vital Signs: Last Vital Signs Temp 97.1 F 07/06/24 15:32 Pulse 79 07/06/24 15:32 Resp 18 07/06/24 15:32 BP 170/84 H 07/06/24 15:32 Pulse Ox 91 L 07/06/24 15:32 O2 Del Method Nasal Cannula 07/06/24 15:32 O2 Flow Rate 2 07/06/24 15:32 FiO2 30 07/03/24 16:00 BMI result Body Mass Index 25.5 Gen: in no acute distress, hoarse voice HEENT: sclera anicteric, moist mucus membranes Neck: supple Lungs: clear bilaterally Heart: regular rate and rhythm, no murmurs Abd: midline incision with dry dressing, active bowel sounds Ext: no edema Skin: warm/well-perfused Neuro: alert and oriented x3, no focal findings Psych: appropriate affect Objective Data Active Medications Benzocaine (Throat Lozenge, Medicated Lozenge) 1 lozenge MUCOUS MEM Q2H PRN PRN Reason: Sore Throat Calcium Carbonate (Calcium Carbonate 750 Mg Tab.Chew) 750 mg PO Q4H PRN PRN Reason: Heartburn Last Admin: 07/02/24 00:42 Dose: 750 mg Documented By: TOM Enoxaparin Sodium (Enoxaparin Sodium 40 Mg/0.4 Ml Syringe) 40 mg SUBCUT Q24H [facility] Last Admin: 07/06/24 13:00 Dose: 40 mg Documented By: MIKI Gabapentin (Gabapentin 300 Mg Capsule) 600 mg PO BID [facility] Last Admin: 07/06/24 08:41 Dose: Not Given Documented By: MIKI Non-Admin Reason: NPO Lactated Ringer's (Lr) 1,000 mls @ 80 mls/hr IVCONT .[id number] [facility] Last Admin: 07/06/24 13:00 Dose: Not Given Documented By: MIKI Non-Admin Reason: IV Running Melatonin (Melatonin 3 Mg Tablet) 6 mg PO BEDTIME PRN PRN Reason: Insomnia Omeprazole (Omeprazole 40 Mg Capsule.) 40 mg PO BID@0630,1630 [facility] Last Admin: 07/06/24 05:14 Dose: Not Given Documented By: NAHEED Non-Admin Reason: NPO Ondansetron HCl (Ondansetron Hcl 4 Mg/2 Ml Vial) 4 mg IVPUSH Q4H PRN PRN Reason: Nausea and Vomiting Last Admin: 07/02/24 16:00 Dose: 4 mg Documented By: BAILEY Sodium Chloride (0.9 % Sodium Chloride Flush 3 Ml Syringe) 3 ml IVFLUSH QSHIFT [facility] Last Admin: 07/06/24 08:41 Dose: Not Given Documented By: MIKI Non-Admin Reason: IV Running Verapamil HCl (Verapamil Hcl Sr 240 Mg Tablet.Er) 240 mg PO DAILY [facility]; Protocol Last Admin: 07/06/24 08:41 Dose: Not Given Documented By: MIKI Non-Admin Reason: NPO Labs 07/05/24 06:45 07/05/24 06:45 Assessment and Plan (1) Small bowel obstruction: Status: Acute Plan d6 for 78yo M with 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], 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, prostate CA, peripheral neuropathy, HTN, GERD, and multiple SBOs presenting with N/V/abd pain and found to have high-grade SBO and went to OR 07/02 SBO - underwent exploratory laparotomy, extensive enterolysis and adhesionolysis by Dr Alberto 07/02 - NGT out 07/03, may advance diet surgically but has dysphagia dysphagia - 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 The calculated ejection fraction is 57% by biplane method. - No obvious valvular pathology seen on this study JUAN - suspect due to operation/anesthesia; resolved after IV fluid hydration HTN - resume verapamil peripheral neuropathy - resume gabapentin GERD - PPI VTE prophylaxis - enoxaparin dispo - PT eval: STR In my clinical judgment, the patient requires continued inpatient hospitalization for the following reasons: dysphagia Total time managing care of this patient today: 40 minutes. Quality Stroke Does the patient have a stroke diagnosis?: No VTE Prior VTE?: No VTE Risk Level:: Medical - moderate - high VTE Device Contraindication: Treatment Not Indicated VTE Drug Contraindication: N/A - Med Ordered
[2024-07-06] MEDS: 0.9 % Sodium Chloride Flush 3 ML SYRINGE IVFLUSH (17:40)
--- NOTE | 2024-07-06 18:00 | P.CDIM_ITS ---
PROVIDER RESPONSE TEXT: To clarify, the appropriate diagnosis supported by the clinical indicators: Acute (non-cardiac) pulmonary edema: post operative QUERY TEXT: PHYSICIAN'S DOCUMENTATION REQUEST Date of Query: 07/04/2024 08:46 AM EST Patient Name: Yoseph Orellana Admit Date: 07/01/2024 Dear Gamaliel Gilbert MD, A review of the medical record indicates additional documentation may be needed. Please review below and update the documentation accordingly. Clinical Indicators: Chest X-ray 07/02 - Impression: Interstitial and pulmonary vascular prominence, new compared to prior exam. Streaky bibasilar airspace opacities. Findings can be seen in the setting of pulmonary edema. Progress note 07/03 - AHRF, diuresed yesterday for pulmonary edema and was briefly on HFNC. Currently on Oxymask. Based on the above, could you please provide, in the Progress Notes, further specificity regarding th e acuity and etiology of the pulmonary edema? Acute (non-cardiac) pulmonary edema possible, probable, suspected etc. Chronic pulmonary edema Other (explain) Clinically unable to determine (explain) Thank you, Lexy Bacon, CCS, CDIS Use of terms such as suspected, likely, concern for, or probable (associated with a specific diagnosi s that is being evaluated, monitored, or treated as if it exists) are acceptable and can be coded in the inpatient se tting, when documented at the time of discharge. Please use your independent medical judgment in providing your response. THIS QUERY IS PART OF THE PERMANENT MEDICAL RECORD
[2024-07-07] VITALS (7 sets, daily range): BP systolic 129–196; BP diastolic 59–100; PULSE 55–85; RESP 15–20; TEMP 36.2–37.2; O2SAT 92–95
[2024-07-07] MEDS: Morphine Sulfate 4 MG/ML CARTRIDGE IVPUSH (02:55)
[2024-07-07] MEDS: Lactated Ringers 1,000 ML 80 ML IVCONT ×2 (06:03→18:01)
[2024-07-07 07:01] LABS: Anion Gap 14 (12-20); Blood Urea Nitrogen 15 mg/dL (9-16); Calcium 9.1 mg/dL (8.4-10.2); Carbon Dioxide 26 mmol/L (22-29); Chloride 110 mmol/L (96-108); Creatinine Clr Calc Pharmacy 83.8; Estimated Glomerular Filt Rate > 60; Glucose Random 94 mg/dL (60-115); Magnesium 2.2 mg/dL (1.6-2.6); Potassium 3.5 mmol/L (3.3-5.1); Sodium 146 mmol/L (135-145)
[2024-07-07] MEDS: Gabapentin 300 MG CAPSULE 600 MG PO ×2 (08:11→23:19)
[2024-07-07] MEDS: VerapamiL HCL SR 240 MG TABLET.ER PO (08:11)
--- NOTE | 2024-07-07 10:11 | HO.PM.IMPN ---
Subjective Subjective Date of Service: 07/07/24 Interval History: Follow up SBO, exp lap difficulty swallowing postop pain controlled Review of Systems Review of Systems: Yes all other systems are reviewed and are negative Physical Exam Vital Signs: Vital Signs: Last Vital Signs Temp 98.9 F 07/07/24 07:53 Pulse 85 07/07/24 07:53 Resp 20 07/07/24 07:53 BP 196/100 H 07/07/24 07:53 Pulse Ox 95 07/07/24 07:53 O2 Del Method Nasal Cannula 07/07/24 07:53 O2 Flow Rate 2.5 07/07/24 07:53 FiO2 30 07/03/24 16:00 BMI result Body Mass Index 25.5 Appearing in no acute distress lung sounds are clear to auscultation heart regular rate rhythm, clear S1, S2 positive bowel sounds, abdomen is soft, nontender neuro patient is alert x3, no focal deficits Objective Data Active Medications Benzocaine (Throat Lozenge, Medicated Lozenge) 1 lozenge MUCOUS MEM Q2H PRN PRN Reason: Sore Throat Calcium Carbonate (Calcium Carbonate 750 Mg Tab.Chew) 750 mg PO Q4H PRN PRN Reason: Heartburn Last Admin: 07/02/24 00:42 Dose: 750 mg Documented By: TOM Enoxaparin Sodium (Enoxaparin Sodium 40 Mg/0.4 Ml Syringe) 40 mg SUBCUT Q24H [facility] Last Admin: 07/06/24 13:00 Dose: 40 mg Documented By: MIKI Gabapentin (Gabapentin 300 Mg Capsule) 600 mg PO BID [facility] Last Admin: 07/07/24 08:11 Dose: 600 mg Documented By: MARTINEZ Lactated Ringer's (Lr) 1,000 mls @ 80 mls/hr IVCONT .[id number] [facility] Last Admin: 07/07/24 06:03 Dose: 80 mls/hr Documented By: EUGENIO Melatonin (Melatonin 3 Mg Tablet) 6 mg PO BEDTIME PRN PRN Reason: Insomnia Morphine Sulfate (Morphine Sulfate 4 Mg/Ml Cartridge) 4 mg IVPUSH Q4H PRN; Protocol PRN Reason: pain,severe Last Admin: 07/07/24 02:55 Dose: 4 mg Documented By: EUGENIO Omeprazole (Omeprazole 40 Mg Capsule.) 40 mg PO BID@0630,1630 [facility] Last Admin: 07/07/24 05:51 Dose: Not Given Documented By: EUGENIO Non-Admin Reason: difficulty swallowing Ondansetron HCl (Ondansetron Hcl 4 Mg/2 Ml Vial) 4 mg IVPUSH Q4H PRN PRN Reason: Nausea and Vomiting Last Admin: 07/02/24 16:00 Dose: 4 mg Documented By: BAILEY Pharmacy Consult (Consult Rx Parenteral Nutrition Ordering) 1 each MISCELLANE DAILY PRN PRN Reason: Consult order Sodium Chloride (0.9 % Sodium Chloride Flush 3 Ml Syringe) 3 ml IVFLUSH QSHIFT [facility] Last Admin: 07/07/24 08:15 Dose: Not Given Documented By: MARTINEZ Non-Admin Reason: IV Running Verapamil HCl (Verapamil Hcl Sr 240 Mg Tablet.Er) 240 mg PO DAILY [facility]; Protocol Last Admin: 07/07/24 08:11 Dose: 240 mg Documented By: MARTINEZ Labs 07/05/24 06:45 07/07/24 06:01 Labs: Laboratory Results - last 24 hr 07/07/24 06:01 Hold Purple Top SEE NOTE Anion Gap 14 Estim Creat Clear Calc 83.8 Estimated GFR > 60 Random Glucose 94 Calcium 9.1 Phosphorus 3.0 Magnesium 2.2 Assessment and Plan (1) Small bowel obstruction: Status: Acute Plan d78yo M with 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], 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, prostate CA, peripheral neuropathy, HTN, GERD, and multiple SBOs presenting with N/V/abd pain and found to have high-grade SBO and went to OR 07/02 SBO underwent exploratory laparotomy, extensive enterolysis and adhesionolysis by Dr Alberto 07/02 NGT out 07/03 on clear liquid diet 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 Henson Full code dispo PT eval: STR Total time managing care of this patient today: 40 minutes. Quality Stroke Does the patient have a stroke diagnosis?: No VTE Prior VTE?: No VTE Risk Level:: Medical - moderate - high VTE Device Contraindication: Treatment Not Indicated VTE Drug Contraindication: N/A - Med Ordered
--- NOTE | 2024-07-07 11:15 | MHC.CLN ---
CONSULT FOR PPN REVIEWED LABS DISCUSSED WITH PHARMACY 07/07/24 RECOMMEND PPN AT 60ML/HR TO PROVIDE 734KCALS, 144G DEXTROSE, 61G PROTEIN REPLETE LYTES NEEDED; MONITOR K+, PHOS AND MG 07/08/24 RECOMMEND INCREASING PPN TO 80ML/HR TO PROVIDE 979KCALS, 192G DEXTROSE, 82G PROTEIN REPLETE LYTES NEEDED, CHECK TRIG LEVEL-MONITOR K+, PHOS AND MG 07/09/24 RECOMMEND INCREASING PPN TO MAX GOAL RATE 100ML/HR WITH 68G LIPIDS TO PROVIDE 1904 TOTAL KCALS (25KCALS/KG), 240G DEXTROSE, 102G PROTEIN (1.3G/KG) REPLETE LYTES NEEDED FULL CLINICAL NUTRITION ASSESSMENT TO FOLLOW RD CAN BE REACHED DURING OFF HOURS VIA [employer] [facility] IF NEEDED FOLLOWING WITH TEAM
[2024-07-07] MEDS: Enoxaparin Sodium 40 MG/0.4 ML SYRINGE SUBCUT (13:41)
--- NOTE | 2024-07-07 15:04 | PM.PNGS ---
Subjective Subjective Date of Service: 07/08/24 Interval history: pt feeling ok - said he did have some ice water to drink but not much Physical Exam Vital Signs: Vital Signs: Last Vital Signs Temp 98.3 F 07/07/24 12:00 Pulse 68 07/07/24 12:00 Resp 20 07/07/24 12:00 BP 134/64 07/07/24 12:00 Pulse Ox 93 07/07/24 12:00 O2 Del Method Nasal Cannula 07/07/24 12:00 O2 Flow Rate 2 07/07/24 12:00 FiO2 30 07/03/24 16:00 BMI result Body Mass Index 25.5 Const: General: cooperative and tired appearing Resp: Effort & Inspection: normal respiratory effort Cardio: Rate: regular rate Rhythm: regular rhythm GI: Other: abdomen soft nontender incision looks good - some bowel sounds Objective Data Active Medications Benzocaine (Throat Lozenge, Medicated Lozenge) 1 lozenge MUCOUS MEM Q2H PRN PRN Reason: Sore Throat Calcium Carbonate (Calcium Carbonate 750 Mg Tab.Chew) 750 mg PO Q4H PRN PRN Reason: Heartburn Last Admin: 07/02/24 00:42 Dose: 750 mg Documented By: TOM Enoxaparin Sodium (Enoxaparin Sodium 40 Mg/0.4 Ml Syringe) 40 mg SUBCUT Q24H [facility] Last Admin: 07/07/24 13:41 Dose: 40 mg Documented By: MARTINEZ Gabapentin (Gabapentin 300 Mg Capsule) 600 mg PO BID [facility] Last Admin: 07/07/24 08:11 Dose: 600 mg Documented By: MARTINEZ Lactated Ringer's (Lr) 1,000 mls @ 80 mls/hr IVCONT .[id number] [facility] Last Admin: 07/07/24 06:03 Dose: 80 mls/hr Documented By: EUGENIO Nutrition (Parenteral) (Parenteral Nutrition) 1,440 mls @ 60 mls/hr IV .Q24H [facility]; Protocol Stop: 07/08/24 20:59 Melatonin (Melatonin 3 Mg Tablet) 6 mg PO BEDTIME PRN PRN Reason: Insomnia Morphine Sulfate (Morphine Sulfate 4 Mg/Ml Cartridge) 4 mg IVPUSH Q4H PRN; Protocol PRN Reason: pain,severe Last Admin: 07/07/24 02:55 Dose: 4 mg Documented By: EUGENIO Omeprazole (Omeprazole 40 Mg Capsule.) 40 mg PO BID@0630,1630 [facility] Last Admin: 07/07/24 05:51 Dose: Not Given Documented By: EUGENIO Non-Admin Reason: difficulty swallowing Ondansetron HCl (Ondansetron Hcl 4 Mg/2 Ml Vial) 4 mg IVPUSH Q4H PRN PRN Reason: Nausea and Vomiting Last Admin: 07/02/24 16:00 Dose: 4 mg Documented By: BAILEY Pharmacy Consult (Consult Rx Parenteral Nutrition Ordering) 1 each MISCELLANE DAILY PRN PRN Reason: Consult order Sodium Chloride (0.9 % Sodium Chloride Flush 3 Ml Syringe) 3 ml IVFLUSH QSHIFT [facility] Last Admin: 07/07/24 08:15 Dose: Not Given Documented By: MARTINEZ Non-Admin Reason: IV Running Verapamil HCl (Verapamil Hcl Sr 240 Mg Tablet.Er) 240 mg PO DAILY [facility]; Protocol Last Admin: 07/07/24 08:11 Dose: 240 mg Documented By: MARTINEZ Labs 07/05/24 06:45 07/07/24 06:01 Labs: Laboratory Results - last 24 hr 07/07/24 06:01 Hold Purple Top SEE NOTE Anion Gap 14 Estim Creat Clear Calc 83.8 Estimated GFR > 60 Random Glucose 94 Calcium 9.1 Phosphorus 3.0 Magnesium 2.2 Procedures Date of Service Date of Service: 07/08/24 Progress Note: A&P Assessment and plan (1) S/P exploratory laparotomy: Status: Acute Assessment and Plan: pt with sbo due to adhesions from previous surgeries - did well with adhesiolysis but now pt gi function improving but he is still scared to eat - encourage to take more and will trial boost supplements tomorrow. also ambulate etc with PE Time Spent With Patient Time: Total time managing care of this patient today ____ minutes. Quality Stroke Does the patient have a stroke diagnosis?: No VTE Prior VTE?: No VTE Risk Level:: Medical - moderate - high VTE Device Contraindication: Treatment Not Indicated VTE Drug Contraindication: N/A - Med Ordered
[2024-07-07] MEDS: Omeprazole 40 MG CAPSULE.DR PO (17:51)
[2024-07-07] MEDS: Parenteral Nutrition 1,440 ML 60 ML IV (23:23)
[2024-07-08] VITALS (8 sets, daily range): BP systolic 127–146; BP diastolic 62–84; PULSE 61–83; RESP 16–20; TEMP 36.4–37.2; O2SAT 90–96; BMI 25.5
[2024-07-08] MEDS: Omeprazole 40 MG CAPSULE.DR PO ×2 (05:40→16:36)
--- NOTE | 2024-07-08 09:21 | P.PNIM_ITS ---
Subjective Subjective Date of Service: 07/08/24 Interval History: Follow up SBO, exp lap difficulty swallowing postop pain controlled PPN started Review of Systems Review of Systems: Yes all other systems are reviewed and are negative Physical Exam 2 Vital Signs: Vital Signs: Last Vital Signs Temp 98.0 F 07/08/24 08:00 Pulse 63 07/08/24 08:00 Resp 20 07/08/24 08:00 BP 140/84 H 07/08/24 08:00 Pulse Ox 95 07/08/24 08:00 O2 Del Method Nasal Cannula 07/08/24 08:00 O2 Flow Rate 4 07/08/24 08:00 FiO2 30 07/03/24 16:00 BMI result Body Mass Index 25.5 Appearing in no acute distress lung sounds are clear to auscultation heart regular rate rhythm, clear S1, S2 positive bowel sounds, abdomen is soft, nontender neuro patient is alert x3, no focal deficits Objective Data Active Medications Benzocaine (Throat Lozenge, Medicated Lozenge) 1 lozenge MUCOUS MEM Q2H PRN PRN Reason: Sore Throat Calcium Carbonate (Calcium Carbonate 750 Mg Tab.Chew) 750 mg PO Q4H PRN PRN Reason: Heartburn Last Admin: 07/02/24 00:42 Dose: 750 mg Documented By: TOM Enoxaparin Sodium (Enoxaparin Sodium 40 Mg/0.4 Ml Syringe) 40 mg SUBCUT Q24H [facility] Last Admin: 07/07/24 13:41 Dose: 40 mg Documented By: MARTINEZ Gabapentin (Gabapentin 300 Mg Capsule) 600 mg PO BID [facility] Last Admin: 07/07/24 23:19 Dose: 600 mg Documented By: RENETTA Lactated Ringer's (Lr) 1,000 mls @ 80 mls/hr IVCONT .[id number] [facility] Last Infusion: 07/08/24 03:00 Dose: 0 mls/hr Documented By: RENETTA Nutrition (Parenteral) (Parenteral Nutrition) 1,440 mls @ 60 mls/hr IV .Q24H [facility]; Protocol Stop: 07/08/24 20:59 Last Admin: 07/07/24 23:23 Dose: 60 mls/hr Documented By: RENETTA Melatonin (Melatonin 3 Mg Tablet) 6 mg PO BEDTIME PRN PRN Reason: Insomnia Morphine Sulfate (Morphine Sulfate 4 Mg/Ml Cartridge) 4 mg IVPUSH Q4H PRN; Protocol PRN Reason: pain,severe Last Admin: 07/07/24 02:55 Dose: 4 mg Documented By: EUGENIO Omeprazole (Omeprazole 40 Mg Capsule.) 40 mg PO BID@0630,1630 [facility] Last Admin: 07/08/24 05:40 Dose: 40 mg Documented By: RENETTA Ondansetron HCl (Ondansetron Hcl 4 Mg/2 Ml Vial) 4 mg IVPUSH Q4H PRN PRN Reason: Nausea and Vomiting Last Admin: 07/02/24 16:00 Dose: 4 mg Documented By: BAILEY Pharmacy Consult (Consult Rx Parenteral Nutrition Ordering) 1 each MISCELLANE DAILY PRN PRN Reason: Consult order Sodium Chloride (0.9 % Sodium Chloride Flush 3 Ml Syringe) 3 ml IVFLUSH QSHIFT [facility] Last Admin: 07/07/24 23:26 Dose: Not Given Documented By: RENETTA Non-Admin Reason: IV Running Verapamil HCl (Verapamil Hcl Sr 240 Mg Tablet.Er) 240 mg PO DAILY [facility]; Protocol Last Admin: 07/07/24 08:11 Dose: 240 mg Documented By: MARTINEZ Labs 07/05/24 06:45 07/07/24 06:01 Assessment and Plan (1) Small bowel obstruction: Status: Acute Plan d78yo M with esophageal adenoCA s/p distal esophagectomy with gastric pull- through [2019], 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, prostate CA, peripheral neuropathy, HTN, GERD, and multiple SBOs presenting with N/V/abd pain and found to have high-grade SBO and went to OR 07/02 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>very poor prognosis for PO intake given complex hx of esophageal CA, unilateral vocal cord paralysis & pharyngeal dysphagia w/aspiration clear liquid diet, nectar thickening as per pt preference, Ensure TID started PPN 07/07/24 AREA MECHANIC re-evaluation SBO underwent exploratory laparotomy, extensive enterolysis and adhesionolysis by Dr Alberto 07/02 NGT out 07/03 on clear liquid diet HFPEF diuresed postop for pulmonary edema and was briefly on HFNC, then Oxymask, now on O2 2L via NC; BNP now normal TTE 07/04/24 normal JUAN suspect due to operation/anesthesia resolved after IV fluid hydration HTN with elevated blood pressure readings verapamil peripheral neuropathy gabapentin GERD PPI VTE prophylaxis enoxaparin Attending Dr. Arambula Full code dispo PT eval: STR Total time managing care of this patient today: 40 minutes. Quality Stroke Does the patient have a stroke diagnosis?: No VTE Prior VTE?: No VTE Risk Level:: Medical - moderate - high VTE Device Contraindication: Treatment Not Indicated VTE Drug Contraindication: N/A - Med Ordered
[2024-07-08] MEDS: VerapamiL HCL SR 240 MG TABLET.ER PO (09:56)
[2024-07-08] MEDS: Gabapentin 300 MG CAPSULE 600 MG PO ×2 (09:56→21:43)
[2024-07-08 10:44] LABS: Albumin Level 2.3 g/dL (3.5-5.0); Anion Gap 10 (12-20); Blood Urea Nitrogen 14 mg/dL (9-16); Calcium 8.3 mg/dL (8.4-10.2); Carbon Dioxide 28 mmol/L (22-29); Chloride 106 mmol/L (96-108); Estimated Glomerular Filt Rate > 60; Glucose Random 116 mg/dL (60-115); Magnesium 2.2 mg/dL (1.6-2.6); Phosphorus 3.8 mg/dL (2.7-4.5); Potassium 3.1 mmol/L (3.3-5.1); Sodium 142 mmol/L (135-145)
[2024-07-08] MEDS: Enoxaparin Sodium 40 MG/0.4 ML SYRINGE SUBCUT (13:40)
--- NOTE | 2024-07-08 14:37 | MHC.CLN ---
NUTRITION NUTRITION CONSULT PPN STARTED 07/07. DIET=CLEAR LIQUIDS. RECOMMEND INCREASE PPN TODAY TO 80 ML PER HOUR TO PROVIDE 82 G PROTEIN, 192 G DEXTROSE, 979 KCALS. REPLETE LYTES NEEDED. CHECK TRIGLYCERIDES. ON 07/09, RECOMMEND ADVANCE TO MAX GOAL RATE: PPN AT 100 ML PER HOUR ADD 68 G LIPIDS TO PROVIDE 1904 TOTAL KCALS (25 KCALS/KG), 240 G DEXTROSE, 102 G PROTEIN (1.3 G/KG). REPLETE LYTES NEEDED. FOLLOW FOR PPN TOLERANCE AND DIET ADVANCEMENT. SEE CLINICAL NUTRITION ASSESSMENT 07/08/24.
--- NOTE | 2024-07-08 15:13 | MHC.CM.PN ---
EMR reviewed and per MD rounds, pt is not medically cleared for discharge due to management of dysphagia with pt on PPN.
[2024-07-08] MEDS: Parenteral Nutrition 1,920 ML 80 ML IV (21:43)
[2024-07-09] VITALS (8 sets, daily range): BP systolic 139–161; BP diastolic 66–83; PULSE 63–76; RESP 16–20; TEMP 36.3–37.2; O2SAT 92–96
--- NOTE | 2024-07-09 00:57 | P.PNGS_ITS ---
Subjective Subjective Date of Service: 07/08/24 Interval history: feeling better, had a bowel movement. drinking a bit of liquids, supplements added wants to try solids tomorrow Physical Exam 2 Vital Signs: Vital Signs: Last Vital Signs Temp 99.0 F 07/08/24 23:45 Pulse 61 07/08/24 23:45 Resp 18 07/08/24 23:45 BP 127/62 07/08/24 23:45 Pulse Ox 91 L 07/08/24 23:45 O2 Del Method Nasal Cannula 07/08/24 23:45 O2 Flow Rate 2 07/08/24 23:45 FiO2 30 07/03/24 16:00 BMI result Body Mass Index 25.5 GI: Other: abdomen soft nontender incision looks good Objective Data Active Medications Benzocaine (Throat Lozenge, Medicated Lozenge) 1 lozenge MUCOUS MEM Q2H PRN PRN Reason: Sore Throat Calcium Carbonate (Calcium Carbonate 750 Mg Tab.Chew) 750 mg PO Q4H PRN PRN Reason: Heartburn Last Admin: 07/02/24 00:42 Dose: 750 mg Documented By: TOM Enoxaparin Sodium (Enoxaparin Sodium 40 Mg/0.4 Ml Syringe) 40 mg SUBCUT Q24H [facility] Last Admin: 07/08/24 13:40 Dose: 40 mg Documented By: ALISSA Gabapentin (Gabapentin 300 Mg Capsule) 600 mg PO BID [facility] Last Admin: 07/08/24 21:43 Dose: 600 mg Documented By: JOSSIE Nutrition (Parenteral) (Parenteral Nutrition) 1,920 mls @ 80 mls/hr IV .Q24H [facility]; Protocol Stop: 07/09/24 20:59 Last Admin: 07/08/24 21:43 Dose: 80 mls/hr Documented By: JOSSIE Melatonin (Melatonin 3 Mg Tablet) 6 mg PO BEDTIME PRN PRN Reason: Insomnia Morphine Sulfate (Morphine Sulfate 4 Mg/Ml Cartridge) 4 mg IVPUSH Q4H PRN; Protocol PRN Reason: pain,severe Last Admin: 07/07/24 02:55 Dose: 4 mg Documented By: EUGENIO Omeprazole (Omeprazole 40 Mg Capsule.) 40 mg PO BID@0630,1630 [facility] Last Admin: 07/08/24 16:36 Dose: 40 mg Documented By: ALISSA Ondansetron HCl (Ondansetron Hcl 4 Mg/2 Ml Vial) 4 mg IVPUSH Q4H PRN PRN Reason: Nausea and Vomiting Last Admin: 07/02/24 16:00 Dose: 4 mg Documented By: BAILEY Pharmacy Consult (Consult Rx Parenteral Nutrition Ordering) 1 each MISCELLANE DAILY PRN PRN Reason: Consult order Sodium Chloride (0.9 % Sodium Chloride Flush 3 Ml Syringe) 3 ml IVFLUSH QSHIFT [facility] Last Admin: 07/09/24 00:09 Dose: Not Given Documented By: JOSSIE Non-Admin Reason: IV Running Verapamil HCl (Verapamil Hcl Sr 240 Mg Tablet.Er) 240 mg PO DAILY [facility]; Protocol Last Admin: 07/08/24 09:56 Dose: 240 mg Documented By: MILA Labs 07/05/24 06:45 07/08/24 09:01 Labs: Laboratory Results - last 24 hr 07/08/24 09:01 Anion Gap 10 L Estim Creat Clear Calc 85.0 Estimated GFR > 60 Random Glucose 116 H Calcium 8.3 L D Phosphorus 3.8 Magnesium 2.2 Albumin 2.3 L Procedures Date of Service Date of Service: 07/09/24 Progress Note: A&P Assessment and plan (1) S/P exploratory laparotomy: Status: Acute Assessment and Plan: pt doing a bit better - taking in more po intake - encourage with nutrition consult and calorie counts and supplements Time Spent With Patient Time: Total time managing care of this patient today ____ minutes. Quality Stroke Does the patient have a stroke diagnosis?: No VTE Prior VTE?: No VTE Risk Level:: Medical - moderate - high VTE Device Contraindication: Treatment Not Indicated VTE Drug Contraindication: N/A - Med Ordered
[2024-07-09] MEDS: Omeprazole 40 MG CAPSULE.DR PO ×2 (06:06→15:49)
[2024-07-09 07:07] LABS: Albumin Level 2.3 g/dL (3.5-5.0); Anion Gap 10 (12-20); Blood Urea Nitrogen 15 mg/dL (9-16); Calcium 7.8 mg/dL (8.4-10.2); Carbon Dioxide 27 mmol/L (22-29); Chloride 103 mmol/L (96-108); Creatinine Clr Calc Pharmacy 83.8; Estimated Glomerular Filt Rate > 60; Glucose Random 111 mg/dL (60-115); Magnesium 2.1 mg/dL (1.6-2.6); Phosphorus 3.5 mg/dL (2.7-4.5); Potassium 3.2 mmol/L (3.3-5.1); Sodium 137 mmol/L (135-145); Triglycerides 105 mg/dL (<150)
--- NOTE | 2024-07-09 07:24 | PC.NURSE ---
K 3.2 CA 7.8 Alb 2.3 PA Noris Vora notified
[2024-07-09] MEDS: VerapamiL HCL SR 240 MG TABLET.ER PO (09:17)
[2024-07-09] MEDS: Gabapentin 300 MG CAPSULE 600 MG PO ×2 (09:18→22:08)
[2024-07-09] MEDS: 0.9 % Sodium Chloride Flush 3 ML SYRINGE IVFLUSH (09:18)
[2024-07-09] MEDS: Enoxaparin Sodium 40 MG/0.4 ML SYRINGE SUBCUT (12:39)
[2024-07-09 13:47] LABS: Hematocrit 38.6 % (42.0-52.0); Hemoglobin 12.5 g/dl (14.0-18.0); Mean Corpuscular HGB Conc 32.4 g/dl (31.0-36.0); Mean Corpuscular Volume 86.4 fL (80.0-98.0); Platelet Count 239 X10*3/uL (160-400); Red Blood Count 4.47 X10*6/uL (4.60-5.80); White Blood Count 9.5 X10*3/uL (4.8-10.8)
--- NOTE | 2024-07-09 13:50 | PM.PNGS ---
Subjective Subjective Date of Service: 07/09/24 Interval history: pt doing well eating better no nausea Physical Exam Vital Signs: Vital Signs: Last Vital Signs Temp 98.0 F 07/09/24 11:27 Pulse 76 07/09/24 11:27 Resp 18 07/09/24 11:27 BP 139/66 07/09/24 11:27 Pulse Ox 92 07/09/24 11:27 O2 Del Method Nasal Cannula 07/09/24 11:27 O2 Flow Rate 2 07/09/24 11:27 FiO2 30 07/03/24 16:00 BMI result Body Mass Index 25.5 GI: Other: abdomen soft nontender nondistended incsion looks good Objective Data Active Medications Benzocaine (Throat Lozenge, Medicated Lozenge) 1 lozenge MUCOUS MEM Q2H PRN PRN Reason: Sore Throat Calcium Carbonate (Calcium Carbonate 750 Mg Tab.Chew) 750 mg PO Q4H PRN PRN Reason: Heartburn Last Admin: 07/02/24 00:42 Dose: 750 mg Documented By: TOM Enoxaparin Sodium (Enoxaparin Sodium 40 Mg/0.4 Ml Syringe) 40 mg SUBCUT Q24H [facility] Last Admin: 07/09/24 12:39 Dose: 40 mg Documented By: ANGELES Gabapentin (Gabapentin 300 Mg Capsule) 600 mg PO BID [facility] Last Admin: 07/09/24 09:18 Dose: 600 mg Documented By: ANGELES Nutrition (Parenteral) (Parenteral Nutrition) 1,920 mls @ 80 mls/hr IV .Q24H [facility]; Protocol Stop: 07/09/24 20:59 Last Admin: 07/08/24 21:43 Dose: 80 mls/hr Documented By: LYSZurdo Nutrition (Parenteral) (Parenteral Nutrition) 2,400 mls @ 100 mls/hr IV .Q24H [facility]; Protocol Stop: 07/10/24 20:59 Melatonin (Melatonin 3 Mg Tablet) 6 mg PO BEDTIME PRN PRN Reason: Insomnia Morphine Sulfate (Morphine Sulfate 4 Mg/Ml Cartridge) 4 mg IVPUSH Q4H [facility]; Protocol PRN Reason: pain,severe Last Admin: 07/07/24 02:55 Dose: 4 mg Documented By: EUGENIO Omeprazole (Omeprazole 40 Mg Capsule.) 40 mg PO BID@0630,1630 [facility] Last Admin: 07/09/24 06:06 Dose: 40 mg Documented By: JOSSIE Ondansetron HCl (Ondansetron Hcl 4 Mg/2 Ml Vial) 4 mg IVPUSH Q4H PRN PRN Reason: Nausea and Vomiting Last Admin: 07/02/24 16:00 Dose: 4 mg Documented By: BAILEY Pharmacy Consult (Consult Rx Parenteral Nutrition Ordering) 1 each MISCELLANE DAILY PRN PRN Reason: Consult order Sodium Chloride (0.9 % Sodium Chloride Flush 3 Ml Syringe) 3 ml IVFLUSH QSHIFT [facility] Last Admin: 07/09/24 09:18 Dose: 3 ml Documented By: ANGELES Verapamil HCl (Verapamil Hcl Sr 240 Mg Tablet.Er) 240 mg PO DAILY [facility]; Protocol Last Admin: 07/09/24 09:17 Dose: 240 mg Documented By: ANGELES Labs 07/09/24 13:38 07/09/24 05:34 Labs: Laboratory Results - last 24 hr 07/09/24 07/09/24 05:34 13:38 MCV 86.4 MCH 28.0 MCHC 32.4 RDW 14.0 Plt Count 239 D MPV 11.0 Absolute Nucleated RBC 0.000 Nucleated RBC % (auto) 0.0 Anion Gap 10 L Estim Creat Clear Calc 83.8 Estimated GFR > 60 Random Glucose 111 Calcium 7.8 L D Phosphorus 3.5 Magnesium 2.1 Albumin 2.3 L Triglycerides 105 Procedures Date of Service Date of Service: 07/09/24 Progress Note: A&P Assessment and plan (1) S/P exploratory laparotomy: Status: Acute Assessment and Plan: doing better but still po intake low - improving - if the GI tract works support it with po supploements and monitor calorie counts etc. was going to try soft diet today Time Spent With Patient Time: Total time managing care of this patient today ____ minutes. Quality Stroke Does the patient have a stroke diagnosis?: No VTE Prior VTE?: No VTE Risk Level:: Medical - moderate - high VTE Device Contraindication: Treatment Not Indicated VTE Drug Contraindication: N/A - Med Ordered
[2024-07-09 14:22] LABS: B Type Natriuretic Peptide 143 pg/mL (<100)
--- NOTE | 2024-07-09 14:32 | PC.NURSE ---
BNP 143 PA Noris made aware
--- NOTE | 2024-07-09 16:20 | P.PNIM_ITS ---
Subjective Subjective Date of Service: 07/09/24 Interval History: seen and examined this morning follow up for aspiration, SBO feeling a little better today, tolerating some po intake Review of Systems Review of Systems: Yes all other systems are reviewed and are negative Constitutional Constitutional: Denies chills and Denies fever(s) Cardiovascular Cardiovascular: Denies chest pain, Denies palpitations and Denies dyspnea Respiratory Respiratory: Denies dyspnea Endocrine Endocrine: Denies palpitations Physical Exam 2 Vital Signs: Vital Signs: Last Vital Signs Temp 98.1 F 07/09/24 15:15 Pulse 71 07/09/24 15:15 Resp 16 07/09/24 15:15 BP 146/67 H 07/09/24 15:15 Pulse Ox 92 07/09/24 15:15 O2 Del Method Nasal Cannula 07/09/24 15:15 O2 Flow Rate 2 07/09/24 15:15 FiO2 30 07/03/24 16:00 BMI result Body Mass Index 25.5 Const: Other: frail General: no acute distress, alert and awake Nutritional Appearance: a verage body habitus Orientation/consciousness: patient oriented x3 Resp: Other: basilar crackles Effort & Inspection: normal respiratory effort, no respiratory distress and no use of accessory muscles Cardio: Rate: regular rate GI: Other: abdomen soft, non-distended; incision c/d Inspection: No distended Palpation (GI): Soft to palpation and nontender Neuro: General: patient oriented x3, moves all extremities and CN's II-XI intact bilaterally Objective Data Active Medications Benzocaine (Throat Lozenge, Medicated Lozenge) 1 lozenge MUCOUS MEM Q2H PRN PRN Reason: Sore Throat Calcium Carbonate (Calcium Carbonate 750 Mg Tab.Chew) 750 mg PO Q4H PRN PRN Reason: Heartburn Last Admin: 07/02/24 00:42 Dose: 750 mg Documented By: TOM Enoxaparin Sodium (Enoxaparin Sodium 40 Mg/0.4 Ml Syringe) 40 mg SUBCUT Q24H [facility] Last Admin: 07/09/24 12:39 Dose: 40 mg Documented By: ANGELES Gabapentin (Gabapentin 300 Mg Capsule) 600 mg PO BID [facility] Last Admin: 07/09/24 09:18 Dose: 600 mg Documented By: ANGELES Nutrition (Parenteral) (Parenteral Nutrition) 1,920 mls @ 80 mls/hr IV .Q24H [facility]; Protocol Stop: 07/09/24 20:59 Last Admin: 07/08/24 21:43 Dose: 80 mls/hr Documented By: JOSSIE Nutrition (Parenteral) (Parenteral Nutrition) 2,400 mls @ 100 mls/hr IV .Q24H [facility]; Protocol Stop: 07/10/24 20:59 Melatonin (Melatonin 3 Mg Tablet) 6 mg PO BEDTIME PRN PRN Reason: Insomnia Morphine Sulfate (Morphine Sulfate 4 Mg/Ml Cartridge) 4 mg IVPUSH Q4H PRN; Protocol PRN Reason: pain,severe Last Admin: 07/07/24 02:55 Dose: 4 mg Documented By: EUGENIO Omeprazole (Omeprazole 40 Mg Capsule.Dr) 40 mg PO BID@0630,1630 [facility] Last Admin: 07/09/24 15:49 Dose: 40 mg Documented By: ANGELES Ondansetron HCl (Ondansetron Hcl 4 Mg/2 Ml Vial) 4 mg IVPUSH Q4H PRN PRN Reason: Nausea and Vomiting Last Admin: 07/02/24 16:00 Dose: 4 mg Documented By: BAILEY Pharmacy Consult (Consult Rx Parenteral Nutrition Ordering) 1 each MISCELLANE DAILY PRN PRN Reason: Consult order Sodium Chloride (0.9 % Sodium Chloride Flush 3 Ml Syringe) 3 ml IVFLUSH QSUC [facility] Last Admin: 07/09/24 15:49 Dose: Not Given Documented By: ANGELES Non-Admin Reason: IV Running Verapamil HCl (Verapamil Hcl Sr 240 Mg Tablet.Er) 240 mg PO DAILY [facility]; Protocol Last Admin: 07/09/24 09:17 Dose: 240 mg Documented By: ANGELES Labs 07/09/24 13:38 07/09/24 05:34 Labs: Laboratory Results - last 24 hr 07/09/24 07/09/24 05:34 13:38 MCV 86.4 MCH 28.0 MCHC 32.4 RDW 14.0 Plt Count 239 D MPV 11.0 Absolute Nucleated RBC 0.000 Nucleated RBC % (auto) 0.0 Anion Gap 10 L Estim Creat Clear Calc 83.8 Estimated GFR > 60 Random Glucose 111 Calcium 7.8 L D Phosphorus 3.5 Magnesium 2.1 B-Natriuretic Peptide 143 H Albumin 2.3 L Triglycerides 105 Assessment and Plan (1) Small bowel obstruction: Status: Acute Plan This is an 78yo male with 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], 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, prostate CA, peripheral neuropathy, HTN, GERD, and multiple SBOs presenting with N/V/abd pain and found to have high-grade SBO and went to OR 07/02 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>very poor prognosis for PO intake given complex hx of esophageal CA, unilateral vocal cord paralysis & pharyngeal dysphagia w/aspiration clear liquid diet, nectar thickening as per pt preference, Ensure TID started PPN 07/07/24 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 overall remains net + but BNP low and not enough po intake to stop PPN imaging similar to previous with ?RUL airspace opacities - possible aspiration also h/o tobacco use, asbestos exposure white count resolved, oxygen requirements stable no abx indicated at this time incentive spirometry, out of bed to chair and ambulation when able, strict Is&os wean oxygen as tolerated monitor JUAN suspect due to operation/anesthesia resolved after IV fluid hydration HTN with elevated blood pressure readings verapamil peripheral neuropathy gabapentin GERD PPI VTE prophylaxis enoxaparin Full code dispo PT eval: STR Quality Stroke Does the patient have a stroke diagnosis?: No VTE Prior VTE?: No VTE Risk Level:: Medical - moderate - high VTE Device Contraindication: Treatment Not Indicated VTE Drug Contraindication: N/A - Med Ordered
[2024-07-09] MEDS: Parenteral Nutrition 2,400 ML 100 ML IV (22:08)
[2024-07-10] VITALS (7 sets, daily range): BP systolic 132–177; BP diastolic 50–79; PULSE 67–75; RESP 16–20; TEMP 36.4–37.2; O2SAT 92–97
[2024-07-10] MEDS: Omeprazole 40 MG CAPSULE.DR PO ×2 (06:26→16:25)
[2024-07-10 06:54] LABS: Albumin Level 2.3 g/dL (3.5-5.0); Anion Gap 11 (12-20); Blood Urea Nitrogen 15 mg/dL (9-16); Calcium 8.3 mg/dL (8.4-10.2); Carbon Dioxide 26 mmol/L (22-29); Chloride 105 mmol/L (96-108); Creatinine Clr Calc Pharmacy 86.3; Estimated Glomerular Filt Rate > 60; Glucose Random 118 mg/dL (60-115); Magnesium 2.2 mg/dL (1.6-2.6); Phosphorus 3.5 mg/dL (2.7-4.5); Potassium 4.2 mmol/L (3.3-5.1); Sodium 138 mmol/L (135-145)
[2024-07-10] MEDS: Gabapentin 300 MG CAPSULE 600 MG PO ×2 (09:22→21:38)
[2024-07-10] MEDS: VerapamiL HCL SR 240 MG TABLET.ER PO (09:22)
[2024-07-10] MEDS: 0.9 % Sodium Chloride Flush 3 ML SYRINGE IVFLUSH (09:23)
--- NOTE | 2024-07-10 11:25 | P.PNGS_ITS ---
Subjective Subjective Date of Service: 07/10/24 Interval history: PATIENT IS DOING WELL FEELS GOOD. HAD A BOWEL MOVEMENT THIS MORNING slowly improving his p.o. intake Physical Exam 2 Vital Signs: Vital Signs: Last Vital Signs Temp 97.8 F 07/10/24 07:26 Pulse 73 07/10/24 09:22 Resp 18 07/10/24 07:26 BP 163/72 H 07/10/24 09:22 Pulse Ox 96 07/10/24 07:26 O2 Del Method Nasal Cannula 07/10/24 07:26 O2 Flow Rate 2 07/10/24 07:26 FiO2 30 07/03/24 16:00 BMI result Body Mass Index 25.5 GI: Other: Abdomen is soft nondistended nontender incision site looks good. Objective Data Active Medications Benzocaine (Throat Lozenge, Medicated Lozenge) 1 lozenge MUCOUS MEM Q2H PRN PRN Reason: Sore Throat Calcium Carbonate (Calcium Carbonate 750 Mg Tab.Chew) 750 mg PO Q4H PRN PRN Reason: Heartburn Last Admin: 07/02/24 00:42 Dose: 750 mg Documented By: TOM Enoxaparin Sodium (Enoxaparin Sodium 40 Mg/0.4 Ml Syringe) 40 mg SUBCUT Q24H [facility] Last Admin: 07/09/24 12:39 Dose: 40 mg Documented By: ANGELES Gabapentin (Gabapentin 300 Mg Capsule) 600 mg PO BID [facility] Last Admin: 07/10/24 09:22 Dose: 600 mg Documented By: ANGELES Nutrition (Parenteral) (Parenteral Nutrition) 2,400 mls @ 100 mls/hr IV .Q24H [facility]; Protocol Stop: 07/10/24 20:59 Last Admin: 07/09/24 22:08 Dose: 100 mls/hr Documented By: LYSZ Nutrition (Parenteral) (Parenteral Nutrition) 2,400 mls @ 100 mls/hr IV .Q24H [facility]; Protocol Stop: 07/11/24 20:59 Melatonin (Melatonin 3 Mg Tablet) 6 mg PO BEDTIME PRN PRN Reason: Insomnia Morphine Sulfate (Morphine Sulfate 4 Mg/Ml Cartridge) 2 mg IVPUSH Q4H PRN; Protocol PRN Reason: pain,severe Omeprazole (Omeprazole 40 Mg Capsule.) 40 mg PO BID@0630,1630 [facility] Last Admin: 07/10/24 06:26 Dose: 40 mg Documented By: JOSSIE Ondansetron HCl (Ondansetron Hcl 4 Mg/2 Ml Vial) 4 mg IVPUSH Q4H PRN PRN Reason: Nausea and Vomiting Last Admin: 07/02/24 16:00 Dose: 4 mg Documented By: BAILEY Pharmacy Consult (Consult Rx Parenteral Nutrition Ordering) 1 each MISCELLANE DAILY PRN PRN Reason: Consult order Sodium Chloride (0.9 % Sodium Chloride Flush 3 Ml Syringe) 3 ml IVFLUSH QSHIFT [facility] Last Admin: 07/10/24 09:23 Dose: 3 ml Documented By: ANGELES Verapamil HCl (Verapamil Hcl Sr 240 Mg Tablet.Er) 240 mg PO DAILY [facility]; Protocol Last Admin: 07/10/24 09:22 Dose: 240 mg Documented By: ANGELES Labs 07/09/24 13:38 07/10/24 06:02 Labs: Laboratory Results - last 24 hr 07/09/24 07/10/24 13:38 06:02 MCV 86.4 MCH 28.0 MCHC 32.4 RDW 14.0 Plt Count 239 D MPV 11.0 Absolute Nucleated RBC 0.000 Nucleated RBC % (auto) 0.0 Anion Gap 11 L Estim Creat Clear Calc 86.3 Estimated GFR > 60 Random Glucose 118 H Calcium 8.3 L D Phosphorus 3.5 Magnesium 2.2 B-Natriuretic Peptide 143 H Albumin 2.3 L Procedures Date of Service Date of Service: 07/10/24 Progress Note: A&P Assessment and plan (1) S/P exploratory laparotomy: Status: Acute Assessment and Plan: Patient is doing well from exploratory lap for small bowel obstruction improving GI function us just said his p.o. intake is not as great. He is status post esophagectomy etc.. I think continuing to rehab and encouragement of high- calorie content is beneficial for him. We should try to optimize his p.o. ability to eat and drink before pushing for feeding tube Time Spent With Patient Time: Total time managing care of this patient today ____ minutes. Quality Stroke Does the patient have a stroke diagnosis?: No VTE Prior VTE?: No VTE Risk Level:: Medical - moderate - high VTE Device Contraindication: Treatment Not Indicated VTE Drug Contraindication: N/A - Med Ordered
--- NOTE | 2024-07-10 13:42 | HO.PM.IMPN ---
Subjective Subjective Date of Service: 07/10/24 Interval History: seen and examined this morning follow up for sbo s/p ex lap tolerating current diet, on PPM Review of Systems Review of Systems: Yes all other systems are reviewed and are negative Constitutional Constitutional: Denies chills and Denies fever(s) Cardiovascular Cardiovascular: Denies chest pain and Denies palpitations Endocrine Endocrine: Denies palpitations Physical Exam Vital Signs: Vital Signs: Last Vital Signs Temp 97.6 F 07/10/24 12:00 Pulse 73 07/10/24 12:00 Resp 16 07/10/24 12:00 BP 152/68 H 07/10/24 12:00 Pulse Ox 97 07/10/24 12:00 O2 Del Method Nasal Cannula 07/10/24 12:00 O2 Flow Rate 2 07/10/24 12:00 FiO2 30 07/03/24 16:00 BMI result Body Mass Index 25.5 Const: Other: frail General: no acute distress, alert and awake Nutritional Appearance: average body habitus Orientation/consciousness: patient oriented x3 Resp: Other: basilar crackles Effort & Inspection: normal respiratory effort, no respiratory distress and no use of accessory muscles Cardio: Rate: regular rate GI: Other: abdomen soft, non-distended; incision c/d Inspection: No distended Palpation (GI): Soft to palpation and nontender Neuro: General: patient oriented x3, moves all extremities and CN's II-XI intact bilaterally Objective Data Active Medications Benzocaine (Throat Lozenge, Medicated Lozenge) 1 lozenge MUCOUS MEM Q2H PRN PRN Reason: Sore Throat Calcium Carbonate (Calcium Carbonate 750 Mg Tab.Chew) 750 mg PO Q4H PRN PRN Reason: Heartburn Last Admin: 07/02/24 00:42 Dose: 750 mg Documented By: TOM Enoxaparin Sodium (Enoxaparin Sodium 40 Mg/0.4 Ml Syringe) 40 mg SUBCUT Q24H [facility] Last Admin: 07/09/24 12:39 Dose: 40 mg Documented By: ANGELES Gabapentin (Gabapentin 300 Mg Capsule) 600 mg PO BID [facility] Last Admin: 07/10/24 09:22 Dose: 600 mg Documented By: ANGELES Nutrition (Parenteral) (Parenteral Nutrition) 2,400 mls @ 100 mls/hr IV .Q24H [facility]; Protocol Stop: 07/10/24 20:59 Last Admin: 07/09/24 22:08 Dose: 100 mls/hr Documented By: JOSSIE Nutrition (Parenteral) (Parenteral Nutrition) 2,400 mls @ 100 mls/hr IV .Q24H [facility]; Protocol Stop: 07/11/24 20:59 Melatonin (Melatonin 3 Mg Tablet) 6 mg PO BEDTIME PRN PRN Reason: Insomnia Morphine Sulfate (Morphine Sulfate 4 Mg/Ml Cartridge) 2 mg IVPUSH Q4H PRN; Protocol PRN Reason: pain,severe Omeprazole (Omeprazole 40 Mg Capsule.Dr) 40 mg PO BID@0630,1630 [facility] Last Admin: 07/10/24 06:26 Dose: 40 mg Documented By: JOSSIE Ondansetron HCl (Ondansetron Hcl 4 Mg/2 Ml Vial) 4 mg IVPUSH Q4H PRN PRN Reason: Nausea and Vomiting Last Admin: 07/02/24 16:00 Dose: 4 mg Documented By: BAILEY Pharmacy Consult (Consult Rx Parenteral Nutrition Ordering) 1 each MISCELLANE DAILY PRN PRN Reason: Consult order Sodium Chloride (0.9 % Sodium Chloride Flush 3 Ml Syringe) 3 ml IVFLUSH QSHIFT [facility] Last Admin: 07/10/24 09:23 Dose: 3 ml Documented By: ANGELES Verapamil HCl (Verapamil Hcl Sr 240 Mg Tablet.Er) 240 mg PO DAILY [facility]; Protocol Last Admin: 07/10/24 09:22 Dose: 240 mg Documented By: ANGELES Labs 07/09/24 13:38 07/10/24 06:02 Labs: Laboratory Results - last 24 hr 07/09/24 07/10/24 13:38 06:02 MCV 86.4 MCH 28.0 MCHC 32.4 RDW 14.0 Plt Count 239 D MPV 11.0 Absolute Nucleated RBC 0.000 Nucleated RBC % (auto) 0.0 Anion Gap 11 L Estim Creat Clear Calc 86.3 Estimated GFR > 60 Random Glucose 118 H Calcium 8.3 L D Phosphorus 3.5 Magnesium 2.2 B-Natriuretic Peptide 143 H Albumin 2.3 L Assessment and Plan (1) S/P exploratory laparotomy: Status: Acute (2) Small bowel obstruction: Status: Acute Plan This is an 78yo male with 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], 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, prostate CA, peripheral neuropathy, HTN, GERD, and multiple SBOs presenting with N/V/abd pain and found to have high-grade SBO and went to OR 07/02 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>very poor prognosis for PO intake given complex hx of esophageal CA, unilateral vocal cord paralysis & pharyngeal dysphagia w/aspiration clear liquid diet, nectar thickening as per pt preference, Ensure TID started PPN 07/07/24 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 overall remains net + but BNP low and not enough po intake to stop PPN imaging similar to previous with ?RUL airspace opacities - possible aspiration and atelectasis also h/o tobacco use, asbestos exposure & previous radiation white count resolved, oxygen requirements stable no abx indicated at this time incentive spirometry, out of bed to chair and ambulation when able, strict Is&os wean oxygen as tolerated JUAN suspect due to operation/anesthesia resolved after IV fluid hydration HTN with elevated blood pressure readings verapamil peripheral neuropathy gabapentin GERD PPI VTE prophylaxis enoxaparin Full code dispo PT eval: STR requires ongoing inpatient stay for PPN due to decreased po intake/post surgical care. Quality Stroke Does the patient have a stroke diagnosis?: No VTE Prior VTE?: No VTE Risk Level:: Medical - moderate - high VTE Device Contraindication: Treatment Not Indicated VTE Drug Contraindication: N/A - Med Ordered
[2024-07-10] MEDS: Enoxaparin Sodium 40 MG/0.4 ML SYRINGE SUBCUT (14:19)
[2024-07-10] MEDS: Throat Lozenge, Medicated LOZENGE 1 LOZENGE MUCOUS MEM (16:30)
[2024-07-10] MEDS: Parenteral Nutrition 2,400 ML 100 ML IV (21:39)
[2024-07-11] VITALS (8 sets, daily range): BP systolic 109–157; BP diastolic 58–79; PULSE 67–86; RESP 16–19; TEMP 36.1–36.6; O2SAT 93–95
[2024-07-11] MEDS: Omeprazole 40 MG CAPSULE.DR PO ×2 (05:48→17:11)
[2024-07-11 06:59] LABS: Albumin Level 2.5 g/dL (3.5-5.0); Anion Gap 13 (12-20); Blood Urea Nitrogen 16 mg/dL (9-16); Carbon Dioxide 24 mmol/L (22-29); Chloride 105 mmol/L (96-108); Estimated Glomerular Filt Rate > 60; Glucose Random 113 mg/dL (60-115); Magnesium 2.1 mg/dL (1.6-2.6); Potassium 4.9 mmol/L (3.3-5.1); Sodium 137 mmol/L (135-145)
--- NOTE | 2024-07-11 09:00 | HO.PM.IMPN ---
Subjective Subjective Date of Service: 07/11/24 Interval History: seen and examined this morning follow up for sbo s/p ex lap tolerating current diet, on PPN Review of Systems Review of Systems: Yes all other systems are reviewed and are negative Constitutional Constitutional: Denies chills and Denies fever(s) Cardiovascular Cardiovascular: Denies chest pain and Denies palpitations Endocrine Endocrine: Denies palpitations Physical Exam Vital Signs: Vital Signs: Last Vital Signs Temp 97.7 F 07/11/24 07:40 Pulse 72 07/11/24 07:40 Resp 18 07/11/24 07:40 BP 129/79 07/11/24 07:40 Pulse Ox 93 07/11/24 07:40 O2 Del Method Nasal Cannula 07/11/24 07:40 O2 Flow Rate 2 07/11/24 07:40 FiO2 30 07/03/24 16:00 BMI result Body Mass Index 25.5 Appearing in no acute distress lung sounds are clear to auscultation heart regular rate rhythm, clear S1, S2 positive bowel sounds, abdomen is soft, nontender neuro patient is alert x3, no focal deficits Objective Data Active Medications Benzocaine (Throat Lozenge, Medicated Lozenge) 1 lozenge MUCOUS MEM Q2H PRN PRN Reason: Sore Throat Last Admin: 07/10/24 16:30 Dose: 1 lozenge Documented By: ANGELES Calcium Carbonate (Calcium Carbonate 750 Mg Tab.Chew) 750 mg PO Q4H PRN PRN Reason: Heartburn Last Admin: 07/02/24 00:42 Dose: 750 mg Documented By: TOM Enoxaparin Sodium (Enoxaparin Sodium 40 Mg/0.4 Ml Syringe) 40 mg SUBCUT Q24H [facility] Last Admin: 07/10/24 14:19 Dose: 40 mg Documented By: ANGELES Gabapentin (Gabapentin 300 Mg Capsule) 600 mg PO BID [facility] Last Admin: 07/10/24 21:38 Dose: 600 mg Documented By: JOSSIE Nutrition (Parenteral) (Parenteral Nutrition) 2,400 mls @ 100 mls/hr IV .Q24H [facility]; Protocol Stop: 07/11/24 20:59 Last Infusion: 07/11/24 08:32 Dose: 0 mls/hr Documented By: TEE Melatonin (Melatonin 3 Mg Tablet) 6 mg PO BEDTIME PRN PRN Reason: Insomnia Morphine Sulfate (Morphine Sulfate 4 Mg/Ml Cartridge) 2 mg IVPUSH Q4H PRN; Protocol PRN Reason: pain,severe Omeprazole (Omeprazole 40 Mg Capsule.) 40 mg PO BID@0630,1630 [facility] Last Admin: 07/11/24 05:48 Dose: 40 mg Documented By: JOSSIE Ondansetron HCl (Ondansetron Hcl 4 Mg/2 Ml Vial) 4 mg IVPUSH Q4H PRN PRN Reason: Nausea and Vomiting Last Admin: 07/02/24 16:00 Dose: 4 mg Documented By: BAILEY Pharmacy Consult (Consult Rx Parenteral Nutrition Ordering) 1 each MISCELLANE DAILY PRN PRN Reason: Consult order Sodium Chloride (0.9 % Sodium Chloride Flush 3 Ml Syringe) 3 ml IVFLUSH QSHIFT [facility] Last Admin: 07/11/24 07:12 Dose: Not Given Documented By: TEE Non-Admin Reason: IV Running Verapamil HCl (Verapamil Hcl Sr 240 Mg Tablet.Er) 240 mg PO DAILY [facility]; Protocol Last Admin: 07/10/24 09:22 Dose: 240 mg Documented By: ANGELES Labs 07/09/24 13:38 07/11/24 05:51 Labs: Laboratory Results - last 24 hr 07/11/24 05:51 Anion Gap 13 Estim Creat Clear Calc 89.0 Estimated GFR > 60 Random Glucose 113 Calcium 9.0 D Phosphorus 4.0 Magnesium 2.1 Albumin 2.5 L Assessment and Plan (1) S/P exploratory laparotomy: Status: Acute (2) Small bowel obstruction: Status: Acute Plan This is an 78yo male with 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], 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, prostate CA, peripheral neuropathy, HTN, GERD, and multiple SBOs presenting with N/V/abd pain and found to have high-grade SBO and went to OR 07/02 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>very poor prognosis for PO intake given complex hx of esophageal CA, unilateral vocal cord paralysis & pharyngeal dysphagia w/aspiration clear liquid diet, nectar thickening as per pt preference, Ensure TID started PPN 07/07/24 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 overall remains net + but BNP low and not enough po intake to stop PPN imaging similar to previous with ?RUL airspace opacities - possible aspiration and atelectasis also h/o tobacco use, asbestos exposure & previous radiation white count resolved, oxygen requirements stable no abx indicated at this time incentive spirometry, out of bed to chair and ambulation when able, strict Is&os wean oxygen as tolerated JUAN suspect due to operation/anesthesia resolved after IV fluid hydration HTN with elevated blood pressure readings verapamil peripheral neuropathy gabapentin GERD PPI VTE prophylaxis enoxaparin Attending Dr. Arambula Full code dispo PT eval: STR requires ongoing inpatient stay for PPN due to decreased po intake/post surgical care. Quality Stroke Does the patient have a stroke diagnosis?: No VTE Prior VTE?: No VTE Risk Level:: Medical - moderate - high VTE Device Contraindication: Treatment Not Indicated VTE Drug Contraindication: N/A - Med Ordered
[2024-07-11] MEDS: VerapamiL HCL SR 240 MG TABLET.ER PO (09:18)
[2024-07-11] MEDS: Gabapentin 300 MG CAPSULE 600 MG PO ×2 (09:18→21:07)
--- NOTE | 2024-07-11 09:21 | MHC.CLN ---
F/U PPN STARTED 07/07. DIET ADVANCED 07/09 TO GROUND WITH ENSURE TID. TOLERATING CURRNET DIET. REVIEWED LABS. COMMUNICATED WITH PHARMACY AND PROVIDER. RECOMMEND CONTINUE PPN AT MAX GOAL RATE: PPN AT 100 ML PER HOUR ADD 68 G LIPIDS TO PROVIDE 1904 TOTAL KCALS (25 KCALS/KG), 240 G DEXTROSE, 102 G PROTEIN (1.3 G/KG). REPLETE LYTES NEEDED. ADJUST PPN NEEDED WITH PO INTAKE.
--- NOTE | 2024-07-11 09:50 | PC.NURSE ---
Attempt IV placement x2, unsuccessful. Primary RN notified.
--- NOTE | 2024-07-11 10:11 | MHC.SL.SWA ---
Addendum entered and electronically signed by Shu Elizalde MA, CCC-CATEGORY ANALYST 07/11/24 16:53: Edit: Pills to be taken WHOLE w/ LIQUID Original Note: Speech Pathologist Impression: Moderate to significant pharyngeal/esophageal dysphagia Risk of Aspiration Due to: Medically Fragile History of esophageal CA Hx of aspiration PNA Poor PO Intake Weak Cough Presence of unilateral VC paralysis Dysphasia Diet Status: Liquid Consistency and Strategies for Safe Swallow: Liquid Intake Recommendation: Thin Liquid Intake Strategies: Small Sips Double Swallow Solid Food Consistency: Dietary Recommendations: Grnd/Mech Altered (NDD2) Additional Modifications to Solid Foods: Oral Medication Intake: Please contact the pharmacy regarding appropriate crushable or liquid drug formulations that are available whenever modified delivery is recommended. Compensatory Strategies and Precautions to be Taken for Safe Swallow: Sitting Upright (90 deg) Alternate Liquids/Solids Rate of Ingestion Change Supervision While Eating and Drinking for Safe Swallow: Intermittent Supervision Foods to Avoid: Swallowing Recommended Treatments: Compens. Strategy Educat. Recommendation for Speech: Further Testing Needed Comment: Pt has significant hx of esophageal dysphagia and variable mild to moderate pharyngeal phase dysphagia, remaining at elevated risk for recurrent aspiration PNA. Pt is aware and able to use safety precautions to reduce his risk, but prognosis remains poor for safe and adequate resumption of PO intake. Recc continued CATEGORY ANALYST intervention to support dysphagia management. Frequency/Duration: daily inpatient Date Range for Service Req: Timeline to reassess: Inventory Auditor Clinican/Clinical Fellow: No Supervisory Statement: I have reviewed and agree with the student/clinical fellow's documentation: N/A Speech Language Pathologist: Ranjana Fontaine M.S., CCC-CATEGORY ANALYST
--- NOTE | 2024-07-11 12:56 | MHC.CM.PN ---
pr rounds pt not ready for dc dc plan remains str [facility]
[2024-07-11] MEDS: Enoxaparin Sodium 40 MG/0.4 ML SYRINGE SUBCUT (14:06)
[2024-07-11] MEDS: Parenteral Nutrition 2,400 ML 100 ML IV (21:07)
[2024-07-12] VITALS (7 sets, daily range): BP systolic 107–149; BP diastolic 59–75; PULSE 68–82; RESP 17–19; TEMP 36.2–36.7; O2SAT 93–96
[2024-07-12] MEDS: Omeprazole 40 MG CAPSULE.DR PO ×2 (05:42→17:20)
[2024-07-12 07:05] LABS: Albumin Level 2.6 g/dL (3.5-5.0); Anion Gap 13 (12-20); Blood Urea Nitrogen 17 mg/dL (9-16); Calcium 9.2 mg/dL (8.4-10.2); Carbon Dioxide 23 mmol/L (22-29); Chloride 105 mmol/L (96-108); Creatinine Clr Calc Pharmacy 79.1; Estimated Glomerular Filt Rate > 60; Glucose Random 114 mg/dL (60-115); Magnesium 2.2 mg/dL (1.6-2.6); Phosphorus 4.6 mg/dL (2.7-4.5); Sodium 136 mmol/L (135-145)
[2024-07-12] MEDS: Gabapentin 300 MG CAPSULE 600 MG PO ×2 (08:26→20:50)
[2024-07-12] MEDS: VerapamiL HCL SR 240 MG TABLET.ER PO (08:26)
--- NOTE | 2024-07-12 08:44 | HO.PM.IMPN ---
Subjective Subjective Date of Service: 07/12/24 Interval History: seen and examined this morning follow up for sbo s/p ex lap tolerating current diet, stopped PPN Review of Systems Review of Systems: Yes all other systems are reviewed and are negative Constitutional Constitutional: Denies chills and Denies fever(s) Cardiovascular Cardiovascular: Denies chest pain and Denies palpitations Endocrine Endocrine: Denies palpitations Physical Exam Vital Signs: Vital Signs: Last Vital Signs Temp 97.7 F 07/12/24 07:51 Pulse 75 07/12/24 08:26 Resp 17 07/12/24 07:51 BP 149/70 H 07/12/24 08:26 Pulse Ox 95 07/12/24 07:51 O2 Del Method Nasal Cannula 07/12/24 07:51 O2 Flow Rate 2 07/12/24 07:51 FiO2 30 07/03/24 16:00 BMI result Body Mass Index 25.5 Appearing in no acute distress lung sounds are clear to auscultation heart regular rate rhythm, clear S1, S2 positive bowel sounds, abdomen is soft, nontender neuro patient is alert x3, no focal deficits Objective Data Active Medications Benzocaine (Throat Lozenge, Medicated Lozenge) 1 lozenge MUCOUS MEM Q2H PRN PRN Reason: Sore Throat Last Admin: 07/10/24 16:30 Dose: 1 lozenge Documented By: ANGELES Calcium Carbonate (Calcium Carbonate 750 Mg Tab.Chew) 750 mg PO Q4H PRN PRN Reason: Heartburn Last Admin: 07/02/24 00:42 Dose: 750 mg Documented By: TOM Enoxaparin Sodium (Enoxaparin Sodium 40 Mg/0.4 Ml Syringe) 40 mg SUBCUT Q24H [facility] Last Admin: 07/11/24 14:06 Dose: 40 mg Documented By: TEE Gabapentin (Gabapentin 300 Mg Capsule) 600 mg PO BID [facility] Last Admin: 07/12/24 08:26 Dose: 600 mg Documented By: TEE Nutrition (Parenteral) (Parenteral Nutrition) 2,400 mls @ 100 mls/hr IV .Q24H [facility]; Protocol Stop: 07/12/24 20:59 Last Admin: 07/11/24 21:07 Dose: 100 mls/hr Documented By: CHRISTINARISKetty Melatonin (Melatonin 3 Mg Tablet) 6 mg PO BEDTIME PRN PRN Reason: Insomnia Morphine Sulfate (Morphine Sulfate 4 Mg/Ml Cartridge) 2 mg IVPUSH Q4H PRN; Protocol PRN Reason: pain,severe Omeprazole (Omeprazole 40 Mg Capsule.Dr) 40 mg PO BID@0630,1630 [facility] Last Admin: 07/12/24 05:42 Dose: 40 mg Documented By: RASHEED Ondansetron HCl (Ondansetron Hcl 4 Mg/2 Ml Vial) 4 mg IVPUSH Q4H PRN PRN Reason: Nausea and Vomiting Last Admin: 07/02/24 16:00 Dose: 4 mg Documented By: BAILEY Pharmacy Consult (Consult Rx Parenteral Nutrition Ordering) 1 each MISCELLANE DAILY PRN PRN Reason: Consult order Sodium Chloride (0.9 % Sodium Chloride Flush 3 Ml Syringe) 3 ml IVFLUSH QSHIFT [facility] Last Admin: 07/12/24 07:07 Dose: Not Given Documented By: TEE Non-Admin Reason: IV Running Verapamil HCl (Verapamil Hcl Sr 240 Mg Tablet.Er) 240 mg PO DAILY [facility]; Protocol Last Admin: 07/12/24 08:26 Dose: 240 mg Documented By: TEE Labs 07/09/24 13:38 07/12/24 06:39 Labs: Laboratory Results - last 24 hr 07/12/24 06:39 Hold Purple Top SEE NOTE Anion Gap 13 Estim Creat Clear Calc 79.1 Estimated GFR > 60 Random Glucose 114 Calcium 9.2 Phosphorus 4.6 H Magnesium 2.2 Albumin 2.6 L Assessment and Plan (1) S/P exploratory laparotomy: Status: Acute (2) Small bowel obstruction: Status: Acute Plan 78yo male with 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], 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, prostate CA, peripheral neuropathy, HTN, GERD, and multiple SBOs presenting with N/V/abd pain and found to have high-grade SBO and went to OR 07/02 Dysphagia [employer]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 Resolved initially due to pulm edema as above. imaging similar to previous with ?RUL airspace opacities - possible aspiration and atelectasis also h/o tobacco use, asbestos exposure & previous radiation incentive spirometry, out of bed to chair and ambulation when able, strict Is&os wean oxygen as tolerated JUAN suspect due to operation/anesthesia resolved after IV fluid hydration Hypokalemia Repleted and resolved HTN with elevated blood pressure readings verapamil peripheral neuropathy gabapentin GERD PPI VTE prophylaxis enoxaparin Attending Dr. Arambula Full code dispo PT eval: STR vs home. Patient would prefer home with PT Quality Stroke Does the patient have a stroke diagnosis?: No VTE Prior VTE?: No VTE Risk Level:: Medical - moderate - high VTE Device Contraindication: Treatment Not Indicated VTE Drug Contraindication: N/A - Med Ordered
--- NOTE | 2024-07-12 09:04 | PM.PNGS ---
Subjective Subjective Date of Service: 07/12/24 Interval history: Denies abd pain. Passing flatus, BM yesterday. Reevaluated by speech and diet advanced yesterday. He reports poor appetite but tolerating solid diet. Reports breathing is almost back to baseline. Activity remains limited. Physical Exam Vital Signs: Vital Signs: Last Vital Signs Temp 97.7 F 07/12/24 07:51 Pulse 75 07/12/24 08:26 Resp 17 07/12/24 07:51 BP 149/70 H 07/12/24 08:26 Pulse Ox 95 07/12/24 07:51 O2 Del Method Nasal Cannula 07/12/24 07:51 O2 Flow Rate 2 07/12/24 07:51 FiO2 30 07/03/24 16:00 BMI result Body Mass Index 25.5 Const: General: comfortable, no acute distress and alert Resp: Effort & Inspection: not able to speak in complete sentences GI: Inspection: Yes incision (clean) Palpation (GI): Soft to palpation and no guarding Skin: General skin exam: no rashes or lesions noted Objective Data Active Medications Benzocaine (Throat Lozenge, Medicated Lozenge) 1 lozenge MUCOUS MEM Q2H PRN PRN Reason: Sore Throat Last Admin: 07/10/24 16:30 Dose: 1 lozenge Documented By: ANGELES Calcium Carbonate (Calcium Carbonate 750 Mg Tab.Chew) 750 mg PO Q4H PRN PRN Reason: Heartburn Last Admin: 07/02/24 00:42 Dose: 750 mg Documented By: TOM Enoxaparin Sodium (Enoxaparin Sodium 40 Mg/0.4 Ml Syringe) 40 mg SUBCUT Q24H [facility] Last Admin: 07/11/24 14:06 Dose: 40 mg Documented By: TEE Gabapentin (Gabapentin 300 Mg Capsule) 600 mg PO BID [facility] Last Admin: 07/12/24 08:26 Dose: 600 mg Documented By: TEE Melatonin (Melatonin 3 Mg Tablet) 6 mg PO BEDTIME PRN PRN Reason: Insomnia Morphine Sulfate (Morphine Sulfate 4 Mg/Ml Cartridge) 2 mg IVPUSH Q4H PRN; Protocol PRN Reason: pain,severe Omeprazole (Omeprazole 40 Mg Capsule.) 40 mg PO BID@0630,1630 [facility] Last Admin: 07/12/24 05:42 Dose: 40 mg Documented By: RASHEED Ondansetron HCl (Ondansetron Hcl 4 Mg/2 Ml Vial) 4 mg IVPUSH Q4H PRN PRN Reason: Nausea and Vomiting Last Admin: 07/02/24 16:00 Dose: 4 mg Documented By: BAILEY Pharmacy Consult (Consult Rx Parenteral Nutrition Ordering) 1 each MISCELLANE DAILY PRN PRN Reason: Consult order Sodium Chloride (0.9 % Sodium Chloride Flush 3 Ml Syringe) 3 ml IVFLUSH QSHIFT [facility] Last Admin: 07/12/24 07:07 Dose: Not Given Documented By: TEE Non-Admin Reason: IV Running Verapamil HCl (Verapamil Hcl Sr 240 Mg Tablet.Er) 240 mg PO DAILY [facility]; Protocol Last Admin: 07/12/24 08:26 Dose: 240 mg Documented By: TEE Labs 07/09/24 13:38 07/12/24 06:39 Labs: Laboratory Results - last 24 hr 07/12/24 06:39 Hold Purple Top SEE NOTE Anion Gap 13 Estim Creat Clear Calc 79.1 Estimated GFR > 60 Random Glucose 114 Calcium 9.2 Phosphorus 4.6 H Magnesium 2.2 Albumin 2.6 L Procedures Date of Service Date of Service: 07/12/24 Progress Note: A&P Assessment and plan (1) S/P exploratory laparotomy: Status: Acute Plan No acute surgical issues, obstruction resolved. Abd benign. Reevaluated by speech yesterday and diet advanced. PPN being discontinued. Overall improved and surgically stable for discharge when medically cleared. He can f/u in the office in 1 week following discharge. Time Spent With Patient Time: Total time managing care of this patient today ____ minutes. Quality Stroke Does the patient have a stroke diagnosis?: No VTE Prior VTE?: No VTE Risk Level:: Medical - moderate - high VTE Device Contraindication: Treatment Not Indicated VTE Drug Contraindication: N/A - Med Ordered
--- NOTE | 2024-07-12 10:52 | MHC.CLN ---
F/U DIET ADVANCED 07/09 TO GROUND WITH ENSURE TID PO INTAKE 25% X 2 MEALS SUPPLEMENT PROVIDES 1050KCALS, 60G PROTEIN WITH 100% ACCEPTANCE D/C PPN PER PROVIDER-PHARMACY AWARE MONITOR PO INTAKE AND ENCOURAGE SUPPLEMENTS
[2024-07-12] MEDS: Enoxaparin Sodium 40 MG/0.4 ML SYRINGE SUBCUT (13:28)
[2024-07-12] MEDS: 0.9 % Sodium Chloride Flush 3 ML SYRINGE IVFLUSH ×2 (17:20→20:50)
[2024-07-13 03:20] VITALS: BP 143/77; PULSE 73; RESP 18; TEMP 36.4; O2SAT 95
[2024-07-13] MEDS: Omeprazole 40 MG CAPSULE.DR PO ×2 (05:32→16:16)
[2024-07-13 07:01] LABS: Albumin Level 2.6 g/dL (3.5-5.0); Anion Gap 12 (12-20); Blood Urea Nitrogen 16 mg/dL (9-16); Calcium 8.9 mg/dL (8.4-10.2); Carbon Dioxide 24 mmol/L (22-29); Chloride 106 mmol/L (96-108); Estimated Glomerular Filt Rate > 60; Glucose Random 94 mg/dL (60-115); Magnesium 2.1 mg/dL (1.6-2.6); Phosphorus 4.3 mg/dL (2.7-4.5); Potassium 4.4 mmol/L (3.3-5.1); Sodium 138 mmol/L (135-145)
[2024-07-13 07:47] VITALS: BP 132/60; PULSE 76; RESP 19; TEMP 36.6; O2SAT 93
--- NOTE | 2024-07-13 07:47 | PM.PNGS ---
Subjective Subjective Date of Service: 07/13/24 Interval history: Patient had uneventful evening. P.o. intake is improving with solids. He is passing flatus and stool. Physical Exam Vital Signs: Vital Signs: Last Vital Signs Temp 97.6 F 07/13/24 03:20 Pulse 73 07/13/24 03:20 Resp 18 07/13/24 03:20 BP 143/77 H 07/13/24 03:20 Pulse Ox 95 07/13/24 03:20 O2 Del Method Nasal Cannula 07/13/24 03:20 O2 Flow Rate 2 07/13/24 03:20 FiO2 30 07/03/24 16:00 BMI result Body Mass Index 25.5 GI: Other: Abdomen is soft. Incision clean dry and intact healing well Objective Data Active Medications Benzocaine (Throat Lozenge, Medicated Lozenge) 1 lozenge MUCOUS MEM Q2H PRN PRN Reason: Sore Throat Last Admin: 07/10/24 16:30 Dose: 1 lozenge Documented By: ANGELES Calcium Carbonate (Calcium Carbonate 750 Mg Tab.Chew) 750 mg PO Q4H PRN PRN Reason: Heartburn Last Admin: 07/02/24 00:42 Dose: 750 mg Documented By: TOM Enoxaparin Sodium (Enoxaparin Sodium 40 Mg/0.4 Ml Syringe) 40 mg SUBCUT Q24H [facility] Last Admin: 07/12/24 13:28 Dose: 40 mg Documented By: TEE Gabapentin (Gabapentin 300 Mg Capsule) 600 mg PO BID [facility] Last Admin: 07/12/24 20:50 Dose: 600 mg Documented By: RASHEED Melatonin (Melatonin 3 Mg Tablet) 6 mg PO BEDTIME PRN PRN Reason: Insomnia Morphine Sulfate (Morphine Sulfate 4 Mg/Ml Cartridge) 2 mg IVPUSH Q4H PRN; Protocol PRN Reason: pain,severe Omeprazole (Omeprazole 40 Mg Capsule.) 40 mg PO BID@0630,1630 [facility] Last Admin: 07/13/24 05:32 Dose: 40 mg Documented By: RASHEED Ondansetron HCl (Ondansetron Hcl 4 Mg/2 Ml Vial) 4 mg IVPUSH Q4H PRN PRN Reason: Nausea and Vomiting Last Admin: 07/02/24 16:00 Dose: 4 mg Documented By: BAILEY Pharmacy Consult (Consult Rx Parenteral Nutrition Ordering) 1 each MISCELLANE DAILY PRN PRN Reason: Consult order Sodium Chloride (0.9 % Sodium Chloride Flush 3 Ml Syringe) 3 ml IVFLUSH QSHIFT [facility] Last Admin: 07/12/24 20:50 Dose: 3 ml Documented By: CHRISTINARISKetty Verapamil HCl (Verapamil Hcl Sr 240 Mg Tablet.Er) 240 mg PO DAILY [facility]; Protocol Last Admin: 07/12/24 08:26 Dose: 240 mg Documented By: TEE Labs 07/09/24 13:38 07/13/24 05:49 Labs: Laboratory Results - last 24 hr 07/13/24 05:49 Anion Gap 12 Estim Creat Clear Calc 73.0 Estimated GFR > 60 Random Glucose 94 Calcium 8.9 Phosphorus 4.3 Magnesium 2.1 Albumin 2.6 L Procedures Date of Service Date of Service: 07/13/24 Progress Note: A&P Assessment and plan (1) S/P exploratory laparotomy: Status: Acute Plan Continue diet and supplements as tolerated, out of bed, PT, I discussed with the patient consideration for ECF placement which he will consider. Incentive spirometry, wean O2 as tolerated Time Spent With Patient Time: Total time managing care of this patient today ____ minutes. Quality Stroke Does the patient have a stroke diagnosis?: No VTE Prior VTE?: No VTE Risk Level:: Medical - moderate - high VTE Device Contraindication: Treatment Not Indicated VTE Drug Contraindication: N/A - Med Ordered
[2024-07-13 08:07] VITALS: BP 132/60; PULSE 76; O2SAT 93
[2024-07-13] MEDS: VerapamiL HCL SR 240 MG TABLET.ER PO (08:23)
[2024-07-13] MEDS: Gabapentin 300 MG CAPSULE 600 MG PO (08:24)
[2024-07-13] MEDS: 0.9 % Sodium Chloride Flush 3 ML SYRINGE IVFLUSH (08:26)
--- NOTE | 2024-07-13 10:19 | P.DS_ITS ---
DS: Providers Provider Date of Service: 07/13/24 Date of admission: 07/01/24 13:06 Date of discharge: 07/13/24 Primary care physician: Matthew Hirsch DO Consults: 07/01/24 13:11 Consult to General Surgery Routine Consulting Provider: [facility] Reason for consultation: SBO Has provider been notified: Yes DS: Diagnosis Discharge Diagnosis (1) S/P exploratory laparotomy: Status: Acute DS: Summary Hospital Course Hospital Course: from initial hpi: 78-year-old male with a PMH significant for?esophageal adenocarcinoma s/p distal esophagectomy with gastric pull-through and 2019 with recurrence 2021 s/p chemo, hx of prostate cancer, peripheral neuropathy, HTN, hx of multiple SBOS, and GERD who presents to the ED with?lower abdominal pain, nausea, vomiting since 02:30. Patient has a history of 5-6 episodes of small-bowel obstruction since 2019, and reports symptoms are similar to previous. CT of abdomen and pelvis found high- grade SBO with transition point in left upper abdominal quadrant. Insertion of NGT was attempted x2, but aborted due to pain and nasal bleed. Patient notes has had 2 small formed bowel movements while in the ED and has been passing gas. Abdominal pain currently well-controlled, but it continues to have some nausea and vomiting. General surgery was consulted who recommended admitting patient to Medicine, keeping NPO, and holding off on NGT for now. Chronic cough at baseline. Denies shortness or breath or difficulty breathing. No chest pain/pressure, palpitations. Of note, patient reports has been having increased sore throat and difficulty swallowing for the past 6 months, and often feels like he has food stuck in his throat. Reports eats a normal diet but avoid certain foods that are course and thin such as coleslaw. In the ED pt was tachycardic up to 115, tachypneic up to 21, satting at 92% on RA. Labs were significant for alk-phos slightly elevated at 134, otherwise grossly unremarkable and baseline for patient. No significant leukocytosis. Stable H&H. No significant electrolyte abnormalities. Renal function baseline. Troponin negative. CT?of abdomen and pelvis found high-grade SBO with trans ition point in left upper abdominal quadrant. EKG demonstrated normal sinus rhythm with RBBB but no evidence of significant ST elevations or depressions. Pt was treated with ondansetron and morphine. Pt will be admitted to the hospital for treatment and further evaluation of small-bowel obstruction. hospital course: Patient was admitted for small-bowel obstruction. Underwent exploratory laparot arturo with extensive enterolysis and adhesiolysis on 07/02. NG tube was removed on 07/03. Was given TPN, diet was slowly advanced and is now tolerating with bowel movements and flatus. For dysphagia was seen by speech therapy who advanced patient to mechanical ground diet. Course complicated by acute on chronic diastolic CHF with acute hypoxic respiratory failure requiring high- flow, patient diuresed well and is now on room air. For acute kidney injury postop likely prerenal, resolved. Acute hypokalemia resolved. For hypertension was continued on verapamil. For peripheral neuropathy continue on gabapentin. For GERD continued on PPI. Patient is medically stable will be discharged home. Time Attestation Discharge Coordination Time (in mins): 34 Quality: Safe Use of Opioids Does Pt have an Active Cancer Diagnosis on the Problem List?: Yes Opioid Measure Date for [facility] Report: 06/13/24 Opioid Measure Time for [facility] Report: 10:43 Quality: Stroke Does the patient have a stroke diagnosis?: No Physical Exam Vital Signs: Vital Signs: Last Vital Signs Temp 97.8 F 07/13/24 07:47 Pulse 76 07/13/24 08:07 Resp 19 07/13/24 07:47 BP 132/60 07/13/24 08:07 Pulse Ox 93 07/13/24 08:07 O2 Del Method Room Air 07/13/24 07:47 O2 Flow Rate 2 07/13/24 03:20 FiO2 30 07/03/24 16:00 BMI result Body Mass Index 25.5 GI: Other: Abdomen is soft. Incision clean dry and intact healing well DS: Data Data Completed and Pending Completed studies during hospitalization [Text1]: Procedures Drainage of Mediastinum, Percutaneous Approach, Diagnostic (11/27/21) Excision of Mediastinum, Percutaneous Approach, Diagnostic (11/27/21) Labs on day of discharge: Laboratory Results - last 24 hr 07/13/24 05:49 Sodium 138 Potassium 4.4 Chloride 106 Carbon Dioxide 24 Anion Gap 12 BUN 16 Creatinine 0.78 Estim Creat Clear Calc 73.0 Estimated GFR > 60 Random Glucose 94 Calcium 8.9 Phosphorus 4.3 Magnesium 2.1 Albumin 2.6 L Discharge Plan Discharge Anticipated Discharge Date/Time: 07/13/24 10:17 Patient Disposition: Home Health Service Discharge Diagnosis: sbo [facility]errals: [facility] [Other] - 1 Week Matthew Hirsch DO [Primary Care Provider] - 1 Week Leonel Alberto MD [Physician] - 1 Week Discharge Medications: Continued omeprazole 40 mg Capsule,Delayed Release(Dr/Ec) 40 mg PO BID@0630,1630 gabapentin 300 mg capsule 600 mg PO BID verapamil 240 mg capsule,ext rel. pellets 24 hr 240 mg PO DAILY polyethylene glycol 3350 17 gram Powder In Packet 17 g PO DAILY Qty: 30 0RF multivitamin Tablet 1 tab PO DAILY docusate sodium 100 mg Tablet 100 mg PO BID Discharge Orders: Discharge Order (Routine); Ordered 07/13/24 Ordered By: Marvin Belle Diet: NDD2 solids, thin liq Activity on Discharge: As tolerated Stand Alone Forms: Patient Portal Discharge page Print Language: Mongolian Care Plan Goals: recovery Health Concerns: sbo Plan of Treatment: continued modified diet, follow up with surgery Assessment: see above Ice to wound 20 minutes several times today and tomorrow. May shower. Leave Steri-Strips intact. No strenuous activities
--- NOTE | 2024-07-13 10:31 | MHC.CM.PN ---
[pt dcd home with [facility]
--- NOTE | 2024-07-13 10:42 | W.MHC.F2F ---
Service Date Service Date: 07/13/24 Encounter Date of encounter: 07/13/24 Reasons for Services Signs and symptoms assessed: weakness Reason for retirement: medication management, medication treatment and teach disease management Reason for physical therapy: home safety and mobility and therapeutic exercises Homebound: Leaving the home is medically contraindicated at this time without the asist of a device and/or another person due th the listed conditions above and below. Reason homebound: unsteady gait / fall risk Certification: Based on the above findings, I certify that this patient is confined to the home and needs intermittent retirement care, physical therapy and/or speech therapy, or continues to need occupational therapy. The patient is under my care, and I have initiated the establishment of the plan of care. The patient will be followed by a physician who will periodically review the plan of care. Time Spent With Patient Time: Total time managing care of this patient today ____ minutes.
[2024-07-13 11:40] VITALS: BP 112/53; PULSE 70; RESP 17; TEMP 36.5; O2SAT 92
[2024-07-13] MEDS: Enoxaparin Sodium 40 MG/0.4 ML SYRINGE SUBCUT (12:22)
--- NOTE | 2024-07-13 15:12 | MHC.CM.PN ---
[facility] does not have speech therapy which is on f2f t/w notified dr sandoval he will write a script for pt to go outpt speech
[2024-07-13 15:27] VITALS: BP 122/59; PULSE 90; RESP 18; TEMP 37.4; O2SAT 95
--- NOTE | 2024-07-13 16:15 | MHC.CLN ---
F/U DIET=GROUND WITH ENSURE TID APPEARS TO BE TOLERATING DIET. SUPPLEMENT PROVIDES 1050KCALS, 60G PROTEIN WITH 100% ACCEPTANCE. MONITOR PO INTAKE AND ENCOURAGE SUPPLEMENTS.
== END 2024-07-13 16:54 | disposition home health service (06) | DRG 335 ==
LOC: HO.ED 06:28 → HO.EDOVER 13:15 → HO.S3 13:47 → HO.IMC 07-02 15:27 → HO.S3 07-08 10:33
PROVIDERS: Family Medicine; Physician Assistant Medical; Surgery; Admitting Provider Student in an Organized Health Care Education/Training Program; Emergency Provider Emergency Medicine; PCP Internal Medicine; Visit Provider Internal Medicine
PROC: 0DN80ZZ Release Small Intestine, Open Approach (ICD-10-PCS; CPT 49000; principal; 2024-07-02 10:00)
DX: K56.52 Intestinal adhesions [bands] with complete obstruction (principal); I50.33 Acute on chronic diastolic (congestive) heart failure; J96.01 Acute respiratory failure with hypoxia; J81.0 Acute pulmonary edema; N17.9 Acute kidney failure, unspecified; J98.11 Atelectasis; R13.10 Dysphagia, unspecified; E87.6 Hypokalemia; I11.0 Hypertensive heart disease with heart failure; G62.9 Polyneuropathy, unspecified; K21.9 Gastro-esophageal reflux disease without esophagitis; Z20.822 Contact with and (suspected) exposure to COVID-19; Z85.46 Personal history of malignant neoplasm of prostate; Z85.01 Personal history of malignant neoplasm of esophagus; Z87.891 Personal history of nicotine dependence; Z79.899 Other long term (current) drug therapy
CPT/HCPCS: 0241U; 36415; 71045; 71046; 74176; 74250; 80048; 80053; 81001; 82040; 83690; 83735; 83880; 84100; 84478; 84484; 85027; 92526; 92610; 93005; 93306; 97116; 97162; 97530; 99285; C1758; J0131; J0690; J1100; J1650; J1920; J1940; J2003; J2250; J2270; J2405; J2470; J2704; J2795; J3010; J7120; Q9957

== ENCOUNTER → 2024-07-01 03:48 | Outpatient (BNV) | payer MEDICARE, SELFPAY | PROVIDERS: Emergency Provider Emergency Medicine; PCP Internal Medicine; Visit Provider Internal Medicine Cardiovascular Disease | DX: R94.31 Abnormal electrocardiogram [ECG] [EKG] (principal) | CPT/HCPCS: 93010 ==

== ENCOUNTER 2024-07-01 13:06 | Outpatient (BNV) | payer MEDICARE, SELFPAY | END 2024-07-01 14:20 | PROVIDERS: Admitting Provider Student in an Organized Health Care Education/Training Program; Emergency Provider Emergency Medicine; PCP Internal Medicine; Visit Provider Radiology Diagnostic Radiology | DX: K56.601 Complete intestinal obstruction, unspecified as to cause (principal) | CPT/HCPCS: 74250 ==

== ENCOUNTER 2024-07-01 13:06 | Outpatient (BNV) | payer MEDICARE, SELFPAY | END 2024-07-04 07:00 | PROVIDERS: Admitting Provider Student in an Organized Health Care Education/Training Program; Emergency Provider Emergency Medicine; PCP Internal Medicine; Visit Provider Internal Medicine | DX: I35.1 Nonrheumatic aortic (valve) insufficiency (principal); I35.8 Other nonrheumatic aortic valve disorders; I51.89 Other ill-defined heart diseases | CPT/HCPCS: 93306 ==

== ENCOUNTER 2024-07-01 13:06 | Outpatient (BNV) | payer MEDICARE, SELFPAY | END 2024-07-06 12:32 | PROVIDERS: Admitting Provider Student in an Organized Health Care Education/Training Program; Emergency Provider Emergency Medicine; PCP Internal Medicine; Visit Provider Radiology Diagnostic Radiology | DX: J18.9 Pneumonia, unspecified organism (principal); Z95.828 Presence of other vascular implants and grafts | CPT/HCPCS: 71045 ==

== ENCOUNTER → 2024-07-01 13:06 | Outpatient (BNV) | payer MEDICARE, SELFPAY | PROVIDERS: Admitting Provider Student in an Organized Health Care Education/Training Program; Emergency Provider Emergency Medicine; PCP Internal Medicine; Visit Provider Family Medicine | DX: K56.609 Unspecified intestinal obstruction, unspecified as to partial versus complete obstruction (principal); Z98.890 Other specified postprocedural states | CPT/HCPCS: 99223; 99232; 99239; 99499; G0180 ==

== ENCOUNTER → 2024-07-01 13:06 | Outpatient (BNV) | payer MEDICARE, SELFPAY | PROVIDERS: Admitting Provider Student in an Organized Health Care Education/Training Program; Emergency Provider Emergency Medicine; PCP Internal Medicine; Visit Provider Surgery | DX: Z98.890 Other specified postprocedural states (principal) | CPT/HCPCS: 44005; 99024; 99222; 99233; 99499 ==

== ENCOUNTER 2024-07-19 13:44 | Outpatient (AMB) | payer MEDICARE, SELFPAY ==
--- NOTE | 2024-07-19 13:45 | MHC.OFFVIS ---
Vital Signs 07/19/24 13:56 Weight 149 lb BP 133/69 Blood Pressure Location Rt brachial Position Sitting Pulse 86 Intake Visit Reasons: s/p Ab pain, hx of intestial blockages Intake Note: Patient here s/p exploratory laparotomy, extensive enterolysis and adhesionolysis. Patient c/o: abdomen feels sore around suture placement. Using ice packs to area help. Soap Chipper Required: No Accompanied by: spouse Ryann Allergies No Known Allergies [No Known Allergies*] Allergy (Verified 07/19/24 13:56) HPI Comments Details: Patient presents with his . He is doing quite well. He is tolerating his diet. He is having regular bowel habits. He has minimal incisional discomfort. He is slowly but steadily trying to increase his activity level. He is taking nutritional supplements as well. 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 GERD (gastroesophageal reflux disease) Constipation Throat mass Mass of right side of neck Personal history of nicotine dependence History of prostate cancer (~2004) History of small bowel obstruction (~2019) Shingles Vitamin B12 deficiency Diverticulosis (~1998) Osteoarthritis Basal cell carcinoma, scalp/neck Cervical spondylosis Hypercholesterolemia Hypertension Melanoma Esophageal adenocarcinoma (~2017) Surgical History History of hemorrhoidectomy (~1993) History of esophagogastroduodenoscopy (EGD) History of colonoscopy History of meniscectomy of right knee (~2003) History of esophagectomy (~2018) History of jejunostomy tube placement (~2018) History of incisional hernia repair (~2019) History of appendectomy History of prostatectomy (~2004) Family History Son Non-Hodgkin lymphoma Father Prostate cancer Mother No problems noted. Social History Household Members: Spouse Housing: Condominium Are you a primary transitional care nurse to a significant other at home: No Do you presently have visiting nurse or other home services: No Alcohol intake: current Alcohol intake frequency: a few times a week Alcohol type: beer Patient Tobacco Use Status: Former Tobacco user Years Smoked: 35 e-Cigarette/Vaping Use: Never Used Second Hand Smoke Exposure: No Advance Directives Date on File: 12/04/21 service: Yes Current occupational status: retired Current occupation: rt handed Physical Exam Vital Signs: Last Vital Signs Pulse 86 07/19/24 13:56 BP 133/69 07/19/24 13:56 GI Other: Abdomen is soft. Incision clean dry and intact well healed Assessment & Plan Assessment & Plan (1) S/P exploratory laparotomy: Code(s): Z98.890 - Other specified postprocedural states Category: Surgical (2) Postop check: Code(s): Z09 - Encounter for follow-up examination after completed treatment for conditions other than malignant neoplasm Category: Surgical Plan From a surgical perspective, patient was doing quite well. He is encouraged to continue his activity level advancement as well as nutritional supplementation. All questions answered. Patient will otherwise follow-up p.r.n.. Coding Level of Care Code Global (61300) Diagnoses S/P exploratory laparotomy Z98.890 Postop check Z09
[2024-07-19 13:56] VITALS: BP 133/69; PULSE 86
--- OUTSIDE RECORDS SUMMARY | 2024-07-20 21:44 | XMS_ITS ---
Author Organization Matthew Hirsch DO, FACP Address [address], [place] [id number] Care Team Providers Care Hand Silvering Supervisor Name Role Phone Matthew Hirsch Primary Care Provider REASON FOR VISIT 3 month f/u Encounters Encounter Location Date Provider Diagnosis Matthew Hirsch DO, FACP [address] [place] [address] [phone] 07/05/2024 Matthew Hirsch PLAN OF TREATMENT Next Appt Details Provider Name:Matthew byrne, 2024 01:30:00 PM, [address] [place] [address], [phone],
--- OUTSIDE RECORDS SUMMARY | 2024-07-20 21:44 | XMS_ITS | Data Portability ---
Author Organization [place] - [facility], Allergy Address [address] [address] Care Team Providers Care Engine Boss Name Role Phone EDGARD MARCELINO Primary Care Provider [phone] Assessment No assessment recorded. Plan of Treatment Reminders Order Date Submit Date Provider Last Modified By Organization Details Last Modified Time Details Appointments Establish ed 30 2024 02:00P M EDGARD Knox MD Not available Not available Not available Lab None recorded. Referral None recorded. Procedures None recorded. Surgeries None recorded. Imaging None recorded. Medication Orders None recorded. Patient TargetsNo targets recorded. Patient InstructionsNo instructions recorded. Reason for Referral None Reported. Results Created Date Observation Date Name Description Value Unit Range Abnormal Flag Note LastModifiedBy Organization Detail LastModifiedTime 03/30/20 24 11/03/2023 imagi ng/di agnos tic resul t No observ ation record ed. [email or web address] Not Available 14:23:42 03/30/20 24 07/20/2023 imagi ng/di agnos tic resul t No observ ation record ed. [email or web address] Not Available 14:24:00 03/30/20 24 07/29/2023 imagi ng/di agnos tic resul t No observ ation record ed. [email or web address] Not Available 14:24:01 Result Notes None recorded. 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, unilatera l; Note: Date Diagnosed : 11/12/2023 1:50 PM (J38.01) Not Available [facility] 02:53:42 Dysphagia 47312743 Active 2023 Dysphagia , unspecifi ed; Note: Date Diagnosed : 11/12/2023 1:50 PM (R13.10) Not Available [facility] 02:53:43 Dysphonia 64338651 Active 2023 Other voice and resonance disorders ; Note: Date Diagnosed : 11/12/2023 1:50 PM (R49.8) Not Available [facility] 02:53:43 Finding of resonance of voice 376234479 Active 2023 Other voice and resonance disorders ; Note: Date Diagnosed : 11/12/2023 1:50 PM (R49.8) Not Available [facility] 02:53:43 History of malignant neoplasm of esophagus 272474454 Active 2023 Personal history of malignant neoplasm of esophagus ; Note: Date Diagnosed : 11/12/2023 1:50 PM (Z85.01) Not Available [facility] 02:53:44 Problem Notes None recorded. Procedures Surgical History Date Name Laterality Status Provider Name and Address Organization Details Recorded Time 4 FFL_RE completed EDGARD VERDIN MD [address] [place] [address],[place] [address], [place], [address], [facility] - [facility] 03/03/2024 12:41:19 injection of vocal cords completed EDGARD VERDIN MD [address] [place] [address],[address], [address], [place] - [facility] 03/03/2024 12:39:31 Imaging Results Imaging Date Name Status [facility] by [facility] Details LastModified Time 11/03/2023 imaging/diag nostic result completed Information not available 03/30/2024 14:23:42 07/20/2023 imaging/diag nostic result completed Information not available 03/30/2024 14:24:00 07/29/2023 imaging/diag nostic result completed Information not available 03/30/2024 14:24:01 Procedure Notes None recorded. Medical Equipment None Reported. Medications Name Sig Start Date Stop Date Status Note LastModified by Organization Details LastModified Time lisinopril 20 mg tablet active Medication ID: [id number] Bran d Name: lisinopril Send Method: E-Prescribe d Subs Allowed: subs OK Medicati onGenericNa me: lisinopril Not Available Not Available Not Available omeprazole 40 mg capsule,delay ed release active Medication ID: [id number] Bran d Name: omeprazole Send Method: E-Prescribe d Subs Allowed: subs OK Medicati onGenericNa me: omeprazole Not Available Not Available Not Available amitriptyline 25 mg tablet active Not Available Not Available Not Available gabapentin 300 mg capsule active Medication ID: [id number] Bran d Name: gabapentin Send Method: E-Prescribe d Subs Allowed: subs OK Medicati onGenericNa me: gabapentin Not Available Not Available Not Available verapamil ER (SR) 240 mg tablet,extend ed release active Medication ID: [id number] Bran d Name: verapamil S end Method: E-Prescribe d Subs Allowed: subs OK Medicati onGenericNa me: verapamil Not Available Not Available Not Available ondansetron 4 mg disintegratin g tablet active Not Available Not Available Not Available Vitals Date Recorded Body height Body mass index (BMI) Body weight Provider Name and Address Organization Details Last Updated DateTime 03/03/2024 172.72 cm 25.1 kg/m2 23144.74 g Guillermo Lim [facility] 03/03/2024 12:30:51 Social History None recorded. Functional Status None recorded. Mental Status None recorded. Family History Nothing Reported. Medical History No medical history recorded. Past Encounters Encounter ID Performer Location Encounter Start Date Encounter Closed Date Diagnosis/Indication Diagnosis SNOMED-CT Code Diagnosis ICD10 Code 9510 EDGARD VERDIN MD [facility] [address] [place] [address] 03/03/2024 11:34:12 03/03/2024 12:49:27 Vocal cord paralysis 336777755 J38.01 Chronic hoarseness 90921 06035 105 R49.0 Health Concerns Section Related Observation LastModified by Organization Detai ls LastModified Time None Recorded Concern Status LastModified by Organization Details LastModified Time None Recorded Advance Directives Directive None Recorded Payers Encounter Date Sequence Insurance Name Policy Number Policy Jeter Covered Member ID Jeter Member ID Guarantor Name 03/03/2024 1 [employer] - MEDICARE ADVANTAGE PLAN (MEDICARE REPLACEMENT HMO) [id number] Yoseph Orellana [id number] Yoseph Orellana
--- OUTSIDE RECORDS SUMMARY | 2024-07-20 21:45 | XMS_ITS ---
Author Organization Matthew Hirsch DO, FACP Address [address] [place], [place] [id number] Care Team Providers Care Stage Electrician Helper Name Role Phone Matthew Hirsch Primary Care Provider REASON FOR VISIT 1 month f/u Encounters Encounter Location Date Provider Diagnosis Matthew Hirsch DO, FACP [address] [place] [id number] 07/01/2024 Matthew Hirsch PLAN OF TREATMENT Next Appt Details Provider Name:Matthew byrne, 2024 01:30:00 PM, [address] [place] [address], [phone],
--- OUTSIDE RECORDS SUMMARY | 2024-07-20 21:45 | XMS_ITS ---
Author Organization Matthew Hirsch DO, [facility] Address [address] [place], [place] [id number] Care Team Providers Care Sheetfed Press Operator Name Role Phone Matthew Hirsch Primary Care Provider [phone] REASON FOR VISIT Message Encounters Encounter Location Date Provider Diagnosis Matthew Hirsch DO, FACP [address] [place] [phone] 06/07/2024 Matthew Hirsch PLAN OF TREATMENT Next Appt Details Provider Name:Matthew byrne, 2024 01:30:00 PM, [address] [place], [place], [phone],
--- OUTSIDE RECORDS SUMMARY | 2024-07-20 21:45 | XMS_ITS ---
Author Organization [facility] Address [address] [place] [address] Care Team Providers Care Supervisory Forester Name Role Phone Matthew Hirsch DO Primary Care Provider Unavail able Matthew Powell Unavailable [phone] REASON FOR VISIT requesting soon appt pt with dysphagia/hx of esophageal ca Encounters Encounter Location Date Provider Diagnosis [facility] [address] [place] [address] 08/12/2023 Matthew Powell PLAN OF TREATMENT No Information
--- OUTSIDE RECORDS SUMMARY | 2024-07-20 21:45 | XMS_ITS | Patient Health Record ---
Author Organization Matthew Hirsch DO, FACP Address [address], [place] [id number] Care Team Providers Care Family Health Nurse Practitioner Name Role Phone Matthew Hirsch Primary Care Provider ALLERGIES No Known Allergies RESULTS Component Value Reference Range Notes Creatinine GFR POC Reviewed date:07/24/2023 09:37:08 AM Interpretation:Normal Performing Lab:[facility], [address] [place] [address] Notes/Report: [id number] 0.85 >60 1520 HO.HAITA Creatinine POC 0.9 0.5-1.4 mg/dL GFR POC > 60 Chronic Kidney Disease: Estimated GFR < 60 mL/min/1.73m2 Severe Kidney Disease: Estimated GFR < 15 mL/min/1.73m2 CT chest w con Reviewed date:07/21/2023 06:34:30 PM Interpretation:Stable Performing Lab: Notes/Report: [facility] [address] [place] [address] CT Scan Report Signed Patient: Yoseph Orellana MR#: [id number] : 1945 Acct:[id number] Age/Sex: 77 / M ADM Date: 07/20/23 Loc: HO.CT Attending Dr: Isabella Brooks MD Ordering Physician: Isabella Brooks MD Date of Service: 07/20/23 Procedure(s): CT chest w IV con Accession Number(s): [id number] cc: Isabella Brooks MD; Matthew Hirsch DO [...] iterative reconstruction technique DLP: 135 mGy-cm FINDINGS: 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 LUNGS: There is a 2 [...] in OV> 07/21/23 1645 DD/ 1540 TD/TT: Barber Shop Operator: KARLI HINES barium swallow Reviewed date:07/29/2023 05:29:07 PM Interpretation:Abnormal Performing Lab: Notes/Report: [facility] [address] [place] [address] Fluoroscopy Report Signed Patient: Yoseph Orellana MR#: [id number] : 1945 Acct:[id number] Age/Sex: 77 / M ADM Date: 07/29/23 Loc: HO.XRAY Attending Dr: Matthew Hirsch DO Ordering Physician: Matthew Hirsch DO Date of Service: 07/29/23 Procedure(s): FL barium swallow Accession Number(s): [id number] cc: Matthew Hirsch DO EXAMINATION: XR FLUOROSCOPY [...] in OV> 07/29/23 1611 DD/ 1145 TD/TT: Barber Shop Operator: PET CT fusion skull to thigh Reviewed date:09/18/2023 05:16:53 PM Interpretation:Abnormal Performing Lab: Notes/Report: [address] [address] PET Report Signed Patient: Yoseph Orellana MR#: [id number] : 1945 Acct:[id number] Age/Sex: 78 / M ADM Date: 09/15/23 Loc: HO.PET Attending Dr: Isabella Brooks MD Ordering Physician: Isabella Brooks MD Date of Service: 09/15/23 Procedure(s): PET CT fusion skull to thigh Accession Number(s): [id number] cc: Isabella Brooks MD; Matthew Hirsch DO [...] in OV> 09/18/23 1257 DD/ 1030 TD/TT: Barber Shop Operator: DAWOOD Prostate Specific Antigen Reviewed date:09/29/2023 12:25:21 PM Interpretation:Undetectable Performing Lab:[facility], [address] [place] [phone] Notes/Report: Prostate Specific Antigen < 0.10 <0.05-4.0 ng/mL PSA methodology: Richard Alinity i Chemiluminescent Microparticle Immunoassay (CMIA) Complete Blood Count Auto Di ff Reviewed date:10/14/2023 04:33:51 PM Interpretation:Normal Performing Lab:[facility], [address] [place] [phone] Notes/Report: White Blood Count 6.8 4.8-10.8 X10*3/uL [...] Panel Reviewed date:10/14/2023 04:34:57 PM Interpretation:Abnormal Performing Lab:[facility], [address] [place] [phone] Notes/Report: Sodium 142 135-145 mmol/L Potassium 3.8 [...] Glomerular Filt Rate > 60 NOTE: For -Vincentian individuals, multiply the result by 1.210. Chronic [...] Panel Reviewed date:11/19/2023 10:35:14 AM Interpretation:Normal Performing Lab:[address] [address] Notes/Report: Sodium 143 135-145 mmol/L Potassium 4.6 3.3-5.1 mmol/L Chloride 108 96-108 mmol/L Carbon Dioxide 29 22-29 mmol/L Anion Gap 11 12-20 Blood Urea Nitrogen 11 9-16 mg/dL Creatinine 1.28 0.5-1.4 mg/dL Estimated Glomerular Filt Rate 54 NOTE: For -Vincentian individuals, multiply the result by 1.210. Chronic Kidney Disease: Estimated GFR < 60 mL/min/1.73m2 Severe Kidney Disease: Estimated GFR < 15 mL/min/1.73m2 Glucose Random 89 60-115 mg/dL Calcium 9.4 8.4-10.2 mg/dL Complete Blood Count Auto Di ff Reviewed date:11/19/2023 08:53:06 AM Interpretation:Normal Performing Lab:[address] [address] Notes/Report: White Blood Count 5.0 4.8-10.8 X10*3/uL [...] ff Reviewed date:01/01/2024 01:07:57 PM Interpretation:Normal Performing Lab:[facility], [address] [place] [phone] Notes/Report: White Blood Count 8.3 4.8-10.8 X10*3/uL [...] INR Reviewed date:01/01/2024 12:55:22 PM Interpretation:Normal Performing Lab:[address] [address] Notes/Report: Prothrombin Time 12.6 11.1-13.3 [employer] [...] Panel Reviewed date:01/01/2024 01:09:00 PM Interpretation:Normal Performing Lab:[address] [address] Notes/Report: Bilirubin Total 0.5 0.0-1.0 mg/dL Bilirubin Direct 0.2 0.0-0.5 mg/dL Aspartate Amino Transferase 17 5-37 U/L Alanine Aminotransferase 11 0-40 U/L Total Protein 6.9 6.5-8.0 g/dL Albumin Level 3.7 3.5-5.0 g/dL Alkaline Phosphatase 99 39-117 U/L Basic Metabolic Panel Fastin g Reviewed date:01/01/2024 01:09:00 PM Interpretation:Normal Performing Lab:[facility], [address] [place] [phone] Notes/Report: Sodium 141 135-145 mmol/L Potassium 4.2 [...] Glomerular Filt Rate > 60 NOTE: For -Vincentian individuals, multiply the result by 1.210. Chronic Kidney Disease: Estimated GFR < 60 mL/min/1.73m2 Severe Kidney Disease: Estimated GFR < 15 mL/min/1.73m2 Glucose Fasting 81 60-99 mg/dL Calcium 9.2 8.4-10.2 mg/dL Magnesium Reviewed date:01/01/2024 01:09:00 PM Interpretation:Normal Performing Lab:[facility], [address] [place] [phone] Notes/Report: Magnesium 2.1 1.6-2.6 mg/dL Lipase Reviewed date:01/01/2024 01:09:00 PM Interpretation:Normal Performing Lab:[facility], [address] [place] [phone] Notes/Report: Lipase 15 8-78 U/L CT chest w con Reviewed date:01/02/2024 11:16:28 AM Interpretation:Abnormal Performing Lab: Notes/Report: [address] [address] [address] Scan Report Signed Patient: Yoseph Orellana MR#: [id number] : 1945 Acct:[id number] Age/Sex: 78 / M ADM Date: 01/01/24 Loc: HO.ED Attending Dr: Ordering Physician: Rebecca Alvarenga DO Date of Service: 01/01/24 Procedure(s): CT chest w IV con Accession Number(s): [id number] cc: Rebecca Alvarenga ; JoycelynMatthew DYER EXAMINATION: CT CHEST, ABDOMEN AND [...] in OV> 01/01/24 1640 DD/ 1510 TD/TT: Barber Shop Operator: CT abdomen pelvis w con Reviewed date:01/02/2024 11:17:42 AM Interpretation:Abnormal Performing Lab: Notes/Report: [place] [address] [address] Scan Report Signed Patient: Yoseph Orellana MR#: [id number] : 1945 Acct:[id number] Age/Sex: 78 / M ADM Date: 01/01/24 Loc: HO.ED Attending Dr: Ordering Physician: Rebecca Alvarenga DO Date of Service: 01/01/24 Procedure(s): CT abdomen pelvis w IV con Accession Number(s): [id number] cc: Rebecca Alvarenga DO; Matthew Hirsch DO [...] in OV> 01/01/24 1640 DD/ 1510 TD/TT: Barber Shop Operator: Complete Blood Count Auto Di ff Reviewed date:03/19/2024 10:24:02 PM Interpretation:Abnormal Performing Lab:[facility], [address] [place] [phone] Notes/Report: White Blood Count 8.5 4.8-10.8 X10*3/uL Red Blood Count 4.71 4.60-5.80 X10*6/uL Hemoglobin 13.7 14.0-18.0 g/dl Hematocrit 40.7 42.0-52.0 % Mean Corpuscular Volume 86.4 80.0-98.0 fL Mean Corpuscular Hemoglobin 29.1 27.0-33.0 pg Mean Corpuscular HGB Conc 33.7 31.0-36.0 g/dl Red Cell Distribution Width 13.6 11.0-16.0 % Platelet Count 213 160-400 X10*3/uL Mean Platelet Volume 10.8 9.4-12.4 fL Neutrophils Percent Auto 68.5 45-73 % Imm Gran Pct Auto 0.2 0.0-0.4 % Lymphocytes Percent Auto 18.6 20-40 % Monocytes Percent Auto 10.8 2-11 % Eosinophils Percent Auto 1.5 0-4 % Basophils Percent Auto 0.4 0-2 % NRBC Pct Auto 0.0 0.0-0.2 /100WBC Neutrophils Absolute Auto 5.8 2.0-8.3 x10*3/u L Imm Gran Abs Auto 0.02 0.00-0.03 X10*3/uL Lymphocytes Absolute Auto 1.6 1.2-4.9 X10*3/u L Monocytes Absolute Auto 0.9 0.1-1.2 X10*3/uL Eosinophils Absolute Auto 0.1 0.0-0.4 X10*3/u L Basophils Absolute Auto 0.0 0.0-0.2 X10*3/uL NRBC Abs Auto 0.000 0.0-0.012 X10*3/uL Liver Panel Reviewed date:03/19/2024 10:24:02 PM Interpretation:Normal Performing Lab:[facility], [address] [place] [phone] Notes/Report: Bilirubin Total 0.3 0.0-1.0 mg/dL Bilirubin Direct 0.1 0.0-0.5 mg/dL Aspartate Amino Transferase 20 5-37 U/L Alanine Aminotransferase 14 0-40 U/L Total Protein 6.8 6.5-8.0 g/dL Albumin Level 3.8 3.5-5.0 g/dL Alkaline Phosphatase 90 39-117 U/L Basic Metabolic Panel Reviewed date:03/19/2024 10:24:02 PM Interpretation:Abnormal Performing Lab:[address] [address] Notes/Report: Sodium 143 135-145 mmol/L Potassium 3.7 3.3-5.1 mmol/L Chloride 110 96-108 mmol/L Carbon Dioxide 24 22-29 mmol/L Anion Gap 13 12-20 Blood Urea Nitrogen 10 9-16 mg/dL Creatinine 1.02 0.5-1.4 mg/dL Creatinine Clr Calc Pharmacy 55.8 eGFR (calculated from the MDRD study equation) and eCrCl (calculated from the Cockcroft-Gault equation) are based on different parameters and may not yield comparable results. If eCrCl result is absurd, please check patient's height/weight. Estimated Glomerular Filt Rate > 60 NOTE: For -Vincentian individuals, multiply the result by 1.210. Chronic Kidney Disease: Estimated GFR < 60 mL/min/1.73m2 Severe Kidney Disease: Estimated GFR < 15 mL/min/1.73m2 Glucose Random 107 60-115 mg/dL Calcium 8.8 8.4-10.2 mg/dL Magnesium Reviewed date:03/19/2024 10:24:02 PM Interpretation:Normal Performing Lab:[facility], [address] [place] [phone] Notes/Report: Magnesium 2.2 1.6-2.6 mg/dL Lipase Reviewed date:03/19/2024 10:24:02 PM Interpretation:Normal Performing Lab:[facility], [address] [place] [phone] Notes/Report: Lipase 28 8-78 U/L UA ClnCatch+Micro w/rflx Cul t Reviewed date:03/20/2024 02:08:31 PM Interpretation:Abnormal Performing Lab:[address] [address] Notes/Report: Urine, Dia Port Color Urine Yellow Appearance Urine Clear PH 7.0 5.0-9.0 Glucose Urine UA Negative Negative mg/dL Urine Blood Negative Negative Specific [place] - Urine 1.010 1.005-1.025 Urine Protein Trace Neg-Trace mg/dL Urine Ketones Negative Negative mg/dL Nitrite Urine Negative Negative Leukocyte Esterase Urine Trace Negative RBC Urine 0-2 0-2 /HPF WBC Urine 0-5 0-5 /HPF Squamous Epithelial Cell Urine 0-2 0-2 /HPF Bacteria Urine None Seen None Seen Hyaline Casts Urine 0-2 0-2 /LPF CT abdomen pelvis wo con Reviewed date:03/21/2024 10:19:46 AM Interpretation:Abnormal Performing Lab: Notes/Report: [address] [address] [address] Scan Report Signed Patient: Yoseph Orellana MR#: [id number] : 1945 Acct:[id number] Age/Sex: 78 / M ADM Date: 03/19/24 Loc: HO.ED Attending Dr: Ordering Physician: Nina North Date of Service: 03/19/24 Procedure(s): CT abdomen pelvis wo IV con Accession Number(s): [id number] cc: Matthew Hirsch DO; Nina North EXAMINATION: CT ABDOMEN AND PELVIS WITHOUT CONTRAST CLINICAL INFORMATION: Constipation, query impaction COMPARISON: 03/11/2024 TECHNIQUE: Multidetector volumetric imaging was performed from the superior aspect of the liver through the pubic symphysis. Sagittal and coronal reformatted images were obtained [...] head) *Use of iterative reconstruction technique DLP: 554 mGy-cm FINDINGS: LUNG BASES: Unremarkable. ABDOMINAL AND PELVIC WALL: Unremarkable. LIVER AND BILIARY TREE: Unremarkable. GALLBLADDER: Unremarkable. PANCREAS: Unremarkable. SPLEEN: Unremarkable. ADRENAL GLANDS: Unremarkable. KIDNEYS AND URETERS: Benign-appearing left parapelvic cyst. GASTROINTESTINAL TRACT: Postsurgical changes related to gastric pull-through procedure and esophagectomy. Large volume stool in the rectum with some circumferential thickening of the distal rectum which may reflect early stercoral colitis. No evidence of obstruction. Colonic diverticulosis, no findings of diverticulitis. Appendix is not visualized, no inflammatory changes in the right lower quadrant to suggest appendicitis.Distal perirectal surgical clips are again noted. VASCULAR: Aortic atherosclerotic calcifications, no aneurysmal dilation. LYMPH NODES/PERITONEUM: No lymphadenopathy. FREE FLUID: None. BLADDER: Unremarkable. PELVIC VISCERA: Unremarkable. OSSEOUS STRUCTURES: Mild degenerative changes of the thoracolumbar spine. CT/CT abdomen pelvis wo IV con IMPRESSION: Large volume stool in the rectum with some circumferential thickening of the distal rectum which may reflect early stercoral colitis. No evidence of obstruction. Dictated By: Davina Diggs MD Signed By: <Electronically signed by Davina Diggs MD in OV> 03/19/242208 DD/ 55 TD/TT: Barber Shop Operator: Complete Blood Count Auto Di ff Reviewed date:03/20/2024 02:08:31 PM Interpretation:Abnormal Performing Lab:[facility], [address] [place] [phone] Notes/Report: White Blood Count 8.1 4.8-10.8 X10*3/uL Red Blood Count 4.67 4.60-5.80 X10*6/uL Hemoglobin 13.4 14.0-18.0 g/dl Hematocrit 40.5 42.0-52.0 % Mean Corpuscular Volume 86.7 80.0-98.0 fL Mean Corpuscular Hemoglobin 28.7 27.0-33.0 pg Mean Corpuscular HGB Conc 33.1 31.0-36.0 g/dl Red Cell Distribution Width 13.8 11.0-16.0 % Platelet Count 221 160-400 X10*3/uL Mean Platelet Volume 11.3 9.4-12.4 fL Neutrophils Percent Auto 68.2 45-73 % Imm Gran Pct Auto 0.2 0.0-0.4 % Lymphocytes Percent Auto 17.5 20-40 % Monocytes Percent Auto 12.4 2-11 % Eosinophils Percent Auto 1.5 0-4 % Basophils Percent Auto 0.2 0-2 % NRBC Pct Auto 0.0 0.0-0.2 /100WBC Neutrophils Absolute Auto 5.5 2.0-8.3 x10*3/u L Imm Gran Abs Auto 0.02 0.00-0.03 X10*3/uL Lymphocytes Absolute Auto 1.4 1.2-4.9 X10*3/u L Monocytes Absolute Auto 1.0 0.1-1.2 X10*3/uL Eosinophils Absolute Auto 0.1 0.0-0.4 X10*3/u L Basophils Absolute Auto 0.0 0.0-0.2 X10*3/uL NRBC Abs Auto 0.000 0.0-0.012 X10*3/uL Basic Metabolic Panel Reviewed date:03/20/2024 02:08:31 PM Interpretation:Abnormal Performing Lab:[facility], [address] [place] [phone] Notes/Report: Sodium 141 135-145 mmol/L Potassium 3.7 3.3-5.1 mmol/L Chloride 109 96-108 mmol/L Carbon Dioxide 25 22-29 mmol/L Anion Gap 11 12-20 Blood Urea Nitrogen 10 9-16 mg/dL Creatinine 0.89 0.5-1.4 mg/dL Creatinine Clr Calc Pharmacy 64.0 eGFR (calculated from the MDRD study equation) and eCrCl (calculated from the Cockcroft-Gault equation) are based on different parameters and may not yield comparable results. If eCrCl result is absurd, please check patient's height/weight. Estimated Glomerular Filt Rate > 60 NOTE: For -Vincentian individuals, multiply the result by 1.210. Chronic Kidney Disease: Estimated GFR < 60 mL/min/1.73m2 Severe Kidney Disease: Estimated GFR < 15 mL/min/1.73m2 Glucose Random 90 60-115 mg/dL Calcium 9.0 8.4-10.2 mg/dL Respiratory Panel Reviewed date:05/26/2024 11:19:42 AM Interpretation:Negative Performing Lab:[facility], [address] [place] [phone] Notes/Report: Adenovirus PCR Not Detected Not Detect. Bordetella pertussis PCR Not Detected Not Detect. Interpret results with caution. If B. pertussis is specifically suspected, additional testing using an alternate method is recommended. Bordetella parapertussis PCR Not Detected Not Detect. Chlamydia pneumoniae PCR Not Detected Not Detect. Coronavirus 229E PCR Not Detected Not Detect. Coronavirus HKU1 PCR Not Detected Not Detect. Coronavirus NL63 PCR Not Detected Not Detect. Coronavirus OC43 PCR Not Detected Not Detect. SARS-CoV-2 PCR Not Detected Not Detect. SARS-CoV-2 not detected by real-time RT-PCR. Note: If clinical suspicion for Sars-CoV-2 is high, continue to maintain precautions and consider repeat testing. Test results should be interpreted in the context of clinical findings and other laboratory data. Rare polymorphisms exist that could lead to false-negative or false-positive results. If results do not match the clinical findings, additional testing should be considered. Results reported to [facility]. This test has been authorized by the FDA under the Emergency Use Authorization (EUA) for use by authorized laboratories. Influenza A PCR Not Detected Not Detect. Influenza B PCR Not Detected Not Detect. Human metapneumovirus PCR Not Detected Not Detect. Rhino/Enterovirus PCR Not Detected Not Detect. Mycoplasma pneumoniae PCR Not Detected Not Detect. Parainfluenza 1 PCR Not Detected Not Detect. Parainfluenza 2 PCR Not Detected Not Detect. Parainfluenza 3 PCR Not Detected Not Detect. Parainfluenza 4 PCR Not Detected Not Detect. RSV PCR Not Detected Not Detect. Resp Panel NA Note See Note All results must be correlated with clinical findings. Negative results should not be used as the sole basis for diagnosis, treatment, or other management decisions. A negative result does not exclude the possibility of viral or bacterial infection. Negative results may occur from the presence of sequence variants in the region targeted by the assay, the presence of inhibitors, an infection caused by an organism not detected by the panel, or lower respiratory tract infections that are not detected by a nasopharyngeal swab specimen. Test results may also be affected by concurrent antiviral/antibacterial therapy or levels of organism in the specimen that are below the limit of detection for this test. This assay is performed by Multiplexed PCR, utilizing the [employer] Array. COVID-19 ID NOW ([employer]) Reviewed date:05/26/2024 11:19:42 AM Interpretation:Negative Performing Lab:[facility], [address] [place] [phone] Notes/Report: IDNOW Serial# [id number] COVID-19 Test Negative Negative COVID-19 Note See Note Results are for the identification of SARS-CoV2 RNA. The SARS-CoV2 RNA is generally detectable in respiratory samples during the acute phase of infection. Positive results are indicative of the presence of SARS-CoV-2 RNA; clinical correlation with patient history and other diagnostic information is necessary to determine patient infection status. Positive results do not rule out bacterial infection or co-infection with other viruses. Testing facilities within the [facility] and its territories are required to report all positive results to the appropriate public health authorities. Negative results should be treated as presumptive and, if inconsistent with clinical signs and symptoms or necessary for patient management, should be tested with different authorized or cleared molecular tests. Negative results do not preclude SARS-CoV2 RNA infection and should not be used as the sole basis for patient management decisions. Negative results should be considered in the context of a patient's recent exposures, history and the presence of clinical signs and symptoms consistent with COVID-19. This test has been authorized by the FDA under an Emergency Use Authorization (EUA) for use by authorized laboratories. Testing performed on the [employer] ID NOW utilizing NAAT. Lactic Acid-LAB USE ONLY Reviewed date:05/25/2024 03:42:28 PM Interpretation:Normal Performing Lab:[facility], [address] [place] [phone] Notes/Report: Lactic Acid-LAB USE ONLY 1.3 0.5-2.0 mmol/L CT abdomen pelvis wo con Reviewed date:05/25/2024 05:14:53 PM Interpretation:Abnormal Performing Lab: Notes/Report: [address] [address] [address] Scan Report Signed Patient: Yoseph Orellana MR#: [id number] : 1945 Acct:[id number] Age/Sex: 78 / M ADM Date: 05/25/24 Loc: HO.ED Attending Dr: Ordering Physician: José Oglesby MD Date of Service: 05/25/24 Procedure(s): CT abdomen pelvis wo IV con Accession Number(s): [id number] cc: José Oglesby MD; Matthew Hirsch DO EXAMINATION: CT ABDOMEN AND PELVIS WITHOUT CONTRAST CLINICAL INFORMATION: vomiting COMPARISON: CT abdomen/pelvis 03/19/2024 TECHNIQUE: Multidetector volumetric imaging was performed from the superior aspect of the liver through the pubic symphysis. Sagittal and coronal reformatted images were obtained [...] head) *Use of iterative reconstruction technique DLP: 553 mGy-cm FINDINGS: LUNG BASES: Bilateral lower lobe peribronchial thickening and bronchiectasis with ill-defined groundglass opacities. LIVER, GALLBLADDER, AND BILIARY TREE: The liver is normal in size, shape, and attenuation. No focal hepatic lesion or biliary ductal dilatation is present. The gallbladder is unremarkable with no evidence of radiopaque gallstones, gallbladder wall thickening, or obvious pericholecystic inflammatory changes. PANCREAS: Unremarkable. SPLEEN: Unremarkable. ADRENAL GLANDS: Unremarkable. KIDNEYS AND URETERS: Small left greater than right perinephric cysts. The kidneys are normal in size, shape, and attenuation. No hydronephrosis, hydroureter, or calculi seen. No perinephric stranding. BLADDER: The bladder is distended without focal wall thickening or bladder calcified. GASTROINTESTINAL TRACT: Status post esophagectomy and gastric pull-through with stable postoperative changes. The small and large bowel are nondilated. Mild scattered colonic diverticulosis evidence of acute diverticulitis. Although the appendix is not visualized, there is no right lower quadrant stranding to suggest acute appendicitis. ABDOMINAL WALL: No significant hernia is appreciated. Ventral abdominal hernia repair mesh again noted. LYMPH NODES: Normal. VASCULAR: The aorta is nonaneurysmal. Moderate scattered atheromatous calcifications. PELVIC VISCERA: Status post prostatectomy. OSSEOUS STRUCTURES: No acute or suspicious osseous abnormality. Moderate multilevel thoracolumbar spondylosis. Mild multilevel thoracolumbar degenerative disc disease. L5 limbus vertebra again noted. CT/CT abdomen pelvis wo IV con IMPRESSION: 1. No acute abnormality within the abdomen or pelvis. 2. Bilateral lower lobe peribronchial thickening and bronchiectasis with ill-defined groundglass opacities. Findings may represent aspiration pneumonitis versus infectious etiology. 3. Stable postoperative changes status post esophagectomy and gastric pull-through. Fleischner guidelines were followed. Electronically signed by: Barbara Jeter DO 05/25/2024 03:13 PM EDT Dictated By: Barbara Jeter Signed By: <Electronically signed by Barbara Jeter in OV> 05/25/24 1513 DD/ 1117 TD/TT: 05/25/24 1147 Barber Shop Operator: XR chest 1V Reviewed date:05/25/2024 02:49:29 PM Interpretation:Nonacute Performing Lab: Notes/Report: [address] [address] XRay Report Signed Patient: Yoseph Orellana MR#: [id number] : 1945 Acct:[id number] Age/Sex: 78 / M ADM Date: 05/25/24 Loc: HO.ED Attending Dr: Ordering Physician: José Oglesby MD Date of Service: 05/25/24 Procedure(s): XR chest 1V Accession Number(s): [id number] cc: José Oglesby MD; Matthew Hirsch DO EXAMINATION: XR CHEST CLINICAL INFORMATION: Cough. Difficulty breathing COMPARISON: CT chest dated 01/01/2024 TECHNIQUE: Frontal view of the chest was obtained. FINDINGS: Points. At with slight elevation of the left hemidiaphragm and atelectasis at the left base. Right lung is grossly clear as is the left mid and upper lung. Gastric pull-through noted. Heart size normal. Pulmonary vessels are normal caliber. There is a right-sided port with its tip in the SVC. XR/XR chest 1V IMPRESSION: No active disease. Electronically signed by: Armando Love MD 05/25/2024 02:13 PM EDT Dictated By: Armando Love MD Signed By: <Electronically signed by Armando Love MD in OV> 05/25/24 1413 DD/ 1200 TD/TT: 05/25/24 1210 Barber Shop Operator: Complete Blood Count no Diff Reviewed date:05/26/2024 11:19:42 AM Interpretation:Abnormal Performing Lab:[facility], [address] [place] [phone] Notes/Report: White Blood Count 16.4 4.8-10.8 X10*3/uL Red Blood Count 4.41 4.60-5.80 X10*6/uL Hemoglobin 12.7 14.0-18.0 g/dl Hematocrit 38.7 42.0-52.0 % Mean Corpuscular Volume 87.8 80.0-98.0 fL Mean Corpuscular Hemoglobin 28.8 27.0-33.0 pg Mean Corpuscular HGB Conc 32.8 31.0-36.0 g/dl Red Cell Distribution Width 14.2 11.0-16.0 % Platelet Count 189 160-400 X10*3/uL Mean Platelet Volume 11.6 9.4-12.4 fL NRBC Pct Auto 0.0 0.0-0.2 /100WBC NRBC Abs Auto 0.000 0.0-0.012 X10*3/uL Basic Metabolic Panel Reviewed date:05/26/2024 11:19:42 AM Interpretation:Abnormal Performing Lab:[address] [address] Notes/Report: Sodium 142 135-145 mmol/L Potassium 4.1 3.3-5.1 mmol/L Chloride 111 96-108 mmol/L Carbon Dioxide 24 22-29 mmol/L Anion Gap 11 12-20 Blood Urea Nitrogen 10 9-16 mg/dL Creatinine 0.96 0.5-1.4 mg/dL Creatinine Clr Calc Pharmacy 59.3 eGFR (calculated from the MDRD study equation) and eCrCl (calculated from the Cockcroft-Gault equation) are based on different parameters and may not yield comparable results. If eCrCl result is absurd, please check patient's height/weight. Estimated Glomerular Filt Rate > 60 NOTE: For -Vincentian individuals, multiply the result by 1.210. Chronic Kidney Disease: Estimated GFR < 60 mL/min/1.73m2 Severe Kidney Disease: Estimated GFR < 15 mL/min/1.73m2 Glucose Random 142 60-115 mg/dL Calcium 8.9 8.4-10.2 mg/dL Complete Blood Count no Diff Reviewed date:05/27/2024 10:50:31 AM Interpretation:Abnormal Performing Lab:[address] [address] Notes/Report: White Blood Count 9.8 4.8-10.8 X10*3/uL Red Blood Count 4.09 4.60-5.80 X10*6/uL Hemoglobin 11.6 14.0-18.0 g/dl Hematocrit 35.6 42.0-52.0 % Mean Corpuscular Volume 87.0 80.0-98.0 fL Mean Corpuscular Hemoglobin 28.4 27.0-33.0 pg Mean Corpuscular HGB Conc 32.6 31.0-36.0 g/dl Red Cell Distribution Width 14.3 11.0-16.0 % Platelet Count 177 160-400 X10*3/uL Mean Platelet Volume 11.7 9.4-12.4 fL NRBC Pct Auto 0.0 0.0-0.2 /100WBC NRBC Abs Auto 0.000 0.0-0.012 X10*3/uL Basic Metabolic Panel Reviewed date:05/27/2024 10:50:31 AM Interpretation:Abnormal Performing Lab:[address] [address] Notes/Report: Sodium 140 135-145 mmol/L Potassium 3.7 3.3-5.1 mmol/L Chloride 107 96-108 mmol/L Carbon Dioxide 26 22-29 mmol/L Anion Gap 11 12-20 Blood Urea Nitrogen 10 9-16 mg/dL Creatinine 0.98 0.5-1.4 mg/dL Creatinine Clr Calc Pharmacy 58.1 eGFR (calculated from the MDRD study equation) and eCrCl (calculated from the Cockcroft-Gault equation) are based on different parameters and may not yield comparable results. If eCrCl result is absurd, please check patient's height/weight. Estimated Glomerular Filt Rate > 60 NOTE: For -Vincentian individuals, multiply the result by 1.210. Chronic Kidney Disease: Estimated GFR < 60 mL/min/1.73m2 Severe Kidney Disease: Estimated GFR < 15 mL/min/1.73m2 Glucose Random 80 60-115 mg/dL Calcium 8.6 8.4-10.2 mg/dL Complete Blood Count Auto Di ff Reviewed date:06/08/2024 11:14:54 AM Interpretation:Normal Performing Lab:[address] [address] Notes/Report: White Blood Count 5.1 4.8-10.8 X10*3/uL Red Blood Count 5.23 4.60-5.80 X10*6/uL Hemoglobin 14.9 14.0-18.0 g/dl Hematocrit 46.4 42.0-52.0 % Mean Corpuscular Volume 88.7 80.0-98.0 fL Mean Corpuscular Hemoglobin 28.5 27.0-33.0 pg Mean Corpuscular HGB Conc 32.1 31.0-36.0 g/dl Red Cell Distribution Width 14.5 11.0-16.0 % Platelet Count 350 160-400 X10*3/uL Mean Platelet Volume 10.7 9.4-12.4 fL Neutrophils Percent Auto 60.3 45-73 % Imm Gran Pct Auto 0.2 0.0-0.4 % Lymphocytes Percent Auto 25.7 20-40 % Monocytes Percent Auto 11.4 2-11 % Eosinophils Percent Auto 1.4 0-4 % Basophils Percent Auto 1.0 0-2 % NRBC Pct Auto 0.0 0.0-0.2 /100WBC Neutrophils Absolute Auto 3.1 2.0-8.3 x10*3/u L Imm Gran Abs Auto 0.01 0.00-0.03 X10*3/uL Lymphocytes Absolute Auto 1.3 1.2-4.9 X10*3/u L Monocytes Absolute Auto 0.6 0.1-1.2 X10*3/uL Eosinophils Absolute Auto 0.1 0.0-0.4 X10*3/u L Basophils Absolute Auto 0.1 0.0-0.2 X10*3/uL NRBC Abs Auto 0.000 0.0-0.012 X10*3/uL Comprehensive Met. Panel Reviewed date:06/08/2024 11:14:54 AM Interpretation:Normal Performing Lab:[facility], [address] [place] [phone] Notes/Report: Sodium 141 135-145 mmol/L Potassium 4.2 3.3-5.1 mmol/L Chloride 105 96-108 mmol/L Carbon Dioxide 26 22-29 mmol/L Anion Gap 14 12-20 Blood Urea Nitrogen 9 9-16 mg/dL Creatinine 1.04 0.5-1.4 mg/dL Estimated Glomerular Filt Rate > 60 NOTE: For -Vincentian individuals, multiply the result by 1.210. Chronic Kidney Disease: Estimated GFR < 60 mL/min/1.73m2 Severe Kidney Disease: Estimated GFR < 15 mL/min/1.73m2 Glucose Random 90 60-115 mg/dL Calcium 9.1 8.4-10.2 mg/dL Bilirubin Total 0.4 0.0-1.0 mg/dL Aspartate Amino Transferase 30 5-37 U/L Alanine Aminotransferase 12 0-40 U/L Total Protein 7.5 6.5-8.0 g/dL Albumin Level 3.8 3.5-5.0 g/dL Alkaline Phosphatase 90 39-117 U/L XR chest 2V Reviewed date:07/03/2024 04:31:28 PM Interpretation:Nonacute Performing Lab: Notes/Report: [facility] [address] [place] [address] [place] [address] XRay Report Signed Patient: Yoseph Orellana MR#: [id number] : 1945 Acct:[id number] Age/Sex: 78 / M ADM Date: 06/08/24 Loc: HO.HMGCX Attending Dr: Matthew Hirsch DO Ordering Physician: Matthew Hirsch DO Date of Service: 06/08/24 Procedure(s): XR chest 2V Accession Number(s): [id number] cc: Matthew Hirsch DO EXAMINATION: XR CHEST CLINICAL INFORMATION: ASPIRATION PNEUMONIA, UNSPECIFIED ASPIRATION LATERALITY COMPARISON: Most recent chest radiograph dated 05/25/2024. TECHNIQUE: 2 views of the chest were obtained. FINDINGS: Right chest wall port with it's catheter tip in the region of the SVC. No airspace consolidation. No pleural effusion or pneumothorax. Stable cardiomediastinal silhouette. XR/XR chest 2V IMPRESSION: No acute cardiopulmonary findings. Electronically signed by: Samuel Becerra MD 07/02/2024 08:[address] 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 Abdominal pain. COMPARISON: CT abdomen and pelvis 05/25/2024 TECHNIQUE: Multidetector volumetric imaging was performed from the superior aspect of the liver through the pubic symphysis. Sagittal and coronal reformatted images were obtained [...] head) *Use of iterative reconstruction technique DLP: 552 mGy-cm FINDINGS: LUNG BASES: Mild bibasilar bronchiectasis and. Bronchial wall thickening. LIVER, GALLBLADDER, AND BILIARY TREE: The liver is normal in size, shape, and attenuation. No focal hepatic lesion or biliary ductal dilatation is present. The gallbladder is unremarkable with no evidence of radiopaque gallstones, gallbladder wall thickening, or obvious pericholecystic inflammatory changes. PANCREAS: Unremarkable. SPLEEN: Unremarkable. ADRENAL GLANDS: Unremarkable. KIDNEYS AND URETERS: The kidneys are normal in size, shape, and attenuation. No hydronephrosis, hydroureter, or calculi seen. No perinephric stranding. BLADDER: Decompressed GASTROINTESTINAL TRACT: Mild sigmoid diverticulosis. The appendix is not visualized. No pericecal inflammatory changes. Normal appearance of the terminal ileum. Swirling of the small bowel mesentery is noted. Multiple thin-walled dilated small bowel segments measuring up to 3.5 cm in diameter are identified. The transition between dilated and nondilated small bowel is suggested within the left upper abdominal quadrant (series 3 image 25, series 7 image 21. Mild reticulation of the adjacent small bowel mesentery is noted in this region (series 3 image 32). No free intraperitoneal gas identified. No free intraperitoneal fluid collections noted. Status post esophagectomy with gastric pull-through. The visualized stomach demonstrates moderate-marked fluid distention. No gross twisting or volvulus of the visualized stomach noted. The gastroesophageal junction is not included within the imaged field of view. Similar findings are present on the comparison CT abdomen and pelvis 05/25/2024. Moderate-marked fluid distention of the visualized stomach is noted. ABDOMINAL WALL: Midline abdominal mesh graft suture anchors are noted. No abdominal wall hernia is visualized. LYMPH NODES: Normal. VASCULAR: Diffuse calcific atherosclerosis PELVIC VISCERA: The prostate is not visualized. Surgical clips are present in the region of the prostate bed. OSSEOUS STRUCTURES: No suspicious skeletal lesions noted. CT/CT abdomen pelvis wo IV con IMPRESSION: *High-grade small bowel obstruction. A transition between dilated and nondilated small bowel is noted in the left upper abdominal quadrant adjacent to an area of twisting of the small bowel mesentery. Findings may represent obstruction related to otherwise occult adhesions or an occult internal hernia. Mild reticulation of the small bowel mesentery is noted in the region of twisting and is suspicious for mild edema and/or venous congestion of the small bowel mesentery. Venous congestion may indicate early ischemic changes of the small bowel. No evidence of intestinal perforation. Status post esophagectomy and gastric pull-through. The visualized thoracic stomach demonstrates moderate-marked fluid distention. No evidence of intestinal perforation. No abdominal wall hernias. A midline abdominal mesh graft is present without associated intestinal herniation. *Status post prostatectomy. No evidence of neoplasm within the abdomen and pelvis. *Bibasilar bronchiectasis and peribronchial inflammatory changes. Findings are suspicious for chronic aspiration pneumonitis. Electronically signed by: Tyler Lopez MD 07/01/2024 06:[address] [facility] Dictated By: Tyler Lopez MD Signed By: <Electronically signed by Tyler Lopez MD in OV> 07/01/24 0609 DD/ 0451 TD/TT: 07/01/24 0502 Barber Shop Operator: BRITTANY FL small bowel follow sue vail Reviewed date:07/01/2024 05:37:15 PM Interpretation:Abnormal Performing Lab: Notes/Report: [address] [address] Fluoroscopy Report Signed Patient: Yoseph Orellana MR#: [id number] : 1945 Acct:[id number] Age/Sex: 78 / M ADM Date: 07/01/24 Loc: .S3 361-[address]: Gamaliel Gilbert MD Ordering Physician: Leonel Alberto MD Date of Service: 07/01/24 Procedure(s): FL small bowel follow through Accession Number(s): [id number] cc: Matthew Hirsch DO; Leonel Alberto MD EXAMINATION: FL SMALL BOWEL SERIES CLINICAL INFORMATION: Rule out complete SBO COMPARISON: None available. Correlation made with CT abdomen and pelvis dated same day, as well as 05/25/2024, and 03/19/2024. TECHNIQUE: Following a spoilage worker image of the abdomen, contrast was administered orally, and interval abdominal radiographs were performed to assess for contrast progression through the small bowel. Following contrast transit through the small bowel, multiple overhead radiographs of the abdomen were obtained. FINDINGS: Safety Sealer image of the abdomen demonstrates loops of dilated small bowel within the central and left upper abdomen suggestive of SBO as seen on the CT examination of same day. Please refer to that report. There are herniorrhaphy clips present, as well as surgical clips within the inferior pelvis. There are foci of scarring in the lower lobes with mildly elevated left hemidiaphragm. Contrast opacifies the gastric pull-through procedure within the inferior thorax. The duodenal sweep, and proximal jejunum are markedly dilated and stacked, in an obstructive appearance. At 90 minutes, there is no further progression of contrast past 30 minute film, with no progression passed the suspected transition point in the left mid abdomen. No progression in past 30 minute film is evident. At 90 minutes, there is persistent opacification of the entire gastric pull-through with contrast. It has not progressed. No indirect evidence of free air. FL/FL small bowel follow through IMPRESSION: -Findings consistent with high-grade mechanical small bowel obstruction, with transition point as described on CT, which may be secondary to underlying small bowel volvulus or internal hernia given the CT appearance. Contrast remains within dilated proximal small bowel and throughout the gastric pull-through in the inferior thorax at 90 minutes. No definite progression of contrast past the 30 minute film. -For further elucidation of findings, please refer to the dedicated CT interpretation of same day, of which I concur. Electronically signed by: Martin Acosta MD 07/01/2024 05:[address] [facility] Dictated By: Martin Acosta MD Signed By: <Electronically signed by Martin Acosta MD in OV> 07/01/24 1720 DD/ 1420 TD/TT: 07/01/24 1645 Barber Shop Operator: XR chest 2V Reviewed date:07/01/2024 05:38:20 PM Interpretation:Abnormal Performing Lab: Notes/Report: [place] [address] XRay Report Signed Patient: Yoseph Orellana MR#: [id number] : 1945 Acct:[id number] Age/Sex: 78 / M ADM Date: 07/01/24 Loc: .S3 361-[address]: Gamaliel Gilbert MD Ordering Physician: Catrina Reese Date of Service: 07/01/24 Procedure(s): XR chest 2V Accession Number(s): [id number] cc: Catrina Reese; Matthew Hirsch DO EXAMINATION: XR CHEST CLINICAL INFORMATION: Hypoxia. History of esophageal cancer. COMPARISON: Chest radiograph 06/08/2024. Chest CT 01/01/2024. TECHNIQUE: 2 views of the chest were obtained. FINDINGS: Right costophrenic sulcus contour shown to represent the gastric pull-through. Mild basilar atelectasis. No consolidation or edema or effusion. Stable cardiomediastinal silhouette. Soft tissue indentation along the right lateral border of the trachea as was shown previously on the prior chest x-ray and chest CT. XR/XR chest 2V IMPRESSION: 1. Mild basilar atelectasis. No acute cardiopulmonary findings. 2. Soft tissue mass indentation along the right lateral border of the trachea. Electronically signed by: Elroy Mckinnon MD 07/01/2024 05:28 PM EST Dictated By: Elroy Mckinnon MD Signed By: <Electronically signed by Elroy Mckinnon MD in OV> 07/01/24 1728 DD/ 1400 TD/TT: 07/01/24 1409 Barber Shop Operator: KWABENA Kiran Lav - Possible Hematolo gy Reviewed date:07/03/2024 04:36:09 PM Interpretation:Hold Performing Lab:[facility], [address] [place] [phone] Notes/Report: Hold Lav - Possible Hematology SEE NOTE Specimen will be held untested for 8 hours. Call Hematology if testing is desired. Basic Metabolic Panel Reviewed date:07/03/2024 04:35:26 PM Interpretation:Abnormal Performing Lab:[facility], [address] [place] [phone] Notes/Report: Sodium 142 135-145 mmol/L Potassium 4.3 3.3-5.1 mmol/L Chloride 102 96-108 mmol/L Carbon Dioxide 25 22-29 mmol/L Anion Gap 19 12-20 Blood Urea Nitrogen 26 9-16 mg/dL Creatinine 1.31 0.5-1.4 mg/dL Creatinine Clr Calc Pharmacy 43.5 eGFR (calculated from the MDRD study equation) and eCrCl (calculated from the Cockcroft-Gault equation) are based on different parameters and may not yield comparable results. If eCrCl result is absurd, please check patient's height/weight. Estimated Glomerular Filt Rate 53 Chronic Kidney Disease: Estimated GFR < 60 mL/min/1.73m2 Severe Kidney Disease: Estimated GFR < 15 mL/min/1.73m2 Glucose Random 133 60-115 mg/dL Calcium 9.5 8.4-10.2 mg/dL Magnesium Reviewed date:07/03/2024 04:35:26 PM Interpretation:Normal Performing Lab:[facility], [address] [place] [phone] Notes/Report: Magnesium 2.5 1.6-2.6 mg/dL UA ClnCatch+Micro w/rflx Cul t Reviewed date:07/03/2024 04:35:26 PM Interpretation:Abnormal Performing Lab:[facility], [address] [place] [phone] Notes/Report: [id number] Urine, [place] Color Urine Yellow Appearance Urine Clear PH 5.0 5.0-9.0 Glucose Urine UA Negative Negative mg/dL Urine Blood Moderate (2+) Negative Specific [place] - Urine 1.010 1.005-1.025 Urine Protein Negative Neg-Trace mg/dL Urine Ketones Negative Negative mg/dL Nitrite Urine Negative Negative Leukocyte Esterase Urine Negative Negative RBC Urine 6-10 0-2 /HPF WBC Urine 0-5 0-5 /HPF Squamous Epithelial Cell Urine 0-2 0-2 /HPF Bacteria Urine None Seen None Seen Hyaline Casts Urine 0-2 0-2 /LPF SARS-CoV2/FLU/RSV Reviewed date:07/03/2024 04:35:26 PM Interpretation:Negative Performing Lab:[address] [address] Notes/Report: Influenza A PCR NEGATIVE Negative Influenza B PCR NEGATIVE Negative Resp Syncy Virus RNA Qual PCR NEGATIVE Negative SARS COV2 PCR INHOUSE NEGATIVE Negative All test results must be correlated with clinical findings. Negative results do not preclude SARS-CoV2, influenza A virus, influenza B virus and/or RSV infection and should not be used as the sole basis for treatment or other patient management decisions. Negative results must be combined with clinical observations, patient history, and epidemiological information. This test has not been evaluated for monitoring treatment of infection. This test has been authorized by the FDA under an Emergency Use Authorization (EUA) for use by authorized laboratories. Testing performed on the [employer] GeneXpert utilizing real-time RT-PCR. All SARS CoV2 and positive influenza A/B results are reported to [facility]. XR chest 1V Reviewed date:07/03/2024 04:38:23 PM Interpretation:Abnormal Performing Lab: Notes/Report: [address] [address] XRay Report Signed Patient: Yoseph Orellana MR#: [id number] : 1945 Acct:[id number] Age/Sex: 78 / M ADM Date: 07/01/24 Loc: [facility] 479-[address]: Gamaliel Gilbert MD Ordering Physician: Katie Zavala PA-C Date of Service: 07/02/24 Procedure(s): XR chest 1V Accession Number(s): [id number] cc: Matthew Hirsch DO; Katie Zavala PA-C EXAMINATION: XR CHEST CLINICAL INFORMATION: NG tube placement. COMPARISON: None available. TECHNIQUE: Frontal view of the chest was obtained. FINDINGS: Enterogastric tube with the tip coiled in the esophagus and directed cranially. Removal and replacement of the tube is recommended. Right-sided chest port in unchanged position. Interstitial and pulmonary vascular prominence, new when compared to the prior examination. Streaky bibasilar airspace opacities. Stable cardiomediastinal silhouette. XR/XR chest 1V IMPRESSION: 1. Enterogastric tube with the tip coiled in the esophagus and directed cranially. Removal and replacement of the tube is recommended. 2. Interstitial and pulmonary vascular prominence, new when compared to the prior examination. Streaky bibasilar airspace opacities. Findings can be seen in the setting of pulmonary edema. This critical result was discussed with Dr. Menchaca at 8:05 PM on 07/02/2024 and it was ascertained that the content and urgency of the report was understood at the time of direct communication. Electronically signed by: Samuel Becerra MD 07/02/2024 08:[address] [facility] Workstation: [id number] Dictated By: Samuel Becerra MD Signed By: <Electronically signed by Samuel Becerra MD in OV> 07/02/24 2017 DD/ 1400 TD/TT: 07/02/24 1417 Barber Shop Operator: Hold Lav - Possible Hematolo gy Reviewed date:07/03/2024 04:35:48 PM Interpretation:Hold Performing Lab:[address] [address] Notes/Report: Hold Lav - Possible Hematology SEE NOTE Specimen will be held untested for 8 hours. Call Hematology if testing is desired. Basic Metabolic Panel Reviewed date:07/03/2024 04:35:26 PM Interpretation:Abnormal Performing Lab:[address] [place] [address] Notes/Report: Sodium 142 135-145 mmol/L Potassium 4.3 3.3-5.1 mmol/L Chloride 105 96-108 mmol/L Carbon Dioxide 27 22-29 mmol/L Anion Gap 14 12-20 Blood Urea Nitrogen 33 9-16 mg/dL Creatinine 1.53 0.5-1.4 mg/dL Creatinine Clr Calc Pharmacy 37.2 eGFR (calculated from the MDRD study equation) and eCrCl (calculated from the Cockcroft-Gault equation) are based on different parameters and may not yield comparable results. If eCrCl result is absurd, please check patient's height/weight. Estimated Glomerular Filt Rate 44 Chronic Kidney Disease: Estimated GFR < 60 mL/min/1.73m2 Severe Kidney Disease: Estimated GFR < 15 mL/min/1.73m2 Glucose Random 100 60-115 mg/dL Calcium 8.3 8.4-10.2 mg/dL Complete Blood Count no Diff Reviewed date:07/04/2024 11:17:53 AM Interpretation:Abnormal Performing Lab:[address] [address] Notes/Report: White Blood Count 15.9 4.8-10.8 X10*3/uL Red Blood Count 4.13 4.60-5.80 X10*6/uL Hemoglobin 11.7 14.0-18.0 g/dl Hematocrit 36.6 42.0-52.0 % Mean Corpuscular Volume 88.6 80.0-98.0 fL Mean Corpuscular Hemoglobin 28.3 27.0-33.0 pg Mean Corpuscular HGB Conc 32.0 31.0-36.0 g/dl Red Cell Distribution Width 14.4 11.0-16.0 % Platelet Count 183 160-400 X10*3/uL Mean Platelet Volume 11.3 9.4-12.4 fL NRBC Pct Auto 0.0 0.0-0.2 /100WBC NRBC Abs Auto 0.000 0.0-0.012 X10*3/uL Basic Metabolic Panel Reviewed date:07/04/2024 11:17:53 AM Interpretation:Abnormal Performing Lab:[address] [address] Notes/Report: Sodium 141 135-145 mmol/L Potassium 3.9 3.3-5.1 mmol/L Chloride 107 96-108 mmol/L Carbon Dioxide 26 22-29 mmol/L Anion Gap 12 12-20 Blood Urea Nitrogen 26 9-16 mg/dL Creatinine 0.85 0.5-1.4 mg/dL Creatinine Clr Calc Pharmacy 67.0 eGFR (calculated from the MDRD study equation) and eCrCl (calculated from the Cockcroft-Gault equation) are based on different parameters and may not yield comparable results. If eCrCl result is absurd, please check patient's height/weight. Estimated Glomerular Filt Rate > 60 Chronic Kidney Disease: Estimated GFR < 60 mL/min/1.73m2 Severe Kidney Disease: Estimated GFR < 15 mL/min/1.73m2 Glucose Random 86 60-115 mg/dL Calcium 9.1 8.4-10.2 mg/dL B Type Natriuretic Peptide Reviewed date:07/04/2024 11:17:53 AM Interpretation:Normal Performing Lab:[address] [address] Notes/Report: B Type Natriuretic Peptide 54 <100 pg/mL For those patients who are being treated with Natrecor (nesiritide, recombinant BNP), BNP testing should be performed at least two hours post treatment in order to ensure that only endogenous levels of BNP are detected. Complete Blood Count no Diff Reviewed date:07/05/2024 09:24:00 AM Interpretation:Abnormal Performing Lab:[address] [address] Notes/Report: White Blood Count 12.9 4.8-10.8 X10*3/uL Red Blood Count 3.98 4.60-5.80 X10*6/uL Hemoglobin 11.3 14.0-18.0 g/dl Hematocrit 34.6 42.0-52.0 % Mean Corpuscular Volume 86.9 80.0-98.0 fL Mean Corpuscular Hemoglobin 28.4 27.0-33.0 pg Mean Corpuscular HGB Conc 32.7 31.0-36.0 g/dl Red Cell Distribution Width 14.4 11.0-16.0 % Platelet Count 187 160-400 X10*3/uL Mean Platelet Volume 11.1 9.4-12.4 fL NRBC Pct Auto 0.0 0.0-0.2 /100WBC NRBC Abs Auto 0.000 0.0-0.012 X10*3/uL Basic Metabolic Panel Reviewed date:07/05/2024 09:24:00 AM Interpretation:Abnormal Performing Lab:[facility], [address] [place] [phone] Notes/Report: Sodium 144 135-145 mmol/L Potassium 3.8 3.3-5.1 mmol/L Chloride 107 96-108 mmol/L Carbon Dioxide 26 22-29 mmol/L Anion Gap 15 12-20 Blood Urea Nitrogen 21 9-16 mg/dL Creatinine 0.72 0.5-1.4 mg/dL Creatinine Clr Calc Pharmacy 79.1 eGFR (calculated from the MDRD study equation) and eCrCl (calculated from the Cockcroft-Gault equation) are based on different parameters and may not yield comparable results. If eCrCl result is absurd, please check patient's height/weight. Estimated Glomerular Filt Rate > 60 Chronic Kidney Disease: Estimated GFR < 60 mL/min/1.73m2 Severe Kidney Disease: Estimated GFR < 15 mL/min/1.73m2 Glucose Random 84 60-115 mg/dL Calcium 9.2 8.4-10.2 mg/dL XR chest 1V Reviewed date:07/06/2024 04:45:28 PM Interpretation:Abnormal Performing Lab: Notes/Report: [address] [address] XRay Report Signed Patient: Yoseph Orellana MR#: [id number] : 1945 Acct:[id number] Age/Sex: 78 / M ADM Date: 07/01/24 Loc: [facility] 479-[address]: Gamaliel Gilbert MD Ordering Physician: Gamaliel Gilbert MD Date of Service: 07/06/24 Procedure(s): XR chest 1V Accession Number(s): [id number] cc: Gamaliel Gilbert MD; Matthew Hirsch DO EXAMINATION: XR CHEST CLINICAL INFORMATION: dyspnea COMPARISON: 07/02/2024, 07/01/2024, dating back to 05/25/2024. CT chest 01/01/2024. TECHNIQUE: AP portable view of the chest was obtained. FINDINGS: Right chest port in place, with tip terminating in the region of the cavoatrial junction. Previously seen malpositioned NG tube has been removed. Previously seen hazy opacities involving the bilateral lower lobes have resolved. There is now new airspace opacity in the right upper lung, suspicious for either asymmetrical pulmonary edema or pneumonia. Bronchiectasis is noted in the medial lower lungs bilaterally. No definite effusions or pneumothorax. Cardiac size is normal. Hilar silhouettes and mediastinal contours appear normal. Aorta is calcified and tortuous. Gastric pull-through procedure. Vertically oriented suture line noted right suprahilar region. No acute bony abnormality. XR/XR chest 1V IMPRESSION: 1. Right chest port is well-positioned, unchanged. 2. Malpositioned NG tube has been removed. 3. Interval development of airspace opacity in the right upper lobe, findings suggestive of pneumonia versus asymmetrical pulmonary edema. 4. Previously seen bibasilar opacities have resolved. Electronically signed by: Martin Acosta MD 07/06/2024 04:[address] [facility] Dictated By: Martin Acosta MD Signed By: <Electronically signed by Martin Acosta MD in OV> 07/06/24 1632 DD/ 1232 TD/TT: 07/06/24 1241 [employer] Operator: Hold Lav - Possible Hematolo gy Reviewed date:07/08/2024 11:01:57 AM Interpretation:Hold Performing Lab:[facility], [address] [place] [phone] Notes/Report: Hold Lav - Possible Hematology SEE NOTE Specimen will be held untested for 8 hours. Call Hematology if testing is desired. Basic Metabolic Panel Reviewed date:07/08/2024 11:01:57 AM Interpretation:Abnormal Performing Lab:[facility], [address] [place] [phone] Notes/Report: Sodium 146 135-145 mmol/L Potassium 3.5 3.3-5.1 mmol/L Chloride 110 96-108 mmol/L Carbon Dioxide 26 22-29 mmol/L Anion Gap 14 12-20 Blood Urea Nitrogen 15 9-16 mg/dL Creatinine 0.68 0.5-1.4 mg/dL Creatinine Clr Calc Pharmacy 83.8 eGFR (calculated from the MDRD study equation) and eCrCl (calculated from the Cockcroft-Gault equation) are based on different parameters and may not yield comparable results. If eCrCl result is absurd, please check patient's height/weight. Estimated Glomerular Filt Rate > 60 Chronic Kidney Disease: Estimated GFR < 60 mL/min/1.73m2 Severe Kidney Disease: Estimated GFR < 15 mL/min/1.73m2 Glucose Random 94 60-115 mg/dL Calcium 9.1 8.4-10.2 mg/dL Phosphorus Reviewed date:07/08/2024 11:01:57 AM Interpretation:Normal Performing Lab:[address] [address] Notes/Report: Phosphorus 3.0 2.7-4.5 mg/dL Magnesium Reviewed date:07/08/2024 11:01:57 AM Interpretation:Normal Performing Lab:[facility], [address] [place] [phone] Notes/Report: Magnesium 2.2 1.6-2.6 mg/dL Basic Metabolic Panel Reviewed date:07/08/2024 11:01:57 AM Interpretation:Abnormal Performing Lab:[address] [address] Notes/Report: Sodium 142 135-145 mmol/L Potassium 3.1 3.3-5.1 mmol/L Chloride 106 96-108 mmol/L Carbon Dioxide 28 22-29 mmol/L Anion Gap 10 12-20 Blood Urea Nitrogen 14 9-16 mg/dL Creatinine 0.67 0.5-1.4 mg/dL Creatinine Clr Calc Pharmacy 85.0 eGFR (calculated from the MDRD study equation) and eCrCl (calculated from the Cockcroft-Gault equation) are based on different parameters and may not yield comparable results. If eCrCl result is absurd, please check patient's height/weight. Estimated Glomerular Filt Rate > 60 Chronic Kidney Disease: Estimated GFR < 60 mL/min/1.73m2 Severe Kidney Disease: Estimated GFR < 15 mL/min/1.73m2 Glucose Random 116 60-115 mg/dL Calcium 8.3 8.4-10.2 mg/dL Phosphorus Reviewed date:07/08/2024 11:01:57 AM Interpretation:Normal Performing Lab:[address] [address] Notes/Report: Phosphorus 3.8 2.7-4.5 mg/dL Magnesium Reviewed date:07/08/2024 11:01:57 AM Interpretation:Normal Performing Lab:[address] [address] Notes/Report: Magnesium 2.2 1.6-2.6 mg/dL Albumin Level Reviewed date:07/08/2024 11:01:57 AM Interpretation:Abnormal Performing Lab:[address] [address] Notes/Report: Albumin Level 2.3 3.5-5.0 g/dL Complete Blood Count no Diff Reviewed date:07/10/2024 12:04:13 PM Interpretation:Abnormal Performing Lab:[address] [address] Notes/Report: White Blood Count 9.5 4.8-10.8 X10*3/uL Red Blood Count 4.47 4.60-5.80 X10*6/uL Hemoglobin 12.5 14.0-18.0 g/dl Hematocrit 38.6 42.0-52.0 % Mean Corpuscular Volume 86.4 80.0-98.0 fL Mean Corpuscular Hemoglobin 28.0 27.0-33.0 pg Mean Corpuscular HGB Conc 32.4 31.0-36.0 g/dl Red Cell Distribution Width 14.0 11.0-16.0 % Platelet Count 239 160-400 X10*3/uL Mean Platelet Volume 11.0 9.4-12.4 fL NRBC Pct Auto 0.0 0.0-0.2 /100WBC NRBC Abs Auto 0.000 0.0-0.012 X10*3/uL Basic Metabolic Panel Reviewed date:07/09/2024 01:18:55 PM Interpretation:Abnormal Performing Lab:[address] [address] Notes/Report: Sodium 137 135-145 mmol/L Potassium 3.2 3.3-5.1 mmol/L Chloride 103 96-108 mmol/L Carbon Dioxide 27 22-29 mmol/L Anion Gap 10 12-20 Blood Urea Nitrogen 15 9-16 mg/dL Creatinine 0.68 0.5-1.4 mg/dL Creatinine Clr Calc Pharmacy 83.8 eGFR (calculated from the MDRD study equation) and eCrCl (calculated from the Cockcroft-Gault equation) are based on different parameters and may not yield comparable results. If eCrCl result is absurd, please check patient's height/weight. Estimated Glomerular Filt Rate > 60 Chronic Kidney Disease: Estimated GFR < 60 mL/min/1.73m2 Severe Kidney Disease: Estimated GFR < 15 mL/min/1.73m2 Glucose Random 111 60-115 mg/dL Calcium 7.8 8.4-10.2 mg/dL Phosphorus Reviewed date:07/09/2024 01:18:55 PM Interpretation:Normal Performing Lab:[address] [address] Notes/Report: Phosphorus 3.5 2.7-4.5 mg/dL Magnesium Reviewed date:07/09/2024 01:18:55 PM Interpretation:Normal Performing Lab:[address] [address] Notes/Report: Magnesium 2.1 1.6-2.6 mg/dL B Type Natriuretic Peptide Reviewed date:07/10/2024 12:04:13 PM Interpretation:Abnormal Performing Lab:[address] [address] Notes/Report: B Type Natriuretic Peptide 143 <100 pg/mL For those patients who are being treated with Natrecor (nesiritide, recombinant BNP), BNP testing should be performed at least two hours post treatment in order to ensure that only endogenous levels of BNP are detected. Albumin Level Reviewed date:07/09/2024 01:18:55 PM Interpretation:Abnormal Performing Lab:[address] [address] Notes/Report: Albumin Level 2.3 3.5-5.0 g/dL Triglycerides Reviewed date:07/09/2024 01:18:55 PM Interpretation:Normal Performing Lab:[facility], [address] [place] [address] Notes/Report: Triglycerides 105 <150 mg/dL Desirable Triglyceride: less than 150 mg/dL Borderline High Triglyceride 150-199 mg/dL High Triglyceride: 200-499 mg/dL Very High Triglyceride: greater than or equal to 5OO mg/dL XR chest 1V Reviewed date:07/09/2024 01:19:45 PM Interpretation:Abnormal Performing Lab: Notes/Report: [facility] [address] [place] [address] XRay Report Signed Patient: Yoseph Orellana MR#: [id number] : 1945 Acct:[id number] Age/Sex: 78 / M ADM Date: 07/01/24 Loc: [facility] 354-[address]: Noris HUBBARD Ordering Physician: Noris Vora Date of Service: 07/09/24 Procedure(s): XR chest 1V Accession Number(s): [id number] cc: Noris Vora; Matthew Hirsch DO EXAMINATION: XR CHEST CLINICAL INFORMATION: Shortness of breath. COMPARISON: Most recent chest radiograph dated 07/06/2024. TECHNIQUE: Frontal view of the chest was obtained. FINDINGS: Diffuse interstitial prominence with slight interval increase in pulmonary vascular prominence. Right upper lobe airspace opacities are unchanged. Right chest wall port with catheter tip in the SVC. No pleural effusion or pneumothorax. Stable cardiomediastinal silhouette. XR/XR chest 1V IMPRESSION: Diffuse interstitial prominence with slight interval increase in pulmonary vascular prominence. Stable right upper lobe airspace opacities. Electronically signed by: Samuel Becerra MD 07/09/2024 11:[address] [facility] Dictated By: Samuel Becerra MD Signed By: <Electronically signed by Samuel Becerra MD in OV> 07/09/24 1126 DD/ 1100 TD/TT: 07/09/24 1109 [employer] Operator: Basic Metabolic Panel Reviewed date:07/10/2024 12:04:13 PM Interpretation:Abnormal Performing Lab:[facility], [address] [place] [phone] Notes/Report: Sodium 138 135-145 mmol/L Potassium 4.2 3.3-5.1 mmol/L Chloride 105 96-108 mmol/L Carbon Dioxide 26 22-29 mmol/L Anion Gap 11 12-20 Blood Urea Nitrogen 15 9-16 mg/dL Creatinine 0.66 0.5-1.4 mg/dL Creatinine Clr Calc Pharmacy 86.3 eGFR (calculated from the MDRD study equation) and eCrCl (calculated from the Cockcroft-Gault equation) are based on different parameters and may not yield comparable results. If eCrCl result is absurd, please check patient's height/weight. Estimated Glomerular Filt Rate > 60 Chronic Kidney Disease: Estimated GFR < 60 mL/min/1.73m2 Severe Kidney Disease: Estimated GFR < 15 mL/min/1.73m2 Glucose Random 118 60-115 mg/dL Calcium 8.3 8.4-10.2 mg/dL Phosphorus Reviewed date:07/10/2024 12:04:13 PM Interpretation:Normal Performing Lab:[facility], [address] [place] [phone] Notes/Report: Phosphorus 3.5 2.7-4.5 mg/dL Magnesium Reviewed date:07/10/2024 12:04:13 PM Interpretation:Normal Performing Lab:[facility], [address] [place] [phone] Notes/Report: Magnesium 2.2 1.6-2.6 mg/dL Albumin Level Reviewed date:07/10/2024 12:04:13 PM Interpretation:Abnormal Performing Lab:[facility], [address] [place] [phone] Notes/Report: Albumin Level 2.3 3.5-5.0 g/dL Basic Metabolic Panel Reviewed date:07/11/2024 08:52:50 AM Interpretation:Normal Performing Lab:[facility], [address] [place] [phone] Notes/Report: Sodium 137 135-145 mmol/L Potassium 4.9 3.3-5.1 mmol/L Chloride 105 96-108 mmol/L Carbon Dioxide 24 22-29 mmol/L Anion Gap 13 12-20 Blood Urea Nitrogen 16 9-16 mg/dL Creatinine 0.64 0.5-1.4 mg/dL Creatinine Clr Calc Pharmacy 89.0 eGFR (calculated from the MDRD study equation) and eCrCl (calculated from the Cockcroft-Gault equation) are based on different parameters and may not yield comparable results. If eCrCl result is absurd, please check patient's height/weight. Estimated Glomerular Filt Rate > 60 Chronic Kidney Disease: Estimated GFR < 60 mL/min/1.73m2 Severe Kidney Disease: Estimated GFR < 15 mL/min/1.73m2 Glucose Random 113 60-115 mg/dL Calcium 9.0 8.4-10.2 mg/dL Phosphorus Reviewed date:07/11/2024 08:52:50 AM Interpretation:Normal Performing Lab:[facility], [address] [place] [phone] Notes/Report: Phosphorus 4.0 2.7-4.5 mg/dL Magnesium Reviewed date:07/11/2024 08:52:50 AM Interpretation:Normal Performing Lab:[facility], [address] [place] [phone] Notes/Report: Magnesium 2.1 1.6-2.6 mg/dL Albumin Level Reviewed date:07/11/2024 08:53:01 AM Interpretation:Abnormal Performing Lab:[facility], [address] [place] [phone] Notes/Report: Albumin Level 2.5 3.5-5.0 g/dL Hold Lav - Possible Hematolo gy Reviewed date:07/12/2024 09:18:48 AM Interpretation:Hold Performing Lab:[facility], [address] [place] [phone] Notes/Report: Hold Lav - Possible Hematology SEE NOTE Specimen will be held untested for 8 hours. Call Hematology if testing is desired. Basic Metabolic Panel Reviewed date:07/12/2024 09:18:48 AM Interpretation:Normal Performing Lab:[facility], [address] [place] [phone] Notes/Report: Unable to obtain KALHOTP Sodium 136 135-145 mmol/L Potassium 5.0 3.3-5.1 mmol/L Chloride 105 96-108 mmol/L Carbon Dioxide 23 22-29 mmol/L Anion Gap 13 12-20 Blood Urea Nitrogen 17 9-16 mg/dL Creatinine 0.72 0.5-1.4 mg/dL Creatinine Clr Calc Pharmacy 79.1 eGFR (calculated from the MDRD study equation) and eCrCl (calculated from the Cockcroft-Gault equation) are based on different parameters and may not yield comparable results. If eCrCl result is absurd, please check patient's height/weight. Estimated Glomerular Filt Rate > 60 Chronic Kidney Disease: Estimated GFR < 60 mL/min/1.73m2 Severe Kidney Disease: Estimated GFR < 15 mL/min/1.73m2 Glucose Random 114 60-115 mg/dL Calcium 9.2 8.4-10.2 mg/dL Phosphorus Reviewed date:07/12/2024 09:18:48 AM Interpretation:Abnormal Performing Lab:[facility], [address] [place] [phone] Notes/Report: Unable to obtain KALHOTP Phosphorus 4.6 2.7-4.5 mg/dL Magnesium Reviewed date:07/12/2024 09:18:48 AM Interpretation:Normal Performing Lab:[facility], [address] [place] [phone] Notes/Report: Unable to obtain KALHOTP Magnesium 2.2 1.6-2.6 mg/dL Albumin Level Reviewed date:07/12/2024 09:18:48 AM Interpretation:Abnormal Performing Lab:[facility], [address] [place] [phone] Notes/Report: Unable to obtain KALHOTP Albumin Level 2.6 3.5-5.0 g/dL Basic Metabolic Panel Reviewed date:07/13/2024 10:30:27 AM Interpretation:Normal Performing Lab:[facility], [address] [place] [phone] Notes/Report: Sodium 138 135-145 mmol/L Potassium 4.4 3.3-5.1 mmol/L Chloride 106 96-108 mmol/L Carbon Dioxide 24 22-29 mmol/L Anion Gap 12 12-20 Blood Urea Nitrogen 16 9-16 mg/dL Creatinine 0.78 0.5-1.4 mg/dL Creatinine Clr Calc Pharmacy 73.0 eGFR (calculated from the MDRD study equation) and eCrCl (calculated from the Cockcroft-Gault equation) are based on different parameters and may not yield comparable results. If eCrCl result is absurd, please check patient's height/weight. Estimated Glomerular Filt Rate > 60 Chronic Kidney Disease: Estimated GFR < 60 mL/min/1.73m2 Severe Kidney Disease: Estimated GFR < 15 mL/min/1.73m2 Glucose Random 94 60-115 mg/dL Calcium 8.9 8.4-10.2 mg/dL Phosphorus Reviewed date:07/13/2024 10:30:27 AM Interpretation:Normal Performing Lab:[facility], [address] [place] [phone] Notes/Report: Phosphorus 4.3 2.7-4.5 mg/dL Magnesium Reviewed date:07/13/2024 10:30:27 AM Interpretation:Normal Performing Lab:[facility], [address] [place] [phone] Notes/Report: Magnesium 2.1 1.6-2.6 mg/dL Albumin Level Reviewed date:07/13/2024 10:30:27 AM Interpretation:Abnormal Performing Lab:[facility], [address] [place] [phone] Notes/Report: Albumin Level 2.6 3.5-5.0 g/dL REASON FOR REFERRAL Reason Esophageal dysphagia Diagnosis 1 Esophageal dysphagia (R13.10) Referral Organization Matthew Mireles, FACP Referring Provider First Name Matthew Referring Provider Last Name Joycelyn Referring Provider Speciality Internal M edicine Referred Provider Matthew Powell Referred Provider Specialty Gastroentero logy General Notes [facility] 024 10:27:16 AM EST > PLEASE REVIEW FOR EXPEDITED APPOINTMENT. THANKS FOR YOUR HELP!Ludy Joan 08/12/2023 10:27:26 AM EST > referral faxed. Torie, at Dr. Powell's office, will contact this office with appointment details.Ludy Joan 08/12/2023 01:16:00 PM EST > patient notified. Referral Priority Routine Referral Appointment Date 08/13/2023 Reason Esophageal Dysphagia History of esophageal cancer Diagnosis 1 Esophageal dysphagia (R13.10) Referral Organization Matthew Mireles FACP Referring Provider First Name Matthew Referring Provider Last Name Joycelyn Referring Provider Speciality Internal edicine Referred Provider Estiven Baird Referred Provider Specialty Otology, Lar yngology, Rhinology General Notes [facility] 024 10:30:30 AM EST > PLEASE REVIEW FOR [...] Referring Provider Last Name Joycelyn Referring Provider Speciality Internal edicine Referred Provider [facility] Referred Provider Specialty Audiologists General Notes Emelia Trujillo 02:39:40 PM EDT > Referral faxed prior to scheduling, [facility] 02/10/2024 01:18:46 PM EDT > patient agrees to initial consultation regarding achievable goals. Referral Priority Routine MEDICATIONS Medication SIG (Take, Route, Fr equency, Duration) Notes Start Date End Date Status Multivitamin - 1 tablet Orally Once a day Active Docusate Sodium 100 MG 1 capsule as need ed Orally Twice a day Active Gabapentin 300 MG 2 capsules Orally Tw ice a day for 90 days Active MiraLax 17 GM/SCOOP 1 scoop in a glass o f water Orally Once a day Active Verapamil HCl ER 240 MG 1 tablet Orally Once a day Active Omeprazole 40 MG 1 capsule Orally Twi ce a day for 90 days Active IMMUNIZATIONS Vaccine Route Administration Date Status [...] Problem Essential hypertensi on (I10) Active confirmed 56910851 Problem Erectile dysfunction , unspecified erectile dysfunction type (N52.9) Active confirmed 514972494 Problem Neuropathy (G62.9) Active confirmed 386 802474 Problem History of prostate cancer (Z85.46) Active confirmed 395700159 Problem Incisional hernia, without obstruction or gangrene (K43.2) Active confirmed 613267790 Problem Hypercholesterolemia (E78.00) Active confirmed 08765819 Problem Esophageal dysphagia (R13.10) Active confirmed 35808698 Problem Allergic rhinitis, unspecified seasonality, unspecified trigger (J30.9) Active confirmed 69779764 Problem Esophageal carcinoma (C15.9) Active confirmed 179062719 Problem Pressure injury of sacral region, stage 1 (L89.151) Active confirmed 018822688 Problem SBO (small bowel obstruction) (K56.609) Active confirmed 312449927 Problem Vocal cord paralysis (J38.00) Active confirmed 049532869 VITAL SIGNS Blood pressure diastolic 58 mm Hg 04/05/2024 Height 64.75 in 04/05/2024 Blood pressure systolic 102 mm Hg 04/05/2024 Weight 164 lbs 04/05/2024 BMI 27.50 kg/m2 04/05/2024 Encounters Encounter Location Date Provider Diagnosis Matthew Hirsch DO, [address] [id number] 01/19/2024 Matthew Hirsch Esophageal dysphagia R13.10 ; Essential hypertension I10 ; Esophageal carcinoma C15.9 and Allergic rhinitis, unspecified seasonality, unspecified trigger J30.9 Matthew Hirsch DO, [address] [id number] 11/17/2023 Matthew Hirsch Esophageal dysphagia R13.10 ; Vocal cord paralysis J38.00 ; Essential hypertension I10 ; Allergic rhinitis, unspecified seasonality, unspecified trigger J30.9 ; SBO (small bowel obstruction) K56.609 ; Erectile dysfunction, unspecified erectile dysfunction type N52.9 and Esophageal carcinoma C15.9 Matthew Hirsch DO, [address] [id number] 04/20/2024 Matthew Hirsch DO, [address] [id number] 07/05/2024 Matthew Hirsch DO, [address] [id number] 04/05/2024 Matthew Hirsch Essential hypertension I10 ; SBO (small bowel obstruction) K56.609 ; Neuropathy G62.9 ; Esophageal dysphagia R13.10 and Allergic rhinitis, unspecified seasonality, unspecified trigger J30.9 Matthew Hirsch DO, [address] [id number] 08/11/2023 Matthew Hirsch DO, [address] [id number] 09/10/2023 Matthew Hirsch DO, [address] [id number] 10/09/2023 Matthew Hirsch DO, [address] [id number] 10/26/2023 Matthew Hirsch Esophageal carcinoma C15.9 Matthew Hirsch DO, [address] [id number] 01/18/2024 Matthew Hirsch Esophageal dysphagia R13.10 Matthew Hirsch DO, [address] [id number] 01/20/2024 Matthew Hirsch DO, [address] [id number] 01/22/2024 Matthew Hirsch DO, [address] [id number] 02/01/2024 Matthew Hirsch DO, [address] [id number] 02/22/2024 Matthew Hirsch Esophageal carcinoma C15.9 Matthew Hirsch DO, [address] [id number] 04/12/2024 Matthew Hirsch DO, [address] [id number] 04/25/2024 Matthew Hirsch DO, [address] [id number] 05/25/2024 Matthew Hirsch DO, [address] [id number] 06/06/2024 Matthew Hirsch Neuropathy G62.9 Matthew Hirsch DO, [address] [id number] 06/07/2024 Matthew Hirsch DO, [address] [id number] 06/03/2024 Matthew Hirsch Aspiration pneumonia , unspecified aspiration pneumonia type, unspecified laterality, unspecified part of lung J69.0 ; Esophageal dysphagia R13.10 ; SBO (small bowel obstruction) K56.609 and Neuropathy G62.9 Matthew Hirsch DO, [address] [id number] 07/01/2024 Matthew Hirsch ASSESSMENTS Encounter Date Diagnosis Assessment Notes Treatment Notes Treatment Clinical Notes 01/19/2024 Essential hypertension (ICD-10 - I10) Check BP in the office next week 01/19/2024 Esophageal dysphagia (ICD-10 - R13.10) 11/17/2023 Esophageal dysphagia (ICD-10 - R13.10) 11/17/2023 Vocal cord paralysis (ICD-10 - J38.00) If Yoseph's lab work and EKG are reasonable he will be an acceptable candidate for the proposed surgical procedure and will be medically cleared for surgery 04/05/2024 Essential hypertension (ICD-10 - I10) 04/05/2024 SBO (small bowel obstruction) (ICD-10 - K56.609) 10/26/2023 Esophageal carcinoma (ICD-10 - C15.9) 01/18/2024 Esophageal dysphagia (ICD-10 - R13.10) 02/22/2024 Esophageal carcinoma (ICD-10 - C15.9) 06/06/2024 Neuropathy (ICD-10 - G62.9) 06/03/2024 Esophageal dysphagia (ICD-10 - R13.10) 06/03/2024 Aspiration pneumonia, unspecified aspiration pneumonia type, unspecified laterality, unspecified part of lung (ICD-10 - J69.0) 01/19/2024 Esophageal carcinoma (ICD-10 - C15.9) 11/17/2023 Essential hypertension (ICD-10 - I10) 04/05/2024 Neuropathy (ICD-10 - G62.9) 06/03/2024 SBO (small bowel obstruction) (ICD-10 - K56.609) 01/19/2024 Allergic rhinitis, unspecified seasonality, unspecified trigger (ICD-10 - J30.9) 11/17/2023 Allergic rhinitis, unspecified seasonality, unspecified trigger (ICD-10 - J30.9) 04/05/2024 Esophageal dysphagia (ICD-10 - R13.10) 06/03/2024 Neuropathy (ICD-10 - G62.9) 11/17/2023 SBO (small bowel obstruction) (ICD-10 - K56.609) 04/05/2024 Allergic rhinitis, unspecified seasonality, unspecified trigger (ICD-10 - J30.9) 11/17/2023 Erectile dysfunction, unspecified erectile dysfunction type (ICD-10 - N52.9) 11/17/2023 Esophageal carcinoma (ICD-10 - C15.9) PLAN OF TREATMENT Pending Test Test Name Order Date Electrocardiogram (EKG) 11/17/2023 Next Appt Details Provider Name:Matthew byrne, 2024 01:30:00 PM, [address] [place] [address], [phone], Insurance Providers Payer Name Payer Address Payer Phone Subscriber Number Group Number Insured Name Patient Relationship to Insured Coverage Start Date Coverage End Date [employer] [address] [place] [phone] [id number] MagdyYoseph garcia Self - patient is the insured 1 [...]
--- OUTSIDE RECORDS SUMMARY | 2024-07-20 21:45 | XMS_ITS ---
Author Organization [facility] Address [address] [place] [address] Care Team Providers Care Medical Imaging Technologist Name Role Phone Matthew Hirsch DO Primary Care Provider Unavail able Matthew Powell Unavailable [phone] ALLERGIES No Known Allergies REASON FOR VISIT [...] Code Notes Problem Hoarseness (R49.0) Active confirmed 87950647 Problem Pharyngeal dysphagia (R13.13) Active confirmed 27400621882619 Problem Chronic cough (R05.3) Active confirmed 30284803 VITAL SIGNS BMI 25.09 kg/m2 08/13/2023 Blood pressure systolic 00 mm Hg 08/13/19 24 Blood pressure diastolic 00 mm Hg 024 Height 68 in 08/13/2023 Temperature 97.7 degrees Fahrenheit 08/13/19 24 Weight 165 lbs 08/13/2023 Encounters Encounter Location Date Provider Diagnosis [facility] [address] [place] [address] 08/13/2023 Matthew Powell Hoarseness R49.0 ; Pharyngeal [...]
--- OUTSIDE RECORDS SUMMARY | 2024-07-20 21:46 | XMS_ITS | Patient Health Record ---
Author Organization [facility] Address [address] [place] [address] Care Team Providers Care Motion Study Analyst Name Role Phone Matthew Hirsch DO Primary Care Provider Unavail able Matthew Powell Unavailable [phone] ALLERGIES No Known Allergies RESULTS Component Value Reference Range Notes FL barium swallow modified Reviewed date:10/27/2023 10:59:30 PM Interpretation: Performing Lab: Notes/Report: [address] [address] Fluoroscopy Report Signed Patient: Fuad Orellana MR#: [id number] : 1945 Acct:[id number] Age/Sex: 78 / M ADM Date: 09/09/23 Loc: [facility] Attending Dr: Matthew Powell MD Ordering Physician: Matthew Powell Date of Service: 09/09/23 Procedure(s): FL barium swallow modified Accession Number(s): [id number] cc: Matthew Powell EXAMINATION: Modified Barium Swallows [...] in OV> 10/05/23 1124 DD/ 1507 TD/TT: Snowmaker: REASON FOR REFERRAL No Information MEDICATIONS Medication [...] Notes Problem Esophageal dysphagia (R13.10) Active confirmed 93421021 Problem Gastroesophageal reflux disease, esophagitis presence not specified (K21.9) Active confirmed 064212066 Problem Abnormal upper gastrointestinal barium series (R93.3) Active confirmed 694855468 Problem 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) Active confirmed 251489011 Problem History of esophageal cancer (Z85.01) Active confirmed 951178189 Problem Small bowel obstruction (K56.609) Active confirmed 504641507 Problem Constipation, unspecified constipation type (K59.00) Active confirmed 08425681 Problem Dysphagia (R13.10) Active confirmed Dys phagia (47696553) Problem Personal history of malignant neoplasm of esophagus (Z85.01) Active confirmed History of malignant neoplasm of esophagus (328768957) Problem Hoarseness (R49.0) Active confirmed 502 44246 Problem Pharyngeal dysphagia (R13.13) Active confirmed 41445700006615 Problem Chronic cough (R05.3) Active confirmed 38385255 VITAL SIGNS Temperature 97.7 degrees Fahrenheit 08/13/2023 Blood pressure diastolic 00 mm Hg 08/13/2023 Height 68 in 08/13/2023 Blood pressure systolic 00 mm Hg 08/13/2023 Weight 165 lbs 08/13/2023 BMI 25.09 kg/m2 08/13/2023 Encounters Encounter Location Date Provider Diagnosis [facility] [address] [place] [address] 08/13/2023 Matthew Powell Hoarseness R49.0 ; Pharyngeal dysphagia R13.13 ; History of esophageal cancer Z85.01 and Chronic cough R05.3 [facility] [address] [place] [address] 08/12/2023 Matthew Powell ASSESSMENTS Encounter Date Diagnosis [...] Insured Coverage Start Date Coverage End Date [facility] [address] [facility] [place], [place] [address] [id number] NORMANDI N, FUAD Self - patient is the insured MEDICAL (GENERAL) HISTORY Medical History History ICD Code Denies [place],DM,CVA,Lung disease,renal dise ase Prostate cancer--surgery as below HTN Hyperlipidemia Negative screening colonoscopies in 1998 and in 2009 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 Brooks--surgery with Dr. Garvey at [facility] 02/2019 SBO 02/2020--treated with NG tube--normal SB [...]
== END 2024-07-19 14:04 | disposition home or self-care (01) ==
PROVIDERS: PCP Internal Medicine; Visit Provider Surgery
DX: Z98.890 Other specified postprocedural states (principal); Z09 Encounter for follow-up examination after completed treatment for conditions other than malignant neoplasm
CPT/HCPCS: 99024

== ENCOUNTER → 2024-07-19 13:44 | Outpatient (BNVA) | payer MEDICARE, SELFPAY | PROVIDERS: PCP Internal Medicine; Visit Provider Surgery | DX: Z09 Encounter for follow-up examination after completed treatment for conditions other than malignant neoplasm (principal); Z98.890 Other specified postprocedural states | CPT/HCPCS: 99212 ==

== ENCOUNTER 2024-07-24 09:00 | Inpatient (IN) | payer MEDICARE, SELFPAY ==
--- NOTE | ~2024-07-24 | XR_ITS ---
EXAMINATION: XR CHEST CLINICAL INFORMATION: weakness COMPARISON: 07/09/2024 TECHNIQUE: Portable 10:09 AM view of the chest was obtained. FINDINGS: Port-A-Cath remains in place. Increased markings particularly right greater left upper lung zones measurably improving. Low lung volumes. No discrete mass or infiltrate. No pleural disease. Heart and mediastinal remains stable and within normal limits. XR/XR chest 1V IMPRESSION: As above. Electronically signed by: Tejinder Gmaez MD 07/24/2024 12:18 PM NAHOMY BENITEZ
--- NOTE | ~2024-07-24 | CT_ITS ---
EXAMINATION: CT ABDOMEN AND PELVIS WITH CONTRAST CLINICAL INFORMATION: Abdominal pain, nausea COMPARISON: 07/01/2024 TECHNIQUE: Multidetector volumetric images were obtained from the superior aspect of the liver through the pubic symphysis following administration 85 mL of Omnipaque 350 intravenous contrast. Sagittal and coronal reformatted images were obtained on the technologist's workstation. Oral contrast: No This CT examination was performed using dose optimization techniques as appropriate, variously including the following: *Automated exposure control *Adjustment of mA and/or kV according to patient size (this includes techniques or standardized protocols for targeted exams where dose is matched to indication/reason for exam; i.e. extremities or head) *Use of iterative reconstruction technique DLP: 481 mGy-cm FINDINGS: LUNG BASES: The visualized lung bases are unremarkable. Gastric pull-through surgical changes. This is only partially imaged. LIVER, GALLBLADDER, AND BILIARY TREE: Small subcapsular hepatic cysts unchanged. No new findings. No biliary ductal dilatation. The gallbladder is unremarkable with no evidence of radiopaque gallstones, gallbladder wall thickening, or obvious pericholecystic inflammatory changes. PANCREAS: Unremarkable. SPLEEN: Unremarkable. ADRENAL GLANDS: Unremarkable. KIDNEYS AND URETERS: The kidneys are normal in size, shape, and attenuation. No hydronephrosis, hydroureter, or calculi seen. No perinephric stranding. BLADDER: Unremarkable. GASTROINTESTINAL TRACT: Postsurgical changes. No evidence for any obstruction focal lesion. No acute inflammatory changes. ABDOMINAL WALL: Postsurgical changes without evidence for any definite hernia. Mesh placement. LYMPH NODES: Normal. VASCULAR: Unremarkable. PELVIC VISCERA: Post prostatectomy changes. OSSEOUS STRUCTURES: Unremarkable. CT/CT abdomen pelvis w IV con IMPRESSION: No evidence for any bowel obstruction or acute inflammatory changes. No specific findings to explain patient's symptoms. Fleischner guidelines were followed. Electronically signed by: Tejinder Gamez MD 07/24/2024 01:54 PM EST
[2024-07-24 09:04] VITALS: BP 146/83; BP 162/80; PULSE 72; PULSE 84; RESP 16; TEMP 36.7; O2SAT 95; O2SAT 96; BMI 22.1
[2024-07-24 09:13] VITALS: RESP 16; O2SAT 94
--- NOTE | 2024-07-24 09:14 | ED_ITS ---
HPI - Abdominal Pain General Chief Complaint: Nausea/Vomiting/Diarrhea Stated Complaint: ABD PAIN SINCE BOWEL OBST SURG 1M AGO PER EMS Time Seen by Provider: 07/24/24 09:01 Source: patient, EMS and old records reviewed Mode of arrival: EMS Limitations: no limitations History of Present Illness ED Provider: LARRY HPI narrative: 78 yo male with PMH of esophageal adenocarcinoma s/p distal esophagectomy with gastric pull through in 2019 at [facility], prostate cancer, recurrence of esophageal cancer 2021 s/p chemoc follows with Dr. Brooks, multiple SBOs, GERD, HTN, neuropathy, admitted 07/01 to 07/13/24 for SBO s/p ex lap with extensive lysis of adhesions, needed TPN on discharge was tolerating diet. He returns today with c/o not feeling well since surgery. He eats 3 bites of food and then gets so nauseated. He feels like something is stuck in his throat. He has not had a fever. He has some incisional pain. He notes normal BM and flatus. He states he is so weak and he is down to 146lbs. MD elicited complaint: abdominal pain (FTT) Pertinent past history: other Onset (ago): day(s) (07/04) Pain Consistency: intermittent Location: diffuse Severity: mild Quality: aching Radiation: none Migration to: no migration Exacerbating factors: eating Relieving factors: nothing Context: recent surgery/procedure and history of similar episodes Associated symptoms: nausea Related Data Home Medications ?Medication ?Instructions ?Recorded ?Confirmed verapamil 240 mg 24 hr 240 mg PO DAILY 11/27/21 07/19/24 capsule,extended release omeprazole 40 mg capsule,delayed 40 mg PO BID@0630,1630 06/05/23 07/19/24 release gabapentin 300 mg capsule 600 mg PO BID 11/18/23 07/19/24 docusate sodium 100 mg tablet 100 mg PO BID 05/25/24 07/19/24 multivitamin 1 tab PO DAILY 05/25/24 07/19/24 Previous Rx's ?Medication ?Instructions ?Recorded polyethylene glycol 3350 17 gram 17 g PO DAILY #30 ea 03/21/24 oral powder packet Allergies Allergy/AdvReac Type Severity Reaction Status Date / Time No Known Allergies Allergy Verified 07/24/24 09:12 [No Known Allergies*] Review of Systems Review of Systems Constitutional : No Fever, No Chills, pos Fatigue, pos weight loss ENT/Mouth : No sore throat, No Rhinorrhea Eyes: No Eye Pain, No Swelling, No Redness Cardiovascular : No Chest Pain, No SOB, No Dyspnea on Exertion Respiratory : No Cough, No Sputum Gastrointestinal : pos Nausea, No Vomiting, No Diarrhea, pos abdominal Pain Genitourinary : No Dysuria, No Urinary Frequency, No Hematuria, Musculoskeletal : No joint pain, No Myalgias, No Joint Swelling Skin : No Skin Lesions, No rash Neuro : pos Weakness, No Numbness, No Dizziness, positive Headache All other systems reviewed and are negative [facility] Past Medical History Attestation statement: The following information was validated with the patient. 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 GERD (gastroesophageal reflux disease) Constipation Throat mass Mass of right side of neck Personal history of nicotine dependence History of prostate cancer (~2004) History of small bowel obstruction (~2019) Shingles Vitamin B12 deficiency Diverticulosis (~1998) Osteoarthritis Basal cell carcinoma, scalp/neck Cervical spondylosis Hypercholesterolemia Hypertension Melanoma Esophageal adenocarcinoma (~2017) Surgical History History of hemorrhoidectomy (~1993) History of esophagogastroduodenoscopy (EGD) History of colonoscopy History of meniscectomy of right knee (~2003) History of esophagectomy (~2018) History of jejunostomy tube placement (~2018) History of incisional hernia repair (~2019) History of appendectomy History of prostatectomy (~2004) Family History Family History Son Non-Hodgkin lymphoma Father Prostate cancer Mother No problems noted. Social History Social History Household Members: Spouse Housing: Condominium Are you a primary health care / medical job titles to a significant other at home: No Do you presently have visiting nurse or other home services: No Alcohol intake: current Alcohol intake frequency: does not drink Alcohol type: beer Patient Tobacco Use Status: Former Tobacco user Years Smoked: 35 Smoked in Last 30 Days: No e-Cigarette/Vaping Use: Never Used Second Hand Smoke Exposure: No Use of substances other than those prescribed or required for medical reasons: No Advance Directives: Yes Advance Directives on File: Yes Advance Directives Date on File: 12/04/21 service: Yes Current occupational status: retired Current occupation: rt handed Physical Exam ED Vital Signs: Vital Signs - 24 hr 07/24/24 09:04 07/24/24 09:13 Temperature 98.0 F Pulse Rate 72 Respiratory Rate 16 16 Blood Pressure 146/83 H Pulse Oximetry 95 94 Oxygen Delivery Method Room Air Room Air BMI result Body Mass Index 22.1 Appearance: Alert. Oriented X3. No acute distress. From my last visit with him he has lost a considerable amount of weight Eyes: Pupils equal, round and reactive to light. ENT: Pharynx very dry MM Neck: Normal inspection. Neck supple. CVS: Normal heart rate and rhythm. Pulses normal. Respiratory: No respiratory distress. Breath sounds normal. Abdomen: Soft and mild ttp along incisions but incisions are well healing Skin: Skin warm and dry. pale skin color. Extremities: No lower extremity edema. Neuro: Oriented X 3. No motor deficit. No sensory deficit. Medical Decision Making Medical Decision Making [facility] Narrative: 78 yo male with PMH of esophageal adenocarcinoma s/p distal esophagectomy with gastric pull through in 2019 at [facility], prostate cancer, recurrence of esophageal cancer 2021 s/p chemoc follows with Dr. Brokos, multiple SBOs, GERD, HTN, neuropathy here with c/o FTT, weight loss, weakness, nausea and really only taking in minimal liquids and almost no food. At this time basic labs, EKG, CT scan, start on IV fluids and zofran. Possible SBO, anemia, FTT, JUAN, dehydration, GERD Differential Diagnosis Differential Diagnoses: The differential diagnosis associated with the presentation includes SBO, anemia, FTT, JUAN, dehydration, GERD Admission/Observation Consideration of admission/observation: Escalation of care including admission/observation considered will admit for EGD tomorrow given his symptoms Consult Healthcare Provider Management of the patient was discussed with: Hospitalist (will admit) and Watch Hairspring Assembler (Dr. Carlson states can have EGD with Powell tomorrow) Lab Data [facility] Lab Attestation statement: I reviewed the patient's lab results. 07/24/24 09:39 07/24/24 09:39 Labs: Lab Results 07/24/24 Range/Units 09:39 WBC 5.2 (4.8-10.8) X10*3/uL RBC 5.23 (4.60-5.80) X10*6/uL Hgb 14.8 (14.0-18.0) g/dl Hct 45.7 (42.0-52.0) % MCV 87.4 (80.0-98.0) fL MCH 28.3 (27.0-33.0) pg MCHC 32.4 (31.0-36.0) g/dl RDW 14.6 (11.0-16.0) % Plt Count 316 D (160-400) X10*3/uL MPV 10.4 (9.4-12.4) fL Immature Gran % (Auto) 0.2 (0.0-0.4) % Neut % (Auto) 67.9 (45-73) % Lymph % (Auto) 20.5 (20-40) % [place] % (Auto) 9.9 (2-11) % Eos % (Auto) 1.1 (0-4) % Baso % (Auto) 0.4 (0-2) % Lymph # (Auto) 1.1 L (1.2-4.9) X10*3/uL [place] # (Auto) 0.5 (0.1-1.2) X10*3/uL Eos # (Auto) 0.1 (0.0-0.4) X10*3/uL Baso # (Auto) 0.0 (0.0-0.2) X10*3/uL Abs Immat Gran (auto) 0.01 (0.00-0.03) X10*3/uL Absolute Neuts (auto) 3.6 (2.0-8.3) x10*3/uL Absolute Nucleated RBC 0.000 (0.0-0.012) X10*3/uL Nucleated RBC % (auto) 0.0 (0.0-0.2) /100WBC Sodium 140 (135-145) mmol/L Potassium 4.6 (3.3-5.1) mmol/L Chloride 105 (96-108) mmol/L Carbon Dioxide 25 (22-29) mmol/L Anion Gap 15 (12-20) BUN 9 (9-16) mg/dL Creatinine 0.91 (0.5-1.4) mg/dL Estim Creat Clear Calc 60.2 Estimated GFR > 60 Random Glucose 94 (60-115) mg/dL Calcium 9.4 (8.4-10.2) mg/dL Magnesium 2.1 (1.6-2.6) mg/dL Total Bilirubin 0.4 (0.0-1.0) mg/dL Direct Bilirubin 0.1 (0.0-0.5) mg/dL AST 33 (5-37) U/L ALT 21 (0-40) U/L Alkaline Phosphatase 97 (39-117) U/L Troponin I High Sens < 2.7 (<3.5-35.0) ng/L C-Reactive Protein 0.16 (< or = 0.50) mg/dL B-Natriuretic Peptide 16 (<100) pg/mL Total Protein 8.0 (6.5-8.0) g/dL Albumin 3.5 (3.5-5.0) g/dL Lipase 25 (8-78) U/L Influenza Type A (PCR) NEGATIVE (Negative) Influenza Type B (PCR) NEGATIVE (Negative) RSV RNA Qual (PCR) NEGATIVE (Negative) SARS-CoV-2 RNA (RT-PCR) NEGATIVE (Negative) Independent Interpretation I performed an independent interpretation of an: EKG, Plain X-Ray (normal) and CT Scan (no obstruction) Interpretation: Rate: 68 Rhythm: NSR [place]: left Normal P waves. Normal LUKE. RBBB ST T wave : inverted t waves V1, flat t wave aVF qTC: 467 prior studies: no acute ischemia The study has been interpreted contemporaneously by me. . Radiology Impression Discussion of test interpretation with radiology: I have reviewed the radiologist's reading. Independent Historian Clinical information obtained from an independent historian. History obtained from or confirmed by: EMS External Record Review External record reviewed: Inpatient record and Outpatient record Medications Administered Discontinued Medications Generic Name Dose Route Start Last Admin Trade Name Freq PRN Reason Stop Dose Admin Sodium Chloride 1,000 mls @ 999 mls/hr 07/24/24 09:25 07/24/24 11:30 Ns IV 07/24/24 10:25 Infused .Q1H1M ONE Infusion Iohexol 100 ml 07/24/24 12:09 07/24/24 12:10 Iohexol 350 Mg/Ml 100 Ml Infus..Btl IV 07/24/24 12:10 85 ml ONCE ONE Administration Ondansetron HCl 4 mg 07/24/24 09:26 07/24/24 10:12 Ondansetron Hcl 4 Mg/2 Ml Vial IVPUSH 07/24/24 09:27 4 mg ONCE ONE Administration Discharge Plan Discharge Clinical Impression: Adult failure to thrive, Nausea, Dysphagia Patient Disposition: Admitted As Inpatient Prescriptions: No Action omeprazole 40 mg Capsule,Delayed Release(Dr/Ec) 40 mg PO BID@0630,1630 gabapentin 300 mg capsule 600 mg PO BID verapamil 240 mg capsule,ext rel. pellets 24 hr 240 mg PO DAILY polyethylene glycol 3350 17 gram Powder In Packet 17 g PO DAILY Qty: 30 0RF multivitamin Tablet 1 tab PO DAILY docusate sodium 100 mg Tablet 100 mg PO BID Print Language: Swedish
--- NOTE | 2024-07-24 09:25 | ECG_ITS ---
Test Reason : CHEST PAIN Blood Pressure : / mmHG Vent. Rate : 068 BPM Atrial Rate : 068 BPM P-R Int : 158 ms QRS Dur : 126 ms QT Int : 440 ms P-R-T Axes : 047 -19 013 degrees QTc Int : 467 ms Normal sinus rhythm Right bundle branch block Minimal voltage criteria for LVH, may be normal variant ( R in aVL ) Abnormal ECG When compared with ECG of 01-JUL-2024 03:54, No significant change was found Referred By: Rebecca Alvarenga Electronically Signed By:ENIO VALENTINE
[2024-07-24 09:45] LABS: Basophils Percent Auto 0.4 % (0-2); Eosinophils Absolute Auto 0.1 X10*3/uL (0.0-0.4); Eosinophils Percent Auto 1.1 % (0-4); Hematocrit 45.7 % (42.0-52.0); Hemoglobin 14.8 g/dl (14.0-18.0); Imm Gran Abs Auto 0.01 X10*3/uL (0.00-0.03); Imm Gran Pct Auto 0.2 % (0.0-0.4); Lymphocytes Absolute Auto 1.1 X10*3/uL (1.2-4.9); Lymphocytes Percent Auto 20.5 % (20-40); MANUAL DIFF FLAG NO; Mean Corpuscular HGB Conc 32.4 g/dl (31.0-36.0); Mean Corpuscular Hemoglobin 28.3 pg (27.0-33.0); Mean Corpuscular Volume 87.4 fL (80.0-98.0); Mean Platelet Volume 10.4 fL (9.4-12.4); Monocytes Absolute Auto 0.5 X10*3/uL (0.1-1.2); Monocytes Percent Auto 9.9 % (2-11); Neutrophils Absolute Auto 3.6 x10*3/uL (2.0-8.3); Neutrophils Percent Auto 67.9 % (45-73); Platelet Count 316 X10*3/uL (160-400); Red Blood Count 5.23 X10*6/uL (4.60-5.80); Red Cell Distribution Width 14.6 % (11.0-16.0); White Blood Count 5.2 X10*3/uL (4.8-10.8)
--- OUTSIDE RECORDS SUMMARY | 2024-07-24 09:48 | XMS_ITS ---
Author Organization Matthew Hirsch DO, FACP Address [address] [place], [place] [id number] Care Team Providers Care Utility Locator Name Role Phone Matthew Hirsch Primary Care Provider REASON FOR VISIT 3 month f/u Encounters Encounter Location Date Provider Diagnosis Matthew Hirsch DO, FACP [address] [place] [id number] 07/05/2024 Matthew Hirsch PLAN OF TREATMENT Next Appt Details Provider Name:Matthew byrne, 2024 01:30:00 PM, [address] [place] [address], [phone],
--- OUTSIDE RECORDS SUMMARY | 2024-07-24 09:48 | XMS_ITS | Data Portability ---
Author Organization [place] [facility], [facility] Address [address] [address] Care Team Providers Care Utility Plant Operative Name Role Phone EDGARD MARCELINO Primary Care Provider Assessment No assessment recorded. 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, unilatera l; Note: Date Diagnosed : 11/12/2023 1:50 PM (J38.01) Not Available [facility] 02:53:42 Dysphagia 25673807 Active 2023 Dysphagia , unspecifi ed; Note: Date Diagnosed : 11/12/2023 1:50 PM (R13.10) Not Available [facility] 02:53:43 Dysphonia 40667140 Active 2023 Other voice and resonance disorders ; Note: Date Diagnosed : 11/12/2023 1:50 PM (R49.8) Not Available [facility] 02:53:43 Finding of resonance of voice 614167480 Active 2023 Other voice and resonance disorders ; Note: Date Diagnosed : 11/12/2023 1:50 PM (R49.8) Not Available [facility] 02:53:43 History of malignant neoplasm of esophagus 365492952 Active 2023 Personal history of malignant neoplasm of esophagus ; Note: Date Diagnosed : 11/12/2023 1:50 PM (Z85.01) Not Available [facility] 02:53:44 Problem Notes None recorded. Procedures Surgical History Date Name Laterality Status Provider Name and Address Organization Details Recorded Time 4 FFL_RE completed EDGARD VERDIN MD [address] [place] [address],[place] [address], [place], [address], [facility] - [facility] 03/03/2024 12:41:19 injection of vocal cords completed EDGARD VERDIN MD [address] [place] [address],[address], [address], [place] - [facility] 03/03/2024 12:39:31 Imaging Results Imaging Date Name Status LastModified by [facility] Details LastModified Time 11/03/2023 imaging/diag nostic [...] lisinopril 20 mg tablet active Medication ID: [id number] Bran d Name: lisinopril Send Method: E-Prescribe d Subs Allowed: subs OK Medicati onGenericNa me: lisinopril Not Available Not Available Not Available omeprazole 40 mg capsule,delay ed release active Medication ID: [id number] Bran d Name: omeprazole Send Method: E-Prescribe d Subs Allowed: subs OK Medicati onGenericNa me: omeprazole Not Available Not Available Not Available amitriptyline 25 mg tablet active Not Available Not Available Not Available gabapentin 300 mg capsule active Medication ID: [id number] Bran d Name: gabapentin Send Method: E-Prescribe d Subs Allowed: subs OK Medicati onGenericNa me: gabapentin Not Available Not Available Not Available verapamil ER (SR) 240 mg tablet,extend ed release active Medication ID: [id number] Bran d Name: verapamil S end Method: E-Prescribe d Subs Allowed: subs OK Medicati onGenericNa me: verapamil Not Available Not Available Not Available ondansetron 4 mg disintegratin g tablet active Not Available Not Available Not Available Vitals Date Recorded Body height Body mass index (BMI) Body weight Provider Name and Address Organization Details Last Updated DateTime 03/03/2024 172.72 cm 25.1 kg/m2 79710.74 g Guillermo Lim [facility] 03/03/2024 12:30:51 Social History None recorded. Functional Status None recorded. Mental Status None recorded. Family History Nothing Reported. Medical History No medical history recorded. Past Encounters Encounter ID Performer Location Encounter Start Date Encounter Closed Date Diagnosis/Indication Diagnosis SNOMED-CT Code Diagnosis ICD10 Code 9510 EDGARD VERDIN MD [facility] [address] [place] [address] 03/03/2024 11:34:12 03/03/2024 12:49:27 Vocal cord paralysis 215384554 J38.01 Chronic hoarseness 09611 75372 105 R49.0 Health Concerns Section Related Observation LastModified by Organization Detai ls LastModified Time None Recorded Concern Status LastModified by Organization Details LastModified Time None Recorded Advance Directives Directive None Recorded Payers Encounter Date Sequence Insurance Name Policy Number Policy Jeter Covered Member ID Jeter Member ID Guarantor Name 03/03/2024 1 [employer] - MEDICARE ADVANTAGE PLAN (MEDICARE REPLACEMENT HMO) [id number] Yoseph Orellana [id number] Yoseph Orellana
--- OUTSIDE RECORDS SUMMARY | 2024-07-24 09:49 | XMS_ITS ---
Author Organization Matthew Hirsch DO, FACP Address [address] [place], [place] [id number] Care Team Providers Care Masonry Contractor Name Role Phone Matthew Hirsch Primary Care Provider REASON FOR VISIT 1 month f/u Encounters Encounter Location Date Provider Diagnosis Matthew Hirsch DO, FACP [address] [place] [id number] 07/01/2024 Matthew Hirsch PLAN OF TREATMENT Next Appt Details Provider Name:Matthew byrne, 2024 01:30:00 PM, [address] [place] [address], [phone],
--- OUTSIDE RECORDS SUMMARY | 2024-07-24 09:49 | XMS_ITS ---
Author Organization Matthew Hirsch DO, [facility] Address [address] [place], [place] [id number] Care Team Providers Care Distillery Supervisor Name Role Phone Matthew Hirsch Primary Care Provider [phone] REASON FOR VISIT Message Encounters Encounter Location Date Provider Diagnosis Matthew Hirsch DO, FACP [address] [place] [id number] 06/07/2024 Matthew Hirsch PLAN OF TREATMENT Next Appt Details Provider Name:Matthew byrne, 2024 01:30:00 PM, [address] [place], [place], [phone],
--- OUTSIDE RECORDS SUMMARY | 2024-07-24 09:50 | XMS_ITS | Patient Health Record ---
Author Organization Matthew Hirsch DO, FACP Address [address], [place] [id number] Care Team Providers Care Taxicab Starter Name Role Phone Matthew Hirsch Primary Care Provider ALLERGIES No Known Allergies RESULTS Component Value Reference Range Notes FL barium swallow Reviewed date:07/29/2023 05:29:07 PM Interpretation:Abnormal Performing Lab: Notes/Report: [address] [address] Fluoroscopy Report Signed Patient: Yoseph Orellana MR#: [id number] : 1945 Acct:[id number] Age/Sex: 77 / M ADM Date: 07/29/23 Loc: PENNY Attending Dr: Matthew Hirsch DO Ordering Physician: Matthew Hirsch DO Date of Service: 07/29/23 Procedure(s): FL barium swallow Accession Number(s): [id number] cc: Matthew Hirsch DO EXAMINATION: XR FLUOROSCOPY [...] Quang Watson PA-C, and supervised by Dr. Acosat Dictated By: Martin Acosta MD Signed By: <Electronically signed by Martin Acosta MD in OV> 07/29/23 1611 DD/ 1145 TD/TT: Software Reverse Engineer: PET CT fusion skull to thigh Reviewed date:09/18/2023 05:16:53 PM Interpretation:Abnormal Performing Lab: Notes/Report: [address] [address] PET Report Signed Patient: Yoseph Orellana MR#: [id number] : 1945 Acct:[id number] Age/Sex: 78 / M ADM Date: 09/15/23 Loc: HO.PET Attending Dr: Isabella Brooks MD Ordering Physician: Isabella Brooks MD Date of Service: 02/06/24 Procedure(s): PET CT fusion skull to thigh Accession Number(s): [id number] cc: Isabella Brooks MD; Matthew Hirsch DO [...] in OV> 09/18/23 1257 DD/ 1030 TD/TT: Software Reverse Engineer: DAWOOD Prostate Specific Antigen Reviewed date:09/29/2023 12:25:21 PM Interpretation:Undetectable Performing Lab:[facility], [address] [place] [address] Notes/Report: Prostate Specific Antigen < 0.10 <0.05-4.0 ng/mL PSA methodology: Richard Alinity i Chemiluminescent Microparticle Immunoassay (CMIA) Complete Blood Count Auto Di ff Reviewed date:10/14/2023 04:33:51 PM Interpretation:Normal Performing Lab:[facility], [address] [place] [address] Notes/Report: White Blood Count 6.8 4.8-10.8 X10*3/uL [...] Panel Reviewed date:10/14/2023 04:34:57 PM Interpretation:Abnormal Performing Lab:[facility], [address] [place] [address] Notes/Report: Sodium 142 135-145 mmol/L Potassium 3.8 [...] Glomerular Filt Rate > 60 NOTE: For -Kittitian individuals, multiply the result by 1.210. Chronic [...] Panel Reviewed date:11/19/2023 10:35:14 AM Interpretation:Normal Performing Lab:[facility], [address] [place] [address] Notes/Report: Sodium 143 135-145 mmol/L Potassium 4.6 3.3-5.1 mmol/L Chloride 108 96-108 mmol/L Carbon Dioxide 29 22-29 mmol/L Anion Gap 11 12-20 Blood Urea Nitrogen 11 9-16 mg/dL Creatinine 1.28 0.5-1.4 mg/dL Estimated Glomerular Filt Rate 54 NOTE: For -Kittitian individuals, multiply the result by 1.210. Chronic Kidney Disease: Estimated GFR < 60 mL/min/1.73m2 Severe Kidney Disease: Estimated GFR < 15 mL/min/1.73m2 Glucose Random 89 60-115 mg/dL Calcium 9.4 8.4-10.2 mg/dL Complete Blood Count Auto Di ff Reviewed date:11/19/2023 08:53:06 AM Interpretation:Normal Performing Lab:[facility], [address] [place] [address] Notes/Report: White Blood Count 5.0 4.8-10.8 X10*3/uL [...] ff Reviewed date:01/01/2024 01:07:57 PM Interpretation:Normal Performing Lab:[facility], [address] [place] [address] Notes/Report: White Blood Count 8.3 4.8-10.8 X10*3/uL [...] INR Reviewed date:01/01/2024 12:55:22 PM Interpretation:Normal Performing Lab:[facility], [address] [place] [address] Notes/Report: Prothrombin Time 12.6 11.1-13.3 SEC INTERNATIONAL [...] Panel Reviewed date:01/01/2024 01:09:00 PM Interpretation:Normal Performing Lab:[facility], [address] [place] [address] Notes/Report: Bilirubin Total 0.5 0.0-1.0 mg/dL Bilirubin Direct 0.2 0.0-0.5 mg/dL Aspartate Amino Transferase 17 5-37 U/L Alanine Aminotransferase 11 0-40 U/L Total Protein 6.9 6.5-8.0 g/dL Albumin Level 3.7 3.5-5.0 g/dL Alkaline Phosphatase 99 39-117 U/L Basic Metabolic Panel Fastin g Reviewed date:01/01/2024 01:09:00 PM Interpretation:Normal Performing Lab:[facility], [address] [place] [address] Notes/Report: Sodium 141 135-145 mmol/L Potassium 4.2 [...] Glomerular Filt Rate > 60 NOTE: For -Kittitian individuals, multiply the result by 1.210. Chronic Kidney Disease: Estimated GFR < 60 mL/min/1.73m2 Severe Kidney Disease: Estimated GFR < 15 mL/min/1.73m2 Glucose Fasting 81 60-99 mg/dL Calcium 9.2 8.4-10.2 mg/dL Magnesium Reviewed date:01/01/2024 01:09:00 PM Interpretation:Normal Performing Lab:[facility], [address] [place] [address] Notes/Report: Magnesium 2.1 1.6-2.6 mg/dL Lipase Reviewed date:01/01/2024 01:09:00 PM Interpretation:Normal Performing Lab:[facility], [address] [place] [address] Notes/Report: Lipase 15 8-78 U/L CT chest w con Reviewed date:01/02/2024 11:16:28 AM Interpretation:Abnormal Performing Lab: Notes/Report: [facility] [address] [facility] [place] [address] CT Scan Report Signed Patient: Yoseph Orellana MR#: [id number] : 1945 Acct:[id number] Age/Sex: 78 / M ADM Date: 01/01/24 Loc: HO.ED Attending Dr: Ordering Physician: Rebecca Alvarenga DO Date of Service: 01/01/24 Procedure(s): CT chest w IV con Accession Number(s): [id number] cc: Rebecca Alvarenga DO; Matthew Hirsch DO [...] in OV> 01/01/24 1640 DD/ 1510 TD/TT: Software Reverse Engineer: CT abdomen pelvis w con Reviewed date:01/02/2024 11:17:42 AM Interpretation:Abnormal Performing Lab: Notes/Report: [address] [address] [address] Scan Report Signed Patient: Yoseph Orellana MR#: [id number] : 1945 Acct:[id number] Age/Sex: 78 / M ADM Date: 01/01/24 Loc: HO.ED Attending Dr: Ordering Physician: Rebecca Alvarenga DO Date of Service: 01/01/24 Procedure(s): CT abdomen pelvis w IV con Accession Number(s): [id number] cc: Rebecca Alvarenga DO; Matthew Hirsch DO [...] in OV> 01/01/24 1640 DD/ 1510 TD/TT: Software Reverse Engineer: Complete Blood Count Auto Di ff Reviewed date:03/19/2024 10:24:02 PM Interpretation:Abnormal Performing Lab:[facility], [address] [place] [address] Notes/Report: White Blood Count 8.5 4.8-10.8 X10*3/uL [...] Panel Reviewed date:03/19/2024 10:24:02 PM Interpretation:Normal Performing Lab:[facility], [address] [place] [address] Notes/Report: Bilirubin Total 0.3 0.0-1.0 mg/dL Bilirubin Direct 0.1 0.0-0.5 mg/dL Aspartate Amino Transferase 20 5-37 U/L Alanine Aminotransferase 14 0-40 U/L Total Protein 6.8 6.5-8.0 g/dL Albumin Level 3.8 3.5-5.0 g/dL Alkaline Phosphatase 90 39-117 U/L Basic Metabolic Panel Reviewed date:03/19/2024 10:24:02 PM Interpretation:Abnormal Performing Lab:[facility], [address] [place] [address] Notes/Report: Sodium 143 135-145 mmol/L Potassium 3.7 [...] Glomerular Filt Rate > 60 NOTE: For -Kittitian individuals, multiply the result by 1.210. Chronic Kidney Disease: Estimated GFR < 60 mL/min/1.73m2 Severe Kidney Disease: Estimated GFR < 15 mL/min/1.73m2 Glucose Random 107 60-115 mg/dL Calcium 8.8 8.4-10.2 mg/dL Magnesium Reviewed date:03/19/2024 10:24:02 PM Interpretation:Normal Performing Lab:[facility], [address] [place] [address] Notes/Report: Magnesium 2.2 1.6-2.6 mg/dL Lipase Reviewed date:03/19/2024 10:24:02 PM Interpretation:Normal Performing Lab:[facility], [address] [place] [address] Notes/Report: Lipase 28 8-78 U/L UA ClnCatch+Micro w/rflx Cul t Reviewed date:03/20/2024 02:08:31 PM Interpretation:Abnormal Performing Lab:[facility], [address] [place] [address] Notes/Report: Urine, Dia Port Color Urine Yellow Appearance Urine Clear PH 7.0 5.0-9.0 Glucose Urine UA Negative Negative mg/dL Urine Blood Negative Negative Specific [place] - Urine 1.010 1.005-1.025 Urine Protein Trace [...] date:03/21/2024 10:19:46 AM Interpretation:Abnormal Performing Lab: Notes/Report: [address] [address] [address] Scan Report Signed Patient: Yoseph Orellana MR#: [id number] : 1945 Acct:[id number] Age/Sex: 78 / M ADM Date: 03/19/24 Loc: HO.ED Attending Dr: Ordering Physician: Nina North Date of Service: 03/19/24 Procedure(s): CT abdomen pelvis wo IV con Accession Number(s): [id number] cc: Matthew Hirsch DO; Nina North EXAMINATION: [...] MD in OV> 03/19/242208 DD/ 55 TD/TT: Software Reverse Engineer: Complete Blood Count Auto Di ff Reviewed date:03/20/2024 02:08:31 PM Interpretation:Abnormal Performing Lab:[facility], [address] [place] [address] Notes/Report: White Blood Count 8.1 4.8-10.8 X10*3/uL [...] Panel Reviewed date:03/20/2024 02:08:31 PM Interpretation:Abnormal Performing Lab:[facility], [address] [place] [address] Notes/Report: Sodium 141 135-145 mmol/L Potassium 3.7 [...] Glomerular Filt Rate > 60 NOTE: For -Kittitian individuals, multiply the result by 1.210. Chronic Kidney Disease: Estimated GFR < 60 mL/min/1.73m2 Severe Kidney Disease: Estimated GFR < 15 mL/min/1.73m2 Glucose Random 90 60-115 mg/dL Calcium 9.0 8.4-10.2 mg/dL Respiratory Panel Reviewed date:05/26/2024 11:19:42 AM Interpretation:Negative Performing Lab:[facility], [address] [place] [address] Notes/Report: Adenovirus PCR Not Detected Not Detect. [...] testing should be considered. Results reported to [facility]. This test has been authorized by the [...] is performed by Multiplexed PCR, utilizing the [employer] Array. COVID-19 ID NOW (C[employer]) Reviewed date:05/26/2024 11:19:42 AM Interpretation:Negative Performing Lab:[facility], [address] [place] [address] Notes/Report: IDNOW Serial# [id number] COVID-19 Test Negative Negative COVID-19 Note See [...] with other viruses. Testing facilities within the [facility] and its territories are required to report [...] by authorized laboratories. Testing performed on the Richard ID NOW utilizing NAAT. Lactic Acid-LAB USE ONLY Reviewed date:05/25/2024 03:42:28 PM Interpretation:Normal Performing Lab:[facility], [address] [place] [address] Notes/Report: Lactic Acid-LAB USE ONLY 1.3 0.5-2.0 mmol/L CT abdomen pelvis wo con Reviewed date:05/25/2024 05:14:53 PM Interpretation:Abnormal Performing Lab: Notes/Report: [address] [address] [address] Scan Report Signed Patient: Yoseph Orellana MR#: [id number] : 1945 Acct:[id number] Age/Sex: 78 / M ADM Date: 05/25/24 Loc: HO.ED Attending Dr: Ordering Physician: José Oglesby MD Date of Service: 05/25/24 Procedure(s): CT abdomen pelvis wo IV con Accession Number(s): [id number] cc: José Oglesby MD; Matthew Hirsch DO [...] Barbara Jeter DO 05/25/2024 03:13 PM EDT RP Dictated By: Barbara Jeter Signed By: <Electronically signed by Barbara Jeter in OV> 05/25/24 1513 DD/ 1117 TD/TT: 05/25/24 1147 Software Reverse Engineer: XR chest 1V Reviewed date:05/25/2024 02:49:29 PM Interpretation:Nonacute Performing Lab: Notes/Report: [address] [address] XRay Report Signed Patient: Yoseph Orellana MR#: [id number] : 1945 Acct:[id number] Age/Sex: 78 / M ADM Date: 05/25/24 Loc: HO.ED Attending Dr: Ordering Physician: José Oglesby MD Date of Service: 05/25/24 Procedure(s): XR chest 1V Accession Number(s): [id number] cc: José Oglesby MD; Matthew Hirsch DO [...] Armando Love MD 05/25/2024 02:13 PM EDT RP Dictated By: Armando Love MD Signed By: <Electronically signed by Armando Love MD in OV> 05/25/24 1413 DD/ 1200 TD/TT: 05/25/24 1210 Software Reverse Engineer: Complete Blood Count no Diff Reviewed date:05/26/2024 11:19:42 AM Interpretation:Abnormal Performing Lab:[facility], [address] [place] [address] Notes/Report: White Blood Count 16.4 4.8-10.8 X10*3/uL [...] Panel Reviewed date:05/26/2024 11:19:42 AM Interpretation:Abnormal Performing Lab:[address] [address] Notes/Report: Sodium 142 135-145 mmol/L Potassium 4.1 [...] Glomerular Filt Rate > 60 NOTE: For -Kittitian individuals, multiply the result by 1.210. Chronic Kidney Disease: Estimated GFR < 60 mL/min/1.73m2 Severe Kidney Disease: Estimated GFR < 15 mL/min/1.73m2 Glucose Random 142 60-115 mg/dL Calcium 8.9 8.4-10.2 mg/dL Complete Blood Count no Diff Reviewed date:05/27/2024 10:50:31 AM Interpretation:Abnormal Performing Lab:[address] [address] Notes/Report: White Blood Count 9.8 4.8-10.8 X10*3/uL [...] Panel Reviewed date:05/27/2024 10:50:31 AM Interpretation:Abnormal Performing Lab:[address] [address] Notes/Report: Sodium 140 135-145 mmol/L Potassium 3.7 [...] Glomerular Filt Rate > 60 NOTE: For -Kittitian individuals, multiply the result by 1.210. Chronic Kidney Disease: Estimated GFR < 60 mL/min/1.73m2 Severe Kidney Disease: Estimated GFR < 15 mL/min/1.73m2 Glucose Random 80 60-115 mg/dL Calcium 8.6 8.4-10.2 mg/dL Complete Blood Count Auto Di ff Reviewed date:06/08/2024 11:14:54 AM Interpretation:Normal Performing Lab:[facility], [address] [place] [address] Notes/Report: White Blood Count 5.1 4.8-10.8 X10*3/uL [...] Panel Reviewed date:06/08/2024 11:14:54 AM Interpretation:Normal Performing Lab:[facility], [address] [place] [address] Notes/Report: Sodium 141 135-145 mmol/L Potassium 4.2 3.3-5.1 mmol/L Chloride 105 96-108 mmol/L Carbon Dioxide 26 22-29 mmol/L Anion Gap 14 12-20 Blood Urea Nitrogen 9 9-16 mg/dL Creatinine 1.04 0.5-1.4 mg/dL Estimated Glomerular Filt Rate > 60 NOTE: For -Kittitian individuals, multiply the result by 1.210. Chronic [...] date:07/03/2024 04:31:28 PM Interpretation:Nonacute Performing Lab: Notes/Report: [facility] [place] [address] XRay Report Signed Patient: Yoseph Orellana MR#: [id number] : 1945 Acct:[id number] Age/Sex: 78 / M ADM Date: 06/08/24 Loc: HO.HMGCX Attending Dr: Matthew Hirsch DO Ordering Physician: Matthew Hirsch DO Date of Service: 06/08/24 Procedure(s): XR chest 2V Accession Number(s): [id number] cc: Matthew Hirsch DO EXAMINATION: XR CHEST [...] by: Samuel Becerra MD 07/02/2024 08:08 PM [facility] Workstation: [employer] Dictated By: Samuel Becerra MD Signed By: <Electronically signed by Samuel Becerra MD in OV> 07/02/242007 DD/ 3 TD/TT: 06/08/24 0846 Software Reverse Engineer: SR CT abdomen pelvis wo con Reviewed date:07/01/2024 05:33:29 PM Interpretation:Abnormal Performing Lab: Notes/Report: [address] [address] [address] Scan Report Signed Patient: Yoseph Orellana MR#: [id number] : 1945 Acct:[id number] Age/Sex: 78 / M ADM Date: 07/01/24 Loc: .ED Attending Dr: Ordering Physician: Job Zabala MD Date of Service: 07/01/24 Procedure(s): CT abdomen pelvis wo IV con Accession Number(s): [id number] cc: Job Zabala MD; Matthew Hirsch DO [...] by: Tyler Lopez MD 07/01/2024 06:09 AM [facility] Dictated By: Tyler Lopez MD Signed By: <Electronically signed by Tyler Lopez MD in OV> 07/01/24 0609 DD/ 0451 TD/TT: 07/01/24 0502 Software Reverse Engineer: FL small bowel follow throug h Reviewed date:07/01/2024 05:37:15 PM Interpretation:Abnormal Performing Lab: Notes/Report: [address] [address] Fluoroscopy Report Signed Patient: Yoseph Orellana MR#: [id number] : 1945 Acct:[id number] Age/Sex: 78 / M ADM Date: 07/01/24 Loc: .S3 361-[address]: Gamaliel Gilbert MD Ordering Physician: Leonel Alberto MD Date of Service: 07/01/24 Procedure(s): FL small bowel follow through Accession Number(s): [id number] cc: Matthew Hirsch DO; Leonel Alberto MD EXAMINATION: FL SMALL BOWEL SERIES CLINICAL INFORMATION: Rule out complete SBO COMPARISON: None available. Correlation made with CT abdomen and pelvis dated same day, as well as 05/25/2024, and 03/19/2024. TECHNIQUE: Following a web ui developer image of the abdomen, contrast was administered orally, and interval abdominal radiographs were performed to assess for contrast progression through the small bowel. Following contrast transit through the small bowel, multiple overhead radiographs of the abdomen were obtained. FINDINGS: Tower Crane Operator image of the abdomen demonstrates loops of [...] by: Martin Acosta MD 07/01/2024 05:20 PM [facility] Dictated By: Martin Acosta MD Signed By: <Electronically signed by Martin Acosta MD in OV> 07/01/24 1720 DD/ 1420 TD/TT: 07/01/24 1645 Software Reverse Engineer: XR chest 2V Reviewed date:07/01/2024 05:38:20 PM Interpretation:Abnormal Performing Lab: Notes/Report: [address] [address] XRay Report Signed Patient: Yoseph Orellana MR#: [id number] : 1945 Acct:[id number] Age/Sex: 78 / M ADM Date: 07/01/24 Loc: .S3 361-[address]: Gamaliel Gilbert MD Ordering Physician: Catrina Reese Date of Service: 07/01/24 Procedure(s): XR chest 2V Accession Number(s): [id number] cc: Catrina Reese; Matthew Hirsch DO EXAMINATION: [...] by: Elroy Mckinnon MD 07/01/2024 05:28 PM [facility] Dictated By: Elroy Mckinnon MD Signed By: <Electronically signed by Elroy Mckinnon MD in OV> 07/01/24 1728 DD/ 1400 TD/TT: 07/01/24 1409 Software Reverse Engineer: KWABENA Kiran Lav - Possible Hematolo gy Reviewed date:07/03/2024 04:36:09 PM Interpretation:Hold Performing Lab:[facility], [address] [place] [address] Notes/Report: Hold Lav - Possible Hematology SEE NOTE Specimen will be held untested for 8 hours. Call Hematology if testing is desired. Basic Metabolic Panel Reviewed date:07/03/2024 04:35:26 PM Interpretation:Abnormal Performing Lab:[address] [address] Notes/Report: Sodium 142 135-145 mmol/L Potassium 4.3 [...] Magnesium Reviewed date:07/03/2024 04:35:26 PM Interpretation:Normal Performing Lab:[address] [address] Notes/Report: Magnesium 2.5 1.6-2.6 mg/dL UA ClnCatch+Micro w/rflx Cul t Reviewed date:07/03/2024 04:35:26 PM Interpretation:Abnormal Performing Lab:[address] [address] Notes/Report: [id number] Urine, Dia Port Color Urine Yellow Appearance Urine Clear PH 5.0 5.0-9.0 Glucose Urine UA Negative Negative mg/dL Urine Blood Moderate (2+) Negative Specific [place] - Urine 1.010 1.005-1.025 Urine Protein Negative Neg-Trace mg/dL Urine Ketones Negative Negative mg/dL Nitrite Urine Negative Negative Leukocyte Esterase Urine Negative Negative RBC Urine 6-10 0-2 /HPF WBC Urine 0-5 0-5 /HPF Squamous Epithelial Cell Urine 0-2 0-2 /HPF Bacteria Urine None Seen None Seen Hyaline Casts Urine 0-2 0-2 /LPF SARS-CoV2/FLU/RSV Reviewed date:07/03/2024 04:35:26 PM Interpretation:Negative Performing Lab:[address] [address] Notes/Report: Influenza A PCR NEGATIVE Negative Influenza [...] by authorized laboratories. Testing performed on the [employer] GeneXpert utilizing real-time RT-PCR. All SARS CoV2 and positive influenza A/B results are reported to [facility]. XR chest 1V Reviewed date:07/03/2024 04:38:23 PM Interpretation:Abnormal Performing Lab: Notes/Report: [address] [address] XRay Report Signed Patient: Yoseph Orellana MR#: [id number] : 1945 Acct:[id number] Age/Sex: 78 / M ADM Date: 07/01/24 Loc: [facility] 479-[address]: Gamaliel Gilbert MD Ordering Physician: Katie Zavala PA-C Date of Service: 07/02/24 Procedure(s): XR chest 1V Accession Number(s): [id number] cc: Matthew Hirsch DO; Katie Zavala PA-C [...] by: Samuel Becerra MD 07/02/2024 08:17 PM [facility] Workstation: [id number] Dictated By: Samuel Becerra MD Signed By: <Electronically signed by Samuel Becerra MD in OV> 07/02/242016 DD/ 1400 TD/TT: 07/02/24 1417 Software Reverse Engineer: SR Kiran Lav - Possible Hematolo gy Reviewed date:07/03/2024 04:35:48 PM Interpretation:Hold Performing Lab:[facility], [address] [place] [address] Notes/Report: Hold Lav - Possible Hematology SEE NOTE Specimen will be held untested for 8 hours. Call Hematology if testing is desired. Basic Metabolic Panel Reviewed date:07/03/2024 04:35:26 PM Interpretation:Abnormal Performing Lab:[facility], [address] [place] [address] Notes/Report: Sodium 142 135-145 mmol/L Potassium 4.3 [...] Diff Reviewed date:07/04/2024 11:17:53 AM Interpretation:Abnormal Performing Lab:[facility], [address] [place] [address] Notes/Report: White Blood Count 15.9 4.8-10.8 X10*3/uL [...] Panel Reviewed date:07/04/2024 11:17:53 AM Interpretation:Abnormal Performing Lab:[address] [address] Notes/Report: Sodium 141 135-145 mmol/L Potassium 3.9 [...] Peptide Reviewed date:07/04/2024 11:17:53 AM Interpretation:Normal Performing Lab:[address] [address] Notes/Report: B Type Natriuretic Peptide 54 <100 pg/mL For those patients who are being treated with Natrecor (nesiritide, recombinant BNP), BNP testing should be performed at least two hours post treatment in order to ensure that only endogenous levels of BNP are detected. Complete Blood Count no Diff Reviewed date:07/05/2024 09:24:00 AM Interpretation:Abnormal Performing Lab:[address] [address] Notes/Report: White Blood Count 12.9 4.8-10.8 X10*3/uL [...] Panel Reviewed date:07/05/2024 09:24:00 AM Interpretation:Abnormal Performing Lab:[facility], [address] [place] [address] Notes/Report: Sodium 144 135-145 mmol/L Potassium 3.8 [...] date:07/06/2024 04:45:28 PM Interpretation:Abnormal Performing Lab: Notes/Report: [address] [address] XRay Report Signed Patient: Yoseph Orellana MR#: [id number] : 1945 Acct:[id number] Age/Sex: 78 / M ADM Date: 07/01/24 Loc: [facility] 479-[address]: Gamaliel Gilbert MD Ordering Physician: Gamaliel Gilbert MD Date of Service: 07/06/24 Procedure(s): XR chest 1V Accession Number(s): [id number] cc: Gamaliel Gilbert MD; Matthew Hirsch DO [...] by: Martin Acosta MD 07/06/2024 04:32 PM [facility] Dictated By: Martin Acosta MD Signed By: <Electronically signed by Martin Acosta MD in OV> 07/06/24 1632 DD/ 1232 TD/TT: 07/06/24 1241 Software Reverse Engineer: Qiana Tan - Possible Hematolo gy Reviewed date:07/08/2024 11:01:57 AM Interpretation:Hold Performing Lab:[facility], [address] [place] [address] Notes/Report: Hold Lav - Possible Hematology SEE NOTE Specimen will be held untested for 8 hours. Call Hematology if testing is desired. Basic Metabolic Panel Reviewed date:07/08/2024 11:01:57 AM Interpretation:Abnormal Performing Lab:[facility], [address] [place] [address] Notes/Report: Sodium 146 135-145 mmol/L Potassium 3.5 [...] Phosphorus Reviewed date:07/08/2024 11:01:57 AM Interpretation:Normal Performing Lab:[facility], [address] [place] [address] Notes/Report: Phosphorus 3.0 2.7-4.5 mg/dL Magnesium Reviewed date:07/08/2024 11:01:57 AM Interpretation:Normal Performing Lab:[facility], [address] [place] [address] Notes/Report: Magnesium 2.2 1.6-2.6 mg/dL Basic Metabolic Panel Reviewed date:07/08/2024 11:01:57 AM Interpretation:Abnormal Performing Lab:[facility], [address] [place] [address] Notes/Report: Sodium 142 135-145 mmol/L Potassium 3.1 [...] Phosphorus Reviewed date:07/08/2024 11:01:57 AM Interpretation:Normal Performing Lab:[facility], [address] [place] [address] Notes/Report: Phosphorus 3.8 2.7-4.5 mg/dL Magnesium Reviewed date:07/08/2024 11:01:57 AM Interpretation:Normal Performing Lab:[facility], [address] [place] [address] Notes/Report: Magnesium 2.2 1.6-2.6 mg/dL Albumin Level Reviewed date:07/08/2024 11:01:57 AM Interpretation:Abnormal Performing Lab:[facility], [address] [place] [address] Notes/Report: Albumin Level 2.3 3.5-5.0 g/dL Complete Blood Count no Diff Reviewed date:07/10/2024 12:04:13 PM Interpretation:Abnormal Performing Lab:[facility], [address] [place] [address] Notes/Report: White Blood Count 9.5 4.8-10.8 X10*3/uL [...] Panel Reviewed date:07/09/2024 01:18:55 PM Interpretation:Abnormal Performing Lab:[facility], [address] [place] [address] Notes/Report: Sodium 137 135-145 mmol/L Potassium 3.2 [...] Phosphorus Reviewed date:07/09/2024 01:18:55 PM Interpretation:Normal Performing Lab:[facility], [address] [place] [address] Notes/Report: Phosphorus 3.5 2.7-4.5 mg/dL Magnesium Reviewed date:07/09/2024 01:18:55 PM Interpretation:Normal Performing Lab:[address] [address] Notes/Report: Magnesium 2.1 1.6-2.6 mg/dL B Type Natriuretic Peptide Reviewed date:07/10/2024 12:04:13 PM Interpretation:Abnormal Performing Lab:[address] [address] Notes/Report: B Type Natriuretic Peptide 143 <100 pg/mL For those patients who are being treated with Natrecor (nesiritide, recombinant BNP), BNP testing should be performed at least two hours post treatment in order to ensure that only endogenous levels of BNP are detected. Albumin Level Reviewed date:07/09/2024 01:18:55 PM Interpretation:Abnormal Performing Lab:[address] [address] Notes/Report: Albumin Level 2.3 3.5-5.0 g/dL Triglycerides Reviewed date:07/09/2024 01:18:55 PM Interpretation:Normal Performing Lab:[address] [address] Notes/Report: Triglycerides 105 <150 mg/dL Desirable Triglyceride: less than 150 mg/dL Borderline High Triglyceride 150-199 mg/dL High Triglyceride: 200-499 mg/dL Very High Triglyceride: greater than or equal to 5OO mg/dL XR chest 1V Reviewed date:07/09/2024 01:19:45 PM Interpretation:Abnormal Performing Lab: Notes/Report: [address] [address] XRay Report Signed Patient: Yoseph Orellana MR#: [id number] : 1945 Acct:[id number] Age/Sex: 78 / M ADM Date: 07/01/24 Loc: HO.S3 354-[address]: Noris HUBBARD Ordering Physician: Noris Vora Date of Service: 07/09/24 Procedure(s): XR chest 1V Accession Number(s): [id number] cc: Noris Vora; Matthew Hirsch DO EXAMINATION: [...] by: Samuel Becerra MD 07/09/2024 11:26 AM EST Dictated By: Samuel Becerra MD Signed By: <Electronically signed by Samuel Becerra MD in OV> 07/09/24 1126 DD/ 1100 TD/TT: 07/09/24 1109 Software Reverse Engineer: Basic Metabolic Panel Reviewed date:07/10/2024 12:04:13 PM Interpretation:Abnormal Performing Lab:[facility], [address] [place] [address] Notes/Report: Sodium 138 135-145 mmol/L Potassium 4.2 [...] Phosphorus Reviewed date:07/10/2024 12:04:13 PM Interpretation:Normal Performing Lab:[facility], [address] [place] [address] Notes/Report: Phosphorus 3.5 2.7-4.5 mg/dL Magnesium Reviewed date:07/10/2024 12:04:13 PM Interpretation:Normal Performing Lab:[facility], [address] [place] [address] Notes/Report: Magnesium 2.2 1.6-2.6 mg/dL Albumin Level Reviewed date:07/10/2024 12:04:13 PM Interpretation:Abnormal Performing Lab:[facility], [address] [place] [address] Notes/Report: Albumin Level 2.3 3.5-5.0 g/dL Basic Metabolic Panel Reviewed date:07/11/2024 08:52:50 AM Interpretation:Normal Performing Lab:[facility], [address] [place] [address] Notes/Report: Sodium 137 135-145 mmol/L Potassium 4.9 [...] Phosphorus Reviewed date:07/11/2024 08:52:50 AM Interpretation:Normal Performing Lab:[facility], [address] [place] [address] Notes/Report: Phosphorus 4.0 2.7-4.5 mg/dL Magnesium Reviewed date:07/11/2024 08:52:50 AM Interpretation:Normal Performing Lab:[facility], [address] [place] [address] Notes/Report: Magnesium 2.1 1.6-2.6 mg/dL Albumin Level Reviewed date:07/11/2024 08:53:01 AM Interpretation:Abnormal Performing Lab:[facility], [address] [place] [address] Notes/Report: Albumin Level 2.5 3.5-5.0 g/dL Hold Lav - Possible Hematolo gy Reviewed date:07/12/2024 09:18:48 AM Interpretation:Hold Performing Lab:[facility], [address] [place] [address] Notes/Report: Hold Lav - Possible Hematology SEE NOTE Specimen will be held untested for 8 hours. Call Hematology if testing is desired. Basic Metabolic Panel Reviewed date:07/12/2024 09:18:48 AM Interpretation:Normal Performing Lab:[facility], [address] [place] [address] Notes/Report: Unable to obtain KALHOTP Sodium 136 [...] Phosphorus Reviewed date:07/12/2024 09:18:48 AM Interpretation:Abnormal Performing Lab:[facility], [address] [place] [address] Notes/Report: Unable to obtain KALHOTP Phosphorus 4.6 2.7-4.5 mg/dL Magnesium Reviewed date:07/12/2024 09:18:48 AM Interpretation:Normal Performing Lab:[facility], [address] [place] [address] Notes/Report: Unable to obtain KALHOTP Magnesium 2.2 1.6-2.6 mg/dL Albumin Level Reviewed date:07/12/2024 09:18:48 AM Interpretation:Abnormal Performing Lab:[facility], [address] [place] [address] Notes/Report: Unable to obtain KALHOTP Albumin Level 2.6 3.5-5.0 g/dL Basic Metabolic Panel Reviewed date:07/13/2024 10:30:27 AM Interpretation:Normal Performing Lab:[address] [address] Notes/Report: Sodium 138 135-145 mmol/L Potassium 4.4 [...] Phosphorus Reviewed date:07/13/2024 10:30:27 AM Interpretation:Normal Performing Lab:[facility], [address] [place] [address] Notes/Report: Phosphorus 4.3 2.7-4.5 mg/dL Magnesium Reviewed date:07/13/2024 10:30:27 AM Interpretation:Normal Performing Lab:[address] [address] Notes/Report: Magnesium 2.1 1.6-2.6 mg/dL Albumin Level Reviewed date:07/13/2024 10:30:27 AM Interpretation:Abnormal Performing Lab:[facility], [address] [place] [address] Notes/Report: Albumin Level 2.6 3.5-5.0 g/dL REASON FOR REFERRAL Reason Esophageal dysphagia Diagnosis 1 Esophageal dysphagia (R13.10) Referral Organization Matthew Mireles FACP Referring Provider First Name Matthew Referring Provider Last Name Joycelyn [facility] Referred Provider Matthew Powell Referred Provider [...] Provider Last Name Joycelyn Referring Provider [facility] edicine Referred Provider Estiven Baird Referred Provider [...] Referring Provider First Name Matthew Referring Provider Geo Name Joycelyn [facility] Referred Provider Specialty [...] Problem Essential hypertensi on (I10) Active confirmed 47285938 Problem Erectile dysfunction , unspecified erectile dysfunction type (N52.9) Active confirmed 246196839 Problem Neuropathy (G62.9) Active confirmed 386 337788 Problem History of prostate cancer (Z85.46) Active confirmed 055069871 Problem Incisional hernia, without obstruction or gangrene (K43.2) Active confirmed 098195102 Problem Hypercholesterolemia (E78.00) Active confirmed 51204277 Problem Esophageal dysphagia (R13.10) Active confirmed 16062326 Problem Allergic rhinitis, unspecified seasonality, unspecified trigger (J30.9) Active confirmed 24626920 Problem Esophageal carcinoma (C15.9) Active confirmed 154070647 Problem Pressure injury of sacral region, stage 1 (L89.151) Active confirmed 625745696 Problem SBO (small bowel obstruction) (K56.609) Active confirmed 343106691 Problem Vocal cord paralysis (J38.00) Active confirmed 004739155 VITAL SIGNS Blood pressure diastolic 58 mm Hg 04/05/2024 Height 64.75 in 04/05/2024 Blood pressure systolic 102 mm Hg 04/05/2024 Weight 164 lbs 04/05/2024 BMI 27.50 kg/m2 04/05/2024 Encounters Encounter Location Date Provider Diagnosis Matthew Hirsch DO, [address] [id number] 01/19/2024 Matthew Hirsch Esophageal dysphagia R13.10 ; Essential hypertension I10 ; Esophageal carcinoma C15.9 and Allergic rhinitis, unspecified seasonality, unspecified trigger J30.9 Matthew Hirsch DO, [address] [id number] 11/17/2023 Matthew Hirsch Esophageal dysphagia R13.10 ; Vocal cord paralysis J38.00 ; Essential hypertension I10 ; Allergic rhinitis, unspecified seasonality, unspecified trigger J30.9 ; SBO (small bowel obstruction) K56.609 ; Erectile dysfunction, unspecified erectile dysfunction type N52.9 and Esophageal carcinoma C15.9 Matthew Hirsch DO, [address] [id number] 04/20/2024 Matthew Hirsch DO, [address] [id number] 07/05/2024 Matthew Hirsch DO, [address] [id number] 04/05/2024 Matthew Hirsch Essential hypertension I10 ; SBO (small bowel obstruction) K56.609 ; Neuropathy G62.9 ; Esophageal dysphagia R13.10 and Allergic rhinitis, unspecified seasonality, unspecified trigger J30.9 Matthew Hirsch DO, [address] [id number] 08/11/2023 Matthew Hirsch DO, [address] [id number] 09/10/2023 Matthew Hirsch DO, [address] [id number] 10/09/2023 Matthew Hirsch DO, [address] [id number] 10/26/2023 Matthew Hirsch Esophageal carcinoma C15.9 Matthew Hirsch DO, [address] [id number] 01/18/2024 Matthew Hirsch Esophageal dysphagia R13.10 Matthew Hirsch DO, [address] [id number] 01/20/2024 Matthew Hirsch DO, [address] [id number] 01/22/2024 Matthew Hirsch DO, [address] [id number] 02/01/2024 Matthew Hirsch DO, [address] [id number] 02/22/2024 Matthew Hirsch Esophageal carcinoma C15.9 Matthew Hirsch DO, [address] [id number] 04/12/2024 Matthew Hirsch DO, [address] [id number] 04/25/2024 Matthew Hirsch DO, [address] [id number] 05/25/2024 Matthew Hirsch DO, [address] [id number] 06/06/2024 Matthew Hirsch Neuropathy G62.9 Matthew Hirsch DO, [address] [id number] 06/07/2024 Matthew Castro Ketty Joycelyn DO, [facility] [address] [place], [place] [id number] 06/03/2024 Matthew Hirsch Aspiration pneumonia , unspecified aspiration pneumonia type, unspecified laterality, unspecified part of lung J69.0 ; Esophageal dysphagia R13.10 ; SBO (small bowel obstruction) K56.609 and Neuropathy G62.9 Matthew Hirsch DO, [facility] [address] [place], [place] [id number] 07/01/2024 Matthew Hirsch ASSESSMENTS Encounter Date Diagnosis [...] Details Provider Name:Matthew byrne, 2024 01:30:00 PM, [address] [place] [address], [id number], Insurance Providers Payer Name Payer Address Payer Phone Subscriber Number Group Number Insured Name Patient Relationship to Insured Coverage Start Date Coverage End Date [employer]- MEDICARE [address] [place] [phone] [id number] Yoseph Orellana Self - patient is the insured 1 [...]
--- OUTSIDE RECORDS SUMMARY | 2024-07-24 09:50 | XMS_ITS ---
Author Organization [facility] Address [address] [place] [address] Care Team Providers Care Vineyard Tender Name Role Phone Matthew Hirsch DO Primary Care Provider Unavail able Matthew Powell Unavailable [phone] REASON FOR VISIT requesting soon appt pt with dysphagia/hx of esophageal ca Encounters Encounter Location Date Provider Diagnosis [facility] [address] [place] [address] 08/12/2023 Matthew Powell PLAN OF TREATMENT No Information
--- OUTSIDE RECORDS SUMMARY | 2024-07-24 09:50 | XMS_ITS ---
Author Organization [facility] Address [address] [place] [address] Care Team Providers Care Library Circulation Technician Name Role Phone Matthew Hirsch DO Primary Care Provider Unavail able Matthew Powell Unavailable [phone] ALLERGIES No Known Allergies REASON FOR VISIT [...] Code Notes Problem Hoarseness (R49.0) Active confirmed 23927306 Problem Pharyngeal dysphagia (R13.13) Active confirmed 80282762944140 Problem Chronic cough (R05.3) Active confirmed 31488370 VITAL SIGNS BMI 25.09 kg/m2 08/13/2023 Blood pressure systolic 00 mm Hg 08/13/19 24 Blood pressure diastolic 00 mm Hg 024 Height 68 in 08/13/2023 Temperature 97.7 degrees Fahrenheit 08/13/19 24 Weight 165 lbs 08/13/2023 Encounters Encounter Location Date Provider Diagnosis [facility] [address] [place] [address] 08/13/2023 Matthew Powell Hoarseness R49.0 ; Pharyngeal [...]
--- OUTSIDE RECORDS SUMMARY | 2024-07-24 09:50 | XMS_ITS | Patient Health Record ---
Author Organization [facility] Address [address] [place] [address] Care Team Providers Care Retention Manager Name Role Phone Matthew Hirsch DO Primary Care Provider Unavail able Matthew Powell Unavailable [phone] ALLERGIES No Known Allergies RESULTS Component Value Reference Range Notes FL barium swallow modified Reviewed date:10/27/2023 10:59:30 PM Interpretation: Performing Lab: Notes/Report: [address] [address] Fluoroscopy Report Signed Patient: Fuad Orellana MR#: [id number] : 1945 Acct:[id number] Age/Sex: 78 / M ADM Date: 09/09/23 Loc: P[facility] Attending Dr: Matthew Powell MD Ordering Physician: Matthew Powell Date of Service: 09/09/23 Procedure(s): FL barium swallow modified Accession Number(s): [id number] cc: Matthew Powell EXAMINATION: Modified Barium Swallows [...] in OV> 10/05/23 1124 DD/ 1507 TD/TT: Technical Marketing Consultant: REASON FOR REFERRAL No Information MEDICATIONS Medication [...] Notes Problem Esophageal dysphagia (R13.10) Active confirmed 48159856 Problem Gastroesophageal reflux disease, esophagitis presence not specified (K21.9) Active confirmed 520370827 Problem Abnormal upper gastrointestinal barium series (R93.3) Active confirmed 267660072 Problem 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) Active confirmed 666475937 Problem History of esophageal cancer (Z85.01) Active confirmed 746431400 Problem Small bowel obstruction (K56.609) Active confirmed 886126169 Problem Constipation, unspecified constipation type (K59.00) Active confirmed 40122520 Problem Dysphagia (R13.10) Active confirmed Dys phagia (30384722) Problem Personal history of malignant neoplasm of esophagus (Z85.01) Active confirmed History of malignant neoplasm of esophagus (356057964) Problem Hoarseness (R49.0) Active confirmed 502 78447 Problem Pharyngeal dysphagia (R13.13) Active confirmed 87095215265193 Problem Chronic cough (R05.3) Active confirmed 25916270 VITAL SIGNS Temperature 97.7 degrees Fahrenheit 08/13/2023 Blood pressure diastolic 00 mm Hg 08/13/2023 Height 68 in 08/13/2023 Blood pressure systolic 00 mm Hg 08/13/2023 Weight 165 lbs 08/13/2023 BMI 25.09 kg/m2 08/13/2023 Encounters Encounter Location Date Provider Diagnosis [facility] [address] [place] [address] 08/13/2023 Matthew Powell Hoarseness R49.0 ; Pharyngeal dysphagia R13.13 ; History of esophageal cancer Z85.01 and Chronic cough R05.3 [facility] [address] [place] [address] 08/12/2023 Matthew Powell ASSESSMENTS Encounter Date Diagnosis [...] Insured Coverage Start Date Coverage End Date [facility] [address] [facility] [place], [place] [phone] [id number] NORMANDI N, FUAD Self - patient is the insured MEDICAL (GENERAL) HISTORY Medical History History ICD Code Denies NM,DM,CVA,Lung disease,renal dise ase Prostate cancer--surgery as below HTN Hyperlipidemia Negative screening colonoscopies in 1998 and in 2009 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 Brooks[place] [facility] [place] SBO 02/2020--treated with NG tube--normal SB [...]
[2024-07-24 10:06] LABS: B Type Natriuretic Peptide 16 pg/mL (<100)
[2024-07-24 10:08] LABS: Troponin-I High Sensitivity < 2.7 ng/L (<3.5-35.0)
[2024-07-24] MEDS: ondansetron HCL 4 MG/2 ML VIAL IVPUSH ×2 (10:12→16:27)
[2024-07-24] MEDS: 0.9 % Sodium Chloride 1,000 ML 999 ML IV (10:12)
[2024-07-24 10:22] LABS: Alanine Aminotransferase 21 U/L (0-40); Albumin Level 3.5 g/dL (3.5-5.0); Alkaline Phosphatase 97 U/L (39-117); Anion Gap 15 (12-20); Aspartate Amino Transferase 33 U/L (5-37); Bilirubin Direct 0.1 mg/dL (0.0-0.5); Bilirubin Total 0.4 mg/dL (0.0-1.0); Blood Urea Nitrogen 9 mg/dL (9-16); C Reactive Protein 0.16 mg/dL (< or = 0.50); Calcium 9.4 mg/dL (8.4-10.2); Carbon Dioxide 25 mmol/L (22-29); Chloride 105 mmol/L (96-108); Creatinine Clr Calc Pharmacy 60.2; Estimated Glomerular Filt Rate > 60; Glucose Random 94 mg/dL (60-115); Lipase 25 U/L (8-78); Magnesium 2.1 mg/dL (1.6-2.6); Potassium 4.6 mmol/L (3.3-5.1); Sodium 140 mmol/L (135-145)
[2024-07-24 10:26] LABS: Influenza A PCR NEGATIVE (Negative); Influenza B PCR NEGATIVE (Negative); Resp Syncy Virus RNA Qual PCR NEGATIVE (Negative); SARS COV2 PCR INHOUSE NEGATIVE (Negative)
--- NOTE | 2024-07-24 10:26 | PC.NURSE ---
Pt is alert and oriented. Reports upper abd pain mainly to incision however no sx of infection noted. +bowel sounds x 4 quads, pt denies vomiting but reports nausea. Normal bowl movements. Skin pwd. Right chest port accessed and zofran given, NS infusing
[2024-07-24] MEDS: iohexoL 350 MG/ML 100 ML INFUS..BTL IV (12:10)
[2024-07-24 15:08] VITALS: BP 174/95; PULSE 87; RESP 18; TEMP 36.4; O2SAT 94
--- NOTE | 2024-07-24 15:23 | P.HPHOSP_ITS ---
History of Present Illness Date of Service: 07/24/24 Attending physician on admission: Staci Whipple Chief Complaint: Nausea This is an 78 year old male with h/o esophageal adenocarcinoma s/p distal esophagectomy with gastric pull-through and recent admission for small-bowel obstruction status post exploratory laparotomy with extensive lysis of adhesions discharged home 07/13 who returns to the emergency department with ongoing nausea and limited oral intake. Since discharge he reports he has not been doing well. Has hasn't been able to tolerate much oral intake. He has been able to eat a few bites of food but then becomes full and nauseated. He has not had abdominal pain (outside bernadette-incisional tenderness from surgery) and has not had any vomiting. He has chronic globus sensation. He has been able to tolerate some liquids. Because of his decreased p.o. intake he has been losing weight. In the emergency department his lab work was unremarkable. CT scan of the abdomen pelvis showed no evidence for bowel obstruction or acute inflammatory changes. He will be admitted to the hospital for further management of decreased oral intake, weight loss, failure to thrive. 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 Surgical History History of hemorrhoidectomy (~1993) History of esophagogastroduodenoscopy (EGD) History of colonoscopy History of meniscectomy of right knee (~2003) History of esophagectomy (~2018) History of jejunostomy tube placement (~2018) History of incisional hernia repair (~2019) History of appendectomy History of prostatectomy (~2004) Social History Household Members: [facility] Are you a primary health careers instructor to a significant other at home: No Do you presently have visiting nurse or other home services: No Alcohol intake: current Alcohol intake frequency: does not drink Alcohol type: beer Patient Tobacco Use Status: Former Tobacco user Years Smoked: 35 Smoked in Last 30 Days: No e-Cigarette/Vaping Use: Never Used Second Hand Smoke Exposure: No Use of substances other than those prescribed or required for medical reasons: No Advance Directives: Yes Advance Directives on File: Yes Advance Directives Date on File: 12/04/21 service: Yes Current occupational status: retired Current occupation: rt handed Meds Allergies Allergy/AdvReac Type Severity Reaction Status Date / Time No Known Allergies Allergy Verified 07/24/24 09:12 [No Known Allergies*] Active Medications: Current Medications Acetaminophen (Acetaminophen 325 Mg Tablet) 650 mg PO Q6H PRN PRN Reason: Pain, Mild (Pain Scale 1-3), fever or headache Calcium Carbonate (Calcium Carbonate 750 Mg Tab.Chew) 750 mg PO Q4H PRN PRN Reason: Heartburn Enoxaparin Sodium (Enoxaparin Sodium 40 Mg/0.4 Ml Syringe) 40 mg SUBCUT Q24H [facility] Melatonin (Melatonin 3 Mg Tablet) 6 mg PO BEDTIME PRN PRN Reason: Insomnia Ondansetron HCl (Ondansetron Hcl 4 Mg/2 Ml Vial) 4 mg IVPUSH Q8H PRN PRN Reason: Nausea and Vomiting Polyethylene Glycol (Polyethylene Glycol 3350 17 Gm Powd.Pack) 17 gm PO DAILY PRN PRN Reason: Constipation Sodium Chloride (0.9 % Sodium Chloride Flush 3 Ml Syringe) 3 ml IVFLUSH QSHIFT [facility] Home Medications ?Medication ?Instructions ?Recorded ?Confirmed ?Last Taken ?Type verapamil 240 mg 24 hr 240 mg PO DAILY 11/27/21 07/19/24 06/30/24 History capsule,extended release omeprazole 40 mg capsule,delayed 40 mg PO BID@0630,1630 06/05/23 07/19/24 06/30/24 History release gabapentin 300 mg capsule 600 mg PO BID 11/18/23 07/19/24 06/30/24 History docusate sodium 100 mg tablet 100 mg PO BID 05/25/24 07/19/24 06/30/24 History Physical Exam 2 Vital Signs and Narrative: Vital Signs: Last Vital Signs Temp 97.6 F 07/24/24 15:08 Pulse 87 07/24/24 15:08 Resp 18 07/24/24 15:08 BP 174/95 H 07/24/24 15:08 Pulse Ox 94 07/24/24 15:08 O2 Del Method Room Air 07/24/24 15:08 BMI result Body Mass Index 22.1 Const: General: cooperative, comfortable, no acute distress, alert and awake Nutritional Appearance: average body habitus Orientation/consciousness: p atient oriented x3 Resp: Effort & Inspection: normal respiratory effort, able to speak in complete sentences, no respiratory distress and no use of accessory muscles Cardio: Rate: regular rate GI: Other: abdominal incision healing well, no erythema Inspection: No distended Palpation (GI): Soft to palpation and nontender Neuro: General: patient oriented x3, moves all extremities and CN's II-XI intact bilaterally Extrem: General: Yes no pedal edema Results Labs 07/24/24 09:39 07/24/24 09:39 Labs: Laboratory Results - last 24 hr 07/24/24 09:39 MCV 87.4 MCH 28.3 MCHC 32.4 RDW 14.6 Plt Count 316 D MPV 10.4 Immature Gran % (Auto) 0.2 Neut % (Auto) 67.9 Lymph % (Auto) 20.5 Cameron % (Auto) 9.9 Eos % (Auto) 1.1 Baso % (Auto) 0.4 Lymph # (Auto) 1.1 L Cameron # (Auto) 0.5 Eos # (Auto) 0.1 Baso # (Auto) 0.0 Abs Immat Gran (auto) 0.01 Absolute Neuts (auto) 3.6 Absolute Nucleated RBC 0.000 Nucleated RBC % (auto) 0.0 Anion Gap 15 Estim Creat Clear Calc 60.2 Estimated GFR > 60 Random Glucose 94 Calcium 9.4 Magnesium 2.1 Total Bilirubin 0.4 Direct Bilirubin 0.1 AST 33 ALT 21 Alkaline Phosphatase 97 Troponin I High Sens < 2.7 C-Reactive Protein 0.16 B-Natriuretic Peptide 16 Total Protein 8.0 Albumin 3.5 Lipase 25 Influenza Type A (PCR) NEGATIVE Influenza Type B (PCR) NEGATIVE RSV RNA Qual (PCR) NEGATIVE SARS-CoV-2 RNA (RT-PCR) NEGATIVE Imaging Radiologist's Impressions: Impressions Chest X-Ray 07/24/24 10:12 IMPRESSION: As above. Electronically signed by: Tejinder Gamez MD 07/24/2024 12:18 PM EST RP Abdomen/Pelvis CT 07/24/24 11:38 IMPRESSION: No evidence for any bowel obstruction or acute inflammatory changes. No specific findings to explain patient's symptoms. Fleischner guidelines were followed. Electronically signed by: Tejinder Gamez MD 07/24/2024 01:54 PM EST RP Assessment and Plan (1) Adult failure to thrive: Status: Acute (2) Nausea: Status: Acute Plan This is an 78-year-old male with history of esophageal adenocarcinoma s/p distal esophagectomy with gastric pull-through with a recurrence in 2021 status post chemotherapy and radiation, neuropathy, hypertension, SBO, GERD, recent admission for small-bowel obstruction requiring exploratory laparotomy with lysis of adhesions who returns with decreased p.o. intake and nausea. Decreased po intake/FTT/dysphagia Longstanding history of dysphagia. poor prognosis for PO intake given complex hx of esophageal CA, unilateral vocal cord paralysis & pharyngeal dysphagia w/aspiration as per speech on previous admission weight loss due to decreased po intake GI consult- may need repeat EGD, last done in 2020 showed mild gastric retention which was causing early satiety Full liquid diet with dietary supplements for now speech eval/nutrition eval if necessary pt is open to feeding tube for adequate nutrition; J-tube was discussed on previous admission but pt was able to tolerate adequate po at that time; may need surgical consult depending on clinical course Peripheral neuropathy continue gabapentin gerd On omeprazole at baseline will start IV Pantoprazole for now HTN continue verapamil HFpEF not on diuretics at baseline dvt ppx - lovenox Patient will likely require 2 midnight stay in the hospital for management of dysphagia requiring specialist evaluation Quality Stroke Does the patient have a stroke diagnosis?: No VTE Prior VTE?: No VTE Risk Level:: Medical - moderate - high VTE Device Contraindication: N/A - Device Ordered VTE Drug Contraindication: N/A - Med Ordered
--- NOTE | 2024-07-24 15:59 | PHA.MEDREC ---
Addendum entered by Flavio Henderson RPh 07/24/24 16:06: Med rec checked by [facility] Original Note: Pharmacy Consult ? Medication Reconciliation Pharmacy has completed the medication reconciliation. Spoke to pt to confirm meds.
[2024-07-24 16:00] VITALS: BP 169/87; PULSE 86; RESP 18; TEMP 36.2; O2SAT 97
--- NOTE | 2024-07-24 16:15 | PM.GICN ---
History of Present Illness Data of Consult Service Date: 07/24/24 Requesting physician: Noris Vora Primary Care Provider: DO GITA Domínguez Reason for consult: dysphagia 78 YM with esophageal adenocarcinoma s/p distal esophagectomy and gastric pull-through and recent admission for small-bowel obstruction status post exploratory laparotomy and extensive lysis of adhesions discharged home 07/13 seen at [facility] with ongoing nausea and limited oral intake. Pt had recurrence of esophageal cancer 2021 s/p chemo follows with Dr. Brooks, Pt reports his PO intake has been poor since discharge and he has not been doing well. He is able to take some liquids and notes nausea and fullness after eating a few bites of food and has been loosing wt (160 lbs in 04/2024 to 146 lbs) Pt complains of local tenderness at the site of recent surgical incision and denies abdominal pain or vomiting. He has chronic globus sensation. In the emergency department his lab work was unremarkable. Pt is being admitted to the hospital for further management of decreased oral intake, weight loss, failure to thrive. 07/24/[address] SCAN SHOWED: GASTROINTESTINAL TRACT: Postsurgical changes. No evidence for any obstruction focal lesion. No acute inflammatory changes. ABDOMINAL WALL: Postsurgical changes without evidence for any definite hernia. Mesh placement. LYMPH NODES: Normal. VASCULAR: Unremarkable. PELVIC VISCERA: Post prostatectomy changes. OSSEOUS STRUCTURES: Unremarkable. IMPRESSION: No evidence for any bowel obstruction or acute inflammatory changes. No specific findings to explain patient's symptoms. 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 Surgical History Surgical History History of hemorrhoidectomy (~1993) History of esophagogastroduodenoscopy (EGD) History of colonoscopy History of meniscectomy of right knee (~2003) History of esophagectomy (~2018) History of jejunostomy tube placement (~2018) History of incisional hernia repair (~2019) History of appendectomy History of prostatectomy (~2004) Social History Social History Household Members: [facility] Are you a primary manager career to a significant other at home: No Do you presently have visiting nurse or other home services: No Alcohol intake: current Alcohol intake frequency: does not drink Alcohol type: beer Patient Tobacco Use Status: Former Tobacco user Years Smoked: 35 Smoked in Last 30 Days: No e-Cigarette/Vaping Use: Never Used Second Hand Smoke Exposure: No Use of substances other than those prescribed or required for medical reasons: No Advance Directives: Yes Advance Directives on File: Yes Advance Directives Date on File: 12/04/21 service: Yes Current occupational status: retired Current occupation: rt [employer] Allergies Allergy/AdvReac Type Severity Reaction Status Date / Time No Known Allergies Allergy Verified 07/24/24 09:12 [No Known Allergies*] Active Medications: Current Medications Acetaminophen (Acetaminophen 325 Mg Tablet) 650 mg PO Q6H PRN PRN Reason: Pain, Mild (Pain Scale 1-3), fever or headache Calcium Carbonate (Calcium Carbonate 750 Mg Tab.Chew) 750 mg PO Q4H PRN PRN Reason: Heartburn Docusate Sodium (Docusate Sodium 100 Mg Capsule) 100 mg PO BID [facility] Enoxaparin Sodium (Enoxaparin Sodium 40 Mg/0.4 Ml Syringe) 40 mg SUBCUT Q24H [facility] Gabapentin (Gabapentin 300 Mg Capsule) 600 mg PO BEDTIME [facility] Melatonin (Melatonin 3 Mg Tablet) 6 mg PO BEDTIME PRN PRN Reason: Insomnia Ondansetron HCl (Ondansetron Hcl 4 Mg/2 Ml Vial) 4 mg IVPUSH Q8H PRN PRN Reason: Nausea and Vomiting Pantoprazole Sodium (Pantoprazole Sodium 40 Mg/10 Ml Vial) 40 mg IVPUSH DAILY@0630 [facility] Polyethylene Glycol (Polyethylene Glycol 3350 17 Gm Powd.Pack) [address] [facility] Sodium Chloride (0.9 % Sodium Chloride Flush 3 Ml Syringe) 3 ml IVFLUSH QSHIFT [facility] Verapamil HCl (Verapamil Hcl Sr 240 Mg Tablet.Er) 240 mg PO DAILY [facility]; Protocol Home Medications ?Medication ?Instructions ?Recorded ?Confirmed ?Last Taken ?Type verapamil 240 mg 24 hr 240 mg PO DAILY 11/27/21 07/24/24 07/23/24 History capsule,extended release omeprazole 40 mg capsule,delayed 40 mg PO BID@0630,1630 06/05/23 07/24/24 07/23/24 History release gabapentin 300 mg capsule 600 mg PO BEDTIME 11/18/23 07/24/24 07/23/24 History docusate sodium 100 mg tablet 100 mg PO BID 05/25/24 07/24/24 07/23/24 History Physical Exam Vital Signs: Vital Signs: Last Vital Signs Temp 97.6 F 07/24/24 15:08 Pulse 87 07/24/24 15:08 Resp 18 07/24/24 15:08 BP 174/95 H 07/24/24 15:08 Pulse Ox 94 07/24/24 15:08 O2 Del Method Room Air 07/24/24 15:08 BMI result Body Mass Index 22.1 Const: General: no acute distress Nutritional Appearance: average body habitus Orientation/consciousness: patient oriented x3 Limitations: no limitations HEENT: Head: Yes normal to inspection Ears: hearing grossly normal bilaterally Eyes: Sclerae: sclerae normal Pupils: Equal, round and reactive pupils present Neck: Neck: Yes normal visual inspection Chest: Chest palpation & inspection: normal inspection of the chest Resp: Effort & Inspection: normal respiratory effort Auscultation: clear to auscultation bilaterally Cardio: Palpation: normal PMI Rate: regular rate Rhythm: regular rhythm Heart sounds: S1 normal heart sound present, S2 normal heart sound present and no murmurs GI: Inspection: Yes incision (healing upper midline incision with focal tenderness) Palpation (GI): Soft to palpation, nontender and No hepatosplenomegaly present Auscultation: normal bowel sounds Rectal Exam - Male: Yes deferred Skin: General skin exam: no rashes or lesions noted Neuro: General: patient oriented x3, gait normal and moves all extremities Cranial nerves: Yes Equal, round and reactive pupils present Psych: Appearance: grossly normal Mental Status: mental status grossly normal Results Labs 07/24/24 09:39 07/24/24 09:39 Labs: Short CBC 07/24/24 Range/Units 09:39 WBC 5.2 (4.8-10.8) X10*3/uL Hgb 14.8 (14.0-18.0) g/dl Hct 45.7 (42.0-52.0) % Plt Count 316 D (160-400) X10*3/uL BMP 07/24/24 09:39 Sodium 140 Potassium 4.6 Chloride 105 Carbon Dioxide 25 BUN 9 Creatinine 0.91 Calcium 9.4 Liver Function 07/24/24 Range/Units 09:39 Total Bilirubin 0.4 (0.0-1.0) mg/dL Direct Bilirubin 0.1 (0.0-0.5) mg/dL AST 33 (5-37) U/L ALT 21 (0-40) U/L Alkaline Phosphatase 97 (39-117) U/L Albumin 3.5 (3.5-5.0) g/dL Assessment and Plan (1) Dysphagia: Qualifiers: Dysphagia type: unspecified Qualified Code(s): R13.10 - Dysphagia, unspecified Status: Acute (2) Nausea: Status: Acute (3) Adult failure to thrive: Status: Acute (4) Esophageal adenocarcinoma: Status: Chronic Plan 78 YM with esophageal adenocarcinoma s/p distal esophagectomy and gastric pull-through and recent admission for small-bowel obstruction status post exploratory laparotomy and extensive lysis of adhesions discharged home 07/13 seen at [facility] with ongoing nausea and limited oral intake. Pt had recurrence of esophageal cancer 2021 s/p chemoc follows with Dr. Brooks, Pt reports his PO intake has been poor since discharge and he has not been doing well. He is able to take some liquids and notes nausea and fullness after eating a few bites of food and has been loosing wt (160 lbs in 04/2024 to 146 lbs) He has chronic globus sensation. Dysphagia possible due to anastomotic stricture, esophagitis, esophageal candidiasis RECOMMENDATIONS: 1. Agree with IV PPI and anti emetics and a liquid diet. 2. NPO after mid night tonight for EGD with Dr Powell tomorrow. Procedures Date of Service Date of Service: 07/24/24
[2024-07-24] MEDS: Enoxaparin Sodium 40 MG/0.4 ML SYRINGE SUBCUT (16:25)
[2024-07-24] MEDS: 0.9 % Sodium Chloride Flush 3 ML SYRINGE IVFLUSH (16:26)
--- NOTE | 2024-07-24 18:26 | HO.SKINPHOTO ---
Addendum entered by Janiya Nuñez RN 07/24/24 18:27: wound is nonblancheable Original Note: Location: Category: Stage: Length: Width: Depth: cm Location: Category: Stage: Length: Width: Depth: cm Location: Category: Stage: Length: Width: Depth: cm Location: Category: Stage: Length: Width: Depth: cm Location: Category: Stage: Length: Width: Depth: cm Location: Category: Stage: Length: Width: Depth: cm
[2024-07-24 20:00] VITALS: BP 145/85; PULSE 86; RESP 20; TEMP 37; O2SAT 93
[2024-07-24] MEDS: Docusate Sodium 100 MG CAPSULE PO (20:55)
[2024-07-24] MEDS: Gabapentin 300 MG CAPSULE 600 MG PO (20:56)
[2024-07-25] VITALS (7 sets, daily range): BP systolic 123–159; BP diastolic 65–87; PULSE 62–85; RESP 16–20; TEMP 36.1–36.9; O2SAT 93–96; BMI 22.1
[2024-07-25] MEDS: 0.9 % Sodium Chloride Flush 3 ML SYRINGE IVFLUSH ×4 (05:35→22:40)
[2024-07-25] MEDS: Pantoprazole Sodium 40 MG/10 ML VIAL IVPUSH ×2 (05:35→18:25)
--- NOTE | 2024-07-25 08:26 | MHC.CM.PN ---
CM met with Patient at bedside and addressed IMM with him, providing Patient with the original and a copy has been placed on the chart. Patient lives in a condo with his /HCP/Ryann, uses a walker to assist with mobility, and is active with [facility]. Home/resume said services os the goal and CM has initiated and will follow for dc planning. PCP is Dr. Matthew Hirsch and Patient's Son will transport to home.
[2024-07-25] MEDS: Docusate Sodium 100 MG CAPSULE PO ×2 (09:16→22:40)
[2024-07-25] MEDS: polyethylene glycoL 3350 17 GM POWD.PACK PO (09:16)
[2024-07-25] MEDS: VerapamiL HCL SR 240 MG TABLET.ER PO (09:16)
--- NOTE | 2024-07-25 10:38 | HO.WOUND ---
Wound Consult: Initial 78yr old?male admitted to [facility] on 07/24/24 - See progress notes and H&P for detailed history.? Wound consult placed for Buttock.? Patient agreeable to assessment and photo documentation.? Patient reports tenderness and pain to buttock area. Sacrum Etiology: ?Stage 1 Pressure Injury ?Present on Admission Wound Bed: intact dark red nonblanchable tissue - dry desquamation noted Drainage / Odor: None Edges: ? irregular Debby wound: ? red pink intact tissue No Induration, Fluctuance or Warmth noted Pain: reports pain and tenderness Goals of Treatment: ? airloss mattress and foam dressing to protect from friction and aid in pressure redistritbution Recommendations: 1. Turn and Reposition every 2 hours and as needed for patient comfort.? Use pillows or wedges to support off loading positions. 2. Off Load all bony prominences with use of pillows and heel boots if needed.? Apply Preventative foams where needed. ? 3. Monitor for incontinence and moisture control, use barrier creams when needed for prevention and treatment. 4. Provide adequate and supplemental nutrition.? 5. Order low air loss mattress. 6. When applicable maintain blood glucose levels per Providers order. 7. Sacrum - Off Load pressure with Q2hr turns with pillows. Use waffle cushion when up to chair. Apply sacral foam dressing to area - peel back and assess Q shift and change every 5 days and PRN. Re-consult wound care Nurse for wound deterioration or wound changes.
--- NOTE | 2024-07-25 13:20 | MHC.CLN ---
RE; CONSULT PT IS MODERATELY MALNOURISHED PT WITH MILDLY DEPLETED SUBCUTANEOUS FAT AND MUSCLE MASS WITH 8% NONSIGNIFICANT WT LOSS X 6 MONTHS AND CHRONIC POOR PO INTAKE CURRENTLY RECEIVING F/L DIET MAGIC CUP TID IN PLACE TO INCREASE PO PT OPEN TO TF-[id number] WAS DISCUSSED PER MD NOTE FAMILIAR WITH PT FROM PREVIOUS ADMISSION ON 07/08/24-RECEIVED PPN DURING THAT STAY CONSULT RD IF TF PURSUED SEE ALSO FULL CLINICAL NUTRITION ASSESSMENT
--- NOTE | 2024-07-25 14:18 | MHC.SL.SWA ---
Speech Pathologist Impression: Severe dysphagia (esophagel), moderate pharyngeal dysphagia Risk of Aspiration Due to: Medically Fragile History of Pneumonia Weak Voice History of esophageal CA Dysphasia Diet Status: Liquid Consistency and Strategies for Safe Swallow: Liquid Intake Recommendation: Thin Liquid Intake Strategies: Solid Food Consistency: Dietary Recommendations: Clear liquid diet with thin liquids Additional Modifications to Solid Foods: Oral Medication Intake: Whole with Liquid Please contact the pharmacy regarding appropriate crushable or liquid drug formulations that are available whenever modified delivery is recommended. Compensatory Strategies and Precautions to be Taken for Safe Swallow: Supervision While Eating and Drinking for Safe Swallow: Foods to Avoid: Hard, dry solids, foods that can break into small hard pieces, Swallowing Recommended Treatments: Recommendation for Speech: Comment: Pt has long history of dysphagia with multiple hospitalizations over a short period. It is anticipated pt will be determining most appropriate interventions d/t nature and severity of dysphagia. [facility] continues to follow, though our role will be primarily to support pt decision through education, compensatory strategy training and recommendations for diet modification. Frequency/Duration: Date Range for Service Req: Timeline to reassess: Blood Bank Business Manager Clinican/Clinical Fellow: No Supervisory Statement: I have reviewed and agree with the student/clinical fellow's documentation: N/A Speech Language Pathologist: Ranjana Fontaine M.S., [facility]
[2024-07-25] MEDS: Enoxaparin Sodium 40 MG/0.4 ML SYRINGE SUBCUT (15:27)
--- NOTE | 2024-07-25 15:56 | HO.PM.IMPN ---
Subjective Subjective Date of Service: 07/25/24 Interval History: Offers no acute complaints, no fevers, no chills ,no acute issues overnight. Admitted for decreased by mouth intake, nausea and fullness. Review of Systems All other system reviewed and are negative Physical Exam Vital Signs: Vital Signs: Last Vital Signs Temp 98.4 F 07/25/24 15:50 Pulse 62 07/25/24 15:50 Resp 16 07/25/24 15:50 BP 134/65 07/25/24 15:50 Pulse Ox 93 07/25/24 15:50 O2 Del Method Room Air 07/25/24 15:50 BMI result Body Mass Index 22.1 Const: Other: General resting comfortably in no acute distress. Neck no JVD. CVS regular rate rhythm, Respiratory lungs clear to auscultation, no respiratory distress, no wheeze, no rhonchi. Gastrointestinal abdomen soft, mild tenderness at recent incision site, bowel sounds audible Extremities no edema. Neuro non focal Skin no rash Appropriate affect Objective Data Active Medications Acetaminophen (Acetaminophen 325 Mg Tablet) 650 mg PO Q6H PRN PRN Reason: Pain, Mild (Pain Scale 1-3), fever or headache Calcium Carbonate (Calcium Carbonate 750 Mg Tab.Chew) 750 mg PO Q4H PRN PRN Reason: Heartburn Docusate Sodium (Docusate Sodium 100 Mg Capsule) 100 mg PO BID [facility] Last Admin: 07/25/24 09:16 Dose: 100 mg Documented By: JOEY Enoxaparin Sodium (Enoxaparin Sodium 40 Mg/0.4 Ml Syringe) 40 mg SUBCUT Q24H [facility] Last Admin: 07/25/24 15:27 Dose: 40 mg Documented By: WALT Gabapentin (Gabapentin 300 Mg Capsule) 600 mg PO BEDTIME [facility] Last Admin: 07/24/24 20:56 Dose: 600 mg Documented By: DELPHINE Melatonin (Melatonin 3 Mg Tablet) 6 mg PO BEDTIME PRN PRN Reason: Insomnia Ondansetron HCl (Ondansetron Hcl 4 Mg/2 Ml Vial) 4 mg IVPUSH Q8H PRN PRN Reason: Nausea and Vomiting Last Admin: 07/24/24 16:27 Dose: 4 mg Documented By: KADYTOLARA Pantoprazole Sodium (Pantoprazole Sodium 40 Mg/10 Ml Vial) 40 mg IVPUSH DAILY@0630 [facility] Last Admin: 07/25/24 05:35 Dose: 40 mg Documented By: DELPHINE Polyethylene Glycol (Polyethylene Glycol 3350 17 Gm Powd.Pack) 17 gm PO DAILY [facility] Last Admin: 07/25/24 09:16 Dose: 17 gm Documented By: JOEY Sodium Chloride (0.9 % Sodium Chloride Flush 3 Ml Syringe) 3 ml IVFLUSH QSHIFT [facility] Last Admin: 07/25/24 09:17 Dose: 3 ml Documented By: JOEY Verapamil HCl (Verapamil Hcl Sr 240 Mg Tablet.Er) 240 mg PO DAILY [facility]; Protocol Last Admin: 07/25/24 09:16 Dose: 240 mg Documented By: JOEY Labs 07/24/24 09:39 07/24/24 09:39 Assessment and Plan (1) Dysphagia: Status: Acute (2) Nausea: Status: Acute Plan 78-year-old male with history of esophageal adenocarcinoma s/p distal esophagectomy with gastric pull-through with a recurrence in 2021 status post chemotherapy and radiation, neuropathy, hypertension, SBO, GERD, recent admission for small-bowel obstruction requiring exploratory laparotomy with lysis of adhesions who returns with decreased p.o. intake and nausea. Decreased po intake/FTT/dysphagia Denies nausea, no vomiting, no abdominal pain or fever Able to take liquids but notes nausea and fullness after eating few bites, 14 lb weight loss in last 3 months Seen by GI Dr. Carlson she will agree with IV ppi analgesics and liquid diet and recommend NPO after mid night for possible EGD with Dr. Powell Seen by speech therapy they recommend liquid diet for now if necessary pt is open to feeding tube for adequate nutrition; J-tube was discussed on previous admission but pt was able to tolerate adequate po at that time; may need surgical consult depending on clinical course Peripheral neuropathy continue gabapentin gerd On omeprazole at baseline, continue IV Pantoprazole for now HTN continue verapamil HFpEF No acute exacerbation, not on diuretics at baseline dvt ppx - lovenox Patient will require continued inpatient hospitalization for management of dysphagia and possible EGD at a.m. Quality Stroke Does the patient have a stroke diagnosis?: No VTE Prior VTE?: No VTE Risk Level:: Medical - moderate - high VTE Device Contraindication: N/A - Device Ordered VTE Drug Contraindication: N/A - Med Ordered
--- NOTE | 2024-07-25 17:50 | P.PNGI_ITS ---
Subjective Subjective Date of Service: 07/25/24 Interval History: Course noted. Patient had a liquid diet all day so his upper endoscopy had to be canceled. He describes a poor appetite and some sense of dysphagia, particularly since his recent admission and need for surgery. He remains hoarse from his vocal cord paralysis. Critical Care Time (minutes): 0 Physical Exam 2 Vital Signs: Vital Signs: Last Vital Signs Temp 98.4 F 07/25/24 15:50 Pulse 62 07/25/24 15:50 Resp 16 07/25/24 15:50 BP 134/65 07/25/24 15:50 Pulse Ox 93 07/25/24 15:50 O2 Del Method Room Air 07/25/24 15:50 BMI result Body Mass Index 22.1 Const: General: cooperative, comfortable, no acute distress, alert and awake Eyes: Sclerae: sclerae normal GI: Other: Abd-soft, NT, nondistended Objective Data Labs 07/24/24 09:39 07/24/24 09:39 Procedures Date of Service Date of Service: 07/25/24 Progress Note: A&P Assessment and plan (1) Dysphagia: Status: Acute (2) Anorexia: Status: Acute Assessment and Plan: Imp: He appears clinically stable and his UGI symptoms do not seem particularly acute. This may represent some residual symptoms from his relatively recent surgery and hospitalization. He may have developed some component of gastritis, PUD, or even an anastomotic stricture. I doubt this represents recurrence of his esophageal cancer. Rec: Upper endoscopy with possible balloon dilation 07/[address] Mast. Full consent has been obtained from him for this, including risks of bleeding and perforation. Continue IV PPI. I have placed the Lovenox on hold. D/W patient in detail and he is comfortable with this plan. Thanks Time Spent With Patient Time: Total time managing care of this patient today ____ minutes. Quality Stroke Does the patient have a stroke diagnosis?: No VTE Prior VTE?: No VTE Risk Level:: Medical - moderate - high VTE Device Contraindication: N/A - Device Ordered VTE Drug Contraindication: N/A - Med Ordered
--- NOTE | 2024-07-25 17:50 | MHC.SHP ---
Pre-Procedural Eval Section A - 24 Hr Update-Section A only Date of Service: 07/26/24 The patient is an INPATIENT: Yes The patient has been examined within 24 hours of the surgical procedure. The History & Physical has been completed within 30 days and I have reviewed it.: Yes Section B - Complete if H&P > 30 days Chief Complaint: inability to take po, nausea Allergies: Allergies Allergy/AdvReac Type Severity Reaction Status Date / Time No Known Allergies Allergy Verified 07/24/24 09:12 [No Known Allergies*] Plan I have reviewed the history and physical and performed a pertinent physical examination on my patient. No changes have occurred unless specified. Time Spent With Patient Time: Total time managing care of this patient today ____ minutes.
[2024-07-25] MEDS: Gabapentin 300 MG CAPSULE 600 MG PO (22:40)
[2024-07-26] VITALS (9 sets, daily range): BP systolic 110–170; BP diastolic 66–84; PULSE 59–82; RESP 16–20; TEMP 36.3–37.1; O2SAT 93–97
[2024-07-26] MEDS: Pantoprazole Sodium 40 MG/10 ML VIAL IVPUSH (05:26)
[2024-07-26] MEDS: Docusate Sodium 100 MG CAPSULE PO ×2 (08:56→20:01)
[2024-07-26] MEDS: VerapamiL HCL SR 240 MG TABLET.ER PO (08:56)
[2024-07-26] MEDS: 0.9 % Sodium Chloride Flush 3 ML SYRINGE IVFLUSH ×3 (08:57→20:02)
--- NOTE | 2024-07-26 11:19 | P.CONAN_ITS ---
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 Family history of problems with anesthesia: No Surgical History Surgical History History of hemorrhoidectomy (~1993) History of esophagogastroduodenoscopy (EGD) History of colonoscopy History of meniscectomy of right knee (~2003) History of esophagectomy (~2018) History of jejunostomy tube placement (~2018) History of incisional hernia repair (~2019) History of appendectomy History of prostatectomy (~2004) History of Problems with Anesthesia: No Social History Social History Household Members: Spouse Housing: Condominium Are you a primary career resource technician to a significant other at home: No Do you presently have visiting nurse or other home services: Yes Alcohol intake: current Alcohol intake frequency: does not drink Alcohol type: beer Patient Tobacco Use Status: Former Tobacco user Years Smoked: 35 e-Cigarette/Vaping Use: Never Used Second Hand Smoke Exposure: No Advance Directives Date on File: 12/04/21 service: Yes Current occupational status: retired Current occupation: rt handed Meds Allergies Allergy/AdvReac Type Severity Reaction Status Date / Time No Known Allergies Allergy Verified 07/24/24 09:12 [No Known Allergies*] Active Medications: Current Medications Acetaminophen (Acetaminophen 325 Mg Tablet) 650 mg PO Q6H PRN PRN Reason: Pain, Mild (Pain Scale 1-3), fever or headache Calcium Carbonate (Calcium Carbonate 750 Mg Tab.Chew) 750 mg PO Q4H PRN PRN Reason: Heartburn Docusate Sodium (Docusate Sodium 100 Mg Capsule) 100 mg PO BID [facility] Last Admin: 07/26/24 08:56 Dose: 100 mg Enoxaparin Sodium (Enoxaparin Sodium 40 Mg/0.4 Ml Syringe) 40 mg SUBCUT Q24H [facility] Last Admin: 07/25/24 15:27 Dose: 40 mg Gabapentin (Gabapentin 300 Mg Capsule) 600 mg PO BEDTIME [facility] Last Admin: 07/25/24 22:40 Dose: 600 mg Melatonin (Melatonin 3 Mg Tablet) 6 mg PO BEDTIME PRN PRN Reason: Insomnia Ondansetron HCl (Ondansetron Hcl 4 Mg/2 Ml Vial) 4 mg IVPUSH Q8H PRN PRN Reason: Nausea and Vomiting Last Admin: 07/24/24 16:27 Dose: 4 mg Pantoprazole Sodium (Pantoprazole Sodium 40 Mg/10 Ml Vial) 40 mg IVPUSH BID@0630,1630 [facility] Last Admin: 07/26/24 05:26 Dose: 40 mg Polyethylene Glycol (Polyethylene Glycol 3350 17 Gm Powd.Pack) 17 gm PO DAILY [facility] Last Admin: 07/26/24 09:05 Dose: Not Given Sodium Chloride (0.9 % Sodium Chloride Flush 3 Ml Syringe) 3 ml IVFLUSH QSHIFT [facility] Last Admin: 07/26/24 08:57 Dose: 3 ml Verapamil HCl (Verapamil Hcl Sr 240 Mg Tablet.Er) 240 mg PO DAILY [facility]; Protocol Last Admin: 07/26/24 08:56 Dose: 240 mg Home Medications ?Medication ?Instructions ?Recorded ?Confirmed ?Last Taken ?Type verapamil 240 mg 24 hr 240 mg PO DAILY 11/27/21 07/24/24 07/23/24 History capsule,extended release omeprazole 40 mg capsule,delayed 40 mg PO BID@0630,1630 06/05/23 07/24/24 07/23/24 History release gabapentin 300 mg capsule 600 mg PO BEDTIME 11/18/23 07/24/24 07/23/24 History docusate sodium 100 mg tablet 100 mg PO BID 05/25/24 07/24/24 07/23/24 History Exam Height,Weight and Vital Signs: Height 5 ft 8 in Weight 65.8 kg Last Vital Signs Temp 98.0 F 07/26/24 07:11 Pulse 63 07/26/24 07:11 Resp 18 07/26/24 07:11 BP 153/72 H 07/26/24 07:11 Pulse Ox 96 07/26/24 07:11 O2 Del Method Room Air 07/26/24 07:11 Pertinent Lab Results Pertinent Lab Results: Laboratory Tests 07/24/24 09:39 WBC 5.2 RBC 5.23 Hgb 14.8 Hct 45.7 MCV 87.4 MCH 28.3 MCHC 32.4 RDW 14.6 Plt Count 316 D MPV 10.4 Immature Gran % (Auto) 0.2 Neut % (Auto) 67.9 Lymph % (Auto) 20.5 Mccone % (Auto) 9.9 Eos % (Auto) 1.1 Baso % (Auto) 0.4 Lymph # (Auto) 1.1 L Mccone # (Auto) 0.5 Eos # (Auto) 0.1 Baso # (Auto) 0.0 Abs Immat Gran (auto) 0.01 Absolute Neuts (auto) 3.6 Absolute Nucleated RBC 0.000 Nucleated RBC % (auto) 0.0 Sodium 140 Potassium 4.6 Chloride 105 Carbon Dioxide 25 Anion Gap 15 BUN 9 Creatinine 0.91 Estim Creat Clear Calc 60.2 Estimated GFR > 60 Random Glucose 94 Calcium 9.4 Magnesium 2.1 Total Bilirubin 0.4 Direct Bilirubin 0.1 AST 33 ALT 21 Alkaline Phosphatase 97 Troponin I High Sens < 2.7 C-Reactive Protein 0.16 B-Natriuretic Peptide 16 Total Protein 8.0 Albumin 3.5 Lipase 25 Influenza Type A (PCR) NEGATIVE Influenza Type B (PCR) NEGATIVE RSV RNA Qual (PCR) NEGATIVE SARS-CoV-2 RNA (RT-PCR) NEGATIVE Airway Mallampati Class: II TM Dist: >3cm Neck ROM: Full Heart: RRR Lungs: CTA Assessment and Plan Assessment Anesthesia Assessment: Anesthesia Plan Discussed and Chart Reviewed Final Anesthetic Review Family History of Problems with Anesthesia: No History of Problems with Anesthesia: No NPO: Yes ASA Class: III Final Preanesthetic Review: Meds/Allgs Chart Reviewed, Consent Obtained/Reviewed and Anes Risks/Benef Reviewed Patient Risk: Intermediate Procedure Risk: Low Anesthetic Plan Anesthetic Plan: MAC: Disposition: Standard PACU
[2024-07-26] MEDS: Lactated Ringers 1,000 ML 80 ML IVCONT (11:28)
--- NOTE | 2024-07-26 11:32 | MHC.SPEECHCO ---
Pt NPO for EGD today. EMERGENCY MEDICAL SERVICE MANAGER will follow-up tomorrow for diet advancement.
--- NOTE | 2024-07-26 11:35 | MHC.SHP ---
Pre-Procedural Eval Section A - 24 Hr Update-Section A only Date of Service: 07/26/24 The patient is an INPATIENT: Yes Changes since office visit: No Cold of Flu in the past 2 weeks, No New Medical Problems, No Changes in Medication and No Patient answered all questions The patient has been examined within 24 hours of the surgical procedure. The History & Physical has been completed within 30 days and I have reviewed it.: Yes Section B - Complete if H&P > 30 days Chief Complaint: inability to take po, nausea Allergies: Allergies Allergy/AdvReac Type Severity Reaction Status Date / Time No Known Allergies Allergy Verified 07/24/24 09:12 [No Known Allergies*] Plan I have reviewed the history and physical and performed a pertinent physical examination on my patient. No changes have occurred unless specified. Time Spent With Patient Time: Total time managing care of this patient today ____ minutes.
--- NOTE | 2024-07-26 11:55 | PM.OP ---
Brief Operative Note Date of Service: 07/26/24 Pre-op diagnosis: dysphagia Post-op diagnosis: same Procedure: EGD bx Surgeon: Michael Mast MD Anesthesia: MAC Was an Jewel Bearing Grinder used for this Procedure?: No Estimated blood loss (mL): 2 Pathology: other Condition: stable Disposition: PACU
--- NOTE | 2024-07-26 11:56 | PM.EVENT ---
Event Note Date of Service: 07/26/24 Event Note: EGD note dictated EGD shows no recurrent cancer, ulcer or stricture antral bxs taken to eval for h pylori no dilation needed REC: advance diet f/u bx results Time Spent With Patient Time: Total time managing care of this patient today ____ minutes.
--- NOTE | 2024-07-26 12:54 | OP_ITS ---
DATE OF SERVICE: 07/26/2024 SURGEON: Michael Mast MD INDICATIONS: Dysphagia and history of esophageal adenocarcinoma. PREOPERATIVE DIAGNOSIS: POSTOPERATIVE DIAGNOSIS: PROCEDURE PERFORMED: Upper endoscopy with biopsy. ESTIMATED BLOOD LOSS: COMPLICATIONS: ANESTHESIA: Monitored anesthesia care. ASSISTANTS: SPECIMENS: DESCRIPTION OF PROCEDURE: A history and physical was performed. The risks and benefits of the procedure were explained to the patient. Informed consent was obtained. The patient was placed in the left lateral decubitus position. The Olympus video gastroscope was introduced into the esophagus, stomach, and duodenum. Examination was performed. The scope was removed. He tolerated the procedure well, and was taken to the recovery area in stable condition. FINDINGS: Esophagus: There was no stricture present at the upper esophageal sphincter. The esophagus was normal to the esophagogastric anastomosis at 25 cm, which was widely patent. There was no recurrence of esophageal adenocarcinoma. Stomach: The stomach showed no evidence of masses, ulcers, or polyps. Biopsies were obtained from the antrum to evaluate for H pylori. There was a pill fragment in the stomach and some retained liquid but no food particles. Duodenum: The bulb and 2nd portion were normal. IMPRESSION: Normal endoscopy, status post esophagogastric anastomosis. RECOMMENDATION: 1. Follow up the biopsy results. 2. Continue recommendations as per Speech Pathology regarding his dysphagia symptoms. MD BETTYE Dhillon/LINNETTE / [phone]
--- NOTE | 2024-07-26 13:40 | HO.POSTANES ---
Post Anesthesia Evaluation Post Anesthesia Evaluation Date of Service: 07/26/24 Vital Signs: Vital Signs Temp Pulse Resp BP Pulse Ox O2 Del Method 07/26/24 12:22 97.4 F 59 16 144/74 H 94 Room Air 07/26/24 12:07 97.4 F 62 16 128/75 97 Room Air 07/26/24 11:52 97.4 F 67 16 110/66 97 Room Air 07/26/24 11:21 98.7 F 70 16 170/79 H 95 Room Air 07/26/24 07:11 98.0 F 63 18 153/72 H 96 Room Air 07/26/24 04:00 98.0 F 69 18 137/84 96 Room Air Anesthesia: Monitored Mental Status: Awake Pain Control: Satisfactory Nausea/Vomiting: None Hydration: Adequate Anesthesia-Related Issues: No Anes. Related Issues
--- NOTE | 2024-07-26 14:02 | P.PNIM_ITS ---
Subjective Subjective Date of Service: 07/26/24 Interval History: Underwent EGD this morning, no recurrent cancer, also restriction was noted. Patient denies abdominal pain no nausea no vomiting, no acute events overnight. Review of Systems All other system reviewed and are negative. Physical Exam 2 Vital Signs: Vital Signs: Last Vital Signs Temp 97.4 F 07/26/24 12:22 Pulse 59 07/26/24 12:22 Resp 16 07/26/24 12:22 BP 144/74 H 07/26/24 12:22 Pulse Ox 94 07/26/24 12:22 O2 Del Method Room Air 07/26/24 12:22 BMI result Body Mass Index 22.1 Const: Other: General resting comfortably in no acute distress. Neck no JVD. CVS regular rate rhythm, Respiratory lungs clear to auscultation, no respiratory distress, no wheeze, no rhonchi. Gastrointestinal abdomen soft, mild tender incision site, bowel sounds audible Extremities no edema. Neuro non focal Skin no rash Appropriate affect Objective Data Active Medications Acetaminophen (Acetaminophen 325 Mg Tablet) 650 mg PO Q6H PRN PRN Reason: Pain, Mild (Pain Scale 1-3), fever or headache Calcium Carbonate (Calcium Carbonate 750 Mg Tab.Chew) 750 mg PO Q4H PRN PRN Reason: Heartburn Docusate Sodium (Docusate Sodium 100 Mg Capsule) 100 mg PO BID [facility] Last Admin: 07/26/24 08:56 Dose: 100 mg Documented By: JOSE Enoxaparin Sodium (Enoxaparin Sodium 40 Mg/0.4 Ml Syringe) 40 mg SUBCUT Q24H [facility] Last Admin: 07/25/24 15:27 Dose: 40 mg Documented By: WALT Gabapentin (Gabapentin 300 Mg Capsule) 600 mg PO BEDTIME [facility] Last Admin: 07/25/24 22:40 Dose: 600 mg Documented By: JOEY Lactated Ringer's (Lr) 1,000 mls @ 80 mls/hr IVCONT .[id number] [facility] Last Admin: 07/26/24 11:28 Dose: 80 mls/hr Documented By: LEXUS Melatonin (Melatonin 3 Mg Tablet) 6 mg PO BEDTIME PRN PRN Reason: Insomnia Naloxone HCl (Naloxone Hcl 0.4 Mg/Ml Vial) 0.04 mg IVPUSH Q5M PRN PRN Reason: Excessive sedation or RR < 8 Ondansetron HCl (Ondansetron Hcl 4 Mg/2 Ml Vial) 4 mg IVPUSH Q8H PRN PRN Reason: Nausea and Vomiting Last Admin: 07/24/24 16:27 Dose: 4 mg Documented By: MILAGRO Pantoprazole Sodium (Pantoprazole Sodium 40 Mg/10 Ml Vial) 40 mg IVPUSH BID@0630,1630 [facility] Last Admin: 07/26/24 05:26 Dose: 40 mg Documented By: KATHERIN Polyethylene Glycol (Polyethylene Glycol 3350 17 Gm Powd.Pack) 17 gm PO DAILY [facility] Last Admin: 07/26/24 09:05 Dose: Not Given Documented By: JOSE Non-Admin Reason: NPO Sodium Chloride (0.9 % Sodium Chloride Flush 3 Ml Syringe) 3 ml IVFLUSH QSHIFT [facility] Last Admin: 07/26/24 08:57 Dose: 3 ml Documented By: JOSE Verapamil HCl (Verapamil Hcl Sr 240 Mg Tablet.Er) 240 mg PO DAILY [facility]; Protocol Last Admin: 07/26/24 08:56 Dose: 240 mg Documented By: OJSE Labs 07/24/24 09:39 07/24/24 09:39 Assessment and Plan (1) Dysphagia: Status: Acute (2) Nausea: Status: Acute (3) Adult failure to thrive: Status: Acute Plan 78-year-old male with history of esophageal adenocarcinoma s/p distal esophagectomy with gastric pull-through with a recurrence in 2021 status post chemotherapy and radiation, neuropathy, hypertension, SBO, GERD, recent admission for small-bowel obstruction requiring exploratory laparotomy with lysis of adhesions who returns with decreased p.o. intake and nausea. Decreased po intake/FTT/dysphagia Denies nausea, no vomiting, no abdominal pain or fever EGD this morning showed no ulcer, no stricture, follow biopsy report Resume diet if tolerates, will discharge home DC IV fluids, change IV Protonix to oral PPI Speech therapy will follow at a.m. Peripheral neuropathy continue gabapentin gerd On omeprazole at baseline, continue IV Pantoprazole for now HTN continue verapamil HFpEF No acute exacerbation, not on diuretics at baseline dvt ppx - lovenox Patient will require continued inpatient hospitalization for management of dysphagia and tolerance to diet. Quality Stroke Does the patient have a stroke diagnosis?: No VTE Prior VTE?: No VTE Risk Level:: Medical - moderate - high VTE Device Contraindication: N/A - Device Ordered VTE Drug Contraindication: N/A - Med Ordered
[2024-07-26] MEDS: Omeprazole 20 MG CAPSULE.DR PO (16:56)
[2024-07-26] MEDS: Enoxaparin Sodium 40 MG/0.4 ML SYRINGE SUBCUT (16:56)
[2024-07-26] MEDS: ondansetron HCL 4 MG/2 ML VIAL IVPUSH (16:56)
[2024-07-26] MEDS: Gabapentin 300 MG CAPSULE 600 MG PO (20:01)
[2024-07-27] MEDS: Omeprazole 20 MG CAPSULE.DR PO (03:33)
[2024-07-27 03:55] VITALS: BP 157/80; PULSE 61; RESP 20; TEMP 36.9; O2SAT 94
[2024-07-27 07:17] VITALS: BP 152/88; PULSE 75; RESP 18; TEMP 36.3; O2SAT 98
[2024-07-27] MEDS: VerapamiL HCL SR 240 MG TABLET.ER PO (08:30)
[2024-07-27] MEDS: Docusate Sodium 100 MG CAPSULE PO (08:30)
[2024-07-27] MEDS: 0.9 % Sodium Chloride Flush 3 ML SYRINGE IVFLUSH (08:31)
--- NOTE | 2024-07-27 09:40 | PM.DS ---
DS: Providers Provider Date of Service: 07/27/24 Date of admission: 07/24/24 15:19 Date of discharge: 07/27/24 Primary care physician: Matthew Hirsch DO Consults: 07/24/24 15:12 Consult to Gastroenterology Routine Consulting Provider: Kevin Carlson Reason for consultation: unable to take po h/o esophageal ca s/p esophagect with pull through Has provider been notified: No 07/24/24 19:18 Consult to Wound Care Routine Reason for consultation: to assess buttocks DS: Diagnosis Discharge Diagnosis (1) Dysphagia: Status: Acute (2) Nausea: Status: Acute (3) Adult failure to thrive: Status: Acute DS: Summary Hospital Course Hospital Course: History of presenting illness: Date of Service: 07/24/24 Attending physician on admission: Staci Whipple Chief Complaint: Nausea This is an 78 year old male with h/o esophageal adenocarcinoma s/p distal esophagectomy with gastric pull-through and recent admission for small-bowel obstruction status post exploratory laparotomy with extensive lysis of adhesions discharged home 07/13 who returns to the emergency department with ongoing nausea and limited oral intake. Since discharge he reports he has not been doing well. Has hasn't been able to tolerate much oral intake. He has been able to eat a few bites of food but then becomes full and nauseated. He has not had abdominal pain (outside bernadette-incisional tenderness from surgery) and has not had any vomiting. He has chronic globus sensation. He has been able to tolerate some liquids. Because of his decreased p.o. intake he has been losing weight. In the emergency department his lab work was unremarkable. CT scan of the abdomen pelvis showed no evidence for bowel obstruction or acute inflammatory changes. He will be admitted to the hospital for further management of decreased oral intake, weight loss, failure to thrive. Hospital course: 78-year-old male with history of esophageal adenocarcinoma s/p distal esophagectomy with gastric pull-through with a recurrence in 2021 status post chemotherapy and radiation, neuropathy, hypertension, SBO, GERD, recent admission for small-bowel obstruction requiring exploratory laparotomy with lysis of adhesions who returns with decreased p.o. intake and nausea and admitted to medical floor with a diagnosis of. Decreased po intake/FTT/dysphagia had no abdominal pain or fever, underwent EGD by Dr. Pro that showed no ulcer, no stricture, gastric biopsy pending, subsequently diet advanced to regular that patient is tolerating fairly well but has difficulty with certain consistency and has fullness , recommend small frequent meals will discharge home with VNA and speech therapy services. Peripheral neuropathy continue gabapentin Gerd continue omeprazole HTN stable blood pressure continue verapamil HFpEF No acute exacerbation, not on diuretics at baseline. Time Attestation Discharge Coordination Time (in mins): 38 Quality: Safe Use of Opioids Does Pt have an Active Cancer Diagnosis on the Problem List?: No Quality: Stroke Does the patient have a stroke diagnosis?: No Physical Exam Vital Signs: Vital Signs: Last Vital Signs Temp 97.4 F 07/27/24 07:17 Pulse 75 07/27/24 07:17 Resp 18 07/27/24 07:17 BP 152/88 H 07/27/24 07:17 Pulse Ox 98 07/27/24 07:17 O2 Del Method Room Air 07/27/24 07:17 BMI result Body Mass Index 22.1 Const: Other: General resting comfortably in no acute distress. Neck no JVD. CVS regular rate rhythm, Respiratory lungs clear to auscultation, no respiratory distress, no wheeze, no rhonchi. Gastrointestinal abdomen soft, nondistended, bowel sounds audible Extremities no edema. Neuro non focal Skin no rash Appropriate affect DS: Data Data Completed and Pending Completed studies during hospitalization [Text1]: Procedures Drainage of Mediastinum, Percutaneous Approach, Diagnostic (11/27/21) Excision of Mediastinum, Percutaneous Approach, Diagnostic (11/27/21) Release Small Intestine, Open Approach (07/01/24) Pending studies at discharge: Pending at discharge 07/26/24 11:47 Surgical [PTH] Routine Discharge Plan Discharge Anticipated Discharge Date/Time: 07/27/24 09:38 Patient Disposition: Home Health Service Discharge Diagnosis: Dysphagia Referrals: Matthew Hirsch DO [Primary Care Provider] - 1 Week Discharge Medications: Continued omeprazole 40 mg Capsule,Delayed Release(Dr/Ec) 40 mg PO BID@0630,1630 gabapentin 300 mg capsule 600 mg PO BEDTIME verapamil 240 mg capsule,ext rel. pellets 24 hr 240 mg PO DAILY polyethylene glycol 3350 17 gram Powder In Packet 17 g PO DAILY Qty: 30 0RF docusate sodium 100 mg Tablet 100 mg PO BID Discharge Orders: Discharge Order (Routine); Ordered 07/27/24 Ordered By: Macey Bowden Diet: Advance to usual diet Activity on Discharge: As tolerated Stand Alone Forms: Patient Portal Discharge page Print Language: Mohawk Care Plan Goals: Dysphagia/failure to thrive EGD showed no acute abnormality recommend to take small frequent meals, continue regular diet with thin liquids, continue compensatory strategies. Health Concerns: Continue all home medications as before Plan of Treatment: Outpatient follow-up with primary care physician call for appointment Assessment: As above
--- NOTE | 2024-07-27 10:00 | MHC.CLN ---
F/U PT IS MODERATELY MALNOURISHED SEE FULL CLINICAL NUTRITION ASSESSMENT DATED 07/25/24 DIET RX: REGULAR-APPROPRIATE PT WITH INCREASED NUTRITION NEEDS R/T STAGE 1 [facility] WILL RE-START MAGIC CUP TID IN PLACE TO INCREASE PO MONITOR PO AND ENCOURAGE SUPPLEMENT
[2024-07-27 11:04] VITALS: BP 126/75; PULSE 96; RESP 16; TEMP 36.6; O2SAT 99
[2024-07-27 11:22] VITALS: O2SAT 98
--- NOTE | 2024-07-27 11:30 | MHC.SL.SWA ---
Speech Pathologist Impression: Dysphagia secondary to esophageal CA/post radiation, unilateral VC paralysis and history of aspiration Risk of Aspiration Due to: Medically Fragile History of Pneumonia Weak Voice Dysphasia Diet Status: Pt being d/c home with VNA services, continued dysphagia intervention appropriate for short term treatment d/t nature and severity of pt dysphagia. Liquid Consistency and Strategies for Safe Swallow: Liquid Intake Recommendation: Thin Liquid Intake Strategies: Small Sips Double Swallow Solid Food Consistency: Dietary Recommendations: Regular Additional Modifications to Solid Foods: Oral Medication Intake: Whole with Liquid Please contact the pharmacy regarding appropriate crushable or liquid drug formulations that are available whenever modified delivery is recommended. Compensatory Strategies and Precautions to be Taken for Safe Swallow: Sitting Upright (90 deg) Double Swallow Supersupraglottic Swallow Small Bites and Sips Rate of Ingestion Change Avoid Specific Foods Supervision While Eating and Drinking for Safe Swallow: None Needed Foods to Avoid: Hard, dry solids, foods that can break into small hard pieces, Swallowing Recommended Treatments: Compens. Strategy Educat. Recommendation for Speech: Comment: Pt has long history of dysphagia with multiple hospitalizations over a short period.Pt has determined he wants to remain on PO diet, though he is aware of the risks for continued involvement d/t nature and severity of dysphagia. Pt is a candidate for short term in home skilled ST to facilitate implementation of most appropriate interventions with education, training in compensatory strategies and recommendations for diet modifications. Frequency/Duration: Date Range for Service Req: Timeline to reassess: International Trade Manager Clinican/Clinical Fellow: No Supervisory Statement: I have reviewed and agree with the student/clinical fellow's documentation: N/A Speech Language Pathologist: Ranjana Fontaine M.S., CCC-GRID MAKER
--- NOTE | 2024-07-27 12:39 | MHC.CM.PN ---
[facility] p[facility] son to transport him home.
--- NOTE | 2024-07-27 12:40 | W.MHC.F2F ---
Service Date Service Date: 07/27/24 Encounter Date of encounter: 07/27/24 Reasons for Services Signs and symptoms assessed: Dysphagia/failure to thrive Reason for residential: medication management and teach disease management Reason for physical therapy: home safety and mobility Reason for speech therapy: swallowing impairment Homebound: Leaving the home is medically contraindicated at this time without the asist of a device and/or another person due th the listed conditions above and below. Reason homebound: weakness related to hospital stay Certification: Based on the above findings, I certify that this patient is confined to the home and needs intermittent residential care, physical therapy and/or speech therapy, or continues to need occupational therapy. The patient is under my care, and I have initiated the establishment of the plan of care. The patient will be followed by a physician who will periodically review the plan of care. Time Spent With Patient Time: Total time managing care of this patient today ____ minutes.
== END 2024-07-27 12:42 | disposition home health service (06) | DRG 392 ==
LOC: HO.ED 14:28 → HO.EDOVER 15:49 → HO.IMC 16:12
PROVIDERS: Internal Medicine Gastroenterology; Admitting Provider Physician Assistant Medical; Emergency Provider Emergency Medicine; PCP Internal Medicine; Visit Provider Hospitalist
PROC: 0DB78ZX Excision of Stomach, Pylorus, Via Natural or Artificial Opening Endoscopic, Diagnostic (ICD-10-PCS; principal; 2024-07-26 12:30)
DX: R13.10 Dysphagia, unspecified (principal); I50.32 Chronic diastolic (congestive) heart failure; G62.9 Polyneuropathy, unspecified; K21.9 Gastro-esophageal reflux disease without esophagitis; R62.7 Adult failure to thrive; Z68.22 Body mass index [BMI] 22.0-22.9, adult; I11.0 Hypertensive heart disease with heart failure; Z85.01 Personal history of malignant neoplasm of esophagus; Z20.822 Contact with and (suspected) exposure to COVID-19; Z87.891 Personal history of nicotine dependence; Z79.899 Other long term (current) drug therapy
CPT/HCPCS: 0241U; 36415; 71045; 74177; 80048; 80076; 83690; 83735; 83880; 84484; 85025; 86140; 88305; 88313; 88342; 92526; 92610; 93005; 99285; J1650; J2405; J2470; J7120; Q9967

== ENCOUNTER → 2024-07-24 09:25 | Outpatient (BNV) | payer MEDICARE, SELFPAY | PROVIDERS: Admitting Provider Physician Assistant Medical; Emergency Provider Emergency Medicine; PCP Internal Medicine; Visit Provider Internal Medicine | DX: R94.31 Abnormal electrocardiogram [ECG] [EKG] (principal) | CPT/HCPCS: 93010 ==

== ENCOUNTER → 2024-07-24 15:19 | Outpatient (BNV) | payer MEDICARE, SELFPAY | PROVIDERS: Admitting Provider Physician Assistant Medical; Emergency Provider Emergency Medicine; PCP Internal Medicine; Visit Provider Internal Medicine Gastroenterology | DX: R13.10 Dysphagia, unspecified (principal); R11.0 Nausea; R62.7 Adult failure to thrive; C15.9 Malignant neoplasm of esophagus, unspecified | CPT/HCPCS: 99499 ==

== ENCOUNTER → 2024-07-24 15:19 | Outpatient (BNV) | payer MEDICARE, SELFPAY | PROVIDERS: Admitting Provider Physician Assistant Medical; Emergency Provider Emergency Medicine; PCP Internal Medicine; Visit Provider Physician Assistant Medical | DX: R13.10 Dysphagia, unspecified (principal); R11.0 Nausea; R62.7 Adult failure to thrive | CPT/HCPCS: 99223; 99232; 99239; G0180 ==

== ENCOUNTER 2024-08-23 13:31 | Outpatient (AMB) | payer MEDICARE, SELFPAY ==
--- NOTE | 2024-08-23 13:39 | A.OFFPC_ITS ---
Vital Signs 08/23/24 13:50 Height 5 ft 4.75 in Weight 146 lb BMI 24.5 BP 118/76 Blood Pressure Location Rt brachial Pulse 89 Pulse Source Pulse Oximeter Temp 97.0 F Pulse Oximetry (%) 97 Intake Visit Reasons: follow up Intake Note: here for follow up and right eye is sorev and travels down right arm says it's been going on for a year, has a port and every time they change it he gets a rash throat is constantly sore. He tovar not have much of an appetite. 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 GERD (gastroesophageal reflux disease) Constipation Throat mass Mass of right side of neck Personal history of nicotine dependence History of prostate cancer (~2004) History of small bowel obstruction (~2019) Shingles Vitamin B12 deficiency Diverticulosis (~1998) Osteoarthritis Basal cell carcinoma, scalp/neck Cervical spondylosis Hypercholesterolemia Hypertension Melanoma Esophageal adenocarcinoma (~2017) Surgical History (Updated 08/04/24 @ 00:02 by Ammy Bowser) History of hemorrhoidectomy (~1993) History of esophagogastroduodenoscopy (EGD) History of colonoscopy History of meniscectomy of right knee (~2003) History of esophagectomy (~2018) History of jejunostomy tube placement (~2018) History of incisional hernia repair (~2019) History of appendectomy History of prostatectomy (~2004) Family History Son Non-Hodgkin lymphoma Father Prostate cancer Mother No problems noted. Social History Household Members: Spouse Housing: Condominium Are you a primary dialysis patient care technician to a significant other at home: No Do you presently have visiting nurse or other home services: No Alcohol intake: current Alcohol intake frequency: does not drink Alcohol type: beer Patient Tobacco Use Status: Former Tobacco user Years Smoked: 35 e-Cigarette/Vaping Use: Never Used Second Hand Smoke Exposure: No Advance Directives Date on File: 12/04/21 service: Yes Current occupational status: retired Current occupation: rt handed Questionnaire Thrive Questionnaire Date Thrive assessed: 07/25/24 Physical exam (Primary Care) Vital Signs: Last Vital Signs Temp 97.0 F 08/23/24 13:50 Pulse 89 08/23/24 13:50 BP 118/76 08/23/24 13:50 Pulse Ox 97 08/23/24 13:50 Tobacco/Smoking Status: Tobacco use Status Patient Tobacco Use Status Former Tobacco user 08/23/24 13:40 e-Cigarette/Vaping Use Never Used 08/23/24 13:40 Thrive Assessment: Date of Thrive Assessment Date Thrive assessed 07/25/24 08/23/24 13:40 Coding Level of Care Code New Pt Level 4 (68921) Complex EM visit Add On G2211 Diagnoses Esophageal adenocarcinoma C15.9 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 (2) Chemotherapy-induced peripheral neuropathy: Code(s): G62.0 - Drug-induced polyneuropathy; T45.1X5A - Adverse effect of antineoplastic and immunosuppressive drugs, initial encounter Category: Medical Plan: Condition is stable. (3) Hypertension: Code(s): I10 - Essential (primary) hypertension Category: Medical Plan: BP is in range. Continue current medications. (4) Hypercholesterolemia: Code(s): E78.00 - Pure hypercholesterolemia, unspecified Category: Medical Plan: History of Present Illness The patient is an 79-year-old male presenting with dysphagia. He has a history of esophageal cancer, for which he underwent surgery and radiation therapy. The treatment concluded with restructuring of the stomach to the esophagus, eliminating muscular function in his esophagus which led to swallowing difficulties. This has been ongoing for an extended period, during which various swallowing evaluations were performed without conclusive findings. He experiences food retention in the esophagus, requiring liquids for clearance, often causing coughing and choking episodes. Previously, he was on a feeding tube post-cancer treatment, which lasted approximately eight months. The patient reports a significant weight loss post-surgery, from 178 lbs to 140 lbs, and recent stabilization at 146 lbs. Additionally, he recounts an uneasy sensation in the stomach approximately 1.5 to 2 hours post-ingestion and intermittently t akes antacids for relief. His dietary intake includes some attempts at nutritional supplements like Ensure, which cause discomfort. The patient denies current weight loss. His blood pressure and relevant labs, last conducted in July, are reported to be stable. 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 - Quit smoking between the ages of 48 and 53. - No current weight loss noted; history of weight reduction post-esophageal surgery. - His is also actively involved in his care. Review of Systems - Gastrointestinal: Reports uneasy feeling in the stomach after meals. - General: Denies current weight loss. - Respiratory: Reports episodes of coughing due to food retention. Physical Exam General: Appearance normal, both eyes and all related structures Nutritional Appearance: Well nourished, weight 146 lbs Orientation/consciousness: Patient oriented x3 Limitations: No limitations Head: Normal to inspection Neck: Normal visual inspection Chest: Normal palpation of entire chest wall Respiratory: Normal respiratory effort Neurology: Patient oriented x3 Results - Labs: Blood work from July reported as normal. Plan - Discuss continued monitoring of weight and nutritional status to prevent further unintended weight loss. - Consideration of reduced dose omeprazole to once daily to evaluate symptom improvement. - Continue monitoring blood pressure with current antihypertensive medication. - Plan for follow-up with Dr. Crawford for further evaluation regarding swallowing difficulties. - Ensure adequate oral intake is maintained, and revisit alternative nutritional support options if needed. Patient was informed and verbally consented to the use of an ambient scribe for clinic note documentation during this visit. Discussion Notes I discussed the need for a specific follow-up with Dr. Crawford regarding his swallowing difficulties and the importance of monitoring nutritional status to prevent weight loss. We evaluated the efficacy of omeprazole in managing GERD symptoms, suggesting a reduction in dosage to re-evaluate his gastrointestinal comfort. It was noted that his recent surgeries have adapted his stomach anatomy, thus requiring ongoing symptom management. He was informed about the potential for using a G-tube again if oral intake becomes inadequate, while he retains the option of enjoying food orally for taste and preference. Discussions around maintaining stable blood pressure with current medications were also addressed. Regular monitoring and possibly lifestyle adjustments were recommended, as necessary for overall health maintenance. Patient Instructions - Monitor weight regularly and report any significant changes. - Continue current medication for hypertension as prescribed. - Reduce omeprazole intake to once daily and observe for any change in gastric discomfort. - Follow up with Dr. Crawford as scheduled for evaluation of swallowing issues. - Engage in dietary adjustments as necessary, considering intestinal tolerance. - Remain vigilant for symptoms warranting immediate medical attention, such as severe weight loss or exacerbated difficulty swallowing.
[2024-08-23 13:50] VITALS: BP 118/76; PULSE 89; TEMP 36.1; O2SAT 97; BMI 24.5
--- OUTSIDE RECORDS SUMMARY | 2024-08-23 15:48 | XMS_ITS ---
Author Organization Matthew Hirsch DO, [facility] Address [address] [place], [place] [id number] Care Team Providers Care Manager Completions Name Role Phone Matthew Hirsch Primary Care Provider REASON FOR VISIT Message Encounters Encounter Location Date Provider Diagnosis Matthew Hirsch DO, FACP [address] [place] [phone] 07/29/2024 Matthew Hirsch PLAN OF TREATMENT No Information
--- OUTSIDE RECORDS SUMMARY | 2024-08-23 15:48 | XMS_ITS ---
Author Organization [facility] Address [address] [place] [address] Care Team Providers Care Assistant Producer Name Role Phone Matthew Hirsch DO Primary Care Provider Unavail able Matthew Powell Unavailable [phone] REASON FOR VISIT pathology Encounters Encounter Location Date Provider Diagnosis [facility] [address] [place] [address] 07/29/2024 Matthew Powell PLAN OF TREATMENT No Information
--- OUTSIDE RECORDS SUMMARY | 2024-08-23 15:48 | XMS_ITS ---
Author Organization Matthew Hirsch DO, FACP Address [address] [place], [place] [id number] Care Team Providers Care Behavior Interventionist Name Role Phone Matthew Hirsch Primary Care Provider [phone] Encounters Encounter Location Date Provider Diagnosis Matthew Hirsch DO, FACP [address] [place], [place] [phone] 2024 Matthew Hirsch PLAN OF TREATMENT No Information
--- OUTSIDE RECORDS SUMMARY | 2024-08-23 15:48 | XMS_ITS ---
Author Organization Matthew Hirsch DO, [facility] Address [address] [place], [place] [id number] Care Team Providers Care Tailoring Teacher Name Role Phone Matthew Hirsch Primary Care Provider [phone] REASON FOR VISIT FYI Encounters Encounter Location Date Provider Diagnosis Matthew Hirsch DO, FACP [address] [place], [place] [phone] 07/27/2024 Matthew Hirsch PLAN OF TREATMENT No Information
--- OUTSIDE RECORDS SUMMARY | 2024-08-23 15:48 | XMS_ITS ---
Author Organization [facility] Address [address] [place] [address] Care Team Providers Care Pipe Fitter Gas Pipe Name Role Phone Matthew Hirsch DO Primary Care Provider Unavail able Matthew Powell Unavailable [phone] REASON FOR VISIT requesting soon appt pt with dysphagia/hx of esophageal ca Encounters Encounter Location Date Provider Diagnosis [facility] [address] [place] [address] 08/12/2023 Matthew Powell PLAN OF TREATMENT No Information
--- OUTSIDE RECORDS SUMMARY | 2024-08-23 15:48 | XMS_ITS ---
Author Organization [facility] Address [address] [place] [address] Care Team Providers Care Electrical Subcontractor Name Role Phone Matthew Hirsch DO Primary Care Provider Unavail able Andre Matthew Unavailable [phone] ALLERGIES No Known Allergies REASON FOR VISIT [...] Code Notes Problem Hoarseness (R49.0) Active confirmed 77808799 Problem Pharyngeal dysphagia (R13.13) Active confirmed 37183815416030 Problem Chronic cough (R05.3) Active confirmed 48560393 VITAL SIGNS BMI 25.09 kg/m2 08/13/2023 Blood pressure systolic 00 mm Hg 08/13/19 24 Blood pressure diastolic 00 mm Hg 024 Height 68 in 08/13/2023 Temperature 97.7 degrees Fahrenheit 08/13/19 24 Weight 165 lbs 08/13/2023 Encounters Encounter Location Date Provider Diagnosis [facility] [address] [place] [address] 08/13/2023 Matthew Powell Hoarseness R49.0 ; Pharyngeal [...]
--- OUTSIDE RECORDS SUMMARY | 2024-08-23 15:48 | XMS_ITS | Patient Health Record ---
Author Organization [facility] Address [address] [place] [address] Care Team Providers Care Pricing Manager Name Role Phone Matthew Hirsch DO Primary Care Provider Unavail able Matthew Powell Unavailable [phone] ALLERGIES No Known Allergies RESULTS Component Value Reference Range Notes FL barium swallow modified Reviewed date:10/27/2023 10:59:30 PM Interpretation: Performing Lab: Notes/Report: [address] [address] Fluoroscopy Report Signed Patient: Fuad Orellana MR#: [id number] : 1945 Acct:[id number] Age/Sex: 78 / M ADM Date: 09/09/23 Loc: [facility] Attending Dr: Matthew Powell MD Ordering Physician: Matthew Powell Date of Service: 09/09/23 Procedure(s): FL barium swallow modified Accession Number(s): [id number] cc: Matthew Powell EXAMINATION: Modified Barium Swallows [...] in OV> 10/05/23 1124 DD/ 1507 TD/TT: Front End Mechanic: Pathology Reviewed date:07/29/2024 07:52:21 AM Interpretation: Performing Lab:[facility], [address] [place] [id number] Notes/Report: REASON FOR REFERRAL No Information MEDICATIONS Medication [...] Notes Problem Esophageal dysphagia (R13.10) Active confirmed 62198809 Problem Gastroesophageal reflux disease, esophagitis presence not specified (K21.9) Active confirmed 245085030 Problem Abnormal upper gastrointestinal barium series (R93.3) Active confirmed 680458902 Problem 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) Active confirmed 432672078 Problem History of esophageal cancer (Z85.01) Active confirmed 649576901 Problem Small bowel obstruction (K56.609) Active confirmed 605444608 Problem Constipation, unspecified constipation type (K59.00) Active confirmed 77860472 Problem Dysphagia (R13.10) Active confirmed Dys phagia (84468389) Problem Personal history of malignant neoplasm of esophagus (Z85.01) Active confirmed History of malignant neoplasm of esophagus (584136014) Problem Hoarseness (R49.0) Active confirmed 502 05330 Problem Pharyngeal dysphagia (R13.13) Active confirmed 63001987769519 Problem Chronic cough (R05.3) Active confirmed 06030275 Problem Anorexia (R63.0) Active confirmed Anore kirstie (37853683) Encounters Encounter Location Date Provider Diagnosis [facility] [address] [place] [address] 07/29/2024 Matthew Powell PLAN OF TREATMENT Pending Test Test Name Order Date XR BARIUM SWALLOW, MODIFIED VIDEO 2023 Future Test Test Name Order Date UPPER GI ENDOSCOPY [place] DILATION OF ESOPH 07/28/2018 UPPER GI ENDOSCOPY [place] DILATION OF ESOPH 01/22/2021 Insurance Providers Payer Name Payer Address Payer Phone Subscriber Number Group Number Insured Name Patient Relationship to Insured Coverage Start Date Coverage End Date [facility] [address] [place] [phone] [id number] FUAD FERRELL Self - patient is the insured MEDICAL (GENERAL) HISTORY Medical History History ICD Code Denies CA,DM,CVA,Lung disease,renal dise ase Prostate cancer--surgery as below HTN Hyperlipidemia Negative screening colonoscopies in 1998 and in 2009 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 Brooks--surgery with Dr. Garvey at [facility] 02/2019 SBO 02/2020--treated with NG tube--normal SB [...]
--- OUTSIDE RECORDS SUMMARY | 2024-08-23 15:48 | XMS_ITS | Data Portability ---
Author Organization [place] - [facility], Allergy Address [address] [address] Care Team Providers Care Flower Cheniller Name Role Phone EDGARD MARCELINO Primary Care [...] Organization Details Recorded Time Vocal cord paralysis 784228246 Active 2023 EDGARD VERDIN MD [address] 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, unilatera l; Note: Date Diagnosed : 11/12/2023 1:50 PM (J38.01) Not Available [facility] 02:53:42 Dysphagia 38320362 Active 2023 Dysphagia , unspecifi ed; Note: Date Diagnosed : 11/12/2023 1:50 PM (R13.10) Not Available [facility] 02:53:43 Dysphonia 49811845 Active 2023 Other voice and resonance disorders ; Note: Date Diagnosed : 11/12/2023 1:50 PM (R49.8) Not Available [facility] 02:53:43 Finding of resonance of voice 004170500 Active 2023 Other voice and resonance disorders ; Note: Date Diagnosed : 11/12/2023 1:50 PM (R49.8) Not Available [facility] 02:53:43 History of malignant neoplasm of esophagus 209290781 Active 2023 Personal history of malignant neoplasm of esophagus ; Note: Date Diagnosed : 11/12/2023 1:50 PM (Z85.01) Not Available [facility] 02:53:44 Problem Notes None recorded. Procedures Surgical History Date Name Laterality Status Provider Name and Address Organization Details Recorded Time 4 FFL_RE completed EDGARD VERDIN MD [address] [place] [address],[place] [address], [place], [address], [facility] 03/03/2024 12:41:19 injection of vocal cords completed EDGARD VERDIN MD [address] [place] [address],[address], [address], [place] - [facility] 03/03/2024 12:39:31 Imaging Results Imaging Date Name Status [facility] Details LastModified Time 11/03/2023 imaging/diag nostic result completed Information not available 03/30/2024 14:23:42 07/20/2023 imaging/diag nostic result completed Information not available 03/30/2024 14:24:00 07/29/2023 imaging/diag nostic result completed Information not available 03/30/2024 14:24:01 Procedure Notes None recorded. Medical Equipment None Reported. Medications Name Sig Start Date Stop Date Status Note LastModified by Organization Details LastModified Time lisinopril 20 mg tablet active Medication ID: [id number] Bran d Name: lisinopril Send Method: E-Prescribe d Subs Allowed: subs OK Medicati onGenericNa me: lisinopril Not Available Not Available Not Available omeprazole 40 mg capsule,delay ed release active Medication ID: [id number] Bran d Name: omeprazole Send Method: E-Prescribe d Subs Allowed: subs OK Medicati onGenericNa me: omeprazole Not Available Not Available Not Available amitriptyline 25 mg tablet active Not Available Not Available Not Available gabapentin 300 mg capsule active Medication ID: [id number] Bran d Name: gabapentin Send Method: E-Prescribe d Subs Allowed: subs OK Medicati onGenericNa me: gabapentin Not Available Not Available Not Available verapamil ER (SR) 240 mg tablet,extend ed release active Medication ID: [id number] Bran d Name: verapamil S end Method: E-Prescribe d Subs Allowed: subs OK Medicati onGenericNa me: verapamil Not Available Not Available Not Available ondansetron 4 mg disintegratin g tablet active Not Available Not Available Not Available Vitals Date Recorded Body height Body mass index (BMI) Body weight Provider Name and Address Organization Details Last Updated DateTime 03/03/2024 172.72 cm 25.1 kg/m2 75484.74 g Guillermo Lim [facility] 03/03/2024 12:30:51 Social History None recorded. Functional Status None recorded. Mental Status None recorded. Family History Nothing Reported. Medical History No medical history recorded. Past Encounters Encounter ID Performer Location Encounter Start Date Encounter Closed Date Diagnosis/Indication Diagnosis SNOMED-CT Code Diagnosis ICD10 Code Diagnosis Note [id number] EDGARD VERDIN MD [facility] [address] [place] [address] 03/03/2024 11:34:12 03/03/2024 12:49:27 Vocal cord paralysis 824692126 J38.01 Laryngosoc py notable for increased bulk. R cord is still paralyzed. He got a good result. I recommend he f/u in 6 months and call me sooner if his voice worsens. Chronic hoarseness 90387 [id number] 105 R49.0 improved since surgery but still hoarse Health Concerns Section Related Observation LastModified by Organization Detai ls LastModified Time None Recorded Concern Status LastModified by Organization Details LastModified Time None Recorded Advance Directives Directive None Recorded Payers Encounter Date Sequence Insurance Name Policy Number Policy Jeter Covered Member ID Jeter Member ID Guarantor Name 03/03/2024 1 [employer] - MEDICARE ADVANTAGE PLAN (MEDICARE REPLACEMENT HMO) [id number] Yoseph Orellana [id number] Yoseph Orellana
--- OUTSIDE RECORDS SUMMARY | 2024-08-23 15:50 | XMS_ITS | Patient Health Record ---
Author Organization Matthew Hirsch DO, FACP Address [address], [place] [id number] Care Team Providers Care Data Analytics Architect Name Role Phone Matthew Hirsch Primary Care Provider [phone] ALLERGIES No Known Allergies RESULTS Component Value Reference Range Notes PET CT fusion skull to thigh Reviewed date:09/18/2023 05:16:53 PM Interpretation:Abnormal Performing Lab: Notes/Report: [address] [address] PET Report Signed Patient: Yoseph Orellana MR#: [id number] : 1945 Acct:[id number] Age/Sex: 78 / M ADM Date: 09/15/23 Loc: .PET Attending Dr: Isabella Brooks MD Ordering Physician: Isabella Brooks MD Date of Service: 09/15/23 Procedure(s): PET CT fusion skull to thigh Accession Number(s): [id number] cc: Isabella Brooks MD; Matthew Hirsch DO [...] in OV> 09/18/23 1257 DD/ 1030 TD/TT: Lime Sludge Mixer: DAWOOD Prostate Specific Antigen Reviewed date:09/29/2023 12:25:21 PM Interpretation:Undetectable Performing Lab:[facility], [address] [place] [phone] Notes/Report: Prostate Specific Antigen < 0.10 <0.05-4.0 ng/mL PSA methodology: Richard Alinity i Chemiluminescent Microparticle Immunoassay (CMIA) Complete Blood Count Auto Di ff Reviewed date:10/14/2023 04:33:51 PM Interpretation:Normal Performing Lab:[facility], [address] [place] [phone] Notes/Report: White Blood Count 6.8 4.8-10.8 X10*3/uL [...] Panel Reviewed date:10/14/2023 04:34:57 PM Interpretation:Abnormal Performing Lab:[facility], [address] [place] [phone] Notes/Report: Sodium 142 135-145 mmol/L Potassium 3.8 [...] Glomerular Filt Rate > 60 NOTE: For -Togolese individuals, multiply the result by 1.210. Chronic [...] Panel Reviewed date:11/19/2023 10:35:14 AM Interpretation:Normal Performing Lab:[address] [address] Notes/Report: Sodium 143 135-145 mmol/L Potassium 4.6 3.3-5.1 mmol/L Chloride 108 96-108 mmol/L Carbon Dioxide 29 22-29 mmol/L Anion Gap 11 12-20 Blood Urea Nitrogen 11 9-16 mg/dL Creatinine 1.28 0.5-1.4 mg/dL Estimated Glomerular Filt Rate 54 NOTE: For -Togolese individuals, multiply the result by 1.210. Chronic Kidney Disease: Estimated GFR < 60 mL/min/1.73m2 Severe Kidney Disease: Estimated GFR < 15 mL/min/1.73m2 Glucose Random 89 60-115 mg/dL Calcium 9.4 8.4-10.2 mg/dL Complete Blood Count Auto Di ff Reviewed date:11/19/2023 08:53:06 AM Interpretation:Normal Performing Lab:[address] [address] Notes/Report: White Blood Count 5.0 4.8-10.8 X10*3/uL [...] ff Reviewed date:01/01/2024 01:07:57 PM Interpretation:Normal Performing Lab:[facility], [address] [place] [phone] Notes/Report: White Blood Count 8.3 4.8-10.8 X10*3/uL [...] INR Reviewed date:01/01/2024 12:55:22 PM Interpretation:Normal Performing Lab:[address] [address] Notes/Report: Prothrombin Time 12.6 11.1-13.3 [employer] [...] Panel Reviewed date:01/01/2024 01:09:00 PM Interpretation:Normal Performing Lab:[address] [address] Notes/Report: Bilirubin Total 0.5 0.0-1.0 mg/dL Bilirubin Direct 0.2 0.0-0.5 mg/dL Aspartate Amino Transferase 17 5-37 U/L Alanine Aminotransferase 11 0-40 U/L Total Protein 6.9 6.5-8.0 g/dL Albumin Level 3.7 3.5-5.0 g/dL Alkaline Phosphatase 99 39-117 U/L Basic Metabolic Panel Fastin g Reviewed date:01/01/2024 01:09:00 PM Interpretation:Normal Performing Lab:[facility], [address] [place] [phone] Notes/Report: Sodium 141 135-145 mmol/L Potassium 4.2 [...] Glomerular Filt Rate > 60 NOTE: For -Togolese individuals, multiply the result by 1.210. Chronic Kidney Disease: Estimated GFR < 60 mL/min/1.73m2 Severe Kidney Disease: Estimated GFR < 15 mL/min/1.73m2 Glucose Fasting 81 60-99 mg/dL Calcium 9.2 8.4-10.2 mg/dL Magnesium Reviewed date:01/01/2024 01:09:00 PM Interpretation:Normal Performing Lab:[facility], [address] [place] [phone] Notes/Report: Magnesium 2.1 1.6-2.6 mg/dL Lipase Reviewed date:01/01/2024 01:09:00 PM Interpretation:Normal Performing Lab:[facility], [address] [place] [phone] Notes/Report: Lipase 15 8-78 U/L CT chest w con Reviewed date:01/02/2024 11:16:28 AM Interpretation:Abnormal Performing Lab: Notes/Report: [address] [address] [address] Scan Report Signed Patient: Yoseph Orellana MR#: [id number] : 1945 Acct:[id number] Age/Sex: 78 / M ADM Date: 01/01/24 Loc: HO.ED Attending Dr: Ordering Physician: Rebecca Alvarenga DO Date of Service: 01/01/24 Procedure(s): CT chest w IV con Accession Number(s): [id number] cc: Rebecca Alvarenga DO; Matthew Hirsch DO [...] in OV> 01/01/24 1640 DD/ 1510 TD/TT: Lime Sludge Mixer: CT abdomen pelvis w con Reviewed date:01/02/2024 11:17:42 AM Interpretation:Abnormal Performing Lab: Notes/Report: [address] [address] [address] Scan Report Signed Patient: Yoseph Orellana MR#: [id number] : 1945 Acct:[id number] Age/Sex: 78 / M ADM Date: 01/01/24 Loc: .ED Attending Dr: Ordering Physician: Rebecca Alvarenga DO Date of Service: 01/01/24 Procedure(s): CT abdomen pelvis w IV con Accession Number(s): [id number] cc: Rebecca Alvarenga DO; Matthew Hirsch DO [...] in OV> 01/01/24 1640 DD/ 1510 TD/TT: Lime Sludge Mixer: Complete Blood Count Auto Di ff Reviewed date:03/19/2024 10:24:02 PM Interpretation:Abnormal Performing Lab:[facility], [address] [place] [phone] Notes/Report: White Blood Count 8.5 4.8-10.8 X10*3/uL [...] Panel Reviewed date:03/19/2024 10:24:02 PM Interpretation:Normal Performing Lab:[facility], [address] [place] [phone] Notes/Report: Bilirubin Total 0.3 0.0-1.0 mg/dL Bilirubin Direct 0.1 0.0-0.5 mg/dL Aspartate Amino Transferase 20 5-37 U/L Alanine Aminotransferase 14 0-40 U/L Total Protein 6.8 6.5-8.0 g/dL Albumin Level 3.8 3.5-5.0 g/dL Alkaline Phosphatase 90 39-117 U/L Basic Metabolic Panel Reviewed date:03/19/2024 10:24:02 PM Interpretation:Abnormal Performing Lab:[facility], [address] [place] [phone] Notes/Report: Sodium 143 135-145 mmol/L Potassium 3.7 [...] Glomerular Filt Rate > 60 NOTE: For -Togolese individuals, multiply the result by 1.210. Chronic Kidney Disease: Estimated GFR < 60 mL/min/1.73m2 Severe Kidney Disease: Estimated GFR < 15 mL/min/1.73m2 Glucose Random 107 60-115 mg/dL Calcium 8.8 8.4-10.2 mg/dL Magnesium Reviewed date:03/19/2024 10:24:02 PM Interpretation:Normal Performing Lab:[facility], [address] [place] [phone] Notes/Report: Magnesium 2.2 1.6-2.6 mg/dL Lipase Reviewed date:03/19/2024 10:24:02 PM Interpretation:Normal Performing Lab:[facility], [address] [place] [phone] Notes/Report: Lipase 28 8-78 U/L UA ClnCatch+Micro w/rflx Cul t Reviewed date:03/20/2024 02:08:31 PM Interpretation:Abnormal Performing Lab:[facility], [address] [place] [phone] Notes/Report: Urine, Dia Port Color Urine Yellow Appearance Urine Clear PH 7.0 5.0-9.0 Glucose Urine UA Negative Negative mg/dL Urine Blood Negative Negative Specific [place] - Urine 1.010 1.005-1.025 Urine Protein Trace [...] date:03/21/2024 10:19:46 AM Interpretation:Abnormal Performing Lab: Notes/Report: [address] [address] [address] Scan Report Signed Patient: Yoseph Orellana MR#: [id number] : 1945 Acct:[id number] Age/Sex: 78 / M ADM Date: 03/19/24 Loc: .ED Attending Dr: Ordering Physician: Nina North Date of Service: 03/19/24 Procedure(s): CT abdomen pelvis wo IV con Accession Number(s): [id number] cc: Matthew Hirsch DO; Nina North EXAMINATION: [...] MD in OV> 03/19/242208 DD/ 55 TD/TT: Lime Sludge Mixer: Complete Blood Count Auto Di ff Reviewed date:03/20/2024 02:08:31 PM Interpretation:Abnormal Performing Lab:[facility], [address] [place] [phone] Notes/Report: White Blood Count 8.1 4.8-10.8 X10*3/uL [...] Panel Reviewed date:03/20/2024 02:08:31 PM Interpretation:Abnormal Performing Lab:[address] [address] Notes/Report: Sodium 141 135-145 mmol/L Potassium 3.7 [...] Glomerular Filt Rate > 60 NOTE: For -Togolese individuals, multiply the result by 1.210. Chronic Kidney Disease: Estimated GFR < 60 mL/min/1.73m2 Severe Kidney Disease: Estimated GFR < 15 mL/min/1.73m2 Glucose Random 90 60-115 mg/dL Calcium 9.0 8.4-10.2 mg/dL Respiratory Panel Reviewed date:05/26/2024 11:19:42 AM Interpretation:Negative Performing Lab:[address] [address] Notes/Report: Adenovirus PCR Not Detected Not Detect. [...] testing should be considered. Results reported to [facility]. This test has been authorized by the [...] is performed by Multiplexed PCR, utilizing the [employer] Array. COVID-19 ID NOW (aaTag) Reviewed date:05/26/2024 11:19:42 AM Interpretation:Negative Performing Lab:[facility], [address] [place] [phone] Notes/Report: IDNOW Serial# [id number] COVID-19 Test Negative Negative COVID-19 Note See [...] with other viruses. Testing facilities within the [facility] and its territories are required to report [...] by authorized laboratories. Testing performed on the [employer] NOW utilizing NAAT. Lactic Acid-LAB USE ONLY Reviewed date:05/25/2024 03:42:28 PM Interpretation:Normal Performing Lab:[facility], [address] [place] [phone] Notes/Report: Lactic Acid-LAB USE ONLY 1.3 0.5-2.0 mmol/L CT abdomen pelvis wo con Reviewed date:05/25/2024 05:14:53 PM Interpretation:Abnormal Performing Lab: Notes/Report: [address] [address] [address] Scan Report Signed Patient: Yoseph Orellana MR#: [id number] : 1945 Acct:[id number] Age/Sex: 78 / M ADM Date: 05/25/24 Loc: HO.ED Attending Dr: Ordering Physician: José Oglesby MD Date of Service: 05/25/24 Procedure(s): CT abdomen pelvis wo IV con Accession Number(s): [id number] cc: José Oglesby MD; Matthew Hirsch DO [...] 05/25/24 1513 DD/ 1117 TD/TT: 05/25/24 1147 Lime Sludge Mixer: XR chest 1V Reviewed date:05/25/2024 02:49:29 PM Interpretation:Nonacute Performing Lab: Notes/Report: [address] [address] XRay Report Signed Patient: Yoseph Orellana MR#: [id number] : 1945 Acct:[id number] Age/Sex: 78 / M ADM Date: 05/25/24 Loc: .ED Attending Dr: Ordering Physician: José Oglesby MD Date of Service: 05/25/24 Procedure(s): XR chest 1V Accession Number(s): [id number] cc: José Oglesby MD; Matthew Hirsch DO [...] 05/25/24 1413 DD/ 1200 TD/TT: 05/25/24 1210 Lime Sludge Mixer: Complete Blood Count no Diff Reviewed date:05/26/2024 11:19:42 AM Interpretation:Abnormal Performing Lab:[facility], [address] [place] [phone] Notes/Report: White Blood Count 16.4 4.8-10.8 X10*3/uL [...] Panel Reviewed date:05/26/2024 11:19:42 AM Interpretation:Abnormal Performing Lab:[address] [address] Notes/Report: Sodium 142 135-145 mmol/L Potassium 4.1 [...] Glomerular Filt Rate > 60 NOTE: For -Togolese individuals, multiply the result by 1.210. Chronic Kidney Disease: Estimated GFR < 60 mL/min/1.73m2 Severe Kidney Disease: Estimated GFR < 15 mL/min/1.73m2 Glucose Random 142 60-115 mg/dL Calcium 8.9 8.4-10.2 mg/dL Complete Blood Count no Diff Reviewed date:05/27/2024 10:50:31 AM Interpretation:Abnormal Performing Lab:[facility], [address] [place] [phone] Notes/Report: White Blood Count 9.8 4.8-10.8 X10*3/uL [...] Panel Reviewed date:05/27/2024 10:50:31 AM Interpretation:Abnormal Performing Lab:[facility], [address] [place] [phone] Notes/Report: Sodium 140 135-145 mmol/L Potassium 3.7 [...] Glomerular Filt Rate > 60 NOTE: For -Togolese individuals, multiply the result by 1.210. Chronic Kidney Disease: Estimated GFR < 60 mL/min/1.73m2 Severe Kidney Disease: Estimated GFR < 15 mL/min/1.73m2 Glucose Random 80 60-115 mg/dL Calcium 8.6 8.4-10.2 mg/dL Complete Blood Count Auto Di ff Reviewed date:06/08/2024 11:14:54 AM Interpretation:Normal Performing Lab:[facility], [address] [place] [phone] Notes/Report: White Blood Count 5.1 4.8-10.8 X10*3/uL [...] Panel Reviewed date:06/08/2024 11:14:54 AM Interpretation:Normal Performing Lab:[facility], [address] [place] [phone] Notes/Report: Sodium 141 135-145 mmol/L Potassium 4.2 3.3-5.1 mmol/L Chloride 105 96-108 mmol/L Carbon Dioxide 26 22-29 mmol/L Anion Gap 14 12-20 Blood Urea Nitrogen 9 9-16 mg/dL Creatinine 1.04 0.5-1.4 mg/dL Estimated Glomerular Filt Rate > 60 NOTE: For -Togolese individuals, multiply the result by 1.210. Chronic [...] date:07/03/2024 04:31:28 PM Interpretation:Nonacute Performing Lab: Notes/Report: [facility] [place] [address] XRay Report Signed Patient: Yoseph Orellana MR#: [id number] : 1945 Acct:[id number] Age/Sex: 78 / M ADM Date: 06/08/24 [facility] Attending Dr: Matthew Hirsch DO Ordering Physician: Matthew Hirsch DO Date of Service: 06/08/24 Procedure(s): XR chest 2V Accession Number(s): [id number] cc: Matthew Hirsch DO EXAMINATION: XR CHEST [...] by: Samuel Becerra MD 07/02/2024 08:08 PM [facility] [place] [place] Dictated By: Samuel Becerra MD Signed By: <Electronically signed by Samuel Becerra MD in OV> 07/02/242007 DD/ 3 TD/TT: 06/08/24845 Lime Sludge Mixer: CT abdomen pelvis wo con Reviewed date:07/01/2024 05:33:29 PM Interpretation:Abnormal Performing Lab: Notes/Report: [address] [address] [address] Scan Report Signed Patient: Yoseph Orellana MR#: [id number] : 1945 Acct:[id number] Age/Sex: 78 / M ADM Date: 07/01/24 Loc: HO.ED Attending Dr: Ordering Physician: Job Zabala MD Date of Service: 07/01/24 Procedure(s): CT abdomen pelvis wo IV con Accession Number(s): [id number] cc: Job Zabala MD; Matthew Hirsch DO [...] by: Tyler Lopez MD 07/01/2024 06:09 AM [facility] [place] [place] Dictated By: Tyler Lopez MD Signed By: <Electronically signed by Tyler Lopez MD in OV> 07/01/24 0609 DD/ 0451 TD/TT: 07/01/24 0502 Lime Sludge Mixer: BRITTANY FL small bowel follow sue [place] Reviewed date:07/01/2024 05:37:15 PM Interpretation:Abnormal Performing Lab: Notes/Report: [address] [address] Fluoroscopy Report Signed Patient: Yoseph Orellana MR#: [id number] : 1945 Acct:[id number] Age/Sex: 78 / M ADM Date: 07/01/24 Loc: .S3 361-[address]: Gamaliel Gilbert MD Ordering Physician: Leonel Alberto MD Date of Service: 07/01/24 Procedure(s): FL small bowel follow through Accession Number(s): [id number] cc: Matthew Hirsch DO; Leonel Alberto MD EXAMINATION: FL SMALL BOWEL SERIES CLINICAL INFORMATION: Rule out complete SBO COMPARISON: None available. Correlation made with CT abdomen and pelvis dated same day, as well as 05/25/2024, and 03/19/2024. TECHNIQUE: Following a qa consultant image of the abdomen, contrast was administered orally, and interval abdominal radiographs were performed to assess for contrast progression through the small bowel. Following contrast transit through the small bowel, multiple overhead radiographs of the abdomen were obtained. FINDINGS: Journeyman Press Operator image of the abdomen demonstrates loops [...] by: Martin Acosta MD 07/01/2024 05:20 PM [facility] [place] [place] Dictated By: Martin Acosta MD Signed By: <Electronically signed by Martin Acosta MD in OV> 07/01/24 1720 DD/ 1420 TD/TT: 07/01/24 1645 Lime Sludge Mixer: XR chest 2V Reviewed date:07/01/2024 05:38:20 PM Interpretation:Abnormal Performing Lab: Notes/Report: [address] [address] XRay Report Signed Patient: Yoseph Orellana MR#: [id number] : 1945 Acct:[id number] Age/Sex: 78 / M ADM Date: 07/01/24 Loc: HO.S3 361-[address]: Gamaliel Gilbert MD Ordering Physician: Catrina Reese Date of Service: 07/01/24 Procedure(s): XR chest 2V Accession Number(s): [id number] cc: Catrina Reese; Matthew Hirsch DO EXAMINATION: [...] 07/01/24 1728 DD/ 1400 TD/TT: 07/01/24 1409 Lime Sludge Mixer: KWABENA Hold Lav - Possible Hematolo gy Reviewed date:07/03/2024 04:36:09 PM Interpretation:Hold Performing Lab:[facility], [address] [place] [phone] Notes/Report: Hold Lav - Possible Hematology SEE NOTE Specimen will be held untested for 8 hours. Call Hematology if testing is desired. Basic Metabolic Panel Reviewed date:07/03/2024 04:35:26 PM Interpretation:Abnormal Performing Lab:[facility], [address] [place] [phone] Notes/Report: Sodium 142 135-145 mmol/L Potassium 4.3 [...] Magnesium Reviewed date:07/03/2024 04:35:26 PM Interpretation:Normal Performing Lab:[facility], [address] [place] [phone] Notes/Report: Magnesium 2.5 1.6-2.6 mg/dL UA ClnCatch+Micro w/rflx Cul t Reviewed date:07/03/2024 04:35:26 PM Interpretation:Abnormal Performing Lab:[facility], [address] [place] [phone] Notes/Report: [id number] Urine, Dia Port Color Urine Yellow Appearance Urine Clear PH 5.0 5.0-9.0 Glucose Urine UA Negative Negative mg/dL Urine Blood Moderate (2+) Negative Specific [place] - Urine 1.010 1.005-1.025 Urine Protein Negative Neg-Trace mg/dL Urine Ketones Negative Negative mg/dL Nitrite Urine Negative Negative Leukocyte Esterase Urine Negative Negative RBC Urine 6-10 0-2 /HPF WBC Urine 0-5 0-5 /HPF Squamous Epithelial Cell Urine 0-2 0-2 /HPF Bacteria Urine None Seen None Seen Hyaline Casts Urine 0-2 0-2 /LPF SARS-CoV2/FLU/RSV Reviewed date:07/03/2024 04:35:26 PM Interpretation:Negative Performing Lab:[facility], [address] [place] [phone] Notes/Report: Influenza A PCR NEGATIVE Negative Influenza [...] by authorized laboratories. Testing performed on the [employer] GeneXpert utilizing real-time RT-PCR. All SARS CoV2 and positive influenza A/B results are reported to [facility]. XR chest 1V Reviewed date:07/03/2024 04:38:23 PM Interpretation:Abnormal Performing Lab: Notes/Report: [address] [place] [address] XRay Report Signed Patient: Yoseph Orellana MR#: [id number] : 1945 Acct:[id number] Age/Sex: 78 / M ADM Date: 07/01/24 Loc: [facility] 479-[address]: Gamaliel Gilbert MD Ordering Physician: Katie Zavala PA-C Date of Service: 07/02/24 Procedure(s): XR chest 1V Accession Number(s): [id number] cc: Matthew Hirsch DO; Katie Zavala PA-C [...] by: Samuel Becerra MD 07/02/2024 08:17 PM [facility] [place] [place] Dictated By: Samuel Becerra MD Signed By: <Electronically signed by Samuel Becerra MD in OV> 07/02/242016 DD/ 1400 TD/TT: 07/02/24 5387 Lime Sludge Mixer: SR Kiran Lav - Possible Hematolo gy Reviewed date:07/03/2024 04:35:48 PM Interpretation:Hold Performing Lab:[facility], [address] [place] [phone] Notes/Report: Hold Lav - Possible Hematology SEE NOTE Specimen will be held untested for 8 hours. Call Hematology if testing is desired. Basic Metabolic Panel Reviewed date:07/03/2024 04:35:26 PM Interpretation:Abnormal Performing Lab:[facility], [address] [place] [address] Notes/Report: Sodium 142 135-145 mmol/L Potassium 4.3 [...] Diff Reviewed date:07/04/2024 11:17:53 AM Interpretation:Abnormal Performing Lab:[facility], [address] [place] [phone] Notes/Report: White Blood Count 15.9 4.8-10.8 X10*3/uL [...] Panel Reviewed date:07/04/2024 11:17:53 AM Interpretation:Abnormal Performing Lab:[facility], [address] [place] [phone] Notes/Report: Sodium 141 135-145 mmol/L Potassium 3.9 [...] Peptide Reviewed date:07/04/2024 11:17:53 AM Interpretation:Normal Performing Lab:[facility], [address] [place] [phone] Notes/Report: B Type Natriuretic Peptide 54 <100 pg/mL For those patients who are being treated with Natrecor (nesiritide, recombinant BNP), BNP testing should be performed at least two hours post treatment in order to ensure that only endogenous levels of BNP are detected. Complete Blood Count no Diff Reviewed date:07/05/2024 09:24:00 AM Interpretation:Abnormal Performing Lab:[facility], [address] [place] [phone] Notes/Report: White Blood Count 12.9 4.8-10.8 X10*3/uL [...] Panel Reviewed date:07/05/2024 09:24:00 AM Interpretation:Abnormal Performing Lab:[facility], [address] [place] [phone] Notes/Report: Sodium 144 135-145 mmol/L Potassium 3.8 [...] date:07/06/2024 04:45:28 PM Interpretation:Abnormal Performing Lab: Notes/Report: [address] [address] XRay Report Signed Patient: Yoseph Orellana MR#: [id number] : 1945 Acct:[id number] Age/Sex: 78 / M ADM Date: 07/01/24 Loc: [facility] 479-[address]: Gamaliel Gilbert MD Ordering Physician: Gamaliel Gilbert MD Date of Service: 07/06/24 Procedure(s): XR chest 1V Accession Number(s): [id number] cc: Gamaliel Gilbert MD; Matthew Hirsch DO [...] by: Martin Acosta MD 07/06/2024 04:32 PM [facility] [place] [place] Dictated By: Martin Acosta MD Signed By: <Electronically signed by Martin Acosta MD in OV> 07/06/24 1632 DD/ 1232 TD/TT: 07/06/24 1241 Lime Sludge Mixer: Hold Lav - Possible Hematolo gy Reviewed date:07/08/2024 11:01:57 AM Interpretation:Hold Performing Lab:[facility], [address] [place] [phone] Notes/Report: Hold Lav - Possible Hematology SEE NOTE Specimen will be held untested for 8 hours. Call Hematology if testing is desired. Basic Metabolic Panel Reviewed date:07/08/2024 11:01:57 AM Interpretation:Abnormal Performing Lab:[facility], [address] [place] [phone] Notes/Report: Sodium 146 135-145 mmol/L Potassium 3.5 [...] Phosphorus Reviewed date:07/08/2024 11:01:57 AM Interpretation:Normal Performing Lab:[facility], [address] [place] [phone] Notes/Report: Phosphorus 3.0 2.7-4.5 mg/dL Magnesium Reviewed date:07/08/2024 11:01:57 AM Interpretation:Normal Performing Lab:[facility], [address] [place] [phone] Notes/Report: Magnesium 2.2 1.6-2.6 mg/dL Basic Metabolic Panel Reviewed date:07/08/2024 11:01:57 AM Interpretation:Abnormal Performing Lab:[facility], [address] [place] [phone] Notes/Report: Sodium 142 135-145 mmol/L Potassium 3.1 [...] Phosphorus Reviewed date:07/08/2024 11:01:57 AM Interpretation:Normal Performing Lab:[facility], [address] [place] [phone] Notes/Report: Phosphorus 3.8 2.7-4.5 mg/dL Magnesium Reviewed date:07/08/2024 11:01:57 AM Interpretation:Normal Performing Lab:[facility], [address] [place] [phone] Notes/Report: Magnesium 2.2 1.6-2.6 mg/dL Albumin Level Reviewed date:07/08/2024 11:01:57 AM Interpretation:Abnormal Performing Lab:[facility], [address] [place] [phone] Notes/Report: Albumin Level 2.3 3.5-5.0 g/dL Complete Blood Count no Diff Reviewed date:07/10/2024 12:04:13 PM Interpretation:Abnormal Performing Lab:[facility], [address] [place] [phone] Notes/Report: White Blood Count 9.5 4.8-10.8 X10*3/uL [...] Panel Reviewed date:07/09/2024 01:18:55 PM Interpretation:Abnormal Performing Lab:[address] [address] Notes/Report: Sodium 137 135-145 mmol/L Potassium 3.2 [...] Phosphorus Reviewed date:07/09/2024 01:18:55 PM Interpretation:Normal Performing Lab:[address] [address] Notes/Report: Phosphorus 3.5 2.7-4.5 mg/dL Magnesium Reviewed date:07/09/2024 01:18:55 PM Interpretation:Normal Performing Lab:[address] [address] Notes/Report: Magnesium 2.1 1.6-2.6 mg/dL B Type Natriuretic Peptide Reviewed date:07/10/2024 12:04:13 PM Interpretation:Abnormal Performing Lab:[address] [address] Notes/Report: B Type Natriuretic Peptide 143 <100 pg/mL For those patients who are being treated with Natrecor (nesiritide, recombinant BNP), BNP testing should be performed at least two hours post treatment in order to ensure that only endogenous levels of BNP are detected. Albumin Level Reviewed date:07/09/2024 01:18:55 PM Interpretation:Abnormal Performing Lab:[facility], [address] [place] [address] Notes/Report: Albumin Level 2.3 3.5-5.0 g/dL Triglycerides Reviewed date:07/09/2024 01:18:55 PM Interpretation:Normal Performing Lab:[facility], [address] [place] [address] Notes/Report: Triglycerides 105 <150 mg/dL Desirable Triglyceride: less than 150 mg/dL Borderline High Triglyceride 150-199 mg/dL High Triglyceride: 200-499 mg/dL Very High Triglyceride: greater than or equal to 5OO mg/dL XR chest 1V Reviewed date:07/09/2024 01:19:45 PM Interpretation:Abnormal Performing Lab: Notes/Report: [address] [address] XRay Report Signed Patient: Yoseph Orellana MR#: [id number] : 1945 Acct:[id number] Age/Sex: 78 / M ADM Date: 07/01/24 Loc: .S3 354-[address]: Noris HUBBARD Ordering Physician: Noris Vora Date of Service: 07/09/24 Procedure(s): XR chest 1V Accession Number(s): [id number] cc: Noris Vora; Matthew Hirsch DO EXAMINATION: [...] by: Samuel Becerra MD 07/09/2024 11:26 AM [facility] [place], [place] Dictated By: Samuel Becerra MD Signed By: <Electronically signed by Samuel Becerra MD in OV> 07/09/24 1126 DD/ 99 TD/TT: 07/09/24 1109 Lime Sludge Mixer: Basic Metabolic Panel Reviewed date:07/10/2024 12:04:13 PM Interpretation:Abnormal Performing Lab:[address] [address] Notes/Report: Sodium 138 135-145 mmol/L Potassium 4.2 [...] Phosphorus Reviewed date:07/10/2024 12:04:13 PM Interpretation:Normal Performing Lab:[address] [address] Notes/Report: Phosphorus 3.5 2.7-4.5 mg/dL Magnesium Reviewed date:07/10/2024 12:04:13 PM Interpretation:Normal Performing Lab:[facility], [address] [place] [address] Notes/Report: Magnesium 2.2 1.6-2.6 mg/dL Albumin Level Reviewed date:07/10/2024 12:04:13 PM Interpretation:Abnormal Performing Lab:[address] [address] Notes/Report: Albumin Level 2.3 3.5-5.0 g/dL Basic Metabolic Panel Reviewed date:07/11/2024 08:52:50 AM Interpretation:Normal Performing Lab:[address] [address] Notes/Report: Sodium 137 135-145 mmol/L Potassium 4.9 [...] Phosphorus Reviewed date:07/11/2024 08:52:50 AM Interpretation:Normal Performing Lab:[address] [address] Notes/Report: Phosphorus 4.0 2.7-4.5 mg/dL Magnesium Reviewed date:07/11/2024 08:52:50 AM Interpretation:Normal Performing Lab:[address] [address] Notes/Report: Magnesium 2.1 1.6-2.6 mg/dL Albumin Level Reviewed date:07/11/2024 08:53:01 AM Interpretation:Abnormal Performing Lab:[address] [address] Notes/Report: Albumin Level 2.5 3.5-5.0 g/dL Hold Lav - Possible Hematolo gy Reviewed date:07/12/2024 09:18:48 AM Interpretation:Hold Performing Lab:[address] [address] Notes/Report: Hold Lav - Possible Hematology SEE NOTE Specimen will be held untested for 8 hours. Call Hematology if testing is desired. Basic Metabolic Panel Reviewed date:07/12/2024 09:18:48 AM Interpretation:Normal Performing Lab:[address] [place] [address] Notes/Report: Unable to obtain KALHOTP Sodium 136 [...] Phosphorus Reviewed date:07/12/2024 09:18:48 AM Interpretation:Abnormal Performing Lab:[facility], [address] [place] [address] Notes/Report: Unable to obtain KALHOTP Phosphorus 4.6 2.7-4.5 mg/dL Magnesium Reviewed date:07/12/2024 09:18:48 AM Interpretation:Normal Performing Lab:[facility], [address] [place] [address] Notes/Report: Unable to obtain KALHOTP Magnesium 2.2 1.6-2.6 mg/dL Albumin Level Reviewed date:07/12/2024 09:18:48 AM Interpretation:Abnormal Performing Lab:[facility], [address] [place] [phone] Notes/Report: Unable to obtain KALHOTP Albumin Level 2.6 3.5-5.0 g/dL Basic Metabolic Panel Reviewed date:07/13/2024 10:30:27 AM Interpretation:Normal Performing Lab:[facility], [address] [place] [address] Notes/Report: Sodium 138 135-145 mmol/L Potassium 4.4 [...] Phosphorus Reviewed date:07/13/2024 10:30:27 AM Interpretation:Normal Performing Lab:[facility], [address] [place] [address] Notes/Report: Phosphorus 4.3 2.7-4.5 mg/dL Magnesium Reviewed date:07/13/2024 10:30:27 AM Interpretation:Normal Performing Lab:[facility], [address] [place] [address] Notes/Report: Magnesium 2.1 1.6-2.6 mg/dL Albumin Level Reviewed date:07/13/2024 10:30:27 AM Interpretation:Abnormal Performing Lab:[facility], [address] [place] [address] Notes/Report: Albumin Level 2.6 3.5-5.0 g/dL CT abdomen pelvis w con Reviewed date:07/24/2024 05:05:44 PM Interpretation:Abnormal Performing Lab: Notes/Report: [address] [address] [address] Scan Report Signed Patient: Yoseph Orellana MR#: [id number] : 1945 Acct:[id number] Age/Sex: 78 / M ADM Date: 07/24/24 Loc: .ED Attending Dr: Ordering Physician: Rebecca Alvarenga DO Date of Service: 07/24/24 Procedure(s): CT abdomen pelvis w IV con Accession Number(s): [id number] cc: Rebecca Alvarenga DO; Matthew Hirsch DO EXAMINATION: CT ABDOMEN AND PELVIS WITH CONTRAST CLINICAL INFORMATION: Abdominal pain, nausea COMPARISON: 07/01/2024 TECHNIQUE: Multidetector volumetric images were obtained from the superior aspect of the liver through the pubic symphysis following administration 85 mL of Omnipaque 350 intravenous contrast. Sagittal and coronal reformatted images were obtained on the technologist's workstation. Oral contrast: No This CT examination was performed using dose optimization techniques as appropriate, variously including the following: *Automated exposure control *Adjustment of mA and/or kV according to patient size (this includes techniques or standardized protocols for targeted exams where dose is matched to indication/reason for exam; i.e. extremities or head) *Use of iterative reconstruction technique DLP: 481 mGy-cm FINDINGS: LUNG BASES: The visualized lung bases are unremarkable. Gastric pull-through surgical changes. This is only partially imaged. LIVER, GALLBLADDER, AND BILIARY TREE: Small subcapsular hepatic cysts unchanged. No new findings. No biliary ductal dilatation. The gallbladder is unremarkable with no evidence of radiopaque gallstones, gallbladder wall thickening, or obvious pericholecystic inflammatory changes. PANCREAS: Unremarkable. SPLEEN: Unremarkable. ADRENAL GLANDS: Unremarkable. KIDNEYS AND URETERS: The kidneys are normal in size, shape, and attenuation. No hydronephrosis, hydroureter, or calculi seen. No perinephric stranding. BLADDER: Unremarkable. GASTROINTESTINAL TRACT: Postsurgical changes. No evidence for any obstruction focal lesion. No acute inflammatory changes. ABDOMINAL WALL: Postsurgical changes without evidence for any definite hernia. Mesh placement. LYMPH NODES: Normal. VASCULAR: Unremarkable. PELVIC VISCERA: Post prostatectomy changes. OSSEOUS STRUCTURES: Unremarkable. CT/CT abdomen pelvis w IV con IMPRESSION: No evidence for any bowel obstruction or acute inflammatory changes. No specific findings to explain patient's symptoms. Fleischner guidelines were followed. Electronically signed by: Tejinder Gamez MD 07/24/2024 01:54 PM EST Dictated By: Tejinder Gamez MD Signed By: <Electronically signed by Tejinder Gamez MD in OV> 07/24/24 1354 DD/ 1138 TD/TT: 07/24/24 1208 Lime Sludge Mixer: SL XR chest 1V Reviewed date:07/24/2024 05:03:35 PM Interpretation:Abnormal Performing Lab: Notes/Report: [address] [address] XRay Report Signed Patient: Yoseph Orellana MR#: [id number] : 1945 Acct:[id number] Age/Sex: 78 / M ADM Date: 07/24/24 Loc: HO.ED Attending Dr: Ordering Physician: Rebecca Alvarenga DO Date of Service: 07/24/24 Procedure(s): XR chest 1V Accession Number(s): [id number] cc: Rebecca Alvarenga DO; Matthew Hirsch DO EXAMINATION: XR CHEST CLINICAL INFORMATION: weakness COMPARISON: 07/09/2024 TECHNIQUE: Portable 10:09 AM view of the chest was obtained. FINDINGS: Port-A-Cath remains in place. Increased markings particularly right greater left upper lung zones measurably improving. Low lung volumes. No discrete mass or infiltrate. No pleural disease. Heart and mediastinal remains stable and within normal limits. XR/XR chest 1V IMPRESSION: As above. Electronically signed by: Tejinder Gamez MD 07/24/2024 12:18 PM [facility] [place], [place] Dictated By: Tejinder Gamez MD Signed By: <Electronically signed by Tejinder Gamez MD in OV> 07/24/24 1218 DD/ 1012 TD/TT: 07/24/24 1019 Lime Sludge Mixer: TIMOTEO Pathology Reviewed date:07/28/2024 07:04:31 PM Interpretation:Benign Performing Lab:[facility], [address] [place] [address] Notes/Report: REASON FOR REFERRAL Reason Esophageal dysphagia Diagnosis 1 Esophageal dysphagia (R13.10) Referral Organization Matthew Mireles, FACP Referring Provider First Name Matthew Referring Provider Last Name Joycelyn Referring Provider Speciality Internal M edicine Referred Provider [facility] [...] Problem Essential hypertensi on (I10) Active confirmed 64143375 Problem Erectile dysfunction , unspecified erectile dysfunction type (N52.9) Active confirmed 838242768 Problem Neuropathy (G62.9) Active confirmed 386 598110 Problem History of prostate cancer (Z85.46) Active confirmed 916326613 Problem Incisional hernia, without obstruction or gangrene (K43.2) Active confirmed 658581235 Problem Hypercholesterolemia (E78.00) Active confirmed 11848323 Problem Esophageal dysphagia (R13.10) Active confirmed 41988672 Problem Allergic rhinitis, unspecified seasonality, unspecified trigger (J30.9) Active confirmed 59576365 Problem Esophageal carcinoma (C15.9) Active confirmed 139508374 Problem Pressure injury of sacral region, stage 1 (L89.151) Active confirmed 345259942 Problem SBO (small bowel obstruction) (K56.609) Active confirmed 772448232 Problem Vocal cord paralysis (J38.00) Active confirmed 570044776 VITAL SIGNS Blood pressure diastolic 58 mm Hg 04/05/2024 Height 64.75 in 04/05/2024 Blood pressure systolic 102 mm Hg 04/05/2024 Weight 164 lbs 04/05/2024 BMI 27.50 kg/m2 04/05/2024 Encounters Encounter Location Date Provider Diagnosis Matthew Hirsch DO, [address] [id number] 01/19/2024 Matthew Hirsch Esophageal dysphagia R13.10 ; Essential hypertension I10 ; Esophageal carcinoma C15.9 and Allergic rhinitis, unspecified seasonality, unspecified trigger J30.9 Matthew Hirsch DO, [address] [id number] 11/17/2023 Matthew Hirsch Esophageal dysphagia R13.10 ; Vocal cord paralysis J38.00 ; Essential hypertension I10 ; Allergic rhinitis, unspecified seasonality, unspecified trigger J30.9 ; SBO (small bowel obstruction) K56.609 ; Erectile dysfunction, unspecified erectile dysfunction type N52.9 and Esophageal carcinoma C15.9 Matthew Hirsch DO, [address] [id number] 04/20/2024 Matthew Hirsch DO, [address] [id number] 07/05/2024 Matthew Hirsch DO, [facility] [address] [place], [place] [id number] 2024 Matthew Hirsch DO, [address] [id number] 04/05/2024 Matthew Hircsh Essential hypertension I10 ; SBO (small bowel obstruction) K56.609 ; Neuropathy G62.9 ; Esophageal dysphagia R13.10 and Allergic rhinitis, unspecified seasonality, unspecified trigger J30.9 Matthew Hirsch DO, [facility] [address] [place], [place] [id number] 09/10/2023 Matthew Hirsch DO, [address] [id number] 10/09/2023 Matthew Hirsch DO, [address] [id number] 10/26/2023 Matthew Hirsch Esophageal carcinoma C15.9 Matthew Hirsch DO, [address] [id number] 01/18/2024 Matthew Hirsch Esophageal dysphagia R13.10 Matthew Hirsch DO, [address] [id number] 01/20/2024 Matthew Hirsch DO, [address] [id number] 01/22/2024 Matthew Hirsch DO, [address] [id number] 02/01/2024 Matthew Hirsch DO, [address] [id number] 02/22/2024 Matthew Hirsch Esophageal carcinoma C15.9 Matthew Hirsch DO, [address] [id number] 04/12/2024 Matthew Hirsch DO, [address] [id number] 04/25/2024 Matthew Hirsch DO, [address] [id number] 05/25/2024 Matthew Hirsch DO, [address] [id number] 06/06/2024 Matthew Hirsch Neuropathy G62.9 Matthew Hirsch DO, [address] [id number] 06/07/2024 Matthew Hirsch DO, [facility] [address] [place], [place] [id number] 07/27/2024 Matthew Joyceyln Matthew Hirsch DO, [address] [id number] 07/29/2024 Matthew Patinoman Matthew Hirsch DO, [address] [id number] 06/03/2024 Matthew Hirsch Aspiration pneumonia , unspecified aspiration pneumonia type, unspecified laterality, unspecified part of lung J69.0 ; Esophageal dysphagia R13.10 ; SBO (small bowel obstruction) K56.609 and Neuropathy G62.9 Matthew Hirsch , [address] [id number] 07/01/2024 Matthew Hirsch ASSESSMENTS Encounter Date Diagnosis [...] Test Name Order Date Electrocardiogram (EKG) 11/17/2023 Insurance Providers Payer Name Payer Address Payer Phone Subscriber Number Group Number Insured Name Patient Relationship to Insured Coverage Start Date Coverage End Date [employer]- MEDICARE [address] [place] [phone] [id number] Yoseph Orellana Self - patient is [...]
== END 2024-08-23 14:12 | disposition home or self-care (01) ==
LOC: HO.HMCSH 13:31
PROVIDERS: PCP Internal Medicine; Visit Provider Internal Medicine
DX: C15.9 Malignant neoplasm of esophagus, unspecified (principal); G62.0 Drug-induced polyneuropathy; T45.1X5A Adverse effect of antineoplastic and immunosuppressive drugs, initial encounter; I10 Essential (primary) hypertension; E78.00 Pure hypercholesterolemia, unspecified

== ENCOUNTER → 2024-08-23 13:31 | Outpatient (BNVA) | payer MEDICARE, SELFPAY | PROVIDERS: PCP Internal Medicine; Visit Provider Internal Medicine | DX: C15.9 Malignant neoplasm of esophagus, unspecified (principal); G62.0 Drug-induced polyneuropathy; T45.1X5A Adverse effect of antineoplastic and immunosuppressive drugs, initial encounter; I10 Essential (primary) hypertension; E78.00 Pure hypercholesterolemia, unspecified | CPT/HCPCS: 99202 ==

== ENCOUNTER 2024-09-28 10:14 | Outpatient (REF) | payer MEDICARE, SELFPAY ==
--- OUTSIDE RECORDS SUMMARY | 2024-09-28 10:48 | XMS_ITS ---
Author Organization Matthew Hirsch DO, [facility] Address [address] [place], [place] [id number] Care Team Providers Care Virtualization Engineer Name Role Phone Matthew Hirsch Primary Care Provider REASON FOR VISIT FYI Encounters Encounter Location Date Provider Diagnosis Matthew Hirsch DO, FACP [address] [place], [place] [phone] 07/27/2024 Matthew Hirsch PLAN OF TREATMENT No Information
--- OUTSIDE RECORDS SUMMARY | 2024-09-28 10:49 | XMS_ITS | Continuity of Care Document ---
Author Organization [place] - [facility], [facility] Address [address] [place] [address] Care Team Providers Care Cartridge Maker Name Role Phone EDGARD MARCELINO Primary Care [...] instructions recorded. Reason for Referral None Reported. Problems Name Problem SNOMED Code Status Onset Date Resolution Date Notes Provider Name and Address Organization Details Recorded Time Vocal cord paralysis 800644251 Active 2023 EDGARD VERDIN MD [address] [place] [address], [place], [address] , [place] - [facility] 12:45:16 Chronic hoarsenes s 95761493821 05 Active 2023 EDGARD VERDIN MD [address] [place] [address], [place], [address] , [place] [facility] 12:45:54 Paralysis of larynx 22031563 Active 2023 Paralysis of vocal cords and larynx, unilatera l; Note: Date Diagnosed : 11/12/2023 1:50 PM (J38.01) Not Available [facility] 02:53:42 Dysphagia 78161986 Active 2023 Dysphagia , unspecifi ed; Note: Date Diagnosed : 11/12/2023 1:50 PM (R13.10) Not Available [facility] 4 02:53:43 Dysphonia 85743521 Active 2023 Other voice and resonance disorders ; Note: Date Diagnosed : 11/12/2023 1:50 PM (R49.8) Not Available [facility] 4 02:53:43 Finding of resonance of voice 103666759 Active 2023 Other voice and resonance disorders ; Note: Date Diagnosed : 11/12/2023 1:50 PM (R49.8) Not Available [facility] 4 02:53:43 History of malignant neoplasm of esophagus 128095069 Active 2023 Personal history of malignant neoplasm of esophagus ; Note: Date Diagnosed : 11/12/2023 1:50 PM (Z85.01) Not Available [facility] 4 02:53:44 Chronic sore throat 411340386 Active 2024 EDGARD VERDIN MD [address] [place] [address] [place], [address] , [place] - [facility] 5 14:23:59 Oropharyn geal dysphagia 36044686 Active 2024 EDGARD VERDIN MD [address] [place] [address], [place], [address] , [place] [facility] 5 14:25:56 Problem Notes None recorded. Procedures Surgical History Date Name Laterality Status Provider Name and Address Organization Details Recorded Time 5 FFL_RE completed EDGARD VERDIN MD [address] [place] [address],[address], [address], [place] - [facility] 09/06/2024 14:23:53 4 FFL_RE completed EDGARD VERDIN MD [address] [place] [address],[address], [address], [place] [facility] 03/03/2024 12:41:19 4 injection of vocal cords completed EDGARD VERDIN MD [address] [place] [address],[address], [address], [place] - [facility] 03/03/2024 12:39:31 Imaging Results None recorded. Procedure Notes None recorded. Medical Equipment None Reported. Medications Name Sig Start Date Stop Date Status Note LastModified by Organization Details LastModified Time amoxicillin 500 mg capsule active Not Available Not Available Not Available lisinopril 20 mg tablet active Medication ID: [id number] Bran d Name: lisinopril Send Method: E-Prescribe d Subs Allowed: subs [place] Medicati onGenericNa me: lisinopril Not Available Not Available Not Available omeprazole 40 mg capsule,delay ed release active Not Available Not Available N ot Available amitriptyline 25 mg tablet active Not Available Not Available Not Available gabapentin 300 mg capsule active Not Available Not Available Not Available verapamil ER (SR) 240 mg tablet,extend ed release active Not Available Not Available N ot Available ondansetron 4 mg disintegratin g tablet active Not Available Not Available Not Available verapamil ER 240 mg 24 hr capsule,exten ded release active Not Available Not Available Not Available amoxicillin 875 mg-potassium clavulanate 125 mg tablet active Not Available Not Availabl e Not Available pregabalin 50 mg capsule active Not Available Not Available N ot Available Vitals Date Recorded Body height Body mass index (BMI) Body weight Provider Name and Address Organization Details Last Updated DateTime 09/06/2024 172.72 cm 25.1 kg/m2 60823.74 g Guillermo Lim [place] - [facility] 09/06/2024 14:06:19 Social History None recorded. Functional Status None recorded. Mental Status None recorded. Family History Nothing Reported. Medical History No medical history recorded. Past Encounters Encounter ID Performer Location Encounter Start Date Encounter Closed Date Diagnosis/Indication Diagnosis SNOMED-CT Code Diagnosis ICD10 Code Diagnosis Note [id number] EDGARD VERDIN MD [facility] [address] [address] 09/06/2024 13:52:52 09/06/2024 14:39:28 Vocal cord paralysis 314463522 J38.01 Laryngosco py notable for R cord is still paralysis with a glottic gap. His voice is still serviceabl e but he has lost some of the bulk of the vocal cord. Given his recent other surgeries we agreed it doesn't make sense to have more surgery at this point. We will observe for now. Chronic hoarseness 64169 [address] 105 R49.0 stable Chronic sore throat 2754 18088 J31.2 no obvious lesion. may be neuropathi c as he has right eye, throat, neck and shoulder pain. I suggested he see a neurologis t. I also discussed a CT scan but we agreed to defer. Oropharyng eal dysphagia 92890809 R13.12 I discussed a repeat swallow study. he is getting swallow therapy and will ask his therapist if they recommend and let me know if that's the case. Otherwise f/u in 6 months. Health Concerns Section Related Observation LastModified by Organization Detai ls LastModified Time None Recorded Concern Status LastModified by Organization Details LastModified Time None Recorded Payers Encounter Date Sequence Insurance Name Policy Number Policy Jeter Covered Member ID Jeter Member ID Guarantor Name 09/06/2024 1 [employer] - MED[employer]ARE ADVANTAGE PLAN (MEDICARE REPLACEMENT HMO) [id number] Yoseph Orellana [id number] Yoseph Orellana Notes Date Note Type Note Provider Name and Address Organization Details Recorded Time 09/06/2024 text/html Hx of right voca l cord paralysis and right injection laryngoplasty 12/09/2024. His voice improved after surgery. He is having a little more vocal fatigue now. He is having more trouble with food going down. He has poor apetite as well. He had a bowel obstruction and had bowel surgery in June. Since then he has not been feeling very well. He has seen GI who did an upper endoscopy and they report no significant abnormality was seen. He reports his throat is chronically sore. He drink 3 bottles of water per day. Denies heartburn. EDGARD VERDIN MD [address] [place] [address], [place], [address], [place] - [facility] 09/06/2024 14:28:19
--- OUTSIDE RECORDS SUMMARY | 2024-09-28 10:49 | XMS_ITS ---
Author Organization [facility] Address [address] [place] [address] Care Team Providers Care Director Of Therapy Services Name Role Phone Joycelyn (RETIRED) Matthew DYER Primary Care Provid er Unavailable Matthew Powell Unavailable [phone] REASON FOR VISIT pathology Encounters Encounter Location Date Provider Diagnosis [facility] [address] [place] [address] 07/29/2024 Matthew Powell PLAN OF TREATMENT No Information
--- OUTSIDE RECORDS SUMMARY | 2024-09-28 10:49 | XMS_ITS ---
Author Organization [facility] Address [address] [place] [address] Care Team Providers Care Outsole Cutter Machine Name Role Phone Joycelyn (RETIRED) Matthew DYER Primary Care Provid er Unavailable Matthew Powell Unavailable [phone] REASON FOR VISIT requesting soon appt pt with dysphagia/hx of esophageal ca Encounters Encounter Location Date Provider Diagnosis [facility] [address] [place] [address] 08/12/2023 Matthew Powell PLAN OF TREATMENT No Information
--- OUTSIDE RECORDS SUMMARY | 2024-09-28 10:49 | XMS_ITS ---
Author Organization Matthew Hirsch DO, FACP Address [address] [place], [place] [id number] Care Team Providers Care Calender Supervisor Name Role Phone Matthew Hirsch Primary Care Provider [phone] Encounters Encounter Location Date Provider Diagnosis Matthew Hirsch DO, FACP [address] [place], [place] [phone] 2024 Matthew Hirsch PLAN OF TREATMENT No Information
--- OUTSIDE RECORDS SUMMARY | 2024-09-28 10:49 | XMS_ITS | Data Portability ---
Author Organization [place] - [facility], Allergy Address [address] [address] Care Team Providers Care Home Appliance Tech Name Role Phone EDGARD MARCELINO Primary Care [...] Organization Details Recorded Time Vocal cord paralysis 150916255 Active 2023 EDGARD VERDIN MD [facility] 100, [place], [address] , [place] [facility] 4 12:45:16 Chronic hoarsenes s 54559735980 05 Active 2023 EDGARD VERDIN MD [facility],[place] [address], [place], [address] , [place] [facility] 4 12:45:54 Paralysis of larynx 91878519 Active 2023 Paralysis of vocal cords and larynx, unilatera l; Note: Date Diagnosed : 11/12/2023 1:50 PM (J38.01) Not Available [facility] 4 02:53:42 Dysphagia 98882646 Active 2023 Dysphagia , unspecifi ed; Note: Date Diagnosed : 11/12/2023 1:50 PM (R13.10) Not Available [facility] 4 02:53:43 Dysphonia 48721462 Active 2023 Other voice and resonance disorders ; Note: Date Diagnosed : 11/12/2023 1:50 PM (R49.8) Not Available [facility] 4 02:53:43 Finding of resonance of voice 977722351 Active 2023 Other voice and resonance disorders ; Note: Date Diagnosed : 11/12/2023 1:50 PM (R49.8) Not Available [facility] 4 02:53:43 History of malignant neoplasm of esophagus 679853869 Active 2023 Personal history of malignant neoplasm of esophagus ; Note: Date Diagnosed : 11/12/2023 1:50 PM (Z85.01) Not Available [facility] 4 02:53:44 Chronic sore throat 403857796 Active 2024 EDGARD VERDIN MD [facility] 100, [place], [address] , [place] [facility] 5 14:23:59 Oropharyn geal dysphagia 80887420 Active 2024 EDGARD VERDIN MD [facility] 100, [place], [address] , [place] [facility] 5 14:25:56 Problem Notes None recorded. Procedures Surgical History Date Name Laterality Status Provider Name and Address Organization Details Recorded Time 5 FFL_RE completed EDGARD VERDIN MD [facility],[address], [address], [facility] - [facility] 09/06/2024 14:23:53 4 FFL_RE completed EDGARD VERDIN MD [facility],[address], [address], [place] [facility] 03/03/2024 12:41:19 4 injection of vocal cords completed EDGARD VERDIN MD [facility],[address], [address], [facility] 03/03/2024 12:39:31 Imaging Results Imaging Date Name Status LastModified by Organiz ation Details LastModified Time 11/03/2023 imaging/diag nostic result completed [email or web address] Information not available 03/30/2024 14:23:42 07/20/2023 imaging/diag [...] lisinopril 20 mg tablet active Medication ID: [id number] Bran d Name: lisinopril Send Method: E-Prescribe [...] Updated DateTime 03/03/2024 172.72 cm 25.1 kg/m2 04636.74 g Guillermo Lim [facility] 03/03/2024 12:30:51 Date Recorded Body height Body mass index (BMI) Body weight Provider Name and Address Organization Details Last Updated DateTime 09/06/2024 172.72 cm 25.1 kg/m2 70026.74 g Guillermo Lim [facility] 09/06/2024 14:06:19 Social History None recorded. Functional Status None recorded. Mental Status None recorded. Family History Nothing Reported. Medical History No medical history recorded. Past Encounters Encounter ID Performer Location Encounter Start Date Encounter Closed Date Diagnosis/Indication Diagnosis SNOMED-CT Code Diagnosis ICD10 Code Diagnosis Note [id number] EDGARD VERDIN MD [facility] [address] [address] 03/03/2024 11:34:12 03/03/2024 12:49:27 Vocal cord paralysis 823405687 J38.01 Laryngosoc py notable for increased bulk. R cord is still paralyzed. He got a good result. I recommend he f/u in 6 months and call me sooner if his voice worsens. Chronic hoarseness 58406 44922 105 R49.0 improved since surgery but still hoarse [id number] EDGARD VERDIN MD [facility] [address] [address] 09/06/2024 13:52:52 09/06/2024 14:39:28 Vocal cord paralysis 468986696 J38.01 Laryngosco py notable for R cord is still paralysis with a glottic gap. His voice is still serviceabl e but he has lost some of the bulk of the vocal cord. Given his recent other surgeries we agreed it doesn't make sense to have more surgery at this point. We will observe for now. Chronic hoarseness 78294 54233 105 R49.0 stable Chronic sore throat 2754 55385 J31.2 no obvious lesion. may be neuropathi c as he has right eye, throat, neck and shoulder pain. I suggested he see a neurologis t. I also discussed a CT scan but we agreed to defer. Oropharyng eal dysphagia 77110761 R13.12 I discussed a repeat swallow study. [...] - MEDICARE ADVANTAGE PLAN (MEDICARE REPLACEMENT HMO) [id number] 04 Yoseph Orellana [id number] Yoseph Orellana 09/06/2024 1 [employer] - MEDICARE ADVANTAGE PLAN (MEDICARE REPLACEMENT HMO) [id number] 04 Yoseph Orellana [id number] Yoseph Orellana Notes Date Note Type Note [...] per day. Denies heartburn. EDGARD VERDIN MD [address] [place] [address], [place], [address], [facility] - [facility] 09/06/2024 14:28:19
--- OUTSIDE RECORDS SUMMARY | 2024-09-28 10:50 | XMS_ITS ---
Author Organization [facility] Address [address] [place] [address] Care Team Providers Care Slunk Skinner Name Role Phone Joycelyn (RETIRED) Matthew DYER Primary Care Provid er Unavailable Matthew Powell Unavailable [phone] ALLERGIES No Known Allergies REASON FOR VISIT [...] Code Notes Problem Hoarseness (R49.0) Active confirmed 38833196 Problem Pharyngeal dysphagia (R13.13) Active confirmed 31071955594851 Problem Chronic cough (R05.3) Active confirmed 56244226 VITAL SIGNS BMI 25.09 kg/m2 08/13/2023 Blood pressure systolic 00 mm Hg 08/13/19 24 Blood pressure diastolic 00 mm Hg 024 Height 68 in 08/13/2023 Temperature 97.7 degrees Fahrenheit 08/13/19 24 Weight 165 lbs 08/13/2023 Encounters Encounter Location Date Provider Diagnosis [facility] [address] [place] [address] 08/13/2023 Matthew Powell Hoarseness R49.0 ; Pharyngeal [...]
--- OUTSIDE RECORDS SUMMARY | 2024-09-28 10:50 | XMS_ITS ---
Author Organization Matthew Hirsch DO, [facility] [address] Address [address] [place] [id number] Care Team Providers Care Dog Trainer Name Role Phone Matthew Hirsch Primary Care Provider REASON FOR VISIT Message Encounters Encounter Location Date Provider Diagnosis Matthew Hirsch DO, FACP [address] [place] [id number] 07/29/2024 Matthew Hirsch PLAN OF TREATMENT No Information
--- OUTSIDE RECORDS SUMMARY | 2024-09-28 10:50 | XMS_ITS | Patient Health Record ---
Author Organization [facility] Address [address] [place] [address] Care Team Providers Care Boiling Off Winder Name Role Phone Joycelyn (RETIRED) Matthew DYER Primary Care Provi alfredito Unavailable Andre Matthew Unavailable [phone] ALLERGIES No Known Allergies RESULTS Component Value Reference Range Notes Pathology Reviewed date:07/29/2024 07:52:21 AM Interpretation: Performing Lab:[facility], [address] [place] [id number] Notes/Report: REASON FOR REFERRAL No Information MEDICATIONS [...] Notes Problem Esophageal dysphagia (R13.10) Active confirmed 35783967 Problem Gastroesophageal reflux disease, esophagitis presence not specified (K21.9) Active confirmed 743113337 Problem Abnormal upper gastrointestinal barium series (R93.3) Active confirmed 564873507 Problem 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) Active confirmed 522928857 Problem History of esophageal cancer (Z85.01) Active confirmed 516928141 Problem Small bowel obstruction (K56.609) Active confirmed 506564112 Problem Constipation, unspecified constipation type (K59.00) Active confirmed 17399571 Problem Dysphagia (R13.10) Active confirmed Dys phagia (02611416) Problem Personal history of malignant neoplasm of esophagus (Z85.01) Active confirmed History of malignant neoplasm of esophagus (015583708) Problem Hoarseness (R49.0) Active confirmed 502 73337 Problem Pharyngeal dysphagia (R13.13) Active confirmed 07081514300194 Problem Chronic cough (R05.3) Active confirmed 49886601 Problem Anorexia (R63.0) Active confirmed Anore kirstie (56299308) Encounters Encounter Location Date Provider Diagnosis [facility] [address] [place] [address] 07/29/2024 Matthew Powell PLAN OF TREATMENT Pending [...] Insured Coverage Start Date Coverage End Date [facility] [address] [facility] [phone] [id number] FUAD FERRELL Self - patient is the insured MEDICAL (GENERAL) HISTORY Medical History History ICD Code Denies IA,DM,CVA,Lung disease,renal dise ase Prostate cancer--surgery as below HTN Hyperlipidemia Negative screening colonoscopies in 1998 and in 2009 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 Brooks--surgery with Dr. Garvey at [facility] 02/2019 SBO 02/2020--treated with [...]
[2024-09-28 14:08] LABS: Prostate Specific Antigen < 0.10 ng/mL (<0.05-4.0)
== END 2024-09-28 10:15 | disposition home or self-care (01) ==
LOC: HO.HMGCLDS 10:14
PROVIDERS: PCP Internal Medicine; Visit Provider Physician Assistant
DX: C61 Malignant neoplasm of prostate (principal); Z12.5 Encounter for screening for malignant neoplasm of prostate
CPT/HCPCS: 36415; 84153

== ENCOUNTER 2024-10-10 12:50 | Outpatient (REF) | payer MEDICARE, SELFPAY ==
--- NOTE | ~2024-10-10 | CT_ITS ---
CLINICAL HISTORY: neck pain, difficulty swallowing CT chest with contrast Comparison: None Findings: The heart is normal size. There is a poorly defined mass within the right paratracheal region with an estimated size of 4.8 x 4.0 x 3.8 cm. Mass effect on and likely invasion of the right lateral aspect of the trachea. Mild associated narrowing. Mild thickening of the adjacent anterior wall of the esophagus. Mass effect on and possible partial encasement of the right internal jugular and innominate veins. There is mass effect on the right lobe of the thyroid gland without evidence of involvement. There are postsurgical changes of the distal esophagus with gastric pull-through. Mild dependent changes within the lungs. No consolidation or pleural effusion. 6 mm nodular focus associated with the left major fissure (3, 23 ). There is a right-sided central venous port within the superior vena cava. There is contrast within the renal collecting systems. There are multiple small peripelvic cysts within the kidneys. No acute fractures. IMPRESSION: 1. 4.8 cm mass within the right paratracheal region, compatible with malignancy, likely on the basis of metastatic disease. Mass effect on and possible invasion of the trachea. Possible invasion of the esophagus. Mass effect on and possible partial encasement of the right internal jugular and innominate veins. 2. There is a 6 mm nodular focus associated with the left major fissure. Recommend follow-up evaluation. This document has been electronically signed by: Nisha Alan MD on 10/10/2024 16:14:06
--- NOTE | ~2024-10-10 | CT_ITS ---
.EXAMINATION: CT SOFT TISSUE NECK WITH CONTRAST CLINICAL INFORMATION: Esophageal cancer. Pain. Dysphagia. COMPARISON: Correlated to CT guided biopsy November 28, 2021. TECHNIQUE: Following the intravenous administration of 60 mL of Omnipaque 350 intravenous contrast, helical imaging was performed in the axial plane with generation of coronal and sagittal reformatted images. This CT examination was performed using dose optimization techniques as appropriate, variously including the following: *Automated exposure control *Adjustment of mA and/or kV according to patient size (this includes techniques or standardized protocols for targeted exams where dose is matched to indication/reason for exam; i.e. extremities or head) *Use of iterative reconstruction technique. DLP: 224.9 mGy centimeter. FINDINGS: There is an irregularly-shaped increased density surrounding the right brachiocephalic trunk the right CCA, right subclavian artery origin the origin of the right vertebral artery up to the level of the thyroid cartilage. There is an intraluminal filling defect within the right internal jugular vein extending from the hyoid bone to the cricoid cartilage. The carotid arteries, vertebral arteries are grossly patent. Skull base, nasopharynx, oropharynx, hypopharynx, retropharynx demonstrated no gross masses or fluid collections. Wet Plant Operator spaces parapharyngeal spaces and carotid base is demonstrated no gross masses. There is volume loss of the right true vocal cord. There is soft tissue attenuation in the posterior bernadette epiglottic region/cricoid cartilage and the included upper cervical esophagus. There is a prominent vessel along the right true vocal cord region. Cervical spondylosis C4-5 C5-6 levels. Right-sided Port-A-Cath reservoir in the anterior upper right hemithorax deep is not fully included.. CT/CT soft tissue neck w IV con IMPRESSION: Nonocclusive thrombosis, right internal jugular vein. Post radiation treatment versus mass/neoplasm involving the right brachiocephalic trunk, origin right subclavian artery right CCA and right vertebral artery and likely the posterior epiglottic/cricoid enhancement in the cervical esophagus. Findings communicated via [email or web address] to the requesting physician, Dr. Isabella Brooks, at 3:47 PM on October 10, 2024.. Electronically signed by: Gabe Nash MD 10/10/2024 03:54 PM [facility] [place]
[2024-10-10] MEDS: iohexoL 350 MG/ML 100 ML INFUS..BTL IV (14:34)
--- OUTSIDE RECORDS SUMMARY | 2024-10-10 15:02 | XMS_ITS | Patient Health Record ---
Author Organization [facility] Address [address] [place] [address] Care Team Providers Care Rn Plastic Surgery Name Role Phone Joycelyn (RETIRED) Matthew DYER Primary Care Provi alfredito Unavailable Andre Matthew Unavailable [phone] ALLERGIES No Known Allergies RESULTS Component Value Reference Range Notes Pathology Reviewed date:07/29/2024 07:52:21 AM Interpretation: Performing Lab: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) Active confirmed 651286064 Problem Anorexia (R63.0) Active confirmed Anore kirstie (84255630) Problem Personal history of malignant neoplasm of esophagus (Z85.01) Active confirmed History of malignant neoplasm of esophagus (026857568) Problem Dysphagia (R13.10) Active confirmed Dys phagia (91135178) Problem Gastroesophageal reflux disease, esophagitis presence not specified (K21.9) Active confirmed 000880670 Problem Abnormal upper gastrointestinal barium series (R93.3) Active confirmed 985363867 Problem Constipation, unspecified constipation type (K59.00) Active confirmed 49095455 Problem Pharyngeal dysphagia (R13.13) Active confirmed 89202124729648 Problem History of esophageal cancer (Z85.01) Active confirmed 691018136 Problem Hoarseness (R49.0) Active confirmed 502 19189 Problem Esophageal dysphagia (R13.10) Active confirmed 61674655 Problem Small bowel obstruction (K56.609) Active confirmed 774934935 Problem Chronic cough (R05.3) Active confirmed 85591072 Encounters Encounter Location Date Provider Diagnosis [facility] [address] [place] [address] 07/29/2024 Matthew Powell PLAN OF TREATMENT Pending [...] Insured Coverage Start Date Coverage End Date [facility] [address] [facility] [phone] [id number] FUAD FERRELL Self - patient is the insured MEDICAL (GENERAL) HISTORY Medical History History ICD Code Denies [place],DM,CVA,Lung disease,renal dise ase Prostate cancer--surgery as below HTN Hyperlipidemia Negative screening colonoscopies in 1998 and in 2009 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 Brooks--surgery with Dr. Garvey at [place] 02/2019 SBO 02/2020--treated with NG tube--normal SB [...]
--- OUTSIDE RECORDS SUMMARY | 2024-10-10 15:02 | XMS_ITS ---
Author Organization [facility] Address [address] [place] [address] Care Team Providers Care Communications Representative Name Role Phone Joycelyn (RETIRED) Matthew DYER Primary Care Provid er Unavailable Matthew Powell Unavailable [phone] ALLERGIES No Known Allergies REASON FOR VISIT [...] Code Notes Problem Hoarseness (R49.0) Active confirmed 38788966 Problem Pharyngeal dysphagia (R13.13) Active confirmed 51926496178027 Problem Chronic cough (R05.3) Active confirmed 04395790 VITAL SIGNS Temperature 97.7 degrees Fahrenheit 08/13/19 24 Blood pressure systolic 00 mm Hg 08/13/19 24 Blood pressure diastolic 00 mm Hg 024 Height 68 in 08/13/2023 Weight 165 lbs 08/13/2023 BMI 25.09 kg/m2 08/13/2023 Encounters Encounter Location Date Provider Diagnosis [facility] [address] [place] [address] 08/13/2023 Matthew Powell Hoarseness R49.0 ; Pharyngeal [...]
--- OUTSIDE RECORDS SUMMARY | 2024-10-10 15:02 | XMS_ITS ---
Author Organization [facility] Address [address] [place] [address] Care Team Providers Care Practice Advisor Name Role Phone Joycelyn (RETIRED) Matthew DYER Primary Care Provid er Unavailable Matthew Powell Unavailable [phone] REASON FOR VISIT pathology Encounters Encounter Location Date Provider Diagnosis [facility] [address] [place] [address] 07/29/2024 Matthew Powell PLAN OF TREATMENT No Information
--- OUTSIDE RECORDS SUMMARY | 2024-10-10 15:02 | XMS_ITS | Data Portability ---
Author Organization [place] - [facility], Allergy Address [address] [address] Care Team Providers Care Peeler Operator Name Role Phone EDGARD AMRCELINO Primary Care Provider Assessment No assessment recorded. 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, unilatera l; Note: Date Diagnosed : 11/12/2023 1:50 PM (J38.01) Not Available [facility] 4 02:53:42 Dysphagia 87985924 Active 2023 Dysphagia , unspecifi ed; Note: Date Diagnosed : 11/12/2023 1:50 PM (R13.10) Not Available [facility] 4 02:53:43 Dysphonia 90194337 Active 2023 Other voice and resonance disorders ; Note: Date Diagnosed : 11/12/2023 1:50 PM (R49.8) Not Available [facility] 4 02:53:43 Finding of resonance of voice 111717631 Active 2023 Other voice and resonance disorders ; Note: Date Diagnosed : 11/12/2023 1:50 PM (R49.8) Not Available [facility] 4 02:53:43 History of malignant neoplasm of esophagus 673508043 Active 2023 Personal history of malignant neoplasm of esophagus ; Note: Date Diagnosed : 11/12/2023 1:50 PM (Z85.01) Not Available [facility] 4 02:53:44 Chronic sore throat 832328186 Active 2024 EDGARD VERDIN MD 100 [facility] 100, [place], [address] , [place] [facility] 5 14:23:59 Oropharyn geal dysphagia 47364975 Active 2024 EDGARD VERDIN MD 100 [facility] 100, [place], [address] , [place] [facility] 5 14:25:56 Problem Notes None recorded. Procedures Surgical History Date Name Laterality Status Provider Name and Address Organization Details Recorded Time 5 FFL_RE completed EDGARD VERDIN MD 100 [facility],[address], [address], [facility] - [facility] 09/06/2024 14:23:53 4 FFL_RE completed EDGARD VERDIN MD 100 [facility],[address], [address], [place] - [facility] 03/03/2024 12:41:19 4 injection of vocal cords completed EDGARD VERDIN MD 100 [facility],[address], [address], [facility] 03/03/2024 12:39:31 Imaging Results Imaging Date Name Status LastModified by Organiz ation Details LastModified Time 11/03/2023 imaging/diag nostic result completed [email or web address] Information not available 03/30/2024 14:23:42 07/20/2023 imaging/diag [...] lisinopril 20 mg tablet active Medication ID: [id number] Bran d Name: lisinopril Send Method: E-Prescribe [...] Updated DateTime 03/03/2024 172.72 cm 25.1 kg/m2 83278.74 g Guillermo Lim [facility] 03/03/2024 12:30:51 Date Recorded Body height Body mass index (BMI) Body weight Provider Name and Address Organization Details Last Updated DateTime 09/06/2024 172.72 cm 25.1 kg/m2 60239.74 g Guillermo Lim [facility] 09/06/2024 14:06:19 Social History None recorded. Functional Status None recorded. Mental Status None recorded. Family History Nothing Reported. Medical History No medical history recorded. Past Encounters Encounter ID Performer Location Encounter Start Date Encounter Closed Date Diagnosis/Indication Diagnosis SNOMED-CT Code Diagnosis ICD10 Code Diagnosis Note [id number] EDGARD VERDIN MD [facility] [address] [address] 03/03/2024 11:34:12 03/03/2024 12:49:27 Vocal cord paralysis 075294142 J38.01 Laryngosoc py notable for increased bulk. R cord is still paralyzed. He got a good result. I recommend he f/u in 6 months and call me sooner if his voice worsens. Chronic hoarseness 86100 96889 105 R49.0 improved since surgery but still hoarse [id number] EDGARD VERDIN MD [facility] [address] [address] 09/06/2024 13:52:52 09/06/2024 14:39:28 Vocal cord paralysis 699678746 J38.01 Laryngosco py notable for R cord is still paralysis with a glottic gap. His voice is still serviceabl e but he has lost some of the bulk of the vocal cord. Given his recent other surgeries we agreed it doesn't make sense to have more surgery at this point. We will observe for now. Chronic hoarseness 24941 15559 105 R49.0 stable Chronic sore throat 2754 25620 J31.2 no obvious lesion. may be neuropathi c as he has right eye, throat, neck and shoulder pain. I suggested he see a neurologis t. I also discussed a CT scan but we agreed to defer. Oropharyng eal dysphagia 51483846 R13.12 I discussed a repeat swallow study. [...] - MEDICARE ADVANTAGE PLAN (MEDICARE REPLACEMENT HMO) [id number] 04 Yoseph Orellana [id number] Yoseph Orellana 09/06/2024 1 [employer] - MEDICARE ADVANTAGE PLAN (MEDICARE REPLACEMENT HMO) [id number] 04 Yoseph Orellana [id number] Yoseph Orellana Notes Date Note Type Note [...] per day. Denies heartburn. EDGARD VERDIN MD [address] [place] [address], [place], [address], [facility] - [facility] 09/06/2024 14:28:19
--- OUTSIDE RECORDS SUMMARY | 2024-10-10 15:02 | XMS_ITS ---
Author Organization [facility] Address [address] [place] [address] Care Team Providers Care Bottom Presser Name Role Phone Joycelyn (RETIRED) Matthew DYER Primary Care Provid er Unavailable Matthew Powell Unavailable [phone] REASON FOR VISIT requesting soon appt pt with dysphagia/hx of esophageal ca Encounters Encounter Location Date Provider Diagnosis [facility] [address] [place] [address] 08/12/2023 Matthew Powell PLAN OF TREATMENT No Information
--- NOTE | 2024-10-10 15:55 | PM.EVENT ---
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 Patient has MediPort on that side, clot could be related to this. He is being started on Eliquis. Patient was also advised to come to the office tomorrow, 10 a.m. appointment was given.
== END 2024-10-10 12:51 | disposition home or self-care (01) ==
LOC: HO.CT 12:50
PROVIDERS: PCP Internal Medicine; Visit Provider Internal Medicine
DX: C15.9 Malignant neoplasm of esophagus, unspecified (principal)
CPT/HCPCS: 70491; 71260; Q9967

== ENCOUNTER → 2024-10-10 12:52 | Outpatient (BNV) | payer MEDICARE, SELFPAY | PROVIDERS: PCP Internal Medicine; Visit Provider Radiology Diagnostic Radiology | DX: I82.C11 Acute embolism and thrombosis of right internal jugular vein (principal); R91.8 Other nonspecific abnormal finding of lung field | CPT/HCPCS: 70491; 71260 ==

== ENCOUNTER 2024-10-11 14:12 | Outpatient (AMB) | payer MEDICARE, SELFPAY ==
--- NOTE | 2024-10-11 14:12 | MHC.PC.OV ---
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 GERD (gastroesophageal reflux disease) Constipation Throat mass Mass of right side of neck Personal history of nicotine dependence History of prostate cancer (~2004) History of small bowel obstruction (~2019) Shingles Vitamin B12 deficiency Diverticulosis (~1998) Osteoarthritis Basal cell carcinoma, scalp/neck Cervical spondylosis Hypercholesterolemia Hypertension Melanoma Esophageal adenocarcinoma (~2017) Surgical History History of hemorrhoidectomy (~1993) History of esophagogastroduodenoscopy (EGD) History of colonoscopy History of meniscectomy of right knee (~2003) History of esophagectomy (~2018) History of jejunostomy tube placement (~2018) History of incisional hernia repair (~2019) History of appendectomy History of prostatectomy (~2004) Family History Son Non-Hodgkin lymphoma Father Prostate cancer Mother No problems noted. Social History Household Members: Spouse Housing: Condominium Are you a primary outdoor emergency care technician to a significant other at home: No Do you presently have visiting nurse or other home services: No Alcohol intake: current Alcohol intake frequency: does not drink Alcohol type: beer Patient Tobacco Use Status: Former Tobacco user Years Smoked: 35 e-Cigarette/Vaping Use: Never Used Second Hand Smoke Exposure: No Advance Directives Date on File: 12/04/21 service: Yes Current occupational status: retired Current occupation: rt handed Questionnaire Thrive Questionnaire Date Thrive assessed: 07/25/24 Physical exam (Primary Care) Vital Signs: Last Vital Signs Temp 97.1 F 10/11/24 14:22 Pulse 92 10/11/24 14:22 BP 132/74 10/11/24 14:22 Pulse Ox 97 10/11/24 14:22 BMI result Body Mass Index 23.7 Tobacco/Smoking Status: Tobacco use Status Patient Tobacco Use Status Former Tobacco user 10/11/24 14:14 e-Cigarette/Vaping Use Never Used 10/11/24 14:14 Thrive Assessment: Date of Thrive Assessment Date Thrive assessed 07/25/24 10/11/24 14:14 Coding Level of Care Code Est Pt Level 4 (40361) Diagnoses Esophageal adenocarcinoma C15.9 Assessment & Plan Assessment & Plan (1) Esophageal adenocarcinoma: Onset Date: ~2017 Comment: (dx 07/2018 - s/p esophagectomy 02/2019, s/p Radiation & Chemo) Code(s): C15.9 - Malignant neoplasm of esophagus, unspecified Category: Medical Plan: Continue supportive treatment. Plan History of Present Illness The patient is an 79-year-old male presenting with chronic ptosis and neck pain, alongside a significant decline in appetite and weight, primarily following surgery for an intestinal blockage in June. Post-operatively, there has been no recorded weight gain, and appetite remains poor, further exacerbated by chronic pain, particularly manifesting late in the afternoon. Evaluation for a blood clot is underway, with plans for anticoagulant initiation with a two-day cessation before a scheduled biopsy in two weeks for suspected cancer recurrence. An MRI of the brain has also been ordered. The patient has been prescribed oxycodone for pain management, specifically targeting late afternoon when symptoms aggravate and hinder nutrient intake. Breakfast is typically minimal, and dietetic concerns persist. There is a notable reduction in overall dietary intake, with mild improvement on occasional outings for meals. Social History - Nutritional Intake: Diet is generally poor; breakfast consists of toast and fruit, with better intake at lunch. The patient reports a lack of appetite linked to pain. - Weight Management: Significant weight loss noted post-surgery in June; no weight regain recorded. Review of Systems - Neurological: Reports headaches linked to afternoon pain. - Gastrointestinal: Reports reduced appetite and significant weight loss. Denies nausea or vomiting. Physical Exam General: Appearance normal, both eyes and all related structures Nutritional Appearance: Patient appears undernourished, weight down to 135 lbs Orientation/consciousness: Patient oriented x3 Limitations: No limitations Head: Normal to inspection Neck: Normal visual inspection Chest: Normal palpation of entire chest wall Respiratory: Normal respiratory effort Neurology: Patient oriented x3 Results - Tests and Diagnostics: MRI of the brain ordered; pending results. - Procedures: Awaiting biopsy in the next two weeks. Plan The management plan includes optimization of pain control with oxycodone for improved evening meal intake and daily function. Anticoagulation therapy is planned but requires temporary cessation before biopsy. Diagnostic imaging, including MRI, is underway to evaluate neurological symptoms. Coordination with oncology is imperative given the concern for cancer recurrence, and the scheduling of a biopsy aims to provide clarity. Nutritional improvements are encouraged despite the patient's persistent appetite challenges and weight loss, aiming to regain some weight and enhance overall health. Patient was informed and verbally consented to the use of an ambient scribe for clinic note documentation during this visit. Discussion Notes I explained to the patient the necessity of managing his pain effectively with oxycodone to improve his appetite and nutritional intake. We discussed the use of anticoagulation therapy, specifically Bryan, and the necessary pause in treatment prior to the biopsy scheduled in two weeks to assess for potential cancer recurrence. The need for the upcoming MRI as part of his healthcare plan to delineate more information was reviewed. Emphasis on dietary improvement was discussed given the current lack of appetite and significant prior weight loss. I advised continued follow-up with his oncologist, keeping an open line for any further consultation needs from my practice. Patient Instructions - Take oxycodone as prescribed to manage neck and shoulder pain. - Temporarily pause anticoagulation therapy two days before the biopsy appointment. - Attend scheduled MRI appointment for further evaluation. - Enhance dietary intake where possible to support weight gain. - Follow-up with oncology as planned and keep in touch for any new or worsening symptoms.
[2024-10-11 14:22] VITALS: BP 132/74; PULSE 92; TEMP 36.2; O2SAT 97; BMI 23.7
--- OUTSIDE RECORDS SUMMARY | 2024-10-11 17:57 | XMS_ITS | Patient Health Record ---
Author Organization [facility] Address [address] [place] [address] Care Team Providers Care Street Inspector Name Role Phone Joycelyn (RETIRED) Matthew DYER Primary Care Provi alfredito Unavailable Andre Matthew Unavailable [phone] ALLERGIES No Known Allergies RESULTS Component Value Reference Range Notes Pathology Reviewed date:07/29/2024 07:52:21 AM Interpretation: Performing Lab:[facility], [address] [place] [id number] Notes/Report: REASON FOR REFERRAL No Information MEDICATIONS [...] lower third of esophagus (C15.5) Active confirmed 632700536 Problem Anorexia (R63.0) Active confirmed Anore kirstie (58229631) Problem Personal history of malignant neoplasm of esophagus (Z85.01) Active confirmed History of malignant neoplasm of esophagus (408653324) Problem Dysphagia (R13.10) Active confirmed Dys phagia (24009250) Problem Gastroesophageal reflux disease, esophagitis presence not specified (K21.9) Active confirmed 731804621 Problem Abnormal upper gastrointestinal barium series (R93.3) Active confirmed 444710306 Problem Constipation, unspecified constipation type (K59.00) Active confirmed 00000665 Problem Pharyngeal dysphagia (R13.13) Active confirmed 35863080061777 Problem History of esophageal cancer (Z85.01) Active confirmed 062418629 Problem Hoarseness (R49.0) Active confirmed 502 72134 Problem Esophageal dysphagia (R13.10) Active confirmed 43437655 Problem Small bowel obstruction (K56.609) Active confirmed 176480140 Problem Chronic cough (R05.3) Active confirmed 35845516 Encounters Encounter Location Date Provider Diagnosis [facility] [address] [place] [address] 07/29/2024 Matthew Powell PLAN OF TREATMENT Pending [...] Insured Coverage Start Date Coverage End Date [facility] [address] [facility] [phone] [id number] FUAD FERRELL Self - patient is the insured MEDICAL (GENERAL) HISTORY Medical History History ICD Code Denies [place],DM,CVA,Lung disease,renal dise ase Prostate cancer--surgery as below HTN Hyperlipidemia Negative screening colonoscopies in 1998 and in 2009 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 Brooks--surgery with Dr. Garvey at [facility] 02/2019 SBO 02/2020--treated with NG [...]
--- OUTSIDE RECORDS SUMMARY | 2024-10-11 17:57 | XMS_ITS ---
Author Organization [facility] Address [address] [place] [address] Care Team Providers Care Lease Purchase Driver Name Role Phone Joycelyn (RETIRED) Matthew DYER Primary Care Provid er Unavailable Matthew Powell Unavailable [phone] REASON FOR VISIT requesting soon appt pt with dysphagia/hx of esophageal ca Encounters Encounter Location Date Provider Diagnosis [facility] [address] [place] [address] 08/12/2023 Matthew Powell PLAN OF TREATMENT No Information
--- OUTSIDE RECORDS SUMMARY | 2024-10-11 17:57 | XMS_ITS ---
Author Organization [facility] Address [address] [place] [address] Care Team Providers Care Outsole Cutter Machine Name Role Phone Joycelyn (RETIRED) Matthew DYER Primary Care Provid er Unavailable Matthew Powell Unavailable [phone] ALLERGIES No Known Allergies REASON FOR VISIT [...] Code Notes Problem Hoarseness (R49.0) Active confirmed 99842474 Problem Pharyngeal dysphagia (R13.13) Active confirmed 91398441969897 Problem Chronic cough (R05.3) Active confirmed 95466881 VITAL SIGNS Temperature 97.7 degrees Fahrenheit 08/13/19 24 Blood pressure systolic 00 mm Hg 08/13/19 24 Blood pressure diastolic 00 mm Hg 024 Height 68 in 08/13/2023 Weight 165 lbs 08/13/2023 BMI 25.09 kg/m2 08/13/2023 Encounters Encounter Location Date Provider Diagnosis [facility] [address] [place] [address] 08/13/2023 Matthew Powell Hoarseness R49.0 ; Pharyngeal [...]
--- OUTSIDE RECORDS SUMMARY | 2024-10-11 17:57 | XMS_ITS ---
Author Organization [facility] Address [address] [place] [address] Care Team Providers Care Marketing R[employer] Name Role Phone Joycelyn (RETIRED) Matthew DYER Primary Care Provid er Unavailable Matthew Powell Unavailable [phone] REASON FOR VISIT pathology Encounters Encounter Location Date Provider Diagnosis [facility] [address] [place] [address] 07/29/2024 Matthew Powell PLAN OF TREATMENT No Information
--- OUTSIDE RECORDS SUMMARY | 2024-10-11 17:57 | XMS_ITS | Data Portability ---
Author Organization [place] [facility] Address [address] [address] Care Team Providers Care Chicken Picker Name Role Phone EDGARD MARCELINO Primary Care [...] Organization Details Recorded Time Vocal cord paralysis 738648381 Active 2023 EDGARD VERDIN MD [address] [facility] 100, [facility] [place], [address] , [place] - [facility] 4 12:45:16 Chronic hoarsenes s 56531859479 05 Active 2023 EDGARD VERDIN MD [address] [facility],[place] [address], [place], [address] , [place] - [facility] [place] 4 12:45:54 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, unilatera l; Note: Date Diagnosed : 11/12/2023 1:50 PM (J38.01) Not Available [facility] 4 02:53:42 Dysphagia 11086956 Active 2023 Dysphagia , unspecifi ed; Note: Date Diagnosed : 11/12/2023 1:50 PM (R13.10) Not Available [facility] 4 02:53:43 Dysphonia 77718876 Active 2023 Other voice and resonance disorders ; Note: Date Diagnosed : 11/12/2023 1:50 PM (R49.8) Not Available [facility] 4 02:53:43 Finding of resonance of voice 042720409 Active 2023 Other voice and resonance disorders ; Note: Date Diagnosed : 11/12/2023 1:50 PM (R49.8) Not Available [facility] 4 02:53:43 History of malignant neoplasm of esophagus 403595276 Active 2023 Personal history of malignant neoplasm of esophagus ; Note: Date Diagnosed : 11/12/2023 1:50 PM (Z85.01) Not Available [facility] 4 02:53:44 Chronic sore throat 267337114 Active 2024 EDGARD VERDIN MD [address] [facility] 100, [place], [address] , [place] - [facility] 5 14:23:59 Oropharyn geal dysphagia 11150308 Active 2024 EDGARD VERDIN MD [address] [facility] 100, [place], [address] , [place] - [facility] 5 14:25:56 Problem Notes None recorded. Procedures Surgical History Date Name Laterality Status Provider Name and Address Organization Details Recorded Time 5 FFL_RE completed EDGARD VERDIN MD [address] [facility],[address], [address], [facility] - [facility] 09/06/2024 14:23:53 4 FFL_RE completed EDGARD VERDIN MD [address] [facility],[address], [address], [place] - [facility] 03/03/2024 12:41:19 4 injection of vocal cords completed EDGARD VERDIN MD [address] [facility],[address], [address], [facility] 03/03/2024 12:39:31 Imaging Results Imaging Date Name Status LastModified by Organiz ation Details LastModified Time 11/03/2023 imaging/diag nostic result completed [email or web address] Information not available 03/30/2024 14:23:42 07/20/2023 imaging/diag [...] lisinopril 20 mg tablet active Medication ID: [id number] Bran d Name: lisinopril Send Method: E-Prescribe [...] Updated DateTime 03/03/2024 172.72 cm 25.1 kg/m2 28568.74 g Guillermo Lim [facility] 03/03/2024 12:30:51 Date Recorded Body height Body mass index (BMI) Body weight Provider Name and Address Organization Details Last Updated DateTime 09/06/2024 172.72 cm 25.1 kg/m2 80382.74 g Guillermo Lim [facility] 09/06/2024 14:06:19 Social History None recorded. Functional Status None recorded. Mental Status None recorded. Family History Nothing Reported. Medical History No medical history recorded. Past Encounters Encounter ID Performer Location Encounter Start Date Encounter Closed Date Diagnosis/Indication Diagnosis SNOMED-CT Code Diagnosis ICD10 Code Diagnosis Note [id number] EDGARD VERDIN MD [facility] [address] [address] 03/03/2024 11:34:12 03/03/2024 12:49:27 Vocal cord paralysis 752426653 J38.01 Laryngosoc py notable for increased bulk. R cord is still paralyzed. He got a good result. I recommend he f/u in 6 months and call me sooner if his voice worsens. Chronic hoarseness 45714 66624 105 R49.0 improved since surgery but still hoarse [id number] EDGARD VERDIN MD [facility] [address] [address] 09/06/2024 13:52:52 09/06/2024 14:39:28 Vocal cord paralysis 401328395 J38.01 Laryngosco py notable for R cord is still paralysis with a glottic gap. His voice is still serviceabl e but he has lost some of the bulk of the vocal cord. Given his recent other surgeries we agreed it doesn't make sense to have more surgery at this point. We will observe for now. Chronic hoarseness 42630 92910 105 R49.0 stable Chronic sore throat 2754 42831 J31.2 no obvious lesion. may be neuropathi c as he has right eye, throat, neck and shoulder pain. I suggested he see a neurologis t. I also discussed a CT scan but we agreed to defer. Oropharyng eal dysphagia 26965874 R13.12 I discussed a repeat swallow study. [...] - MEDICARE ADVANTAGE PLAN (MEDICARE REPLACEMENT HMO) [id number] 04 Yoseph Orellana [id number] Yoseph Orellana 09/06/2024 1 [employer] - MEDICARE ADVANTAGE PLAN (MEDICARE REPLACEMENT HMO) [id number] Yoseph Orellana [id number] Yoseph Orellana Notes Date Note Type Note [...] per day. Denies heartburn. EDGARD VERDIN MD [address] [place] [address], [place], [address], [facility] - [facility] 09/06/2024 14:28:19
== END 2024-10-11 15:03 | disposition home or self-care (01) ==
LOC: HO.HMCSH 14:12
PROVIDERS: PCP Internal Medicine; Visit Provider Internal Medicine
DX: C15.9 Malignant neoplasm of esophagus, unspecified (principal)

== ENCOUNTER → 2024-10-25 13:57 | Outpatient (BNVA) | payer MEDICARE, SELFPAY | PROVIDERS: PCP Internal Medicine; Visit Provider Dietitian, Registered ==

== ENCOUNTER 2024-11-02 11:43 | Day surgery (SDC) | payer MEDICARE, SELFPAY ==
--- OUTSIDE RECORDS SUMMARY | 2024-10-18 09:14 | XMS_ITS | Encounter Summary ---
Author Organization [facility] Address [address] [place] [address] Care Team Providers Care Distribution Tech Name Role Phone Unavailable Primary Care Provider Unavailabl e Reason for Referral * Imaging (Routine) - Pending Review Specialty Diagnoses / Procedures Referred By Liberty goff Referred To Contact Radiology Diagnoses Malignant neoplasm of esophagus, unspecified (CMS/HCC) Unspecified ptosis of right eyelid Procedures MR Brain wo and w Contrast Isabella Brooks MD [address] [place] [address] HEMATOLOGY / [place] [address] Phone: tel: fax: [facility] Referral ID Status Reason Start Date Expiration Date V isits Requested Visits Authorized [id number] Pending Review 10/12/2024 10/12/2025 1 1 Reason for Visit * Imaging (Routine) - Pending Review Specialty Diagnoses / Procedures Referred By Liberty goff Referred To Contact Radiology Diagnoses Malignant neoplasm of esophagus, unspecified (CMS/HCC) Unspecified ptosis of right eyelid Procedures MR Brain wo and w Contrast Isabella Brooks MD [address] [place] [address] HEMATOLOGY / [place] [address] Phone: tel: fax: [facility] Referral ID Status Reason Start Date Expiration Date V isits Requested Visits Authorized [id number] Pending Review 10/12/2024 10/12/2025 1 1 Encounter Details Date Type Department Care Team (Latest Contact Info) Description 10/14/2024 1:30 PM EST - 10/14/2024 11:59 PM EST Hospital Encounter [facility] MRI [address] [place] [address] Malignant neoplasm of esophagus, unspecified (CMS/HCC); Unspecified ptosis of right eyelid Discharge Disposition: Home or Self Care Social History Tobacco Use Types Packs/Day Years Used Date Smoking Tobacco: Never Assessed Sex and Gender Information Value Date Recorded Sex Assigned at Not on file Legal Sex Male 1:51 AM EST Gender Identity Not on file Sexual Orientation Not on file documented as of this encounter Discharge Disposition Disposition Code Departure Means Destination Home or Self Care documented in this encounter Plan of Treatment Not on file documented as of this encounter Procedures Procedure Name Priority Date/Time Associated Diagnosis Comments MR BRAIN WO AND W CONTRAST Routine 10/14/2024 2:38 PM EST Malignant neoplasm of esophagus, unspecified (CMS/HCC) Unspecified ptosis of right eyelid documented in this encounter Results * MR Brain wo and w Contrast (10/14/2024 2:38 PM EST) Anatomical Region Laterality Modality Head and Neck Magnetic Resonan ce 10/14/2024 3:01 PM EST Impressions 10/14/2024 3:18 PM EST Leptomeningeal enhancement along the high right anterior cerebellar folia. ??This could be inflammatory or neoplastic. Attempts to contact Dr. Isabella Brooks via the [employer] system, secure text messaging system, and via telephone regarding the above findings were unsuccessful. -------- FINAL REPORT -------- Dictated By: Samuel Thompson Dictated Date: 10/14/2024 15:01 ET Assigned Physician: Samuel Thompson Reviewed and Electronically Signed By: Samuel Thompson Signed Date: 10/14/2024 15:18 ET Workstation ID: [id number] Transcribed By: Self Edit Transcribed Date: 10/14/2024 15:01 ET Narrative 10/14/2024 3:18 PM EST PROCEDURE: Contrast-enhanced MRI of the brain. HISTORY: malignant neoplasm of esophagus. TECHNIQUE: Multiplanar multisequence MRI of the brain with and without intravenous contrast. IV CONTRAST DOSE: 15 mL Dotarem from a 15 mL vial with 0 mL discarded. COMPARISON: None. FINDINGS: BRAIN: No diffusion abnormality. ??No mass or extra-axial fluid collection. ??No hydrocephalus. ??The major intracranial flow voids are preserved. Age commensurate ventricles and sulci. ??There is abnormal leptomeningeal enhancement along the high right anterior cerebellar folia. ??Small partially empty sella. ??Foci of T2 prolongation in the supratentorial white matter are nonspecific but likely sequela of mild chronic microvascular ischemic disease. ??Small area of ossification along the anterior falx. ORBITS: Normal. SINUSES/MASTOIDS: There is complete opacification of the lateral left frontal sinus. ??Mild mucosal thickening in the ethmoids. ??Mild mucosal thickening and small mucous retention cysts in the inferior right maxillary antrum. ??Trace left mastoid fluid. CALVARIUM: Mild hyperostosis frontalis interna. OTHER: The visualized skull base soft tissues are normal. ??Partially visible degenerative changes of the cervical spine. Procedure Note Samuel Thompson MD - 10/14/2024 PROCEDURE: Contrast-enhanced MRI of the brain. HISTORY: malignant neoplasm of esophagus. TECHNIQUE: Multiplanar multisequence MRI of the brain with and withoutintravenous contrast. IV CONTRAST DOSE: 15 mL Dotarem from a 15 mL vial with 0 mL discarded. COMPARISON: None. FINDINGS: BRAIN: No diffusion abnormality. No mass or extra-axial fluid collection.No hydrocephalus. The major intracranial flow voids are preserved. Agecommensurate ventricles and sulci. There is abnormal leptomeningealenhancement along the high right anterior cerebellar folia. Smallpartially empty sella. Foci of T2 prolongation in the supratentorialwhite matter are nonspecific but likely sequela of mild chronicmicrovascular ischemic disease. Small area of ossification along theanterior falx. ORBITS: Normal. SINUSES/MASTOIDS: There is complete opacification of the lateral leftfrontal sinus. Mild mucosal thickening in the ethmoids. Mild mucosalthickening and small mucous retention cysts in the inferior rightmaxillary antrum. Trace left mastoid fluid. CALVARIUM: Mild hyperostosis frontalis interna. OTHER: The visualized skull base soft tissues are normal. Partiallyvisible degenerative changes of the cervical spine. IMPRESSION: Leptomeningeal enhancement along the high right anterior cerebellar folia.This could be inflammatory or neoplastic. Attempts to contact Dr. Isabella Brooks via the [employer] system, securetext messaging system, and via telephone regarding the above findings wereunsuccessful. -------- FINAL REPORT -------- Dictated By: Samuel Thompson Dictated Date: 10/14/2024 15:01 ET Assigned Physician: Samuel Thompson Reviewed and Electronically Signed By: Samuel Thompson Signed Date: 10/14/2024 15:18 ET Workstation ID: [id number] Transcribed By: Self Edit Transcribed Date: 10/14/2024 15:01 ET Isabella Brooks MD IMG MRI PROCEDURES Final Result documented in this encounter Visit Diagnoses Diagnosis Malignant neoplasm of esophagus, unspecified (CMS/HCC) Unspecified ptosis of right eyelid documented in this encounter Administered Medications Inactive Administered Medications - up to 3 most recent administrations Medication Order MAR Action Action Date Dose Rate Site gadoterate meglumine (CLARISCAN, DOTAREM) injection 15 mL 15 mL, intravenous, Once in imaging, Starting on Thu10/14/24 at 1437, For 1 dose Given 10/14/2024 2:38 PM EST 15 mL documented in this encounter Orders Medications Ordered That Homer ht Not Have Been Administered Count Last Ordered Date First Ordered Date gadoterate meglumine (SAI CAN, DOTAREM) injection 15 mL 1 10/14/2024 documented in this encounter
--- OUTSIDE RECORDS SUMMARY | 2024-10-18 09:14 | XMS_ITS ---
Author Organization [facility] Address [address] [place] [address] Care Team Providers Care Vocal Music Instructor Name Role Phone Joycelyn (RETIRED) Matthew DYER Primary Care Provid er Unavailable Matthew Powell Unavailable [phone] REASON FOR VISIT pathology Encounters Encounter Location Date Provider Diagnosis [facility] [address] [place] [address] 07/29/2024 Matthew Powell Plan Of Treatment No Information Progress Notes * FUAD SHIPMAN LDOB:[birth year] (78 yo M)Acc No.[id number]:07/29/2024 Patient:?FUAD SHIPMAN :1945???Age:78 Y???Sex:Male Address:[address] [place] [address], [facility] [place] [address] * true * Date:? Generated for Romii raquel/Alyse/eTransmitting on:?10/18/2024 09:13 AM EDT
--- OUTSIDE RECORDS SUMMARY | 2024-10-18 09:14 | XMS_ITS | Clinical Summary ---
Author Organization [facility] Address [address] [place] [address] Phone Care Team Providers Care Sash Assembler Name Role Phone Unavailable Primary Care Provider Unavailabl e Encounters Date Type Department Care Team Description 10/14/2024 1:30 PM EST - 10/14/2024 11:59 PM EST Hospital Encounter [facility] MRI [address] [place] [address] Malignant neoplasm of esophagus, unspecified (CMS/HCC); Unspecified ptosis of right eyelid Discharge Disposition: Home or Self Care from Last 3 Months Social History Tobacco Use Types Packs/Day Years Used Date Smoking Tobacco: Never Assessed Sex and Gender Information Value Date Recorded Sex Assigned at Not on file Legal Sex Male 1:51 AM EST Gender Identity Not on file Sexual Orientation Not on file Plan of Treatment Health Maintenance Due Date Last Done Comments DTaP,Tdap,and Td Vaccines (1 - Tdap) 1964 Pneumococcal Vaccine: 50+ Years (1 of 2 - PCV) 1962 Zoster Vaccines (1 of 2) 1964 RSV Immunization Patients 60+ Years Old (1 - 1-dose 75+ series) 2018 Cholesterol Screening (Lipid Panel) 07/13/2022 Depression Screening 07/13/2022 Falls Risk Assessment 07/13/2022 Social Influencers of Health Screening 07/13/2022 COVID-19 Vaccine ( season) 2024 06/08/2023, 06/10/2021, 10/10/2020, Additional history exists Hypertension/CHF/CAD Annual BMP Blood Test 10/14/2024 Influenza Vaccine Completed 05/25/2024, , 05/21/2022, Additional history exists HIB Vaccines Aged Out No longer eligi ble based on patient's age to complete this topic HPV Vaccines Aged Out No longer eligi ble based on patient's age to complete this topic Hepatitis A Vaccines Aged Out No long er eligible based on patient's age to complete this topic Hepatitis B Vaccines Aged Out No long er eligible based on patient's age to complete this topic IPV Vaccines Aged Out No longer eligi ble based on patient's age to complete this topic MMR Vaccines Aged Out No longer eligi ble based on patient's age to complete this topic Meningococcal ACWY Vaccine Aged Out N o longer eligible based on patient's age to complete this topic Meningococcal B Vacine Aged Out No lo nger eligible based on patient's age to complete this topic RSV Immunization Patients Under 20 months Aged Out No longer eligible based on patient's age to complete this topic Varicella Vaccines Aged Out No longer eligible based on patient's age to complete this topic Procedures Procedure Name Priority Date/Time Associated Diagnosis Comments MR BRAIN WO AND W CONTRAST Routine 10/14/2024 2:38 PM EST Malignant neoplasm of esophagus, unspecified (CMS/HCC) Unspecified ptosis of right eyelid from Last 3 Months Results * MR Brain wo and w Contrast (10/14/2024 2:38 PM EST) Anatomical Region Laterality Modality Head and Neck Magnetic Resonan ce 10/14/2024 3:01 PM EST Impressions 10/14/2024 3:18 PM EST Leptomeningeal enhancement along the high right anterior cerebellar folia. ??This could be inflammatory or neoplastic. Attempts to contact Dr. Isabella Brooks via the [employer] system, secure text messaging system, and via telephone regarding the above findings were unsuccessful. -------- FINAL REPORT -------- Dictated By: Samuel Thompson Dictated Date: 10/14/2024 15:01 ET Assigned Physician: Samuel Thompson Reviewed and Electronically Signed By: Samuel Thompson Signed Date: 10/14/2024 15:18 ET Workstation ID: [id number] Transcribed By: Self Edit Transcribed Date: 10/14/2024 [...] to contact Dr. Isabella Brooks via the [employer] system, [employer] messaging system, and via telephone regarding the above findings wereunsuccessful. -------- FINAL REPORT -------- Dictated By: Samuel Thompson Dictated Date: 10/14/2024 15:01 ET Assigned Physician: Samuel Thompson Reviewed and Electronically Signed By: Samuel Thompson Signed Date: 10/14/2024 15:18 ET Workstation ID: [id number] Transcribed By: Self Edit Transcribed Date: 10/14/2024 15:01 ET Isabella Brooks MD IMG MRI PROCEDURES Final Result from Last 3 Months
--- OUTSIDE RECORDS SUMMARY | 2024-10-18 09:14 | XMS_ITS ---
Author Organization [facility] Address [address] [place] [address] Care Team Providers Care Supervising Producer Name Role Phone Joycelyn (RETIRED) Matthew DYER Primary Care Provid er Unavailable Matthew Powell Unavailable [phone] Allergies No Known Allergies REASON FOR VISIT patient presents today for esophageal dysphagia Medications Medication SIG (Take, Route, Frequency, Duration) Notes [...] morning meal Orally twice a day Active Social History Tobacco Use: Social History Observation Description Date Details (start date - stop date) Former Smoker NA - NA Tobacco Use/Smoking Question Answer Notes Patient is a former smoker How long has it been since you last smoked? > 10 years Alcohol Screen Question Answer Notes Did you have a drink containing alcohol in the p ast year? No Points 0 Interpretation Negative Section Notes: Nonsmoker > 20 yrs ago; 2-3 beers QD in the past; no alcohol presently Problems Problem Type SNOMED Code ICD Code Onset Dates Problem Status W/U Status Risk Notes Problem [id number] Hoarseness (R49.0) Active confirmed Problem [id number] Pharyngeal dysphagia (R13.13) Active confirmed Problem 83903992 Chronic cough (R05.3) Active confirmed Vital Signs Temperature 97.7 degrees Fahrenheit 08/13/19 24 Blood pressure systolic 00 mm Hg 08/13/19 24 Blood pressure diastolic 00 mm Hg 024 Height 68 in 08/13/2023 Weight 165 lbs 08/13/2023 BMI 25.09 kg/m2 08/13/2023 Encounters Encounter Location Date Provider Diagnosis [facility] [address] [place] [address] 08/13/2023 Matthew Powell Hoarseness R49.0 ; Pharyngeal dysphagia R13.13 ; History of esophageal cancer Z85.01 and Chronic cough R05.3 Assessments Encounter Date Diagnosis (ICD Code) Assessment Notes Treatment Notes Treatment Clinical Notes Section Notes 08/13/2023 Hoarseness (ICD-10 - R49.0) Let me know what Dr. Baird says--tell him to send me a report Overall, Fuad appears quite well considering the original diagnosis of esophageal cancer being about 5 years ago and then having had a recurrence about 2 years ago. I do not think his current symptoms are reflective of any residual problem in the upper GI tract. Based on his previous upper endoscopy, his current symptoms, and the recent barium swallow just last month, I don't think an upper endoscopy would be helpful in regard to his current symptoms. I did review with him that I do think his symptoms of the hoarseness, coughing, and some dysphagia, are related to some oropharyngeal problems with associated swallowing issues on that basis and probably some ongoing chronic component of aspiration. I did advise him that I think it will be important for him to be seen by ENT to have a thorough exam of the oropharynx and vocal cords be sure no other pathology exists. I did advise him to try to have Dr. Baird send me a copy of his findings. In the meantime I have scheduled him for a modified barium swallow with the speech and swallowing therapists at the hospital. I think that would be helpful to see the degree of any possible ongoing aspiration and to further evaluate his swallowing issues. The routine barium swallow last month did show some subglottic aspiration and therefore a modified barium swallow would be important to see if he is actually having more aspiration that would certainly be affecting his voice and creating some chronic coughing on that basis. I advised Fuad that I don't think any other evaluation nor treatment on my part would be needed. I did advise him to continue his PPI. If the workup only reveals some oropharyngeal dysphagia and aspiration, without any other pathology noted, then I think the next step would be having him be seen by the swallowing clinic for further attempts at improving his symptoms. Fuad was comfortable with this plan. Thank you again for allowing me to participate in Fuad's care. I shall continue to keep you advised of his progress as needed. Please do not hesitate to contact me if I can be of any further assistance in the future. 08/13/2023 Pharyngeal dysphagia (ICD-10 - R13.13) Overall, Fuad appears quite well considering the original diagnosis of esophageal cancer being about 5 years ago and then having had a recurrence about 2 years ago. I do not think his current symptoms are reflective of any residual problem in the upper GI tract. Based on his previous upper endoscopy, his current symptoms, and the recent barium swallow just last month, I don't think an upper endoscopy would be helpful in regard to his current symptoms. I did review with him that I do think his symptoms of the hoarseness, coughing, and some dysphagia, are related to some oropharyngeal problems with associated swallowing issues on that basis and probably some ongoing chronic component of aspiration. I did advise him that I think it will be important for him to be seen by ENT to have a thorough exam of the oropharynx and vocal cords be sure no other pathology exists. I did advise him to try to have Dr. Baird send me a copy of his findings. In the meantime I have scheduled him for a modified barium swallow with the speech and swallowing therapists at the hospital. I think that would be helpful to see the degree of any possible ongoing aspiration and to further evaluate his swallowing issues. The routine barium swallow last month did show some subglottic aspiration and therefore a modified barium swallow would be important to see if he is actually having more aspiration that would certainly be affecting his voice and creating some chronic coughing on that basis. I advised Fuad that I don't think any other evaluation nor treatment on my part would be needed. I did advise him to continue his PPI. If the workup only reveals some oropharyngeal dysphagia and aspiration, without any other pathology noted, then I think the next step would be having him be seen by the swallowing clinic for further attempts at improving his symptoms. Fuad was comfortable with this plan. Thank you again for allowing me to participate in Fuad's care. I shall continue to keep you advised of his progress as needed. Please do not hesitate to contact me if I can be of any further assistance in the future. 08/13/2023 History of esophageal cancer (ICD-10 - Z85.01) Overall, Fuad appears quite well considering the original diagnosis of esophageal cancer being about 5 years ago and then having had a recurrence about 2 years ago. I do not think his current symptoms are reflective of any residual problem in the upper GI tract. Based on his previous upper endoscopy, his current symptoms, and the recent barium swallow just last month, I don't think an upper endoscopy would be helpful in regard to his current symptoms. I did review with him that I do think his symptoms of the hoarseness, coughing, and some dysphagia, are related to some oropharyngeal problems with associated swallowing issues on that basis and probably some ongoing chronic component of aspiration. I did advise him that I think it will be important for him to be seen by ENT to have a thorough exam of the oropharynx and vocal cords be sure no other pathology exists. I did advise him to try to have Dr. Baird send me a copy of his findings. In the meantime I have scheduled him for a modified barium swallow with the speech and swallowing therapists at the hospital. I think that would be helpful to see the degree of any possible ongoing aspiration and to further evaluate his swallowing issues. The routine barium swallow last month did show some subglottic aspiration and therefore a modified barium swallow would be important to see if he is actually having more aspiration that would certainly be affecting his voice and creating some chronic coughing on that basis. I advised Fuad that I don't think any other evaluation nor treatment on my part would be needed. I did advise him to continue his PPI. If the workup only reveals some oropharyngeal dysphagia and aspiration, without any other pathology noted, then I think the next step would be having him be seen by the swallowing clinic for further attempts at improving his symptoms. Fuad was comfortable with this plan. Thank you again for allowing me to participate in Fuad's care. I shall continue to keep you advised of his progress as needed. Please do not hesitate to contact me if I can be of any further assistance in the future. 08/13/2023 Chronic cough (ICD-10 - R05.3) Overall, Fuad appears quite well considering the original diagnosis of esophageal cancer being about 5 years ago and then having had a recurrence about 2 years ago. I do not think his current symptoms are reflective of any residual problem in the upper GI tract. Based on his previous upper endoscopy, his current symptoms, and the recent barium swallow just last month, I don't think an upper endoscopy would be helpful in regard to his current symptoms. I did review with him that I do think his symptoms of the hoarseness, coughing, and some dysphagia, are related to some oropharyngeal problems with associated swallowing issues on that basis and probably some ongoing chronic component of aspiration. I did advise him that I think it will be important for him to be seen by ENT to have a thorough exam of the oropharynx and vocal cords be sure no other pathology exists. I did advise him to try to have Dr. Baird send me a copy of his findings. In the meantime I have scheduled him for a modified barium swallow with the speech and swallowing therapists at the hospital. I think that would be helpful to see the degree of any possible ongoing aspiration and to further evaluate his swallowing issues. The routine barium swallow last month did show some subglottic aspiration and therefore a modified barium swallow would be important to see if he is actually having more aspiration that would certainly be affecting his voice and creating some chronic coughing on that basis. I advised Fuad that I don't think any other evaluation nor treatment on my part would be needed. I did advise him to continue his PPI. If the workup only reveals some oropharyngeal dysphagia and aspiration, without any other pathology noted, then I think the next step would be having him be seen by the swallowing clinic for further attempts at improving his symptoms. Fuad was comfortable with this plan. Thank you again for allowing me to participate in Fuad's care. I shall continue to keep you advised of his progress as needed. Please do not hesitate to contact me if I can be of any further assistance in the future. Plan Of Treatment Treatment Notes Assessment Notes Hoarseness Let me know what Dr. Baird says--tell him to send me a report Pending Test Test Name Order Date XR BARIUM SWALLOW, MODIFIED VIDEO 2023 Next Appt Details Follow Up: prn, Reason: Progress Notes * FUAD SHIPMAN LDOB:[birth year] (78 yo M)Acc No.[id number]:08/13/2023 Progress Notes Patient:FUAD GLASGOW Provider:?Matthew Powell MD :1945???Age:77 Y???Sex:Male Darren e:08/13/2023 Address:[address] [place], [place] [id number] Pcp:Matthew Hirsch, DO Subjective: * Chief Complaints: * ???Patient presents today fo r esophageal dysphagia * HPI: ???incontinence:? I saw Fuad in followup today in regard to his previous history of esophageal cancer, and some worsening symptoms of hoarseness, coughing, and dysphagia. ?I last saw Fuad in January of 2021, at which time he underwent a negative followup upper endoscopy. There was no sign of any recurrent cancer, anastomotic stricture, peptic ulcer disease, nor gastric outlet obstruction. 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 He received chemotherapy throughout that year but did not receive any radiation treatments. He had received radiation treatments and chemotherapy prior to his esophagectomy when the esophageal cancer was first diagnosed. ?His main issue at present time is that of progressive hoarseness and coughing. He describes difficulty in swallowing where it seems to be localized to the back of his throat and sternal notch area. He does describe some coughing with eating or drinking as well. However, he does report that he is eating fairly comfortably and has been maintaining his weight. He denies any significant heartburn. He denies waking up at night with reflux-type symptoms or aspiration-type symptoms. He denies any nausea nor vomiting. He denies any abdominal pain and has not had any recurrent symptoms of his previous small bowel obstructions. His bowel movements have been fairly regular and he denies any signs of bleeding. ?He was seen by his oncologist, Dr. Brooks, in May of 2023. A CT scan of his chest in July of 2023 was negative for any recurrent disease. He also had a barium swallow in July, which described some small amount of subglottic aspiration, but there was no evidence of any anastomotic stricture nor any sign of recurrent mass. Esophageal peristalsis in the remaining portion of the esophagus appeared normal. ?He does advise me that he is waiting to hear about an upcoming appointment with Dr. Baird as well. * ROS:?General/Constitutional:?Change in appetite?denies.?Chills?denies.?Fatigue?denies.?Ophthalmologic:?Comments?all negative.?ENT:?Comments?all negative.?Respiratory:?hemoptysis?denies.?Cough?admits.?Cardiovascular:?Chest pain?denies.?Orthopnea?denies.?Gastrointestinal:?Comments?See HPI for details.?Genitourinary:?Hematuria?denies.?Dysuria?denies.?Musculoskeletal:?Painful joints?denies.?Weakness?denies.?Skin:?Itching?denies.?Rash?denies.?Neurologic:?Headache?denies.?Seizures?denies.?Psychiatric:?Comments?all negative.? * Medical History:? * Surgical History:?Prostatect arturo for prostate cancer in 2004 Appendectomy Knee surgery Distal esophagectomy laparoscopically as above 02/2019Incisional hernia repair with a mesh-Dr. Jj 09/2019 * Hospitalization/Major Diagno stic Procedure:?No Hospitalization History. * Family History:?Father: dece ased.?Mother: , diagnosed with HTN (hypertension).? Denies family history of colon cancer. * Social History:?Tobacco Use:?Tobacco Use/Smoking?Patient is a?former smoker,?How long has it been since you last smoked??> 10 years.?Drugs/Alcohol:?Alcohol Screen?Did you have a drink containing alcohol in the past year??No,?Points?0,?Interpretation?Negative.?Miscellaneous:?Marital status: . 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 ???Nonsmoker >20 yrs ago; 2-3 beers QD in the past; no alcohol presently. * Medications:?TakingLisinopri l 20 MG Tablet 1 tablet Orally Once a dayVerapamil HCl 240 MG Tablet Extended Release 2 tablet Orally once a dayOmeprazole 40 MG Capsule Delayed Release 1 capsule 30 minutes before morning meal Orally twice a dayCetirizine HCl 10 MG Tablet 1 tablet Orally Once a dayDocusate Sodium 100 MG Capsule 1 capsule as needed Orally twice a dayMiraLax - Powder as directed Orally Centrum Silver Gabapentin 300 MG Capsule 3 tablets Oral twice a dayTaking Lisinopril 20 MG Tablet 1 tablet Orally Once a dayTaking Verapamil HCl 240 MG Tablet Extended Release 2 tablet Orally once a dayTaking Omeprazole 40 MG Capsule Delayed Release 1 capsule 30 minutes before morning meal Orally twice a dayTaking Cetirizine HCl 10 MG Tablet 1 tablet Orally Once a dayTaking Docusate Sodium 100 MG Capsule 1 capsule as needed Orally twice a dayTaking MiraLax - Powder as directed Orally Taking Centrum Silver Taking Gabapentin 300 MG Capsule 3 tablets Oral twice a dayNot-Taking/PRNOmeprazole 40 MG Capsule Delayed Release 1 capsule Orally Once a dayNot-Taking/PRN Omeprazole 40 MG Capsule Delayed Release 1 capsule Orally Once a dayDiscontinuedAmitriptyline HCl 25 MG Tablet Oral Rosuvastatin Calcium 20 MG Tablet 1 tablet Orally Once a dayFlonase Allergy Relief 50 MCG/ACT Suspension 1 spray in each nostril Nasally Once a dayMedication List reviewed and reconciled with the patientDiscontinued Amitriptyline HCl 25 MG Tablet Oral Discontinued Rosuvastatin Calcium 20 MG Tablet 1 tablet Orally Once a dayDiscontinued Flonase Allergy Relief 50 MCG/ACT Suspension 1 spray in each nostril Nasally Once a dayMedication List reviewed and reconciled with the patient * Allergies:?N.K.D.A.yes[Aller gies Verified] Objective: * Vitals:?Wt: 165 lbs, Ht: 68 in, BMI:25.09 Index, BP: 00/00 mm Hg, Temp: 97.7. * Examination: ???General Examination: ?GENERAL APPEARANCE:?pleasant, well nourished, well developed, in no acute distress.?EYES:?sclera non-icteric.?ORAL CAVITY:?mucosa moist.?NECK/THYROID:?no cervical lymphadenopathy, neck supple.?SKIN:?nonjaundiced, no spider angiomata.?HEART:?S1, S2 normal.?LUNGS:?clear to auscultation bilaterally.?ABDOMEN:?normalbowel sounds,no guarding or rigidity,no guarding or rigidity,no masses palpable,soft, nontender, nondistended--well-healed scars.?EXTREMITIES:?no edema.?NEUROLOGIC:?alert and oriented.? Assessment: * Assessment: 1.?Pharyngeal dysphagia - R1 3.13 (Primary)?2.?Hoarseness - R49.0?3.?History of esophageal cancer - Z85.01?4.?Chronic cough - R05.3? Overall, Fuad appears steve te well considering the original diagnosis of esophageal cancer being about 5 years ago and then having had a recurrence about 2 years ago. I do not think his current symptoms are reflective of any residual problem in the upper GI tract. Based on his previous upper endoscopy, his current symptoms, and the recent barium swallow just last month, I don't think an upper endoscopy would be helpful in regard to his current symptoms. I did review with him that I do think his symptoms of the hoarseness, coughing, and some dysphagia, are related to some oropharyngeal problems with associated swallowing issues on that basis and probably some ongoing chronic component of aspiration. I did advise him that I think it will be important for him to be seen by ENT to have a thorough exam of the oropharynx and vocal cords be sure no other pathology exists. I did advise him to try to have Dr. Baird send me a copy of his findings. In the meantime I have scheduled him for a modified barium swallow with the speech and swallowing therapists at the hospital. I think that would be helpful to see the degree of any possible ongoing aspiration and to further evaluate his swallowing issues. The routine barium swallow last month did show some subglottic aspiration and therefore a modified barium swallow would be important to see if he is actually having more aspiration that would certainly be affecting his voice and creating some chronic coughing on that basis. I advised Fuad that I don't think any other evaluation nor treatment on my part would be needed. I did advise him to continue his PPI. If the workup only reveals some oropharyngeal dysphagia and aspiration, without any other pathology noted, then I think the next step would be having him be seen by the swallowing clinic for further attempts at improving his symptoms. Fuad was comfortable with this plan. Thank you again for allowing me to participate in Fuad's care. I shall continue to keep you advised of his progress as needed. Please do not hesitate to contact me if I can be of any further assistance in the future. Plan: * Treatment: * 2.?Hoarseness?Imaging: XR BARIUM SWALLOW, MODIFIED VIDEO* With Speech/Swallowing Thera pistsColon,Tiffanie 08/13/2023 10:43:19 AM EST > left message req appt , will fax recordsColon,Tiffanie 08/14/2023 01:58:47 PM EST >sched for 09/09/23 at 2:30 pm * Notes: Let me know what Dr. Baird says--tell him to send me a report.?? 3.?History of esophageal cancer?Imaging: XR BARIUM SWALLOW, MODIFIED VIDEO* With Speech/Swallowing Thera pistsColon,Tiffanie 08/13/2023 10:43:19 AM EST > left message req appt , will fax recordsColon,Tiffanie 08/14/2023 01:58:47 PM EST >sched for 09/09/23 at 2:30 pm * 4.?Chronic cough?Imaging: XR BARIUM SWALLOW, MODIFIED VIDEO* With Speech/Swallowing Thera pistsColon,Tiffanie 08/13/2023 10:43:19 AM EST > left message req appt , will fax recordsColon,Tiffanie 08/14/2023 01:58:47 PM EST >sched for 09/09/23 at 2:30 pm * * Procedure Codes:?1036F TOBAC CO NON-[id number] BP SCR NOT PRFRM REC REASON NOS * Preventive Medicine:? ??Counseling:?Care goal follow-up plan:?Above Normal BMI Follow-up?Giving encouragement to exercise,?BMI management provided?Yes.? * Follow Up:?prn * * Sign off status: Completed true * Provider:?Matthew Powell MD Date:? 024 Generated for Jamey garcía/Alyse/eTransmitting on:?10/18/2024 09:14 AM EDT History and Physical Notes * HPI (History of Present Illness) Category Sub-Category Detail Notes Category Not es incontinence I saw Fuad in followup today in regard to his previous history of esophageal cancer, and some worsening symptoms of hoarseness, coughing, and dysphagia. I last saw Fuad in January of 2021, at which time he underwent a negative followup upper endoscopy. There was no sign of any recurrent cancer, anastomotic stricture, peptic ulcer disease, nor gastric outlet obstruction. Since that time he unfortunately had a recurrence of the esophageal cancer in October of 2021 in the region of the thyroid gland. He received chemotherapy throughout that year but did not receive any radiation treatments. He had received radiation treatments and chemotherapy prior to his esophagectomy when the esophageal cancer was first diagnosed. His main issue at present time is that of progressive hoarseness and coughing. He describes difficulty in swallowing where it seems to be localized to the back of his throat and sternal notch area. He does describe some coughing with eating or drinking as well. However, he does report that he is eating fairly comfortably and has been maintaining his weight. He denies any significant heartburn. He denies waking up at night with reflux-type symptoms or aspiration-type symptoms. He denies any nausea nor vomiting. He denies any abdominal pain and has not had any recurrent symptoms of his previous small bowel obstructions. His bowel movements have been fairly regular and he denies any signs of bleeding. He was seen by his oncologist, Dr. Brooks, in May of 2023. A CT scan of his chest in July of 2023 was negative for any recurrent disease. He also had a barium swallow in July, which described some small amount of subglottic aspiration, but there was no evidence of any anastomotic stricture nor any sign of recurrent mass. Esophageal peristalsis in the remaining portion of the esophagus appeared normal. He does advise me that he is waiting to hear about an upcoming appointment with Dr. Baird as well. Examination Category Sub-Category Detail Notes Category Not es General Examination GENERAL APPEARANCE: pleasant , well [...]
--- OUTSIDE RECORDS SUMMARY | 2024-10-18 09:14 | XMS_ITS ---
Author Organization [facility] Address [address] [place] [phone] Care Team Providers Care Senior Salesforce Developer Name Role Phone Joycelyn (RETIRED) Matthew DYER Primary Care Provid er Unavailable Matthew Powell Unavailable [phone] REASON FOR VISIT requesting soon appt pt with dysphagia/hx of esophageal ca Encounters Encounter Location Date Provider Diagnosis [facility] [address] [place] [phone] 08/12/2023 Matthew Powell Plan Of Treatment No Information Progress Notes * FUAD SHIPMAN LDOB:[birth year] (77 yo M)Acc No.[id number]:08/12/2023 Patient:?FUAD SHIPMAN :1945???Age:77 Y???Sex:Male Address:[address] [place] [address], [place] [address] * true * Date:? Generated for Romii raquel/Alyse/eTransmitting on:?10/18/2024 09:13 AM EDT
--- OUTSIDE RECORDS SUMMARY | 2024-10-18 09:14 | XMS_ITS | Data Portability ---
Author Organization [place] - [facility], Allergy Address [address] [address] Care Team Providers Care Story Analyst Name Role Phone EDGARD MARCELINO Primary Care [...] Organization Details Recorded Time Vocal cord paralysis 800108846 Active 2023 EDGARD VERDIN MD 100 [facility] 100, [place], [address] , [place] [facility] 4 12:45:16 Chronic hoarsenes s 73595505045 05 Active 2023 EDGARD VERDIN MD 100 [facility],[place] [address], [place], [address] , [place] [facility] 4 12:45:54 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, unilatera l; Note: Date Diagnosed : 11/12/2023 1:50 PM (J38.01) Not Available [facility] 4 02:53:42 Dysphagia 81951966 Active 2023 Dysphagia , unspecifi ed; Note: Date Diagnosed : 11/12/2023 1:50 PM (R13.10) Not Available [facility] 4 02:53:43 Dysphonia 95675467 Active 2023 Other voice and resonance disorders ; Note: Date Diagnosed : 11/12/2023 1:50 PM (R49.8) Not Available [facility] 4 02:53:43 Finding of resonance of voice 102404907 Active 2023 Other voice and resonance disorders ; Note: Date Diagnosed : 11/12/2023 1:50 PM (R49.8) Not Available [facility] 4 02:53:43 History of malignant neoplasm of esophagus 036597136 Active 2023 Personal history of malignant neoplasm of esophagus ; Note: Date Diagnosed : 11/12/2023 1:50 PM (Z85.01) Not Available [facility] 4 02:53:44 Chronic sore throat 546669934 Active 2024 EDGARD VERDIN MD 100 [facility] 100, [place], [address] , [place] [facility] 5 14:23:59 Oropharyn geal dysphagia 58825944 Active 2024 EDGARD VERDIN MD 100 [facility] 100, [place], [address] , [place] [facility] 5 14:25:56 Problem Notes None recorded. Procedures Surgical History Date Name Laterality Status Provider Name and Address Organization Details Recorded Time 5 FFL_RE completed EDGARD VERDIN MD 100 [facility],[address], [address], [facility] - [facility] 09/06/2024 14:23:53 4 FFL_RE completed EDGARD VERDIN MD 100 [facility],[address], [address], [place] [facility] 03/03/2024 12:41:19 4 injection of vocal cords completed EDGARD VERDIN MD 100 [facility],[address], [address], [facility] 03/03/2024 12:39:31 Imaging Results Imaging Date Name Status LastModified by Organiz ation Details LastModified Time 11/03/2023 imaging/diag nostic result completed [email or web address] Information not available 03/30/2024 14:23:42 07/20/2023 imaging/diag [...] lisinopril 20 mg tablet active Medication ID: [id number] Bran d Name: lisinopril Send Method: E-Prescribe [...] Updated DateTime 03/03/2024 172.72 cm 25.1 kg/m2 88671.74 g [facility] 03/03/2024 12:30:51 Date Recorded Body height Body mass index (BMI) Body weight Provider Name and Address Organization Details Last Updated DateTime 09/06/2024 172.72 cm 25.1 kg/m2 73357.74 g [facility] 09/06/2024 14:06:19 Social History None recorded. Functional Status None recorded. Mental Status None recorded. Family History Nothing Reported. Medical History No medical history recorded. Past Encounters Encounter ID Performer Location Encounter Start Date Encounter Closed Date Diagnosis/Indication Diagnosis SNOMED-CT Code Diagnosis ICD10 Code Diagnosis Note [id number] EDGARD VERDIN MD [facility] [address] [address] 03/03/2024 11:34:12 03/03/2024 12:49:27 Vocal cord paralysis 959178716 J38.01 Laryngosoc py notable for increased bulk. R cord is still paralyzed. He got a good result. I recommend he f/u in 6 months and call me sooner if his voice worsens. Chronic hoarseness 56259 89980 105 R49.0 improved since surgery but still hoarse [id number] EDGARD VERDIN MD [facility] [address] [address] 09/06/2024 13:52:52 09/06/2024 14:39:28 Vocal cord paralysis 961846330 J38.01 Laryngosco py notable for R cord is still paralysis with a glottic gap. His voice is still serviceabl e but he has lost some of the bulk of the vocal cord. Given his recent other surgeries we agreed it doesn't make sense to have more surgery at this point. We will observe for now. Chronic hoarseness 15677 00031 105 R49.0 stable Chronic sore throat 2754 30903 J31.2 no obvious lesion. may be neuropathi c as he has right eye, throat, neck and shoulder pain. I suggested he see a neurologis t. I also discussed a CT scan but we agreed to defer. Oropharyng eal dysphagia 09809195 R13.12 I discussed a repeat swallow study. [...] - MEDICARE ADVANTAGE PLAN (MEDICARE REPLACEMENT HMO) [id number] 04 Yoseph Orellana [id number] Yoseph Orellana 09/06/2024 1 [employer] - MEDICARE ADVANTAGE PLAN (MEDICARE REPLACEMENT HMO) [id number] 04 Yoseph Orellana [id number] Yoseph Orellana Notes Date Note Type Note [...] per day. Denies heartburn. EDGARD VERDIN MD [address] [place] [address], [place], [address], [facility] - [facility] 09/06/2024 14:28:19
--- OUTSIDE RECORDS SUMMARY | 2024-10-18 09:14 | XMS_ITS | Patient Health Record ---
Author Organization [facility] Address [address] [place] [address] Care Team Providers Care Coal Deliverer Name Role Phone Joycelyn (RETIRED) Matthew DYER Primary Care Provid er Unavailable Matthew Powell Unavailable [phone] Allergies No Known Allergies Results Component Value Reference Range Notes Pathology Reviewed date:07/29/2024 07:52:21 AM Interpretation: Performing Lab:[facility], [address] [place] [address] Notes/Report: Name: Stevo Orellana Age/Sex: 78/M : 1945 Unit#: [id number] Attend Dr: Macey Bowden MD Re07/24/24 Status : DIS IN Location: [facility] 446-1 Disch: 07/27/24 SPEC : [id number] RECD : 07/26/24 STATUS: RYAN CANNON NUM: [id number] BLAYNE: 07/26/24-[address]: Michael Mast MD ENTERED: 07/26/24-12 20 SP TYPE: Surgical OTHR DR: Matthew Hirsch Nayyer MD ORDERED: HE Stain/3, Gross Micro L4, IHC, Special st. 2, H. pylori, AB/PAS Diagnosis Stomach, antrum, bio psy: Antral-type and oxyntic mucosa with mild chronic inactive inflammation; no Hel icobacter organisms seen. Clinical History Pre-Op Dx: Inability to take po, nausea Post-Op Dx: Normal EGD Microscopic Description Microscopic sections examined. No metaplastic changes are seen, supported by AB/PAS stains; no Helicobacter orga nisms are seen, supported by H. pylori immunostain. Material Received Antral bx Gross Description Received in formalin labeled ?antral bx? are 2 cornell-pink irregular tissue fragments measuring 0.2 and 0.3 cm, subm itted in toto in a cassette labeled A. CEDS Special studies orde red and performed: Immunostain for H. pylori; AB/PAS stains Copies To: Michael Mast MD [facility] [address] [place] [address] [address] [place] [address] Matthew Hirsch DO [facility] [address] [place] [address] Macey Bowden MD [address] [place] [address] CONTINUED ON NEXT PAGE Name: Stevo Orellana L Age/Sex: 78/M : 1945 Unit#: [id number] Attend Dr: Macey Bowden MD Re07/24/24 Status : DIS IN Location: [facility] 446-1 Disch: 07/27/24 SPEC : [id number] RECD : 07/26/24-121 STATUS: RYAN CANNON NUM: [id number] BLAYNE: 07/26/24 [facility] DR: Michael Mast MD ENTERED: 07/26/24-07 29 SP TYPE: Surgical OTHR DR: Matthew Hirsch Nayyer MD ORDERED: HE Stain/3, Gross Micro L4, IHC, Special st. 2, H. pylori, AB/PAS Signed (si gnature on file) Som Jenkins MD 07/28/24 1536 END OF REPORT Reason For Referral No Information Medications Medication SIG (Take, Route, Frequency, Duration) [...] morning meal Orally twice a day Active Immunizations Vaccine Route Administration Date Status Comme nts Influenza Unknown 05/18/2018 Administered Influenza Unknown 05/10/2019 Administered Influenza Unknown 05/30/2020 Administered Social History Tobacco Use: Social History Observation [...] > 20 yrs ago; 2-3 beers QD Nonsmoker > 20 yrs ago; 2-3 beers QD Nonsmoker > 20 yrs ago; 2-3 beers QD Nonsmoker > 20 yrs ago; 2-3 beers QD in the past; no alcohol presently Problems Problem Type SNOMED Code ICD Code Onset Dates Problem Status W/U Status Risk Notes Problem 109568761 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 (C15.5) Active confirmed Problem Anorexia (35819451) Anorexia (R63.0) Active confirmed Problem History of malignant neoplasm of esophagus (761312572) Personal history of malignant neoplasm of esophagus (Z85.01) Active confirmed Problem Dysphagia (79113397) Dysphagia (R13.10) Active confirmed Problem 203420481 Gastroesophageal reflux disease, esophagitis presence not specified (K21.9) Active confirmed Problem 818688610 Abnormal upper gastrointestinal barium series (R93.3) Active confirmed Problem 81150656 Constipation, unspecified constipation type (K59.00) Active confirmed Problem 46347045802499 Pharyngeal dysphagia (R13.13) Active confirmed Problem 864862476 History of esophageal cancer (Z85.01) Active confirmed Problem 28757466 Hoarseness (R49.0) Active confirmed Problem 58587573 Esophageal dysphagia (R13.10) Active confirmed Problem 084468212 Small bowel obstruction (K56.609) Active confirmed Problem 03127607 Chronic cough (R05.3) Active confirmed Encounters Encounter Location Date Provider Diagnosis [facility] [address] [place] [address] 07/29/2024 Matthew Powell Plan Of Treatment Pending Test Test Name Order Date XR BARIUM SWALLOW, MODIFIED VIDEO 2023 Future Test Test Name Order Date UPPER GI ENDOSCOPY BALLOOON DILATION OF ESOPH 07/28/2018 UPPER GI ENDOSCOPY BALLOOON DILATION OF ESOPH 01/22/2021 Insurance Providers Payer Name Payer Address Payer Phone Subscriber Number Group Number Insured Name Patient Relationship to Insured Coverage Start Date Coverage End Date [facility] [address] [place] [phone] [id number] FUAD FERRELL Self - patient is the insured Medical (General) History Medical History History ICD Code Denies RI,DM,CVA,Lung disease,renal dise ase Prostate cancer--surgery as below HTN Hyperlipidemia Negative screening colonoscopies in 1998 and in 2009 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 Brooks--[facility] [...]
[2024-11-02] VITALS (12 sets, daily range): BP systolic 138–189; BP diastolic 82–97; PULSE 67–85; RESP 16–23; TEMP 36.7–36.8; O2SAT 96–99; BMI 20.4
--- NOTE | ~2024-11-02 | US_ITS ---
History: Esophageal cancer. Brain metastases. Right paratracheal mass. Patient presents for biopsy of right paratracheal mass. Procedures performed: 1. Ultrasound-guided fine-needle aspiration of right paratracheal mass Physician: Mati Campos MD Anesthesia: 8 mL 1% lidocaine for local anesthesia Specimen: Four 22-gauge FNA samples Drain: None Estimated blood loss: None Complications: None Procedure in detail: Informed and written consent was obtained. The patient was positioned supine on ultrasound examination table. Ultrasound of right neck shows heterogeneous largely hypoechoic amorphous mass in the right neck encasing the carotid and jugular veins with evidence of tumor thrombus in the right internal jugular vein. The overlying skin was prepped and draped. Under ultrasound, 1% lidocaine was injected subcutaneously and extended to the mass. Next, under ultrasound, a total of four 22-gauge fine-needle aspiration samples were obtained and provided to cytopathology. A sterile dressing was applied. Summary: Successful ultrasound-guided fine-needle aspiration of right paratracheal mass as described. Electronically signed by: Mo Campos MD 11/02/2024 05:14 PM EDT
[2024-11-02 13:05] LABS: MANUAL DIFF FLAG NO
[2024-11-02 13:08] LABS: Basophils Percent Auto 0.4 % (0-2); Eosinophils Percent Auto 0.6 % (0-4); Hematocrit 46.3 % (42.0-52.0); Hemoglobin 14.8 g/dl (14.0-18.0); Imm Gran Abs Auto 0.01 X10*3/uL (0.00-0.03); Imm Gran Pct Auto 0.2 % (0.0-0.4); Lymphocytes Absolute Auto 1.4 X10*3/uL (1.2-4.9); Lymphocytes Percent Auto 26.6 % (20-40); Mean Corpuscular Hemoglobin 27.9 pg (27.0-33.0); Mean Corpuscular Volume 87.4 fL (80.0-98.0); Monocytes Absolute Auto 0.6 X10*3/uL (0.1-1.2); Neutrophils Absolute Auto 3.3 x10*3/uL (2.0-8.3); Neutrophils Percent Auto 61.2 % (45-73); Platelet Count 223 X10*3/uL (160-400); Red Cell Distribution Width 14.4 % (11.0-16.0); White Blood Count 5.4 X10*3/uL (4.8-10.8)
[2024-11-02 13:12] LABS: Prothrombin Time 11.9 SEC (10.9-12.4)
[2024-11-02 13:22] LABS: Anion Gap 11 (12-20); Blood Urea Nitrogen 9 mg/dL (9-16); Calcium 9.3 mg/dL (8.4-10.2); Carbon Dioxide 28 mmol/L (22-29); Chloride 107 mmol/L (96-108); Estimated Glomerular Filt Rate > 60; Glucose Random 90 mg/dL (60-115); Sodium 142 mmol/L (135-145)
== END 2024-11-02 16:15 | disposition home or self-care (01) ==
PROVIDERS: Pathology Anatomic Pathology & Clinical Pathology; Radiology Diagnostic Radiology; Radiology Vascular & Interventional Radiology; PCP Internal Medicine; Visit Provider Internal Medicine
DX: D38.1 Neoplasm of uncertain behavior of trachea, bronchus and lung (principal); C15.9 Malignant neoplasm of esophagus, unspecified; C79.31 Secondary malignant neoplasm of brain; C44.41 Basal cell carcinoma of skin of scalp and neck; M54.2 Cervicalgia; E53.8 Deficiency of other specified B group vitamins; H02.409 Unspecified ptosis of unspecified eyelid; Z85.46 Personal history of malignant neoplasm of prostate; Z87.891 Personal history of nicotine dependence; Z98.890 Other specified postprocedural states
CPT/HCPCS: 10005; 36415; 76942; 80048; 85025; 85610; 88173; 88305; 88341; 88342; 88360; 99212; J2003; J2250; J3010

== ENCOUNTER → 2024-11-02 14:30 | Outpatient (BNV) | payer MEDICARE, SELFPAY | PROVIDERS: PCP Internal Medicine; Visit Provider Radiology Vascular & Interventional Radiology | DX: C78.39 Secondary malignant neoplasm of other respiratory organs (principal); C15.9 Malignant neoplasm of esophagus, unspecified | CPT/HCPCS: 10005 ==

== ENCOUNTER 2024-11-15 14:37 | Outpatient (AMB) | payer MEDICARE, SELFPAY ==
--- NOTE | 2024-11-15 14:49 | MHC.PC.OV ---
Vital Signs 11/15/24 15:08 Height 5 ft 8 in Weight 134 lb BMI 20.4 BP 126/78 Respiration 14 Pulse 80 Pulse Source Pulse Oximeter Temp 98.2 F Temp Source Temporal Artery Scan Pulse Oximetry (%) 97 Oxygen Delivery Method Room Air Intake Visit Reasons: anorexia; weight loss Protective Signal Superintendent Required: No Accompanied by: Spouse Allergies No Known Allergies [No Known Allergies*] Allergy (Verified 11/15/24 15:45) Medication List - Last Reconciled 11/15/24 by Miky Pierson MD apixaban (Eliquis DVT-PE Treat 30D Start) 5 mg PO BID docusate sodium 100 mg PO BID gabapentin 600 mg PO BEDTIME multivitamin 1 tab PO DAILY omeprazole 40 mg PO BID@0630,1630 ondansetron 8 mg PO Q8H PRN polyethylene glycol 3350 17 grams PO DAILY verapamil ER 240 mg PO DAILY Tobacco use date assessed: 11/15/24 Fall risk assessment: No Falls in past year Last assessed Fall Risk: 11/15/24 Dental Screening Dental Screen Date: 11/15/24 Did you have a dental visit in the last 12 months?: Yes Did you have a dental problem in the last 6 months where you did not have access to dental care?: No Was dental information given to patient?: Patient has dentist [facility] Medical History Ptosis Small bowel obstruction 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 GERD (gastroesophageal reflux disease) Constipation Throat mass Mass of right side of neck Personal history of nicotine dependence History of prostate cancer (~2004) History of small bowel obstruction (~2019) Shingles Vitamin B12 deficiency Diverticulosis (~1998) Osteoarthritis Basal cell carcinoma, scalp/neck Cervical spondylosis Hypercholesterolemia Hypertension Melanoma Esophageal adenocarcinoma (~2017) Surgical History History of hemorrhoidectomy (~1993) History of esophagogastroduodenoscopy (EGD) History of colonoscopy History of meniscectomy of right knee (~2003) History of esophagectomy (~2018) History of jejunostomy tube placement (~2018) History of incisional hernia repair (~2019) History of appendectomy History of prostatectomy (~2004) Family History Son Non-Hodgkin lymphoma Father Prostate cancer Mother No problems noted. Social History Household Members: Spouse Housing: Condominium Are you a primary medical care administrator to a significant other at home: No Do you presently have visiting nurse or other home services: No Alcohol intake: current Alcohol intake frequency: does not drink Alcohol type: beer Patient Tobacco Use Status: Former Tobacco user Years Smoked: 35 e-Cigarette/Vaping Use: Never Used Second Hand Smoke Exposure: No Advance Directives Date on File: 12/04/21 service: Yes Current occupational status: retired Cognitive needs: No Hearing needs: No Vision needs: Yes (rx glasses) Questionnaire PHQ-9 Over the last 2 weeks, how often have you been bothered by any of the following problems? 1. Little interest or pleasure in doing things: not at all 2. Feeling down, depressed, or hopeless: not at all 3. Trouble falling or staying asleep, or sleeping too much: not at all 4. Feeling tired or having little energy: not at all 5. Poor appetite or overeating: not at all 6. Feeling bad about yourself - or that you are a failure or have let yourself or your family down: not at all 7. Trouble concentrating on things, such as reading the newspaper or watching television: not at all 8. Moving or speaking so slowly that other people could have noticed. Or the opposite - being so fidgety or restless that you have been moving around a lot more than usual: not at all 9. Thoughts that you would be better off or of hurting yourself in some way: not at all Total score: 0 Source: Developed by Drs. Matthew Bates, Angela Canada, Liam Lopez and colleagues, with an educational donnell from [employer]. Thrive Questionnaire Date Thrive assessed: 11/15/24 I am a: Patient What is your living situation today?: I have a steady place to live Within the past 12 months, did the food you bought not last and you didn't have the money to get more?: Never true Within the past 12 months, did you worry whether your food would run out before you got money to buy more?: Never true Do you have trouble paying for medicines?: No Do you have trouble getting transportation to medical appointments?: No Do you have trouble paying your heating and electricity bill?: No Do you have trouble taking care of your child, family member or friend?: No Do you have trouble with day-to-day activities such as bathing, preparing meals, shopping, managing finances, etc.?: No Are you currently unemployed and looking for a job?: No Are you interested in more education?: No Please select the resources that you would like help with: None THRIVE Score: 0 AUDIT C Alcohol Use Questionnaire (AUDIT-C) 1. How often do you have a drink containing alcohol?: Never 3. How often do you have six or more drinks on one occasion?: Never Total Score: 0 MATTHEW-7 AMB Questionnaire MATTHEW-7 Date MATTHEW - 7 assessed: 11/15/24 Feeling nervous, anxious, or on edge: 0 = Not at all Not being able to stop or control worryin = Not at all Worrying too much about different things: 0 = Not at all Trouble relaxin = Not at all Being so restless that it is hard to sit still: 0 = Not at all Becoming easily annoyed or irritable: 0 = Not at all Feeling afraid as if something awful might happen: 0 = Not at all Total MATTHEW-7 score (0-4 normal; 5-9 mild; 10-14 moderate; 15-21 severe): 0 Source: Developed by Drs. Matthew Bates, Angela Canada, Liam oLpez and colleagues, with an educational donnell from [employer]. Physical exam (Primary Care) Vital Signs: Last Vital Signs Temp 98.2 F 11/15/24 15:08 Pulse 80 11/15/24 15:08 Resp 14 11/15/24 15:08 BP 126/78 11/15/24 15:08 Pulse Ox 97 11/15/24 15:08 Oxygen Delivery Method Room Air 11/15/24 15:08 BMI result Body Mass Index 20.4 Tobacco/Smoking Status: Tobacco use Status Tobacco use date assessed 11/15/24 11/15/24 14:51 Patient Tobacco Use Status Former Tobacco user 11/15/24 14:51 e-Cigarette/Vaping Use Never Used 11/15/24 14:51 PHQ-9: PHQ-9 Score PHQ-9: Total score 0 11/15/24 15:15 Thrive Assessment: Date of Thrive Assessment Date Thrive assessed 11/15/24 11/15/24 14:51 Coding Level of Care Code Est Pt Level 4 (53879) Complex EM visit Add On G2211 Diagnoses Adult failure to thrive R62.7 Assessment & Plan Assessment & Plan (1) Adult failure to thrive: Code(s): R62.7 - Adult failure to thrive Category: Medical Plan: Underlying esophageal carcinoma with mets. Will consider starting Megace. Option of G tube feeding suggested. Statin refilled Plan History of Present Illness The patient is an 79-year-old male presenting with unintentional weight loss, having lost approximately 50 pounds since June. Despite feeling hungry, he often experiences early satiety and decreased appetite throughout the day, contributing to the weight loss. The use of nutritional supplements like Ensure has led to gastrointestinal discomfort, motivating the consideration of alternatives such as almond or oat milk. Recently, he gained five pounds but struggles to maintain adequate food intake. His medical history is significant for esophageal cancer, which has impaired his swallowing ability and contributed to his decreased appetite. He underwent surgery with an incision that remains sore and troublesome. He spent 12 days in the hospital post-operatively and has experienced a decreased appetite since. Follow-up with his oncologist is scheduled, and post-surgical pain evaluations are ongoing. Social History - Nutritional intake: Difficulty with sufficient and consistent dietary intake; adverse effects with some nutritional supplements. - Weight management: Reports significant weight loss with issues maintaining caloric intake. Review of Systems - Gastrointestinal: Reports early satiety, decreased appetite, and discomfort with certain nutritional supplements. Physical Exam General: Appearance normal, both eyes and all related structures Nutritional Appearance: Lost a lot of weight, patient reports a loss of appetite Orientation/consciousness: Patient oriented x3 Limitations: No limitations Head: Normal to inspection Neck: Normal visual inspection Chest: Normal palpation of entire chest wall Respiratory: Normal respiratory effort Neurology: Patient oriented x3 Results Plan The plan includes alternative nutritional options, including almond or oat milk, to mitigate gastrointestinal discomfort with milk-based products, while continuing weight monitoring and managing dietary intake given early satiety. The patient will follow up with his oncologist and have post-surgical pain evaluated. An appetite stimulant like Megace is under consideration, awaiting further discussion. The patient was advised to try different beverage options to boost caloric intake and support weight gain. Patient was informed and verbally consented to the use of an ambient scribe for clinic note documentation during this visit. Discussion Notes I discussed the patient's significant weight loss and nutritional concerns, advising exploration of non-dairy alternatives such as almond or oat milk to avoid gastrointestinal discomfort caused by conventional supplements like Ensure. The plan for increased caloric intake through sipping beverages throughout the day was outlined, emphasizing the importance of maintaining nutritional intake despite early satiety. Scheduled follow-ups with the oncologist and further pain management consultations were covered. I mentioned an appetite stimulant as a potential future consideration, pending further review. Instructions were given to monitor and adapt the patient's dietary strategies as needed. Patient Instructions - Try almond or oat milk to avoid gastrointestinal discomfort and increase caloric intake. - Monitor weight and dietary intake regularly. - Follow up with your oncologist and attend scheduled pain management consultations. 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 - Sip nutrient-dense beverages throughout the day to maintain adequate intake.
[2024-11-15 15:08] VITALS: BP 126/78; PULSE 80; RESP 14; TEMP 36.8; O2SAT 97; BMI 20.4
--- OUTSIDE RECORDS SUMMARY | 2024-11-15 17:45 | XMS_ITS ---
Author Organization [facility] Address [address] [place] [address] Care Team Providers Care Public Relations Name Role Phone Joycelyn (RETIRED) Matthew DYER Primary Care Provid er Unavailable Matthew Powell Unavailable [phone] REASON FOR VISIT requesting soon appt pt with dysphagia/hx of esophageal ca Encounters Encounter Location Date Provider Diagnosis [facility] [address] [place] [phone] 08/12/2023 Matthew Powell Plan Of Treatment No Information Progress Notes * FUAD SHIPMAN LDOB:[birth year] (77 yo M)Acc No.[id number]:08/12/2023 Patient:?FUAD SHIPMAN :1945???Age:77 Y???Sex:Male Address:[address] [place] [address], [place] [address] * true * Date:? Generated for Romii raquel/Alyse/eTransmitting on:?11/15/2024 05:44 PM EDT
--- OUTSIDE RECORDS SUMMARY | 2024-11-15 17:45 | XMS_ITS ---
Author Organization [facility] Address [address] [place] [address] Care Team Providers Care Crate Tier Name Role Phone Joycelyn (RETIRED) Matthew DYER Primary Care Provid er Unavailable Matthew Powell Unavailable [phone] REASON FOR VISIT pathology Encounters Encounter Location Date Provider Diagnosis [facility] [address] [place] [address] 07/29/2024 Matthew Powell Plan Of Treatment No Information Progress Notes * FUAD SHIPMAN LDOB:[birth year] (78 yo M)Acc No.[id number]:07/29/2024 Patient:?FUAD SHIPMAN :1945???Age:78 Y???Sex:Male Address:[address] [place] [address], [place] [address] * true * Date:? Generated for Romii raquel/Alyse/eTransmitting on:?11/15/2024 05:44 PM EDT
--- OUTSIDE RECORDS SUMMARY | 2024-11-15 17:45 | XMS_ITS | Clinical Summary ---
Author Organization [facility] Address [address] [place] [address] Phone Care Team Providers Care Gauge And Weigh Machine Operator Name Role Phone Unavailable Primary Care Provider Unavailabl e Encounters Date Type Department Care Team Description 10/14/2024 1:30 PM EST - 10/14/2024 11:59 PM EST Hospital Encounter [facility] MRI [address] [place] [address] Malignant neoplasm of esophagus, unspecified [...] Vaccines (1 of 2) 1962 RSV Immunization Adult Patients (1 - 1-dose 75+ series) 2018 Cholesterol [...] age to complete this topic Meningococcal B Vaccine Aged Out No l onger eligible based on patient's age to complete [...] to contact Dr. Isabella Brooks via the [employer] system, secure text messaging system, and via telephone regarding the above findings were unsuccessful. -------- FINAL REPORT -------- Dictated By: Samuel Thompson Dictated Date: 10/14/2024 15:01 ET Assigned Physician: Samuel Thompson Reviewed and Electronically Signed By: Samuel Thompson Signed Date: 10/14/2024 15:18 ET Workstation ID: [id number] Transcribed By: Self Edit Transcribed Date: 10/14/2024 [...] to contact Dr. Isabella Brooks via the [employer] system, innRoad messaging system, and via telephone regarding the above findings wereunsuccessful. -------- FINAL REPORT -------- Dictated By: Samuel Thompson Dictated Date: 10/14/2024 15:01 ET Assigned Physician: Samuel Thompson Reviewed and Electronically Signed By: Samuel Thompson Signed Date: 10/14/2024 15:18 ET Workstation ID: [id number] Transcribed By: Self Edit Transcribed Date: 10/14/2024 15:01 ET Isabella Brooks MD IMG MRI PROCEDURES Final Result from Last 3 Months
--- OUTSIDE RECORDS SUMMARY | 2024-11-15 17:45 | XMS_ITS | Data Portability ---
Author Organization [place] [facility] Address [address] [address] Care Team Providers Care Fish Housekeeper Name Role Phone EDGARD MARCELINO Primary Care Provider [phone] Assessment No assessment recorded. Plan of Treatment [...] Organization Details Recorded Time Vocal cord paralysis 347337793 Active 2023 EDGARD VERDIN MD 100 [facility] 100, [facility] [place], [address] , [place] [facility] 4 12:45:16 Chronic hoarsenes s 95424960919 05 Active 2023 EDGARD VERDIN MD 100 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, unilatera l; Note: Date Diagnosed : 11/12/2023 1:50 PM (J38.01) Not Available [facility] 4 02:53:42 Dysphagia 75544217 Active 2023 Dysphagia , unspecifi ed; Note: Date Diagnosed : 11/12/2023 1:50 PM (R13.10) Not Available [facility] 4 02:53:43 Dysphonia 06667913 Active 2023 Other voice and resonance disorders ; Note: Date Diagnosed : 11/12/2023 1:50 PM (R49.8) Not Available [facility] 4 02:53:43 Finding of resonance of voice 361613533 Active 2023 Other voice and resonance disorders ; Note: Date Diagnosed : 11/12/2023 1:50 PM (R49.8) Not Available [facility] 4 02:53:43 History of malignant neoplasm of esophagus 369373068 Active 2023 Personal history of malignant neoplasm of esophagus ; Note: Date Diagnosed : 11/12/2023 1:50 PM (Z85.01) Not Available [facility] 4 02:53:44 Chronic sore throat 088570362 Active 2024 EDGARD VERDIN MD 100 [facility] 100, [place], [address] , [place] [facility] 5 14:23:59 Oropharyn geal dysphagia 00976780 Active 2024 EDGARD VERDIN MD 100 [facility] 100, [place], [address] , [place] [facility] 5 14:25:56 Problem Notes None recorded. Procedures Surgical History Date Name Laterality Status Provider Name and Address Organization Details Recorded Time 5 FFL_RE completed EDGARD VERDIN MD 100 [facility],[address], [address], [facility] 09/06/2024 14:23:53 4 FFL_RE completed EDGARD VERDIN MD 100 [facility],[address], [address], [place] [facility] 03/03/2024 12:41:19 4 injection of vocal cords completed EDGARD VERDIN MD 100 [facility],[address], [address], [facility] 03/03/2024 12:39:31 Imaging Results Imaging Date [...] lisinopril 20 mg tablet active Medication ID: [id number] Bran d Name: lisinopril Send Method: E-Prescribe [...] Updated DateTime 03/03/2024 172.72 cm 25.1 kg/m2 38078.74 g Guillermo Lim [facility] 03/03/2024 12:30:51 Date Recorded Body height Body mass index (BMI) Body weight Provider Name and Address Organization Details Last Updated DateTime 09/06/2024 172.72 cm 25.1 kg/m2 24288.74 g Guillermo Lim [facility] 09/06/2024 14:06:19 Social History None recorded. Functional Status None recorded. Mental Status None recorded. Family History Nothing Reported. Medical History No medical history recorded. Past Encounters Encounter ID Performer Location Encounter Start Date Encounter Closed Date Diagnosis/Indication Diagnosis SNOMED-CT Code Diagnosis ICD10 Code Diagnosis Note [id number] EDGARD VERDIN MD [facility] [address] [address] 03/03/2024 11:34:12 03/03/2024 12:49:27 Vocal cord paralysis 000069818 J38.01 Laryngosoc py notable for increased bulk. R cord is still paralyzed. He got a good result. I recommend he f/u in 6 months and call me sooner if his voice worsens. Chronic hoarseness 21469 40977 105 R49.0 improved since surgery but still hoarse [id number] EDGARD VERDIN MD [facility] [address] [address] 09/06/2024 13:52:52 09/06/2024 14:39:28 Vocal cord paralysis 677613807 J38.01 Laryngosco py notable for R cord is still paralysis with a glottic gap. His voice is still serviceabl e but he has lost some of the bulk of the vocal cord. Given his recent other surgeries we agreed it doesn't make sense to have more surgery at this point. We will observe for now. Chronic hoarseness 36676 75501 105 R49.0 stable Chronic sore throat 2754 65341 J31.2 no obvious lesion. may be neuropathi c as he has right eye, throat, neck and shoulder pain. I suggested he see a neurologis t. I also discussed a CT scan but we agreed to defer. Oropharyng eal dysphagia 84902714 R13.12 I discussed a repeat swallow study. [...] - MEDICARE ADVANTAGE PLAN (MEDICARE REPLACEMENT HMO) [id number] Yoseph Orellana [id number] Yoseph Orellana 09/06/2024 1 [employer] - MEDICARE ADVANTAGE PLAN (MEDICARE REPLACEMENT HMO) [id number] Yoseph Orellana [id number] Yoseph Orellana Notes Date Note Type Note [...] per day. Denies heartburn. EDGARD VERDIN MD [address] [place] [address], [place], [address], [facility] - [facility] 09/06/2024 14:28:19
--- OUTSIDE RECORDS SUMMARY | 2024-11-15 17:45 | XMS_ITS | Patient Health Record ---
Author Organization [facility] Address [address] [place] [address] Care Team Providers Care Massage Therapist Name Role Phone Joycelyn (RETIRED) Matthew DYER Primary Care Provid er Unavailable Matthew Powell Unavailable [phone] Allergies No Known Allergies Results Component Value Reference Range Notes Pathology Reviewed date:07/29/2024 07:52:21 AM Interpretation: Performing Lab:[facility], [address] [place] [address] Notes/Report: Name: Stevo Orellana Age/Sex: 78/M : 1945 Unit#: [id number] Attend Dr: Macey Bowden MD Re07/24/24 Status : DIS IN Location: [facility] 446-1 Disch: 07/27/24 SPEC : [id number] RECD : 07/26/24 STATUS: RYAN CANNON NUM: [id number] BLAYNE: 07/26/24-[address]: Michael Mast MD [...] AB/PAS stains Copies To: Michael Mast MD [facility] [address] [place] [address] [address] [place] [address] Matthew Hirsch DO [facility] [address] [place] [address] Macey Bowden MD [address] [place] [address] CONTINUED ON NEXT PAGE Name: Stevo Orellana L Age/Sex: 78/M : 1945 Unit#: [id number] Attend Dr: Macey Bowden MD Re07/24/24 Status : DIS IN Location: [facility] 446-1 Disch: 07/27/24 SPEC : [id number] RECD : 07/26/24-121 STATUS: RYAN CANNON NUM: [id number] BLAYNE: 07/26/24 [facility] DR: Michael Mast MD ENTERED: 07/26/24-07 29 [...] Problem Status W/U Status Risk Notes Problem 745653744 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 (C15.5) Active confirmed Problem Anorexia (48983624) Anorexia (R63.0) Active confirmed Problem History of malignant neoplasm of esophagus (672762010) Personal history of malignant neoplasm of esophagus (Z85.01) Active confirmed Problem Dysphagia (36611322) Dysphagia (R13.10) Active confirmed Problem 456238525 Gastroesophageal reflux disease, esophagitis presence not specified (K21.9) Active confirmed Problem 422352419 Abnormal upper gastrointestinal barium series (R93.3) Active confirmed Problem 40877079 Constipation, unspecified constipation type (K59.00) Active confirmed Problem 00128124101099 Pharyngeal dysphagia (R13.13) Active confirmed Problem 679886932 History of esophageal cancer (Z85.01) Active confirmed Problem 86869240 Hoarseness (R49.0) Active confirmed Problem 14871627 Esophageal dysphagia (R13.10) Active confirmed Problem 418976908 Small bowel obstruction (K56.609) Active confirmed Problem 92113328 Chronic cough (R05.3) Active confirmed Encounters Encounter Location Date Provider Diagnosis [facility] [address] [place] [address] 07/29/2024 Matthew Powell Plan Of Treatment Pending [...] Insured Coverage Start Date Coverage End Date [facility] [address] [place] [address] [id number] FUAD FERRELL Self - patient is the insured Medical (General) History Medical History History ICD Code Denies [place],DM,CVA,Lung disease,renal dise ase Prostate cancer--surgery as below HTN Hyperlipidemia Negative screening colonoscopies in 1998 and in 2009 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 Brooks--surgery with Dr. Garvey at [facility] 02/2019 SBO 02/2020--treated with NG tube--normal SB [...]
--- OUTSIDE RECORDS SUMMARY | 2024-11-15 17:45 | XMS_ITS ---
Author Organization [facility] Address [address] [place] [address] Care Team Providers Care Rn Ostomy Name Role Phone Joycelyn (RETIRED) Matthew DYER Primary Care Provid er Unavailable Matthew Poewll Unavailable [phone] Allergies No Known Allergies REASON FOR VISIT [...] Problem Status W/U Status Risk Notes Problem 12092021 Hoarseness (R49.0) Active confirmed Problem 31208662849576 Pharyngeal dysphagia (R13.13) Active confirmed Problem 83504260 Chronic cough (R05.3) Active confirmed Vital Signs Temperature 97.7 degrees Fahrenheit 08/13/19 24 Blood pressure systolic 00 mm Hg 08/13/19 24 Blood pressure diastolic 00 mm Hg 024 Height 68 in 08/13/2023 Weight 165 lbs 08/13/2023 BMI 25.09 kg/m2 08/13/2023 Encounters Encounter Location Date Provider Diagnosis [facility] [address] [place] [address] 08/13/2023 Matthew Powell Hoarseness R49.0 ; Pharyngeal [...] * FUAD SHIPMAN LDOB:[birth year] (78 yo M)Acc No.[id number]:08/13/2023 Progress Notes Patient:FUAD GLASGOW Provider:?Matthew Powell MD :1945???Age:77 Y???Sex:Male Darren e:08/13/2023 Address:[address] [place], [place] [address] Pcp:Matthew Hirsch, DO Subjective: * Chief Complaints: [...] the past year??No,?Points?0,?Interpretation?Negative.?Miscellaneous:?Marital status: . 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 ???Nonsmoker >20 yrs ago; 2-3 beers QD [...] pm * * Procedure Codes:?1036F TOBAC CO NON-LOOPE7118 BP SCR NOT PRFRM REC REASON NOS * Preventive Medicine:? ??Counseling:?Care goal follow-up plan:?Above Normal BMI Follow-up?Giving encouragement to exercise,?BMI management provided?Yes.? * Follow Up:?prn * * Sign off status: Completed true * Provider:?Matthew Powell MD Date:? 024 Generated for Jamey garcía/Alyse/eTransmitting on:?11/15/2024 05:45 PM EDT History and Physical Notes * HPI [...]
== END 2024-11-15 15:46 | disposition home or self-care (01) ==
LOC: HO.HMCSH 14:37
PROVIDERS: PCP Internal Medicine; Visit Provider Internal Medicine
DX: R62.7 Adult failure to thrive (principal)

== ENCOUNTER → 2024-11-15 14:37 | Outpatient (BNVA) | payer MEDICARE, SELFPAY | PROVIDERS: PCP Internal Medicine; Visit Provider Internal Medicine | DX: R63.0 Anorexia (principal); R62.7 Adult failure to thrive; C15.9 Malignant neoplasm of esophagus, unspecified; Z68.20 Body mass index [BMI] 20.0-20.9, adult | CPT/HCPCS: 96127; 99212 ==

== ENCOUNTER 2024-11-16 07:45 | Outpatient (REF) | payer MEDICARE, SELFPAY ==
--- NOTE | ~2024-11-16 | FL_ITS ---
EXAMINATION: XR FLUOROSCOPY ESOPHAGRAM CLINICAL INFORMATION: Recurrent esophageal cancer, odynophagia and dysphagia. Patient has history of distal esophagectomy with gastric pull-through procedure. CT examination shows recurrent mass surrounding the right brachiocephalic trunk, extending cephalad in the right anterior cervical space abutting the right carotid sheath structures to the level of the thyroid. Tumor thrombus evident in the right internal jugular vein.? Involvement of the cervical esophagus. Refer to the dedicated CT soft tissue neck report 10/12/2024. COMPARISON: CT soft tissue neck 10/12/2024. CT chest 10/12/2024. CT abdomen and pelvis 07/24/2024. Fluoroscopy small bowel follow-through 07/01/2024. Barium swallow examination 07/29/2023. TECHNIQUE: Fluoroscopic air contrast esophagram examination was performed utilizing standard techniques with thin and thick barium and effervescent granules. Numerous spot images were obtained. Several fluoroscopic image hold cine sequences were also obtained. FINDINGS: Right chest port noted in place, tip in the cavoatrial junction. Lateral cine images of the oropharynx and hypopharynx demonstrate delayed swallow mechanism with suboptimal epiglottic inversion, however normal soft palate elevation. Transient laryngeal penetration, without glottic or subglottic aspiration identified. No nasopharyngeal reflux present. Hypopharyngeal structures appear normal without evidence of mass or diverticulum. There was no significant cricopharyngeal achalasia. Dual and single contrast images of the esophagus demonstrate a moderate mildly irregular narrowing of the cervical esophagus just below the upper esophageal sphincter (RF 1-1, image 49; RF 1-3, image 38; RF 1-4, image 31). This appears to correlate with the region of possible soft tissue encasement on CT exam. More distally, the remaining esophagus demonstrates a granular mucosal pattern suggesting esophagitis. No discrete mass, ulcer, or large filling defect. The gastroesophageal anastomotic site is unremarkable. Esophageal peristalsis was markedly disordered and weekend. Evaluation of the gastric pull-through is inherently limited due to underdistention. The majority of the stomach is supradiaphragmatic. There is a suggestion of rugal fold thickening extending to the subdiaphragmatic stomach. No gross mass or ulceration identified. Small oval filling defects present, likely hyperplastic polyps. Contrast freely passed into the gastric antrum and duodenal bulb without delay. Single and air-contrast images of the duodenal bulb demonstrate no abnormality. The duodenal sweep has a normal appearance, course, and mucosal fold appearance. FLUOROSCOPY TIME: 3 minutes, 53 seconds Number of Spot Images:13 Number of cines obtained: 16 DOSE AREA PRODUCT: 1795 uGy-m2 (microgray-meter squared) FL/FL barium swallow with air IMPRESSION: 1. Patient is status post distal esophagectomy and gastric pull-through procedure. 2. Transient laryngeal penetration noted on thick and thin barium, without gross glottic or subglottic aspiration. 3. Mildly irregular moderate narrowing of the cervical esophagus just below the upper esophageal sphincter. This appears to correlate with the region of possible soft tissue encasement on CT exam. Tumor involvement is suspected, likely a metastasis with encasement as opposed to arising from the esophagus itself. 4. Markedly weakened and disordered esophageal peristalsis. The remaining esophagus has a granular mucosal pattern suggesting esophagitis. 5. Gastric pull-through is inherently limited due to position and underdistention. It demonstrates mild rugal fold thickening suggesting gastritis. Small filling defects likely hyperplastic polyps. No gross mass or ulcer identified. 6. Contrast freely passes from the antrum into the duodenum. No outlet obstruction. Given above findings, correlating with EGD is recommended. Electronically signed by: Martin Acosta MD 11/16/2024 09:55 AM EDT RP
--- OUTSIDE RECORDS SUMMARY | 2024-11-16 07:49 | XMS_ITS ---
Author Organization [facility] Address [address] [place] [address] Care Team Providers Care Slip Feeder Name Role Phone Joycelyn (RETIRED) Matthew DYER Primary Care Provid er Unavailable Matthew Powell Unavailable [phone] Allergies No Known Allergies REASON FOR VISIT [...] Problem Status W/U Status Risk Notes Problem 54424023 Hoarseness (R49.0) Active confirmed Problem 89679753518141 Pharyngeal dysphagia (R13.13) Active confirmed Problem 47265548 Chronic cough (R05.3) Active confirmed Vital Signs Temperature 97.7 degrees Fahrenheit 08/13/19 24 Blood pressure systolic 00 mm Hg 08/13/19 24 Blood pressure diastolic 00 mm Hg 024 Height 68 in 08/13/2023 Weight 165 lbs 08/13/2023 BMI 25.09 kg/m2 08/13/2023 Encounters Encounter Location Date Provider Diagnosis [facility] [address] [place] [address] 08/13/2023 Matthew Powell Hoarseness R49.0 ; Pharyngeal [...] * FUAD SHIPMAN LDOB:[birth year] (78 yo M)Acc No.[id number]:08/13/2023 Progress Notes Patient:FUAD GLASGOW Provider:?Matthew Powell MD :1945???Age:77 Y???Sex:Male Darren e:08/13/2023 Address:[address] [place], [place] [address] Pcp:Matthew Hirsch, DO Subjective: * Chief Complaints: [...] the past year??No,?Points?0,?Interpretation?Negative.?Miscellaneous:?Marital status: . 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 ???Nonsmoker >20 yrs ago; 2-3 beers QD [...] pm * * Procedure Codes:?1036F TOBAC CO NON-FEYSQ6742 BP SCR NOT PRFRM REC REASON NOS * Preventive Medicine:? ??Counseling:?Care goal follow-up plan:?Above Normal BMI Follow-up?Giving encouragement to exercise,?BMI management provided?Yes.? * Follow Up:?prn * * Sign off status: Completed true * Provider:?Matthew Powell MD Date:? 024 Generated for Jamey garcía/Alyse/eTransmitting on:?11/16/2024 07:49 AM EDT History and Physical Notes * [...]
--- OUTSIDE RECORDS SUMMARY | 2024-11-16 07:49 | XMS_ITS | Clinical Summary ---
Author Organization [facility] Address [address] [place] [address] Phone Care Team Providers Care Director Of [employer]ance [employer] Name Role Phone Unavailable Primary Care Provider Unavailabl e Encounters Date Type Department Care Team Description 10/14/2024 1:30 PM EST - 10/14/2024 11:59 PM EST Hospital Encounter [facility] MRI [address] [place] [address] Malignant neoplasm of esophagus, unspecified [...] to contact Dr. Isabella Brooks via the [employer] system, secure text messaging system, and via telephone regarding the above findings were unsuccessful. -------- FINAL REPORT -------- Dictated By: Samuel Thompson Dictated Date: 10/14/2024 15:01 ET Assigned Physician: Samuel Thompson Reviewed and Electronically Signed By: Samuel Thompson Signed Date: 10/14/2024 15:18 ET Workstation ID: [id number] Transcribed By: Self Edit Transcribed Date: 10/14/2024 [...] to contact Dr. Isabella Brooks via the [employer] system, [employer]okit messaging system, and via telephone regarding the above findings wereunsuccessful. -------- FINAL REPORT -------- Dictated By: Samuel Thompson Dictated Date: 10/14/2024 15:01 ET Assigned Physician: Samuel Thompson Reviewed and Electronically Signed By: Samuel Thompson Signed Date: 10/14/2024 15:18 ET Workstation ID: [id number] Transcribed By: Self Edit Transcribed Date: 10/14/2024 15:01 ET Isabella Brooks MD IMG MRI PROCEDURES Final Result from Last 3 Months
--- OUTSIDE RECORDS SUMMARY | 2024-11-16 07:49 | XMS_ITS ---
Author Organization [facility] Address [address] [place] [address] Care Team Providers Care Substation Operator Transforming Name Role Phone Joycelyn (RETIRED) Matthew DYER Primary Care Provid er Unavailable Matthew Powell Unavailable [phone] REASON FOR VISIT pathology Encounters Encounter Location Date Provider Diagnosis [facility] [address] [place] [address] 07/29/2024 Matthew Powell Plan Of Treatment No Information Progress Notes * FUAD SHIPMAN LDOB:[birth year] (78 yo M)Acc No.[id number]:07/29/2024 Patient:?FUAD SHIPMAN :1945???Age:78 Y???Sex:Male Address:[address] [place] [address], [place] [address] * true * Date:? Generated for Romii raquel/Alyse/eTransmitting on:?11/16/2024 07:49 AM EDT
--- OUTSIDE RECORDS SUMMARY | 2024-11-16 07:49 | XMS_ITS | Patient Health Record ---
Author Organization [facility] Address [address] [place] [address] Care Team Providers Care Flame Degreaser Name Role Phone Joycelyn (RETIRED) Matthew DYER Primary Care Provid er Unavailable Matthew Powell Unavailable [phone] Allergies No Known Allergies Results Component Value Reference Range Notes Pathology Reviewed date:07/29/2024 07:52:21 AM Interpretation: Performing Lab:[facility], [address] [place] [address] Notes/Report: Name: Stevo Orellana Age/Sex: 78/M : 1945 Unit#: [id number] Attend Dr: Macey Bowden MD Re07/24/24 Status : DIS IN Location: [facility] 446-1 Disch: 07/27/24 SPEC : [id number] RECD : 07/26/24 STATUS: RYAN CANNON NUM: [id number] BLAYNE: 07/26/24-[address]: Michael Mast MD [...] in formalin labeled ?antral bx? are 2 cronell-pink irregular tissue fragments measuring 0.2 and 0.3 cm, subm itted in toto in a cassette labeled A. CEDS Special studies orde red and performed: Immunostain for H. pylori; AB/PAS stains Copies To: Michael Mast MD [facility] [address] [place] [address] [address] [place] [address] Matthew Hirsch DO [facility] [address] [place] [address] Macey Bowden MD [address] [place] [address] CONTINUED ON NEXT PAGE Name: Stevo Orellana L Age/Sex: 78/M : 1945 Unit#: [id number] Attend Dr: Macey Bowden MD Re07/24/24 Status : DIS IN Location: [facility] 446-1 Disch: 07/27/24 SPEC : [id number] RECD : 07/26/24-121 STATUS: RYAN CANNON NUM: [id number] BLAYNE: 07/26/[address] [facility] DR: Michael Mast MD ENTERED: 07/26/24-07 [...] Problem Status W/U Status Risk Notes Problem 031930992 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 (C15.5) Active confirmed Problem Anorexia (24768325) Anorexia (R63.0) Active confirmed Problem History of malignant neoplasm of esophagus (246846815) Personal history of malignant neoplasm of esophagus (Z85.01) Active confirmed Problem Dysphagia (14424657) Dysphagia (R13.10) Active confirmed Problem 439051587 Gastroesophageal reflux disease, esophagitis presence not specified (K21.9) Active confirmed Problem 575922614 Abnormal upper gastrointestinal barium series (R93.3) Active confirmed Problem 68477196 Constipation, unspecified constipation type (K59.00) Active confirmed Problem 77969902490654 Pharyngeal dysphagia (R13.13) Active confirmed Problem 770153711 History of esophageal cancer (Z85.01) Active confirmed Problem 01812688 Hoarseness (R49.0) Active confirmed Problem 73464635 Esophageal dysphagia (R13.10) Active confirmed Problem 385131419 Small bowel obstruction (K56.609) Active confirmed Problem 88166811 Chronic cough (R05.3) Active confirmed Encounters Encounter Location Date Provider Diagnosis 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 Brooks--surgery with Dr. Garvey [place] [facility] 02/2019 SBO 02/2020--treated with NG tube--normal SB [...]
--- OUTSIDE RECORDS SUMMARY | 2024-11-16 07:49 | XMS_ITS ---
Author Organization [facility] Address [address] [place] [address] Care Team Providers Care Research Group Director Name Role Phone Joycelyn (RETIRED) Matthew DYER Primary Care Provid er Unavailable Matthew Powell Unavailable [phone] REASON FOR VISIT requesting soon appt pt with dysphagia/hx of esophageal ca Encounters Encounter Location Date Provider Diagnosis [facility] [address] [place] [address] 08/12/2023 Matthew Powell Plan Of Treatment No Information Progress Notes * FUAD SHIPMAN LDOB:[birth year] (77 yo M)Acc No.[id number]:08/12/2023 Patient:?FUAD SHIPMAN :1945???Age:77 Y???Sex:Male Address:[address] [place] [address], [place] [address] * true * Date:? Generated for Romii raquel/Alyse/eTransmitting on:?11/16/2024 07:49 AM EDT
== END 2024-11-16 07:46 | disposition home or self-care (01) ==
LOC: HO.XRAY 07:45
PROVIDERS: PCP Internal Medicine; Visit Provider Internal Medicine
DX: R13.10 Dysphagia, unspecified (principal)
CPT/HCPCS: 74221

== ENCOUNTER → 2024-11-16 07:47 | Outpatient (BNV) | payer MEDICARE, SELFPAY | PROVIDERS: PCP Internal Medicine; Visit Provider Radiology Diagnostic Radiology | DX: R13.10 Dysphagia, unspecified (principal) | CPT/HCPCS: 74221 ==

== ENCOUNTER 2024-11-23 14:21 | Outpatient (AMB) | payer MEDICARE, SELFPAY ==
--- NOTE | 2024-11-23 14:23 | A.OFFVIS_ITS ---
Vital Signs 11/23/24 14:34 Height 5 ft 8 in Weight 134 lb BMI 20.4 BP 129/69 Blood Pressure Location Rt radial Position Sitting Pulse 90 Intake Visit Reasons: needs J tube placement Intake Note: Patient referred by Dr. Thorne for J-tube placement to start chemotherapy. Dx: Esophageal cancer. Patient c/o: difficulty swallowing. Lost 50lbs since June. 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 GERD (gastroesophageal reflux disease) Constipation Throat mass Mass of right side of neck Personal history of nicotine dependence History of prostate cancer (~2004) History of small bowel obstruction (~2019) Shingles Vitamin B12 deficiency Diverticulosis (~1998) Osteoarthritis Basal cell carcinoma, scalp/neck Cervical spondylosis Hypercholesterolemia Hypertension Melanoma Esophageal adenocarcinoma (~2017) Surgical History (Updated 12/08/24 @ 12:31 by Tess Elliott RN) Hx of exploratory laparotomy History of hemorrhoidectomy (~1993) History of esophagogastroduodenoscopy (EGD) History of colonoscopy History of meniscectomy of right knee (~2003) History of esophagectomy (~2018) History of jejunostomy tube placement (~2018) History of incisional hernia repair (~2019) History of appendectomy History of prostatectomy (~2004) Family History Son Non-Hodgkin lymphoma Father Prostate cancer Mother No problems noted. Social History Household Members: Spouse Housing: Condominium Are you a primary family day care provider to a significant other at home: No Do you presently have visiting nurse or other home services: Yes (nursing) Alcohol intake: current Alcohol intake frequency: a few times a week Alcohol type: beer Patient Tobacco Use Status: Former Tobacco user Years Smoked: 35 e-Cigarette/Vaping Use: Never Used Second Hand Smoke Exposure: No Advance Directives Date on File: 12/04/21 service: Yes Current occupational status: retired Cognitive needs: No Hearing needs: No Vision needs: Yes (rx glasses) Physical Exam Vital Signs: Last Vital Signs Pulse 90 11/23/24 14:34 BP 129/69 11/23/24 14:34 BMI result Body Mass Index 20.4 Assessment & Plan Assessment & Plan (1) Esophageal cancer: Code(s): C15.9 - Malignant neoplasm of esophagus, unspecified Category: Medical Plan: He was referred for me for jejunostomy tube placement because of his dysphagia from his esophageal cancer. I had a long discussion with him about the technique of open jejunostomy tube placement. I explained to him the risks of this procedure including but not limited to bleeding, infections, injury to bowel, tube dislodgement, obstruction, inherent risks of anesthesia including respiratory failure, as well as the benefits and alternatives. He understands that he presents with significant perioperative risks in view of his multiple comorbid conditions. He has had multiple abdominal surgeries and had significant adhesions noted on laparotomy last June, and this presents additional perioperative risks as well. He understands thatI anticipate the procedure to be technically difficult He says he understands. He wants to proceed with the surgery as he says he has been losing weight because of the dysphagia and implies he is desperate and is willing to go through the risks of surgery.. His was with him during the visit I will also set him up for a preadmission testing in view of his multiple medical problems. I have also reviewed the previous laparotomy with Dr. Alberto and he states that the abdomen was not frozen and that adequate length of mobile mall bowel should be available for placement of the feeding tube. Coding Level of Care Code Est Pt Level 4 (62423) Diagnoses Esophageal cancer C15.9
[2024-11-23 14:34] VITALS: BP 129/69; PULSE 90; BMI 20.4
--- OUTSIDE RECORDS SUMMARY | 2024-11-23 17:07 | XMS_ITS | Clinical Summary ---
Author Organization [facility] Address [address] [place] [address] Phone Care Team Providers Care Instrument Checker Name Role Phone Unavailable Primary Care Provider Unavailabl e Encounters Date Type Department Care Team Description 10/14/2024 1:30 PM EST - 10/14/2024 11:59 PM EST Hospital Encounter [facility] MRI [address] [place] [address] Malignant neoplasm of esophagus, unspecified (CMS/HCC V24, CMS/HCC V28); Unspecified ptosis of right eyelid Discharge Disposition: [...] PM EST Malignant neoplasm of esophagus, unspecified (CMS/HCC V24, CMS/HCC V28) Unspecified ptosis of right eyelid from Last 3 Months Results * MR Brain wo and w Contrast (10/14/2024 2:38 PM EST) Anatomical Region Laterality Modality Head and Neck Magnetic Resonan ce 10/14/2024 3:01 PM EST Impressions 10/14/2024 3:18 PM EST Leptomeningeal enhancement along the high right anterior cerebellar folia. ??This could be inflammatory or neoplastic. Attempts to contact Dr. Isabella Brooks via the [employer]an system, secure text messaging system, and via telephone regarding the above findings were unsuccessful. -------- FINAL REPORT -------- Dictated By: Samuel Thompson Dictated Date: 10/14/2024 15:01 ET Assigned Physician: Samuel Thompson Reviewed and Electronically Signed By: Samuel Thompson Signed Date: 10/14/2024 15:18 ET Workstation ID: [id number] Transcribed By: Self Edit Transcribed Date: 10/14/2024 [...] to contact Dr. Isabella Brooks via the [employer]Quan system, [employer] messaging system, and via telephone regarding the above findings wereunsuccessful. -------- FINAL REPORT -------- Dictated By: Samuel Thompson Dictated Date: 10/14/2024 15:01 ET Assigned Physician: Samuel Thompson Reviewed and Electronically Signed By: Samuel Thompson Signed Date: 10/14/2024 15:18 ET Workstation ID: [id number] Transcribed By: Self Edit Transcribed Date: 10/14/2024 15:01 ET Isabella Brooks MD IMG MRI PROCEDURES Final Result from Last 3 Months
--- OUTSIDE RECORDS SUMMARY | 2024-11-23 17:07 | XMS_ITS | Data Portability ---
Author Organization [place] - [facility] Address [address] [address] Care Team Providers Care Bulkhead Carpenter Name Role Phone EDGARD MARCELINO Primary Care [...] Organization Details Recorded Time Vocal cord paralysis 159835817 Active 2023 EDGARD VERDIN MD [address] [facility] 100, [facility] [place], [address] , [place] - [facility] 4 12:45:16 Chronic hoarsenes s 95981998059 05 Active 2023 EDGARD VERDIN MD 100 [facility],[place] [address], [place], [address] , [place] - [facility] [place] 4 12:45:54 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, unilatera l; Note: Date Diagnosed : 11/12/2023 1:50 PM (J38.01) Not Available [facility] 4 02:53:42 Dysphagia 73788821 Active 2023 Dysphagia , unspecifi ed; Note: Date Diagnosed : 11/12/2023 1:50 PM (R13.10) Not Available [facility] 4 02:53:43 Dysphonia 35962088 Active 2023 Other voice and resonance disorders ; Note: Date Diagnosed : 11/12/2023 1:50 PM (R49.8) Not Available [facility] 4 02:53:43 Finding of resonance of voice 926716445 Active 2023 Other voice and resonance disorders ; Note: Date Diagnosed : 11/12/2023 1:50 PM (R49.8) Not Available [facility] 4 02:53:43 History of malignant neoplasm of esophagus 490604907 Active 2023 Personal history of malignant neoplasm of esophagus ; Note: Date Diagnosed : 11/12/2023 1:50 PM (Z85.01) Not Available [facility] 4 02:53:44 Chronic sore throat 269175066 Active 2024 EDGARD VERDIN MD [address] [facility] 100, [place], [address] , [place] [facility] [place] 5 14:23:59 Oropharyn geal dysphagia 17637439 Active 2024 EDGARD VERDIN MD 100 [facility] 100, [place], [address] , [place] - [facility] 5 14:25:56 Problem Notes None recorded. Procedures Surgical History Date Name Laterality Status Provider Name and Address Organization Details Recorded Time 5 FFL_RE completed EDGARD VERDIN MD [address] [facility],[address], [address], [facility] - [facility] 09/06/2024 14:23:53 4 FFL_RE completed EDGARD VERDIN MD [address] [facility],[address], [address], [place] - [facility] 03/03/2024 12:41:19 4 injection of vocal cords completed EDGARD VERDIN MD [address] [facility],[address], [address], [facility] 03/03/2024 12:39:31 Imaging Results Imaging Date Name Status LastModified by Organiz ation Details LastModified Time 11/03/2023 imaging/diag nostic result completed [employer]103 Information not available 03/30/2024 14:23:42 07/20/2023 imaging/diag [...] lisinopril 20 mg tablet active Medication ID: [id number] Bran d Name: lisinopril Send Method: E-Prescribe [...] Updated DateTime 03/03/2024 172.72 cm 25.1 kg/m2 98764.74 g Guillermo Lim [facility] 03/03/2024 12:30:51 Date Recorded Body height Body mass index (BMI) Body weight Provider Name and Address Organization Details Last Updated DateTime 09/06/2024 172.72 cm 25.1 kg/m2 27026.74 g Guillermo Lim [facility] 09/06/2024 14:06:19 Social History None recorded. Functional Status None recorded. Mental Status None recorded. Family History Nothing Reported. Medical History No medical history recorded. Past Encounters Encounter ID Performer Location Encounter Start Date Encounter Closed Date Diagnosis/Indication Diagnosis SNOMED-CT Code Diagnosis ICD10 Code Diagnosis Note [id number] EDGARD VERDIN MD [facility] [address] [address] 03/03/2024 11:34:12 03/03/2024 12:49:27 Vocal cord paralysis [id number] J38.01 Laryngosoc py notable for increased bulk. R cord is still paralyzed. He got a good result. I recommend he f/u in 6 months and call me sooner if his voice worsens. Chronic hoarseness 21111 56655 105 R49.0 improved since surgery but still hoarse [id number] EDGARD VERDIN MD [facility] [address] [address] 09/06/2024 13:52:52 09/06/2024 14:39:28 Vocal cord paralysis 165955826 J38.01 Laryngosco py notable for R cord is still paralysis with a glottic gap. His voice is still serviceabl e but he has lost some of the bulk of the vocal cord. Given his recent other surgeries we agreed it doesn't make sense to have more surgery at this point. We will observe for now. Chronic hoarseness 15688 95664 105 R49.0 stable Chronic sore throat 2754 68783 J31.2 no obvious lesion. may be neuropathi c as he has right eye, throat, neck and shoulder pain. I suggested he see a neurologis t. I also discussed a CT scan but we agreed to defer. Oropharyng eal dysphagia 92101085 R13.12 I discussed a repeat swallow study. [...] - MEDICARE ADVANTAGE PLAN (MEDICARE REPLACEMENT HMO) [id number] Yoseph Orellana [id number] Yoseph Orellana 09/06/2024 1 [employer] - MEDICARE ADVANTAGE PLAN (MEDICARE REPLACEMENT HMO) [id number] Yoseph Orellana [id number] Yoseph Orellana Notes Date Note Type Note [...] per day. Denies heartburn. EDGARD VERDIN MD [address] [place] [address], [place], [address], [facility] - [facility] 09/06/2024 14:28:19
== END 2024-11-23 15:37 | disposition home or self-care (01) ==
LOC: HO.HGS 14:21
PROVIDERS: PCP Internal Medicine; Visit Provider Surgery
DX: C15.9 Malignant neoplasm of esophagus, unspecified (principal)
CPT/HCPCS: 99214

== ENCOUNTER → 2024-11-23 14:21 | Outpatient (BNVA) | payer MEDICARE, SELFPAY | PROVIDERS: PCP Internal Medicine; Visit Provider Surgery | DX: C15.9 Malignant neoplasm of esophagus, unspecified (principal) | CPT/HCPCS: 99212 ==

== ENCOUNTER → 2024-12-06 11:19 | Outpatient (BNVA) | payer MEDICARE, SELFPAY | PROVIDERS: PCP Internal Medicine; Visit Provider Dietitian, Registered ==

== ENCOUNTER → 2024-12-22 14:38 | Outpatient (BNVA) | payer MEDICARE, SELFPAY | PROVIDERS: PCP Internal Medicine; Visit Provider Dietitian, Registered ==

== ENCOUNTER → 2025-01-04 08:04 | Outpatient (BNVA) | payer MEDICARE, SELFPAY | PROVIDERS: PCP Internal Medicine; Visit Provider Dietitian, Registered ==